=== PATIENT | female | born 1950 | race Caucasian/White ===

== ENCOUNTER → 2017-04-17 15:10 | Outpatient (CLI) | payer MEDICARE, OTHER, SELFPAY ==
--- NOTE | 2017-04-17 15:19 | US_ITS ---
STUDY: ULTRASOUND OF THE FEMALE PELVIS - COMPLETE REASON FOR EXAM: Female, 66 years old. Uterine enlargement. TECHNIQUE: Transabdominal and transvaginal. TECHNICAL QUALITY: Adequate. COMPARISON: None. FINDINGS: The uterus is anteverted and is in a midline position. The uterus measures 12.3 x 8 1 x 7.8 cm. Normal uterine cervix. The endometrium measures 8 mm in thickness, and is hyperechoic. There is no demonstrated endometrial mass. There are 2 large fibroids measuring 5.2 x 4.9 x 4.7 cm and 5.1 x 4.3 x 4.3 cm. I.U.D. - The patient does not have an I.U.D. The ovaries are not visualized. No visualized adnexal masses. There is no fluid in the cul-de-sac. Unremarkable distended urinary bladder. US/Transvaginal Non- IMPRESSION: Enlarged uterus secondary to 2 large fibroids measuring 5.2 x 4.9 x 4.7 cm and 5.1 x 4.3 x 4.3 cm. The endometrial thickness is 9 mm with hyperechoic endometrium. This would be thicker than normal for postmenopausal status; however, this may not be a true cross-sectional measurement as the endometrium is distorted by the presence of fibroids. Nonvisualized ovaries. No adnexal masses or free fluid. Electronically Signed: Guerita Velasquez MD at 0:02 EST , Service support ,
--- NOTE | 2017-04-17 15:19 | US_ITS ---
STUDY: ULTRASOUND OF THE FEMALE PELVIS - COMPLETE REASON FOR EXAM: Female, 66 years old. Uterine enlargement. TECHNIQUE: Transabdominal and transvaginal. TECHNICAL QUALITY: Adequate. COMPARISON: None. FINDINGS: The uterus is anteverted and is in a midline position. The uterus measures 12.3 x 8 1 x 7.8 cm. Normal uterine cervix. The endometrium measures 8 mm in thickness, and is hyperechoic. There is no demonstrated endometrial mass. There are 2 large fibroids measuring 5.2 x 4.9 x 4.7 cm and 5.1 x 4.3 x 4.3 cm. I.U.D. - The patient does not have an I.U.D. The ovaries are not visualized. No visualized adnexal masses. There is no fluid in the cul-de-sac. Unremarkable distended urinary bladder. US/Pelvic (Non ) IMPRESSION: Enlarged uterus secondary to 2 large fibroids measuring 5.2 x 4.9 x 4.7 cm and 5.1 x 4.3 x 4.3 cm. The endometrial thickness is 9 mm with hyperechoic endometrium. This would be thicker than normal for postmenopausal status; however, this may not be a true cross-sectional measurement as the endometrium is distorted by the presence of fibroids. Nonvisualized ovaries. No adnexal masses or free fluid. Electronically Signed: Guerita Velasquez MD at 0:02 EST , Service support ,
== END ==
DX: N85.2 Hypertrophy of uterus (principal)
CPT/HCPCS: 76830; 76856

== ENCOUNTER → 2017-07-06 07:22 | Outpatient (CLI) | payer MEDICARE, OTHER, SELFPAY ==
--- NOTE | 2017-07-06 09:14 | RAD_ITS ---
STUDY: X-RAY - LUMBAR SPINE REASON FOR EXAM: Female, 67 years old. Back pain, arthralgia. TECHNIQUE: 3 view(s) of the lumbar spine were obtained. COMPARISON: None FINDINGS: Normal lumbar lordosis. There is a 14-15 degree dextroscoliosis of the lumbar spine centered at L3-4. There is a grade 1 spondylolisthesis of L4 on L5. There is multilevel endplate spondylosis of the lumbar vertebrae. There is multi-level degenerative disc disease with multi-level disc space narrowing. There is no demonstrated fracture. The soft tissue structures are unremarkable. RAD/Lumbar Spine 2 or 3 Views IMPRESSION: Degenerative changes of the spine, as detailed above. Electronically Signed: Олег Burgess MD at 10:00 EDT , Service support ,
[2017-07-06 10:12] LABS: Erythrocyte Sedimentation Rate 10 mm/hr (0-30)
[2017-07-06 10:15] LABS: ALB/GLOB Ratio 0.9 RATIO (0.9-2.4); AST(SGOT) 22 U/L (15-37); Alanine Aminotransfer ALT/SGPT 39 U/L (13-56); Albumin, Serum 3.7 g/dL (3.2-5.0); Alkaline Phosphatase 103 U/L (45-117); Anion Gap 8 (5-15); BUN 10 mg/dL (7-18); BUN/Creat Ratio 14.2 RATIO (10-20); Calcium,Total 8.8 mg/dL (8.5-10.1); Chloride 103 mmol/L (98-107); Cholesterol 175 mg/dL (200); EST Glomerular Filtration Rate 88 mL/min (>60); Est Glom Filt Rate - Afr Amer 107 mL/min (>60); Glucose 110 mg/dL (74-106); High Density Lipoprotein 76 mg/dL; Potassium 3.8 mmol/L (3.5-5.1); Protein, Total 7.7 g/dL (6.4-8.2); Sodium Level 140 mmol/L (136-145); T4 Free Direct 0.73 ng/dL (0.76-1.46); Thyroid Stim Hormone (TSH) 0.09 uIU/mL (0.358-3.74); Triglycerides 131 mg/dL; Very Low Density Lipoprotein 26 mg/dL (5-40)
[2017-07-06 10:16] LABS: T3 Total - Triiodothyronine 1.28 ng/mL (0.6-1.81)
== END ==
PROVIDERS: Family Provider Family Medicine; PCP Family Medicine; Visit Provider Family Medicine
DX: E03.9 Hypothyroidism, unspecified (principal); M25.50 Pain in unspecified joint; R53.83 Other fatigue
CPT/HCPCS: 36415; 72100; 80053; 80061; 84439; 84443; 84480; 85652

== ENCOUNTER 2017-09-24 11:00 | Outpatient (RCR) | payer MEDICARE, OTHER, SELFPAY ==
--- NOTE | 2017-08-21 08:34 | HP.PTREVAL_ITS ---
Tim Hernandez, DO, It has been my pleasure to treat CAMILLE BERNABE over the last 1 visits for back pain. Please see the progress note below for an update on the physical therapy plan of care! Plan Plan: Scap stab ex's, core strengthening, BUE strengthening, UBE, and HEP Goals Goal 1:: Decrease T/S pain x 50% to aid with sleep Goal Time Frame: 4-6 Weeks Goal 2:: Increase B UE strength x 1 grade to aid with IADL's Goal Time Frame: 4-6 Weeks Goal 3:: I with HEP Goal Time Frame: 4-6 Weeks Anticipated Interventions Patient/Client Instruction: Educate patient on: Condition, Plan of Care For the Purpose of:: To improve self management Therapeutic Exercise to Include: Strength training, Endurance training, Dynamic Lumbar Stabilization, Scapular Strength/Stabilization For the Purpose of:: To decrease pain, To increase ROM, To improve muscle performance and motor function Thermo therapy (hot pack): Yes Ultrasound (thermal/non thermal): Yes For the Purpose of:: To decrease pain Please do not hesitate to contact me at [phone] by phone or Fax: if you have questions or concerns regarding this new plan of care! Sincerely, Vinay Prince, PT,
--- NOTE | 2017-09-23 08:11 | HP.PTREVAL_ITS ---
Tim Hernandez, DO, It has been my pleasure to treat CAMILLE BERNABE over the last 10 visits for back pain. Please see the progress note below for an update on the physical therapy plan of care! Subjective: Pt reports she is feeling the best she has felt today. Pt spoke with Dr about blood pressure, he just wants us to monitor it at this time. Objective/Function: T/S pain today is the best it has been at 3/10. Usually rated at 5/10. MMT; B UE's are 5/5 throughout with exception to shoulder flex= 4+/5 and abduction= 4-/5. Pt is becoming I with HEP. Pt is progressing well toward Rx goals as of this date and would benefit from further skilled PT Plan Plan: Scap stab ex's, core strengthening, BUE strengthening, UBE, and HEP. Goals Goal 1:: Decrease T/S pain x 50% to aid with sleep Goal Time Frame: 4-6 Weeks Goal Progress: Progressing Goal 2:: Increase B UE strength x 1 grade to aid with IADL's Goal Time Frame: 4-6 Weeks Goal Progress: Progressing Goal 3:: I with HEP Goal Time Frame: 4-6 Weeks Goal Progress: Progressing Anticipated Interventions Patient/Client Instruction: Educate patient on: Condition, Plan of Care For the Purpose of:: To improve self management Therapeutic Exercise to Include: Strength training, Endurance training, Dynamic Lumbar Stabilization, Scapular Strength/Stabilization For the Purpose of:: To decrease pain, To increase ROM, To improve muscle performance and motor function Thermo therapy (hot pack): Yes Ultrasound (thermal/non thermal): Yes For the Purpose of:: To decrease pain Please do not hesitate to contact me at [phone] by phone or Fax: if you have questions or concerns regarding this new plan of care! Sincerely, Vinay Prince, PT,
--- NOTE | 2017-09-24 11:25 | HP.PTDCSUM ---
HP - PT D/C Summary It has been my pleasure to treat CAMILLE BERNABE under orders from Tim Hernandez DO, for the diagnosis of back pain for a total of 11 visit(s). Discharge Date: Please see the following information for a summary of their discharge status. - Subjective Subjective: Pt reports this is the worst she has felt. Pt has been awake since 2:00 am due to pain. - Pain thoracic spine Pain Intensity (Out of 10): 9 - Objective Objective/Function: Pt has not made any permanent improvements at this time. Pt is in 9/10 pain and has high BP entering the clinic. I recommended pt see PCP or ER today secondary to her above mentioned symptoms. - Goals Goal 1:: Decrease T/S pain x 50% to aid with sleep Goal Progress: Progressing Goal 2:: Increase B UE strength x 1 grade to aid with IADL's Goal Progress: Progressing Goal 3:: I with HEP Goal Progress: Progressing - Plan Plan: Discontinue - D/C Information If there are questions or concerns regarding this patient's physical therapy, please feel free to call me at [phone]. Thank you for the referral of this patient. Sincerely, Vinay Prince, PT,
--- NOTE | 2017-09-24 11:28 | HP.PTDCSUM_ITS ---
HP - PT D/C Summary It has been my pleasure to treat CAMILLE BERNABE under orders from Tim Hernandez DO, for the diagnosis of back pain for a total of 11 visit(s). Discharge Date: Please see the following information for a summary of their discharge status. - Subjective Subjective: Pt reports this is the worst she has felt. Pt has been awake since 2 :00 am due to pain. - Pain thoracic spine Pain Intensity (Out of 10): 9 - Objective Objective/Function: Pt has not made any permanent improvements at this time. Pt is in 9/10 pain and has high BP entering the clinic. I recommended pt see PCP or ER today secondary to her above mentioned symptoms. - Goals Goal 1:: Decrease T/S pain x 50% to aid with sleep Goal Progress: Progressing Goal 2:: Increase B UE strength x 1 grade to aid with IADL's Goal Progress: Progressing Goal 3:: I with HEP Goal Progress: Progressing - Plan Plan: Discontinue - D/C Information If there are questions or concerns regarding this patient's physical therapy, please feel free to call me at [phone]. Thank you for the referral of this patient. Sincerely, Vinay Prince, PT,
== END 2017-09-24 11:56 | disposition home or self-care (01) ==
LOC: PT 11:00
PROVIDERS: Family Provider Family Medicine; PCP Family Medicine; Visit Provider Family Medicine
DX: M54.5 Low back pain (principal); G89.29 Other chronic pain
CPT/HCPCS: 97035; 97110; 97161; 97530

== ENCOUNTER 2017-09-24 11:36 | Observation (INO) | payer MEDICARE, OTHER, SELFPAY ==
[2017-09-24] VITALS (13 sets, daily range): BP systolic 132–207; BP diastolic 75–113; PULSE 71–85; RESP 16–23; TEMP 36.6–36.9; O2SAT 95–99; BMI 43.4; BMI 44.0
--- NOTE | 2017-09-24 12:04 | EKG12_ITS ---
Test Reason : CP
--- NOTE | 2017-09-24 12:04 | RAD_ITS ---
STUDY: X-RAY CHEST REASON FOR EXAM: Female, 67 years old. Chest pain x10 hour TECHNIQUE: PA and lateral views of the chest. COMPARISON: None. FINDINGS: Lungs are hyperexpanded with chronic interstitial changes. There is suggestion on the PA film of a right perihilar nodule measuring 2.5 cm. Consider further evaluation with chest CT since no previous studies are available for comparison. There is no demonstrated pleural abnormality. Normal size heart. Normal mediastinum and diane. Normal visualized pulmonary arteries. Normal visualized aortic arch and descending thoracic aorta. There are diffuse degenerative changes of the visualized thoracic spine. There is degenerative osteoarthritis of the bilateral shoulders. There is no demonstrated abnormality of the visualized soft tissue structures of the upper abdomen. RAD/Chest PA and Lateral IMPRESSION: Hyperexpanded lungs with chronic interstitial changes and possible right perihilar nodule. Consider further evaluation with chest CT. No organized infiltrate or effusion. Electronically Signed: Олег Urbina MD at 12:39 EDT , Service support ,
--- NOTE | 2017-09-24 12:08 | NURSING ---
NO OLD EKGS
[2017-09-24] MEDS: Aspirin 81 MG TAB.CHEW 324 MG PO (12:10)
[2017-09-24 12:21] LABS: Absolute Lymphocyte Count 1.82 X10^3/ul (0.83-4.51); Absolute Neutrophil Count 5.1 X10^3/uL (2.0-7.7); Basophil# 0.03 X10^3/uL; Basophil% 0.4 % (0-1); Eosinophil# 0.14 X10^3/uL; Eosinophils% 1.8 % (0-5); Hematocrit 40.9 % (37-47); Hemoglobin 13.5 g/dl (12.0-15.0); Lymphocyte # 1.82 X10^3/ul (4.0); Lymphocyte % 23.4 % (19-41); Mean Corpuscular Hgb 29.1 pg (27.0-32.0); Mean Corpuscular Volume 88.1 fL (81-99); Mean Platelet Vol. 9.6 fl (6.2-12.0); Monocyte# 0.73 X10^3/uL; Monocyte% 9.4 % (0-10); Neutrophil # 5.06 X10^3/uL (2.7-7.7); Neutrophil % 64.9 % (47-70); Platelet Count 321 K/mm3 (150-450); RBC Distribution Width CV 13.6 % (11.6-14.6); RBC Distribution Width SD 43.8 fl (35.1-43.9); Red Blood Count 4.64 M/mm3 (4.2-5.4); White Blood Count 7.8 K/mm3 (4.4-11.0)
[2017-09-24 12:22] LABS: POSITIVE COUNT NO; POSITIVE DIFFERENTIAL NO; POSITIVE MORPHOLOGY NO
--- NOTE | 2017-09-24 12:26 | NURSING ---
CHEMISTRIES HEMOLIZED.
[2017-09-24 13:11] LABS: Anion Gap 6 (5-15); BUN 14 mg/dL (7-18); BUN/Creat Ratio 20.7 RATIO (10-20); Calcium,Total 9.3 mg/dL (8.5-10.1); Chloride 105 mmol/L (98-107); Creatinine, Serum 0.68 mg/dL (0.55-1.02); EST Glomerular Filtration Rate 92 mL/min (>60); Est Glom Filt Rate - Afr Amer 112 mL/min (>60); Estimated Creatinine Clearance 45.78 ml/min; Glucose 92 mg/dL (74-106); Potassium 3.6 mmol/L (3.5-5.1); Sodium Level 142 mmol/L (136-145)
--- NOTE | 2017-09-24 13:42 | ED.DCSUM_ITS ---
- ER Visit Summary Date of Service: 09/24/17 Chief Complaint: Lightheaded and elevated blood pressure History of Present Illness: The patient is a 67 F who presents with lightheadedness and elevated blood pressure. She states her blood pressure has been elevated and uncontrolled for the past week. This was checked at physical therapy because she had been feeling lightheaded. She called her family physician and does have an appointment in October. However she was advised that if symptoms continue to go to the emergency department. She will also complains of intermittent left-sided chest pain which radiates up into the neck and some pain and her left hand over the past 2 weeks. This is aching. She states been constant for the last 10 hours. She denies shortness of breath or nausea. Physical Examination: Afebrile blood pressure 193/79 vitals otherwise unremarkable Heart regular rate and rhythm Lungs clear Abdomen soft Alert 2+ at radial pulses Test Results: EKG shows sinus rhythm at a rate of 80. CBC BMP normal. Troponin negative. Chest x-ray shows chronic changes questionable right perihilar nodule. Emergency Department Course and Treatment: Patient was given aspirin and placed on a registered nurse cardiac telemetry. On reevaluation her systolic blood pressure has improved to 140s. She now states her pain is resolved. I am concerned given her uncontrolled blood pressure with complaints of left-sided chest pain with radiation to the neck and do feel she should be admitted for serial enzymes and likely stress testing. Her KESHIA score is 1, her heart score is 3. Treatment Plan: [] Disposition: Admit Impression: Chest pain Uncontrolled hypertension This note was generated with [employer] dictation software. It may contain incorrect words, spelling, and punctuation that were not noted in review of the chart prior to signing ED Disposition - Plan for ED Patient: Chief Complaint: Hypertension Referrals: Tim Hernandez DO [Primary Care Provider] -
--- NOTE | 2017-09-24 14:09 | NURSING ---
PCU OBS MAJO YOO
--- NOTE | 2017-09-24 14:14 | HP.PCM_ITS ---
Problem List (1) Chest pain Status: Acute History of Present Illness Date of Admission: 09/24/17 Chief Complaint: chest pain. The patient is a 67 year old F who was working with physical therapy today who is doing shoulder shrugs with therapy and then felt dizzy and then left-sided chest pressure radiating down her left arm. Symptoms resolved after short period of time. Physical therapist was concerned and advised patient come to the emergency room. In the emergency room, patient had a workup that was unremarkable. Patient has never had chest pain like that before. Patient is normally fairly active walking 6000 and 10,000 steps per day but really does not do any other kind exercise. Patient is able to go up stairs where she does get winded but that has been a chronic process for decades and she notes no new changes with that. She does not have chest pain one going upstairs. [] Past Medical History Past Medical History (Chronic Problems): Chronic Problems (Last Updated 07/03/17 @ 15:39 by Kendy Arechiga) Vitamin deficiency (Chronic) Back problem (Chronic) Medical History: Medical History (Last Updated 09/24/17 @ 14:10 by Kimani Sanches DO) Vitamin deficiency (Chronic) E56.9 Back problem (Chronic) M53.9 HTN (hypertension) I10 Allergies latex Allergy (Intermediate, Verified 07/03/17 15:27) Rash Home Medications: Ambulatory Orders Medication Instructions Recorded A-F BETAFOOD 1 tab PO DAILY 07/03/17 Advanced Mitochondrial EGY 1 tab PO DAILY 07/03/17 CATAPLEX 1 tab PO DAILY 07/03/17 CATAPLEX C 1 tab PO DAILY 07/03/17 DRENAMIN 1 tab PO DAILY 07/03/17 LIPOTHIAMINE B 1 tab PO DAILY 07/03/17 Triode - L Thytonine 1 tab PO DAILY 07/03/17 Surgical History: Surgical History (Last Reviewed 09/24/17 @ 14:10 by Kimani Sanches DO) History of removal of cyst Z98.890 Left shoulder Smoking Status: Never smoker Tobacco Use: Non-smoker Alcohol: None Drugs: None - *Family History Paternal Family History: Family History (Last Updated 07/03/17 @ 15:42 by Kendy Arechiga) Mother Anemia Arthritis Breast cancer CVA (cerebral vascular accident) Father Myocardial infarction Heart disease Grandmother Liver disease Son Anxiety History Items: Heart Disease Review of Systems Constitutional: Denies: Chills, Fever, Weight Change Eyes: Denies: Blurred vision, Double vision HEENT: Denies: Head Aches, Sinus Congestion, Sinus Drainage Cardiovascular: Reports: Chest Pain. Denies: Edema Respiratory: Denies: Cough, Shortness of breath at rest, Sputum production Gastrointestinal: Denies: Abdominal Pain, Nausea, Vomiting Genitourinary: Denies: Dysuria Musculoskeletal: Reports: Arm Pain, Back Pain Skin: Denies: Rash, Wounds Neurological: Denies: Numbness, Tingling, Focal weakness Psychiatric: Denies: Anxiety, Depression Endocrine: Reports: Change in Body Habitus - Has put on 10 pounds in the past year, Heat/ Cold Intolerance - Feels hot all the time Hematologic/ Lymphatic: Reports: Easy Bruising. Denies: Easy Bleeding, Hx of blood clot Comment: All review of systems are negative except as mentioned in the history of present illness and the other review of systems. VTE Information - Inpt Only VTE Present on Admission: No VTE Mechan Device Prophylaxis: None VTE Pharm Prophylaxis ordered?: Yes Patient Problems: Active and Suspected Problems (Last Updated 07/03/17 @ 15:39 by Kendy Arechiga) Chest pain (Acute) - Physical Exam General: Alert, Cooperative, No apparent distress, - - No conversational dyspnea. No respiratory distress. HEENT: Atraumatic, Normocephalic Neck: No Nodes, Thyroid Normal Size and Texture Lungs: Clear to auscultation, Normal air movement, No rhonchi, No wheeze Cardiovascular: Regular rate, Regular Rhythm, Normal S1, Normal S2, No murmurs Abdomen: Bowel Sounds Present, Soft, Non Tender, Non-Distended, Obese Extremities: No edema, No Calf Tenderness Skin: No rashes, No breakdown Musculoskeletal: No Tenderness to Palpation of Joints or Extremities, No Muscle Wasting Psych/Mental Status: Normal Affect, Appropriate Vital Signs Temp Pulse Resp BP Pulse Ox 36.8 C 80 17 185/99 H 95 09/24/17 11:37 09/24/17 14:06 09/24/17 14:06 09/24/17 14:06 09/24/17 14:06 Oxygen Delivery Method Room Air Weight: 111.13 kg Body Mass Index (BMI) 43.4 Laboratory Tests Past 24 Hrs 09/24/17 09/24/17 09/24/17 12:15 12:15 12:36 WBC 7.8 RBC 4.64 Hgb 13.5 Hct 40.9 MCV 88.1 MCH 29.1 MCHC 33.0 RDW 13.6 RDW Differential 43.8 Plt Count 321 MPV 9.6 Immature Gran % (Auto) 0.100 Neut % (Auto) 64.9 Lymph % (Auto) 23.4 [place] % (Auto) 9.4 Eos % (Auto) 1.8 Baso % (Auto) 0.4 Absolute Neuts (auto) 5.1 Absolute Lymphs (auto) 1.82 Total Counted Not Reportable Sodium Cancelled 142 Potassium Cancelled 3.6 Chloride Cancelled 105 Carbon Dioxide Cancelled 31.0 Anion Gap Cancelled 6 BUN Cancelled 14 Creatinine Cancelled 0.68 Estim Creat Clear Calc Cancelled 45.78 Est GFR (MDRD) Af Amer Cancelled 112 Est GFR (MDRD) Non-Af Cancelled 92 BUN/Creatinine Ratio Cancelled 20.7 H Glucose Cancelled 92 Calcium Cancelled 9.3 Troponin I Cancelled < 0.015 Chest x-ray reviewed and no acute infiltrates nor pulmonary edema. EKG reviewed and showed normal sinus rhythm without any acute changes. Assessment/Plan All Active Problems (Last Updated 07/03/17 @ 15:39 by Kendy Arechiga) Chest pain (Acute) 1. Chest pain * Heart score of 4 * Recommended patient be admitted to complete a stress test. Patient is normally pretty active and walks around quite a bit so she feels that she would be able to complete a treadmill stress test. Told patient that they will be performed on the . * In the meantime, patient will be on aspirin, have troponin cycled. 2. Hypertension * Fairly new diagnosis for her. Patient has had blood pressures in the past few days. Feel that would be prudent to start her on 5 mg of lisinopril. 3. DVT prophylaxis with Lovenox Code Visit OBSV E&M: [id number] Initial observation care L2
--- NOTE | 2017-09-24 14:37 | NURSING ---
1437 called er charge to receive patient
[2017-09-24] MEDS: Lisinopril 5 MG Tablet PO (16:09)
[2017-09-25 03:05] VITALS: PULSE 74
[2017-09-25 04:29] VITALS: BP 138/77; PULSE 65; RESP 20; TEMP 36.4; O2SAT 96
[2017-09-25 05:33] LABS: Absolute Lymphocyte Count 1.57 X10^3/ul (0.83-4.51); Absolute Neutrophil Count 3.8 X10^3/uL (2.0-7.7); Basophil# 0.02 X10^3/uL; Basophil% 0.3 % (0-1); Eosinophil# 0.19 X10^3/uL; Eosinophils% 3.1 % (0-5); Hematocrit 40.6 % (37-47); Hemoglobin 13.2 g/dl (12.0-15.0); Lymphocyte # 1.57 X10^3/ul (4.0); Mean Corp Hgb Conc 32.5 g/gl (32-36); Mean Corpuscular Volume 89.2 fL (81-99); Mean Platelet Vol. 9.3 fl (6.2-12.0); Monocyte# 0.48 X10^3/uL; Monocyte% 7.9 % (0-10); Neutrophil # 3.79 X10^3/uL (2.7-7.7); Neutrophil % 62.7 % (47-70); Platelet Count 316 K/mm3 (150-450); RBC Distribution Width CV 13.8 % (11.6-14.6); RBC Distribution Width SD 44.8 fl (35.1-43.9); Red Blood Count 4.55 M/mm3 (4.2-5.4); White Blood Count 6.1 K/mm3 (4.4-11.0)
[2017-09-25] MEDS: Aspirin E.C. 81 MG Tablet PO (05:43)
[2017-09-25] MEDS: Lisinopril 5 MG Tablet PO (05:43)
[2017-09-25] MEDS: 0.9% NaCl Peripheral Flush Adult/Peds IV (05:44)
[2017-09-25 05:53] LABS: International Normalized Ratio 0.9; Prothrombin Time (Protime)PT. 12.5 SECONDS (11.7-14.9)
[2017-09-25 05:54] LABS: Partial Thromboplast Time 30.3 Seconds (24.1-36.2)
--- NOTE | 2017-09-25 05:55 | STEWCON_ITS ---
Reason For Study: Chest Pain Stress Results Protocol: Drake Protocol Maximum Predicted HR: 154 bpm Target HR: 131 bpm% Max imum Predicted HR: 92 % DurationHeart Rate Stage (mm:ss) (bpm) BPCom ment Baseline 73 148/88 2cc definity Stage 1 3:00 14 1 180/821.5 CC definity Recovery 86 152/88 Stress Duration: 3:00 mm:ss Maximum Stress HR: 141 bpm Baseline Echocardiogram Findings The estimated ejection fraction is 65 %. Stress Echo Wall motion Data Resting WMIntermediate WMStress WM Resting Wall Motion Wall Motion Stress No regional wall motion No regional wall motion abnormalities noted. abnormalities noted. EKG Data The baseline ECG demonstrates normal sinus rhythm with at rate of _ beats per minute. The patient exercised according to the regular Drake protocol for a total duration of 3:00. The maximum heart rate attained was 148 beats per minute. This was 96% of maximum predicted heart rate. The patient exercised into stage 1 of the Drake protocol. During stress, there were no ST or T wave changes noted to suggest ischemia. No clinical angina was noted. Interpretation Summary The study was technically difficult. Contrast injection was performed. The estimated ejection fraction is 65 %. Normal, adequate, treadmill echocardiogram. Negative for ischemia by EKG and echocardiographic criteria. No anginal symptoms noted. Rare PACs noted. Appropriate blood pressure hypertensive blood pressure response to exercise. Poor exercise capacity for age. Decreased sensitivity due to poor echo windows requiring Definity agent. Final LVEF of 70%. Reason for test termination not documented. No complications. Ordering Physician: Kimani Sanches Performed By: Ted Otero RCS
--- NOTE | 2017-09-25 05:55 | EKG12_ITS ---
Test Reason : AM EKG Blood Pressure : / mmHG Vent. Rate : 074 BPM Atrial Rate : 074 BPM P-R Int : 154 ms QRS Dur : 080 ms QT Int : 434 ms P-R-T Axes : 063 045 063 degrees QTc Int : 481 ms Normal sinus rhythm Normal ECG Reconfirmed by VALENTINA COFFEY, MISTI ([id number]), editor & co founder BAYLEE ADKINS ([id number]) on 09/29/2017 3:25:57 PM Referred By: NAILA Confirmed By:MISTI MONTGOMERY MD
[2017-09-25 06:10] LABS: POSITIVE COUNT NO; POSITIVE DIFFERENTIAL NO; POSITIVE MORPHOLOGY NO
[2017-09-25 06:13] LABS: Anion Gap 6 (5-15); BUN 15 mg/dL (7-18); BUN/Creat Ratio 20.9 RATIO (10-20); Calcium,Total 8.8 mg/dL (8.5-10.1); Chloride 106 mmol/L (98-107); Cholesterol 173 mg/dL (200); Creatinine, Serum 0.72 mg/dL (0.55-1.02); EST Glomerular Filtration Rate 87 mL/min (>60); Est Glom Filt Rate - Afr Amer 105 mL/min (>60); Estimated Creatinine Clearance 45.78 ml/min; Glucose 106 mg/dL (74-106); High Density Lipoprotein 71 mg/dL; Potassium 4.2 mmol/L (3.5-5.1); Sodium Level 143 mmol/L (136-145); Thyroid Stim Hormone (TSH) 3.97 uIU/mL (0.358-3.74); Triglycerides 143 mg/dL; Very Low Density Lipoprotein 29 mg/dL (5-40)
[2017-09-25 06:59] VITALS: PULSE 89
[2017-09-25 10:00] VITALS: BP 143/79; PULSE 84; RESP 16; TEMP 36.4; O2SAT 97
[2017-09-25 10:59] VITALS: PULSE 82
--- NOTE | 2017-09-25 13:16 | DCINST_ITS ---
- Discharge Diagnoses Current Active Problems: Current Active and Chronic Problems (Last Updated 09/24/17 @ 14:10 by Kimani Sanches DO) Chest pain (Acute) Reason(s) for Visit for Discharge Instructions: Chest pain. You will use the following diet at home:: Cardiac Your food should be the consistency of: Regular Your liquids should be the consistency of: Regular/Thin Discharge Activity: Return to Normal Activity Additional Instructions: You should take your blood pressure every morning and keep a log of it to show to your primary care doctor in 1-2 weeks. Continue to exercise and maintain a low salt diet(2 grams). You should continue with your physical therapy sessions at [facility]. Allergies/Adverse Reactions: Allergies latex Allergy (Intermediate, Verified 07/03/17 15:27) Rash Medications to take at Discharge A-F BETAFOOD 2 tab PO BID 07/03/17 Advanced Mitochondrial EGY 1 tab PO BID 07/03/17 CATAPLEX 2 tab PO BID 07/03/17 CATAPLEX C 1 tab PO BID 07/03/17 DRENAMIN 3 tab PO BID 07/03/17 LIPOTHIAMINE B 2 tab PO DAILY 07/03/17 Triode - L Thytonine 1 tab PO DAILY 07/03/17 Aspirin E.C. [Ecotrin] 81 mg PO DAILY@0800 #30 tab 09/25/17 Lisinopril [Zestril] 5 mg PO DAILY #30 tab 09/25/17 The following prescriptions were given: Aspirin E.C. [Ecotrin] 81 mg PO DAILY@0800 #30 tab Lisinopril [Zestril] 5 mg PO DAILY #30 tab Primary Care Physician: Tim Hernandez DO [Primary Care Provider] - Please follow up with your Primary Care Physician in: within 2 weeks Test Results: Test results from this visit will be discussed in further detail at your follow- up appointment, if applicable. Proposed Discharge Date: 09/25/17
--- NOTE | 2017-09-25 13:32 | DS.PCM_ITS ---
Discharge Date and Diagnosis Date of Admission: 09/24/17 Date of Discharge: 09/25/17 - Primary Discharge Diagnosis Active and Suspected Problems (Last Updated 09/24/17 @ 14:10 by Kimani Sanches DO ) Chest pain (Acute) Hypertensive urgency, present on admission Newly diagnosed hypertension - Secondary Discharge Diagnosis Chronic Problems (Last Updated 09/24/17 @ 14:10 by Kimani Sanches DO) Vitamin deficiency (Chronic) Back problem (Chronic) Hospital Course and Treatment Imaging Results: 09/25/17 05:55 Stress Test Echo W/Contrast [ECHO] AM (NON MEDS) Clinical Impression(s) from Imaging Studies Chest X-Ray 09/24/17 12:04 IMPRESSION: Hyperexpanded lungs with chronic interstitial changes and possible right perihilar nodule. Consider further evaluation with chest CT. No organized infiltrate or effusion. Electronically Signed: Олег Urbina MD at 12:39 EDT , Service support , None Operations: None Procedures: Stress test Summary of Care Provided: The patient is a 67 year old F with morbid obesity, chronic back pain, who was working with physical therapy for back pain when she started feeling dizzy and having left-sided chest pressure. This lasted for a short period of time. She was recommended to come to the emergency department. She had previously worked a day prior with a physical therapist and felt slightly dizzy and her blood pressure, when taken, was elevated. She denies any elevated blood pressure issues in the past. She had blood pressure rechecked prior to the next therapy and it was normal. Her systolic blood pressure in the emergency room was between 193-207. She was admitted to the telemetry floor, monitored, no acute events, she underwent stress test that was negative. Patient's blood pressure been elevated during the hospital stay. She was started on lisinopril in the hospital with improvement. He was discharged on aspirin and lisinopril and asked to follow-up with her primary care doctor in 1 week. A blood pressure monitor was also prescribed for her and she was asked to check her blood pressure daily. Discharge Diet: Low fat/ Low Cholesterol, 2000 mg Sodium Diet Discharge Activity: Return to Normal Activity Home Medications: Medications to take at Discharge A-F BETAFOOD 2 tab PO BID 05/04/18 Advanced Mitochondrial EGY 1 tab PO BID 07/03/17 CATAPLEX 2 tab PO BID 07/03/17 CATAPLEX C 1 tab PO BID 07/03/17 DRENAMIN 3 tab PO BID 07/03/17 LIPOTHIAMINE B 2 tab PO DAILY 07/03/17 Triode - L Thytonine 1 tab PO DAILY 07/03/17 Aspirin E.C. [Ecotrin] 81 mg PO DAILY@0800 #30 tab 09/25/17 Lisinopril [Zestril] 5 mg PO DAILY #30 tab 09/25/17 Following Prescrptions Were Given to Patient: Aspirin E.C. [Ecotrin] 81 mg PO DAILY@0800 #30 tab Lisinopril [Zestril] 5 mg PO DAILY #30 tab Primary Care Physician: Tim Hernandez DO [Primary Care Provider] - Please follow up with your Primary Care Physician in: within 2 weeks Disposition: Home Minutes spent on discharge:: 35 Patient Condition:: Stable Medical Necessity - Tobacco Use Smoking Status: Never smoker Tobacco Use: Non-smoker Meaningful Use Info Meaningful Use Diagnoses (Choose all that apply): None applicable Code Visit OBSV E&M: 62486 Observation care discharge
[2017-09-25 13:41] VITALS: BP 153/78; BP 153/85; BP 155/78; PULSE 73; PULSE 77
== END 2017-09-25 13:16 | disposition home or self-care (01) ==
LOC: ED 13:07 → PCU 14:31
PROVIDERS: Emergency Provider Emergency Medicine; Family Provider Family Medicine; PCP Family Medicine; Visit Provider Internal Medicine
DX: I16.0 Hypertensive urgency (principal); R07.89 Other chest pain; I10 Essential (primary) hypertension; E56.9 Vitamin deficiency, unspecified; E66.01 Morbid (severe) obesity due to excess calories; Z68.41 Body mass index [BMI] 40.0-44.9, adult; Z71.3 Dietary counseling and surveillance
CPT/HCPCS: 36415; 71046; 80048; 80061; 84443; 84484; 85025; 85610; 85730; 93005; 93017; 93350; 99218; 99283; Q9957; A4216; C8928; G0378

== ENCOUNTER → 2017-10-23 14:21 | Outpatient (CLI) | payer MEDICARE, OTHER, SELFPAY ==
[2017-10-23 15:36] LABS: Anion Gap 9 (5-15); BUN 13 mg/dL (7-18); BUN/Creat Ratio 17.6 RATIO (10-20); Chloride 104 mmol/L (98-107); Creatinine, Serum 0.74 mg/dL (0.55-1.02); EST Glomerular Filtration Rate 83 mL/min (>60); Est Glom Filt Rate - Afr Amer 101 mL/min (>60); Glucose 120 mg/dL (74-106); Sodium Level 143 mmol/L (136-145)
== END ==
PROVIDERS: Family Provider Family Medicine; PCP Family Medicine; Visit Provider Nurse Practitioner Family
DX: I10 Essential (primary) hypertension (principal)
CPT/HCPCS: 36415; 80048

== ENCOUNTER 2017-11-11 08:09 | Outpatient (RCR) | payer MEDICARE, OTHER, SELFPAY | END 2017-11-29 23:59 | LOC: NS 08:09 | PROVIDERS: Family Provider Family Medicine; PCP Family Medicine; Visit Provider Family Medicine | DX: E66.9 Obesity, unspecified (principal); Z68.41 Body mass index [BMI] 40.0-44.9, adult; Z71.3 Dietary counseling and surveillance | CPT/HCPCS: 97802 ==

== ENCOUNTER 2017-12-15 13:00 | Outpatient (RCR) | payer MEDICARE, OTHER, SELFPAY | END 2017-12-30 23:59 | LOC: NS 13:00 | PROVIDERS: Family Provider Family Medicine; PCP Family Medicine; Visit Provider Family Medicine | DX: E66.9 Obesity, unspecified (principal); Z68.41 Body mass index [BMI] 40.0-44.9, adult; Z71.3 Dietary counseling and surveillance | CPT/HCPCS: 97803 ==

== ENCOUNTER 2018-01-20 14:30 | Outpatient (RCR) | payer MEDICARE, OTHER, SELFPAY | END 2018-01-29 23:59 | LOC: NS 14:30 | PROVIDERS: Family Provider Family Medicine; PCP Family Medicine; Visit Provider Family Medicine | DX: E66.9 Obesity, unspecified (principal); Z68.41 Body mass index [BMI] 40.0-44.9, adult; Z71.3 Dietary counseling and surveillance | CPT/HCPCS: 97803 ==

== ENCOUNTER 2018-02-10 13:54 | Outpatient (RCR) | payer MEDICARE, OTHER, SELFPAY ==
[2018-01-14 13:14] VITALS: BMI 42.7
== END 2018-03-01 23:59 ==
LOC: NS 13:54
PROVIDERS: Family Provider Family Medicine; PCP Family Medicine; Visit Provider Family Medicine
DX: E66.9 Obesity, unspecified (principal); Z68.41 Body mass index [BMI] 40.0-44.9, adult; Z71.3 Dietary counseling and surveillance
CPT/HCPCS: 97803

== ENCOUNTER 2018-04-01 14:00 | Outpatient (RCR) | payer MEDICARE, OTHER, SELFPAY ==
[2018-01-14 13:14] VITALS: BMI 42.7
== END 2018-04-01 23:59 ==
LOC: NS 14:00
PROVIDERS: Family Provider Family Medicine; PCP Family Medicine; Visit Provider Family Medicine
DX: E66.9 Obesity, unspecified (principal); Z68.41 Body mass index [BMI] 40.0-44.9, adult; Z71.3 Dietary counseling and surveillance
CPT/HCPCS: 97803

== ENCOUNTER 2018-04-29 15:30 | Outpatient (RCR) | payer MEDICARE, OTHER, SELFPAY ==
[2018-01-14 13:14] VITALS: BMI 42.7
== END 2018-04-29 23:59 ==
LOC: NS 15:30
PROVIDERS: Family Provider Family Medicine; PCP Family Medicine; Visit Provider Family Medicine
DX: E66.9 Obesity, unspecified (principal); Z68.41 Body mass index [BMI] 40.0-44.9, adult; Z71.3 Dietary counseling and surveillance
CPT/HCPCS: 97803

== ENCOUNTER 2018-05-18 14:24 | Outpatient (RCR) | payer MEDICARE, OTHER, SELFPAY ==
[2018-01-14 13:14] VITALS: BMI 42.7
== END 2018-05-30 23:59 ==
LOC: NS 14:24
PROVIDERS: Family Provider Family Medicine; PCP Family Medicine; Visit Provider Family Medicine
DX: E66.9 Obesity, unspecified (principal); Z68.41 Body mass index [BMI] 40.0-44.9, adult; Z71.3 Dietary counseling and surveillance
CPT/HCPCS: 97803

== ENCOUNTER 2018-06-01 10:43 | Outpatient (RCR) | payer SELFPAY ==
[2018-01-14 13:14] VITALS: BMI 42.7
== END 2018-06-01 23:59 | disposition home or self-care (01) ==
LOC: NS 10:43
PROVIDERS: Family Provider Family Medicine; PCP Family Medicine; Visit Provider Family Medicine
DX: E66.9 Obesity, unspecified (principal); Z68.41 Body mass index [BMI] 40.0-44.9, adult; Z71.3 Dietary counseling and surveillance
CPT/HCPCS: 97803

== ENCOUNTER → 2019-04-21 12:56 | Outpatient (CLI) | payer MEDICARE, OTHER, SELFPAY ==
[2018-07-14 14:39] VITALS: BMI 42.7
--- NOTE | 2019-04-21 13:04 | BI_ITS ---
MAMMOGRAPHY - BILATERAL SCREENING REASON FOR EXAM: Female, 68 years old. Routine annual screening examination. PERTINENT HISTORY: Mother with breast cancer. TECHNIQUE: Digital bilateral breast amparo (3D mammographic acquisition) in the CC and MLO projections. 2-D mediolateral oblique (MLO) and craniocaudad (CC) views of both breasts were obtained. CAD: Full Field Digital Mammography with Computer Added Detection was performed. COMPARISON: No comparison mammograms available at this time. If any prior films become available, an addendum to this report can be generated. FINDINGS: Breast Composition: There are scattered areas of fibroglandular density. There are no dominant masses or suspicious calcifications. No other significant abnormalities are identified. BI/SCREEN MAMM (CAD) W/AMPARO BILAT IMPRESSION: Negative screening mammogram. Yearly followup mammogram recommended. (A) ASSESSMENT CATEGORY: BIRADS Category 1: Negative. A letter regarding these results will be sent to the patient by the facility within 30 days. Approximately 10% of breast cancers are not detected by mammography. A normal mammogram should not delay biopsy of a clinically suspicious abnormality. [id number] Electronically Signed: Mario Randolph, at 15:36 EST , Service support ,
--- NOTE | 2019-04-21 13:46 | BD_ITS ---
STUDY: DUAL ENERGY X-RAY ABSORPTIOMETRY / DXA REASON FOR EXAM: Female, 68 years old. Age of rochelle- 51. Pat is 242.6# and 63 and quot; a loss of 2 and quot; per patient. Patient takes a medication called Nature Thyroid from her dr. Takes a multi-vit. Does not exercise. TECHNIQUE: Bone Mineral Density (BMD) measurements of lumbar spine and bilateral hips were obtained. COMPARISON: None. FINDINGS: Lumbar Spine (L1-L4): g/cm2 (1.141) / T-score (-0.3) / Z-score (1.3) Findings are suggestive of normal bone density with a low fracture risk. Left Femur Total: g/cm2 (1.035) / T-score (0.2) / Z-score (1.6) Left Femoral Neck: g/cm2 (0.849) / T-score (-1.4) / Z-score (0.2) Right Femur Total: g/cm2 (1.039) / T-score (0.2) / Z-score (1.6) Right Femoral Neck: g/cm2 (0.895) / T-score (-1.0) / Z-score (0.6) BD/Dexa Bone Density Study IMPRESSION: The patient is considered osteopenic as outlined below according to World Rony Organization (WHO) criteria with a low fracture risk. Reference Information: The T-score is the number of standard deviations above or below the standard which is normal for young adults at their peak bone mineral density. The World Health Organization (WHO) interprets the T-scores as follows: Above -1 Normal bone density Between -1 and -2.5 Osteopenia Equal to / or below -2.5 Osteoporosis As a practical clinical guideline, osteopenia may be graded as follows: Mild -1 through -1.5 Moderate -1.6 through -2.0 Severe -2.1 through -2.4 The Z-score is the number of standard deviations above or below age-matched controls. A Z-score of less than -1.5 would be considered abnormal. References: 1. NIH Osteoporosis and Related Bone Diseases http://www.osteo.org 2. International Society for Clinical Densitometry http://www.iscd.org 3. National Osteoporosis Foundation http://www.nof.org Electronically Signed: Mario Randolph, at 13:19 EST , Service support ,
== END ==
PROVIDERS: PCP Internal Medicine; Referring Provider Internal Medicine; Visit Provider Internal Medicine
DX: Z12.31 Encounter for screening mammogram for malignant neoplasm of breast (principal); Z78.0 Asymptomatic menopausal state
CPT/HCPCS: 77063; 77067; 77080

== ENCOUNTER → 2019-07-28 08:53 | Outpatient (CLI) | payer MEDICARE, OTHER, SELFPAY ==
[2019-07-14 11:03] VITALS: BMI 43.7
--- NOTE | 2019-07-28 08:54 | RDU_ITS ---
Reason For Study: HTN Right Renal Artery Left Renal Artery Right renal artery ostium 71.6/20.5 Left renal artery ostium 73.4/15.0 RSV/EDV. PSV/EDV. Right renal artery proximal Left renal artery proximal PSV/EDV 99.0/15.0 PSV/EDV. 57.0/18.6 . Right renal artery mid 95.3/22.3 Left renal artery mid 84.4/22.3 PSV/EDV. PSV/EDV . Right renal artery distal 111.8/35.1 Left renal artery distal 145.6/31.6 PSV/EDV. PSV/EDV. Right Renal Parenchyma Left Renal Parenchyma Upper Pole Medula 23.7/8.4 PSV/EDV. Left upper pole medulla 48.6/14.8 Right upper pole medulla EDR .35 . PSV/EDV . Right upper pole medulla R.I. .65 . Left upper pole medulla EDR .3 . Upper Azeem Cortx 16.6/4.5 PSV/EDV. Left upper pole medulla R.I. .7 . Right upper pole cortex EDR .27 . UP Cortex 37.6/11.1 PSV/EDV. Right upper pole cortex R.I. .73 . Left upper pole cortex EDR .3 . Right lower Pole medulla 13.8/6.2 Left upper pole cortex R.I. .7 . PSV/EDV . Left lower Pole medulla 33.1/14.8 Right lower pole medulla EDR .44 . PSV/EDV . Right lower pole medulla R.I. .56 . Left lower pole medulla EDR .45 . Lower Pole Cortex 14.9/5.6 PSV/EDV. Left lower pole medulla R.I. .55 . Right lower pole cortex EDR .38 . Lower Pole Cortx 17.5/7.5 PSV/EDV. Right lower pole cortex R.I. .62 . Left lower pole cortex EDR .43 . Right Renal Hilar Left lower pole cortex R.I. .57 . Right Hilar avg 34.0/11.1 PSV/EDV. Left Renal Hilar Right hilar acceleration time 20.0 LT Hilar avg 76.7/22.3 PSV/EDV . m/sec. Left hilar acceleration time 40.0 Right Renal Dimensions m/sec. Right kidney size 14.95 cm . Left Renal Dimensions Right cortical dimension .93 cm . Left kidney size 12.62 cm . Hypoechoic area right kidney Left cortical dimension 1.34 cm . measuring 4.24 x 5.58 cm. Area is nonvascular. Aorta Proximal abdominal aorta 1.54 x 1.5 cm . Proximal abdominal aorta peak systolic velocity is 120.9 cm/sec . Distal abdominal aorta 1.51 x 1.48 cm . Distal abdominal aorta peak systolic velocity is 95.3 cm/sec . Normal renal veins bilat. Interpretation Summary There is no evidence of hemodynamically significant renal artery stenosis on either side. Ordering Physician: Nestor Do Performed By: Rolly Liz RVT
== END ==
PROVIDERS: PCP Internal Medicine; Referring Provider Internal Medicine Cardiovascular Disease; Visit Provider Internal Medicine Cardiovascular Disease
DX: I10 Essential (primary) hypertension (principal); E66.9 Obesity, unspecified
CPT/HCPCS: 93975

== ENCOUNTER → 2019-08-02 06:38 | Outpatient (CLI) | payer MEDICARE, OTHER, SELFPAY ==
[2019-07-14 11:03] VITALS: BMI 43.7
--- NOTE | 2019-08-02 06:40 | ECHOD_ITS ---
Reason For Study: CHEST PAIN Procedure This was a 2D Doppler, Color Flow transthoracic echocardiogram. The study was technically difficult. PT could not tolerate anything touching her skin. Exam performed in department. Left Ventricle Normal LV size. Left ventricular systolic function is normal. The estimated ejection fraction is 65 %. There is evidence of diastolic dysfunction. No regional wall motion abnormalities noted. Right Ventricle Normal RV size. Normal systolic function. Atria The left atrium is mildly enlarged. The right atrium is mildly enlarged. No doppler evidence for ASD. Mitral Valve There is no mitral annular calcification. Normal mitral valve. Trivial mitral valve insufficiency. Tricuspid Valve Normal tricuspid valve. Trivial tricuspid valve insufficiency. Unable to estimate RV systolic pressure/pulmonary artery pressure due to technically difficult study. Aortic Valve Trisinus/trileaflet aortic valve. Normal aortic valve. Pulmonic Valve The pulmonic valve is not well visualized. Trivial pulmonic valve insufficiency. Great Vessels Normal sized aortic root. Pericardium/Pleural No pericardial effusion. MMode/2D Measurements & Calculations LVIDd: 5.2 cm IVSd: 0.85 cm Ao root diam: 3.3 cm LVIDs: 3.3 cm LVPWd: 0.87 cm RVDd: 3.3 cm FS: 37.1 % LAV(MOD-bp): 83.7 ml LA A4 area: 24.3 cm2 LA dimension(2D): 3.8 cm LAV(MOD-bp) Indexed: 39.8 ml/m2 LAV(MOD-sp2): 78.5 ml LAV(MOD-sp4): 78.4 ml RA A4 area: 21.1 cm2 Time Measurements MV dec time: 0.23 sec Doppler Measurements & Calculations MV E max shaquille: 78.8 cm/sec Lat Peak E' Shaquille: 9.8 cm/sec Med Peak E' Shaquille: 5.1 cm/sec MV A max shaquille: 93.8 cm/sec E/E' lat: 8.1 E/E' med: 15.6 MV E/A: 0.84 Ao V2 max: 187.6 cm/sec LV V1 max: 134.7 cm/sec PA V2 max: 115.9 cm/sec Ao max P.1 mmHg LV V1 max P.3 mmHg Ao V2 mean: 131.4 cm/sec LV V1 mean P.1 mmHg Ao mean P.7 mmHg LV V1 mean: 97.4 cm/sec Ao V2 VTI: 37.5 cm LV V1 VTI: 28.0 cm Interpretation Summary The study was technically difficult. Left ventricular systolic function is normal. The estimated ejection fraction is 65 %. The left atrium is mildly enlarged. The right atrium is mildly enlarged. Trivial mitral valve insufficiency. Trivial tricuspid valve insufficiency. Trivial pulmonic valve insufficiency. Unable to estimate RV systolic pressure/pulmonary artery pressure due to technically difficult study. There is evidence of diastolic dysfunction. Ordering Physician: Nestor Do Referring Physician: Beryl Keane Performed By: Nidia Dickey, BANDARCS, RVT
--- NOTE | 2019-08-02 09:33 | STRESSREP_ITS ---
Stress Test Report Date: 08-02-2019 Procedure: Pharmacologic stress nuclear imaging study Indications: Chest pain Consent: Per the patient Procedure: The patient underwent pharmacologic (Regadenoson) evaluation with a peak heart rate of 103 beats per minute (67 %predicted maximal heart rate) and a peak blood pressure of 140/78 mmHg. The baseline ECG demonstrated normal sinus rhythm. The peak pharmacologic ECG demonstrated no obvious ECG changes. [There were no cardiac dysrhythmias pretest, during pharmacologic infusion, or recovery]. [There was no complaint of chest discomfort during pharmacologic infusion or recovery]. The examination was discontinued secondary to completion of protocol. Impression: 1. Pharmacologic (Regadenoson) evaluation 2. Peak pharmacologic ECG with no obvious ECG changes. 3. [There were no cardiac dysrhythmias pretest, during pharmacologic infusion, or recovery]. 4. Nuclear images pending Myocardial perfusion imaging study: Technique: The patient was injected with 14.0 millicuries of technetium 99m Cardiolite and subsequently rest SPECT Cardiolite nuclear imaging was obtained in the horizontal long, vertical long, and short axis views. The patient underwent pharmacologic (Regadenoson) evaluation with a peak heart rate of 103 beats per minute (67 % percent predicted maximal heart rate) and a peak blood pressure of 140/78 mmHg. The patient was injected with 44.0 millicuries of technetium 99m Cardiolite and subsequently stress SPECT Cardiolite nuclear imaging was obtained in the horizontal long, vertical long, and short axis views. A gated Cardiolite study at peak stress was obtained. Interpretation: Rest and stress SPECT Cardiolite nuclear imaging status post realignment, normalization, and attenuation correction demonstrate at rest a small area of subtle diminished tracer uptake near the distal anterior segments which status post stress appears to improve/normalize. There are similar type findings on the resting and stress polar map images. [There is end systolic thickening and brightening]. [The gated Cardiolite study demonstrates myocardial thickening and inward wall motion]. The reported LVEF is 68 %. Impression: 1. Rest and stress myocardial nuclear imaging demonstrate myocardial perfusion changes appearing compatible with the effects of shifting soft tissue attenua tion/artifact being more prominent at rest as opposed to stress with no myocardial perfusion changes considered diagnostic for associated stress-induced myocardial ischemia. 2. The gated Cardiolite study reports an LVEF of 68 %. This note was generated with Dragon dictation software. It may contain incorrect words, spelling, and punctuation that were not noted in checking the note before signing.
== END ==
PROVIDERS: PCP Internal Medicine; Referring Provider Internal Medicine Cardiovascular Disease; Visit Provider Internal Medicine Cardiovascular Disease
DX: R07.9 Chest pain, unspecified (principal); I10 Essential (primary) hypertension; E66.9 Obesity, unspecified
CPT/HCPCS: 78452; 93017; 93306; A9500; A4216; J2785

== ENCOUNTER → 2020-09-13 15:15 | Outpatient (CLI) | payer MEDICARE, OTHER, SELFPAY ==
[2019-11-04 11:08] VITALS: BMI 41.8
--- NOTE | 2020-09-13 15:18 | VDLE_ITS ---
Reason For Study: pain RIGHT GSV is normal. CFV is compressible, spontaneous, phasic, competent and demonstrates normal augmentation. FV is compressible, spontaneous, phasic, competent and demonstrates normal augmentation. POP V is compressible, spontaneous, phasic, competent and demonstrates normal augmentation. T/P Trunk is compressible. PTV is compressible. RT PerV is compressible. Procedure This is a venous duplex using B-mode, color flow and spectral Doppler. Exam performed in department. The exam was abbreviated due to the COVID 19 protocol. The exam was diagnostic. A preliminary report was called and/or faxed to Dr. Keane. VL/Venous Duplex US, Unilateral Interpretation Summary Deep veins of the right lower extremity are patent and compressible segmentally . There is no evidence of right lower extremity deep vein thrombosis. Valvular competence radha ears intact within the proximal deep venous system on the right . The right great saphenous vein a ppears patent and compressible segmentally. Ordering Physician: Beryl Keane Performed By: Rolly Liz RVT
== END ==
PROVIDERS: PCP Internal Medicine; Referring Provider Internal Medicine; Visit Provider Internal Medicine
DX: M79.661 Pain in right lower leg (principal)
CPT/HCPCS: 93971

== ENCOUNTER 2021-06-20 09:21 | Outpatient (CLI) | payer MEDICARE, OTHER, SELFPAY ==
--- NOTE | 2021-06-20 09:32 | BD_ITS ---
STUDY: DUAL ENERGY X-RAY ABSORPTIOMETRY / DXA REASON FOR EXAM: Female, 71 years old. [id number] TECHNIQUE: Bone Mineral Density (BMD) measurements of lumbar spine and bilateral hips were obtained. COMPARISON: Comparison is made with prior study dated 04/21/2019. FINDINGS: Lumbar Spine (L1-L4): g/cm2 (1.033) / T-score (-0.6) / Z-score (1.6) Findings are suggestive of normal bone density with a low fracture risk. Left Femur Total: g/cm2 (1.029) / T-score (0.7) / Z-score (2.2) Left Femoral Neck: g/cm2 (0.735) / T-score (-1.0) / Z-score (0.8) Right Femur Total: g/cm2 (0.999) / T-score (0.5) / Z-score (2.0) Right Femoral Neck: g/cm2 (0.692) / T-score (-1.4) / Z-score (0.4) The T-Scores on the most recent prior examination were: Lumbar Spine (L1-L4): There has been improvement of bone density since the previous examination. Left Femur Total: which represents an improvement of 6.3%. Right Femur Total: which represents an improvement of 2.8%. BD/Dexa Bone Density Study IMPRESSION: The patient is considered osteopenic as outlined below according to World Rony Organization (WHO) criteria with a low fracture risk. There has been improvement of bone density since the previous examination. Reference Information: The T-score is the number of standard deviations above or below the standard which is normal for young adults at their peak bone mineral density. The World Health Organization (WHO) interprets the T-scores as follows: Above -1 Normal bone density Between -1 and -2.5 Osteopenia Equal to / or below -2.5 Osteoporosis As a practical clinical guideline, osteopenia may be graded as follows: Mild -1 through -1.5 Moderate -1.6 through -2.0 Severe -2.1 through -2.4 The Z-score is the number of standard deviations above or below age-matched controls. A Z-score of less than -1.5 would be considered abnormal. References: 1. NIH Osteoporosis and Related Bone Diseases www osteo.org 2. International Society for Clinical Densitometry www iscd.org 3. National Osteoporosis Foundation www nof.org Electronically Signed: Mario Randolph MD at 15:30 EDT ,
== END 2021-06-20 23:59 | disposition home or self-care (01) ==
LOC: OPBD 09:22
PROVIDERS: PCP Internal Medicine; Visit Provider Internal Medicine
DX: Z78.0 Asymptomatic menopausal state (principal)
CPT/HCPCS: 77080

== ENCOUNTER → 2022-10-01 | Outpatient (CLI) | payer MEDICARE, OTHER, SELFPAY ==
--- NOTE | 2022-10-01 07:18 | US_ITS ---
STUDY: ABDOMINAL ULTRASOUND - RIGHT UPPER QUADRANT REASON FOR VISIT: Female, 72 years old RUQ pain TECHNIQUE: Ultrasound evaluation of the right upper quadrant was performed with real-time and static hernandez-scale imaging. TECHNICAL QUALITY: Adequate. COMPARISON: None. FINDINGS: Liver: The liver is enlarged and measures 22.3 cm. There is increased echogenicity consistent with fatty infiltration. The bile ducts are within normal limits. There is hepatic color flow. The direction of portal flow is hepatopetal. There is no demonstrated mass lesion. Focal fatty sparing is seen in the region of the gallbladder fossa. Gallbladder: Normal distended gallbladder. The gallbladder wall measures 2.2 mm. There is a negative sonographic Orlando''s sign. There is no pericholecystic fluid. There are no gallstones. Common Bile Duct (C.B.D.): The common bile duct measures 3.0 mm. Pancreas: Normal size of the head, body and tail of the pancreas. There is normal echogenicity of the pancreas. There is no demonstrated pancreatic mass or cyst. Right Kidney: Normal size of the right kidney. The right kidney measures 14.2 cm x 7.1 cm x 4 cm. Normal renal cortex. The right cortex measures 1.7 cm. There is a 7.9 cm x 8.3 cm x 6.4 cm right renal cyst. There is no right hydronephrosis. US/Abdomen Limited IMPRESSION: Hepatomegaly and fatty infiltration of the liver with focal fatty sparing in the region of the gallbladder fossa. 7.9 cm x 8.3 cm x 6.4 cm right renal cyst. Electronically Signed: Mario Randolph MD at 8:48 EDT ,
== END | disposition home or self-care (01) ==
LOC: US 07:17
PROVIDERS: PCP Internal Medicine; Referring Provider Internal Medicine; Visit Provider Internal Medicine
DX: R10.11 Right upper quadrant pain (principal)
CPT/HCPCS: 76705

== ENCOUNTER → 2022-10-29 | Outpatient (CLI) | payer MEDICARE, OTHER, SELFPAY ==
--- NOTE | 2022-10-29 07:52 | CT_ITS ---
HISTORY: right upper quadrant pain. TECHNIQUE: Helically acquired images were obtained of the abdomen and pelvis after the intravenous administration of 100 mL Isovue 300. Oral contrast also administered. A radiation dose optimization technique was used for this scan. 456 images. COMPARISON: US 10/01/2022. FINDINGS: LOWER CHEST: Lung bases clear. BOWEL: Bowel including appendix nondilated. Colonic diverticulosis without focal inflammatory change observed. PERITONEUM: No significant ascites. LIVER: 18 cm in length. Fatty infiltration. 7 mm cyst in the left lobe. GALLBLADDER/BILIARY TREE: Gallbladder present. SPLEEN/PANCREAS/ADRENAL GLANDS: Homogeneous and nonenlarged. KIDNEYS: 7 x 8.5 cm cyst in the right kidney. 6 mm fat-containing lesion in the left kidney. No hydronephrosis. VESSELS: No abdominal aortic aneurysm. Mild atherosclerosis. PELVIC ORGANS: 4.8 cm and 5.2 cm round uterine masses. ABDOMINAL WALL: Tiny fat containing umbilical hernia. BONES: Vacuum disc phenomenon, degenerative endplate change, and mild anterolisthesis of L4-5. CT/Abdomen/Pelvis WITH Contrast IMPRESSION: Hepatic steatosis with hepatomegaly. Small cyst in the left hepatic lobe. 8.5 cm right renal cyst. 6 mm left renal angiomyolipoma. Colonic diverticulosis without acute diverticulitis. Leiomyomatous uterus. Electronically Signed: Preeti Villasenor MD at 9:15 EDT ,
== END | disposition home or self-care (01) ==
LOC: CT 07:51
PROVIDERS: PCP Internal Medicine; Referring Provider Internal Medicine; Visit Provider Internal Medicine
DX: R10.11 Right upper quadrant pain (principal)
CPT/HCPCS: 74177; Q9967

== ENCOUNTER → 2023-10-02 | Outpatient (CLI) | payer MEDICARE, SELFPAY ==
[2023-10-02 10:34] LABS: Absolute Lymphocyte Count 1.73 X10^3/uL (0.83-4.51); Absolute Neutrophil Count 4.4 X10^3/uL (2.0-7.7); Basophil# 0.03 X10^3/uL; Basophil% 0.4 % (0-1); Hemoglobin 13.8 g/dL (12.0-15.0); Lymphocyte # 1.73 X10^3/ul (0.83-4.51); Lymphocyte % 25.4 % (19-41); Mean Corp Hgb Conc 31.4 g/dL (32-36); Mean Corpuscular Volume 89.2 fL (81-99); Mean Platelet Vol. 9.9 fl (6.2-12.0); Monocyte# 0.58 X10^3/uL; Monocyte% 8.5 % (0-10); NRBC Flagged by Analyzer 0 % (0-5); Neutrophil # 4.44 X10^3/uL (2.7-7.7); Neutrophil % 65.4 % (47-70); Platelet Count 357 K/mm3 (150-450); RBC Distribution Width CV 13.4 % (11.6-14.6); RBC Distribution Width SD 43.9 fl (35.1-43.9); Red Blood Count 4.93 M/mm3 (4.2-5.4); White Blood Count 6.8 K/mm3 (4.4-11.0)
[2023-10-02 10:46] LABS: AST(SGOT) 25 U/L (15-37); Alanine Aminotransfer ALT/SGPT 33 U/L (13-56); Albumin, Serum 3.7 g/dL (3.2-5.0); Alkaline Phosphatase 101 U/L (45-117); Amylase 42 U/L (25-115); Anion Gap 5 (5-15); BUN 13 mg/dL (7-18); BUN/Creat Ratio 16.4 RATIO (10-20); Bilirubin, Direct 0.11 mg/dL (0.00-0.30); Calcium,Total 9.4 mg/dL (8.5-10.1); Chloride 106 mmol/L (98-107); Creatinine, Serum 0.79 mg/dL (0.55-1.02); EST Glomerular Filtration Rate 76 mL/min (>60); Est Glom Filt Rate - Afr Amer 91 mL/min (>60); Globulin 3.7 g/dL (2.2-4.2); Glucose 124 mg/dL (74-106); Lipase 30 U/L (13-75); Potassium 4.5 mmol/L (3.5-5.1); Protein, Total 7.4 g/dL (6.4-8.2); Sodium Level 141 mmol/L (136-145)
== END | disposition home or self-care (01) ==
PROVIDERS: PCP Internal Medicine; Referring Provider Nurse Practitioner Family; Visit Provider Nurse Practitioner Family
DX: R10.9 Unspecified abdominal pain (principal)
CPT/HCPCS: 80048; 80076; 82150; 83690; 85025

== ENCOUNTER → 2024-02-29 | Outpatient (CLI) | payer MEDICARE, SELFPAY ==
--- NOTE | 2024-02-29 16:02 | US_ITS ---
STUDY: ULTRASOUND OF THE FEMALE PELVIS - LIMITED REASON FOR EXAM: Female, 73 years old ULTRASOUND, PELVIS, COMPLETE -- Vaginal bleeding, abnormal TECHNIQUE: Transabdominal TECHNICAL QUALITY: Adequate. COMPARISON: None. FINDINGS: The uterus is anteverted and is in a midline position. The uterus measures 10.0 x 10.3 x 6.9 cm. Normal uterine cervix. The endometrium measures 8 mm in thickness, and is fluid distended. There is no demonstrated endometrial mass. 5.4 cm exophytic hypoechoic mass in the anterior fundus the uterus consistent with a subserosal fibroid. Another 5.1 cm round hypoechoic mass in the fundus the uterus consistent with an intramural fibroid. The ovaries are not visualized.. There is no fluid in the cul-de-sac. US/Pelvic (Non ) IMPRESSION: Enlarged fibroid uterus. Some endometrial fluid. Nonvisualization ovaries. Electronically Signed: Jimenez Iniguez MD at 13:43 EST ,
== END | disposition home or self-care (01) ==
LOC: US 16:01
PROVIDERS: PCP Internal Medicine; Referring Provider Internal Medicine; Visit Provider Internal Medicine
DX: N93.9 Abnormal uterine and vaginal bleeding, unspecified (principal)
CPT/HCPCS: 76856

== ENCOUNTER 2024-04-08 12:30 | Outpatient (RCR) | payer MEDICARE, SELFPAY ==
--- NOTE | 2024-02-03 11:57 | HP.PTEVAL_ITS ---
Patient's Visit Information Visit Information Visit Information: CAMILLE BERNABE is a 73 year old F referred to Physical Therapy by Dr. Beryl Keane DO with a diagnosis of R knee pain, R shoulder pain. Date of Evaluation: 02/03/24 Physical Therapist: Kimani Wills, DPT, OCS, CSCS Visit Plan Frequency: 2x /Week Duration: 4-6 Weeks Plan: 2x/week for 4-6 weeks sstarting aquatic therapy for R shoulder strength and pec stretch R hip and knee strength Progressing to general overall ex in pool and via HEP to complement. Consider need for US, TENS, Manual after pool if still inflamed. Subjective Subjective: R shoulder has been hurting down into arm. A month ago it started insidiously. Has h/o chronic neck funniness. Pain is anterior lateral and worse with reaching out to side and rotating out. No numbness r tingling, maybe a little in 2nd digit on R intermittently. Sleep is interrupted with pain in R shoulder and sleeps all over starting on R side. Pulling covers with R hurts and then it aggravated. Activities: avoids L side, carefull with use of R UE. Dressing is not a problem. Basic ADLs are getting done. Reaching behind is not a problem. R knee can also hurt, treating by chiropractor. Knee feels good this week. 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 No regular ex. Spends day walking for chores and worsens knee. Has to be careful with chores. Reads. Pain R shoulder: Pain Intensity (Out of 10): 2 Pain Intensity Range: 0 and 8 Objective Objective: Walks into PT slowly but I without antalgia today. [employer] chair I and bed I. cervical aROM is 40 ext and 45 rotation. Some tenderness R side UT. UE AROM Full and pain with end range flexion and er. IR is OK today. reflexes 2/3 patella and achilles and bi and tri sensation UE WNL to gross light touch in UE and LE. stregth R shoulder er 4- and pianful, L 4, IR 4 B no pain, flexion 3+ R and painful, L is 4/5, empty can and speeds B positive slightly on R along with + scour and HK R. strength LE hips 3+ rotations and abd and ext B, no pain. knee flex/ext 4/5 ankle 4+ No myotomal abnormalities. - slump and SLR. Max tender R medial joint line into pes area. Balance/Special Test Scores Quick DASH Score: 43.1800 Goals Goal 1:: Pain in R shoulder and knee 90% improved 1/10 at worst Goal Time Frame: 4-6 Weeks Goal 2:: I management of HEP to improve health of tissue Goal Time Frame: 4-6 Weeks Goal 3:: quickdash score 15 or less Goal Time Frame: 4-6 Weeks Rehabilitation Potential Physical Therapy Diagnosis: pain and weakness limiting health and comfortable funciton Rehabilitation Potential: Good Anticipated Interventions Patient/Client Instruction: Educate patient on: Condition and Risk Factors For the Purpose of:: To decrease pain, To improve nutrient delivery to tissue, To improve muscle performance and motor function and To increase tolerance to activity/condition/position Therapeutic Exercise to Include: Strength training, Postural training, In an aquatic setting, Passive ROM and Active ROM For the Purpose of:: To decrease pain, To improve nutrient delivery to tissue, To improve muscle performance and motor function, To improve ability of physical actions for home/community/work/leisure and To improve gait and locomotor functions Text: Thank you for the opportunity to evaluate your patient. For Medicare and Medicare HMO plans, please review the plan of care and approve it. It will need to be FAXED BACK to us at [phone] for Medicare purposes. For Medicare only, by signing this I certify the plan of care. Please let me know if there are questions or concerns regarding this plan of care. Physician Signature: Date:
--- NOTE | 2024-04-08 13:25 | HP.PTDCSUM_ITS ---
Discharge Summary D/C summary: It has been my pleasure to treat CAMILLE BERNABE referred by Dr. Beryl Keane DO, with the diagnosis of R knee pain, R shoulder pain for a total of 8 visit(s). Discharge Date: 04/08/24 Please see the following information for a summary of their discharge status. Subjective Subjective: A little better in knee and shoulder. Weather changes really make her worse. Exercises in pool seem to help along with HEP to strengthen. No priya n in knee or arm prior to weather change today. Pain in shoulder today adn knee 5/10 but better after water workout to 3/10. Sleeping btter in the last week. HEP: irregulalry. they wear her out and water is better. End of April. Pain R shoulder: Pain Intensity (Out of 10): 3 R knee: Pain Intensity (Out of 10): 3 Overall Improvement % Improvement: 50 Objective Objective/Function: Full aROM B shoulders today rotation adn elevation. No pain increases. Weakness persists in flexion at 4- with some transient pain on R. Knee aROM WFL adn some mild tihgtness posteriorly but no increased pain with ROM adn 4/5 streength LE. Walks I without AD without gait deviations today. Goals Goal 1:: Pain in R shoulder and knee 90% improved 1/10 at worst Goal Progress: Progressing 50% Goal 2:: I management of HEP to improve health of tissue Goal Progress: Goal Met Goal 3:: quickdash score 15 or less Goal Progress: Goal Met Plan Plan: d/c to HEP, pt choice vs continued I in pool D/C Information d/c sentence: If there are questions or concerns regarding this patient's physical therapy, please feel free to call me at [phone]. Thank you for the referral of this patient. Sincerely, Kimani Wills, DPT, OCS, CSCS Balance/Gait/Functional tests Balance/Special Test Scores Quick DASH Score: 6.8175 Improvement % Improvement: 50
== END 2024-04-08 19:00 | disposition home or self-care (01) ==
LOC: PT 12:30
PROVIDERS: PCP Internal Medicine; Referring Provider Internal Medicine; Visit Provider Internal Medicine
DX: M25.511 Pain in right shoulder (principal); M17.11 Unilateral primary osteoarthritis, right knee; M25.561 Pain in right knee
CPT/HCPCS: 97113; 97161; 97164

== ENCOUNTER → 2024-04-25 | Outpatient (CLI) | payer MEDICARE, SELFPAY ==
--- NOTE | 2024-04-25 11:30 | CER_PTH ---
PATIENT: CAMILLE BERNABE LOC: [facility] U#:[id number] AGE/SX: 73/F ROOM: RE04/25/[address]: Dr. Snehal Lozano DO : 1950 BED: DIS: 04/25/2024 SPEC #: [id number] RECD: 04/25/24 17:10 STATUS: OG ROGELIO #: [id number] NGOZI: 04/25/24 11:[address]: Snehal Lozano DEPT: SURGICAL PATHOLOGY RECD BY: Marcy Lind ENTERED: 04/26/24 07:30 SP TYPE: CERV OTHR DR: Dr. Beryl Keane DO Tissues: A - Uterine cervix, NOS B - Endometrium, NOS Procedures: Surgery Specimen Level IV HEADER OPERATION: Polypectomy PRE-OP DIAGNOSIS: Cervical polyp TISSUE SUBMITTED: A- Cervical polyp, B- Endometrial lining MICROSCOPIC DIAGNOSIS A. Cervical polyp, polypectomy: Fragments of inflamed benign endometrial polyp with focal area of infarction. See comment. B. Endometrial biopsy: Strips of benign endometrial epithelium. Polypoid fragments of endometrial tissue may represent fragments of endometrial polyp with disordered proliferative endometrium. See comment. JAYLYNSonny 04/27/2024 COMMENT A. The specimen shows disordered proliferative endometrium. Correlation with clinical findings and appropriate follow up are necessary. MICROSCOPIC DESCRIPTION Slides are reviewed. GROSS DESCRIPTION A. Received in fixative is one container labeled with the patient's name and designated Cervical polyp. The specimen consists of multiple irregular fragments of myers-pink polypoid tissue that in aggregate measure 1.5 x 1.2 x 0.3 cm. The specimen is totally submitted in one cassette. B. Received in fixative is one container labeled with the patient's name and designated Endometrial biopsy. The specimen consists of multiple irregular fragments of myers soft tissue that in aggregate measure 1 x 1 x 0.1 cm. The specimen is totally submitted in one cassette. 04/26/2024 TC:5 CPT:23014c0
== END | disposition home or self-care (01) ==
LOC: LABSPEC 15:16
PROVIDERS: PCP Internal Medicine; Referring Provider Obstetrics & Gynecology; Visit Provider Obstetrics & Gynecology
DX: N84.1 Polyp of cervix uteri (principal); N93.9 Abnormal uterine and vaginal bleeding, unspecified
CPT/HCPCS: 88305

== ENCOUNTER → 2024-05-30 | Outpatient (CLI) | payer MEDICARE, SELFPAY ==
--- NOTE | 2024-05-30 13:43 | ECHOD_ITS ---
Reason For Study Reason For Study: Dyspnea Procedure This was a 2D Doppler, Color Flow transthoracic echocardiogram. The study was technically difficult. Exam performed in department. Left Ventricle Normal LV size. Left ventricular systolic function is normal. The left ventricular ejection fraction is 60 %. Stage 1 diastolic dysfunction. No regional wall motion abnormalities noted. Right Ventricle Normal RV size. Normal systolic function. Atria Normal left atrium. Normal right atrium. Mitral Valve There is mild mitral annular calcification. Tricuspid Valve Normal tricuspid valve. Aortic Valve Trisinus/trileaflet aortic valve. Pulmonic Valve The pulmonic valve is not well visualized. Great Vessels Normal aortic root. The pulmonary artery is normal size. Normal inferior vena cava. Pericardium/Pleural No pericardial effusion. MMode/2D Measurements & Calculations LVIDd: 4.9 cm IVSd: 1.1 cm Ao root diam: 2.9 cm LVIDs: 3.2 cm LVPWd: 0.87 cm RVDd: 3.6 cm FS: 35.9 % LAV(MOD-bp): 57.2 ml LVAd ap4: 27.7 cm2 SV(MOD-sp4): 49.4 ml LAV(MOD-bp) Indexed: 27.4 ml/m2 LVLd ap4: 7.3 cm SI(MOD-sp4): 23.6 ml/m2 LAV(MOD-sp2): 66.0 ml EDV(MOD-sp4): 83.7 ml LAV(MOD-sp4): 46.4 ml EDV(sp4-el): 89.3 ml LVAs ap4: 15.0 cm2 LVLs ap4: 5.8 cm ESV(MOD-sp4): 34.4 ml ESV(sp4-el): 32.7 ml EF(MOD-sp4): 59.0 % EF(sp4-el): 63.4 % SV(sp4-el): 56.7 ml LA A4 area: 18.5 cm2 LA dimension(2D): 4.7 cm RA A4 area: 13.9 cm2 TAPSE: 1.8 cm Time Measurements MV dec time: 0.26 sec Doppler Measurements & Calculations MV E max shaquille: 60.6 cm/sec Lat Peak E' Shaquille: 9.8 cm/sec Med Peak E' Shaquille: 5.6 cm/sec MV A max shaquille: 86.6 cm/sec E/E' lat: 6.2 E/E' med: 10.8 MV E/A: 0.70 MV V2 max: 102.9 cm/sec MV P1/2t max shaquille: 68.9 cm/sec Ao V2 max: 146.0 cm/sec MV max P.2 mmHg MV P1/2t: 87.7 msec Ao max P.5 mmHg MV V2 mean: 56.5 cm/sec Ao V2 mean: 94.2 cm/sec MV mean P.4 mmHg MV dec slope: 230.1 cm/sec2 Ao mean P.1 mmHg MV V2 VTI: 21.2 cm MVA(P1/2t): 2.5 cm2 Ao V2 VTI: 29.5 cm AV (velocity ratio): 0.81 LV V1 max: 117.0 cm/sec PA V2 max: 107.7 cm/sec LV V1 max P.5 mmHg LV V1 mean P.7 mmHg LV V1 mean: 76.5 cm/sec LV V1 VTI: 23.9 cm ECHO/Echo Complete Interpretation Summary Normal LV size. Left ventricular systolic function is normal. The left ventricular ejection fraction is 60 %. There is mild mitral annular calcification. Stage 1 diastolic dysfunction. Ordering Physician: Beryl Keane Referring Physician: Beryl Keane Performed By: Ted Otero RCS
== END | disposition home or self-care (01) ==
PROVIDERS: PCP Internal Medicine; Referring Provider Internal Medicine; Visit Provider Internal Medicine
DX: R09.89 Other specified symptoms and signs involving the circulatory and respiratory systems (principal); R06.00 Dyspnea, unspecified
CPT/HCPCS: 93306

== ENCOUNTER 2024-06-21 11:07 | Day surgery (SDC) | payer MEDICARE, SELFPAY ==
--- NOTE | 2024-06-14 09:56 | EKG12_ITS ---
Test Reason : PREOP Blood Pressure : */* mmHG Vent. Rate : 86 BPM Atrial Rate : 86 BPM P-R Int : 156 ms QRS Dur : 84 ms QT Int : 408 ms P-R-T Axes : 63 45 64 degrees QTcB Int : 488 ms Normal sinus rhythm Minor ST changes Borderline Confirmed by Link Jeffrey ([id number]), copy editor RITA EVERETT ([id number]) on 06/15/2024 10:04:47 AM Referred By: Snehal Lozano Confirmed By: Link Jeffrey
[2024-06-14 10:33] LABS: Hematocrit 42.5 % (37-47); Hemoglobin 13.8 g/dL (12.0-15.0); Mean Corp Hgb Conc 32.5 g/dL (32-36); Mean Corpuscular Hgb 28.6 pg (27.0-32.0); Mean Corpuscular Volume 88.2 fL (81-99); Mean Platelet Vol. 9.6 fl (6.2-12.0); Platelet Count 330 K/mm3 (150-450); RBC Distribution Width SD 45.1 fl (35.1-43.9); Red Blood Count 4.82 M/mm3 (4.2-5.4); White Blood Count 6.5 K/mm3 (4.4-11.0)
[2024-06-14 11:20] LABS: ALB/GLOB Ratio 1.3 RATIO (0.9-2.4); AST(SGOT) 22 U/L (<=31); Alanine Aminotransfer ALT/SGPT 16 U/L (<=34); Albumin, Serum 4.2 g/dL (3.4-4.8); Alkaline Phosphatase 106 U/L (35-104); Anion Gap 11 (5-15); BUN 14 mg/dL (4-19); BUN/Creat Ratio 18.4 RATIO (10-20); Calcium,Total 9.5 mg/dL (7.6-11.0); Carbon Dioxide 26.8 mmol/L (21.0-32.0); Chloride 101 mmol/L (98-108); Creatinine, Serum 0.73 mg/dL (0.70-1.20); EST Glomerular Filtration Rate 86 (>60); Globulin 3.1 g/dL (2.2-4.2); Glucose 143 mg/dL (70-99); Potassium 4.3 mmol/L (3.3-5.1); Protein, Total 7.3 g/dL (5.9-8.4); Sodium Level 139 mmol/L (133-145); Total Bilirubin 0.25 mg/dL (0.00-1.30)
--- NOTE | 2024-06-14 15:18 | PAT.ANE_ITS ---
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 When Was Last Pacemaker Check QUESTION #4 FULL TEXT: You/Your Family Experience fever (hyperthermia) with Anesthesia Last Oral Intake Last Oral intake: Last Oral Intake NPO since Meds taken in AM with sips of water? 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 Female Yes 06/09/24 11:32 HX of Motion Sickness No 06/09/24 11:32 HX of N/V After Surgery No 06/09/24 11:32 Non-Smoker Yes 06/09/24 11:32 Duration of Surgery greater No 06/09/24 11:32 than 60 minutes Number of Risk Factors 2 06/09/24 11:32 PONV Score Moderate Risk 06/09/24 11:32 Height & Weight Height & Weight: Anesthesia: Height & Weight Height 5 ft 3 in 04/25/24 11:09 Respiratory Assessment Respiratory Assessment - straw hat brim cutter operator: Respiratory Tract Infection Hx - 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 Has anyone observed you stop No 06/09/24 11:32 breathing during sleep? STOP Results Negative 06/09/24 11:32 QUESTION #5 FULL TEXT : Do you snore loudly (louder than talking or can be heard through closed doors)? 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 Specify any problems Hx of Preganancy in last 3 N/A 06/09/24 11:32 Months Nurse Filling Out Transfusion NBUCHER 06/09/24 11:32 & Questions: Date: 06/09/24 06/09/24 11:32 Time: 11:35 06/09/24 11:32 Patient unable to answer at this time (ie. 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 Snehal Lozano, DO) Wears glasses History of steroid therapy Thyroid disease Arthritis Non-smoker Shortness of breath on exertion Cardiology follow-up encounter History of stress test History of echocardiogram Ingrown toenail Hypothyroidism Essential hypertension Thoracic back pain Obesity HTN (hypertension) Chest pain Vitamin deficiency Back problem Home Medications ?Medication ?Instructions ?Recorded ?Last Taken ?Type Zinc Liver Chelate 2 tab PO TID 07/14/19 Unknow n History catalyn 1 tab PO TID 07/14/19 Unknow n History gotu cheli (Centella asiatica) 475 475 mg PO DAILY 04/03 06/24 Unknown History mg capsule medium chain triglycerides 14 15 ml PO QDAY 04/25/24 U nknown History gram-120 kcal/15 mL oral oil (MCT Oil) omega [id number] oil 600 1 cap PO DAILY Unknown History mg-20 mg-500 mcg-800 mcg capsule Allergy/AdvReac Type Severity Reaction Status Date / Time latex Allergy Intermediate Rash Verified 06/09/24 11:30 Family History Mother Anemia Arthritis Breast cancer CVA (cerebral vascular accident) Father Myocardial infarction Heart disease Grandmother Liver disease Son Anxiety Surgical History (Updated 06/09/24 @ 11:41 by Sera Perez) History of toe surgery (~1964) History of removal of cyst Social History Smoking Status: Never smoker alcohol intake: never substance use type: does not use caffeine: No what type of physical activity do you participate in: none seatbelt use: always do you feel safe at home: Yes additional social history: - Ramu (chiropractor) Audit: Pertinent Findings Pertinent Findings EKG Perinent findings: July 14, 2019. Sinus rhythm. Stress test pertinent findings: August 02, 2019. Ejection fraction 68%. No ischemia. Echo (EF%) pertinent findings: May 30, 2024. Ejection fraction 60%. No aortic stenosis is noted. Consult pertinent findings: March 08, 2021. Dr. Do. 1. Hypertension?chronic-doing well. Patient is to continue current medications. Follow-up as needed. Recommendation Anesthesia Recommendation Anesthesia recommendation: OPTIMIZED for anesthesia
[2024-06-21] VITALS (11 sets, daily range): BP systolic 81–138; BP diastolic 41–75; PULSE 57–79; RESP 14–18; TEMP 35.8–36.1; O2SAT 92–98; BMI 44.2
--- NOTE | 2024-06-21 11:43 | PCM.HP.BLA ---
History and Physical Date of Admission: 06/21/24 Intake Vital Signs 04/25/2510:09 06/09/2508:54 Height 5 ft 3 in 5 ft 3 in Weight: 246 lb 4 oz 249 lb BMI 43.6 44.1 BP 166/81 H 174/94 H Intake Visit Reasons: D&C polypectomy [employer] Reverser Required: No Is patient in pain?: No Allergies latex Allergy (Intermediate, Verified 06/09/24 11:30) Rash Medications ?Medication ?Instructions ?Recorded ?Confirmed ?Type Zinc Liver Chelate 2 tab PO TID 07/14/19 06/09/24 History catalyn 1 tab PO TID 07/14/19 06/09/24 History gotu cheli (Centella asiatica) 475 475 mg PO DAILY 04/25/24 06/09/24 History mg capsule medium chain triglycerides 14 15 ml PO QDAY 04/25/24 06/09/24 History gram-120 kcal/15 mL oral oil (MCT Oil) omega [id number] oil 600 1 cap PO DAILY 04/25/24 06/09/24 History mg-20 mg-500 mcg-800 mcg capsule Is last menstrual period known: No Post menopausal: Yes Patient : No : No PFSH Medical History (Updated 06/09/24 @ 17:[address] Snehal Lozano, ) Wears glasses History of steroid therapy Thyroid disease Arthritis Non-smoker Shortness of breath on exertion Cardiology follow-up encounter History of stress test History of echocardiogram Ingrown toenail Hypothyroidism Essential hypertension Thoracic back pain Obesity HTN (hypertension) Chest pain Vitamin deficiency Back problem Surgical History (Updated 06/09/24 @ 11:41 by Sera Perez) History of toe surgery (~1964) History of removal of cyst Family History Mother Anemia Arthritis Breast cancer CVA (cerebral vascular accident)Father Myocardial infarction Heart diseaseGrandmother Liver diseaseSon Anxiety Social History Smoking Status: Never smoker alcohol intake: never substance use type: does not use caffeine: No what type of physical activity do you participate in: none seatbelt use: always do you feel safe at home: Yes additional social history: - Ramu (chiropractor) HPI D&C polypectomy Details: CAMILLE BERNABE is a 73 year old who presents for postmenopausal bleeding and pain in hips. She saw her pcp, Dr. Burnham who referred her to us. She states that the spotting started a few months ago and is off and on. She takes multiple OTC supplements, one of which is a protomorphogen blend of tissue from animals that includes organs including the ovaries. Her mother had large fibroids, the size of soccer balls. She wonders if fibroids could be causing the problems. She consents to an endometrial biopsy today. ultrasound in January is as follows: FINDINGS: The uterus is anteverted and is in a midline position. The uterus measures 10.0 x 10.3 x 6.9 cm. Normal uterine cervix. The endometrium measures 8 mm in thickness, and is fluid distended. There is no demonstrated endometrial mass. 5.4 cm exophytic hypoechoic mass in the anterior fundus the uterus consistent with a subserosal fibroid. Another 5.1 cm round hypoechoic mass in the fundus the uterus consistent with an intramural fibroid. The ovaries are not visualized.. There is no fluid in the cul-de-sac. She is scheduled for a hysteroscopy D&C soon. History 9 Elective abortions Hx Para 6 Spontaneous abortions Hx # Term Pregnancies Ectopic pregnancies Hx # Pregnancies Multiple births # of living children ROS Const ROS Unobtainable: All systems reviewed & are unremarkable except as noted in H Resp Resp: Reports system reviewed and no additional complaints, except as documented; Denies cough GI GI: Reports as per HPI Psych Psych: Reports system reviewed and no additional complaints, except as documented Exam Const General: cooperative, healthy appearing, comfortable and no acute distress Resp Effort & Inspection: normal respiratory effort Skin General: no rashes or lesions noted Psych Appearance: grossly normal Speech and Movement: speech and movement normal Coding Level of Care Code Off vis,est,level 4 Diagnoses Postmenopausal bleeding N95.0 Thickened endometrium R93.89 Assessment and Plan Assessment and Plan (1) Postmenopausal bleeding: Status: Acute (2) Thickened endometrium: Status: Acute Plan After discussing the patient's diagnosis and treatment plan options, patient wishes to proceed with surgical management. I have discussed with the patient the risks, benefits, and alternatives of the procedure which include but are not limited to risks of anesthesia, bleeding, infection, possible damage to bowel, bladder, or surrounding vasculature which could lead to additional surgery to evaluate any complications. Patient agrees to procedure and wishes to proceed. ACOG/uptodate references given for additional information regarding procedure. plan for hysteroscopy dilation and curettage.
--- NOTE | 2024-06-21 12:14 | DCINST_ITS ---
Discharge Instructions Diet Discharge Diet: No restrictions DC O2, CPAP, BIPAP needs Home O2 Discharge instructions: No Dressing / Incision Discharge Activity: Return to Normal Activity, May Shower and May Take a Tub Bath (after 1 week) May resume sexual activity in: 1-2 weeks Weight Bearing Status: Weight bearing as tolerated Lifting Restrictions: none Dressing / Incision Call your doctor if you observe: Fever of 101 or Higher, Using more than 1 pad per hour, Shortness of breath and Uncontrolled pain Follow Up Care Please Follow Up With: Snehal Lozano DO When: Call [phone] to schedule appointment. Test Results: Test results from this visit will be discussed in further detail at your follow- up appointment, if applicable. Discharge Plan Admission Primary Reason for Your Visit: hysteroscopy dilation and curettage Attending Provider: Snehal Lozano Primary Care Provider: Beryl Keane Instructions Print Language: [place] Discharge Orders/Prescriptions Prescriptions: New ibuprofen 800 mg tablet 800 mg PO Q8H PRN (Reason: pain) Qty: 30 0RF Continued catalyn 1 tab PO TID Zinc Liver Chelate 2 tab PO TID MCT Oil 14 gram-120 kcal/15 mL oil 15 ml PO QDAY [id number] oil [id number] capsule 1 cap PO DAILY gotu cheli (Centella asiatica) 475 mg capsule 475 mg PO DAILY Other Ambulatory Orders: 12 Lead EKG (Routine) Location: None Selected Ordered By: Dr. Snehal Lozano Referrals / Follow Up: Beryl Keane DO [Primary Care Provider] - Disposition Disposition (needs filled in before D/C Order can be placed): Home, Self Care
--- NOTE | 2024-06-21 12:18 | PRE.ANES_ITS ---
ASA Classification* ASA Classification ASA Classification: 3 Assessment & Plan Anesthesia* Anesthesia Assessment Anesthesia Assessment: Discussed sedation and/or anesthesia options, risks, benefits, and alternatives with patient/parents/legal guardian/POA. Questions invited. The patient/parents/legal guardian/POA seems to understand and agrees to proceed with anesthesia plan. Reviewed the physical assessment, medical history, allergy history and patient home medications list prior to surgery/procedure/anesthetic and documented any changes. Performed airway and anesthesia risk assessments. Anesthesia Type Anesthesia Type: MAC History Source History Obtained from:: Patient and Chart Anesthesia Focused Assessment* Temperature: 96.5 F Pulse Rate: 79 Blood Pressure: 138/75 Respiratory Rate: 18 Pulse Ox: 98 Oxygen Delivery Method: Room Air Airway Assessment Mouth opens: >3 cm Mallampati Score: I Teeth Condition: Caps/Crowns (Patient has couple crowns. They are tight.) and Missing (Patient has 1 missing right upper molar.) Neck Range of motion (ROM): Limited ROM (Slight decrease in extension) Focused Labs Anesthesia Preop lab: CBC WBC 6.5 K/mm3 (4.4-11.0) 06/14/24 10:14 06/14/24 RBC 4.82 M/mm3 (4.2-5.4) 06/14/24 10:06/14/24 Hgb 13.8 g/dL (12.0-15.0) 06/14/24 10:14 06/14/24 Hct 42.5 % (37-47) 06/14/24 10:14 06/14/24 Plt Count 330 K/mm3 (150-450) 06/14/24 10:14 06/14/24 CHEMISTRY Potassium 4.3 mmol/L (3.3-5.1) 06/14/24 10:14 06/14/24 Sodium 139 mmol/L (133-145) 06/14/24 10:06/14/24 BUN 14 mg/dL (4-19) 06/14/24 10:06/14/24 Creatinine 0.73 mg/dL (0.70-1.20) 06/14/24 10:14 06/14/24 Glucose 143 mg/dL (70-99) H 06/14/24 10:14 06/14/24 TSH 3.97 uIU/mL (0.358-3.74) H 09/25/17 05:00 07/09/16 COAG PT 12.5 SECONDS (11.7-14.9) 09/25/17 05:00 Pre-Assessment Diagnosis/Proposed Procedure Planned Operative Procedure(s): HYSTERSCOPY D&C, POLYPECTOMY Anesthesia History 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 When Was Last Pacemaker Check QUESTION #4 FULL TEXT: You/Your Family Experience fever (hyperthermia) with Anesthesia Last Oral Intake Last Oral intake: Last Oral Intake NPO since 10:00 06/21/24 11:45 Meds taken in AM with sips of Yes 06/21/24 11:45 water? 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 Female Yes 06/09/24 11:32 HX of Motion Sickness No 06/09/24 11:32 HX of N/V After Surgery No 06/09/24 11:32 Non-Smoker Yes 06/09/24 11:32 Duration of Surgery greater No 06/09/24 11:32 than 60 minutes Number of Risk Factors 2 06/09/24 11:32 PONV Score Moderate Risk 06/09/24 11:32 Height & Weight Height & Weight: Anesthesia: Height & Weight Height 5 ft 3 in 06/21/24 11:45 Weight: 113.3 kg 06/21/24 11:45 Body Mass Index (BMI) 44.2 06/21/24 11:45 Respiratory Assessment Respiratory Assessment - utility driver: Respiratory Tract Infection Hx - utility driver Hx Respiratory Tract Infection No 06/09/24 11:32 STOP Sleep Apnea STOP Sleep Apnea - utility driver: STOP Sleep Apnea - utility driver Hx Hypertension No 06/09/24 11:32 Hx Sleep Apnea No 06/09/24 11:32 CPAP BIPAP Do you snore loudly (louder No 06/09/24 11:32 than talking or can be heard Do you often feel tired/ No 06/09/24 11:32 fatigued/ sleepy during daytime? Has anyone observed you stop No 06/09/24 11:32 breathing during sleep? STOP Results Negative 06/09/24 11:32 QUESTION #5 FULL TEXT : Do you snore loudly (louder than talking or can be heard through closed doors)? 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 Specify any problems Hx of Preganancy in last 3 N/A 06/09/24 11:32 Months Nurse Filling Out Transfusion NBUCHER 06/09/24 11:32 & Questions: Date: 06/09/24 06/09/24 11:32 Time: 11:35 06/09/24 11:32 Patient unable to answer at this time (ie. confused, unrespo /Reproduction History /Reproductive History - utility driver: /Reproductive Hx- utility driver Hx Now No 06/09/24 11:32 Gestational Age (in weeks): EDC: Hx Hx Para Hx Section SAB No 06/09/24 11:32 PFSH Medical History Wears glasses History of steroid therapy Thyroid disease Arthritis Non-smoker Shortness of breath on exertion Cardiology follow-up encounter History of stress test History of echocardiogram Ingrown toenail Hypothyroidism Essential hypertension Thoracic back pain Obesity HTN (hypertension) Chest pain Vitamin deficiency Back problem Home Medications ?Medication ?Instructions ?Recorded ?Last Taken ?Type Zinc Liver Chelate 2 tab PO TID 07/14/19 History catalyn 1 tab PO TID 07/14/19 History gotu cheli (Centella asiatica) 475 475 mg PO DAILY 04/0306/20/24 History mg capsule medium chain triglycerides 14 15 ml PO QDAY 04/25/24 0 06/14/24 History gram-120 kcal/15 mL oral oil (MCT Oil) omega [id number] oil 600 1 cap PO DAILY 06/19/24 History mg-20 mg-500 mcg-800 mcg capsule ibuprofen 800 mg tablet 800 mg PO Q8H PRN pain #30 t abs 06/21/24 Unknown Rx Allergy/AdvReac Type Severity Reaction Status Date / Time latex Allergy Intermediate Rash Verified 06/21/24 11:43 Family History Mother Anemia Arthritis Breast cancer CVA (cerebral vascular accident) Father Myocardial infarction Heart disease Grandmother Liver disease Son Anxiety Surgical History History of toe surgery (~1964) History of removal of cyst Social History Smoking Status: Never smoker alcohol intake: never substance use type: does not use caffeine: No what type of physical activity do you participate in: none seatbelt use: always do you feel safe at home: Yes 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
--- NOTE | 2024-06-21 12:45 | EMB_PTH ---
PATIENT: CAMILLE BERNABE LOC: [facility] – [place] U#:[id number] AGE/SX: 74/F ROOM: RE06/21/[address]: Dr. Snehal Lozano DO : 1950 BED: DIS: 06/21/2024 SPEC #: [id number] RECD: 06/21/24 14:40 STATUS: OG MERCADO #: [id number] NGOZI: 06/21/24 12:[address]: Snehal Lozano DEPT: SURGICAL PATHOLOGY RECD BY: Jair Sepulveda ENTERED: 06/21/24 14:41 SP TYPE: ENDOM BX/C OTHR DR: Dr. Beryl Keane DO Tissues: B - Endometrium, NOS A - POLYP Procedures: Immunohistochemical Stains Surgery Specimen Level IV IHC Stain ADDITIONAL HEADER OPERATION: Hysteroscopy, D&C, polypectomy PRE-OP DIAGNOSIS: Postmenopausal bleeding, thickened endometrium TISSUE SUBMITTED: A- Cervical polyp, B- Endometrial curettings MICROSCOPIC DIAGNOSIS A. Uterus, cervix, polyp, polypectomy: * Benign polyp with endometrial and endocervical features, multiple fragments - see Comment. * Scant squamous cervical mucosa with reactive change. B. Uterus, endometrium, dilation and curettage: * Fragments of myometrium suggestive of leiomyoma. * Fragments of polyp with endometrial and endocervical features - see Comment. * Scant endometrium with cystic atrophy. COMMENT A, B) The IHC for CD10 is positive (A1, B1, B2) which, although not specific, does support the histologic impression of endometrial and endocervical polyp(s), possibly of lower uterine segment origin. MICROSCOPIC DESCRIPTION Slides are reviewed. All matched controls reacted appropriately. These tests were developed and their performance characteristics determined by [facility]. They may not have been cleared or approved by the [place]. Food and Drug Administration. The FDA has determined that such clearance or approval is not necessary.? The above immunohistochemical/dualISH?markers are ordered and reviewed by the Pathologist. GROSS DESCRIPTION A. Received in formalin in a container labeled with the patient's name, date of , and cervical polyp are multiple myers-pink fragments of soft tissue admixed with mucus, measuring 2.0 x 2.0 x 0.6 cm in aggregate. Submitted in toto in A1-2. B. Received in formalin in a container labeled with the patient's name, date of , and endocervical curettings are multiple red-myers fragments of soft tissue admixed with a scant amount of blood and mucus, measuring 2.5 x 1.5 x 1.0 cm in aggregate. Submitted in toto in B1-2. B 06/22/2024 CPT:48428k2,[id number],84606
[2024-06-21] MEDS: Lidocaine 1% (20 ml mdv) 20 ML Vial (13:02)
--- NOTE | 2024-06-21 13:46 | OP.PCM_ITS ---
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: No Type of Anesthesia: MAC/Supplemental/Local RN Documented Start/Stop Times: Operation Date: 06/21/24 12:45 Case Time Into Pre-Op 06/21/24 11:17 Out of Pre-Op 06/21/24 12:33 Anesthesia Start 06/21/24 12:38 Into Room 06/21/24 12:38 Procedure Start 06/21/24 13:03 Procedure End 06/21/24 13:30 Anesthesia End 06/21/24 13:39 Out of Room 06/21/24 13:39 Procedure Start Time: 13:03 Procedure Stop Time: 13:30 Select all DRAINS/GRAFTS/IMPLANTS that apply: None Estimated Blood Loss: 30cc Specimen collected: Yes Description of specimen(s) removed: endocervical polyp and endometrial fibroid and curetting's Description of surgery: Patient was prepped and draped in a normal sterile fashion under MAC anesthesia. A weighted speculum was placed in the vagina and there was noted a large rectocele. A bivalve speculum was used for better visualization and the anterior lip of the cervix was grasped with a single-tooth tenaculum. A paracervical block was placed with 1% lidocaine. Cervix was progressively dilated to allow passage of a 5 mm hysteroscope. The lining was fully visualized and noted to have a large fibroid at the fundal aspect. Uterine sounded to 10 cm. Curettage was performed first in the cervix to remove a polyp appearing structure. This was sent to pathology. THe symphion device was then used to remove the fundal fibroid in small segments. This was also passed off for pathology analysis. fl uid deficit was found to be 200cc. All instruments were removed from the vagina and excellent hemostasis was noted. Patient was awoken and taken to recovery in stable condition. Surgical Findings: cervical polyp and endometrial fibroid Complications Complications: No Admit VTE Documentation VTE Present on Admission: No VTE Mechan Device Prophylaxis: SCD's VTE Pharm Prophylaxis ordered?: No
--- NOTE | 2024-06-21 13:50 | PCM.POST.ANE ---
Anesthesia: Postop Eval I Current Vital Signs Temperature: 97 F Pulse Rate: 72 Blood Pressure: 93/50 Respiratory Rate: 16 Pulse Ox: 95 Oxygen Delivery Method: Room Air Assessment Airway patent: Yes Spontaneous unlabored respirations: Yes Mental status: Awake and Calm nausea: No Vomiting: No Anesthesia Complication: No Fluid Hydration Crystalloid volume administer (ml): 20 Total IV fluid infused: 20 Progress Note Anesthesia document: Postop Eval 1 completed: Yes
--- NOTE | 2024-06-21 14:05 | SUR.PHASEI ---
MORPHINE 4MG GIVEN IV AND PATIENT IMMEDIATELY STARTED COMPLAINING OF A SEVERE HEADACHE. SHE STATES I NORMALLY DON'T GET HEADACHES', BP LOW AT 81/41. DR. BENJAMIN CALLED AND HE GAVE ME AN ORDER FOR LR BOLUS 1000ML X1 STARTED.
--- NOTE | 2024-06-21 20:20 | POSTOPAN2_ITS ---
Anesthesia Postop Eval I Sum Postop Eval Completion status Anesthesia document: Postop Eval 1 completed: Yes Anesthesia Postop Eval I Summary Anesthesia Postop Eval I Summary: Anesthesia Postop Eval I: Assessment Summary Airway patent Yes 06/21/24 13:51 VOCATIONAL TRAINING INSTRUCTOR.[email or web address] Spontaneous unlabored Yes 06/21/24 13:51 VOCATIONAL TRAINING INSTRUCTOR.[email or web address] respirations Mental status Awake,Calm 06/21/24 13:51 VOCATIONAL TRAINING INSTRUCTOR.[email or web address] nausea No 06/21/24 13:51 VOCATIONAL TRAINING INSTRUCTOR.[email or web address] Vomiting No 06/21/24 13:51 VOCATIONAL TRAINING INSTRUCTOR.[email or web address] Anesthesia Postop Eval I: Fluid Summary Crystalloid volume administer 20 06/21/24 13:51 VOCATIONAL TRAINING INSTRUCTOR.[email or web address] (ml) Colloids volume administered ( ml) Blood Product volume administered (ml) Total IV fluid infused 20 06/21/24 13:51 VOCATIONAL TRAINING INSTRUCTOR.[email or web address] Anesthesia Postop Eval I: Summary Notes Anesthesia Complication No 06/21/24 13:51 VOCATIONAL TRAINING INSTRUCTOR.[email or web address] Anesthesia Complication Comment: Post-operative progress note Anesthesia: Postop Eval II Evaluation Mental status: Awake and Calm Pain Level: 2 nausea: No Vomiting: No Complications Anesthesia Complication: No
--- NOTE | 2024-06-21 20:20 | PCM.POSTANE2 ---
Anesthesia Postop Eval I Sum Postop Eval Completion status Anesthesia document: Postop Eval 1 completed: Yes Anesthesia Postop Eval I Summary Anesthesia Postop Eval I Summary: Anesthesia Postop Eval I: Assessment Summary Airway patent Yes 06/21/24 13:51 WEB OFFSET PRESS FEEDER.[email or web address] Spontaneous unlabored Yes 06/21/24 13:51 WEB OFFSET PRESS FEEDER.[email or web address] respirations Mental status Awake,Calm 06/21/24 13:51 WEB OFFSET PRESS FEEDER.[email or web address] nausea No 06/21/24 13:51 WEB OFFSET PRESS FEEDER.[email or web address] Vomiting No 06/21/24 13:51 WEB OFFSET PRESS FEEDER.[email or web address] Anesthesia Postop Eval I: Fluid Summary Crystalloid volume administer 20 06/21/24 13:51 WEB OFFSET PRESS FEEDER.[email or web address] (ml) Colloids volume administered ( ml) Blood Product volume administered (ml) Total IV fluid infused 20 06/21/24 13:51 WEB OFFSET PRESS FEEDER.[email or web address] Anesthesia Postop Eval I: Summary Notes Anesthesia Complication No 06/21/24 13:51 WEB OFFSET PRESS FEEDER.[email or web address] Anesthesia Complication Comment: Post-operative progress note Anesthesia: Postop Eval II Evaluation Mental status: Awake and Calm Pain Level: 2 nausea: No Vomiting: No Complications Anesthesia Complication: No
== END 2024-06-21 16:14 | disposition home or self-care (01) ==
LOC: SDC 11:09 → AC 11:13
PROVIDERS: PCP Internal Medicine; Referring Provider Obstetrics & Gynecology; Visit Provider Obstetrics & Gynecology
PROC: 0UDB8ZZ Extraction of Endometrium, Via Natural or Artificial Opening Endoscopic (ICD-10-PCS; CPT 58558; principal; 2024-06-21 12:35)
DX: N84.1 Polyp of cervix uteri (principal); N95.0 Postmenopausal bleeding; N81.6 Rectocele; I10 Essential (primary) hypertension; R93.89 Abnormal findings on diagnostic imaging of other specified body structures; D25.9 Leiomyoma of uterus, unspecified
CPT/HCPCS: 58558; 00952; 36415; 80053; 85027; 86850; 86900; 86901; 88305; 88341; 88342; 93005; A4216; J2405

== ENCOUNTER → 2024-08-13 | Outpatient (CLI) | payer MEDICARE, SELFPAY ==
--- OUTSIDE RECORDS SUMMARY | 2024-08-13 08:09 | XMS RPT_ITS | CCD ---
Author Organization [facility] Care Team Providers Care Industrial Psychology Professor Name Role Phone Beryl Keane Unavailable Nestor Do Unavailable Slarb, Gisselle Unavailable Unavailable Gravius, Obdulia Unavailable Unavailable Unavailable Unavailable Jannie Saenz Unavailable Unavailable Unavailable Unavailable Stephanie Mata Unavailable Unavailable [facility] Unavailable Sera Harrison [place] Unavailable [phone] Beryl Keane DO Unavailable Nestor Do MD Unavailable [facility] Unavailable Sera Harrison Leo Unavailable Jannie Saenz LPN Unavailable Unavailable Unavailable Unavailable Harsha RAMIREZNJair Unavailable Unavailable Adolfo RODRIGUEZ, Stephanie Unavailable Unavailable Joan Junior Unavailable Anaya Orlando MA Unavailable Unavailable Beryl Keane DO Unavailable Gravius SHIPPING WEIGHER, Obdulia Unavailable Unavailable [place] SHIPPING WEIGHER, Kayela Unavailable Unavailable [place] SHIPPING WEIGHER, Jocelyn Unavailable Unavailable Beryl Keane DO Attending Unavailable Beryl Keane DO Referring Unavailable Beryl Keane DO Consulting Unavailable [place] BEEF TRIMMER, Ashwin Unavailable Unavailable Dr. Beryl Keane Primary Care Provider [phone] Dr. Larry Hays Attending Provider Slarb BEEF TRIMMER, Gisselle Unavailable Unavailable Johann GUILLERMO, Araceli Unavailable [phone] Beryl Keane Primary Care Provider [phone] Dr. Larry Hays Attending Provider [phone] Lakhwinder DO, Dr. Cordoba Primary Care Provider Lakhwinder DO, Dr. Cordoba Attending Provider [phone] Lakhwinder DO, Dr. Cordoba Referring Provider [phone] Lis COFFEY, Dr. Juarez Attending Provider [phone] Vandbruce Santos DO, Dr. Brian Attending Provider Vande Tom DO, Dr. Brian Referring Provider Lakhwinder DO, Dr. Cordoba Primary Care Provider Lakhwinder DO, Dr. Cordoba Attending Provider [phone] Lakhwinder DO, Dr. Cordoba Referring Provider [phone] Lis COFFEY, Dr. Juarez Attending Provider [phone] Vandbruce Santos DO, Dr. Brian Attending Provider Vandbruce Santos DO, Dr. Brian Referring Provider Lakhwinder, Beryl Attending Unavailable Lakhwinder, Beryl Referring Unavailable Lakhwinder, Beryl Primary Care Unavailable Lakhwinder, Beryl Attending Unavailable Lakhwinder, Beryl Primary Care Unavailable Lakhwinder, Beryl Referring Unavailable Vande Velde, Snehal Referring Unavailabl e Lakhwinder, Beryl Primary Care Unavailable Link Jeffrey Attending Unavailable Lakhwinder, Beryl Primary Care Unavailable Larry Hays Attending Unavailable Vande VeldeSnehal Attending Unavailabl e Vande VeldeSnehal Consulting Unavailabl e Vande Velde, Snehal Referring Unavailabl e Lakhwinder, Beryl Primary Care Unavailable Lakhwinder, Beryl Primary Care Unavailable Lakhwinder, Beryl Referring Unavailable Vande Velde, Snehal Attending Unavailabl e Lakhwinder, Beryl Referring Unavailable Vande Velde, Snehal Attending Unavailabl e Lakhwinder, Beryl Primary Care Unavailable Lakhwinder, Beryl Primary Care Unavailable Lis, Fulton Attending Unavailable Lakhwinder, Beryl Primary Care Unavailable LisLarry Attending Unavailable Lakhwinder, Beryl Primary Care Unavailable Lakhwinder, Beryl Referring Unavailable Vande Velde, Snehal Attending Unavailabl e Lakhwinder, Beryl Attending Unavailable Lakhwinder, Beryl Primary Care Unavailable Lakhwinder, Beryl Referring Unavailable Lakhwinder, Beryl Attending Unavailable Lakhwinder, Beryl Primary Care Unavailable Lakhwinder, Beryl Referring Unavailable Lakhwinder, Beryl Referring Unavailable Lakhwinder, Beryl Attending Unavailable Lakhwinder, Beryl Primary Care Unavailable Lakhwinder, Beryl Primary Care Unavailable Vande Tom, Snehal Referring Unavailabl e Vande Velanahi, Snehal Attending Unavailabl e Lakhwinder, Beryl Primary Care Unavailable Johann, Araceli Referring Unavailable Johann, Araceli Attending Unavailable Lakhwinder, Beryl Primary Care Unavailable Vande Velde, Snehal Referring Unavailabl e Vande Velde, Snehal Attending Unavailabl e Lakhwinder, Beryl Referring Unavailable Lakhwinder, Beryl Attending Unavailable Lakhwinder, Beryl Primary Care Unavailable Allergies Allergy Classification Reported Allergen(s) Allergy Type Date of Onset Reaction(s) Facility (18 sources) Milk; Translations: [Milk] Allergy to substance (finding) [facility]; [facility] Work Phone: Comment on above: and dairy products (4 sources) Latex Allergy to substance 0 Rash [facility] (1 source) Latex Drug allergy (disorder) 5 [facility] Repository Medications Current Medications Medication Drug Class(es) Dates Sig (Normalized) Sig (Original) calcium lactate 100 mg calcium tablet (2 sources) Start: 07-14-2019 take 2 tablets by mouth three times daily calcium lactate 100 mg calcium tablet Active 200 MG PO THREE TIMES A DAY July 14, 2019 12:00am catalyn (4 sources) Start: 07-14-2019 catalyn Active 1 {tbl} PO THREE TIMES A DAY July 14, 2019 12:00am Start: 07-14-2019 catalyn Active 1 {tbl} PO THREE TIMES A DAY July 13, 2019 11:00pm Start: 07-14-2019 take 1 tablet by cris th three times daily catalyn Active 1 TABLET PO THREE TIMES A DAY July 14, 2019 12:00am Gotu Rui Extract (2 sources) Start: 04-25-2024 Gotu Rui (Karen tella Asiatica) 475 mg capsule Active mg PO April 25, 2024 1:00am Start: 04-25-2024 Gotu Rui (Karen tella Asiatica) 475 mg capsule Active mg PO April 25, 2024 12:00am Medium Chain Triglycerides (Mct Oil) 14 gram-120 kcal/15 mL oil (2 sources) Start: 04-25-2024 take 1 mL by mouth once daily Medium Chain Triglycerides (Mct Oil) 14 gram-120 kcal/15 mL oil Active 15 mL PO daily April 25, 2024 1:00am Start: 04-25-2024 take 1 mL by mouth once daily Medium Chain Triglycerides (Mct Oil) 14 gram-120 kcal/15 mL oil Active 15 mL PO daily April 25, 2024 12:00am [id number]-Fa-Fish O il [phone] za-vi-eei-mcg capsule (2 sources) Start: 04-25-2024 Tqvwu3-[id number]-O64-E-Fa-Fish O il [phone] ph-ri-kwa-mcg capsule Active NMA PO April 25, 2024 1:00am Start: 04-25-2024 Rgycn6-Mkmv9-J 33-C-Aa-Fish Oil [phone] lk-yt-niv-mcg capsule Active NMA PO April 25, 2024 12:00am Zinc Liver Chelate (4 sources) Start: 07-14-2019 Zinc Liver Zelda late Active 2 {tbl} PO THREE TIMES A DAY July 14, 2019 12:00am Start: 07-14-2019 Zinc Liver Zelda late Active 2 {tbl} PO THREE TIMES A DAY July 13, 2019 11:00pm Start: 07-14-2019 take 2 tablets by mo [facility] three times daily Zinc Liver Chelate Active 2 TABLET PO THREE TIMES A DAY July 14, 2019 12:00am Completed/Discontinued Medications Medication Drug Class(es) Dates Sig (Normalized) Sig (Original) A-F BETAFOOD (4 sources) Start: 07-03-2017 End: 07-07-2019 A-F BETAFOOD Discontinued 2 {tbl} PO TWICE A DAY July 03, 2017 12:00am July 07, 2019 1:56pm Start: 07-03-2017 End: 07-07-2019 A-F BETAFOOD Discontinued 2 {tbl} PO TWICE A DAY July 02, 2017 11:00pm July 07, 2019 12:56pm Start: 07-03-2017 End: 07-07-2019 take 2 tablets by mouth twice daily A-F BETAFOOD Discontinued 2 TABLET PO TWICE A DAY July 03, 2017 12:00am July 07, 2019 1:56pm Advanced Mitochondrial EGY (4 sources) Start: 07-03-2017 End: 07-07-2019 Advanced Mitochondrial EGY Discontinued 1 {tbl} PO TWICE A DAY July 03, 2017 12:00am July 07, 2019 1:56pm Start: 07-03-2017 End: 07-07-2019 Advanced Mitochondrial EGY Discontinued 1 {tbl} PO TWICE A DAY July 02, 2017 11:00pm July 07, 2019 12:56pm Start: 07-03-2017 End: 07-07-2019 take 1 tablet by mouth twice daily Advanced Mitochondrial EGY Discontinued 1 TABLET PO TWICE A DAY July 03, 2017 12:00am July 07, 2019 1:56pm amLODIPine 5 mg oral tablet (20 sources) Dihydropyridine Calcium Channel [place] Start: 07-07-2019 End: 04-25-2024 take 1 tablet by mouth once daily Amlodipine 5 mg tablet Discontinued 5 mg PO DAILY July 07, 2019 12:00am April 25, 2024 12:20pm aspirin 81 mg delayed release oral tablet (8 sources) Platelet Aggregation Inhibitor, Nonsteroidal Anti-inflammatory Drug Start: 07-14-2019 End: 04-25-2024 take 1 tablet by mouth once daily Aspirin 81 mg tablet,delayed release (DR/EC) Discontinued 81 mg PO DAILY July 14, 2019 12:00am April 25, 2024 12:20pm Start: 09-25-2017 End: 07-07-2019 take 1 tablet by mouth once daily Aspirin 81 MG tablet Discontinued 81 mg PO DAILY@0800 30 September 25, 2017 12:00am July 07, 2019 2:01pm azithromycin 500 mg oral tablet (9 sources) Macrolide Antimicrobial Start: 06-19-2022 End: 06-29-2022 take 1 tablet by mouth once daily azithromycin 500 mg oral tablet 1 (one) tablet qd for 10 days Quantity: 10 {Tablet} Refills: 0 Ordered: 19-Jun-2022 Beryl Keane DO, DO, Kathleen Start : 19-Jun-2022 End : 29-Jun-2022 Inactive Betaine (4 sources) Methylating Agent Start: 07-14-2019 End: 04-25-2024 Betaine Hydrochloride Discontinued 1 {tbl} PO THREE TIMES A DAY July 14, 2019 12:00am April 25, 2024 12:30pm Start: 07-14-2019 End: 04-25-2024 Betaine Hydrochloride Discon tinued 1 {tbl} PO THREE TIMES A DAY July 13, 2019 11:00pm April 25, 2024 11:30am Start: 07-14-2019 take 1 tablet by cris th three times daily Betaine Hydrochloride Active 1 TABLET PO THREE TIMES A DAY July 14, 2019 12:00am Boswella complex (4 sources) Start: 07-14-2019 End: 04-25-2024 Boswella complex Discontinue d 1 {tbl} PO THREE TIMES A DAY July 14, 2019 12:00am April 25, 2024 12:30pm Start: 07-14-2019 End: 04-25-2024 Boswella complex Discontinue d 1 {tbl} PO THREE TIMES A DAY July 13, 2019 11:00pm April 25, 2024 11:30am Start: 07-14-2019 take 1 tablet by cris th three times daily Boswella complex Active 1 TABLET PO THREE TIMES A DAY July 14, 2019 12:00am Calcium Lactate 100 mg calcium tablet (2 sources) Start: 07-14-2019 End: 04-25-2024 take 2 tablets by mouth three times daily Calcium Lactate 100 mg calcium tablet Discontinued 200 mg PO THREE TIMES A DAY July 14, 2019 12:00am April 25, 2024 12:30pm Start: 07-14-2019 End: 04-25-2024 take 2 tablets by mouth three times daily Calcium Lactate 100 mg calcium tablet Discontinued 200 mg PO THREE TIMES A DAY July 13, 2019 11:00pm April 25, 2024 11:30am CATAPLEX (4 sources) Start: 07-03-2017 End: 07-07-2019 CATAPLEX Discontinued 2 {tbl } PO TWICE A DAY July 03, 2017 12:00am July 07, 2019 1:56pm Start: 07-03-2017 End: 07-07-2019 CATAPLEX Discontinued 2 {tbl } PO TWICE A DAY July 02, 2017 11:00pm July 07, 2019 12:56pm Start: 07-03-2017 End: 07-07-2019 take 2 tablets by mouth twice daily CATAPLEX Discontinued 2 TABLET PO TWICE A DAY July 03, 2017 12:00am July 07, 2019 1:56pm cataplex a-c (4 sources) Start: 07-14-2019 End: 04-25-2024 cataplex a-c Discontinued 1 {tbl} PO THREE TIMES A DAY July 14, 2019 12:00am April 25, 2024 12:30pm Start: 07-14-2019 End: 04-25-2024 cataplex a-c Discontinued 1 {tbl} PO THREE TIMES A DAY July 13, 2019 11:00pm April 25, 2024 11:30am Start: 07-14-2019 take 1 tablet by cris th three times daily cataplex a-c Active 1 TABLET PO THREE TIMES A DAY July 14, 2019 12:00am CATAPLEX C (4 sources) Start: 07-03-2017 End: 07-07-2019 CATAPLEX C Discontinued 1 {t bl} PO TWICE A DAY July 03, 2017 12:00am July 07, 2019 1:56pm Start: 07-03-2017 End: 07-07-2019 CATAPLEX C Discontinued 1 {t bl} PO TWICE A DAY July 02, 2017 11:00pm July 07, 2019 12:56pm Start: 07-03-2017 End: 07-07-2019 take 1 tablet by mouth twice daily CATAPLEX C Discontinued 1 TABLET PO TWICE A DAY July 03, 2017 12:00am July 07, 2019 1:56pm cefadroxil 500 mg oral capsule (20 sources) Cephalosporin Antibacterial Start: 09-15-2016 End: 09-22-2016 take 2 capsules by mouth twice daily Cefadroxil 500 MG Oral Capsule 2 (two) Capsule bid for 7 days Quantity: 28 {Capsule} Refills: 0 Ordered: 15-Sep-2016 Joan Bangura Start : 15-Sep-2016 End : 22-Sep-2016 Inactive chelaCO (4 sources) Start: 07-14-2019 End: 04-25-2024 chelaCO Discontinued 1 {tbl} PO THREE TIMES A DAY July 14, 2019 12:00am April 25, 2024 12:30pm Start: 07-14-2019 End: 04-25-2024 chelaCO Discontinued 1 {tbl} PO THREE TIMES A DAY July 13, 2019 11:00pm April 25, 2024 11:30am Start: 07-14-2019 take 1 tablet by cris th three times daily chelaCO Active 1 TABLET PO THREE TIMES A DAY July 14, 2019 12:00am ciprofloxacin 3 mg/ml ophthalmic solution (9 sources) Quinolone Antimicrobial Start: 06-19-2022 End: 10-22-2022 take 1 mL into the eye(s) every two hours ciprofloxacin HCl 0.3 % ophthalmic (eye) drops 1 (one) mL left eye q2hr while awake till gone for 0 days Quantity: 1 {Unspecified} Refills: 0 Ordered: 22-Oct-2022 Gisselle Garcia LPN Start : 19-Jun-2022 End : 22-Oct-2022 Inactive Comments: one bottle Comment on above: one bottle diazePAM 10 mg oral tablet (4 sources) Benzodiazepine Start: 11-10-2017 End: 11-11-2017 take 1 tablet by mouth once as needed Diazepam 10 mg tablet Discontinued 10 mg PO ONCE as needed for sedation 2 November 10, 2017 12:00am November 10, 2017 12:00am November 11, 2017 12:05am DRENAMIN (4 sources) Start: 07-03-2017 End: 07-07-2019 DRENAMIN Discontinued 3 {tbl} PO TWICE A DAY July 03, 2017 12:00am July 07, 2019 1:56pm Start: 07-03-2017 End: 07-07-2019 DRENAMIN Discontinued 3 {tbl } PO TWICE A DAY July 02, 2017 11:00pm July 07, 2019 12:56pm Start: 07-03-2017 End: 07-07-2019 take 3 tablets by mouth twice daily DRENAMIN Discontinued 3 TABLET PO TWICE A DAY July 03, 2017 12:00am July 07, 2019 1:56pm eco thyro 37 (12 sources) Start: 11-04-2019 End: 04-25-2024 eco thyro 37 Discontinued 1 {tbl} PO THREE TIMES A DAY November 04, 2019 11:11am April 25, 2024 12:31pm Start: 11-04-2019 End: 04-25-2024 eco thyro 37 Discontinued 1 {tbl} PO THREE TIMES A DAY November 04, 2019 10:11am April 25, 2024 11:31am Start: 11-04-2019 take 1 tablet by cris th three times daily eco thyro 37 Active 1 TABLET PO THREE TIMES A DAY November 04, 2019 11:11am Start: 07-14-2019 End: 11-04-2019 eco thyro 37 Discontinued 3 {tbl} PO THREE TIMES A DAY July 14, 2019 11:07am November 04, 2019 11:13am Start: 07-14-2019 End: 11-04-2019 eco thyro 37 Discontinued 3 {tbl} PO THREE TIMES A DAY July 14, 2019 10:07am November 04, 2019 10:13am Start: 07-14-2019 End: 11-04-2019 take 3 tablets by mouth three times daily eco thyro 37 Discontinued 3 TABLET PO THREE TIMES A DAY July 14, 2019 11:07am November 04, 2019 11:13am Start: 07-07-2019 End: 07-14-2019 eco thyro 37 Discontinued 3 {tbl} PO DAILY July 07, 2019 12:00am July 14, 2019 11:13am Start: 07-07-2019 End: 07-14-2019 eco thyro 37 Discontinued 3 {tbl} PO DAILY July 06, 2019 11:00pm July 14, 2019 10:13am Start: 07-07-2019 End: 07-14-2019 take 3 tablets by mouth once daily eco thyro 37 Discontinued 3 TABLET PO DAILY July 07, 2019 12:00am July 14, 2019 11:13am eco-thyro 37 (20 sources) eco-thyro 37 3 d aily Active hydroCHLOROthiazide 25 mg oral tablet (20 sources) Thiazide Diuretic Start: 020 End: 025 take 1 tablet by mouth once daily Hydrochlorothiazide 25 mg tablet Discontinued 25 mg PO DAILY July 07, 2019 12:00am April 25, 2024 12:23pm Start: 11-10-2017 End: 07-14-2018 take 1 tablet by mouth once daily Hydrochlorothiazide 12.5 mg tablet Discontinued 12.5 mg PO DAILY November 10, 2017 12:00am July 14, 2018 2:37pm HYDROCORT (4 sources) Start: 07-14-2018 End: 07-07-2019 HYDROCORT Discontinued PO 2018 11:00pm July 07, 2019 12:56pm Start: 07-14-2018 End: 07-07-2019 HYDROCORT Discontinued PO Ma y 2018 12:00am July 07, 2019 1:56pm LIPOTHIAMINE B (4 sources) Start: 07-03-2017 End: 07-07-2019 LIPOTHIAMINE B Discontinued 2 {tbl} PO DAILY July 03, 2017 12:00am July 07, 2019 1:56pm Start: 07-03-2017 End: 07-07-2019 LIPOTHIAMINE B Discontinued 2 {tbl} PO DAILY July 02, 2017 11:00pm July 07, 2019 12:56pm Start: 07-03-2017 End: 07-07-2019 take 2 tablets by mouth once daily LIPOTHIAMINE B Discontinued 2 TABLET PO DAILY July 03, 2017 12:00am July 07, 2019 1:56pm lisinopril 20 mg oral tablet (20 sources) Angiotensin Converting Enzyme Inhibitor Start: 07-07-2019 End: 04-25-2024 take 1 tablet by mouth twice daily Lisinopril 20 mg tablet Discontinued 20 mg PO TWICE A DAY July 07, 2019 1:57pm April 25, 2024 12:23pm Start: 10-30-2017 End: 07-07-2019 take 1 tablet by mouth once daily Lisinopril 20 mg tablet Discontinued 20 mg PO DAILY July 14, 2018 2:50pm July 07, 2019 2:01pm Start: 10-09-2017 End: 10-30-2017 take 1 tablet by mouth once daily Lisinopril 10 mg tablet Discontinued 10 mg PO DAILY October 09, 2017 9:42am October 30, 2017 9:59am Start: 09-25-2017 End: 10-09-2017 take 1 tablet by mouth once daily Lisinopril 5 MG tablet Discontinued 5 mg PO DAILY September 25, 2017 12:00am October 09, 2017 9:44am magnesium lactate 84 mg extended release oral tablet (4 sources) Start: 07-14-2019 End: 04-25-2024 take 1 tablet by mouth three times daily Magnesium L-Lactate 84 mg tablet extended release Discontinued 84 mg PO THREE TIMES A DAY July 14, 2019 12:00am April 25, 2024 12:31pm meloxicam 15 mg oral tablet (19 sources) Nonsteroidal Anti-inflammatory Drug Start: 11-21-2020 End: 02-13-2021 take 1 tablet by mouth once daily Meloxicam 15 MG Oral Tablet 1 (one) Tablet daily for 0 days Quantity: 30 {Tablet} Refills: 1 Ordered: 13-Feb-2021 Stephanie Mata LPN Start : 21-Nov-2020 End : 13-Feb-2021 Inactive metFORMIN hydrochloride 500 mg oral tablet (20 sources) Biguanide Start: 05-11-2020 End: 08-22-2020 take 1 tablet by mouth twice daily metFORMIN HCl 500 MG Oral Tablet 1 (one) Tablet bid for 0 days Quantity: 60 {Tablet} Refills: 3 Ordered: 22-Aug-2020 Jocelyn Hsu CMA Start : 11-May-2020 End : 22-Aug-2020 Inactive nature thyroid (4 sources) Start: 07-03-2017 End: 08-18-2017 nature thyroid Discontinued PO July 02, 2017 11:00pm August 18, 2017 10:25am Start: 07-03-2017 End: 08-18-2017 nature thyroid Discontinued PO July 03, 2017 12:00am August 18, 2017 11:25am NATURE THYROID 1 GRAIN (4 sources) Start: 07-14-2018 End: 07-07-2019 NATURE THYROID 1 GRAIN Disco ntinued PO TWICE A DAY July 13, 2018 11:00pm July 07, 2019 12:56pm Start: 07-14-2018 End: 07-07-2019 NATURE THYROID 1 GRAIN Disco ntinued PO TWICE A DAY July 14, 2018 12:00am July 07, 2019 1:56pm natures thyroid (20 sources) Start: 07-14-2019 End: 04-25-2024 take 0.5 g by mouth twice daily natures thyroid Discontinued 0.5 g PO TWICE A DAY July 14, 2019 11:04am April 25, 2024 12:31pm Start: 07-14-2019 End: 04-25-2024 take 0.5 g by mouth twice daily natures thyroid Discontinued 0.5 g PO TWICE A DAY July 14, 2019 10:04am April 25, 2024 11:31am Start: 07-14-2019 take 0.5 g by mouth twice daily natures thyroid Active 0.5 GM PO TWICE A DAY July 14, 2019 11:04am Start: 07-07-2019 End: 07-14-2019 take 0.5 g by mouth once daily natures thyroid Discont inued 0.5 g PO DAILY July 07, 2019 12:00am July 14, 2019 11:13am Start: 07-07-2019 End: 07-14-2019 take 0.5 g by mouth once daily natures thyroid Discont inued 0.5 g PO DAILY July 06, 2019 11:00pm July 14, 2019 10:13am Start: 07-07-2019 End: 07-14-2019 take 0.5 g by mouth once daily natures thyroid Discont inued 0.5 GM PO DAILY July 07, 2019 12:00am July 14, 2019 11:13am natures thyroid 1/2 gram daily Inactive natures thyroid 1/2 gram daily Active predniSONE 20 mg oral tablet (9 sources) Start: 06-19-2022 End: 10-22-2022 predniSONE 20 mg oral tablet 1 (one) tablet bid for 2days then one tab qd for 2days for 0 days Quantity: 6 {Tablet} Refills: 0 Ordered: 22-Oct-2022 Gisselle Garcia LPN Start : 19-Jun-2022 End : 22-Oct-2022 Inactive STANDARD PROCESS - SEE SCANNED LIST (20 sources) STANDARD PROCESS - SEE SCANNED LIST Active Comments: SEE SCANNED LIST IN CHART Comment on above: SEE SCANNED LIST IN CHART T3 (4 sources) Start: 07-14-2018 End: 07-07-2019 T3 Discontinued PO TWICE A DAY July 13, 2018 11:00pm July 07, 2019 12:57pm Start: 07-14-2018 End: 07-07-2019 T3 Discontinued PO TWICE A D AY July 14, 2018 12:00am July 07, 2019 1:57pm thyroid (INTERMEDIATE) (20 sources) Nature Throid 65 mg daily Inactive tiZANidine 4 mg oral tablet (19 sources) Central alpha-2 Adrenergic Agonist Start: End: 1 take 1 tablet by mouth twice daily tiZANidine HCl 4 MG Oral Tablet 1 (one) Tablet two times daily for 0 days Quantity: 60 {Tablet} Refills: 1 Ordered: 13-Feb-2021 Stephanie Mata LPN Start : 21-Nov-2020 End : 13-Feb-2021 Inactive Vhjcquv-Z-Fdkhlcylo Sodium Powder (20 sources) Start: 7 End: 0 Fnbcxbm-C-Vpqjsymsv Sodium Powder 1 (one) Powder daily for 0 days Quantity: 30 {Tablet} Refills: 0 Ordered: 04-May-2019 Gisselle Garcia LPN Start : 09-Sep-2016 End : 04-May-2019 Discontinued Comments: This order discontinued per [facility]. Comment on above: This order discontin ued per [facility]. Triode - L Thytonine (4 sources) Start: 8 End: 0 Triode - L Thytonine Discontinued 1 {tbl} PO DAILY July 03, 2017 12:00am July 07, 2019 1:57pm Start: 07-03-2017 End: 07-07-2019 Triode - L Thytonine Discont inued 1 {tbl} PO DAILY July 02, 2017 11:00pm July 07, 2019 12:57pm Start: 07-03-2017 End: 07-07-2019 take 1 tablet by mouth once daily Triode - L Thytonine Discontinued 1 TABLET PO DAILY July 03, 2017 12:00am July 07, 2019 1:57pm vitamin d with calcium (4 sources) vitamin d with c alcium Active Problems Active Problems Problem Classification Problem Date Documented Da te Episodic/Chronic Adjustment disorders (20 sources) Grief finding; Translations: [Grieving] 02-08-2020 Chronic Comment on above: had one a week since september ( 16 weeks now) Administrative/social admission (20 sources) Patient encounter status; Translations: [Nutritional counseling] 06-08-2020 Episodic Comment on above: cologard 2019 pt wishes to do qoyr with dexa- due 2021 cologard pt refused scope Diabetes mellitus without complication (20 sources) Type 2 diabetes mellitus; Translations: [Type II diabetes mellitus, well controlled] Onset: 08-10-2024 08-03-2019 Chronic Diabetes mellitus without complication (20 sources) Abnormal glucose tolerance test; Translations: [Abnormal glucose tolerance test (Renamed from Abnormal glucose tolerance test (GTT))] Resolved: 08-03-2019 08-03-2019 Episodic Diabetes mellitus without complication (20 sources) Diabetes mellitus without complication Disorders of teeth and jaw (20 sources) Jaw pain; Translations: [Jaw pain] Resolved: 11-02-2019 06-22-2019 Episodic Essential hypertension (20 sources) Benign hypertension; Translations: [HTN (hypertension), benign] 08-03-2019 Chronic Genitourinary symptoms and ill-defined conditions (20 sources) Nocturia; Translations: [Nocturia] 09-05-2021 Episodic Comment on above: rev behavioral - no drnking 4hr prior to bed /no caffeine after 2pm -pt refused meds Immunizations and screening for infectious disease (20 sources) Viral screening status; Translations: [Need for hepatitis C screening test] 06-08-2020 Episodic Inflammation; infection of eye (except that caused by tuberculosis or sexually transmitteddisease) (18 sources) Chronic conjunctivitis of left eye; Translations: [Chronic bacterial conjunctivitis of left eye] Resolved: 09-25-2022 06-19-2022 Chronic Influenza (14 sources) Influenza Menopausal disorders (5 sources) Postmenopausal bleeding; Translations: [Postmenopausal bleeding] Onset: 07-08-2024 04-25-2024 Chronic Nausea and vomiting (20 sources) Nausea; Translations: [Nausea] Resolved: 11-02-2019 06-22-2019 Episodic Nonspecific chest pain (20 sources) Chest discomfort; Translations: [Chest pressure] Resolved: 11-02-2019 08-03-2019 Episodic Comment on above: stress test 2019 neg Nutritional deficiencies (20 sources) Vitamin D deficiency; Translations: [Vitamin D deficiency] 08-22-2020 Chronic Nutritional deficiencies (4 sources) Vitamin deficiency; Translations: [Vitamin deficiency, unspecified] 09-24-2017 Episodic Other bone disease and musculoskeletal deformities (20 sources) Osteopenia; Translations: [Osteopenia] 06-22-2019 Episodic Other circulatory disease (18 sources) Abnormal chest sounds; Translations: [Abnormal lung sounds] Resolved: 09-25-2022 06-19-2022 Episodic Other circulatory disease (1 source) Other specified symptoms and signs involving the circulatory and respiratory systems; Translations: [Other specified symptoms and signs involving the circulatory and respiratory systems] Onset: 06-01-2024 Episodic Other connective tissue disease (20 sources) Pain in both feet; Translations: [Foot pain, bilateral] 06-08-2020 Episodic Other connective tissue disease (20 sources) Pain of right calf; Translations: [Pain of right calf] Resolved: 09-05-2021 09-13-2020 Episodic Other connective tissue disease (1 source) Pain in leg, unspecified; Translations: [Pain in leg, unspecified] Onset: 08-10-2024 Episodic Other connective tissue disease (1 source) Iliotibial band syndrome, unspecified leg; Translations: [Iliotibial band syndrome, unspecified leg] Onset: 08-09-2024 Episodic Other diseases of kidney and ureters (8 sources) Cyst of kidney; Translations: [Renal cyst, right] 10-22-2022 Episodic Comment on above: RUQ US 10/01/22: 7.9 c m x 8.3cm x 6.4cm R renal cyst. hepatomegaly, fatty infiltration liver w/ focal fatty sparing the region of GB fossa Other female genital disorders (1 source) Abnormal uterine and vaginal bleeding, unspecified; Translations: [Abnormal uterine and vaginal bleeding, unspecified] Onset: 04-25-2024 Chronic Other gastrointestinal disorders (20 sources) Obstipation; Translations: [Obstipation] Resolved: 03-19-2022 09-13-2020 Episodic Comment on above: she manually disimpa cted herself some Other nervous system disorders (20 sources) Paresthesia; Translations: [Paresthesia] 02-08-2020 Episodic Other non-traumatic joint disorders (20 sources) Hip pain; Translations: [Hip pain, left] 04-02-2022 Episodic Other nutritional; endocrine; and metabolic disorders (20 sources) Body mass index 40+ - severely obese; Translations: [BMI 40.0-44.9, adult] 08-03-2019 Chronic Other nutritional; endocrine; and metabolic disorders (20 sources) Body mass index 30+ - obesity; Translations: [BMI 39.0-39.9,adult] Resolved: 06-17-2021 04-04-2019 Chronic Other nutritional; endocrine; and metabolic disorders (20 sources) Morbid obesity; Translations: [Obesity, morbid, BMI 40.0-49.9] 06-08-2020 Chronic Other nutritional; endocrine; and metabolic disorders (4 sources) Obesity; Translations: [Obesity, unspecified] 07-07-2019 Chronic Other skin disorders (20 sources) Infection of sebaceous cyst; Translations: [Infected sebaceous cyst] Resolved: 06-01-2019 06-01-2019 Episodic Other skin disorders (4 sources) Lesion of skin of face; Translations: [Skin lesion of face] 01-01-2023 Episodic Other upper respiratory infections (18 sources) Viral upper respiratory tract infection; Translations: [Viral URI with cough] 06-19-2022 Episodic Comment on above: supportive care Peripheral and visceral atherosclerosis (20 sources) Peripheral vascular disease; Translations: [PVD (peripheral vascular disease)] 06-08-2020 Chronic Comment on above: mild ischemia -b/l s he refused meds and will monitor and increase exercise to help she is walking all-t he time at her new place and no sx in her legsmild ischemia -b/l she refused meds and will monitor and increase exercise to help Residual codes; unclassified (20 sources) Postmenopausal state; Translations: [Postmenopausal (Renamed from Postmenopausal status)] 06-22-2019 Episodic Comment on above: last dexa 04/21 last dexa 04/23 Residual codes; unclassified (20 sources) Insomnia; Translations: [Insomnia] 05-11-2020 Episodic Residual codes; unclassified (20 sources) Non-smoker; Translations: [Nonsmoker] 06-08-2020 Episodic Residual codes; unclassified (4 sources) Influenza vaccination declined; Translations: [Influenza vaccination declined (Renamed from Refused influenza vaccine)] 01-01-2023 Episodic Skin and subcutaneous tissue infections (20 sources) Cellulitis of groin; Translations: [Cellulitis of groin] Resolved: 06-01-2019 06-01-2019 Episodic Comment on above: abcess less tender, but still present will add another week Spondylosis; intervertebral disc disorders; other back problems (20 sources) Backache; Translations: [Musculoskeletal back pain] 02-13-2021 Episodic Thyroid disorders (20 sources) Hypothyroidism; Translations: [Hypothyroid] Resolved: 01-01-2023 08-03-2019 Chronic Unclassified (20 sources) Chest pressure Unclassified (20 sources) Unclassified (20 sources) Nonsmoker; Translations: [Non-smoker] 08-03-2019 Unclassified (20 sources) BMI 40.0-44.9, adult Unclassified (20 sources) HTN (hypertension), benign Unclassified (20 sources) Nutritional counseling Unclassified (20 sources) Grieving Unclassified (16 sources) Foot pain, bilateral Unclassified (20 sources) PVD (peripheral vascular disease) Unclassified (6 sources) BMI 36.0-36.9,adult Unclassified (12 sources) Musculoskeletal back pain Viral infection (20 sources) Severe acute respiratory syndrome; Translations: [SARS (severe acute respiratory syndrome)] Resolved: 01-01-2023 02-13-2021 Episodic Past or Other Problems Problem Classification Problem Date Documented Date Episodic/Chronic Abdominal pain (20 sources) Right upper quadrant pain; Translations: [RUQ pain] Onset: 11-06-2023 09-25-2022 Episodic Hepatitis (18 sources) Hepatitis Other connective tissue disease (3 sources) Pain in both feet; Translations: [Foot pain, bilateral] 05-11-2020 Other female genital disorders (1 source) Polyp of cervix uteri; Translations: [Polyp of cervix uteri] Onset: 05-06-2024 Episodic Other non-traumatic joint disorders (1 source) Pain in right shoulder; Translations: [Pain in right shoulder] Onset: 04-11-2024 Episodic Other non-traumatic joint disorders (1 source) Pain in right knee; Translations: [Pain in right knee] Onset: 04-11-2024 Episodic Other skin disorders (20 sources) Skin lesion; Translations: [Skin lesion] Resolved: 02-08-2020 06-22-2019 Episodic Unclassified (20 sources) Patient encounter status; Translations: [Encounter for annual general medical examination with abnormal findings in adult] 06-22-2019 Unclassified (20 sources) BMI 39.0-39.9,adult Unclassified (20 sources) Cellulitis of groin Unclassified (20 sources) Pregnancies 06-22-2019 Comment on above: 6 live births, 3 mis carriages Unclassified (20 sources) Abnormal glucose tolerance test (Renamed from Abnormal glucose tolerance test (GTT)) Unclassified (20 sources) Postmenopausal (Renamed from Postmenopausal status) Unclassified (20 sources) Encounter for screening mammogram for breast cancer (Renamed from Encounter for screening mammogram for malignant neoplasm of breast) Unclassified (20 sources) Colon cancer screening Unclassified (18 sources) Annual Medicare Phyiscal WITHOUT abnormal findings (Renamed from Encounter for general adult medical examination without abnormal findings) Unclassified (13 sources) Obesity, morbid, BMI 40.0-49.9 Unclassified (7 sources) Pain of right calf Results Test Name Value Interpretation Reference Range Facility Inital Evaluation (1) - PTon 07-29-2024 Inital Evaluation (1) - PT [facility] [address] [place] [address] / REHABILITATION SERVICES INITIAL EVALUATION MR#: [id number] Acct: [id number] Name: CAMILLE BERNABE Rep #: [id number] : 1950 74 From: Gisselle DEL TORO Referring Dr.: Dr. Beryl Keane DO Status: REG RCR Insurance: [employer]Y INSURANCE Patient's Visit Information Visit Information Visit Information: CAMILLE BERNABE is a 74 year old F referred to Physical Therapy by Dr. Beryl Kaene DO with a diagnosis of IT band tendonitis/leg pain. R/o spinal stenosis. Date of Evaluation: 07/29/24 Physical Therapist: ALVERTO Pierre Visit Plan Frequency: 2x /Week Duration: 2 Months Plan: 2X/ week for 8 weeks for neutral spine or flexion based core stability, stretching of LB into flexion, stretching of LE's (B IT band, piriformis), gait training (increase hip ext and bigger steps...might have to use a rollator for exercise), strengthen B hips especially hip ext HEP; walk at home for endurance with rollator and seated trunk flexion pushing out the rollator Subjective Subjective: Pt reports that she has always trouble walking. 3 years ago she could walk around the loop and now she is huffing and puffing and can not stand very long. She has to do her chores as her own pace. She has always had low blood pressure and eats healthy with protein and vegetable and does not eat sweets. Her R leg in the past has swollen huge compared to the L. She went to many ortho surgeons and no one could give her a reason. Last fall her Dr had her do therapy in the water and her R shoulder was hurting and she got better. The BP and the weight keeps inching up. Dr sent her here this time because the Dr said her leg muscles need strengthened. She is getting an MRI on her back (end of July). She can only walk so far because she is out of breath and she has pain side of both legs and in front of knee and calf. Her is a chiropractor and can not figure her out. Steps are not good and has to go up the L leg first. She can walk in the grocery store if she can lean on the cart. She has no numbness in her legs but sometimes he has tingling but not major. She feels that her legs are weak. Pain Back pain: Pain Intensity (Out of 10): 0 hip pain: Pain Intensity (Out of 10): 0 B leg pain: Pain Intensity (Out of 10): 5 Objective Objective: Gait: walks with small short strides, flexed trunk and step foot does not clear stance leg. Gave the pt the rollator and she was able to take increase strides with less pain in L leg, still some in the R leg Sit to stand: able to get up without using her arms on first attempt Pt is able to heel and toe raise with UE support but increased R knee pain LE MMT: R hip flex 9.4 and L 8.6 R knee ext 20.5 and L 13.3 R knee flex 13.7 and L 14.9 Supine L hip and 11.1 and L 10.6 S/L hip abd R 12.6 and L 11.5 Bridge.. not even 1/4 normal ROM and increase pain in her back Pt struggles with SLR due to pain.... Pt had increase tightness and pain with stretching B IT band in supine Pt struggled with seated trunk flexion so we had her push out a rollator to open up back. Balance/Special Test Scores Lower Extremity Functional Score: 32 Goals Goal 1:: I HEP Goal Time Frame: 6-8 Weeks Goal 2:: Be able to walk back to the treatment rooms without having to stop from the waiting room Goal Time Frame: 6-8 Weeks Goal 3:: Decrease R leg pain by 50% with walking Goal Time Frame: 6-8 Weeks Rehabilitation Potential Rehabilitation Potential: Good Anticipated Interventions Patient/Client Instruction: Educate patient on: Condition and Plan of Care For the Purpose of:: To decrease pain, To increase ROM, To improve nutrient delivery to tissue, To improve muscle performance and motor function, To improve ability to perform ADL's, To increase tolerance to activity/condition/pos ition, To improve performance and independence with ADL's, To decrease level of supervision to perform tasks, To improve ability of physical actions for home/community/work/le isure, To improve gait and locomotor functions, To improve health of tissue, To decrease soft tissue restriction, To increase flexibility/ROM, To improve endurance, To improve balance and To improve safety with gait Therapeutic Exercise to Include: Strength training, Endurance training, Flexibilty training, Gait and locomotor training, Passive ROM and Dynamic Lumbar Stabilization For the Purpose of:: To decrease pain, To increase ROM, To improve nutrient delivery to tissue, To improve ability to perform ADL's, To increase tolerance to activity/condition/pos ition, To improve performance and independence with ADL's, To decrease level of supervision to perform tasks, To improve ability of physical actions for home/community/wo (more content not included)... Normal [facility] Medical Records Technician Office Visit Reporton 07-05-2024 Medical Records Technician Office Visit Report [facility] [address], [address] [place] [address] OFFICE VISIT Date of Service: 07/05/24 MR#: [id number] Acct: [id number] Name: CAMILLE BERNABE Rep #: [id number] : 1950 Provider: Dr. Snehal Brown DO Age/Sex: 74/F [place] [facility] [place]: Signed Intake Vital Signs 04/25/24 11:09 06/21/24 11:45 07/05/24 15:33 07/05/24 15:40 Height 5 ft 3 in 5 ft 3 in 5 ft 3 in 5 ft 3 in Weight: 251 lb 2 oz BMI 44.4 BP 180/93 H Intake Visit Reasons: 2 wk D C polypectomy Buff Wheel Fabricator Required: No Is patient in pain?: No Allergies latex Allergy (Intermediate, Verified 07/05/24 15:32) Rash Medications ???Medication ???Instructions ???Recorded ???Confirmed ???Type Zinc Liver Chelate 2 tab PO TID 07/14/19 07/05/24 His tory catalyn 1 tab PO TID 07/14/19 07/05/24 His tory gotu rui (Centella asiatica) 475 475 mg PO DAILY 04/25/24 07/05/24 History mg capsule medium chain triglycerides 14 15 ml PO QDAY 04/25/24 07/05/24 Hi story gram-120 kcal/15 mL oral oil (MCT Oil) omega [id number]-this oil 600 1 cap PO DAILY 04/25/24 07/05/24 H istory mg-20 mg-500 mcg-800 mcg capsule Is last menstrual period known: No Post menopausal: Yes Patient : No : No PFSH Medical History Wears glasses History of steroid therapy Thyroid disease Arthritis Non-smoker Shortness of breath on exertion Cardiology follow-up encounter History of stress test History of echocardiogram Ingrown toenail Hypothyroidism Essential hypertension Thoracic back pain Obesity HTN (hypertension) Chest pain Vitamin deficiency Back problem Surgical History History of D C History of hysteroscopy History of toe surgery ( 1963) History of removal of cyst Family History Mother Anemia Arthritis Breast cancer CVA (cerebral vascular accident) Father Myocardial infarction Heart disease Grandmother Liver disease Son Anxiety Social History Smoking Status: Never smoker alcohol intake: never substance use type: does not use caffeine: No what type of physical activity do you participate in: none seatbelt use: always do you feel safe at home: Yes additional social 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 She had some pink spotting a few days after surgery but nothing since then. History 9 Elective abortions Hx Para 6 Spontaneous abortions Hx # Term Pregnancies Ectopic pregnancies Hx # Pregnancies Multiple births # of living children ROS ENT ENT: Reports system reviewed and no additional complaints, except as documented Cardio Card: Reports system reviewed and no additional complaints, except as documented Resp Resp: Denies cough, dyspnea or dyspnea on exertion GI GI: Denies abdominal pain, bloating or change in bowel habits : Denies vaginal odor or vaginal pruritus Musc Musc: Reports system reviewed and no additional complaints, except as documented Exam Const General: cooperative, healthy appearing and comfortable Resp Effort Inspection: normal respiratory effort Extrem General: no edema Coding Level of Care Code Off vis,est,level 3 Diagnoses Postmenopausal bleeding N95.0 Thickened endometrium R93.89 Assessment and Plan Assessment and Plan (1) Postmenopausal bleeding: Status: Acute (2) Thickened endometrium: Status: Acute Plan the pathology was discussed with the patient and follow up in one year planned. 07/05/24 1659 Date Snehal Lozano DO Cosigner Signature: Date (if applicable) CC: Normal [facility] Discharge Instructionon 06-01 Discharge Instruction [facility] Medical Records Department [address] [place] [address] Instructions for Home/Discharge Instructions 06/21/24 1214 MR#: [id number] Acct: [id number] Name: CAMILLE BERNABE Rep #: [id number] : 1950 74 From: Snehal Lozano DO PCP: Dr. Beryl Keane DO Status:REG [facility] Discharge Instructions Diet Discharge Diet: No restrictions DC O2, CPAP, BIPAP needs Home O2 Discharge instructions: No Dressing / Incision Discharge Activity: Return to Normal Activity, May Shower and May Take a Tub Bath (after 1 week) May resume sexual activity in: 1-2 weeks Weight Bearing Status: Weight bearing as tolerated Lifting Restrictions: none Dressing / Incision Call your doctor if you observe: Fever of 101 or Higher, Using more than 1 pad per hour, Shortness of breath and Uncontrolled pain Follow Up Care Please Follow Up With: Snehal Lozano DO When: Call [phone] to schedule appointment. Test Results: Test results from this visit will be discussed in further detail at your follow-up appointment, if applicable. Discharge Plan Admission Primary Reason for Your Visit: hysteroscopy dilation and curettage Attending Provider: Snehal Lozano Primary Care Provider: Beryl Keane Instructions Print Language: Stateless Discharge Orders/Prescriptions Prescriptions: New ibuprofen 800 mg tablet 800 mg PO Q8H PRN (Reason: pain) Qty: 30 0RF Continued catalyn 1 tab PO TID Zinc Liver Chelate 2 tab PO TID MCT Oil 14 gram-120 kcal/15 mL oil 15 ml PO QDAY -[id number]- fish oil [id number] [id number]-sm-poc-mcg capsule 1 cap PO DAILY gotu rui (Centella asiatica) 475 mg capsule 475 mg PO DAILY Other Ambulatory Orders: 12 Lead EKG (Routine) Location: None Selected Ordered By: Dr. Snehal Lozano Referrals / Follow Up: Beryl Keane DO [Primary Care Provider] - Disposition Disposition (needs filled in before D/C Order can be placed): Home, Self Care 06/21/24 1215 Snehal Lozano DO CC: Dr. Beryl Keane DO Signed Normal [facility] Immunohistochemical Stainson 06-21-2024 Immunohistochemical Stains ---- Patient Age/Sex Location Account Attending Physician ---- CAMILLE BENRABE 74/F [facility] [id number] Oli Craft ---- Specimen: [id number] Received: 06/21/24 Status: OG Howell Num: [id number] Spec Type: ENDOM BX/C Subm Dr: Dr. Snehal Lozano, DO HEAD OPERATION: Hysteroscopy, D C, polypectomy PRE-OP DIAGNOSIS: Postmenopausal bleeding, thickened endometrium TISSUE SUBMITTED: A- Cervical polyp, B- Endometrial curettings ---- MICROSCOPIC DIAGNOSIS A. Uterus, cervix, polyp, polypectomy: * Benign polyp with endometrial and endocervical features, multiple fragments - see Comment. * Scant squamous cervical mucosa with reactive change. B. Uterus, endometrium, dilation and curettage: * Fragments of myometrium suggestive of leiomyoma. * Fragments of polyp with endometrial and endocervical features - see Comment. * Scant endometrium with cystic atrophy. COMMENT A, B) The IHC for CD10 is positive (A1, B1, B2) which, although not specific, does support the histologic impression of endometrial and endocervical polyp(s), possibly of lower uterine segment origin. MICROSCOPIC DESCRIPTION Slides are reviewed. All matched controls reacted appropriately. These tests were developed and their performance characteristics determined by [facility]. They may not have been cleared or approved by the U.S. Food and Drug Administration. The FDA has determined that such clearance or approval is not necessary.??? The above immunohistochemical/du alISH???markers are ordered and reviewed by the Pathologist. GROSS DESCRIPTION A. Received in formalin in a container labeled with the patient's name, date of , and cervical polyp are multiple myers-pink fragments of soft tissue admixed with mucus, measuring 2.0 x 2.0 x 0.6 cm in aggregate. Submitted in toto in A1-2. B. Received in formalin in a container labeled with the patient's name, date of , and endocervical curettings are multiple red-myers fragments of soft tissue admixed with a scant amount of blood and mucus, measuring 2.5 x 1.5 x 1.0 cm in aggregate. Submitted in toto in B1-2. ---- Patient Age/Sex Location Account Attending Physician ---- CAMILLE BERNABE 74/F [facility] [id number] Oli Craft ---- SMB 06/29/2024 CPT:[id number],88 341 ---- Patient Age/Sex Location Account Attending Physician ---- CAMILLE BERNABE 74/F [facility] [id number] Oli Craft ---- Signed (signature on file) Dr. Naye Martin MD 06/29/24 3343 ---- Normal [facility] Comment on above: Performed By: #### P MILIND #### [facility] [address] [facility] [place], [place], [address] MR/[email or web address].[email or web address] 06-21-2024 MR/POSTOP.[facility] Medical Records Department [address] [place] [address] Anesthesia Postop Eval I 06/21/24 1350 MR#: [id number] Acct: [id number] Name: CAMILLE BERNABE Rep #: [id number] : 1950 74 From: Allan Hoffmann LOSS CLAIM CLERK PCP: Dr. Beryl Keane, DO Status:REG [facility] Y Race: C Location: [place] [address] Anesthesia: Postop Eval I Current Vital Signs Temperature: 97 F Pulse Rate: 72 Blood Pressure: 93/50 Respiratory Rate: 16 Pulse Ox: 95 Oxygen Delivery Method: Room Air Assessment Airway patent: Yes Spontaneous unlabored respirations: Yes Mental status: Awake and Calm nausea: No Vomiting: No Anesthesia Complication: No Fluid Hydration Crystalloid volume administer (ml): 20 Total IV fluid infused: 20 Progress Note Anesthesia document: Postop Eval 1 completed: Yes 06/21/24 1351 Date Allan Hoffmann LOSS CLAIM CLERK Cosigner Signature: Date CC: Signed Normal [facility] MR/[id number] 06-21-2024 [facility] Medical Records Department [address] [place] [address] Anesthesia Postop Eval II 06/21/242019 MR#: [id number] Acct: [id number] Name: CAMILLE BERNABEN Rep #: [id number] : 1950 74 From: Hernan Rodriguez MD PCP: Dr. Beryl Keane, DO Status:DEP [facility] Y Race: C Location: [facility] Anesthesia Postop Eval I Sum Postop Eval Completion status Anesthesia document: Postop Eval 1 completed: Yes Anesthesia Postop Eval I Summary Anesthesia Postop Eval I Summary: Anesthesia Postop Eval I: Assessment Summary Airway patent Yes 06/21/24 13:51 [email or web address] Spontaneous unlabored Yes 06/21/24 13:51 [email or web address] respirations Mental status Awake,Calm 06/21/24 13:51 [email or web address] nausea No 06/21/24 13:51 [email or web address] Vomiting No 06/21/24 13:51 [email or web address] Anesthesia Postop Eval I: Fluid Summary Crystalloid volume administer 20 06/21/24 13:51 [email or web address] (ml) Colloids volume administered ( ml) Blood Product volume administered (ml) Total IV fluid infused 20 06/21/24 13:51 [email or web address] Anesthesia Postop Eval I: Summary Notes Anesthesia Complication No 06/21/24 13:51 [email or web address] Anesthesia Complication Comment: Post-operative progress note Anesthesia: Postop Eval II Evaluation Mental status: Awake and Calm Pain Level: 2 nausea: No Vomiting: No Complications Anesthesia Complication: No 06/21/242020 Date Hernan Rodriguez MD Cosigner Signature: Date CC: Signed Normal [facility] Operative Reporton Operative Report [facility] Medical Records Department [address] [place] [address] Operative Report 06/21/24 1346 MR#: [id number] Acct: [id number] Name: CAMILLE BERNABE Rep #: [id number] : 1950 74 From: Snehal Lozano DO PCP: Dr. Beryl Keane DO Status:[facility] Location: [place] [address] Problems Associated Problem List Diagnoses (1) Thickened endometrium: (2) Postmenopausal bleeding: Multi Select Codes Urinary/Genital Urinary/Genital CPT Codes: 68866 Hysteroscopy,EMC, Polypectomy and 09431 Hysteroscopic myomectomy Operative Report (Standard) Operative Information Date of Procedure: 06/21/24 Pre-Operative Diagnosis: Thickened endometrium, postmenopausal state Post-Operative Diagnosis: Thickened endometrium, postmenopausal state, endometrial polyp and fibroid Surgery/Procedure Performed: hysteroscopy, dilation and curettage, polypectomy and myomectomy pharmacists: No Type of Anesthesia: MAC/Supplemental/Local RN Documented Start/Stop Times: Operation Date: 06/21/24 12:45 Case Time Into Pre-Op 06/21/24 11:17 Out of Pre-Op 06/21/24 12:33 Anesthesia Start 06/21/24 12:38 Into Room 06/21/24 12:38 Procedure Start 06/21/24 13:03 Procedure End 06/21/24 13:30 Anesthesia End 06/21/24 13:39 Out of Room 06/21/24 13:39 Procedure Start Time: 13:03 Procedure Stop Time: 13:30 Select all DRAINS/GRAFTS/IMPLANTS that apply: None Estimated Blood Loss: 30cc Specimen collected: Yes Description of specimen(s) removed: endocervical polyp and endometrial fibroid and curetting's Description of surgery: Patient was prepped and draped in a normal sterile fashion under MAC anesthesia. A weighted speculum was placed in the vagina and there was noted a large rectocele. A bivalve speculum was used for better visualization and the anterior lip of the cervix was grasped with a single-tooth tenaculum. A paracervical block was placed with 1% lidocaine. Cervix was progressively dilated to allow passage of a 5 mm hysteroscope. The lining was fully visualized and noted to have a large fibroid at the fundal aspect. Uterine sounded to 10 cm. Curettage was performed first in the cervix to remove a polyp appearing structure. This was sent to pathology. THe symphion device was then used to remove the fundal fibroid in small segments. This was also passed off for pathology analysis. fluid deficit was found to be 200cc. All instruments were removed from the vagina and excellent hemostasis was noted. Patient was awoken and taken to recovery in stable condition. Surgical Findings: cervical polyp and endometrial fibroid Complications Complications: No Admit VTE Documentation VTE Present on Admission: No VTE Mechan Device Prophylaxis: SCD's VTE Pharm Prophylaxis ordered?: No 06/21/24 1351 Cosigner Signature (if applicable): CC: Dr. Snehal Lozano DO; Dr. Beryl Keane DO Signed Normal [facility] 12 Lead EKGon 06-14-2024 12 Lead EKG [facility] [address] [place] [address] 12 Lead EKG 06/14/24 1001 MR#: [id number] Acct: [id number] Name: CAMILLE BERNABE Rep #: [id number] : 1950 74 From: Link Jeffrey MD Attending Dr: Dr. Snehal Lozano DO Statu s: PRE SDC Ordering Dr: Snehal Lozano DO Date: 5 Location: [facility] Sex: F C Admitted: Test Reason : PREOP Blood Pressure : */* mmHG Vent. Rate : 86 BPM Atrial Rate : 86 BPM P-R Int : 156 ms QRS Dur : 84 ms QT Int : 408 ms P-R-T Axes : 63 45 64 degrees QTcB Int : 488 ms Normal sinus rhythm Minor ST changes Borderline Confirmed by Link Jeffrey ([id number]), assignment desk editor RITA EVERETT ([id number]) on 2024 10:04:47 AM Referred By: Snehal Lozano Confirmed By: Link Jeffrey 06/15/24 1004 Date Link Jeffrey MD CC: Dr. Snehal Lozano DO; Dr. Beryl Keane DO Signed Normal [facility] CBC-Complete Blood Cnt No Di ffon 06-14-2024 Erythrocyte distribution width (RBC) [Ratio] 14.0 % Normal 11.6-14.6 [facility] Comment on above: Performed By: #### L 100.0500, L500.4050, BTSPAT #### [facility] Laboratory [address] [place], [address] ( Hematocrit (Bld) [Volume fraction] 42.5 % Normal 37-47 [facility] Comment on above: Performed By: #### L 100.0500, L500.4050, BTSPAT #### [facility] [address] [place], [address] Hemoglobin (Bld) [Mass/Vol] 13.8 g/dL Normal 12.0-15.0 [facility] Comment on above: Performed By: #### L 100.0500, L500.4050, BTSPAT #### [facility] [address] [place], [address] MCH (RBC) [Entitic mass] 28.6 pg Normal 27.0-32.0 [facility] Comment on above: Performed By: #### L 100.0500, L500.4050, BTSPAT #### [facility] [address] [place], [address] MCHC (RBC) [Mass/Vol] 32.5 g/dL Normal 32-36 [facility] Comment on above: Performed By: #### L 100.0500, L500.4050, BTSPAT #### [facility] [address] [place], [address] MCV (RBC) [Entitic vol] 88.2 fL Normal 81-99 [facility] Comment on above: Performed By: #### L 100.0500, L500.4050, BTSPAT #### [facility] [address] [place], [address] Platelet mean volume (Bld) [Entitic vol] 9.6 fL Normal 6.2-12.0 [facility] Comment on above: Performed By: #### L 100.0500, L500.4050, BTSPAT #### [facility] [address] [place], [address] Platelets (Bld) [#/Vol] 330 10*3/uL Normal 150-450 [facility] Comment on above: Performed By: #### L 100.0500, L500.4050, BTSPAT #### [facility] [address] [place], [address] RBC (Bld) [#/Vol] 4.82 10*6/uL Normal 4.2-5.4 [facility] Comment on above: Performed By: #### L 100.0500, L500.4050, BTSPAT #### [facility] [address] [place], [address] RDW SD 45.1 fl High 35.1-43.9 [facility] Comment on above: Performed By: #### L 100.0500, L500.4050, BTSPAT #### [facility] [address] [place], [address] WBC (Bld) [#/Vol] 6.5 10*3/uL Normal 4.4-11.0 [facility] Comment on above: Performed By: #### L 100.0500, L500.4050, BTSPAT #### [facility] [address] [place], [address] Comprehensive Met[facility] 06-14-2024 Albumin [Mass/Vol] 4.2 g/dL Normal 3.4-4.8 [facility] Comment on above: Performed By: #### L 100.0500, L500.4050, BTSPAT ####[facility] [address] [place], [address] Albumin/Globulin [Mass ratio] 1.3 {ratio} Normal 0.9-2.4 [facility] Comment on above: Performed By: #### L 100.0500, L500.4050, BTSPAT ####[facility] [address] [place], [address] ALK PHOS 106 U/L High 35-104 [facility] Comment on above: Performed By: #### L 100.0500, L500.4050, BTSPAT ####[facility] [address] [place], [address] ALT [Catalytic activity/Vol] 16 U/L Normal <=34 [facility] Comment on above: Performed By: #### L 100.0500, L500.4050, BTSPAT ####[facility] [address] [place], [address] AST [Catalytic activity/Vol] 22 U/L Normal <=31 [facility] Comment on above: Result Comment: Hemo lysis present, Results??could be affected. ?? Performed By: #### L 100.0500, L500.4050, BTSPAT ####[facility] [address] [place], [address] Bilirubin [Mass/Vol] 0.25 mg/dL Normal 0.00-1.30 [facility] Comment on above: Performed By: #### L 100.0500, L500.4050, BTSPAT ####[facility] [address] [place], [address] BUN/CRE 18.4 RATIO Normal 10-20 [facility] Comment on above: Performed By: #### L 100.0500, L500.4050, BTSPAT ####[facility] [address] [place], [address] Calcium [Mass/Vol] 9.5 mg/dL Normal 7.6-11.0 [facility] Comment on above: Performed By: #### L 100.0500, L500.4050, BTSPAT ####[facility] [address] [place], [address] Chloride [Moles/Vol] 101 mmol/L Normal 98-108 [facility] Comment on above: Performed By: #### L 100.0500, L500.4050, BTSPAT ####[facility] [address] [place], [address] CO2 [Moles/Vol] 26.8 mmol/L Normal 21.0-32.0 [facility] Comment on above: Performed By: #### L 100.0500, L500.4050, BTSPAT ####[facility] [address] [place], [address] Creatinine [Mass/Vol] 0.73 mg/dL Normal 0.70-1.20 [facility] Comment on above: Performed By: #### L 100.0500, L500.4050, BTSPAT ####[facility] [address] [place], [address] GAP 11 Normal 5-15 [facility] Comment on above: Performed By: #### L 100.0500, L500.4050, BTSPAT ####[facility] [address] [place], [address] GFR/1.73 sq M.predicted among non-blacks MDRD (S/P/Bld) [Vol rate/Area] 86 mL/min/{1.73_m2} Normal >60 [facility] Comment on above: Result Comment: mL/m in/1.73m2 CKD-EPI Creatinine Equation (2020) Performed By: #### L 100.0500, L500.4050, BTSPAT ####[facility] [address] [place], [address] Globulin (S) [Mass/Vol] 3.1 g/dL Normal 2.2-4.2 [facility] Comment on above: Performed By: #### L 100.0500, L500.4050, BTSPAT ####[facility] [address] [place], [address] Glucose [Mass/Vol] 143 mg/dL High 70-99 [facility] Comment on above: Performed By: #### L 100.0500, L500.4050, BTSPAT ####[facility] [address] [place], [address] Potassium [Moles/Vol] 4.3 mmol/L Normal 3.3-5.1 [facility] Comment on above: Result Comment: Hemo lysis present, Results??could be affected. ?? Performed By: #### L 100.0500, L500.4050, BTSPAT ####[facility] [address] [place], [address] Sodium [Moles/Vol] 139 mmol/L Normal 133-145 [facility] Comment on above: Performed By: #### L 100.0500, L500.4050, BTSPAT ####[facility] [address] [place], [address] T PROT 7.3 g/dL Normal 5.9-8.4 [facility] Comment on above: Performed By: #### L 100.0500, L500.4050, BTSPAT ####[facility] [address] [place], [address] Urea nitrogen [Mass/Vol] 14 mg/dL Normal 4-19 [facility] Comment on above: Performed By: #### L 100.0500, L500.4050, BTSPAT ####[facility] [address] [place], [address] MR/PATEladia 06-14-2024 MR/PAT.[facility] Medical Records Department [address] [place] [address] PAT - Anesthesia 06/14/24 1518 MR#: [id number] Acct: [id number] Name: CAMILLE BERNABE Rep #: [id number] : 1950 74 From: Hernan Rodriguez MD PCP: Dr. 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 When Was Last Pacemaker Check QUESTION #4 FULL TEXT: You/Your Family Experience fever (hyperthermia) with Anesthesia Last Oral Intake Last Oral intake: Last Oral Intake NPO since Meds taken in AM with sips of water? 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 Female Yes 06/09/24 11:32 HX of Motion Sickness No 06/09/24 11:32 HX of N/V After Surgery No 06/09/24 11:32 Non-Smoker Yes 06/09/24 11:32 Duration of Surgery greater No 06/09/24 11:32 than 60 minutes Number of Risk Factors 2 06/09/24 11:32 PONV Score Moderate Risk 06/09/24 11:32 Height Weight Height Weight: Anesthesia: Height Weight Height 5 ft 3 in 04/25/24 11:09 Respiratory Assessment Respiratory Assessment - duplicator punch set up operator: Respiratory Tract Infection Hx - duplicator punch set up operator Hx Respiratory Tract Infection No 06/09/24 11:32 STOP Sleep Apnea STOP Sleep Apnea - duplicator punch set up operator: STOP Sleep Apnea - duplicator punch set up operator Hx Hypertension No 06/09/24 11:32 Hx Sleep Apnea No 06/09/24 11:32 CPAP BIPAP Do you snore loudly (louder No 06/09/24 11:32 than talking or can be heard Do you often feel tired/ No 06/09/24 11:32 fatigued/ sleepy during daytime? Has anyone observed you stop No 06/09/24 11:32 breathing during sleep? STOP Results Negative 06/09/24 11:32 QUESTION #5 FULL TEXT : Do you snore loudly (louder than talking or can be heard through closed doors)? 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 Specify any problems Hx of Preganancy in last 3 N/A 06/09/24 11:32 Months Nurse Filling Out Transfusion NBUCHER 06/09/24 11:32 Questions: Date: 06/09/24 06/09/24 11:32 Time: 11:35 06/09/24 11:32 Patient unable to answer at this time (ie. confused, unrespo /Reproduction History /Reproductive History - duplicator punch set up operator: /Reproductive Hx- duplicator punch set up operator Hx Now No 06/09/24 11:32 Gestational Age (in weeks): EDC: Hx Hx Para Hx Section SAB No 06/09/24 11:32 [facility] Medical History (Updated 06/09/24 @ 17:[address] Snehal Lozano, DO) Wears glasses History of steroid therapy Thyroid disease Arthritis Non-smoker Shortness of breath on exertion Cardiology follow-up encounter History of stress test History of echocardiogram Ingrown toenail Hypothyroidism Essential hypertension Thoracic back pain Obesity HTN (hypertension) Chest pain Vitamin deficiency Back problem Home Medications ???Medication ???Instructions ???Recorded ???Last Taken ???Type Zinc Liver Chelate 2 tab PO TID 07/14/19 Unknown Hist ory catalyn 1 tab PO TID 07/14/19 Unknown Hist ory gotu rui (Centella asiatica) 475 475 mg PO DAILY 04/25/24 Unknown History mg capsule medium chain triglycerides 14 15 ml PO QDAY 04/25/24 Unknown His tory gram-120 kcal/15 mL oral oil (MCT Oil) omega [id number] oil 600 1 cap PO DAILY 04/25/24 Unknown Hi story mg-20 mg-500 mcg-800 mcg capsule A (more content not included)... Normal [facility] Type AND Screen - PAT ONLYon 06-14-2024 Ab SCREEN GEL Negative Normal [facility] Comment on above: Order Comment: Reaso n for Laboratory Test [id number], D C Performed By: #### L 100.0500, L500.4050, BTSPAT ####[facility] [address] [place], [address] Medical Records Technician Office Visit Reporton 06-09-2024 Medical Records Technician Office Visit Report [facility] [address], [address] [place] [address] OFFICE VISIT Date of Service: 06/09/24 MR#: [id number] Acct: [id number] Name: CAMILLE BERNABE Rep #: [id number] : 1950 Provider: Dr. 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 Wheel Fabricator Required: No Is patient in pain?: No Allergies latex Allergy (Intermediate, Verified 06/09/24 11:30) Rash Medications ???Medication ???Instructions ???Recorded ???Confirmed ???Type Zinc Liver Chelate 2 tab PO TID 07/14/19 06/09/24 His tory catalyn 1 tab PO TID 07/14/19 06/09/24 His tory yaima rui (Centella asiatica) 475 475 mg PO DAILY 04/25/24 06/09/24 History mg capsule medium chain triglycerides 14 15 ml PO QDAY 04/25/24 06/09/24 Hi story gram-120 kcal/15 mL oral oil (MCT Oil) omega 6-[id number]-BG-rgur oil 600 1 cap PO DAILY 04/25/24 06/09/24 H istory mg-20 mg-500 mcg-800 mcg capsule Is last menstrual period known: No Post menopausal: Yes Patient : No : No PFSH Medical History (Updated 06/09/24 @ 17:[address] Snehal Lozano DO) Wears glasses History of steroid therapy Thyroid disease Arthritis Non-smoker Shortness of breath on exertion Cardiology follow-up encounter History of stress test History of echocardiogram Ingrown toenail Hypothyroidism Essential hypertension Thoracic back pain Obesity HTN (hypertension) Chest pain Vitamin deficiency Back problem Surgical History (Updated 06/09/24 @ 11:41 by Sera Perez) History of toe surgery ( 1963) History of removal of cyst Family History Mother Anemia Arthritis Breast cancer CVA (cerebral vascular accident) Father Myocardial infarction Heart disease Grandmother Liver disease Son Anxiety Social History Smoking Status: Never smoker alcohol intake: never substance use type: does not use caffeine: No what type of physical activity do you participate in: none seatbelt use: always do you feel safe at home: Yes 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 She saw her pcp, Dr. Burnham who referred her to us. She states that the spotting started a few months ago and is off and on. She takes multiple OTC supplements, one of which is a protomorphogen blend of tissue from animals that includes organs including the ovaries. Her mother had large fibroids, the size of soccer balls. She wonders if fibroids could be causing the problems. She consents to an endometrial biopsy today. ultrasound in January is as follows: FINDINGS: The uterus is anteverted and is in a midline position. The uterus measures 10.0 x 10.3 x 6.9 cm. Normal uterine cervix. The endometrium measures 8 mm in thickness, and is fluid distended. There is no demonstrated endometrial mass. 5.4 cm exophytic hypoechoic mass in the anterior fundus the uterus consistent with a subserosal fibroid. Another 5.1 cm round hypoechoic mass in the fundus the uterus consistent with an intramural fibroid. The ovaries are not visualized.. There is no fluid in the cul-de-sac. She is scheduled for a hysteroscopy D C soon. History 9 Elective abortions Hx Para 6 Spontaneous abortions Hx # Term Pregnancies Ectopic pregnancies Hx # Pregnancies Multiple births # of living children ROS Const ROS Unobtainable: All systems reviewed are unremarkable except as noted in H Resp Resp: Reports system reviewed and no additional complaints, except as documented; Denies cough GI GI: Reports as per HPI Psych Psych: Reports system reviewed and no additional complaints, except as documented Exam Const General: cooperative, healthy appearing, comfortable and no acute distress Resp Effort Inspection: normal respiratory effort Skin General: no rashes or lesions noted Psych Appearance: grossly normal Speech and Movement: speech and movement normal Coding Level of Care Code Off vis,est,level 4 Diagnoses Postmenopausal bleeding N95.0 Thickened endometrium R93.89 Assessment and Plan Assessment and Plan (1) Postmenopausal bleeding: Status: Acute (2) Thickened endometrium: Status: Acute Plan After discussing the patient's diagnosis and treatment plan options, patient wishes to proceed with surgical management. I have discussed with the patie (more content not included)... Normal [facility] Echo Completeon 05-30-2024 Echo Complete [facility] [address] [place] [address] Echo Complete 05/30/24 1359 MR#: [id number] Acct: [id number] Name: CAMILLE BERNABE Rep #: [id number] : 1950 73 From: Larry Hays MD Attending Dr: Dr. Beryl Keane, Status: R EG CLI Ordering Dr: Beryl Keane DO Date: 05/30/24 Location: [facility] Sex: F C Admitted: Reason For Study Reason For Study: Dyspnea Procedure This was a 2D Doppler, Color Flow transthoracic echocardiogram. The study was technically difficult. Exam performed in department. Left Ventricle Normal LV size. Left ventricular systolic function is normal. The left ventricular ejection fraction is 60 %. Stage 1 diastolic dysfunction. No regional wall motion abnormalities noted. Right Ventricle Normal RV size. Normal systolic function. Atria Normal left atrium. Normal right atrium. Mitral Valve There is mild mitral annular calcification. Tricuspid Valve Normal tricuspid valve. Aortic Valve Trisinus/trileaflet aortic valve. Pulmonic Valve The pulmonic valve is not well visualized. Great Vessels Normal aortic root. The pulmonary artery is normal size. Normal inferior vena cava. Pericardium/Pleural No pericardial effusion. MMode/2D Measurements Calculations LVIDd: 4.9 cm IVSd: 1.1 cm Ao root diam: 2.9 cm LVIDs: 3.2 cm LVPWd: 0.87 cm RVDd: 3.6 cm FS: 35.9 % LAV(MOD-bp): 57.2 ml LVAd ap4: 27.7 cm2 SV(MOD-sp4): 49.4 ml LAV(MOD-bp) Indexed: 27.4 ml/m2 LVLd ap4: 7.3 cm SI(MOD-sp4): 23.6 ml/m2 LAV(MOD-sp2): 66.0 ml EDV(MOD-sp4): 83.7 ml LAV(MOD-sp4): 46.4 ml EDV(sp4-el): 89.3 ml LVAs ap4: 15.0 cm2 LVLs ap4: 5.8 cm ESV(MOD-sp4): 34.4 ml ESV(sp4-el): 32.7 ml EF(MOD-sp4): 59.0 % EF(sp4-el): 63.4 % SV(sp4-el): 56.7 ml LA A4 area: 18.5 cm2 LA dimension(2D): 4.7 cm RA A4 area: 13.9 cm2 TAPSE: 1.8 cm Time Measurements MV dec time: 0.26 sec Doppler Measurements Calculations MV E max liz: 60.6 cm/sec Lat Peak E' Liz: 9.8 cm/sec Med Peak E' Liz: 5.6 cm/sec MV A max liz: 86.6 cm/sec E/E' lat: 6.2 E/E' med: 10.8 MV E/A: 0.70 MV V2 max: 102.9 cm/sec MV P1/2t max liz: 68.9 cm/sec Ao V2 max: 146.0 cm/sec MV max P.2 mmHg MV P1/2t: 87.7 msec Ao max P.5 mmHg MV V2 mean: 56.5 cm/sec Ao V2 mean: 94.2 cm/sec MV mean P.4 mmHg MV dec slope: 230.1 cm/sec2 Ao mean P.1 mmHg MV V2 VTI: 21.2 cm MVA(P1/2t): 2.5 cm2 Ao V2 VTI: 29.5 cm AV (velocity ratio): 0.81 LV V1 max: 117.0 cm/sec PA V2 max: 107.7 cm/sec LV V1 max P.5 mmHg LV V1 mean P.7 mmHg LV V1 mean: 76.5 cm/sec LV V1 VTI: 23.9 cm ECHO/Echo Complete Interpretation Summary Normal LV size. Left ventricular systolic function is normal. The left ventricular ejection fraction is 60 %. There is mild mitral annular calcification. Stage 1 diastolic dysfunction. Ordering Physician: Beryl Keane Referring Physician: Beryl Keane Performed By: Ted Otero RCS 05/30/24 1454 Date Larry Hays MD CC: Dr. eBryl Keane DO Date Dictated: 05/30/24 135 Date Transcribed: 05/30/241453 Commissioning Agent: Signed Normal [facility] Echocardiogram study reportO rdered By: Larry Hays on 05-30-2024 Study report [facility] [address] [place] [address] Echo Complete 05/30/24 1359 MR#: [id number] Acct: [id number] Name: CAMILLE BERNABE Rep #:[id number] : 1950 73 From: Larry Baird Attending Dr: Dr. Beryl Keane, Status: REG CLI Ordering Dr: Beryl Keane DO Date: 05/30/24 Location: [facility] Sex: F C Admitted: Reason For Study Reason For Study: Dyspnea Procedure This was a 2D Doppler, Color Flow transthoracic echocardiogram. The study was technically difficult. Exam performed in department. Left Ventricle Normal LV size. Left ventricular systolic function is normal. The left ventricular ejection fraction is 60 %. Stage 1 diastolic dysfunction. No regional wall motion abnormalities noted. Right Ventricle Normal RV size. Normal systolic function. Atria Normal left atrium. Normal right atrium. Mitral Valve There is mild mitral annular calcification. Tricuspid Valve Normal tricuspid valve. Aortic Valve Trisinus/trileaflet aortic valve. Pulmonic Valve The pulmonic valve is not well visualized. Great Vessels Normal aortic root. The pulmonary artery is normal size. Normal inferior vena cava. Pericardium/Pleural No pericardial effusion. MMode/2D Measurements & Calculations LVIDd: 4.9 cm IVSd: 1.1 cm Ao root diam: 2.9 cm LVIDs: 3.2 cm LVPWd: 0.87 cm RVDd: 3.6 cm FS: 35.9 % LAV(MOD-bp): 57.2 ml LVAd ap4: 27.7 cm2 SV(MOD-sp4): 49.4 ml LAV(MOD-bp) Indexed: 27.4 ml/m2 LVLd ap4: 7.3 cm SI(MOD-sp4): 23.6 ml/m2 LAV(MOD-sp2): 66.0 ml EDV(MOD-sp4): 83.7 ml LAV(MOD-sp4): 46.4 ml EDV(sp4-el): 89.3 ml LVAs ap4: 15.0 cm2 LVLs ap4: 5.8 cm ESV(MOD-sp4): 34.4 ml ESV(sp4-el): 32.7 ml EF(MOD-sp4): 59.0 % EF(sp4-el): 63.4 % SV(sp4-el): 56.7 ml LA A4 area: 18.5 cm2 LA dimension(2D): 4.7 cm RA A4 area: 13.9 cm2 TAPSE: 1.8 cm Time Measurements MV dec time: 0.26 sec Doppler Measurements & Calculations MV E max liz: 60.6 cm/sec Lat Peak E' Liz: 9.8 cm/sec Med Peak E' Liz: 5.6 cm/sec MV A max liz: 86.6 cm/sec E/E' lat: 6.2 E/E' med: 10.8 MV E/A: 0.70 MV V2 max: 102.9 cm/sec MV P1/2t max liz: 68.9 cm/sec Ao V2 max: 146.0 cm/sec MV max P.2 mmHg MV P1/2t: 87.7 msec Ao max P.5 mmHg MV V2 mean: 56.5 cm/sec Ao V2 mean: 94.2 cm/sec MV mean P.4 mmHg MV dec slope: 230.1 cm/sec2 Ao mean P.1 mmHg MV V2 VTI: 21.2 cm MVA(P1/2t): 2.5 cm2 Ao V2 VTI: 29.5 cm AV (velocity ratio): 0.81 LV V1 max: 117.0 cm/sec PA V2 max: 107.7 cm/sec LV V1 max P.5 mmHg LV V1 mean P.7 mmHg LV V1 mean: 76.5 cm/sec LV V1 VTI: 23.9 cm ECHO/Echo Complete Interpretation Summary Normal LV size. Left ventricular systolic function is normal. The left ventricular ejection fraction is 60 %. There is mild mitral annular calcification. Stage 1 diastolic dysfunction. Ordering Physician: Beryl Keane Referring Physician: Beryl Keane Performed By: Ted Otero [facility] 05/30/24 145 Date _ Larry Hays MD CC: Dr. Beryl Keane DO ~ Date Dictated: 05/30/24 1359 Date Transcribed: 05/30/241453 Commissioning Agent: Signed [facility] Work Phone: Surgical pathology reportOrd ered By: Juvenal Baig on 04-27-2024 Surgical pathology study [facility] Other Medical Records Technician Office Visit Reporton 04-25-2024 Medical Records Technician Office Visit Report [facility] [address], [address] [place] [address] OFFICE VISIT Date of Service: 04/25/24 MR#: [id number] Acct: [id number] Name: CAMILLE BERNABE Rep #: [id number] : 1950 Provider: Dr. Snehal Brown DO Age/Sex: 73/F [place] [facility] [place]: Signed Intake Vital Signs 06/20/21 09:23 04/12/24 08:47 04/25/24 11:09 Height 5 ft 3 in 5 ft 3 in 5 ft 3 in Weight: 246 lb 4 oz BMI 43.6 BP 166/81 H Intake Visit Reasons: ENLARGED FIBROID UTERUS (CIM) [employer] Wheel Fabricator Required: No Is patient in pain?: No Allergies latex Allergy (Intermediate, Verified 04/25/24 11:20) Rash Medications ???Medication ???Instructions ???Recorded ???Confirmed ???Type Zinc Liver Chelate 2 tab PO TID 07/14/19 04/25/24 His tory catalyn 1 tab PO TID 07/14/19 04/25/24 His tory kadyu rui (Centella asiatica) 475 mg PO 04/25/24 04/25/24 History mg capsule medium chain triglycerides 14 15 ml PO QDAY 04/25/24 04/25/24 Hi story gram-120 kcal/15 mL oral oil (MCT Oil) omega 2-A1-[id number]-S-GY-cikh oil 600 cap PO 04/25/24 04/25/24 History mg-20 mg-500 mcg-800 mcg capsule Post menopausal: No Patient : No : No PFSH Medical History (Updated 04/25/24 @ 12:[address] Snehal Lozano DO) Ingrown toenail Hypothyroidism Essential hypertension Thoracic back pain Obesity HTN (hypertension) Chest pain Vitamin deficiency Back problem Surgical History History of removal of cyst Family History Mother Anemia Arthritis Breast cancer CVA (cerebral vascular accident) Father Myocardial infarction Heart disease Grandmother Liver disease Son Anxiety Social History (Updated 04/25/24 @ 11:25 by Mehreen Rashid) Smoking Status: Never smoker alcohol intake: never substance use type: does not use caffeine: No what type of physical activity do you participate in: none seatbelt use: always do you feel safe at home: Yes additional social history: - Ramu (chiropractor) HPI ENLARGED FIBROID UTERUS (CIM) Details: CAMILLE BERNABE is a 73 year old who presents for postmenopausal bleeding and pain in hips. She saw her pcp, Dr. Burnham who referred her to us. She states that the spotting started a few months ago and is off and on. She takes multiple OTC supplements, one of which is a protomorphogen blend of tissue from animals that includes organs including the ovaries. Her mother had large fibroids, the size of soccer balls. She wonders if fibroids could be causing the problems. She consents to an endometrial biopsy today. ultrasound in January is as follows: FINDINGS: The uterus is anteverted and is in a midline position. The uterus measures 10.0 x 10.3 x 6.9 cm. Normal uterine cervix. The endometrium measures 8 mm in thickness, and is fluid distended. There is no demonstrated endometrial mass. 5.4 cm exophytic hypoechoic mass in the anterior fundus the uterus consistent with a subserosal fibroid. Another 5.1 cm round hypoechoic mass in the fundus the uterus consistent with an intramural fibroid. The ovaries are not visualized.. There is no fluid in the cul-de-sac. US/Pelvic (Non ) IMPRESSION: Enlarged fibroid uterus. Some endometrial fluid. Nonvisualization ovaries. Female Reproductive History Questions: metorrhagia: No, sexually active: Yes, dyspareunia: No and PCB: No Menopausal Symptoms: No hot flashes, No night sweats, No weight change, No mood changes, No difficulty concentrating, No sleep problems and No change in libido History 9 Elective abortions Hx Para 6 Spontaneous abortions Hx # Term Pregnancies Ectopic pregnancies Hx # Pregnancies Multiple births # of living children ROS Const ROS Unobtainable: All systems reviewed are unremarkable except as noted in H Constitutional: Reports as per HPI; Denies fatigue, increased appetite, poor appetite, night sweats, weight gain or weight loss Cardio Card: Denies chest pain Resp Resp: Reports system reviewed and no additional complaints, except as documented; Denies cough GI GI: Reports as per HPI : Reports as per HPI and other; Denies difficulty voiding, dysuria, hematuria, hot flashes, nipple discharge, pelvic pain, prolapse symptoms, urinary frequency, urinary incontinence, urinary urgency, vaginal discharge, vaginal dryness, vaginal odor or vaginal pruritus Skin Skin/Breast: Denies changing lesions, breast mass, breast pain, breast skin changes or nipple discharge Psych Psych: Reports system reviewed and no additional complaints, except as documente (more content not included)... Normal [facility] Surgery Specimen Level Jatin 04-25-2024 Surgery Specimen Level IV ---- Patient Age/Sex Location Account Attending Physician ---- CAMILLE BERNABE 73/F [facility] [id number] Oli Craft ---- Specimen: [id number] Received: 04/25/24 Status: OG Howell Num: [id number] Spec Type: CERV Subm Dr: Dr. Snehal Lozano DO HEADER OPERATION: Polypectomy PRE-OP DIAGNOSIS: Cervical polyp TISSUE SUBMITTED: A- Cervical polyp, B- Endometrial lining ---- MICROSCOPIC DIAGNOSIS A. Cervical polyp, polypectomy: Fragments of inflamed benign endometrial polyp with focal area of infarction. See comment. B. Endometrial biopsy: Strips of benign endometrial epithelium. Polypoid fragments of endometrial tissue may represent fragments of endometrial polyp with disordered proliferative endometrium. See comment. SJ. 04/27/2024 COMMENT A. The specimen shows disordered proliferative endometrium. Correlation with clinical findings and appropriate follow up are necessary. MICROSCOPIC DESCRIPTION Slides are reviewed. GROSS DESCRIPTION A. Received in fixative is one container labeled with the patient's name and designated Cervical polyp. The specimen consists of multiple irregular fragments of myers-pink polypoid tissue that in aggregate measure 1.5 x 1.2 x 0.3 cm. The specimen is totally submitted in one cassette. B. Received in fixative is one container labeled with the patient's name and designated Endometrial biopsy. The specimen consists of multiple irregular fragments of myers soft tissue that in aggregate measure 1 x 1 x 0.1 cm. The specimen is totally submitted in one cassette. . 04/26/2024 TC:5 CPT:49784k2 ---- Patient Age/Sex Location Account Attending Physician ---- FLORECITACAMILLE MAURICE 73/F [facility] [id number] Oli Craft ---- Signed (signature on file) Dr. Juvenal Baig MD 04/27/24 1144 ---- Normal [facility] Comment on above: Performed By: #### P SUIV ####[facility] [address] [place], [address] Chest PA and Lateralon 04-12 Chest PA and Lateral [facility] [address] [place], [place] [id number] Chest PA and Lateral MR#: [id number] Acct: [id number] Name: CAMILLE BERNABE Rep #: [id number] : 1950 F 73 From: Malcolm Espinosa MD PCP: Dr. Beryl Keane, DO Status: DEP AMB Study: Chest PA and Lateral Date of Exam: 04/12/24 Exam# [id number] Ordering Dr: Araceli Wills SWEAT BAND SEWER-C EXAM: XR Chest, 2 Views CLINICAL INDICATION: TECHNIQUE: Frontal and lateral views of the chest. COMPARISON: No relevant prior studies available. FINDINGS: LUNGS AND PLEURAL SPACES: See below. HEART: Cardiomegaly with mild congestion. MEDIASTINUM: Unremarkable. Normal mediastinal contour. BONES/JOINTS: Unremarkable. No acute fracture. RAD/Chest PA and Lateral IMPRESSION: Cardiomegaly with mild congestion. Reading Location: [facility] CC: SWEAT BAND SEWER-C Araceli Wills; Dr. Beryl Keane DO Commissioning Agent: Signed Normal [facility] PT D/C Summary (1)on 025 PT D/C Summary (1) [facility] Physical Therapy [facility] [address] [place] [address] [address] [place] [address] / REHABILITATION SERVICES DISCHARGE SUMMARY MR#: [id number] Acct: [id number] Name: CAMILLE BERNABE Rep #: [id number] : 1950 73 From: Kimani Wills DPT, OCS, CSCS Referring Dr.: Dr. Beryl Keane DO Status: REG RCR Insurance: [employer] S[employer] PAY INSURANCE Discharge Summary D/C summary: It has been my pleasure to treat CAMILLE BERNABE referred by Dr. Beryl Keane DO, with the diagnosis of R knee pain, R shoulder pain for a total of 8 visit(s). Discharge Date: 04/08/24 Please see the following information for a summary of their discharge status. Subjective Subjective: A little better in knee and shoulder. Weather changes really make her worse. Exercises in pool seem to help along with HEP to strengthen. No pain in knee or arm prior to weather change today. Pain in shoulder today adn knee 5/10 but better after water workout to 3/10. Sleeping btter in the last week. HEP: irregulalry. they wear her out and water is better. End of April. Pain R shoulder: Pain Intensity (Out of 10): 3 R knee: Pain Intensity (Out of 10): 3 Overall Improvement % Improvement: 50 Objective Objective/Function: Full aROM B shoulders today rotation adn elevation. No pain increases. Weakness persists in flexion at 4- with some transient pain on R. Knee aROM WFL adn some mild tihgtness posteriorly but no increased pain with ROM adn 4/5 streength LE. Walks I without AD without gait deviations today. Goals Goal 1:: Pain in R shoulder and knee 90% improved 1/10 at worst Goal Progress: Progressing 50% Goal 2:: I management of HEP to improve health of tissue Goal Progress: Goal Met Goal 3:: quickdash score 15 or less Goal Progress: Goal Met Plan Plan: d/c to HEP, pt choice vs continued I in pool D/C Information d/c sentence: If there are questions or concerns regarding this patient's physical therapy, please feel free to call me at [phone]. Thank you for the referral of this patient. Sincerely, Kimani Wills, DPT, OCS, CSCS Balance/Gait/Functiona l tests Balance/Special Test Scores Quick DASH Score: 6.8175 Improvement % Improvement: 50 04/08/24 1325 CC: Dr. Beryl Keane DO EB Signed Normal [facility] Pelvic (Non )on 02-01 Pelvic (Non ) [facility] [address] [place] [id number] Pelvic (Non ) MR#: [id number] Acct: [id number] Name: CAMILLE BERNABE Rep #: [id number] : 1950 F 73 From: Jimenez Iniguez MD PCP: Dr. Beryl Keane DO Status: REG CLI Study: Pelvic (Non ) Date of Exam: 02/29/24 Exam# [id number] Ordering Dr: Beryl Keane DO [id number] STUDY: ULTRASOUND OF THE FEMALE PELVIS - LIMITED REASON FOR EXAM: Female, 73 years old ULTRASOUND, PELVIS, COMPLETE -- Vaginal bleeding, abnormal TECHNIQUE: Transabdominal TECHNICAL QUALITY: Adequate. COMPARISON: None. FINDINGS: The uterus is anteverted and is in a midline position. The uterus measures 10.0 x 10.3 x 6.9 cm. Normal uterine cervix. The endometrium measures 8 mm in thickness, and is fluid distended. There is no demonstrated endometrial mass. 5.4 cm exophytic hypoechoic mass in the anterior fundus the uterus consistent with a subserosal fibroid. Another 5.1 cm round hypoechoic mass in the fundus the uterus consistent with an intramural fibroid. The ovaries are not visualized.. There is no fluid in the cul-de-sac. US/Pelvic (Non ) IMPRESSION: Enlarged fibroid uterus. Some endometrial fluid. Nonvisualization ovaries. Electronically Signed: Jimenez Iniguez MD at 13:43 EST , CC: Dr. Beryl Keane, Commissioning Agent: Signed Normal [facility] Inital Evaluation (1) - PTon 02-03-2024 Inital Evaluation (1) - PT [facility] Physical Therapy [address] [place] [address] / REHABILITATION SERVICES INITIAL EVALUATION MR#: [id number] Acct: [id number] Name: CAMILLE BERNABE Rep #: [id number] : 1950 73 From: Kimani Wills DPT, OCS, CSCS Referring DrSonny: Dr. Beryl Keane, Status: REG RCR Insurance: [employer] SELF PAY INSURANCE Patient's Visit Information Visit Information Visit Information: CAMILLE BERNABE is a 73 year old F referred to Physical Therapy by Dr. Beryl Keane DO with a diagnosis of R knee pain, R shoulder pain. Date of Evaluation: 02/03/24 Physical Therapist: Kimani Wills, DPT, OCS, CSCS Visit Plan Frequency: 2x /Week Duration: 4-6 Weeks Plan: 2x/week for 4-6 weeks sstarting aquatic therapy for R shoulder strength and pec stretch R hip and knee strength Progressing to general overall ex in pool and via HEP to complement. Consider need for US, TENS, Manual after pool if still inflamed. Subjective Subjective: R shoulder has been hurting down into arm. A month ago it started insidiously. Has h/o chronic neck funniness. Pain is anterior lateral and worse with reaching out to side and rotating out. No numbness r tingling, maybe a little in 2nd digit on R intermittently. Sleep is interrupted with pain in R shoulder and sleeps all over starting on R side. Pulling covers with R hurts and then it aggravated. Activities: avoids L side, carefull with use of R UE. Dressing is not a problem. Basic ADLs are getting done. Reaching behind is not a problem. R knee can also hurt, treating by chiropractor. Knee feels good this week. 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 No regular ex. Spends day walking for chores and worsens knee. Has to be careful with chores. Reads. Pain R shoulder: Pain Intensity (Out of 10): 2 Pain Intensity Range: 0 and 8 Objective Objective: Walks into PT slowly but I without antalgia today. [facility] bed I. cervical aROM is 40 ext and 45 rotation. Some tenderness R side UT. UE AROM Full and pain with end range flexion and er. IR is OK today. reflexes 2/3 patella and achilles and bi and tri sensation UE WNL to gross light touch in UE and LE. stregth R shoulder er 4- and pianful, L 4, IR 4 B no pain, flexion 3+ R and painful, L is 4/5, empty can and speeds B positive slightly on R along with + scour and HK R. strength LE hips 3+ rotations and abd and ext B, no pain. knee flex/ext 4/5 ankle 4+ No myotomal abnormalities. - slump and SLR. Max tender R medial joint line into pes area. Balance/Special Test Scores Quick DASH Score: 43.1800 Goals Goal 1:: Pain in R shoulder and knee 90% improved 1/10 at worst Goal Time Frame: 4-6 Weeks Goal 2:: I management of HEP to improve health of tissue Goal Time Frame: 4-6 Weeks Goal 3:: quickdash score 15 or less Goal Time Frame: 4-6 Weeks Rehabilitation Potential Physical Therapy Diagnosis: pain and weakness limiting health and comfortable funciton Rehabilitation Potential: Good Anticipated Interventions Patient/Client Instruction: Educate patient on: Condition and Risk Factors For the Purpose of:: To decrease pain, To improve nutrient delivery to tissue, To improve muscle performance and motor function and To increase tolerance to activity/condition/pos ition Therapeutic Exercise to Include: Strength training, Postural training, In an aquatic setting, Passive ROM and Active ROM For the Purpose of:: To decrease pain, To improve nutrient delivery to tissue, To improve muscle performance and motor function, To improve ability of physical actions for home/community/work/le isure and To improve gait and locomotor functions Text: Thank you for the opportunity to evaluate your patient. For Medicare and Medicare HMO plans, please review the plan of care and approve it. It will need to be FAXED BACK to us at [phone] for Medicare purposes. For Medicare only, by signing this I certify the plan of care. Please let me know if there are questions or concerns regarding this plan of care. Physician Signature: Date:__ 02/03/24 1157 CC: Dr. Beryl Keane DO JOSE Signed Normal [facility] Amylaseon 10-02-2023 JOE 42 U/L Normal 25-115 [facility] Comment on above: Performed By: #### L 100.0100, L500.2500, L501.2450, L501.2400, L500.3400 ####[facility] [address] [place], [address] Basic Metabolic Profile (BMP )on 10-02-2023 BUN/CRE 16.4 RATIO Normal 10-20 [facility] Comment on above: Performed By: #### L 100.0100, L500.2500, L501.2450, L501.2400, L500.3400 ####[facility] [address] [place], [address] CA,Total 9.4 mg/dL Normal 8.5-10.1 [facility] Comment on above: Performed By: #### L 100.0100, L500.2500, L501.2450, L501.2400, L500.3400 ####[facility] [address] [place], [address] Chloride [Moles/Vol] 106 mmol/L Normal 98-107 [facility] Comment on above: Performed By: #### L 100.0100, L500.2500, L501.2450, L501.2400, L500.3400 ####[facility] [address] [place], [address] CO2 [Moles/Vol] 30.0 mmol/L Normal 21.0-32.0 [facility] Comment on above: Performed By: #### L 100.0100, L500.2500, L501.2450, L501.2400, L500.3400 ####[facility] [address] [place], [address] Creatinine [Mass/Vol] 0.79 mg/dL Normal 0.55-1.02 [facility] Comment on above: Result Comment: The validity of the calculated GFR GFRAA in patients over 70 years has not been determined. Clinical correlation is essential. Performed By: #### L 100.0100, L500.2500, L501.2450, L501.2400, L500.3400 ####[facility] [address] [place], [address] EST GFR - AA 91 mL/min Normal >60 [facility] Comment on above: Result Comment: Afri can English GFR Calc Performed By: #### L 100.0100, L500.2500, L501.2450, L501.2400, L500.3400 ####[facility] [address] [place], [address] GAP 5 Normal 5-15 [facility] Comment on above: Performed By: #### L 100.0100, L500.2500, L501.2450, L501.2400, L500.3400 ####[facility] [address] [place], [address] GFR/1.73 sq M.predicted among non-blacks MDRD (S/P/Bld) [Vol rate/Area] 76 mL/min/{1.73_m2} Normal >60 [facility] Comment on above: Result Comment: Non- GFR Calc Performed By: #### L 100.0100, L500.2500, L501.2450, L501.2400, L500.3400 ####[facility] [address] [place], [address] Glucose [Mass/Vol] 124 mg/dL High 74-106 [facility] Comment on above: Result Comment: Fast ing Glucose result from 100 to 125 mg/dL suggests IMPAIRED HOMEOSTASIS per A.D.A. criteria. Performed By: #### L 100.0100, L500.2500, L501.2450, L501.2400, L500.3400 ####[facility] [address] [place], [address] Potassium [Moles/Vol] 4.5 mmol/L Normal 3.5-5.1 [facility] Comment on above: Performed By: #### L 100.0100, L500.2500, L501.2450, L501.2400, L500.3400 ####[facility] [address] [place], [address] Sodium [Moles/Vol] 141 mmol/L Normal 136-145 [facility] Comment on above: Performed By: #### L 100.0100, L500.2500, L501.2450, L501.2400, L500.3400 ####[facility] [address] [place], [address] Urea nitrogen [Mass/Vol] 13 mg/dL Normal 7-18 [facility] Comment on above: Performed By: #### L 100.0100, L500.2500, L501.2450, L501.2400, L500.3400 ####[facility] [address] [place], [address] CBC W/Diff, Automatedon 08-0 2-2023 Absolute Lymph 1.73 X10 3/uL Normal 0.83-4.51 [facility] Comment on above: Performed By: #### L 100.0100, L500.2500, L501.2450, L501.2400, L500.3400 ####[facility] [address] [place], [address] Absolute Neut 4.4 X10 3/uL Normal 2.0-7.7 [facility] Comment on above: Performed By: #### L 100.0100, L500.2500, L501.2450, L501.2400, L500.3400 ####[facility] [address] [place], [address] Basophils/100 WBC (Bld) 0.4 % Normal 0-1 [facility] Comment on above: Performed By: #### L 100.0100, L500.2500, L501.2450, L501.2400, L500.3400 ####[facility] [address] [place], [address] Eosinophils/100 WBC (Bld) 0.0 % Normal 0-5 [facility] Comment on above: Performed By: #### L 100.0100, L500.2500, L501.2450, L501.2400, L500.3400 ####[facility] [address] [place], [address] Erythrocyte distribution width (RBC) [Ratio] 13.4 % Normal 11.6-14.6 [facility] Comment on above: Performed By: #### L 100.0100, L500.2500, L501.2450, L501.2400, L500.3400 ####[facility] [address] [place], [address] Hematocrit (Bld) [Volume fraction] 44.0 % Normal 37-47 [facility] Comment on above: Performed By: #### L 100.0100, L500.2500, L501.2450, L501.2400, L500.3400 ####[facility] [address] [place], [address] Hemoglobin (Bld) [Mass/Vol] 13.8 g/dL Normal 12.0-15.0 [facility] Comment on above: Performed By: #### L 100.0100, L500.2500, L501.2450, L501.2400, L500.3400 ####[facility] [address] [place], [address] IG% 0.300 Normal 0.0-0.9 [facility] Comment on above: Result Comment: IG% - Immature Granulocytes (promyelocytes, myelocytes and metamyelocytes) > 1% indicates that a LEFT SHIFT is Present. Performed By: #### L 100.0100, L500.2500, L501.2450, L501.2400, L500.3400 ####[facility] [address] [place], [address] Lymphocytes/100 WBC (Bld) 25.4 % Normal 19-41 [facility] Comment on above: Performed By: #### L 100.0100, L500.2500, L501.2450, L501.2400, L500.3400 ####[facility] [address] [place], [address] MCH (RBC) [Entitic mass] 28.0 pg Normal 27.0-32.0 [facility] Comment on above: Performed By: #### L 100.0100, L500.2500, L501.2450, L501.2400, L500.3400 ####[facility] [address] [place], [address] MCHC (RBC) [Mass/Vol] 31.4 g/dL Low 32-36 [facility] Comment on above: Performed By: #### L 100.0100, L500.2500, L501.2450, L501.2400, L500.3400 ####[facility] [address] [place], [address] MCV (RBC) [Entitic vol] 89.2 fL Normal 81-99 [facility] Comment on above: Performed By: #### L 100.0100, L500.2500, L501.2450, L501.2400, L500.3400 ####[facility] [address] [place], [address] Monocytes/100 WBC (Bld) 8.5 % Normal 0-10 [facility] Comment on above: Performed By: #### L 100.0100, L500.2500, L501.2450, L501.2400, L500.3400 ####[facility] [address] [place], [address] Neutrophils/100 WBC (Bld) 65.4 % Normal 47-70 [facility] Comment on above: Performed By: #### L 100.0100, L500.2500, L501.2450, L501.2400, L500.3400 ####[facility] [address] [place], [address] Nucleated RBC (Bld) [#/Vol] 0 10*3/uL Normal 0-5 [facility] Comment on above: Performed By: #### L 100.0100, L500.2500, L501.2450, L501.2400, L500.3400 ####[facility] [address] [place], [address] Platelet mean volume (Bld) [Entitic vol] 9.9 fL Normal 6.2-12.0 [facility] Comment on above: Performed By: #### L 100.0100, L500.2500, L501.2450, L501.2400, L500.3400 ####[facility] [address] [place], [address] Platelets (Bld) [#/Vol] 357 10*3/uL Normal 150-450 [facility] Comment on above: Performed By: #### L 100.0100, L500.2500, L501.2450, L501.2400, L500.3400 ####[facility] [address] [place], [address] RBC (Bld) [#/Vol] 4.93 10*6/uL Normal 4.2-5.4 [facility] Comment on above: Performed By: #### L 100.0100, L500.2500, L501.2450, L501.2400, L500.3400 ####[facility] [address] [place], [address] RDW SD 43.9 fl Normal 35.1-43.9 [facility] Comment on above: Performed By: #### L 100.0100, L500.2500, L501.2450, L501.2400, L500.3400 ####[facility] [address] [place], [address] WBC (Bld) [#/Vol] 6.8 10*3/uL Normal 4.4-11.0 [facility] Comment on above: Performed By: #### L 100.0100, L500.2500, L501.2450, L501.2400, L500.3400 ####[facility] [address] [place], [address] Knee 4 or More Viewson 10-01 Knee 4 or More Views [facility] Radiology [address] [place] [address] Knee 4 or More Views MR#: [id number] Acct: [id number] Name: CAMILLE BERNABE Rep #: [id number] : [id number] F [id number] From: Davide Segura MD PCP: Dr. Beryl Keane, DO Status: DEP AMB Study: Knee 4 or More Views Date of Exam: 10/02/23 Exam# [id number] Ordering Dr: Araceli Wills SWEAT BAND SEWER-C [id number] STUDY: X-RAY - RIGHT KNEE REASON FOR EXAM: Female, 73 years old. Right knee pain. TECHNIQUE: 4 views of the right knee. COMPARISON: None. FINDINGS: Normal visualized distal femur. Normal visualized proximal tibia and fibula. Normal proximal tibiofibular articulation. There is no demonstrated fracture. There is severe degenerative arthrosis of the medial femorotibial compartment with severe joint space narrowing. Normal lateral femorotibial compartment. There is mild to moderate degenerative arthrosis of the patellofemoral articulation. There is a moderate volume joint effusion. The soft tissue structures are unremarkable. RAD/Knee 4 or More Views IMPRESSION: Severe degenerative arthrosis of the medial femorotibial compartment. Mild to moderate degenerative arthrosis of the patellofemoral articulation. Moderate joint effusion. Electronically Signed: Davide Segura MD at 10:17 EDT , CC: SANDEEP Wills; Dr. Beryl Keane DO Commissioning Agent: Signed Normal [facility] Lipaseon 10-02-2023 Lipase [Catalytic activity/Vol] 30 U/L Normal 13-75 [facility] Comment on above: Result Comment: Tsering mejía note: LIPASE revised reference range effective 22. New Lipase methodology. Expected to produce lower values than the previous assay method. NEW Reference Range: 13 - 75 U/L Performed By: #### L 100.0100, L500.2500, L501.2450, L501.2400, L500.3400 ####[facility] [address] [place], [address] Liver Profileon 10-02-2023 Albumin [Mass/Vol] 3.7 g/dL Normal 3.2-5.0 [facility] Comment on above: Performed By: #### L 100.0100, L500.2500, L501.2450, L501.2400, L500.3400 ####[facility] [address] [place], [address] ALK P 101 U/L Normal 45-117 [facility] Comment on above: Performed By: #### L 100.0100, L500.2500, L501.2450, L501.2400, L500.3400 ####[facility] [address] [place], [address] ALT [Catalytic activity/Vol] 33 U/L Normal 13-56 [facility] Comment on above: Performed By: #### L 100.0100, L500.2500, L501.2450, L501.2400, L500.3400 ####[facility] [address] [place], [address] AST [Catalytic activity/Vol] 25 U/L Normal 15-37 [facility] Comment on above: Performed By: #### L 100.0100, L500.2500, L501.2450, L501.2400, L500.3400 ####[facility] [address] [place], [address] Bilirubin [Mass/Vol] 0.30 mg/dL Normal 0.20-1.00 [facility] Comment on above: Result Comment: For patients on eltrombopag therapy, use of Dimension [place] TBIL is not recommended. Performed By: #### L 100.0100, L500.2500, L501.2450, L501.2400, L500.3400 ####[facility] [address] [place], [address] Bilirubin.direct [Mass/Vol] 0.11 mg/dL Normal 0.00-0.30 [facility] Comment on above: Performed By: #### L 100.0100, L500.2500, L501.2450, L501.2400, L500.3400 ####[facility] [address] [place], [address] Globulin (S) [Mass/Vol] 3.7 g/dL Normal 2.2-4.2 [facility] Comment on above: Performed By: #### L 100.0100, L500.2500, L501.2450, L501.2400, L500.3400 ####[facility] [address] [place], [address] T PROT 7.4 g/dL Normal 6.4-8.2 [facility] Comment on above: Performed By: #### L 100.0100, L500.2500, L501.2450, L501.2400, L500.3400 ####[facility] [address] [place], [address] Blood Glucose , Office ([phone])Ordered By: MediaWheelr on 01-01-2023 Glucose Glucometer (BldC) [Moles/Vol] 124 1 Normal [facility]; [facility] Work Phone: HgA1C , Office ([phone])Ordere d By: Prolifiq Softwareyor on 01-01-2023 HbA1c (Bld) [Mass fraction] 6.5 % Normal 4.6 - 7.1 [facility]; [facility] Work Phone: Blood Glucose , Office ([phone])Ordered By: MediaWheelr on 09-25-2022 Glucose Glucometer (BldC) [Moles/Vol] 140 1 Normal [facility]; [facility] Work Phone: HgA1C , Office ([phone])Ordere d By: MediaWheelr on 09-25-2022 HbA1c (Bld) [Mass fraction] 6.3 % Normal 4.6 - 7.1 [facility]; [facility] Work Phone: CALCIFIDIOL ([phone]) VIT D 25 Ordered By: Spinning Mule Operator on 09-17-2022 25-hydroxyvitamin D [Mass/Vol] 48.5 ng/mL Normal 30.0-100.0 [facility]; [facility] Work Phone: Comment on above: Vitamin D deficiency has been defined by the Loving ofMedicine and an Endocrine Society practice guideline as alevel of serum 25-OH vitamin D less than 20 ng/mL (1,2).The Endocrine Society went on to further define vitamin Dinsufficiency as a level between 21 and 29 ng/mL (2).1. IOM (Loving of Medicine). 2010. Dietary reference intakes for calcium and D. [place]: The National Academies Press.2. Jenny MF, Ryan [place], [facility], et al. Evaluation, treatment, and prevention of vitamin D deficiency: an Endocrine Society clinical practice guideline. JCEM. 2010; 96(7):1911-30. PATIENT WAS FASTINGP ERFORMED BY: [facility] G[address] [facility] [id number] CBC W/AUTO DIFF WBC (67894)O rdered By: Spinning Mule Operator on 09-17-2022 Basophils (Bld) [#/Vol] 0.1 10*3/uL Normal 0.0-0.2 [facility]; [facility] Work Phone: Comment on above: PATIENT WAS FASTINGP ERFORMED BY: CHITRA [facility] [address]xjumu[address] RoadFormerly [facility] [place] [id number] Basophils/100 WBC (Bld) 1 % Normal [facility]; [facility] Work Phone: Comment on above: PATIENT WAS FASTINGP ERFORMED BY: [facility] Mjwyze75[address] RoadFormerly [facility] Carein [place] [id number] Eosinophils (Bld) [#/Vol] 0.2 10*3/uL Normal 0.0-0.4 [facility]; [facility] Work Phone: Comment on above: PATIENT WAS FASTINGP ERFORMED BY: [facility] Dptesq[address] RoadFormerly [facility] [place] [id number] Eosinophils/100 WBC (Bld) 3 % Normal [facility]; [facility] Work Phone: Comment on above: PATIENT WAS FASTINGP ERFORMED BY: [facility] [address] [facility] [id number] Erythrocyte distribution width (RBC) [Ratio] 12.8 % Normal 11.7-15.4 [facility]; [facility] Work Phone: Comment on above: PATIENT WAS FASTINGP ERFORMED BY: [facility] [address]her[address] [facility] [id number] Hematocrit (Bld) [Volume fraction] 39.8 % Normal 34.0-46.6 [facility]; [facility] Work Phone: Comment on above: PATIENT WAS FASTINGP ERFORMED BY: [facility] [address] [facility] [id number] Hemoglobin (Bld) [Mass/Vol] 13.0 g/dL Normal 11.1-15.9 [facility]; [facility] Work Phone: Comment on above: PATIENT WAS FASTINGP ERFORMED BY: [facility] Khglhi[address] [facility] [place] [id number] Immature granulocytes (Bld) [#/Vol] 0.0 10*3/uL Normal 0.0-0.1 [facility]; [facility] Work Phone: Comment on above: PATIENT WAS FASTINGP ERFORMED BY: [facility] [facility]in [place] [id number] Immature granulocytes/100 WBC (Bld) 0 % Normal [facility]; [facility] Work Phone: Comment on above: PATIENT WAS FASTINGP ERFORMED BY: [place] [id number] [facility] [id number] Lymphocytes (Bld) [#/Vol] 1.8 10*3/uL Normal 0.7-3.1 [facility]; [facility] Work Phone: Comment on above: PATIENT WAS FASTINGP ERFORMED BY: [place] [id number] [facility] [id number] Lymphocytes/100 WBC (Bld) 28 % Normal [facility]; [facility] Work Phone: Comment on above: PATIENT WAS FASTINGP ERFORMED BY: [facility]Mc[facility] [facility] [id number] MCH (RBC) [Entitic mass] 28.6 pg Normal 26.6-33.0 [facility]; [facility] Work Phone: Comment on above: PATIENT WAS FASTINGP ERFORMED BY: [facility] [facility] [id number] MCHC (RBC) [Mass/Vol] 32.7 g/dL Normal 31.5-35.7 [facility] prehensive Internal Medicine; [facility] Work Phone: Comment on above: PATIENT WAS FASTINGP ERFORMED BY: LabMcLaren [facility] Region[address] [facility] [id number] MCV (RBC) [Entitic vol] 88 fL Normal 79-97 [facility]; [facility] Work Phone: Comment on above: PATIENT WAS FASTINGP ERFORMED BY: CB [facility] Txctwu7936 [address] RoadDublin [place] [id number] Monocytes (Bld) [#/Vol] 0.6 10*3/uL Normal 0.1-0.9 [facility]; [facility] Work Phone: Comment on above: PATIENT WAS FASTINGP ERFORMED BY: CB [facility] Ojocbt0439 [address] RoadDublin [place] [id number] Monocytes/100 WBC (Bld) 9 % Normal [facility]; [facility] Work Phone: Comment on above: PATIENT WAS FASTINGP ERFORMED BY: CB [facility] Ksyqrk4455 [address]Dublin [place] [id number] Neutrophils (Bld) [#/Vol] 3.8 10*3/uL Normal 1.4-7.0 [facility]; [facility] Work Phone: Comment on above: PATIENT WAS FASTINGP ERFORMED BY: CB [facility] Ertqju6632 [address] RoadDublin [place] [id number] Neutrophils/100 WBC (Bld) 59 % Normal [facility]; [facility] Work Phone: Comment on above: PATIENT WAS FASTINGP ERFORMED BY: CB [facility] Yumqbd7354 [address] RoadDublin [place] [id number] Platelets (Bld) [#/Vol] 378 10*3/uL Normal 150-450 [facility]; [facility] Work Phone: Comment on above: PATIENT WAS FASTINGP ERFORMED BY: CB [facility] Ixhsbv7139 [address]Dublin [place] [id number] RBC (Bld) [#/Vol] 4.55 10*6/uL Normal 3.77-5.28 [facility]; [facility] Work Phone: Comment on above: PATIENT WAS FASTINGP ERFORMED BY: CB [facility] Fqbcnz9335 [address] RoadDublin [place] [id number] WBC (Bld) [#/Vol] 6.4 10*3/uL Normal 3.4-10.8 [facility]; [facility] Work Phone: Comment on above: PATIENT WAS FASTINGP ERFORMED BY: CB [facility] Yzqflk8294 [address] RoadDublin [place] [id number] LIPID PANEL (80630)Ordered B y: Spinning Mule Operator on 09-17-2022 Cholesterol [Mass/Vol] 205 mg/dL Abnormal 100-199 [facility]erens[facility]; [facility] Work Phone: Comment on above: PATIENT WAS FASTINGP ERFORMED BY: CB [facility] Obdzsh7033 [address] RoadDublin [place] [id number] Cholesterol in HDL [Mass/Vol] 66 mg/dL Normal [facility]; [facility] Work Phone: Comment on above: PATIENT WAS FASTINGP ERFORMED BY: CHITRA [facility] Zyoalk7323 [address] RoadDublin [place] [id number] Triglyceride [Mass/Vol] 148 mg/dL Normal 0-149 [facility]; [facility] Work Phone: Comment on above: PATIENT WAS FASTINGP ERFORMED BY: CB [facility] Ryggqy4417 [address] RoadDublin [place] [id number] LIPID PANEL (94715) 26 mg/dL Normal 5-40 [facility]; [facility] Work Phone: Comment on above: PATIENT WAS FASTINGP ERFORMED BY: CB [facility] Stkyui5222 [address] RoadDublin [place] [id number] LIPID PANEL (78718) 113 mg/dL Abnormal 0-99 [facility]; [facility] Work Phone: Comment on above: PATIENT WAS FASTINGP ERFORMED BY: CB [facility] Fqbnrh1599 [address]Dublin [place] [id number] LIPID PANEL (53542) 1.7 {ratio} Normal 0.0-3.2 [facility]; [facility] Work Phone: Comment on above: LDL/HDL Ratio Men Wo men 1/2 Avg.Risk 1.0 1.5 Avg.Risk 3.6 3.2 2X Avg.Risk 6.2 5.0 3X Avg.Risk 8.0 6.1 PATIENT WAS FASTINGP ERFORMED BY: CHITRA [facility] Rphqew2081 [address]Dublin [place] [id number] METABOLIC PANEL, COMPREHENSI VE (16484)Ordered By: Spinning Mule Operator on 09-17-2022 Albumin [Mass/Vol] 4.3 g/dL Normal 3.8-4.8 [facility]; [facility] Work Phone: Comment on above: Please note refere nce interval change PATIENT WAS FASTINGP ERFORMED BY: CHITRA [facility] Xartvl7181 [address] RoadDublin [place] [id number] Albumin/Globulin [Mass ratio] 1.8 {ratio} Normal 1.2-2.2 [facility]; [facility] Work Phone: Comment on above: PATIENT WAS FASTINGP ERFORMED BY: CHITRA Labshondavid FregosoWvazel1765 [address] RoadDublin [place] [id number] ALP [Catalytic activity/Vol] 94 U/L Normal 44-121 [facility]; [facility] Work Phone: Comment on above: PATIENT WAS FASTINGP ERFORMED BY: CHITRA Labcodavid Fwbbmz0049 [address] RoadDublin [place] [id number] ALT [Catalytic activity/Vol] 14 U/L Normal 0-32 [facility]; [facility] Work Phone: Comment on above: PATIENT WAS FASTINGP ERFORMED BY: CHITRA [facility] Zxmruk2357 [address]Dublin [place] [id number] AST [Catalytic activity/Vol] 17 U/L Normal 0-40 [facility]; [facility] Work Phone: Comment on above: PATIENT WAS FASTINGP ERFORMED BY: CHITRA [facility] Idhmmz3242 [address]Dublin [place] [id number] Bilirubin [Mass/Vol] 0.3 mg/dL Normal 0.0-1.2 [facility] Internal [facility]; [facility] Work Phone: Comment on above: PATIENT WAS FASTINGP ERFORMED BY: CHITRA [facility] Lporrx0464 [address] RoadDublin [place] [id number] Calcium [Mass/Vol] 9.7 mg/dL Normal 8.7-10.3 [facility]; [facility] Work Phone: Comment on above: PATIENT WAS FASTINGP ERFORMED BY: [facility] Qvhyvb5452 [address]Dublin [place] [id number] Chloride [Moles/Vol] 99 mmol/L Normal 96-106 [facility]; [facility] Work Phone: Comment on above: PATIENT WAS FASTINGP ERFORMED BY: [facility] Niubev2620 [address]Dublin [place] [id number] CO2 [Moles/Vol] 28 mmol/L Normal 20-29 [facility] Internal [facility]; [facility] Work Phone: Comment on above: PATIENT WAS FASTINGP ERFORMED BY: [facility] Vmxmmp5017 [address]Dublin [place] [id number] Creatinine [Mass/Vol] 0.80 mg/dL Normal 0.57-1.00 [facility] Internal [facility]; [facility] Work Phone: Comment on above: PATIENT WAS FASTINGP ERFORMED BY: [facility] Bkepgl6990 [address]Dublin [place] [id number] GFR/1.73 sq M.predicted among non-blacks MDRD (S/P/Bld) [Vol rate/Area] 79 mL/min/{1.73_m2} Normal Comprehensiv e [facility]; [facility] Work Phone: Comment on above: PATIENT WAS FASTINGP ERFORMED BY: [facility] Dnfjmy5016 [address]Dublin [place] [id number] Globulin (S) [Mass/Vol] 2.4 g/dL Normal 1.5-4.5 [facility]; [facility] Work Phone: Comment on above: PATIENT WAS FASTINGP ERFORMED BY: [facility] Zeyhwt1742 [address]Dublin [place] [id number] Glucose [Mass/Vol] 113 mg/dL Abnormal 70-99 [facility]; [facility] Work Phone: Comment on above: PATIENT WAS FASTINGP ERFORMED BY: CHITRA [facility] Qqougq7668 [address]Dublin [place] [id number] Potassium [Moles/Vol] 4.9 mmol/L Normal 3.5-5.2 [facility]; [facility] Work Phone: Comment on above: PATIENT WAS FASTINGP ERFORMED BY: CB [facility] Ahhsuk1951 [address]Dublin [place] [id number] Protein [Mass/Vol] 6.7 g/dL Normal 6.0-8.5 [facility]; [facility] Work Phone: Comment on above: PATIENT WAS FASTINGP ERFORMED BY: CHITRA [facility] Mxhgmf6675 [address]Dublin [place] [id number] Sodium [Moles/Vol] 139 mmol/L Normal 134-144 [facility]; [facility] Work Phone: Comment on above: PATIENT WAS FASTINGP ERFORMED BY: CHITRA [facility] Zbzwcg4278 [address]Dublin [place] [id number] Urea nitrogen [Mass/Vol] 13 mg/dL Normal 8-27 [facility]; [facility] Work Phone: Comment on above: PATIENT WAS FASTINGP ERFORMED BY: CHITRA [facility] Cgeict5982 [address]Dublin [place] [id number] Urea nitrogen/Creatinine [Mass ratio] 16 mg/mg Normal 12-28 [facility]; [facility] Work Phone: Comment on above: PATIENT WAS FASTINGP ERFORMED BY: CHITRA [facility] Kjznkh8401 [address]Dublin [place] [id number] MICROALBUMINOrdered By: Syst em Cart Attendant on 09-17-2022 Albumin DL <= 20 mg/L (U) [Mass/Vol] 14.8 ug/mL Normal [facility]; [facility] Work Phone: Comment on above: PATIENT WAS FASTINGP ERFORMED BY: CHITRA [facility] Pqsoix5751 [address]Dublin [place] [id number] Albumin/Creatinine (U) [Mass ratio] 15 {mg/g_creat} Normal 0-29 [facility]; [facility] Work Phone: Comment on above: Normal: 0 - 29 Moder ately increased: 30 - 300 Severely increased: >300 PATIENT WAS FASTINGP ERFORMED BY: CHITRA [facility] Qwxitq2176 [address]Dublin [place] [id number] Creatinine (U) [Mass/Vol] 97.5 mg/dL Normal [facility]; [facility] Work Phone: Comment on above: PATIENT WAS FASTINGP ERFORMED BY: CHITRA [facility] Bawioy8919 [address]Dublin [place] [id number] TSH ([id number])Ordered By: Naehasbruce m Cart Attendant on 09-17-2022 TSH Qn 2.890 {uIU/mL} Normal 0.450-4.500 Comprehen sive Internal Medicine; [facility] Work Phone: Comment on above: PATIENT WAS FASTINGP ERFORMED BY: CHITRA [facility] Ybzjcf0628 [address]Dublin [place] [id number] URINALYSIS, W/ MICRO ([id number]) Ordered By: Spinning Mule Operator on 09-17-2022 Appearance (U) Clear Normal Comprehens estela Internal Medicine; [facility] Work Phone: Comment on above: PATIENT WAS FASTINGP ERFORMED BY: CHITRA [facility] Lmcopv7244 [address]Dublin [place] [id number] Bilirubin Ql (U) Negative Normal Comprehe nsive Internal Medicine; [facility] Work Phone: Comment on above: PATIENT WAS FASTINGP ERFORMED BY: CHITRA [facility] Rvinxb8193 [address] [place] [id number] Color (U) Yellow Normal [facility]; [facility] Work Phone: Comment on above: PATIENT WAS FASTINGP ERFORMED BY: CHITRA [facility] Ndjmxk5856 [address] [place] [id number] Glucose Ql (U) Negative Normal Comprehens estela [facility]; [facility] Work Phone: Comment on above: PATIENT WAS FASTINGP ERFORMED BY: CHITRA Fregosolin6370 [address]Dublin [place] [id number] Hemoglobin Ql (U) Negative Normal Compreh ensive Internal Medicine; [facility] Work Phone: Comment on above: PATIENT WAS FASTINGP ERFORMED BY: CHITRA Gooden6370 [address]Dublin [place] [id number] Ketones Ql (U) Negative Normal Comprehens [facility]; [facility] Work Phone: Comment on above: PATIENT WAS FASTINGP ERFORMED BY: CHITRA Labromy FregosoZlnnft7122 Tamayo RoadDublin [place] [id number] Leukocyte esterase Test strip Ql (U) 1+ Abnormal [facility]; [facility] Work Phone: Comment on above: PATIENT WAS FASTINGP ERFORMED BY: CHITRA Fregosolin6370 Tam[address]o RoadDublin [place] [id number] Microscopic observation LM Nom (Urine sed) See below: Normal [facility]; [facility] Work Phone: Comment on above: Microscopic was rikki cated and was performed. PATIENT WAS FASTINGP ERFORMED BY: CHITRA Fregosolin6370 [address]o RoadDublin [place] [id number] Nitrite Ql (U) Negative Normal Comprehens [facility]; [facility] Work Phone: Comment on above: PATIENT WAS FASTINGP ERFORMED BY: CHITRA Fregosolin6370 [address] RoadDublin [place] [id number] pH (U) 7.5 [pH] Normal 5.0-7.5 [facility]; [facility] Work Phone: Comment on above: PATIENT WAS FASTINGP ERFORMED BY: CHITRA Labromy FregosoNlsueo5693 [address]o RoadDublin [place] [id number] Protein Ql (U) Negative Normal Comprehens [facility]; [facility] Work Phone: Comment on above: PATIENT WAS FASTINGP ERFORMED BY: CHITRA Fregosolin6370 [address] RoadDublin [place] [id number] Specific gravity (U) [Rel density] 1.016 1 Normal 1.005-1.030 [facility]; [facility] Work Phone: Comment on above: PATIENT WAS FASTINGP ERFORMED BY: [facility] Xjklkb[address] [facility] [id number] Urobilinogen (U) [Mass/Vol] 0.2 mg/dL Normal 0.2-1.0 [facility]; [facility] Work Phone: Comment on above: PATIENT WAS FASTINGP ERFORMED BY: [facility] Psmkxr7[address] [facility] [id number] Blood Glucose , Office ([phone] 2)Ordered By: Mick Das on 06-18-2022 Glucose Glucometer (BldC) [Moles/Vol] 140 1 Normal [facility]; [facility] Work Phone: HgA1C , Office ([phone])Ordere d By: Mick Das on 06-18-2022 HbA1c (Bld) [Mass fraction] 6.2 % Normal 4.6 - 7.1 [facility]; [facility] Work Phone: Blood Glucose , Office ([phone])Ordered By: Mick Das on 03-19-2022 Glucose Glucometer (BldC) [Moles/Vol] 111 1 Normal [facility]; [facility] Work Phone: HgA1C , Office ([phone])Ordere d By: Mick Das on 03-19-2022 HbA1c (Bld) [Mass fraction] 6.0 % Normal 4.6 - 7.1 [facility]; [facility] Work Phone: CALCIFEDIOL ([id number])Ordered B y: Spinning Mule Operator on 03-11-2022 25-hydroxyvitamin D [Mass/Vol] 51.9 ng/mL Normal 30.0-100.0 [facility]; [facility] Work Phone: Comment on above: Vitamin D deficiency has been defined by the Loving ofMedicine and an Endocrine Society practice guideline as alevel of serum 25-OH vitamin D less than 20 ng/mL (1,2).The Endocrine Society went on to further define vitamin Dinsufficiency as a level between 21 and 29 ng/mL (2).1. IOM (Loving of Medicine). 2010. Dietary reference intakes for calcium and D. [place]: The National Academies Press.2. Jenny MF, Ryan ALEJANDRO, [facility], et al. Evaluation, treatment, and prevention of vitamin D deficiency: an Endocrine Society clinical practice guideline. JCEM. 2010; 96(0):1911-30. PATIENT WAS FASTINGP ERFORMED BY: [employer] Lfdbjz3593 [employer]blin [place] [id number] CBC W/AUTO DIFF WBC (91269)O rdered By: Spinning Mule Operator on 03-11-2022 Basophils (Bld) [#/Vol] 0.0 10*3/uL Normal 0.0-0.2 [facility]; [facility] Work Phone: Comment on above: PATIENT WAS FASTINGP ERFORMED BY: [facility] Fvxjkv6442 [address] PaylocityDublin [place] [id number] Basophils/100 WBC (Bld) 1 % Normal [facility]; [facility] Work Phone: Comment on above: PATIENT WAS FASTINGP ERFORMED BY: LabFor[facility] Mvmmvo7003 [address] PaylocityDublin [place] [id number] Eosinophils (Bld) [#/Vol] 0.2 10*3/uL Normal 0.0-0.4 [facility]; [facility] Work Phone: Comment on above: PATIENT WAS FASTINGP ERFORMED BY: [facility] Dhxxdk3524 [address] PaylocityD[place] [id number] Eosinophils/100 WBC (Bld) 3 % Normal [facility]; [facility] Work Phone: Comment on above: PATIENT WAS FASTINGP ERFORMED BY: Syandus LabSpark Diagnosticsrp Ohwqxj6097 [address] PaylocityFormerly [facility] Carein [place] [id number] Erythrocyte distribution width (RBC) [Ratio] 12.5 % Normal 11.7-15.4 [facility]; [facility] Work Phone: Comment on above: PATIENT WAS FASTINGP ERFORMED BY: [facility] Ygxdiz8463 [address] [facility]in [place] [id number] Hematocrit (Bld) [Volume fraction] 41.8 % Normal 34.0-46.6 [facility]; [facility] Work Phone: Comment on above: PATIENT WAS FASTINGP ERFORMED BY: LabMc[facility]6[address] [facility] [id number] Hemoglobin (Bld) [Mass/Vol] 13.7 g/dL Normal 11.1-15.9 [facility]; [facility] Work Phone: Comment on above: PATIENT WAS FASTINGP ERFORMED BY: [facility] Gsrsym1717 [address] [facility] Hospitalin [place] [id number] Immature granulocytes (Bld) [#/Vol] 0.0 10*3/uL Normal 0.0-0.1 [facility]; [facility] Work Phone: Comment on above: PATIENT WAS FASTINGP ERFORMED BY: [facility] [facility] Hospitalin [place] [id number] Immature granulocytes/100 WBC (Bld) 0 % Normal [facility]; [facility] Work Phone: Comment on above: PATIENT WAS FASTINGP ERFORMED BY: [facility] Puojri1224 [address] [facility] [id number] Lymphocytes (Bld) [#/Vol] 1.5 10*3/uL Normal 0.7-3.1 [facility]; [facility] Work Phone: Comment on above: PATIENT WAS FASTINGP ERFORMED BY: Lab[facility]6[address] [facility]in [place] [id number] Lymphocytes/100 WBC (Bld) 23 % Normal [facility]; [facility] Work Phone: Comment on above: PATIENT WAS FASTINGP ERFORMED BY: [facility] Uahfmc9172 [address] RoadDublin [place] [id number] MCH (RBC) [Entitic mass] 29.3 pg Normal 26.6-33.0 [facility]; [facility] Work Phone: Comment on above: PATIENT WAS FASTINGP ERFORMED BY: CB [facility] Txfgih1415 [address] RoadDublin [place] [id number] MCHC (RBC) [Mass/Vol] 32.8 g/dL Normal 31.5-35.7 [facility] prehensive Internal Medicine; [facility] Work Phone: Comment on above: PATIENT WAS FASTINGP ERFORMED BY: CB [facility] Ulfmoq0678 [address] RoadDublin [place] [id number] MCV (RBC) [Entitic vol] 90 fL Normal 79-97 [facility]; [facility] Work Phone: Comment on above: PATIENT WAS FASTINGP ERFORMED BY: CB [facility] Makrsa5548 [address] RoadDublin [place] [id number] Monocytes (Bld) [#/Vol] 0.4 10*3/uL Normal 0.1-0.9 [facility]; [facility] Work Phone: Comment on above: PATIENT WAS FASTINGP ERFORMED BY: CB [facility] Hufalh0256 [address] RoadDublin [place] [id number] Monocytes/100 WBC (Bld) 7 % Normal [facility]; [facility] Work Phone: Comment on above: PATIENT WAS FASTINGP ERFORMED BY: CB [facility] Buwugx3716 [address] RoadDublin [place] [id number] Neutrophils (Bld) [#/Vol] 4.4 10*3/uL Normal 1.4-7.0 [facility]; [facility] Work Phone: Comment on above: PATIENT WAS FASTINGP ERFORMED BY: CB [facility] Xelkzv4739 [address] RoadDublin [place] [id number] Neutrophils/100 WBC (Bld) 66 % Normal [facility]; [facility] Work Phone: Comment on above: PATIENT WAS FASTINGP ERFORMED BY: CB [facility] Kamzfg0742 [address] RoadDublin [place] [id number] Platelets (Bld) [#/Vol] 338 10*3/uL Normal 150-450 [facility]; [facility] Work Phone: Comment on above: PATIENT WAS FASTINGP ERFORMED BY: CHITRA Labcodavid FregosoMvluyy7662 [address] RoadDublin [place] [id number] RBC (Bld) [#/Vol] 4.67 10*6/uL Normal 3.77-5.28 [facility]; [facility] Work Phone: Comment on above: PATIENT WAS FASTINGP ERFORMED BY: CHITRA [facility] Kgkddq4988 [address] RoadDublin [place] [id number] WBC (Bld) [#/Vol] 6.5 10*3/uL Normal 3.4-10.8 [facility]; [facility] Work Phone: Comment on above: PATIENT WAS FASTINGP ERFORMED BY: CHITRA Fregosolin6370 [address] RoadDublin [place] [id number] LIPID PANEL (73826)Ordered B y: Spinning Mule Operator on 03-11-2022 Cholesterol [Mass/Vol] 180 mg/dL Normal 100-199 [facility]; [facility] Work Phone: Comment on above: PATIENT WAS FASTINGP ERFORMED BY: CHITRA Fregosolin6370 [address] RoadDublin [place] [id number] Cholesterol in HDL [Mass/Vol] 71 mg/dL Normal [facility]; [facility] Work Phone: Comment on above: PATIENT WAS FASTINGP ERFORMED BY: CHITRA Labromy FregosoPmforz9042 [address] RoadDublin [place] [id number] Triglyceride [Mass/Vol] 82 mg/dL Normal 0-149 [facility]; [facility] Work Phone: Comment on above: PATIENT WAS FASTINGP ERFORMED BY: CHITRA Labromy FregosoQvcxwg5752 [address] RoadDublin [place] [id number] LIPID PANEL (55907) 15 mg/dL Normal 5-40 [facility]; [facility] Work Phone: Comment on above: PATIENT WAS FASTINGP ERFORMED BY: CHITRA Labcodavid Jtdyal5587 [address] RoadDublin [place] [id number] LIPID PANEL (69506) 94 mg/dL Normal 0-99 [facility]; [facility] Work Phone: Comment on above: PATIENT WAS FASTINGP ERFORMED BY: CHITRA Labromy FregosoYqtngt5595 [address] [facility] Hospitalblin [place] [id number] LIPID PANEL (40946) 1.3 {ratio} Normal 0.0-3.2 [facility] Internal Medicine; [facility] Work Phone: Comment on above: LDL/HDL Ratio Men Wo men 1/2 Avg.Risk 1.0 1.5 Avg.Risk 3.6 3.2 2X Avg.Risk 6.2 5.0 3X Avg.Risk 8.0 6.1 PATIENT WAS FASTINGP ERFORMED BY: CHITRA Fregosolin[address] [facility] [id number] METABOLIC PANEL, COMPREHENSI VE (99615)Ordered By: Spinning Mule Operator on 03-11-2022 Albumin [Mass/Vol] 4.5 g/dL Normal 3.8-4.8 [facility] Internal Medicine; [facility] Work Phone: Comment on above: PATIENT WAS FASTINGP ERFORMED BY: CHITRA Fregosolin[address] [facility] [id number] Albumin/Globulin [Mass ratio] 2.0 {ratio} Normal 1.2-2.2 [facility]; [facility] Work Phone: Comment on above: PATIENT WAS FASTINGP ERFORMED BY: CHITRA Fregosolin[address] [facility] [id number] ALP [Catalytic activity/Vol] 94 U/L Normal 44-121 [facility]; [facility] Work Phone: Comment on above: PATIENT WAS FASTINGP ERFORMED BY: CHITRA Labromy Pnotqk9479 [address] [facility] [id number] ALT [Catalytic activity/Vol] 16 U/L Normal 0-32 [facility]; [facility] Work Phone: Comment on above: PATIENT WAS FASTINGP ERFORMED BY: CHITRA Labromy Dbibyi1728 [address] [facility] [id number] AST [Catalytic activity/Vol] 16 U/L Normal 0-40 [facility]; [facility] Work Phone: Comment on above: PATIENT WAS FASTINGP ERFORMED BY: CHITRA Sushila Gooden6370 [facility] [id number] Bilirubin [Mass/Vol] 0.3 mg/dL Normal 0.0-1.2 [facility] rehensive Internal Medicine; [facility] Work Phone: Comment on above: PATIENT WAS FASTINGP ERFORMED BY: [facility] Ocmkzd[address] [facility] [id number] Calcium [Mass/Vol] 9.3 mg/dL Normal 8.7-10.3 [facility] Internal [facility]; [facility] Work Phone: Comment on above: PATIENT WAS FASTINGP ERFORMED BY: CHITRA [facility] Fjwvsn[address] [facility] [id number] Chloride [Moles/Vol] 101 mmol/L Normal 96-106 [facility] rehensive Internal Medicine; [facility] Work Phone: Comment on above: PATIENT WAS FASTINGP ERFORMED BY: [facility] Tqrjlj2158 [address] [facility] [id number] CO2 [Moles/Vol] 25 mmol/L Normal 20-29 Com[facility]hen [facility]; [facility] Work Phone: Comment on above: PATIENT WAS FASTINGP ERFORMED BY: [facility] Hhjwkl[address] [facility] [id number] Creatinine [Mass/Vol] 0.81 mg/dL Normal 0.57-1.00 [facility]; [facility] Work Phone: Comment on above: PATIENT WAS FASTINGP ERFORMED BY: [facility] Bhvefx[address]87 [facility] [id number] GFR/1.73 sq M.predicted among non-blacks MDRD (S/P/Bld) [Vol rate/Area] 78 mL/min/{1.73_m2} Normal Comprehensiv e Internal Medicine; [facility] Work Phone: Comment on above: PATIENT WAS FASTINGP ERFORMED BY: [facility] Mznuiz6100 [address] RoadDublin [place] [id number] Globulin (S) [Mass/Vol] 2.2 g/dL Normal 1.5-4.5 [facility]; [facility] Work Phone: Comment on above: PATIENT WAS FASTINGP ERFORMED BY: CB [facility] Ohvwve0047 [address]o RoadDublin [place] [id number] Glucose [Mass/Vol] 98 mg/dL Normal 70-99 [facility] Internal Medicine; [facility] Work Phone: Comment on above: PATIENT WAS FASTINGP ERFORMED BY: CB [facility] Pfzlgu8724 [address] RoadDublin [place] [id number] Potassium [Moles/Vol] 4.2 mmol/L Normal 3.5-5.2 [facility]; [facility] Work Phone: Comment on above: PATIENT WAS FASTINGP ERFORMED BY: [facility] Jblkdl7262 [address] RoadDublin [place] [id number] Protein [Mass/Vol] 6.7 g/dL Normal 6.0-8.5 [facility]; [facility] Work Phone: Comment on above: PATIENT WAS FASTINGP ERFORMED BY: [facility] Lugnft4945 [address] RoadDublin [place] [id number] Sodium [Moles/Vol] 142 mmol/L Normal 134-144 [facility] Internal Medicine; [facility] Work Phone: Comment on above: PATIENT WAS FASTINGP ERFORMED BY: [facility] Gdspvr2754 [address] RoadDublin [place] [id number] Urea nitrogen [Mass/Vol] 14 mg/dL Normal 8-27 [facility] Internal Medicine; [facility] Work Phone: Comment on above: PATIENT WAS FASTINGP ERFORMED BY: CB [facility] Hargsl9270 [address] RoadDublin [place] [id number] Urea nitrogen/Creatinine [Mass ratio] 17 mg/mg Normal 12-28 [facility]; [facility] Work Phone: Comment on above: PATIENT WAS FASTINGP ERFORMED BY: CHITRA [facility] Fovcxq3918 [address] RoadDublin [place] [id number] MICROALBUMINOrdered By: Naehas em Cart Attendant on 03-11-2022 Albumin DL <= 20 mg/L (U) [Mass/Vol] 7.9 ug/mL Normal [facility]; [facility] Work Phone: Comment on above: PATIENT WAS FASTINGP ERFORMED BY: CHITRA [facility] Qikvlr0737 [address] RoadDublin [place] [id number] Albumin/Creatinine (U) [Mass ratio] 8 {mg/g_creat} Normal 0-29 [facility]; [facility] Work Phone: Comment on above: Normal: 0 - 29 Moder ately increased: 30 - 300 Severely increased: >300 PATIENT WAS FASTINGP ERFORMED BY: CHITRA [facility] Ggsqep0010 [address] RoadDublin [place] [id number] Creatinine (U) [Mass/Vol] 98.4 mg/dL Normal [facility]; [facility] Work Phone: Comment on above: PATIENT WAS FASTINGP ERFORMED BY: CHITRA [facility] Tbdczk1494 [address] RoadDublin [place] [id number] TSH ([id number])Ordered By: Naehase Cart Attendant on 03-11-2022 TSH Qn 2.970 {uIU/mL} Normal 0.450-4.500 Comprehen sive Internal Medicine; [facility] Work Phone: Comment on above: PATIENT WAS FASTINGP ERFORMED BY: CHITRA [facility] Oflamm4703 [address] RoadDublin [place] [id number] URINALYSIS, W/ MICRO ([id number]) Ordered By: Spinning Mule Operator on 03-11-2022 Appearance (U) Cloudy Abnormal Comprehens [facility]; [facility] Work Phone: Comment on above: PATIENT WAS FASTINGP ERFORMED BY: CHITRA [facility] Ausrko9758 [address] RoadDublin [place] [id number] Bilirubin Ql (U) Negative Normal Comprehe nsive Internal Medicine; [facility] Work Phone: Comment on above: PATIENT WAS FASTINGP ERFORMED BY: CHITRA Labromy Gooden6370 [address] RoadDublin [place] [id number] Color (U) Yellow Normal [facility]; [facility] Work Phone: Comment on above: PATIENT WAS FASTINGP ERFORMED BY: CHITRA Fregosolin6370 [address] RoadDublin [place] [id number] Glucose Ql (U) Negative Normal Comprehens [facility]; [facility] Work Phone: Comment on above: PATIENT WAS FASTINGP ERFORMED BY: CHITRA Labromy Gooden6370 [address] RoadDublin [place] [id number] Hemoglobin Ql (U) Negative Normal Compreh ensive Internal Medicine; [facility] Work Phone: Comment on above: PATIENT WAS FASTINGP ERFORMED BY: CHITRA Gooden6370 [address] RoadDublin [place] [id number] Ketones Ql (U) Negative Normal Comprehens estela [facility]; [facility] Work Phone: Comment on above: PATIENT WAS FASTINGP ERFORMED BY: CHITRA Gooden6370 [address] RoadDublin [place] [id number] Leukocyte esterase Test strip Ql (U) 1+ Abnormal [facility]; [facility] Work Phone: Comment on above: PATIENT WAS FASTINGP ERFORMED BY: CHITRA Gooden6370 [address] RoadDublin [place] [id number] Microscopic observation LM Nom (Urine sed) See below: Normal [facility]; [facility] Work Phone: Comment on above: Microscopic was rikki cated and was performed. PATIENT WAS FASTINGP ERFORMED BY: CHITRA Lab[facility] Nymiqd6097 [address] RoadDublin [place] [id number] Nitrite Ql (U) Negative Normal Comprehens estela [facility]; [facility] Work Phone: Comment on above: PATIENT WAS FASTINGP ERFORMED BY: CHITRA Labromy FregosoNnnwgq9806 [address] RoadDublin [place] [id number] pH (U) 6.0 [pH] Normal 5.0-7.5 [facility]; [facility] Work Phone: Comment on above: PATIENT WAS FASTINGP ERFORMED BY: [facility] Xhchdf[address] [facility] [id number] Protein Ql (U) Negative Normal Comprehens estela [facility]; [facility] Work Phone: Comment on above: PATIENT WAS FASTINGP ERFORMED BY: [facility] Guszjr[address]54 [facility] [id number] Specific gravity (U) [Rel density] 1.019 1 Normal 1.005-1.030 [facility]; [facility] Work Phone: Comment on above: PATIENT WAS FASTINGP ERFORMED BY: [facility] Wiugyr[address] [id number] Urobilinogen (U) [Mass/Vol] 0.2 mg/dL Normal 0.2-1.0 [facility]; [facility] Work Phone: Comment on above: PATIENT WAS FASTINGP ERFORMED BY: [facility] Lejqaz[address] [facility] [id number] Blood Glucose , Office ([phone] 2)Ordered By: Mick Das on 12-11-2021 Glucose Glucometer (BldC) [Moles/Vol] 115 1 Normal [facility]; [facility] Work Phone: HgA1C , Office ([phone])Ordere d By: Mick Das on 12-11-2021 HbA1c (Bld) [Mass fraction] 6.1 % Normal 4.6 - 7.1 [facility]; [facility] Work Phone: Blood Glucose , Office ([phone] 2)Ordered By: Anaya Orlando on 09-05-2021 Glucose Glucometer (BldC) [Moles/Vol] 125 1 Normal [facility]; [facility] Work Phone: HgA1C , Office ([phone])Ordere d By: Anaya Orlando on 09-05-2021 HbA1c (Bld) [Mass fraction] 6.0 % Normal 4.6 - 7.1 [facility]; [facility] Work Phone: CALCIFIDIOL ([phone]) VIT D 25 Ordered By: Spinning Mule Operator on 08-29-2021 25-hydroxyvitamin D [Mass/Vol] 44.4 ng/mL Normal 30.0-100.0 [facility]; [facility] Work Phone: Comment on above: Vitamin D deficiency has been defined by the Loving ofMer[facility] Medical Centercine and an Endocrine Society practice guideline as alevel of serum 25-OH vitamin D less than 20 ng/mL (1,2).The Endocrine Society went on to further define vitamin Dinsufficiency as a level between 21 and 29 ng/mL (2).1. IOM (Loving of Medicine). 2010. Dietary reference intakes for calcium and D. [place]: The National Academies Press.2. Jenny MF, Ryan ALEJANDRO, [facility], et al. Evaluation, treatment, and prevention of vitamin D deficiency: an Endocrine Society clinical practice guideline. JCEM. 2010; 96(7):1911-30. PATIENT WAS FASTINGP ERFORMED BY: Lingvist6370 [employer] [place] [id number] CBC W/AUTO DIFF WBC ([id number])O rdered By: Spinning Mule Operator on 08-29-2021 Basophils (Bld) [#/Vol] 0.0 10*3/uL Normal 0.0-0.2 [facility]; [facility] Work Phone: Comment on above: PATIENT WAS FASTINGP ERFORMED BY: [employer] Gmljge5135 [employer]blin [place] [id number] Basophils/100 WBC (Bld) 0 % Normal [facility]; [facility] Work Phone: Comment on above: PATIENT WAS FASTINGP ERFORMED BY: Lingvist6370 [address] ShopItblin [place] [id number] Eosinophils (Bld) [#/Vol] 0.2 10*3/uL Normal 0.0-0.4 [facility]; [facility] Work Phone: Comment on above: PATIENT WAS FASTINGP ERFORMED BY: [employer] Vusyta5233 [address] RoadFormerly [facility], [facility] Carein [place] [id number] Eosinophils/100 WBC (Bld) 3 % Normal [facility]; [facility] Work Phone: Comment on above: PATIENT WAS FASTINGP ERFORMED BY: [facility] Apocbg0756 [address] [facility] [id number] Erythrocyte distribution width (RBC) [Ratio] 12.4 % Normal 11.7-15.4 [facility]; [facility] Work Phone: Comment on above: PATIENT WAS FASTINGP ERFORMED BY: LabMcLaren Bay Region6[address] [facility] [id number] Hematocrit (Bld) [Volume fraction] 41.6 % Normal 34.0-46.6 [facility]; [facility] Work Phone: Comment on above: PATIENT WAS FASTINGP ERFORMED BY: [facility] Nzuqxz0649 [address] [facility] [id number] Hemoglobin (Bld) [Mass/Vol] 13.5 g/dL Normal 11.1-15.9 [facility]; [facility] Work Phone: Comment on above: PATIENT WAS FASTINGP ERFORMED BY: [facility] Tjmeoa9935 [address] [facility] [id number] Immature granulocytes (Bld) [#/Vol] 0.0 10*3/uL Normal 0.0-0.1 [facility]; [facility] Medicine Work Phone: Comment on above: PATIENT WAS FASTINGP ERFORMED BY: LabMcLaren Bay Region6[address] [facility]in [place] [id number] Immature granulocytes/100 WBC (Bld) 0 % Normal [facility]; [facility] Work Phone: Comment on above: PATIENT WAS FASTINGP ERFORMED BY: [facility] Qccxha1505 [address] [facility] [id number] Lymphocytes (Bld) [#/Vol] 1.9 10*3/uL Normal 0.7-3.1 [facility]; [facility] Work Phone: Comment on above: PATIENT WAS FASTINGP ERFORMED BY: [facility] Afibgc0557 [address]o RoadDublin [place] [id number] Lymphocytes/100 WBC (Bld) 25 % Normal [facility]; [facility] Work Phone: Comment on above: PATIENT WAS FASTINGP ERFORMED BY: CB [facility] Yxsdwz0100 [address] RoadDublin [place] [id number] MCH (RBC) [Entitic mass] 29.5 pg Normal 26.6-33.0 [facility]; [facility] Work Phone: Comment on above: PATIENT WAS FASTINGP ERFORMED BY: [facility] Urvplh3976 Tam[address]o RoadDublin [place] [id number] MCHC (RBC) [Mass/Vol] 32.5 g/dL Normal 31.5-35.7 [facility] prehensive Internal Medicine; [facility] Work Phone: Comment on above: PATIENT WAS FASTINGP ERFORMED BY: [facility] Ytwogt1689 [address] RoadDublin [place] [id number] MCV (RBC) [Entitic vol] 91 fL Normal 79-97 [facility]; [facility] Work Phone: Comment on above: PATIENT WAS FASTINGP ERFORMED BY: [facility] Omfaps1888 [address] RoadDublin [place] [id number] Monocytes (Bld) [#/Vol] 0.6 10*3/uL Normal 0.1-0.9 [facility]; [facility] Work Phone: Comment on above: PATIENT WAS FASTINGP ERFORMED BY: [facility] Zqxutz5396 [address] RoadDublin [place] [id number] Monocytes/100 WBC (Bld) 8 % Normal [facility]; [facility] Work Phone: Comment on above: PATIENT WAS FASTINGP ERFORMED BY: [facility] Elcyaa4955 [address]Dublin [place] [id number] Neutrophils (Bld) [#/Vol] 4.7 10*3/uL Normal 1.4-7.0 [facility]; [facility] Work Phone: Comment on above: PATIENT WAS FASTINGP ERFORMED BY: CHITRA [facility] Oqohdy0334 [address] RoadDublin [place] [id number] Neutrophils/100 WBC (Bld) 64 % Normal [facility]; [facility] Work Phone: Comment on above: PATIENT WAS FASTINGP ERFORMED BY: CHITRA [facility] Utxiuh7935 [address] RoadDublin [place] [id number] Platelets (Bld) [#/Vol] 318 10*3/uL Normal 150-450 [facility]; [facility] Work Phone: Comment on above: PATIENT WAS FASTINGP ERFORMED BY: CHITRA [facility] Bbjwhl1359 [address] RoadDublin [place] [id number] RBC (Bld) [#/Vol] 4.58 10*6/uL Normal 3.77-5.28 [facility] Internal Medicine; [facility] Work Phone: Comment on above: PATIENT WAS FASTINGP ERFORMED BY: CHITRA [facility] Hlmaro6459 [address] RoadDublin [place] [id number] WBC (Bld) [#/Vol] 7.4 10*3/uL Normal 3.4-10.8 [facility] Internal Medicine; [facility] Work Phone: Comment on above: PATIENT WAS FASTINGP ERFORMED BY: CHITRA [facility] Bqwcen7871 [address] RoadDublin [place] [id number] LIPID PANEL (91321)Ordered B y: Spinning Mule Operator on 08-29-2021 Cholesterol [Mass/Vol] 189 mg/dL Normal 100-199 [facility] Internal Medicine; [facility] Work Phone: Comment on above: PATIENT WAS FASTINGP ERFORMED BY: CHITRA [facility] Vybhcp0694 [address] RoadDublin [place] [id number] Cholesterol in HDL [Mass/Vol] 67 mg/dL Normal [facility]; [facility] Work Phone: Comment on above: PATIENT WAS FASTINGP ERFORMED BY: CHITRA [facility] Qqssgp1544 [address] RoadDublin [place] [id number] Triglyceride [Mass/Vol] 136 mg/dL Normal 0-149 [facility]; [facility] Work Phone: Comment on above: PATIENT WAS FASTINGP ERFORMED BY: CHITRA [facility] FregosoGrahsq3476 [address] [facility] [id number] LIPID PANEL (00375) 24 mg/dL Normal 5-40 [facility] Internal Medicine; [facility] Work Phone: Comment on above: PATIENT WAS FASTINGP ERFORMED BY: CHITRA Labcodavid FregosoHpuusu2317 [address] [facility] [id number] LIPID PANEL (80277) 98 mg/dL Normal 0-99 [facility] Internal Medicine; [facility] Work Phone: Comment on above: PATIENT WAS FASTINGP ERFORMED BY: CHITRA Fregosolin[address] [id number] LIPID PANEL (56774) 1.5 {ratio} Normal 0.0-3.2 [facility] Internal Medicine; [facility] Work Phone: Comment on above: LDL/HDL Ratio Men Wo men 1/2 Avg.Risk 1.0 1.5 Avg.Risk 3.6 3.2 2X Avg.Risk 6.2 5.0 3X Avg.Risk 8.0 6.1 PATIENT WAS FASTINGP ERFORMED BY: CHITRA Conti Xgbhjq[address] [id number] METABOLIC PANEL, COMPREHENSI VE (44119)Ordered By: Spinning Mule Operator on 08-29-2021 Albumin [Mass/Vol] 4.4 g/dL Normal 3.8-4.8 [facility] Internal Medicine; [facility] Work Phone: Comment on above: PATIENT WAS FASTINGP ERFORMED BY: CHITRA Labcodavid Nstpbz[address] [id number] Albumin/Globulin [Mass ratio] 1.7 {ratio} Normal 1.2-2.2 [facility] Internal Medicine; [facility] Work Phone: Comment on above: PATIENT WAS FASTINGP ERFORMED BY: CHITRA [facility] Czaqsb9208 [address] [facility] [id number] ALP [Catalytic activity/Vol] 87 U/L Normal 44-121 [facility]; [facility] Work Phone: Comment on above: PATIENT WAS FASTINGP ERFORMED BY: CB [facility] Zdjygi9124 [address] RoadDublin [place] [id number] ALT [Catalytic activity/Vol] 16 U/L Normal 0-32 [facility]; [facility] Work Phone: Comment on above: PATIENT WAS FASTINGP ERFORMED BY: CB [facility] Dwmllv4299 [address] RoadDublin [place] [id number] AST [Catalytic activity/Vol] 17 U/L Normal 0-40 [facility]; [facility] Work Phone: Comment on above: PATIENT WAS FASTINGP ERFORMED BY: CB [facility] Eksddk6493 [address] RoadDublin [place] [id number] Bilirubin [Mass/Vol] 0.4 mg/dL Normal 0.0-1.2 Comp rehensive Internal Medicine; [facility] Work Phone: Comment on above: PATIENT WAS FASTINGP ERFORMED BY: CB [facility] Qpwqez9850 [address] RoadDublin [place] [id number] Calcium [Mass/Vol] 9.8 mg/dL Normal 8.7-10.3 [facility] Internal Medicine; [facility] Work Phone: Comment on above: PATIENT WAS FASTINGP ERFORMED BY: CB [facility] Mycknq9143 [address] RoadDublin [place] [id number] Chloride [Moles/Vol] 102 mmol/L Normal 96-106 Comp [facility]ensive [facility]; [facility] Work Phone: Comment on above: PATIENT WAS FASTINGP ERFORMED BY: CB [facility] Cwyqcd3932 [address] RoadDublin [place] [id number] CO2 [Moles/Vol] 25 mmol/L Normal 20-29 [facility] Internal Medicine; [facility] Work Phone: Comment on above: PATIENT WAS FASTINGP ERFORMED BY: CB [facility] Wnzkwi4069 [address] RoadDublin [place] [id number] Creatinine [Mass/Vol] 0.83 mg/dL Normal 0.57-1.00 [facility] prehensive Internal Medicine; [facility] Work Phone: Comment on above: PATIENT WAS FASTINGP ERFORMED BY: CHITRA Burks Exjfpk[address] [id number] GFR/1.73 sq M.predicted among non-blacks MDRD (S/P/Bld) [Vol rate/Area] 76 mL/min/{1.73_m2} Normal Comprehensiv e Internal Medicine; [facility] Work Phone: Comment on above: PATIENT WAS FASTINGP ERFORMED BY: LabMc[facility] [id number] Globulin (S) [Mass/Vol] 2.6 g/dL Normal 1.5-4.5 [facility]; [facility] Work Phone: Comment on above: PATIENT WAS FASTINGP ERFORMED BY: [facility]Mc[facility] [id number] Glucose [Mass/Vol] 108 mg/dL Abnormal 65-99 [facility] hens[facility]; [facility] Work Phone: Comment on above: PATIENT WAS FASTINGP ERFORMED BY: [facility] Uxsogd[address] [id number] Potassium [Moles/Vol] 4.2 mmol/L Normal 3.5-5.2 [facility] prehensive Internal Medicine; [facility] Work Phone: Comment on above: PATIENT WAS FASTINGP ERFORMED BY: [facility] [id number] Protein [Mass/Vol] 7.0 g/dL Normal 6.0-8.5 [facility] Internal Medicine; [facility] Work Phone: Comment on above: PATIENT WAS FASTINGP ERFORMED BY: [facility] [id number] Sodium [Moles/Vol] 142 mmol/L Normal 134-144 [facility] hensive Internal Medicine; [facility] Work Phone: Comment on above: PATIENT WAS FASTINGP ERFORMED BY: CB [facility] Wdbxko4211 [address] RoadDublin [place] [id number] Urea nitrogen [Mass/Vol] 11 mg/dL Normal 8-27 [facility]; [facility] Work Phone: Comment on above: PATIENT WAS FASTINGP ERFORMED BY: CB [facility] Vrripe7936 [address] RoadDublin [place] [id number] Urea nitrogen/Creatinine [Mass ratio] 13 mg/mg Normal 12-28 [facility]; [facility] Work Phone: Comment on above: PATIENT WAS FASTINGP ERFORMED BY: CB [facility] Qqoflg0897 [address] RoadDublin [place] [id number] MICROALBUMINOrdered By: Naehas em Cart Attendant on 08-29-2021 Albumin DL <= 20 mg/L (U) [Mass/Vol] 5.4 ug/mL Normal [facility]; [facility] Work Phone: Comment on above: PATIENT WAS FASTINGP ERFORMED BY: CB [facility] Gfkbdb2273 [address] RoadDublin [place] [id number] Albumin/Creatinine (U) [Mass ratio] 9 {mg/g_creat} Normal 0-29 [facility]; [facility] Work Phone: Comment on above: Normal: 0 - 29 Moder ately increased: 30 - 300 Severely increased: >300 PATIENT WAS FASTINGP ERFORMED BY: CB [facility] Zdhrlj3910 [address] RoadDublin [place] [id number] Creatinine (U) [Mass/Vol] 57.0 mg/dL Normal [facility]; [facility] Work Phone: Comment on above: PATIENT WAS FASTINGP ERFORMED BY: CB [facility] Yzhrcj5302 [address] RoadDublin [place] [id number] TSH ([id number])Ordered By: [employer] m Cart Attendant on 08-29-2021 TSH Qn 1.500 {uIU/mL} Normal 0.450-4.500 [facility] Internal Medicine; [facility] Work Phone: Comment on above: PATIENT WAS FASTINGP ERFORMED BY: CHITRA Gooden6370 [address]Dublin [place] [id number] URINALYSIS, W/ MICRO ([id number]) Ordered By: Spinning Mule Operator on 08-29-2021 Appearance (U) Clear Normal Comprehens estela Internal Medicine; [facility] Work Phone: Comment on above: PATIENT WAS FASTINGP ERFORMED BY: CHITRA Gooden6370 [address]Dublin [place] [id number] Bilirubin Ql (U) Negative Normal Comprehe nsive Internal Medicine; [facility] Work Phone: Comment on above: PATIENT WAS FASTINGP ERFORMED BY: CHITRA Gooden6370 [address]Dublin [place] [id number] Color (U) Yellow Normal [facility]; [facility] Work Phone: Comment on above: PATIENT WAS FASTINGP ERFORMED BY: CHITRA Gooden6370 [address]Dublin [place] [id number] Glucose Ql (U) Negative Normal Comprehens estela Internal Medicine; [facility] Work Phone: Comment on above: PATIENT WAS FASTINGP ERFORMED BY: CHITRA Gooden6370 [address]Dublin [place] [id number] Hemoglobin Ql (U) Negative Normal Compreh ensive Internal Medicine; [facility] Work Phone: Comment on above: PATIENT WAS FASTINGP ERFORMED BY: CHITRA Gooden6370 [address]Dublin [place] [id number] Ketones Ql (U) Negative Normal Comprehens estela Internal Medicine; [facility] Work Phone: Comment on above: PATIENT WAS FASTINGP ERFORMED BY: CHITRA [facility] FregosoPamtyk0884 [address] RoadDublin [place] [id number] Leukocyte esterase Test strip Ql (U) Negative Normal [facility]; [facility] Work Phone: Comment on above: PATIENT WAS FASTINGP ERFORMED BY: CHITRA Fregosolin6370 [address]Dublin [place] [id number] Microscopic observation LM Nom (Urine sed) MICRON Normal [facility]; [facility] Work Phone: Comment on above: Microscopic follows if indicated. PATIENT WAS FASTINGP ERFORMED BY: CHITRA Gooden6370 [address] [facility] Hospitalblin [place] [id number] Microscopic observation LM Nom (Urine sed) See below: Normal [facility]; [facility] Work Phone: Comment on above: Microscopic was rikki cated and was performed. PATIENT WAS FASTINGP ERFORMED BY: CHITRA Vitaliy Qgukaw7965 [address] RoadDublin [place] [id number] Nitrite Ql (U) Negative Normal Comprehens estela Internal Medicine; [facility] Work Phone: Comment on above: PATIENT WAS FASTINGP ERFORMED BY: CHITRA Sushila Gooden6[address] [facility]in [place] [id number] pH (U) 7.5 [pH] Normal 5.0-7.5 [facility]; [facility] Work Phone: Comment on above: PATIENT WAS FASTINGP ERFORMED BY: CHITRA Vitaliy Gdhitt3900 [address] [facility]in [place] [id number] Protein Ql (U) Negative Normal Comprehens estela Internal Medicine; [facility] Work Phone: Comment on above: PATIENT WAS FASTINGP ERFORMED BY: CHITRA Sushila Gooden[address] [id number] Specific gravity (U) [Rel density] 1.012 1 Normal 1.005-1.030 [facility]; [facility] Work Phone: Comment on above: PATIENT WAS FASTINGP ERFORMED BY: [facility] Lsghqr8037 [address] [facility]in [place] [id number] Urobilinogen (U) [Mass/Vol] 0.2 mg/dL Normal 0.2-1.0 [facility]; [facility] Work Phone: Comment on above: PATIENT WAS FASTINGP ERFORMED BY: [facility] Zsfmee7604 [address] [facility]in [place] [id number] HEPATITIS C ANTIBODY (45124) Ordered By: Spinning Mule Operator on 06-17-2021 HCV Ab Signal/Cutoff IA [Rel units/Vol] {ratio} Normal 0.0-0.9 [facility]; [facility] Work Phone: Comment on above: Negative: < 0.8 Inde terminate: 0.8 - 0.9 Positive: > 0.9 . The CDC recommends that a positive HCV antibody result be followed up with a HCV Nucleic Acid Amplification test (349286). PATIENT NOT FASTINGP ERFORMED BY: DEONTICS [place] [id number] Blood Glucose , Office (3702 2)Ordered By: Obdulia Bernard on 05-16-2021 Glucose Glucometer (BldC) [Moles/Vol] 125 1 Normal [facility]; [facility] Work Phone: HgA1C , Office (28106)Ordere d By: Obdulia Bernard on 05-16-2021 HbA1c (Bld) [Mass fraction] 6.0 % Normal 4.6 - 7.1 [facility]; [facility] Work Phone: CALCIFEDIOL (77074)Ordered B y: Spinning Mule Operator on 02-01-2021 25-hydroxyvitamin D [Mass/Vol] 72.9 ng/mL Normal 30.0-100.0 [facility]; [facility] Work Phone: Comment on above: Vitamin D deficiency has been defined by the Loving ofMedicine and an Endocrine Society practice guideline as alevel of serum 25-OH vitamin D less than 20 ng/mL (1,2).The Endocrine Society went on to further define vitamin Dinsufficiency as a level between 21 and 29 ng/mL (2).1. IOM (Loving of Medicine). 2010. Dietary reference intakes for calcium and D. [place]: The National Academies Press.2. Jenny MF, Ryan ALEJANDRO, [facility] S[facility]SA, et al. Evaluation, treatment, and prevention of vitamin D deficiency: an Endocrine Society clinical practice guideline. JCEM. 2010; 96(7):1911-30. PATIENT WAS FASTINGP ERFORMED BY: Lingvist6370 MyLifePlaceMurray-Call[facility] [id number] CBC W/AUTO DIFF WBC (51163)O rdered By: Spinning Mule Operator on 02-01-2021 Basophils (Bld) [#/Vol] 0.0 10*3/uL Normal 0.0-0.2 [facility]; [facility] Work Phone: Comment on above: PATIENT WAS FASTINGP ERFORMED BY: CHITRA [facility] Zzfwil8784 [address] RoadDublin [place] [id number] Basophils/100 WBC (Bld) 0 % Normal [facility]; [facility] Work Phone: Comment on above: PATIENT WAS FASTINGP ERFORMED BY: CHITRA [facility] Bklkin8745 [address] RoadDublin [place] [id number] Eosinophils (Bld) [#/Vol] 0.0 10*3/uL Normal 0.0-0.4 [facility]; [facility] Work Phone: Comment on above: PATIENT WAS FASTINGP ERFORMED BY: CHITRA [facility] Llazha9457 [address] RoadDublin [place] [id number] Eosinophils/100 WBC (Bld) 1 % Normal [facility]; [facility] Work Phone: Comment on above: PATIENT WAS FASTINGP ERFORMED BY: CHITRA [facility] Ilpaby9200 [address] [facility] Hospitalblin [place] [id number] Erythrocyte distribution width (RBC) [Ratio] 12.9 % Normal 11.7-15.4 [facility]; [facility] Work Phone: Comment on above: PATIENT WAS FASTINGP ERFORMED BY: [facility] Zkmuqz2258 [address] Roadblin [place] [id number] Hematocrit (Bld) [Volume fraction] 42.6 % Normal 34.0-46.6 [facility]; [facility] Work Phone: Comment on above: PATIENT WAS FASTINGP ERFORMED BY: [facility] Hivlay5349 [address] RoadDublin [place] [id number] Hemoglobin (Bld) [Mass/Vol] 14.4 g/dL Normal 11.1-15.9 [facility]; [facility] Work Phone: Comment on above: PATIENT WAS FASTINGP ERFORMED BY: [facility] Vpzbyf2308 [address] [facility] [id number] Immature granulocytes (Bld) [#/Vol] 0.0 10*3/uL Normal 0.0-0.1 [facility]; [facility] Work Phone: Comment on above: PATIENT WAS FASTINGP ERFORMED BY: [facility] [id number] Immature granulocytes/100 WBC (Bld) 0 % Normal [facility]; [facility] Work Phone: Comment on above: PATIENT WAS FASTINGP ERFORMED BY: [place] [id number] [id number] Lymphocytes (Bld) [#/Vol] 1.3 10*3/uL Normal 0.7-3.1 [facility]; [facility] Work Phone: Comment on above: PATIENT WAS FASTINGP ERFORMED BY: [facility] [id number] Lymphocytes/100 WBC (Bld) 25 % Normal [facility]; [facility] Work Phone: Comment on above: PATIENT WAS FASTINGP ERFORMED BY: CHITRA [facility] Uaiisa[address] [id number] MCH (RBC) [Entitic mass] 30.1 pg Normal 26.6-33.0 [facility]; [facility] Work Phone: Comment on above: PATIENT WAS FASTINGP ERFORMED BY: [place] [id number] [id number] MCHC (RBC) [Mass/Vol] 33.8 g/dL Normal 31.5-35.7 [facility] prehensive Internal Medicine; [facility] Work Phone: Comment on above: PATIENT WAS FASTINGP ERFORMED BY: Lab[facility] [id number] MCV (RBC) [Entitic vol] 89 fL Normal 79-97 [facility]; [facility] Work Phone: Comment on above: PATIENT WAS FASTINGP ERFORMED BY: CB [facility] Brfman3876 [address] RoadDublin [place] [id number] Monocytes (Bld) [#/Vol] 0.9 10*3/uL Normal 0.1-0.9 [facility]; [facility] Work Phone: Comment on above: PATIENT WAS FASTINGP ERFORMED BY: CB [facility] Rtgnic6793 [address] RoadDublin [place] [id number] Monocytes/100 WBC (Bld) 17 % Normal [facility]; [facility] Work Phone: Comment on above: PATIENT WAS FASTINGP ERFORMED BY: CB [facility] Shkrba3999 [address] RoadDublin [place] [id number] Neutrophils (Bld) [#/Vol] 3.0 10*3/uL Normal 1.4-7.0 [facility]; [facility] Work Phone: Comment on above: PATIENT WAS FASTINGP ERFORMED BY: CHITRA [facility] Xzmhso6913 [address] RoadDublin [place] [id number] Neutrophils/100 WBC (Bld) 57 % Normal [facility]; [facility] Work Phone: Comment on above: PATIENT WAS FASTINGP ERFORMED BY: CB [facility] Sbmdup9546 [address] RoadDublin [place] [id number] Platelets (Bld) [#/Vol] 262 10*3/uL Normal 150-450 [facility]; [facility] Work Phone: Comment on above: PATIENT WAS FASTINGP ERFORMED BY: CB [facility] Liwqhn2079 [address] RoadDublin [place] [id number] RBC (Bld) [#/Vol] 4.79 10*6/uL Normal 3.77-5.28 [facility] Internal Medicine; [facility] Work Phone: Comment on above: PATIENT WAS FASTINGP ERFORMED BY: CB [facility] Uhbldv5625 [address] RoadDublin [place] [id number] WBC (Bld) [#/Vol] 5.3 10*3/uL Normal 3.4-10.8 [facility] Internal Medicine; [facility] Work Phone: Comment on above: PATIENT WAS FASTINGP ERFORMED BY: CB [facility] Fbngma4694 [address] RoadDublin [place] [id number] LIPID PANEL (28834)Ordered B y: Spinning Mule Operator on 02-01-2021 Cholesterol [Mass/Vol] 159 mg/dL Normal 100-199 Co [facility] centerensive Internal Medicine; [facility] Work Phone: Comment on above: PATIENT WAS FASTINGP ERFORMED BY: CB [facility] Jyzwdz6595 [address] RoadDublin [place] [id number] Cholesterol in HDL [Mass/Vol] 64 mg/dL Normal [facility]; [facility] Work Phone: Comment on above: PATIENT WAS FASTINGP ERFORMED BY: CB [facility] Cqfsop7674 [address] RoadDublin [place] [id number] Triglyceride [Mass/Vol] 105 mg/dL Normal 0-149 [facility]; [facility] Work Phone: Comment on above: PATIENT WAS FASTINGP ERFORMED BY: CB [facility] Qtxbay5160 [address] RoadDublin [place] [id number] LIPID PANEL (19419) 19 mg/dL Normal 5-40 [facility]; [facility] Work Phone: Comment on above: PATIENT WAS FASTINGP ERFORMED BY: CB [facility] Rkpmqu5239 [address] RoadDublin [place] [id number] LIPID PANEL (23499) 76 mg/dL Normal 0-99 [facility]; [facility] Work Phone: Comment on above: PATIENT WAS FASTINGP ERFORMED BY: CB [facility] Zlxskm7181 [address]Dublin [place] [id number] LIPID PANEL (06205) 1.2 {ratio} Normal 0.0-3.2 [facility]; [facility] Work Phone: Comment on above: LDL/HDL Ratio Men Wo men 1/2 Avg.Risk 1.0 1.5 Avg.Risk 3.6 3.2 2X Avg.Risk 6.2 5.0 3X Avg.Risk 8.0 6.1 PATIENT WAS FASTINGP ERFORMED BY: CHITRA [facility] Bqykbt7603 [address]Dublin [place] [id number] METABOLIC PANEL, COMPREHENSI VE (58372)Ordered By: Spinning Mule Operator on 02-01-2021 Albumin [Mass/Vol] 4.3 g/dL Normal 3.8-4.8 [facility] Internal Medicine; [facility] Work Phone: Comment on above: PATIENT WAS FASTINGP ERFORMED BY: CHITRA [facility] Ldecfb0877 [address] RoadDublin [place] [id number] Albumin/Globulin [Mass ratio] 1.6 {ratio} Normal 1.2-2.2 [facility]; [facility] Medicine Work Phone: Comment on above: PATIENT WAS FASTINGP ERFORMED BY: CHITRA Labcodavid Xlqify5892 Tamayo RoadDublin [place] [id number] ALP [Catalytic activity/Vol] 85 U/L Normal 44-121 [facility]; [facility] Work Phone: Comment on above: Please note refere nce interval change PATIENT WAS FASTINGP ERFORMED BY: CHITRA [facility] Hsiglt6901 Tamayo RoadDublin [place] [id number] ALT [Catalytic activity/Vol] 26 U/L Normal 0-32 [facility]; [facility] Work Phone: Comment on above: PATIENT WAS FASTINGP ERFORMED BY: CHITRA [facility] Ybhsrw9079 Tamayo RoadDublin [place] [id number] AST [Catalytic activity/Vol] 24 U/L Normal 0-40 [facility]; [facility] Work Phone: Comment on above: PATIENT WAS FASTINGP ERFORMED BY: CHITRA [facility] Dibzhh7302 [address]o RoadDublin [place] [id number] Bilirubin [Mass/Vol] 0.3 mg/dL Normal 0.0-1.2 [facility] Medicine; [facility] Work Phone: Comment on above: PATIENT WAS FASTINGP ERFORMED BY: CHITRA [facility] Tqhxam8547 [address]o RoadDublin [place] [id number] Calcium [Mass/Vol] 9.4 mg/dL Normal 8.7-10.3 [facility]; [facility] Work Phone: Comment on above: PATIENT WAS FASTINGP ERFORMED BY: CHITRA Gooden6370 [address] CallCentral Carolina Hospital [id number] Chloride [Moles/Vol] 99 mmol/L Normal 96-106 Comp rehensive Internal Medicine; [facility] Work Phone: Comment on above: PATIENT WAS FASTINGP ERFORMED BY: CHITRA Fregosolin[address] [id number] CO2 [Moles/Vol] 25 mmol/L Normal 20-29 [facility] Internal Medicine; [facility] Work Phone: Comment on above: PATIENT WAS FASTINGP ERFORMED BY: Sushila Gooden[address] [id number] Creatinine [Mass/Vol] 0.78 mg/dL Normal 0.57-1.00 [facility]; [facility] Work Phone: Comment on above: PATIENT WAS FASTINGP ERFORMED BY: CHITRA Fregosolin[address] [id number] GFR/1.73 sq M.predicted among blacks CKD-EPI (S/P/Bld) [Vol rate/Area] 90 mL/min/1.73 Normal [facility]; [facility] Work Phone: Comment on above: In accordance with recommendations from the NKF-ASN Task force, [facility] is in the process of updating its eGFR calculation to the 2020 CKD-EPI creatinine equation that estimates kidney function without a race variable. PATIENT WAS FASTINGP ERFORMED BY: CHITRA Fregosolin[address] [id number] GFR/1.73 sq M.predicted among non-blacks CKD-EPI (S/P/Bld) [Vol rate/Area] 78 mL/min/1.73 Normal [facility]; [facility] Work Phone: Comment on above: PATIENT WAS FASTINGP ERFORMED BY: CHITRA [facility] Eozyyz20[address]Dublin [place] [id number] Globulin (S) [Mass/Vol] 2.7 g/dL Normal 1.5-4.5 [facility]; [facility] Work Phone: Comment on above: PATIENT WAS FASTINGP ERFORMED BY: [facility] Lwacnt4446 [address] RoadDublin [place] [id number] Glucose [Mass/Vol] 106 mg/dL Abnormal 65-99 [facility] Internal Medicine; [facility] Work Phone: Comment on above: PATIENT WAS FASTINGP ERFORMED BY: [facility] Vylhqs5248 [address] RoadDublin [place] [id number] Potassium [Moles/Vol] 4.5 mmol/L Normal 3.5-5.2 [facility]; [facility] Work Phone: Comment on above: PATIENT WAS FASTINGP ERFORMED BY: [facility] Fppkyf8524 [address] RoadDublin [place] [id number] Protein [Mass/Vol] 7.0 g/dL Normal 6.0-8.5 [facility] Internal Medicine; [facility] Work Phone: Comment on above: PATIENT WAS FASTINGP ERFORMED BY: [facility] Ziovja9225 [address] RoadDublin [place] [id number] Sodium [Moles/Vol] 139 mmol/L Normal 134-144 [facility] Internal Medicine; [facility] Work Phone: Comment on above: PATIENT WAS FASTINGP ERFORMED BY: [facility] Kfnkzt0438 [address] RoadDublin [place] [id number] Urea nitrogen [Mass/Vol] 13 mg/dL Normal 8-27 [facility] Internal Medicine; [facility] Work Phone: Comment on above: PATIENT WAS FASTINGP ERFORMED BY: [facility] Jswewt2813 [address] RoadDublin [place] [id number] Urea nitrogen/Creatinine [Mass ratio] 17 mg/mg Normal 12-28 [facility]; [facility] Work Phone: Comment on above: PATIENT WAS FASTINGP ERFORMED BY: CB [facility] Dljrqw[address] [id number] TSH (86355)Ordered By: Mis fields Cart Attendant on 02-01-2021 TSH Qn 1.790 {uIU/mL} Normal 0.450-4.500 [facility] Internal Medicine; [facility] Work Phone: Comment on above: PATIENT WAS FASTINGP ERFORMED BY: CB [facility] Htmhay[address] [id number] Blood Glucose , Office ([phone])Ordered By: Anaya Orlando on 11-21-2020 Glucose Glucometer (BldC) [Moles/Vol] 98 1 Normal [facility]; [facility] Work Phone: HgA1C , Office ([phone])Ordere d By: Anaya Orlando on 11-21-2020 HbA1c (Bld) [Mass fraction] 6.0 % Normal 4.6 - 7.1 [facility]; [facility] Work Phone: CALCIFIDIOL (91055) VIT D 25 Ordered By: Spinning Mule Operator on 09-13-2020 25-hydroxyvitamin D [Mass/Vol] 44.0 ng/mL Normal 30.0-100.0 [facility]; [facility] Work Phone: Comment on above: Vitamin D deficiency has been defined by the Loving ofMedicine and an Endocrine Society practice guideline as alevel of serum 25-OH vitamin D less than 20 ng/mL (1,2).The Endocrine Society went on to further define vitamin Dinsufficiency as a level between 21 and 29 ng/mL (2).1. IOM (Loving of Medicine). 2010. Dietary reference intakes for calcium and D. [place]: The National Academies Press.2. Jenny MF, Ryan ALEJANDRO, [facility] SOUSA, et al. Evaluation, treatment, and prevention of vitamin D deficiency: an Endocrine Society clinical practice guideline. JCEM. 2010; 96(7):1911-30. Test(s) 807217-YBX-S ; 422598-SBF-Q; 818703-Alccurbwwixuu; 411792-Dsafgdpspkm, Total; 652183-JSI-B (Total); 828003-Zlsmv LDL-P; 731301-OVT Size; 432343-MY-SZ Scorewas developed and its performance characteristics determinedby FlightStats. It has not been cleared or approved by the Foodand Drug Administration.PATIENT WAS FASTINGPERFORMED BY: Allmoxy[address] [id number] BY: Tiny PicturesNorthern Navajo Medical CenterEegcky[address] [id number] NMR Profile (23095)Ordered B y: Spinning Mule Operator on 09-13-2020 Cholesterol [Mass/Vol] 192 mg/dL Normal 100-199 [facility]; [facility] Work Phone: Comment on above: Test(s) 400253-IMR-G ; 414223-JRO-S; 384146-Nqeectmipslnh; 118098-Lfasbblaxso, Total; 209128-BWR-I (Total); 983737-Bmnwe LDL-P; 818075-UDM Size; 386977-PW-ZZ Scorewas developed and its performance characteristics determinedby FlightStats. It has not been cleared or approved by the Foodand Drug Administration.PATIENT WAS FASTINGPERFORMED BY: Allmoxy[address] [id number] BY: Tiny Pictures Pcvhpt[address] [id number] Cholesterol in HDL [Mass/Vol] 80 mg/dL Normal [facility]; [facility] Work Phone: Comment on above: Test(s) 464996-GKP-N ; 967495-ODP-W; 318848-Wdvggyyfjtrcb; 305241-Jirczqxkomw, Total; 985423-FPD-Y (Total); 170375-Oafvh LDL-P; 989303-SDO Size; 215926-ME-WP Scorewas developed and its performance characteristics determinedby FlightStats. It has not been cleared or approved by the Foodand Drug Administration.PATIENT WAS FASTINGPERFORMED BY: Allmoxy[address] [id number] BY: Tiny Pictures Yqwhdj[address] [id number] Lipoprotein.alpha [Moles/Vol] 45.9 umol/L Normal [facility]; [facility] Work Phone: Comment on above: Test(s) 626567-WBB-M ; 229369-ARY-P; 645056-Byhgwvarvgdky; 488664-Kkhyqqcoerr, Total; 959188-JTW-F (Total); 912843-Nkexf LDL-P; 362794-GGZ Size; 284353-NL-PO Scorewas developed and its performance characteristics determinedby FlightStats. It has not been cleared or approved by the Foodand Drug Administration.PATIENT WAS FASTINGPERFORMED BY: Tiny Pictures[address] [id number] BY: Tiny Pictures Jppxyk9773 [facility]oChristian Hospital [id number] Lipoprotein.beta.subpa rticle [Entitic length] 21.2 nm Normal [facility]; [facility] Work Phone: Comment on above: INTERPRETATIVE INFORMATION PARTICLE CONCENTRATION AND SIZE <--Lower CVD Risk Higher CVD Risk--> LDL AND HDL PARTICLES Percentile in Reference Population HDL-P (total) High 75th 50th 25th Low >34.9 34.9 30.5 26.7 <26.7 . Small LDL-P Low 25th 50th 75th High <117 117 527 839 >839 . LDL Size <-Large (Pattern A)-> <-Small (Pattern B)-> 23.0 20.6 20.5 19.0 Small LDL-P and LDL Size are associated with CVD risk, but not afterLDL-P is taken into account. Test(s) 880362-ABI-U ; 299604-YFZ-W; 280799-Iehpahhkypoyv; 676409-Vpdcqchdjpb, Total; 521421-VNG-I (Total); 969132-Vfktv LDL-P; 660345-BKA Size; 301432-HH-AL Scorewas developed and its performance characteristics determinedby FlightStats. It has not been cleared or approved by the Foodand Drug Administration.PATIENT WAS FASTINGPERFORMED BY: [employer] DBA eGifter [address] [id number] BY: Owlient70 [facility]oChristian [facility] [id number] Lipoprotein.beta.subpa rticle [Moles/Vol] 1019 nmol/L Abnormal [facility]; [facility] Work Phone: Comment on above: Low < 1000 Moderate 1000 - 1299 Borderline-High 1300 - 1599 High 1600 - 2000 Very High > 2000 Test(s) 979681-JFV-V ; 963079-REY-N; 432566-Zljskwhdcupxg; 767453-Tfwyvcbcklb, Total; 064824-JZH-L (Total); 315032-Wziqu LDL-P; 240152-PMV Size; 889885-SC-TV Scorewas developed and its performance characteristics determinedby FlightStats. It has not been cleared or approved by the Foodand Drug Administration.PATIENT WAS FASTINGPERFORMED BY: [employer] D[employer] eGifter [address] [id number] BY: Owlient70 TamayoFreeman Orthopaedics & Sports MedicineAltavozCentral Carolina Hospital [id number] Lipoprotein.beta.subpa rticle.small [Moles/Vol] 463 nmol/L Normal [facility]; [facility] Work Phone: Comment on above: Test(s) 236793-NQV-P ; 835834-ALZ-O; 516628-Flxjqoejeyijs; 684050-Hoojaopqxsy, Total; 829538-TXI-W (Total); 307283-Fbrze LDL-P; 092388-NHA Size; 127990-GT-CR Scorewas developed and its performance characteristics determinedby FlightStats. It has not been cleared or approved by the Foodand Drug Administration.PATIENT WAS FASTINGPERFORMED BY: Allmoxy[address] [id number] BY: Owlient70 [employer] [id number] Triglyceride [Mass/Vol] 102 mg/dL Normal 0-149 [facility]; [facility] Work Phone: Comment on above: Test(s) 913203-PVP-J ; 901343-FNW-F; 166125-Dyxxudrrpskwo; 890700-Kucgsujhvnt, Total; 731777-SAB-W (Total); 383157-Rdffv LDL-P; 559099-ONI Size; 721329-EA-RI Scorewas developed and its performance characteristics determinedby FlightStats. It has not been cleared or approved by the Foodand Drug Administration.PATIENT WAS FASTINGPERFORMED BY: Allmoxy[address] [id number] BY: Owlient70 [employer] [id number] NMR Profile (46183) 94 mg/dL Normal 0-99 [facility] Internal Medicine; [facility] Work Phone: Comment on above: . Optimal < 100 Abov e optimal 100 - 129 Borderline 130 - 159 High 160 - 189 Very high > 189 . Test(s) 976347-GQH-I ; 494283-IIW-E; 060463-Dicmifjedjeyh; 768816-Bdprjtjszne, Total; 140863-BXP-F (Total); 929111-Cevkt LDL-P; 915659-DGP Size; 634024-XI-AF Scorewas developed and its performance characteristics determinedby FlightStats. It has not been cleared or approved by the Foodand Drug Administration.PATIENT WAS FASTINGPERFORMED BY: [employer] DBA eGifter [address] [id number] BY: Catacel[address] ShopItCentral Carolina Hospital [id number] C-REACT PROT HIGH SENS(hsCRP ) (68617)Ordered By: Spinning Mule Operator on 08-01-2020 CRP High sensitivity method [Mass/Vol] 12.00 mg/L Abnormal 0.00-3.00 [facility]; [facility] Work Phone: Comment on above: Relative Risk for Fu ture Cardiovascular Event Low <1.00 Average 1.00 - 3.00 High >3.00 Fax Results to ; A courtesy copy of this report has been sent to [phone] NOT FASTINGPERFORMED BY: Catacel[address] [id number] CALCIFEDIOL (90110)Ordered B y: Spinning Mule Operator on 08-01-2020 25-hydroxyvitamin D [Mass/Vol] 39.5 ng/mL Normal 30.0-100.0 [facility]; [facility] Work Phone: Comment on above: Vitamin D deficiency has been defined by the Loving ofMer[facility] Centerc[facility] and an Endocrine Society practice guideline as alevel of serum 25-OH vitamin D less than 20 ng/mL (1,2).The Endocrine Society went on to further define vitamin Dinsufficiency as a level between 21 and 29 ng/mL (2).1. IOM (Loving of Medicine). 2010. Dietary reference intakes for calcium and D. [place]: The National Academies Press.2. Jenny MF, Ryan ALEJANDRO, [facility], et al. Evaluation, treatment, and prevention of vitamin D deficiency: an Endocrine Society clinical practice guideline. JCEM. 2010; 96(7):1911-30. Fax Results to [phone]; A courtesy copy of this report has been sent to [phone] NOT FASTINGPERFORMED BY: Catacel[address] [id number] HEPATITIS C ANTIBODY (99757) Ordered By: Spinning Mule Operator on 08-01-2020 HCV Ab Signal/Cutoff IA [Rel units/Vol] {ratio} Normal 0.0-0.9 [facility]; [facility] Work Phone: Comment on above: Negative: < 0.8 Inde terminate: 0.8 - 0.9 Positive: > 0.9 . The CDC recommends that a positive HCV antibody result be followed up with a HCV Nucleic Acid Amplification test (054993). PATIENT NOT FASTINGP ERFORMED BY: Catacel6370 [employer] [id number] HGB A1C (09308)Ordered By: S ystem Cart Attendant on 08-01-2020 HbA1c (Bld) [Mass fraction] 6.1 % Abnormal 4.8-5.6 [facility]; [facility] Work Phone: Comment on above: . Prediabetes: 5.7 - 6.4 Diabetes: >6.4 Glycemic control for adults with diabetes: <7.0 Fax Results to ; A courtesy copy of this report has been sent to [phone] NOT FASTINGPERFORMED BY: CHITRA WhatsNew Asia6370 VadioNovant Health, [facility] [id number] METABOLIC PANEL, COMPREHENSI VE (68699)Ordered By: Spinning Mule Operator on 08-01-2020 Albumin [Mass/Vol] 4.5 g/dL Normal 3.8-4.8 [facility] Internal Medicine; [facility] Work Phone: Comment on above: Fax Results to ; A courtesy copy of this report has been sent to [phone] NOT FASTINGPERFORMED BY: Tiny Pictures Lxhkra[address] [id number] Information: [facility] Albumin/Globulin [Mass ratio] 1.9 {ratio} Normal 1.2-2.2 [facility]; [facility] Work Phone: Comment on above: Fax Results to ; A courtesy copy of this report has been sent to [phone] NOT FASTINGPERFORMED BY: WhatsNew Asia[address] PaylocityNovant Health, [facility] [id number] Information: [facility] ALP [Catalytic activity/Vol] 82 U/L Normal 48-121 [facility]; [facility] Work Phone: Comment on above: Fax Results to [phone]; A courtesy copy of this report has been sent to [phone] NOT FASTINGPERFORMED BY: CHITRA LabCo Tsnszb5[address] [facility] [id number] Information: [facility] ALT [Catalytic activity/Vol] 18 U/L Normal 0-32 [facility]; [facility] Work Phone: Comment on above: Fax Results to [facility]-0 12-0905; A courtesy copy of this report has been sent to [phone] NOT FASTINGPERFORMED BY: [facility] Swlgkx9[address] [facility] [id number] Information: [facility] AST [Catalytic activity/Vol] 16 U/L Normal 0-40 [facility]; [facility] Work Phone: Comment on above: Fax Results to [phone]; A courtesy copy of this report has been sent to [phone] NOT FASTINGPERFORMED BY: LabM[facility] Entcdf[address] [id number] Information: [facility] Bilirubin [Mass/Vol] 0.3 mg/dL Normal 0.0-1.2 [facility] Internal Medicine; [facility] Work Phone: Comment on above: Fax Results to [phone]; A courtesy copy of this report has been sent to [phone] NOT FASTINGPERFORMED BY: LabM[facility] Zteros[address] [id number] Information: [facility] Calcium [Mass/Vol] 9.8 mg/dL Normal 8.7-10.3 [facility] Internal Medicine; [facility] Work Phone: Comment on above: Fax Results to ; A courtesy copy of this report has been sent to [phone] NOT FASTINGPERFORMED BY: LabM[facility] Yxnmos[address] [id number] Information: [facility] Chloride [Moles/Vol] 102 mmol/L Normal 96-106 [facility] rehensive Internal Medicine; [facility] Work Phone: Comment on above: Fax Results to ; A courtesy copy of this report has been sent to [phone] NOT FASTINGPERFORMED BY: CHITRA Tiny PicturesNorthern Navajo Medical CenterGtfynw[address] [id number] Information: [facility] CO2 [Moles/Vol] 27 mmol/L Normal 20-29 [facility] Internal Medicine; [facility] Work Phone: Comment on above: Fax Results to ; A courtesy copy of this report has been sent to [phone] NOT FASTINGPERFORMED BY: CHITRA Tiny PicturesRaritan Bay Medical CenterLeqirf[address] [id number] Information: [facility] Creatinine [Mass/Vol] 0.73 mg/dL Normal 0.57-1.00 [facility] prehensive Internal Medicine; [facility] Work Phone: Comment on above: Fax Results to ; A courtesy copy of this report has been sent to [phone] NOT FASTINGPERFORMED BY: CHITRA Treg[facility] Memorial HospitalDigital Global Systemsdavid Cumuzf[address] [id number] Information: [facility] GFR/1.73 sq M.predicted among blacks CKD-EPI (S/P/Bld) [Vol rate/Area] 97 mL/min/1.73 Normal [facility]; [facility] Work Phone: Comment on above: [facility] currently reports eGFR in compliance with the current recommendations of the National Kidney Foundation. [facility] will update reporting as new guidelines are published from the NKF-ASN Task force. Fax Results to ; A courtesy copy of this report has been sent to [phone] NOT FASTINGPERFORMED BY: CHITRA [facility] [id number] Information: [facility] GFR/1.73 sq M.predicted among non-blacks CKD-EPI (S/P/Bld) [Vol rate/Area] 84 mL/min/1.73 Normal [facility]; [facility] Work Phone: Comment on above: Fax Results to [phone]; A courtesy copy of this report has been sent to [phone] NOT FASTINGPERFORMED BY: uberVU[address] [id number] Information: [facility] Globulin (S) [Mass/Vol] 2.4 g/dL Normal 1.5-4.5 [facility] Internal Medicine; [facility] Work Phone: Comment on above: Fax Results to [phone]; A courtesy copy of this report has been sent to [phone] NOT FASTINGPERFORMED BY: uberVU[address] [id number] Information: [facility] Glucose [Mass/Vol] 111 mg/dL Abnormal 65-99 [facility] Internal Medicine; [facility] Work Phone: Comment on above: Fax Results to [phone]; A courtesy copy of this report has been sent to [phone] NOT FASTINGPERFORMED BY: uberVU[address] [id number] Information: [facility] Potassium [Moles/Vol] 4.7 mmol/L Normal 3.5-5.2 [facility] Internal Medicine; [facility] Work Phone: Comment on above: Fax Results to ; A courtesy copy of this report has been sent to [phone] NOT FASTINGPERFORMED BY: Tiny Pictures Vxduth[address] [id number] Information: [facility] Protein [Mass/Vol] 6.9 g/dL Normal 6.0-8.5 [facility] Internal Medicine; [facility] Work Phone: Comment on above: Fax Results to ; A courtesy copy of this report has been sent to [phone] NOT FASTINGPERFORMED BY: CHITRA WhatsNew Asia6370 VadioNovant Health, [facility] [id number] Information: [facility] Sodium [Moles/Vol] 141 mmol/L Normal 134-144 [facility] Internal Medicine; [facility] Work Phone: Comment on above: Fax Results to ; A courtesy copy of this report has been sent to [phone] NOT FASTINGPERFORMED BY: uberVU70 VadioNovant Health, [facility] [id number] Information: [facility] Urea nitrogen [Mass/Vol] 11 mg/dL Normal 8-27 [facility]; [facility] Work Phone: Comment on above: Fax Results to [facility]-5 [phone]; A courtesy copy of this report has been sent to [phone] NOT FASTINGPERFORMED BY: CHITRA Tiny Pictures Bxpkct[address] [id number] Information: [facility] Urea nitrogen/Creatinine [Mass ratio] 15 mg/mg Normal 12-28 [facility]; [facility] Work Phone: Comment on above: Fax Results to [phone]; A courtesy copy of this report has been sent to [phone] NOT FASTINGPERFORMED BY: Tiny Pictures Gdbmne[address] [id number] Information: [facility] TSH (THYROID STIMULATING HOR JOHN) (41846)Ordered By: Spinning Mule Operator on 08-01-2020 TSH Qn 0.543 {uIU/mL} Normal 0.450-4.500 [facility] Internal Medicine; [facility] Work Phone: Comment on above: Fax Results to [phone]; A courtesy copy of this report has been sent to [phone] NOT FASTINGPERFORMED BY: HealthQx Mxsnlm[address] [id number] CBC with auto diff (56654)Or dered By: Spinning Mule Operator on 05-01-2020 Basophils (Bld) [#/Vol] 0.0 {x10E3/uL} Normal 0.0-0.2 [facility]; [facility] Work Phone: Comment on above: Test(s) 686991-WTV-T ; 439531-IFN-M; 442962-Eqnjnddbwcunk; 084717-Xpslesheepc, Total; 990275-QDD-V (Total); 524102-Qfixz LDL-P; 090523-NEE Size; 687788-NN-DJ Scorewas developed and its performance characteristics determinedby FlightStats. It has not been cleared or approved by the Foodand Drug Administration.PATIENT WAS FASTINGPERFORMED BY: Allmoxy[address] [id number] BY: [facility]acel6[facility] [id number] Basophils (Bld) [#/Vol] 0.0 10*3/uL Normal 0.0-0.2 [facility]; [facility] Work Phone: Comment on above: Test(s) 805222-GFT-U ; 238917-IVG-E; 285138-Cjqtdisdduxbn; 247392-Gyuucmpulwp, Total; 201961-JWD-H (Total); 788174-Ekikk LDL-P; 955933-LUH Size; 201464-ML-NI Scorewas developed and its performance characteristics determinedby FlightStats. It has not been cleared or approved by the Foodand Drug Administration.PATIENT WAS FASTINGPERFORMED BY: [email or web address] eGifter [address] [id number] BY: Catacel[address] [facility] [id number] Basophils/100 WBC (Bld) 1 % Normal [facility]; [facility] Work Phone: Comment on above: Test(s) 638926-GVO-D ; 547073-UFJ-D; 357168-Datmrjpckiwhj; 516366-Dnvwabzorld, Total; 667823-XSC-Z (Total); 370798-Knofb LDL-P; 511781-PBC Size; 388947-IX-OK Scorewas developed and its performance characteristics determinedby FlightStats. It has not been cleared or approved by the Foodand Drug Administration.PATIENT WAS FASTINGPERFORMED BY: Dheere Bolo [address] [id number] BY: Tiny PicturesNorthern Navajo Medical CenterGwrwsv0995 [facility] [id number] Eosinophils (Bld) [#/Vol] 0.2 {x10E3/uL} Normal 0.0-0.4 [facility]; [facility] Work Phone: Comment on above: Test(s) 453465-SXN-M ; 511873-VQC-V; 868413-Mcxfobncgccyy; 096739-Plffqcvzbot, Total; 598957-GRW-S (Total); 484019-Bxipc LDL-P; 496823-BHX Size; 442034-PQ-VX Scorewas developed and its performance characteristics determinedby FlightStats. It has not been cleared or approved by the Foodand Drug Administration.PATIENT WAS FASTINGPERFORMED BY: Dheere Bolo [address] [id number] BY: Tiny PicturesRaritan Bay Medical CenterTwhmsm1202 [facility] [id number] Eosinophils (Bld) [#/Vol] 0.2 10*3/uL Normal 0.0-0.4 [facility]; [facility] Work Phone: Comment on above: Test(s) 117897-RGK-Q ; 407496-IZB-J; 552060-Ztishkgfdjojk; 317017-Flojdmcmfwz, Total; 758822-LKA-T (Total); 930685-Hslnx LDL-P; 473072-BRQ Size; 719670-WO-JU Scorewas developed and its performance characteristics determinedby FlightStats. It has not been cleared or approved by the Foodand Drug Administration.PATIENT WAS FASTINGPERFORMED BY: [email or web address] [address] [id number] BY: Tiny PicturesRaritan Bay Medical CenterMquhjq3621 [facility] [id number] Eosinophils/100 WBC (Bld) 2 % Normal [facility]; [facility] Work Phone: Comment on above: Test(s) 024578-HQN-I ; 719890-XGC-P; 989579-Cpnypnxekykaz; 923304-Ecxcouavgdu, Total; 690141-RLS-C (Total); 064720-Qsrrh LDL-P; 511614-PQH Size; 743566-BO-XT Scorewas developed and its performance characteristics determinedby FlightStats. It has not been cleared or approved by the Foodand Drug Administration.PATIENT WAS FASTINGPERFORMED BY: [email or web address] [address] [id number] BY: [employer] Mzgbto3326 [facility] [id number] Erythrocyte distribution width (RBC) [Ratio] 12.5 % Normal 11.7-15.4 [facility]; [facility] Work Phone: Comment on above: Test(s) 670130-CSS-R ; 720498-YBA-G; 646653-Ezipfrvqsycco; 992745-Mggrimhuayo, Total; 302829-VYA-C (Total); 178915-Mhqhh LDL-P; 777633-IID Size; 170032-WA-OO Scorewas developed and its performance characteristics determinedby FlightStats. It has not been cleared or approved by the Foodand Drug Administration.PATIENT WAS FASTINGPERFORMED BY: [email or web address] [address] [id number] BY: HealthQxRaritan Bay Medical CenterPqmjan6578 [facility] [id number] Hematocrit (Bld) [Volume fraction] 41.3 % Normal 34.0-46.6 [facility]; [facility] Work Phone: Comment on above: Test(s) 605458-FLP-O ; 782776-MUD-V; 065021-Chsnpdyilzdei; 019348-Yzddurnoixr, Total; 019649-IPG-X (Total); 807872-Vwhxf LDL-P; 415362-NYL Size; 151601-QL-JV Scorewas developed and its performance characteristics determinedby FlightStats. It has not been cleared or approved by the Foodand Drug Administration.PATIENT WAS FASTINGPERFORMED BY: [email or web address] [address] [id number] BY: Tiny PicturesCynthia Ville 1915870 [facility] [id number] Hemoglobin (Bld) [Mass/Vol] 13.8 g/dL Normal 11.1-15.9 [facility]; [facility] Work Phone: Comment on above: Test(s) 668793-DIM-L ; 248303-RSJ-Q; 010697-Woiouwuvmtuel; 745058-Cdmgkmbjlse, Total; 749708-VOO-Q (Total); 801018-Iyqpc LDL-P; 988337-PFA Size; 932513-IP-EG Scorewas developed and its performance characteristics determinedby FlightStats. It has not been cleared or approved by the Foodand Drug Administration.PATIENT WAS FASTINGPERFORMED BY: [email or web address] [address] [id number] BY: [employer] Qxvcyh3518 [facility] [id number] Immature granulocytes (Bld) [#/Vol] 0.0 {x10E3/uL} Normal 0.0-0.1 [facility]; [facility] Work Phone: Comment on above: Test(s) 371965-KAO-H ; 777831-AVV-S; 795840-Uwmkjtwwlxkip; 075291-Zcgyqfgllgk, Total; 652070-MXK-L (Total); 101749-Exqts LDL-P; 268377-JWH Size; 108505-BZ-OZ Scorewas developed and its performance characteristics determinedby FlightStats. It has not been cleared or approved by the Foodand Drug Administration.PATIENT WAS FASTINGPERFORMED BY: OpenTable[address] [id number] BY: Tiny PicturesNorthern Navajo Medical CenterSilzjf3947 [facility] [id number] Immature granulocytes (Bld) [#/Vol] 0.0 10*3/uL Normal 0.0-0.1 [facility]; [facility] Work Phone: Comment on above: Test(s) 463439-DOK-S ; 644555-KPE-J; 277739-Swyivrwjyyigs; 200177-Mrbwwzjsncd, Total; 720416-QVI-C (Total); 804139-Fkyaz LDL-P; 694505-ZXT Size; 581946-HT-KU Scorewas developed and its performance characteristics determinedby FlightStats. It has not been cleared or approved by the Foodand Drug Administration.PATIENT WAS FASTINGPERFORMED BY: [email or web address] [address] [id number] BY: Owlient[address] [facility] [id number] Immature granulocytes/100 WBC (Bld) 0 % Normal [facility]; [facility] Work Phone: Comment on above: Test(s) 756500-CDZ-L ; 001220-UUY-E; 467891-Hdiruztgfzhfd; 235534-Ihyfctdaoax, Total; 729646-MOQ-J (Total); 437881-Jsycm LDL-P; 909370-WSE Size; 875469-TJ-LO Scorewas developed and its performance characteristics determinedby FlightStats. It has not been cleared or approved by the Foodand Drug Administration.PATIENT WAS FASTINGPERFORMED BY: OpenTable[address] [id number] BY: HealthQxCynthia Ville 1915870 [facility] [id number] Lymphocytes (Bld) [#/Vol] 1.8 {x10E3/uL} Normal 0.7-3.1 [facility]; [facility] Work Phone: Comment on above: Test(s) 568075-GXP-Y ; 066206-PCY-H; 479967-Wuyaoprexddkg; 050728-Hxqohhekxds, Total; 286072-ZNN-Z (Total); 236870-Vddgr LDL-P; 619581-KGB Size; 515302-WI-FI Scorewas developed and its performance characteristics determinedby FlightStats. It has not been cleared or approved by the Foodand Drug Administration.PATIENT WAS FASTINGPERFORMED BY: [email or web address] [address] [id number] BY: [employer] Ogtzxf5717 [facility] [id number] Lymphocytes (Bld) [#/Vol] 1.8 10*3/uL Normal 0.7-3.1 [facility]; [facility] Work Phone: Comment on above: Test(s) 658805-HQO-T ; 857369-CKG-H; 395639-Gduknkyiszegy; 972924-Dkslfembxsf, Total; 792485-ZGG-C (Total); 643845-Szcsx LDL-P; 967853-VHQ Size; 092348-WF-GG Scorewas developed and its performance characteristics determinedby FlightStats. It has not been cleared or approved by the Foodand Drug Administration.PATIENT WAS FASTINGPERFORMED BY: [email or web address] [address] [id number] BY: [employer] Eravyi6647 [facility] [id number] Lymphocytes/100 WBC (Bld) 27 % Normal [facility]; [facility] Work Phone: Comment on above: Test(s) 500578-KFR-R ; 099299-ZYH-Y; 015918-Luxtwmgumumzk; 879860-Yhahkvkhlqa, Total; 303462-MUH-Q (Total); 109947-Tttun LDL-P; 120915-SHN Size; 103657-OH-BM Scorewas developed and its performance characteristics determinedby FlightStats. It has not been cleared or approved by the Foodand Drug Administration.PATIENT WAS FASTINGPERFORMED BY: [email or web address] [address] [id number] BY: Catacel6[address] [facility] [id number] MCH (RBC) [Entitic mass] 29.7 pg Normal 26.6-33.0 [facility]; [facility] Work Phone: Comment on above: Test(s) 847332-QKA-H ; 397988-BXE-N; 738850-Uofzbkljolbit; 775578-Nzwdxeplcpz, Total; 889344-YTK-Z (Total); 930115-Dbvtb LDL-P; 099414-WDX Size; 589766-AG-HA Scorewas developed and its performance characteristics determinedby FlightStats. It has not been cleared or approved by the Foodand Drug Administration.PATIENT WAS FASTINGPERFORMED BY: Allmoxy[address] [id number] BY: Catacel6[address] [facility] [id number] MCHC (RBC) [Mass/Vol] 33.4 g/dL Normal 31.5-35.7 [facility]; [facility] Work Phone: Comment on above: Test(s) 889444-ASC-K ; 693104-UTM-P; 249249-Aznxnzxtsgogz; 680923-Cuqbhadssnm, Total; 903050-FSN-S (Total); 452962-Rabqt LDL-P; 216566-MZH Size; 365926-RP-RO Scorewas developed and its performance characteristics determinedby FlightStats. It has not been cleared or approved by the Foodand Drug Administration.PATIENT WAS FASTINGPERFORMED BY: [email or web address] [address] [id number] BY: Catacel[address] [facility] [id number] MCV (RBC) [Entitic vol] 89 fL Normal 79-97 [facility]; [facility] Work Phone: Comment on above: Test(s) 764870-MOP-D ; 971889-EBA-F; 749804-Blkxayitpdufu; 102112-Vazzdxeybqg, Total; 958412-IYM-S (Total); 603038-Ditoy LDL-P; 154143-WHI Size; 539239-CY-YL Scorewas developed and its performance characteristics determinedby FlightStats. It has not been cleared or approved by the Foodand Drug Administration.PATIENT WAS FASTINGPERFORMED BY: Tiny Pictures[address] [id number] BY: Tiny PicturesCynthia Ville 1915870 [facility] [id number] Monocytes (Bld) [#/Vol] 0.6 {x10E3/uL} Normal 0.1-0.9 [facility]; [facility] Work Phone: Comment on above: Test(s) 231518-BJC-R ; 026668-WAU-V; 749471-Lftlmubmgtual; 722453-Sbhgkyxcrhx, Total; 798437-HUV-A (Total); 912654-Dvowp LDL-P; 242598-HQJ Size; 532603-UM-SZ Scorewas developed and its performance characteristics determinedby FlightStats. It has not been cleared or approved by the Foodand Drug Administration.PATIENT WAS FASTINGPERFORMED BY: Tiny Pictures[address] [id number] BY: Tiny PicturesRaritan Bay Medical CenterLxwwii2502 [facility] [id number] Monocytes (Bld) [#/Vol] 0.6 10*3/uL Normal 0.1-0.9 [facility]; [facility] Work Phone: Comment on above: Test(s) 730816-SIO-Q ; 437306-QQB-L; 476034-Gazftdgotkjdd; 007622-Xmkjgawerkx, Total; 596003-CTY-H (Total); 424868-Vbqfu LDL-P; 344260-ZDC Size; 872377-WT-SZ Scorewas developed and its performance characteristics determinedby FlightStats. It has not been cleared or approved by the Foodand Drug Administration.PATIENT WAS FASTINGPERFORMED BY: Tiny Pictures[address] [id number] BY: Tiny PicturesCynthia Ville 1915870 [facility] [id number] Monocytes/100 WBC (Bld) 9 % Normal [facility]; [facility] Work Phone: Comment on above: Test(s) 535128-CKB-L ; 811572-DPA-R; 237263-Eagrnyzoqlnwg; 707506-Uwbioiceugg, Total; 614305-HBY-M (Total); 012037-Tlcxe LDL-P; 312446-SIU Size; 262578-OH-DN Scorewas developed and its performance characteristics determinedby FlightStats. It has not been cleared or approved by the Foodand Drug Administration.PATIENT WAS FASTINGPERFORMED BY: Dheere Bolo [address] [id number] BY: Tiny PicturesNorthern Navajo Medical CenterZojzto5118 [facility] [id number] Neutrophils (Bld) [#/Vol] 4.0 {x10E3/uL} Normal 1.4-7.0 [facility]; [facility] Work Phone: Comment on above: Test(s) 147893-DRL-F ; 525159-TGO-X; 303717-Bqbmgfadfgmsl; 684589-Ukwhtkrneuo, Total; 053399-FVH-V (Total); 071211-Glmez LDL-P; 660811-TXD Size; 130751-VT-SD Scorewas developed and its performance characteristics determinedby FlightStats. It has not been cleared or approved by the Foodand Drug Administration.PATIENT WAS FASTINGPERFORMED BY: Tiny Pictures[address] [id number] BY: Tiny PicturesRaritan Bay Medical CenterSquwxo2042 [facility] [id number] Neutrophils (Bld) [#/Vol] 4.0 10*3/uL Normal 1.4-7.0 [facility]; [facility] Work Phone: Comment on above: Test(s) 453958-AJW-B ; 918596-LFD-C; 874404-Wvuofmazikmsr; 558177-Wubryhadxay, Total; 417935-IID-Z (Total); 410370-Rhhik LDL-P; 059623-WQD Size; 759153-LJ-RI Scorewas developed and its performance characteristics determinedby FlightStats. It has not been cleared or approved by the Foodand Drug Administration.PATIENT WAS FASTINGPERFORMED BY: [email or web address] [address] [id number] BY: [employer] Kzftpm5289 [facility] [id number] Neutrophils/100 WBC (Bld) 61 % Normal [facility]; [facility] Work Phone: Comment on above: Test(s) 106587-AFY-Q ; 915139-BAE-H; 216973-Knyzzlnyivsol; 842654-Fuynwubbgfx, Total; 038501-XDG-F (Total); 038145-Fyhqj LDL-P; 432592-YBV Size; 860121-CK-XV Scorewas developed and its performance characteristics determinedby FlightStats. It has not been cleared or approved by the Foodand Drug Administration.PATIENT WAS FASTINGPERFORMED BY: [email or web address] eGifter [address] [id number] BY: Owlient70 [facility] [id number] Platelets (Bld) [#/Vol] 332 {x10E3/uL} Normal 150-450 [facility]; [facility] Work Phone: Comment on above: Test(s) 452950-AMZ-D ; 927192-KGD-Q; 347525-Olmkfrwqzjfuz; 422929-Uweknwckxwp, Total; 811295-JKS-P (Total); 851084-Bygmi LDL-P; 559414-FCQ Size; 198033-QH-XW Scorewas developed and its performance characteristics determinedby FlightStats. It has not been cleared or approved by the Foodand Drug Administration.PATIENT WAS FASTINGPERFORMED BY: [email or web address] [address] [id number] BY: [employer] Lurktv6746 [facility] [id number] Platelets (Bld) [#/Vol] 332 10*3/uL Normal 150-450 [facility]; [facility] Work Phone: Comment on above: Test(s) 169215-TEM-B ; 154234-RDE-V; 714693-Qiomnzjjfyrjq; 585095-Zhsnwaddoso, Total; 135791-DNM-R (Total); 794458-Hajzo LDL-P; 893148-HEJ Size; 202357-AE-VJ Scorewas developed and its performance characteristics determinedby FlightStats. It has not been cleared or approved by the Foodand Drug Administration.PATIENT WAS FASTINGPERFORMED BY: Allmoxy[address] [id number] BY: Owlient70 [facility] [id number] RBC (Bld) [#/Vol] 4.64 {x10E6/uL} Normal 3.77-5.28 [facility]; [facility] Work Phone: Comment on above: Test(s) 334629-XAT-C ; 238296-GMG-I; 202601-Jvbzggimzgyum; 620973-Heanfzsthad, Total; 912836-AIT-X (Total); 743921-Zxgyi LDL-P; 568890-BIF Size; 010160-KU-GU Scorewas developed and its performance characteristics determinedby FlightStats. It has not been cleared or approved by the Foodand Drug Administration.PATIENT WAS FASTINGPERFORMED BY: Allmoxy[address] [id number] BY: Catacel6[address] [facility] [id number] RBC (Bld) [#/Vol] 4.64 10*6/uL Normal 3.77-5.28 [facility]; [facility] Work Phone: Comment on above: Test(s) 899359-CKO-U ; 952263-NMU-P; 214081-Agojoyvvvwemp; 474392-Hhwpvdhnsme, Total; 637352-JZB-O (Total); 219377-Sbsnv LDL-P; 892374-CYE Size; 006135-GT-ZE Scorewas developed and its performance characteristics determinedby FlightStats. It has not been cleared or approved by the Foodand Drug Administration.PATIENT WAS FASTINGPERFORMED BY: Allmoxy[address] [id number] BY: [employer] Nxhdap8410 [facility] [id number] WBC (Bld) [#/Vol] 6.6 {x10E3/uL} Normal 3.4-10.8 [facility]; [facility] Work Phone: Comment on above: Test(s) 475642-YZZ-A ; 924896-ASC-C; 836484-Ehufnxximqlrt; 243684-Gugvnfvrvki, Total; 224820-GOH-C (Total); 607116-Difrm LDL-P; 692415-QWT Size; 822772-DR-GD Scorewas developed and its performance characteristics determinedby FlightStats. It has not been cleared or approved by the Foodand Drug Administration.PATIENT WAS FASTINGPERFORMED BY: [email or web address] [address] [id number] BY: [employer]6[address] [facility] [id number] WBC (Bld) [#/Vol] 6.6 10*3/uL Normal 3.4-10.8 [facility] Internal Medicine; [facility] Work Phone: Comment on above: Test(s) 708026-CGN-G ; 714162-OPI-Z; 394764-Wkiesnlfqsoct; 627099-Kzoeewerglw, Total; 457749-OXR-I (Total); 364768-Kadfu LDL-P; 533431-ADM Size; 735934-VD-JB Scorewas developed and its performance characteristics determinedby FlightStats. It has not been cleared or approved by the Foodand Drug Administration.PATIENT WAS FASTINGPERFORMED BY: [employer] [address] [id number] BY: [employer]6[address] [facility] [id number] HGB A1C (50036)Ordered By: S ystem Cart Attendant on 05-01-2020 HbA1c (Bld) [Mass fraction] 6.1 % Abnormal 4.8-5.6 [facility]; [facility] Work Phone: Comment on above: . Prediabetes: 5.7 - 6.4 Diabetes: >6.4 Glycemic control for adults with diabetes: <7.0 do in 3mo ( may 19 210; Test(s) 330960-SLT-T; 249918-GOG-X; 020673-Kjmubndgmwhkl; 645746-Rlylnbhbyaf, Total; 676244-XND-H (Total); 308117-Uxkqc LDL-P; 273039-OOZ Size; 256103-AG-NV Scorewas developed and its performance characteristics determinedby FlightStats. It has not been cleared or approved by the Foodand Drug Administration.PATIENT WAS FASTINGPERFORMED BY: [employer] [facility] [id number] BY: Owlient70 [employer] [id number] METABOLIC PANEL, COMPREHENSI VE (86694)Ordered By: Spinning Mule Operator on 05-01-2020 Albumin [Mass/Vol] 4.2 g/dL Normal 3.8-4.8 [facility] Internal Medicine; [facility] Work Phone: Comment on above: Test(s) 509212-CUW-T ; 395814-VSP-R; 847107-Aldcquchrdwoi; 534426-Tvxhtdruwyv, Total; 959489-BWA-B (Total); 006781-Svznu LDL-P; 657732-LPT Size; 364271-GD-SC Scorewas developed and its performance characteristics determinedby FlightStats. It has not been cleared or approved by the Foodand Drug Administration.PATIENT WAS FASTINGPERFORMED BY: Allmoxyton1447 [facility] [id number] BY: Owlient70 [facility] [id number] Albumin/Globulin [Mass ratio] 1.4 {ratio} Normal 1.2-2.2 [facility]; [facility] Work Phone: Comment on above: Test(s) 375795-GEL-G ; 804743-QEW-X; 049088-Xtwnhjkhyqirn; 613196-Ffjxxhrffvo, Total; 277246-LQZ-I (Total); 755804-Bmwws LDL-P; 854092-YUV Size; 715754-EB-XW Scorewas developed and its performance characteristics determinedby FlightStats. It has not been cleared or approved by the Foodand Drug Administration.PATIENT WAS FASTINGPERFORMED BY: [employer] [address] [id number] BY: Owlient[address] [facility] [id number] ALP [Catalytic activity/Vol] 88 [iU]/L Normal 39-117 [facility]; [facility] Work Phone: Comment on above: Test(s) 524141-FTP-Y ; 483628-BTW-Z; 688739-Zssbanyoizuss; 734889-Umepzdbekfy, Total; 078193-VSO-Q (Total); 109675-Ydwnb LDL-P; 466396-MEM Size; 339025-YR-MR Scorewas developed and its performance characteristics determinedby FlightStats. It has not been cleared or approved by the Foodand Drug Administration.PATIENT WAS FASTINGPERFORMED BY: [employer] [address] [id number] BY: [employer] Managerlin6[address] [facility] [id number] ALP [Catalytic activity/Vol] 88 U/L Normal 39-117 [facility]; [facility] Work Phone: Comment on above: Test(s) 761852-FMF-R ; 257578-AJI-B; 322208-Elzmvyjdyqfsm; 874093-Rugjymzjcfr, Total; 924621-DUM-S (Total); 195519-Rgput LDL-P; 713317-CIZ Size; 739365-JE-IW Scorewas developed and its performance characteristics determinedby FlightStats. It has not been cleared or approved by the Foodand Drug Administration.PATIENT WAS FASTINGPERFORMED BY: [employer] [address] [id number] BY: Tiny PicturesRaritan Bay Medical CenterWumamj0404 [facility] [id number] ALT [Catalytic activity/Vol] 19 [iU]/L Normal 0-32 [facility]; [facility] Work Phone: Comment on above: Test(s) 445599-LNE-A ; 528915-DZC-P; 890242-Xlrkppvvppqwy; 070069-Kmdrzlrryae, Total; 865737-XHT-M (Total); 912168-Yfldm LDL-P; 020334-BJA Size; 227091-BR-MU Scorewas developed and its performance characteristics determinedby FlightStats. It has not been cleared or approved by the Foodand Drug Administration.PATIENT WAS FASTINGPERFORMED BY: Dheere Bolo [address] [id number] BY: Catacel6[address] [facility] [id number] ALT [Catalytic activity/Vol] 19 U/L Normal 0-32 [facility]; [facility] Work Phone: Comment on above: Test(s) 813581-PZA-P ; 462402-BXV-Y; 407678-Gdxwmkqncdrqg; 880348-Iodfyqqpycn, Total; 292983-NJD-A (Total); 105960-Kxxdz LDL-P; 661172-XMD Size; 761211-KP-FM Scorewas developed and its performance characteristics determinedby FlightStats. It has not been cleared or approved by the Foodand Drug Administration.PATIENT WAS FASTINGPERFORMED BY: Tiny Pictures[address] [id number] BY: Tiny PicturesRaritan Bay Medical CenterRicqnw79[address] [facility] [id number] AST [Catalytic activity/Vol] 13 [iU]/L Normal 0-40 [facility]; [facility] Work Phone: Comment on above: Test(s) 716253-WGJ-A ; 775781-DQO-T; 876596-Poqpmpptrtcgn; 316617-Kcmkojhkgcy, Total; 824059-DTN-N (Total); 007600-Utehw LDL-P; 665974-VSV Size; 840365-US-XT Scorewas developed and its performance characteristics determinedby FlightStats. It has not been cleared or approved by the Foodand Drug Administration.PATIENT WAS FASTINGPERFORMED BY: [email or web address] [address] [id number] BY: [employer] Pictures Gjqyeg1207 [employer] [id number] AST [Catalytic activity/Vol] 13 U/L Normal 0-40 [facility]; [facility] Work Phone: Comment on above: Test(s) 308650-TPK-Y ; 236517-UMC-O; 052115-Ivdbsedrnssfj; 103658-Srygiorirxm, Total; 669755-UEQ-H (Total); 182425-Lycgr LDL-P; 554166-EJJ Size; 011520-TT-SJ Scorewas developed and its performance characteristics determinedby FlightStats. It has not been cleared or approved by the Foodand Drug Administration.PATIENT WAS FASTINGPERFORMED BY: [email or web address] DBA eGifter [address] [id number] BY: Owlient70 [employer] [id number] Bilirubin [Mass/Vol] 0.2 mg/dL Normal 0.0-1.2 [facility] Internal Medicine; [facility] Work Phone: Comment on above: Test(s) 502870-ULU-F ; 541182-EGW-E; 785175-Vqxzvwestbwsc; 419934-Jnyrebdnyuh, Total; 489221-EHN-X (Total); 716847-Jcmgq LDL-P; 228105-DPT Size; 551202-DW-QD Scorewas developed and its performance characteristics determinedby FlightStats. It has not been cleared or approved by the Foodand Drug Administration.PATIENT WAS FASTINGPERFORMED BY: [email or web address] [address] [id number] BY: Catacel6370 [employer] [id number] Calcium [Mass/Vol] 9.8 mg/dL Normal 8.7-10.3 [facility] Internal Medicine; [facility] Work Phone: Comment on above: Test(s) 476623-BJE-F ; 286928-HKW-P; 895689-Wwglhmiwtnbuz; 751108-Oicuhcpmrdc, Total; 897174-VRW-C (Total); 309478-Betiq LDL-P; 192453-KUM Size; 432677-PI-ZC Scorewas developed and its performance characteristics determinedby FlightStats. It has not been cleared or approved by the Foodand Drug Administration.PATIENT WAS FASTINGPERFORMED BY: Allmoxy[address] [id number] BY: Owlient70 [facility] [id number] Chloride [Moles/Vol] 101 mmol/L Normal 96-106 [facility] Internal Medicine; [facility] Work Phone: Comment on above: Test(s) 908596-CUL-J ; 801704-MYC-O; 064598-Takerlzxwmduz; 049995-Mhzcwsegtrv, Total; 221627-OLE-Q (Total); 867483-Cvxuu LDL-P; 055088-HXB Size; 695437-CN-HK Scorewas developed and its performance characteristics determinedby FlightStats. It has not been cleared or approved by the Foodand Drug Administration.PATIENT WAS FASTINGPERFORMED BY: Allmoxy[address] [id number] BY: Catacel6370 [facility] [id number] CO2 [Moles/Vol] 26 mmol/L Normal 20-29 [facility] Internal Medicine; [facility] Work Phone: Comment on above: Test(s) 416806-ZCH-B ; 684857-QVZ-F; 076556-Ssvzrmgxscstn; 444026-Xymchnxqred, Total; 947729-YBY-M (Total); 715598-Ffssl LDL-P; 549433-VJW Size; 973206-GW-VJ Scorewas developed and its performance characteristics determinedby FlightStats. It has not been cleared or approved by the Foodand Drug Administration.PATIENT WAS FASTINGPERFORMED BY: [employer] [address] [id number] BY: WhatsNew [employer] [facility] [id number] Creatinine [Mass/Vol] 0.76 mg/dL Normal 0.57-1.00 Com prehensive [facility] Medicine; [facility] Work Phone: Comment on above: Test(s) 240460-KMC-F ; 465722-ZKG-P; 397275-Sbfqbfsutdexq; 822553-Jurdboutnht, Total; 805592-MRC-J (Total); 396488-Oezgk LDL-P; 234064-FRN Size; 265370-IT-DL Scorewas developed and its performance characteristics determinedby FlightStats. It has not been cleared or approved by the Foodand Drug Administration.PATIENT WAS FASTINGPERFORMED BY: [employer] eG[employer] [address] [id number] BY: Catacel[address] [facility] [id number] GFR/1.73 sq M predicted among blacks CKD-EPI (S/P/Bld) [Vol rate/Area] 93 mL/min/1.73 Normal [facility]; [facility] Work Phone: Comment on above: Test(s) 014640-SGW-U ; 609948-LCY-U; 481641-Slgtvcdkdgzau; 856008-Qgpxqqyceav, Total; 716105-DON-N (Total); 162650-Vbysu LDL-P; 078286-QWC Size; 911862-HJ-EL Scorewas developed and its performance characteristics determinedby FlightStats. It has not been cleared or approved by the Foodand Drug Administration.PATIENT WAS FASTINGPERFORMED BY: [employer] D[employer] eGifter [address] [id number] BY: Dheere Bolo Whgnkv35[address] [facility] [id number] GFR/1.73 sq M predicted among non-blacks CKD-EPI (S/P/Bld) [Vol rate/Area] 81 mL/min/1.73 Normal [facility]; [facility] Work Phone: Comment on above: Test(s) 097247-BMO-X ; 131318-YUE-G; 349708-Vwilmeiqxkajx; 356336-Rxxmvmbqyjb, Total; 013242-JIN-L (Total); 096955-Xnopv LDL-P; 351181-WHX Size; 263847-PA-UQ Scorewas developed and its performance characteristics determinedby FlightStats. It has not been cleared or approved by the Foodand Drug Administration.PATIENT WAS FASTINGPERFORMED BY: Allmoxy[address] [id number] BY: Owlient[address] [facility] [id number] Globulin (S) [Mass/Vol] 2.9 g/dL Normal 1.5-4.5 [facility] Internal Medicine; [facility] Work Phone: Comment on above: Test(s) 224417-FHO-B ; 625322-AZQ-F; 120264-Fzfdjwolttnre; 887312-Ghkjfcfqxns, Total; 701682-QYN-K (Total); 766631-Fkmjw LDL-P; 784129-VGI Size; 827581-GL-TX Scorewas developed and its performance characteristics determinedby FlightStats. It has not been cleared or approved by the Foodand Drug Administration.PATIENT WAS FASTINGPERFORMED BY: Allmoxy[address] [id number] BY: Personal Estate Managerlin6[address] [facility] [id number] Glucose [Mass/Vol] 115 mg/dL Abnormal 65-99 [facility] Internal Medicine; [facility] Work Phone: Comment on above: Test(s) 001477-XMS-A ; 441720-OLJ-W; 784510-Ginlwqhmyijvc; 183592-Fkyrvablmnt, Total; 777357-QKY-T (Total); 690466-Jbdmk LDL-P; 963654-KFT Size; 299113-PR-OU Scorewas developed and its performance characteristics determinedby FlightStats. It has not been cleared or approved by the Foodand Drug Administration.PATIENT WAS FASTINGPERFORMED BY: Tiny Pictures[address] [id number] BY: Tiny PicturesNorthern Navajo Medical CenterKfeicq4[address] [facility] [id number] Potassium [Moles/Vol] 4.5 mmol/L Normal 3.5-5.2 [facility] Internal Medicine; [facility] Work Phone: Comment on above: Test(s) 842328-RDT-S ; 772068-MVK-D; 247750-Nrgtylvprggwq; 004316-Sevjaqvqcsw, Total; 822368-JGX-D (Total); 308477-Wyrqi LDL-P; 612389-GJJ Size; 898322-AU-QR Scorewas developed and its performance characteristics determinedby FlightStats. It has not been cleared or approved by the Foodand Drug Administration.PATIENT WAS FASTINGPERFORMED BY: Dheere Bolo [address] [id number] BY: Tiny Pictures Oadqtm[address] [facility] [id number] Protein [Mass/Vol] 7.1 g/dL Normal 6.0-8.5 [facility] Internal Medicine; [facility] Work Phone: Comment on above: Test(s) 923840-FJX-I ; 265863-YQM-C; 291345-Ukcezoswhynug; 298304-Tekvgzqrwmp, Total; 053459-CWB-E (Total); 342211-Nteuo LDL-P; 586426-EYA Size; 900294-QR-WL Scorewas developed and its performance characteristics determinedby FlightStats. It has not been cleared or approved by the Foodand Drug Administration.PATIENT WAS FASTINGPERFORMED BY: Tiny Pictures[address] [id number] BY: Tiny Pictures Gybdsa[address] [facility] [id number] Sodium [Moles/Vol] 140 mmol/L Normal 134-144 [facility] Internal Medicine; [facility] Work Phone: Comment on above: Test(s) 668004-BTP-T ; 626814-WZM-S; 569986-Hvnubbhyyqmxg; 976697-Cezuntynhqq, Total; 650122-RLZ-Y (Total); 102327-Kkljz LDL-P; 439631-QOQ Size; 127147-TE-DB Scorewas developed and its performance characteristics determinedby FlightStats. It has not been cleared or approved by the Foodand Drug Administration.PATIENT WAS FASTINGPERFORMED BY: [employer] eG[employer] [address] [id number] BY: Owlient70 [facility] [id number] Urea nitrogen [Mass/Vol] 14 mg/dL Normal 8-27 [facility]; [facility] Work Phone: Comment on above: Test(s) 416694-XQL-M ; 410700-WVT-H; 985043-Xmprjyybeudfr; 817842-Fxnrjlmeohv, Total; 163274-RVY-J (Total); 133394-Lmqrz LDL-P; 330125-JVS Size; 571151-SQ-MY Scorewas developed and its performance characteristics determinedby FlightStats. It has not been cleared or approved by the Foodand Drug Administration.PATIENT WAS FASTINGPERFORMED BY: [employer] eGifter [address] [id number] BY: Catacel6370 [facility] [id number] Urea nitrogen/Creatinine [Mass ratio] 18 mg/mg Normal 12-28 [facility]; [facility] Work Phone: Comment on above: Test(s) 296902-PTT-T ; 216062-JRC-O; 489019-Dafikiatrtdpq; 431293-Osvlhkimayi, Total; 208749-NYH-M (Total); 817384-Nrrhd LDL-P; 561362-EXR Size; 421019-MM-AF Scorewas developed and its performance characteristics determinedby FlightStats. It has not been cleared or approved by the Foodand Drug Administration.PATIENT WAS FASTINGPERFORMED BY: Allmoxyton1447 [facility] [id number] BY: Owlient70 Tamayo [facility]Nov[facility], [facility] [id number] MICROALBUMINOrdered By: Syst em Cart Attendant on 05-01-2020 Albumin DL <= 20 mg/L (U) [Mass/Vol] 15.9 ug/mL Normal [facility]; [facility] Work Phone: Comment on above: Test(s) 875019-MVF-V ; 461165-JWE-G; 276224-Mcgejymbcbyta; 636918-Hyvtrnaojaw, Total; 103594-XRK-G (Total); 802324-Cpwte LDL-P; 800657-WUX Size; 763452-LL-HX Scorewas developed and its performance characteristics determinedby FlightStats. It has not been cleared or approved by the Foodand Drug Administration.PATIENT WAS FASTINGPERFORMED BY: Allmoxy[address] [id number] BY: Owlient[address] [facility] [id number] Albumin/Creatinine (U) [Mass ratio] 49 {mg/g_creat} Abnormal 0-29 [facility]; [facility] Work Phone: Comment on above: Normal: 0 - 29 Moder ately increased: 30 - 300 Severely increased: >300 Test(s) 859900-IBG-T ; 671996-CWM-Z; 347704-Tccpyehjoffmy; 631414-Sulktodchol, Total; 852496-BIY-U (Total); 282356-Godwc LDL-P; 515900-EQE Size; 622460-GY-GE Scorewas developed and its performance characteristics determinedby FlightStats. It has not been cleared or approved by the Foodand Drug Administration.PATIENT WAS FASTINGPERFORMED BY: [email or web address] D[employer] eGifter [address] [id number] BY: Catacel[address] [facility] [id number] Creatinine (U) [Mass/Vol] 32.3 mg/dL Normal [facility]; [facility] Work Phone: Comment on above: Test(s) 597684-TFH-D ; 371328-EOS-G; 619910-Bgzkfvyfidukl; 282215-Ppmphhdtrlz, Total; 857371-JZB-V (Total); 842558-Fhxul LDL-P; 634976-KJT Size; 261601-WG-XA Scorewas developed and its performance characteristics determinedby FlightStats. It has not been cleared or approved by the Foodand Drug Administration.PATIENT WAS FASTINGPERFORMED BY: [employer] D[employer] eGifter [address] [id number] BY: Owlient70 [facility]ioNovant Health, [facility] [id number] NMR Profile (49889)Ordered B y: Spinning Mule Operator on 05-01-2020 Cholesterol [Mass/Vol] 178 mg/dL Normal 100-199 [facility]; [facility] Work Phone: Comment on above: Test(s) 112033-ROT-W ; 418568-HLI-W; 277533-Oewrgaxdwtkiv; 468974-Uuqvfxixbou, Total; 730628-XWR-Z (Total); 863652-Btvec LDL-P; 063232-NGB Size; 380991-IU-LJ Scorewas developed and its performance characteristics determinedby FlightStats. It has not been cleared or approved by the Foodand Drug Administration.PATIENT WAS FASTINGPERFORMED BY: [employer] D[employer] eGifter [address] [id number] BY: Catacel6370 [employer] [id number] Lipoprotein.alpha [Moles/Vol] 45.9 umol/L Normal [facility]; [facility] Work Phone: Comment on above: Test(s) 141898-VIV-O ; 022750-FDM-S; 740338-Ifqalqftvfbmn; 073582-Jzqiwdgfmmz, Total; 857712-OFO-D (Total); 129640-Qenuj LDL-P; 694801-HYI Size; 837495-RQ-NZ Scorewas developed and its performance characteristics determinedby FlightStats. It has not been cleared or approved by the Foodand Drug Administration.PATIENT WAS FASTINGPERFORMED BY: Tiny Pictures[address] [id number] BY: Tiny PicturesRaritan Bay Medical CenterUjzkii[address] [place] [address] [id number] Lipoprotein.beta.subpa rticle [Entitic length] 21.1 nm Normal [facility]; [facility] Work Phone: Comment on above: INTERPRETATIVE INFORMATION PARTICLE CONCENTRATION AND SIZE <--Lower CVD Risk Higher CVD Risk--> LDL AND HDL PARTICLES Percentile in Reference Population HDL-P (total) High 75th 50th 25th Low >34.9 34.9 30.5 26.7 <26.7 . Small LDL-P Low 25th 50th 75th High <117 117 527 839 >839 . LDL Size <-Large (Pattern A)-> <-Small (Pattern B)-> 23.0 20.6 20.5 19.0 Small LDL-P and LDL Size are associated with CVD risk, but not afterLDL-P is taken into account. Test(s) 851490-NJY-Z ; 189033-SZC-R; 158220-Sqaomovcivpah; 812973-Xjxssxynvuy, Total; 811479-YYA-R (Total); 338140-Ivjaw LDL-P; 877807-NJM Size; 006351-BH-DG Scorewas developed and its performance characteristics determinedby FlightStats. It has not been cleared or approved by the Foodand Drug Administration.PATIENT WAS FASTINGPERFORMED BY: Tiny Pictures[address] [id number] BY: Tiny PicturesCynthia Ville 19158[address] [facility] [id number] Lipoprotein.beta.subpa rticle [Moles/Vol] 1015 nmol/L Abnormal [facility]; [facility] Work Phone: Comment on above: Low < 1000 Moderate 1000 - 1299 Borderline-High 1300 - 1599 High 1600 - 2000 Very High > 2000 Test(s) 236609-JFW-Y ; 097348-ZFD-M; 861491-Vgzvkisqyagks; 392054-Qrsfqnwznky, Total; 684719-ZCR-A (Total); 982492-Wwvry LDL-P; 602617-UYB Size; 677797-MQ-VI Scorewas developed and its performance characteristics determinedby FlightStats. It has not been cleared or approved by the Foodand Drug Administration.PATIENT WAS FASTINGPERFORMED BY: Allmoxy[address] [id number] BY: Catacel6370 [employer] [facility] [id number] Lipoprotein.beta.subpa rticle.small [Moles/Vol] 405 nmol/L Normal [facility]; [facility] Work Phone: Comment on above: Test(s) 262131-SMX-D ; 941683-IWY-R; 143946-Lixxesgmluhjd; 168469-Qgweqouxeib, Total; 793478-PCP-K (Total); 012023-Hjidk LDL-P; 678595-DWA Size; 206566-AO-XB Scorewas developed and its performance characteristics determinedby FlightStats. It has not been cleared or approved by the Foodand Drug Administration.PATIENT WAS FASTINGPERFORMED BY: [employer] D[employer] eGifter [address] [id number] BY: Catacel[address] [facility] [id number] Triglyceride [Mass/Vol] 116 mg/dL Normal 0-149 [facility]; [facility] Work Phone: Comment on above: Test(s) 904847-INY-H ; 991436-ADG-F; 883143-Sugbdtsdmyujs; 051625-Qzngceblyrj, Total; 002911-BDA-D (Total); 312187-Khdvh LDL-P; 314182-DJC Size; 483314-RR-VM Scorewas developed and its performance characteristics determinedby FlightStats. It has not been cleared or approved by the Foodand Drug Administration.PATIENT WAS FASTINGPERFORMED BY: [employer] D[employer] eGifter [address] [id number] BY: Tiny Pictures Wcjjeq26[address] [facility] [id number] NMR Profile (00583) 73 mg/dL Normal Compr ensive Internal Medicine; [facility] Work Phone: Comment on above: Test(s) 685959-EBZ-N ; 448173-IQN-X; 450365-Ayszoczbjckfy; 163438-Jfoaoagenwa, Total; 579124-VOD-D (Total); 471730-Nidbf LDL-P; 498482-VED Size; 034722-HL-ZX Scorewas developed and its performance characteristics determinedby FlightStats. It has not been cleared or approved by the Foodand Drug Administration.PATIENT WAS FASTINGPERFORMED BY: [employer] D[employer] eGifter [address] [id number] BY: Health[employer] Jfwfgp0[address] [facility] [id number] NMR Profile (03521) 85 mg/dL Normal 0-99 [facility]; [facility] Work Phone: Comment on above: . Optimal < 100 Abov e optimal 100 - 129 Borderline 130 - 159 High 160 - 189 Very high > 189 . Test(s) 776504-RYE-Z ; 613151-AWN-K; 256263-Nfxytssrvyfup; 369635-Ldiqhdyqwkl, Total; 800304-ZXM-T (Total); 357746-Otahp LDL-P; 534106-OZS Size; 322266-LE-GC Scorewas developed and its performance characteristics determinedby FlightStats. It has not been cleared or approved by the Foodand Drug Administration.PATIENT WAS FASTINGPERFORMED BY: [employer] D[employer] eGifter [address] [id number] BY: CB LabAlchemia Oncology[address] [place], [place] [address]blin [place] [id number] TSH (THYROID STIMULATING HOR JOHN) (72984)Ordered By: Spinning Mule Operator on 05-01-2020 TSH Qn 0.514 {uIU/mL} Normal 0.450-4.500 Meli vasquez Internal Medicine; [facility] Work Phone: Comment on above: Test(s) 379837-CGY-C ; 506893-SBV-U; 113811-Khqncfmvmofgw; 937155-Tstkhujwfsz, Total; 342376-VCG-K (Total); 234238-Sfbvf LDL-P; 061832-BDZ Size; 288767-PC-XM Scorewas developed and its performance characteristics determinedby FlightStats. It has not been cleared or approved by the Foodand Drug Administration.PATIENT WAS FASTINGPERFORMED BY: Allmoxy[address] [id number] BY: Owlient70 [employer] [id number] EVELINE (ANTINUCLEAR ANTIBODY) ( 77134)Ordered By: Spinning Mule Operator on 02-08-2020 Nuclear Ab Ql (S) Negative Normal Compreh ensive Internal Medicine; [facility] Work Phone: Comment on above: Test(s) 980748-Xsxpq ic, Blood; 653666-Rldojlh, Blood; 847477-Wkiqlyc, Bloodwas developed and its performance characteristics determinedby Dheere Bolo. It has not been cleared or approved by the Foodand Drug Administration.PATIENT NOT FASTINGPERFORMED BY: [employer] D[employer] eGifter [address] [id number] BY: [employer] Algukw6020 [facility] [id number] Nuclear Ab Ql (S) Negative Normal Compreh ensive Internal Medicine; [facility] Work Phone: Comment on above: Test(s) 113580-Ilqrj ic, Blood; 742578-Wuhkefd, Blood; 649528-Svdmpje, Bloodwas developed and its performance characteristics determinedby Dheere Bolo. It has not been cleared or approved by the Foodand Drug Administration.PATIENT NOT FASTINGPERFORMED BY: BN [facility] [id number] BY: Tiny PicturesRaritan Bay Medical CenterDmycvi69[address] [facility] [id number] CBC & PLATELETS (AUTO) (8502 7)Ordered By: Spinning Mule Operator on 02-08-2020 Erythrocyte distribution width (RBC) [Ratio] 12.5 % Normal 11.7-15.4 [facility]; [facility] Work Phone: Comment on above: Test(s) 354515-Vxqyv ic, Blood; 751193-Giqudgy, Blood; 770955-Aqbiqnz, Bloodwas developed and its performance characteristics determinedby Dheere Bolo. It has not been cleared or approved by the Foodand Drug Administration.PATIENT NOT FASTINGPERFORMED BY: [employer] D[employer] eGifter [address] [id number] BY: Tiny PicturesRaritan Bay Medical CenterFklmpp8[address] [facility] [id number] Hematocrit (Bld) [Volume fraction] 39.1 % Normal 34.0-46.6 [facility]; [facility] Work Phone: Comment on above: Test(s) 316415-Pfslm ic, Blood; 706458-Dmwozoi, Blood; 771481-Jfpgsnm, Bloodwas developed and its performance characteristics determinedby Dheere Bolo. It has not been cleared or approved by the Foodand Drug Administration.PATIENT NOT FASTINGPERFORMED BY: OpenTable[address] [id number] BY: Tiny PicturesRaritan Bay Medical CenterCxciyn6[address] [facility] [id number] Hemoglobin (Bld) [Mass/Vol] 12.8 g/dL Normal 11.1-15.9 [facility]; [facility] Work Phone: Comment on above: Test(s) 226947-Qksej ic, Blood; 704025-Ovwrqsk, Blood; 082262-Fiahrwo, Bloodwas developed and its performance characteristics determinedby Dheere Bolo. It has not been cleared or approved by the Foodand Drug Administration.PATIENT NOT FASTINGPERFORMED BY: OpenTable[address] [id number] BY: Tiny Pictures Qslpkl9629 [employer] [id number] MCH (RBC) [Entitic mass] 29.2 pg Normal 26.6-33.0 [facility] Internal Medicine; [facility] Work Phone: Comment on above: Test(s) 039568-Kopcf ic, Blood; 233103-Axaencr, Blood; 553962-Sptwtbd, Bloodwas developed and its performance characteristics determinedby Dheere Bolo. It has not been cleared or approved by the Foodand Drug Administration.PATIENT NOT FASTINGPERFORMED BY: Tiny Pictures[address] [id number] BY: [facility]MineCentral [facility] Hospital [id number] MCHC (RBC) [Mass/Vol] 32.7 g/dL Normal 31.5-35.7 [facility] Internal Medicine; [facility] Work Phone: Comment on above: Test(s) 036987-Pmdoc ic, Blood; 389878-Vkbumov, Blood; 650047-Ghhsioa, Bloodwas developed and its performance characteristics determinedby Dheere Bolo. It has not been cleared or approved by the Foodand Drug Administration.PATIENT NOT FASTINGPERFORMED BY: Tiny Pictures[address] [id number] BY: Tiny Pictures Luyqly2571 [employer] [id number] MCV (RBC) [Entitic vol] 89 fL Normal 79-97 [facility] Internal Medicine; [facility] Work Phone: Comment on above: Test(s) 931709-Dfqqh ic, Blood; 712760-Lzwpuhh, Blood; 973374-Icwosuj, Bloodwas developed and its performance characteristics determinedby Dheere Bolo. It has not been cleared or approved by the Foodand Drug Administration.PATIENT NOT FASTINGPERFORMED BY: Tiny Pictures[address] [id number] BY: Tiny Pictures Mevilg9729 [employer] [id number] Platelets (Bld) [#/Vol] 359 {x10E3/uL} Normal 150-450 [facility]; [facility] Work Phone: Comment on above: Test(s) 202999-Awytl ic, Blood; 582657-Ltaxvid, Blood; 737834-Khlgwhd, Bloodwas developed and its performance characteristics determinedby [employer]. It has not been cleared or approved by the Foodand Drug Administration.PATIENT NOT FASTINGPERFORMED BY: Tiny Pictures[address] [id number] BY: Tiny PicturesNorthern Navajo Medical CenterZkcgpu57[address] [facility] [id number] Platelets (Bld) [#/Vol] 359 10*3/uL Normal 150-450 [facility]; [facility] Work Phone: Comment on above: Test(s) 394731-Gaszy ic, Blood; 510404-Mubgjma, Blood; 813205-Ndnijth, Bloodwas developed and its performance characteristics determinedby [employer]. It has not been cleared or approved by the Foodand Drug Administration.PATIENT NOT FASTINGPERFORMED BY: [employer] D[employer] eGifter [address] [id number] BY: Owlient70 Tamayo [facility]ityNov[facility], [facility] [id number] RBC (Bld) [#/Vol] 4.39 {x10E6/uL} Normal 3.77-5.28 [facility] Internal Medicine; [facility] Work Phone: Comment on above: Test(s) 499115-Dmpdc ic, Blood; 561102-Tvgonje, Blood; 890484-Mgmrghf, Bloodwas developed and its performance characteristics determinedby [employer]. It has not been cleared or approved by the Foodand Drug Administration.PATIENT NOT FASTINGPERFORMED BY: Tiny Pictures[address] [id number] BY: Tiny PicturesRaritan Bay Medical CenterMtldkx6040 [facility] [id number] RBC (Bld) [#/Vol] 4.39 10*6/uL Normal 3.77-5.28 [facility] Internal Medicine; [facility] Work Phone: Comment on above: Test(s) 920999-Zidpm ic, Blood; 136632-Gvbqsiy, Blood; 575293-Nbhtakz, Bloodwas developed and its performance characteristics determinedby Dheere Bolo. It has not been cleared or approved by the Foodand Drug Administration.PATIENT NOT FASTINGPERFORMED BY: [employer]ifter [address] [id number] BY: Owlient70 [employer] [id number] WBC (Bld) [#/Vol] 6.3 {x10E3/uL} Normal 3.4-10.8 [facility] Internal Medicine; [facility] Work Phone: Comment on above: Test(s) 470051-Fcqhe ic, Blood; 241958-Vbiwpml, Blood; 668571-Zwhjhte, Bloodwas developed and its performance characteristics determinedby Dheere Bolo. It has not been cleared or approved by the Foodand Drug Administration.PATIENT NOT FASTINGPERFORMED BY: [employer] [address] [id number] BY: Owlient70 [employer] [id number] WBC (Bld) [#/Vol] 6.3 10*3/uL Normal 3.4-10.8 [facility] Internal Medicine; [facility] Work Phone: Comment on above: Test(s) 157458-Otwmh ic, Blood; 367885-Cxwioul, Blood; 756322-Kisotum, Bloodwas developed and its performance characteristics determinedby Dheere Bolo. It has not been cleared or approved by the Foodand Drug Administration.PATIENT NOT FASTINGPERFORMED BY: Dheere Bolo [address] [id number] BY: Owlient70 Tam[place]o PaylocityNov[facility], [facility] [id number] HEAVY METAL SCREEN (08295)Or dered By: Spinning Mule Operator on 02-08-2020 Arsenic (Bld) [Mass/Vol] 6 ug/L Normal 2-23 [facility]; [facility] Work Phone: Comment on above: Detection Limit = 1 Test(s) 363741-Holrq ic, Blood; 383937-Hrdcwie, Blood; 931785-Zrwrfgp, Bloodwas developed and its performance characteristics determinedby Dheere Bolo. It has not been cleared or approved by the Foodand Drug Administration.PATIENT NOT FASTINGPERFORMED BY: [address] [id number] BY: [address] [id number] Cadmium (Bld) [Mass/Vol] <0.5 Normal 0.0-1.2 [facility]; [facility] Work Phone: Comment on above: Environmental Exposu re: Nonsmokers 0.3 - 1.2 Smokers 0.6 - 3.9 Occupational Exposure: OSHA Cadmium Std 5.0 RAJANI 5.0 . Detection Limit = 0.5 Test(s) 294233-Yjwmk ic, Blood; 338122-Hildayx, Blood; 241183-Njckjnv, Bloodwas developed and its performance characteristics determinedby Dheere Bolo. It has not been cleared or approved by the Foodand Drug Administration.PATIENT NOT FASTINGPERFORMED BY: meebee[address] [id number] BY: [facility]itt[facility] Medical CenterDigital Global SystemsRaritan Bay Medical CenterCrbzyy12[address] [facility] [id number] Lead (Bld) [Mass/Vol] ug/dL Normal 0-4 [facility] prehensive Internal Medicine; [facility] Work Phone: Comment on above: Testing performed by Inductively coupled plasma/Mass Spectrometry. Environmental Exposure: WHO Recommendation <20 Occupational Exposure: OSHA Lead Std 40 RAJANI 30 . Detection Limit = 1 . This test was developed and its performance characteristics determined by Dheere Bolo. It has not been cleared or approved by the Food and Drug Administration. Test(s) 074497-Rwpoy ic, Blood; 614693-Sefrwrq, Blood; 406031-Tgebxqs, Bloodwas developed and its performance characteristics determinedby Dheere Bolo. It has not been cleared or approved by the Foodand Drug Administration.PATIENT NOT FASTINGPERFORMED BY: Lab[address] [id number] BY: [facility] Medical CenterDigital Global SystemsRaritan Bay Medical CenterLfhbdp77[address] [facility] [id number] Lead (Bld) [Mass/Vol] ug/dL Normal 0-4 Com prehensive Internal Medicine; [facility] Work Phone: Comment on above: Testing performed by Inductively coupled plasma/Mass Spectrometry. Environmental Exposure: WHO Recommendation <20 Occupational Exposure: OSHA Lead Std 40 RAJANI 30 . Detection Limit = 1 . This test was developed and its performance characteristics determined by Dheere Bolo. It has not been cleared or approved by the Food and Drug Administration. Test(s) 117838-Omaes ic, Blood; 304302-Vjypiha, Blood; 112034-Iatcmud, Bloodwas developed and its performance characteristics determinedby Dheere Bolo. It has not been cleared or approved by the Foodand Drug Administration.PATIENT NOT FASTINGPERFORMED BY: Dheere Bolo [address] [id number] BY: Tiny PicturesRaritan Bay Medical CenterPvwnfs4[address] [facility] [id number] Mercury (Bld) [Mass/Vol] <1.0 Normal 0.0-14.9 [facility]; [facility] Work Phone: Comment on above: Environmental Exposu re: <15.0 Occupational Exposure: RAJANI - Inorganic Mercury: 15.0 . Detection Limit = 1.0 Test(s) 039133-Nmgjr ic, Blood; 357643-Fzawdwr, Blood; 755068-Hgngyrs, Bloodwas developed and its performance characteristics determinedby Dheere Bolo. It has not been cleared or approved by the Foodand Drug Administration.PATIENT NOT FASTINGPERFORMED BY: Tiny Pictures[address] [id number] BY: Tiny PicturesRaritan Bay Medical CenterSjaeme66[address] [facility] [id number] HEPATITIS C ANTIBODY (12340) Ordered By: Spinning Mule Operator on 02-08-2020 HCV Ab Signal/Cutoff IA [Rel units/Vol] {ratio} Normal 0.0-0.9 [facility]; [facility] Work Phone: Comment on above: Negative: < 0.8 Inde terminate: 0.8 - 0.9 Positive: > 0.9 . The CDC recommends that a positive HCV antibody result be followed up with a HCV Nucleic Acid Amplification test (771562). Test(s) 718263-Kpegf ic, Blood; 493365-Jafpvkt, Blood; 122061-Eohfmbr, Bloodwas developed and its performance characteristics determinedby Dheere Bolo. It has not been cleared or approved by the Foodand Drug Administration.PATIENT NOT FASTINGPERFORMED BY: [employer] [address] [id number] BY: MUJIN MD [id number] HCV Ab Signal/Cutoff IA [Rel units/Vol] {ratio} Normal 0.0-0.9 [facility]; [facility] Work Phone: Comment on above: Negative: < 0.8 Inde terminate: 0.8 - 0.9 Positive: > 0.9 . The CDC recommends that a positive HCV antibody result be followed up with a HCV Nucleic Acid Amplification test (959275). Test(s) 919652-Qukox ic, Blood; 999422-Dqicrgw, Blood; 465935-Otceydq, Bloodwas developed and its performance characteristics determinedby Dheere Bolo. It has not been cleared or approved by the Foodand Drug Administration.PATIENT NOT FASTINGPERFORMED BY: [employer] [address] [id number] BY: Owlient70 [employer] [id number] HGB A1C (57025)Ordered By: Matt Bernard on 02-08-2020 HbA1c (Bld) [Mass fraction] 5.7 % Normal 4.6 - 7.1 [facility]; [facility] Work Phone: Comment on above: do now METABOLIC PANEL, COMPREHENSI VE (39878)Ordered By: Spinning Mule Operator on 02-08-2020 Albumin [Mass/Vol] 4.3 g/dL Normal 3.8-4.8 [facility] Internal Medicine; [facility] Work Phone: Comment on above: Test(s) 693900-Bxvea ic, Blood; 462220-Ekgutap, Blood; 786170-Ixfamwk, Bloodwas developed and its performance characteristics determinedby Dheere Bolo. It has not been cleared or approved by the Foodand Drug Administration.PATIENT NOT FASTINGPERFORMED BY: Tiny Pictures[address] [id number] BY: Tiny Pictures Fflppx5101 Tamayo PaylocityNovant Health, [facility] [id number] Albumin/Globulin [Mass ratio] 1.6 {ratio} Normal 1.2-2.2 [facility]; [facility] Work Phone: Comment on above: Test(s) 704344-Fsjfd ic, Blood; 294237-Gnlrdfy, Blood; 110210-Dpzaeqv, Bloodwas developed and its performance characteristics determinedby Dheere Bolo. It has not been cleared or approved by the Foodand Drug Administration.PATIENT NOT FASTINGPERFORMED BY: Tiny Pictures[address] [id number] BY: Tiny PicturesNorthern Navajo Medical CenterLcecqn3189 Tamayo PaylocityNovant Health, [facility] [id number] ALP [Catalytic activity/Vol] 88 [iU]/L Normal 39-117 [facility]; [facility] Work Phone: Comment on above: Test(s) 867539-Niwsu ic, Blood; 649780-Rkdwibr, Blood; 045528-Ktbciqz, Bloodwas developed and its performance characteristics determinedby Dheere Bolo. It has not been cleared or approved by the Foodand Drug Administration.PATIENT NOT FASTINGPERFORMED BY: Tiny Pictures[address] [id number] BY: Tiny PicturesCynthia Ville 1915870 Tamayo PaylocityNov[facility] Health, [facility] [id number] ALP [Catalytic activity/Vol] 88 U/L Normal 39-117 [facility]; [facility] Work Phone: Comment on above: Test(s) 318541-Amdsp ic, Blood; 431612-Imtdrah, Blood; 321627-Andtptt, Bloodwas developed and its performance characteristics determinedby Dheere Bolo. It has not been cleared or approved by the Foodand Drug Administration.PATIENT NOT FASTINGPERFORMED BY: Lab[address] [id number] BY: LabCoNorthern Navajo Medical CenterMsvsmc5391 Tamayo PaylocityNovant Health, [facility] [id number] ALT [Catalytic activity/Vol] 17 [iU]/L Normal 0-32 [facility]; [facility] Work Phone: Comment on above: Test(s) 727687-Evybm ic, Blood; 461008-Lkyohxp, Blood; 603423-Wcnxrui, Bloodwas developed and its performance characteristics determinedby Dheere Bolo. It has not been cleared or approved by the Foodand Drug Administration.PATIENT NOT FASTINGPERFORMED BY: Lab[address] [id number] BY: LabHarper [facility] Hospital6[address] [facility] [id number] ALT [Catalytic activity/Vol] 17 U/L Normal 0-32 [facility]; [facility] Work Phone: Comment on above: Test(s) 840026-Lrsul ic, Blood; 395399-Ndfunya, Blood; 569133-Hlicbjb, Bloodwas developed and its performance characteristics determinedby Dheere Bolo. It has not been cleared or approved by the Foodand Drug Administration.PATIENT NOT FASTINGPERFORMED BY: Tiny Pictures[address] [id number] BY: LabCoNorthern Navajo Medical CenterLqvfqu5013 [facility] [id number] AST [Catalytic activity/Vol] 18 [iU]/L Normal 0-40 [facility]; [facility] Work Phone: Comment on above: Test(s) 391302-Qxodw ic, Blood; 194792-Fdnovxq, Blood; 971630-Xglbrdy, Bloodwas developed and its performance characteristics determinedby Dheere Bolo. It has not been cleared or approved by the Foodand Drug Administration.PATIENT NOT FASTINGPERFORMED BY: Lab[address] [id number] BY: [place] 1795670 [facility] [id number] AST [Catalytic activity/Vol] 18 U/L Normal 0-40 [facility]; [facility] Work Phone: Comment on above: Test(s) 703377-Qvfba ic, Blood; 468097-Pwkglgr, Blood; 006417-Evzslgo, Bloodwas developed and its performance characteristics determinedby Dheere Bolo. It has not been cleared or approved by the Foodand Drug Administration.PATIENT NOT FASTINGPERFORMED BY: Tiny Pictures[address] [id number] BY: Tiny PicturesRaritan Bay Medical CenterRuvhaf44[address] [facility] [id number] Bilirubin [Mass/Vol] 0.3 mg/dL Normal 0.0-1.2 [facility]; [facility] Work Phone: Comment on above: Test(s) 994627-Ungzx ic, Blood; 923871-Wdbgrdy, Blood; 681278-Drcfxuy, Bloodwas developed and its performance characteristics determinedby Dheere Bolo. It has not been cleared or approved by the Foodand Drug Administration.PATIENT NOT FASTINGPERFORMED BY: Tiny Pictures[address] [id number] BY: Tiny PicturesNorthern Navajo Medical CenterLuqily48[address] [facility] [id number] Calcium [Mass/Vol] 9.6 mg/dL Normal 8.7-10.3 [facility] Internal Medicine; [facility] Work Phone: Comment on above: Test(s) 908006-Vitak ic, Blood; 926026-Qzvgdcz, Blood; 225915-Dhdzpuf, Bloodwas developed and its performance characteristics determinedby Dheere Bolo. It has not been cleared or approved by the Foodand Drug Administration.PATIENT NOT FASTINGPERFORMED BY: Tiny Pictures[address] [id number] BY: Tiny PicturesRaritan Bay Medical CenterFdskep4377 [facility] [id number] Chloride [Moles/Vol] 101 mmol/L Normal 96-106 [facility]; [facility] Work Phone: Comment on above: Test(s) 671859-Hewlg ic, Blood; 767694-Zufhuvy, Blood; 851142-Yxafpgi, Bloodwas developed and its performance characteristics determinedby Dheere Bolo. It has not been cleared or approved by the Foodand Drug Administration.PATIENT NOT FASTINGPERFORMED BY: [employer] [address] [id number] BY: InnolumeMur[facility] [id number] CO2 [Moles/Vol] 26 mmol/L Normal 20-29 [facility] Internal Medicine; [facility] Work Phone: Comment on above: Test(s) 464926-Pkqjd ic, Blood; 932058-Jiyrmzx, Blood; 150053-Gxgzgeg, Bloodwas developed and its performance characteristics determinedby Dheere Bolo. It has not been cleared or approved by the Foodand Drug Administration.PATIENT NOT FASTINGPERFORMED BY: [employer] [address] [id number] BY: Owlient70 [employer] [id number] Creatinine [Mass/Vol] 0.77 mg/dL Normal 0.57-1.00 [facility] prehensive Internal Medicine; [facility] Work Phone: Comment on above: Test(s) 895282-Susrt ic, Blood; 005721-Qsjzvvc, Blood; 314093-Higbsiy, Bloodwas developed and its performance characteristics determinedby Dheere Bolo. It has not been cleared or approved by the Foodand Drug Administration.PATIENT NOT FASTINGPERFORMED BY: [employer] [address] [id number] BY: Owlient70 [employer] [id number] GFR/1.73 sq M predicted among blacks CKD-EPI (S/P/Bld) [Vol rate/Area] 92 mL/min/1.73 Normal [facility]; [facility] Work Phone: Comment on above: Test(s) 672079-Juzcw ic, Blood; 224279-Ddjqzvh, Blood; 819776-Ihduzoy, Bloodwas developed and its performance characteristics determinedby Dheere Bolo. It has not been cleared or approved by the Foodand Drug Administration.PATIENT NOT FASTINGPERFORMED BY: Tiny Pictures[address] [id number] BY: Tiny PicturesNorthern Navajo Medical CenterNvdzfh9234 Tamayo PaylocityNovant Health, [facility] [id number] GFR/1.73 sq M predicted among non-blacks CKD-EPI (S/P/Bld) [Vol rate/Area] 80 mL/min/1.73 Normal [facility]; [facility] Work Phone: Comment on above: Test(s) 844496-Ixkpx ic, Blood; 601362-Nmqdbbo, Blood; 310539-Xvidvsu, Bloodwas developed and its performance characteristics determinedby Dheere Bolo. It has not been cleared or approved by the Foodand Drug Administration.PATIENT NOT FASTINGPERFORMED BY: Tiny Pictures[address] [id number] BY: Tiny PicturesNorthern Navajo Medical CenterSwfkhu8803 [place] PaylocityNovant Health, [facility] [id number] Globulin (S) [Mass/Vol] 2.7 g/dL Normal 1.5-4.5 [facility]; [facility] Work Phone: Comment on above: Test(s) 456611-Nmhbq ic, Blood; 878900-Ingzhxs, Blood; 755205-Gnqrsmm, Bloodwas developed and its performance characteristics determinedby Dheere Bolo. It has not been cleared or approved by the Foodand Drug Administration.PATIENT NOT FASTINGPERFORMED BY: Tiny Pictures[address] [id number] BY: Tiny PicturesRaritan Bay Medical CenterQtckhp6628 Tamayo PaylocityNovant Health, [facility] [id number] Glucose [Mass/Vol] 105 mg/dL Abnormal 65-99 [facility] Internal Medicine; [facility] Work Phone: Comment on above: Test(s) 096546-Ovgsq ic, Blood; 582069-Eeumklr, Blood; 431760-Iwvxcqo, Bloodwas developed and its performance characteristics determinedby Dheere Bolo. It has not been cleared or approved by the Foodand Drug Administration.PATIENT NOT FASTINGPERFORMED BY: meebee[address] [id number] BY: meebeeHarper University Hospital6[address] [facility] [id number] Potassium [Moles/Vol] 4.4 mmol/L Normal 3.5-5.2 [facility] Internal Medicine; [facility] Work Phone: Comment on above: Test(s) 101707-Kuniu ic, Blood; 947768-Ivyctpm, Blood; 013934-Xaiyrqe, Bloodwas developed and its performance characteristics determinedby [employer]. It has not been cleared or approved by the Foodand Drug Administration.PATIENT NOT FASTINGPERFORMED BY: Tiny Pictures[address] [id number] BY: Tiny PicturesCynthia Ville 1915870 [facility] [id number] Protein [Mass/Vol] 7.0 g/dL Normal 6.0-8.5 [facility] Internal Medicine; [facility] Work Phone: Comment on above: Test(s) 348807-Zxxkx ic, Blood; 616451-Ptbkphv, Blood; 428122-Pqcntgq, Bloodwas developed and its performance characteristics determinedby [employer]. It has not been cleared or approved by the Foodand Drug Administration.PATIENT NOT FASTINGPERFORMED BY: Tiny Pictures[address] [id number] BY: meebeeHarper University Hospital6[address] [facility] [id number] Sodium [Moles/Vol] 140 mmol/L Normal 134-144 [facility] Internal Medicine; [facility] Work Phone: Comment on above: Test(s) 278082-Rzcml ic, Blood; 263116-Thcurfq, Blood; 508866-Juwdpcb, Bloodwas developed and its performance characteristics determinedby [employer]. It has not been cleared or approved by the Foodand Drug Administration.PATIENT NOT FASTINGPERFORMED BY: Tiny Pictures[address] [id number] BY: Tiny Pictures Gpsmyl9638 Tamayo ShopItblin MD [id number] Urea nitrogen [Mass/Vol] 11 mg/dL Normal 8-27 [facility]; [facility] Work Phone: Comment on above: Test(s) 297274-Mdmyf ic, Blood; 300673-Vrhxkvg, Blood; 201420-Ikirliz, Bloodwas developed and its performance characteristics determinedby Dheere Bolo. It has not been cleared or approved by the Foodand Drug Administration.PATIENT NOT FASTINGPERFORMED BY: Tiny Pictures[address] [id number] BY: Tiny Pictures Hhvuqo4496 Tamayo ShopItCentral [facility] Hospital [id number] Urea nitrogen/Creatinine [Mass ratio] 14 mg/mg Normal 12-28 [facility]; [facility] Work Phone: Comment on above: Test(s) 363685-Rwbho ic, Blood; 689513-Xjagpoq, Blood; 826445-Uexyamr, Bloodwas developed and its performance characteristics determinedby Dheere Bolo. It has not been cleared or approved by the Foodand Drug Administration.PATIENT NOT FASTINGPERFORMED BY: Tiny Pictures[address] [id number] BY: Tiny Pictures Gsmrgn6145 Tamayo ShopItCentral [facility] Hospital [id number] SED RATE ERYTHROCYTE (87565) Ordered By: Spinning Mule Operator on 02-08-2020 ESR (Bld) [Velocity] 9 mm/h Normal 0-40 Comp rehensive Internal Medicine; [facility] Work Phone: Comment on above: Test(s) 408265-Lzgdc ic, Blood; 874053-Lahusmf, Blood; 539962-Szllkte, Bloodwas developed and its performance characteristics determinedby Dheere Bolo. It has not been cleared or approved by the Foodand Drug Administration.PATIENT NOT FASTINGPERFORMED BY: Tiny Pictures[address] [id number] BY: Tiny Pictures Nzsxvj2383 Tamayo ShopItCentral [facility] Hospital [id number] Serum Protein Electrophoresi s (SPEP) (33605)Ordered By: Spinning Mule Operator on 02-08-2020 Albumin [Mass/Vol] 3.6 g/dL Normal 2.9-4.4 [facility] Internal Medicine; [facility] Work Phone: Comment on above: Test(s) 079360-Znrev ic, Blood; 343857-Kgfcqvi, Blood; 052378-Jeawrws, Bloodwas developed and its performance characteristics determinedby Dheere Bolo. It has not been cleared or approved by the Foodand Drug Administration.PATIENT NOT FASTINGPERFORMED BY: [employer] [address] [id number] BY: [employer] Tamayo PaylocityNovant Health, [facility] [id number] Albumin/Globulin [Mass ratio] 1.1 {ratio} Normal 0.7-1.7 [facility]; [facility] Work Phone: Comment on above: Test(s) 915883-Zakja ic, Blood; 349498-Lukuxld, Blood; 672120-Kloremi, Bloodwas developed and its performance characteristics determinedby Dheere Bolo. It has not been cleared or approved by the Foodand Drug Administration.PATIENT NOT FASTINGPERFORMED BY: [employer]ifter [address] [id number] BY: HealthQx Bfzqrp7888 Tamayo ShopItCentral [facility] Hospital [id number] Alpha 1 globulin Elph [Mass/Vol] 0.3 g/dL Normal 0.0-0.4 [facility] Internal Medicine; [facility] Work Phone: Comment on above: Test(s) 960295-Cqhgl ic, Blood; 897683-Dkkmmcy, Blood; 252224-Jtwhcwy, Bloodwas developed and its performance characteristics determinedby Dheere Bolo. It has not been cleared or approved by the Foodand Drug Administration.PATIENT NOT FASTINGPERFORMED BY: OpenTable[address] [id number] BY: HealthQx Hmfiyj7140 [facility] [id number] Alpha 2 globulin Elph [Mass/Vol] 0.9 g/dL Normal 0.4-1.0 [facility]; [facility] Work Phone: Comment on above: Test(s) 860383-Gsctj ic, Blood; 969237-Kebiozq, Blood; 282176-Rxxcwiy, Bloodwas developed and its performance characteristics determinedby Dheere Bolo. It has not been cleared or approved by the Foodand Drug Administration.PATIENT NOT FASTINGPERFORMED BY: Dheere Bolo [address] [id number] BY: Owlient70 [place] PaylocityNovant Health, [facility] [id number] Beta globulin Elph [Mass/Vol] 1.2 g/dL Normal 0.7-1.3 [facility]; [facility] Work Phone: Comment on above: Test(s) 141930-Sjkik ic, Blood; 184454-Pftdhll, Blood; 478459-Wbprduh, Bloodwas developed and its performance characteristics determinedby Dheere Bolo. It has not been cleared or approved by the [employer] Drug Administration.PATIENT NOT FASTINGPERFORMED BY: [employer] [address] [id number] BY: Owlient70 [employer] [id number] Gamma globulin Elph [Mass/Vol] 1.1 g/dL Normal 0.4-1.8 [facility]; [facility] Work Phone: Comment on above: Test(s) 113275-Dkzgt ic, Blood; 460744-Ouyflzq, Blood; 801109-Uachqlt, Bloodwas developed and its performance characteristics determinedby Dheere Bolo. It has not been cleared or approved by the [employer] Drug Administration.PATIENT NOT FASTINGPERFORMED BY: [employer] [address] [id number] BY: Health[place]ynthia [place] [id number] Tamayo [facility], [facility] [id number] Globulin (S) [Mass/Vol] 3.4 g/dL Normal 2.2-3.9 [facility]; [facility] Work Phone: Comment on above: Test(s) 550933-Cszxe ic, Blood; 305724-Mfdjhle, Blood; 522530-Zksilwx, Bloodwas developed and its performance characteristics determinedby Dheere Bolo. It has not been cleared or approved by the Foodand Drug Administration.PATIENT NOT FASTINGPERFORMED BY: [employer] [address] [id number] BY: uberVU70 Tamayo [facility] [id number] Laboratory comment Bryan (Report) [facility] Normal [facility]; [facility] Work Phone: Comment on above: Protein electrophore sis scan will follow via computer, mail, orcourier delivery. Test(s) 938718-Jwpev ic, Blood; 734684-Eegzmys, Blood; 594752-Nfnteis, Bloodwas developed and its performance characteristics determinedby Dheere Bolo. It has not been cleared or approved by the Foodand Drug Administration.PATIENT NOT FASTINGPERFORMED BY: [employer] [address] [id number] BY: uberVU70 Tamayo EduquiaMurray-[facility] [id number] Laboratory report . Normal Compreh ensive Internal Medicine; [facility] Work Phone: Comment on above: Test(s) 086027-Rgthq ic, Blood; 846886-Yrhnnpm, Blood; 150698-Ssxksrx, Bloodwas developed and its performance characteristics determinedby Dheere Bolo. It has not been cleared or approved by the Foodand Drug Administration.PATIENT NOT FASTINGPERFORMED BY: [employer] [address] [id number] BY: Tiny Pictures Obxeqg3772 [employer] [id number] Protein.monoclonal Elph [Mass/Vol] Not Observed Normal [facility]; [facility] Work Phone: Comment on above: Test(s) 686475-Fhlcn ic, Blood; 947477-Mkgsxdi, Blood; 908901-Fcpyfmc, Bloodwas developed and its performance characteristics determinedby Dheere Bolo. It has not been cleared or approved by the Foodand Drug Administration.PATIENT NOT FASTINGPERFORMED BY: [employer] [address] [id number] BY: Catacel6370 [employer] [id number] TSH (THYROID STIMULATING HOR JOHN) (77896)Ordered By: Spinning Mule Operator on 02-08-2020 TSH Qn 1.020 {uIU/mL} Normal 0.450-4.500 [facility] Internal Medicine; [facility] Work Phone: Comment on above: Test(s) 417556-Fqgbu ic, Blood; 710525-Emuzcjc, Blood; 594873-Bxpydek, Bloodwas developed and its performance characteristics determinedby Dheere Bolo. It has not been cleared or approved by the Foodand Drug Administration.PATIENT NOT FASTINGPERFORMED BY: Allmoxy[address] [id number] BY: Catacel6370 [employer] [id number] VITAMIN B-12 (CYANOCOBALAMIN ) (46629)Ordered By: Spinning Mule Operator on 02-08-2020 Cobalamin (Vitamin B12) [Mass/Vol] 717 pg/mL Normal 232-1245 [facility]; [facility] Work Phone: Comment on above: Test(s) 310560-Zgxko ic, Blood; 068197-Yoyvnzz, Blood; 064177-Gcszndv, Bloodwas developed and its performance characteristics determinedby Dheere Bolo. It has not been cleared or approved by the Foodand Drug Administration.PATIENT NOT FASTINGPERFORMED BY: [employer] [address] [id number] BY: Catacel6370 [employer] [id number] HgA1C , Office (12082)Ordere d By: Jannie Saenz on 11-04-2019 HbA1c (Bld) [Mass fraction] 6.0 % Normal 4.6 - 7.1 [facility] Work Phone: CBC W/AUTO DIFF WBC (29998)O rdered By: Spinning Mule Operator on 10-26-2019 Basophils (Bld) [#/Vol] 0.0 {x10E3/uL} Normal 0.0-0.2 [facility] Work Phone: Comment on above: Test(s) 727577-OBS-C ; 563856-OJR-E; 907668-XIT-X; 314802-Rsnwahxtyijnj; 835436-Sntccjhctwj, Total; 481849-ECY-W (Total);807304-Qglus LDL-P; 128385-LXX Size; 507901-WE-SS Scorewas developed and its performance characteristics determinedby Dheere Bolo. It has not been cleared or approved by the Foodand Drug Administration.PATIENT WAS FASTINGPERFORMED BY: Allmoxy[address] [id number] BY: Owlient70 [facility] [id number] Basophils (Bld) [#/Vol] 0.0 10*3/uL Normal 0.0-0.2 [facility]; [facility] Work Phone: Comment on above: Test(s) 515790-DYQ-G ; 491413-ZAL-X; 715399-VTA-C; 514614-Qvaoswkebvlnu; 976433-Vtwlgkarsev, Total; 639335-PUA-Q (Total);400176-Czkcu LDL-P; 085585-FUS Size; 030271-IB-MW Scorewas developed and its performance characteristics determinedby Dheere Bolo. It has not been cleared or approved by the Foodand Drug Administration.PATIENT WAS FASTINGPERFORMED BY: [employer] [address] [id number] BY: Owlient70 Tamayo [facility] [id number] Basophils/100 WBC (Bld) 1 % Normal [facility] Work Phone: Comment on above: Test(s) 010305-UFF-P ; 377402-CBM-X; 990180-OVL-C; 950859-Eusitfrmkqjcl; 263927-Zgqgdemjapn, Total; 687557-RXK-J (Total);086152-Ruerr LDL-P; 296570-SNR Size; 257582-GB-JH Scorewas developed and its performance characteristics determinedby Dheere Bolo. It has not been cleared or approved by the Foodand Drug Administration.PATIENT WAS FASTINGPERFORMED BY: Tiny Pictures[address] [id number] BY: Tiny PicturesRaritan Bay Medical CenterBzctza20[address] [facility] [id number] Eosinophils (Bld) [#/Vol] 0.1 {x10E3/uL} Normal 0.0-0.4 [facility] Work Phone: Comment on above: Test(s) 522339-HJQ-U ; 203191-SDQ-I; 090831-JTM-V; 758055-Zhdycmsgewnxj; 482983-Yxcgaiblveb, Total; 795261-VCO-A (Total);288541-Naxsl LDL-P; 436494-NHR Size; 399598-MH-JC Scorewas developed and its performance characteristics determinedby Dheere Bolo. It has not been cleared or approved by the Foodand Drug Administration.PATIENT WAS FASTINGPERFORMED BY: [employer] [address] [id number] BY: Tiny Pictures Jjokvy450[address] [facility] [id number] Eosinophils (Bld) [#/Vol] 0.1 10*3/uL Normal 0.0-0.4 [facility]; [facility] Work Phone: Comment on above: Test(s) 778282-KST-P ; 915834-MDU-X; 714118-GBN-Y; 738800-Ahujonlpfffux; 919043-Ljncvkhhihj, Total; 489232-XYV-G (Total);948987-Zywxi LDL-P; 008264-QWL Size; 035765-DS-SR Scorewas developed and its performance characteristics determinedby Dheere Bolo. It has not been cleared or approved by the Foodand Drug Administration.PATIENT WAS FASTINGPERFORMED BY: Tiny Pictures[address] [id number] BY: Catacel6[address] [facility] [id number] Eosinophils/100 WBC (Bld) 2 % Normal [facility] Work Phone: Comment on above: Test(s) 587407-ZXV-I ; 638673-JIJ-N; 373978-DBI-J; 735034-Xyfxhhnxojeir; 144635-Nbhqvsyigfj, Total; 501218-QEF-T (Total);530530-Ivguf LDL-P; 506309-UAF Size; 794261-CE-EU Scorewas developed and its performance characteristics determinedby Dheere Bolo. It has not been cleared or approved by the Foodand Drug Administration.PATIENT WAS FASTINGPERFORMED BY: Allmoxy[address] [id number] BY: Catacel6[address] [facility] [id number] Erythrocyte distribution width (RBC) [Ratio] 12.7 % Normal 11.7-15.4 [facility] Work Phone: Comment on above: Test(s) 046477-OVA-N ; 855159-LDR-L; 862386-NBS-M; 127504-Jwnmmsxmhovrm; 145019-Gysnfszpaie, Total; 639215-VAB-D (Total);079877-Iyfvt LDL-P; 347365-FDQ Size; 971845-YR-IE Scorewas developed and its performance characteristics determinedby Dheere Bolo. It has not been cleared or approved by the Foodand Drug Administration.PATIENT WAS FASTINGPERFORMED BY: Allmoxy[address] [id number] BY: Catacel6[address] [facility] [id number] Hematocrit (Bld) [Volume fraction] 40.8 % Normal 34.0-46.6 [facility] Work Phone: Comment on above: Test(s) 242905-NMV-B ; 814175-JNF-U; 804486-GMQ-G; 107151-Kzulyusjjkkyj; 973829-Nphnesamzou, Total; 218348-WYM-B (Total);874644-Zxjvc LDL-P; 932067-MDQ Size; 230016-AB-TA Scorewas developed and its performance characteristics determinedby Dheere Bolo. It has not been cleared or approved by the Foodand Drug Administration.PATIENT WAS FASTINGPERFORMED BY: [employer] [address] [id number] BY: Tiny Pictures Edlher9323 [facility] [id number] Hemoglobin (Bld) [Mass/Vol] 13.4 g/dL Normal 11.1-15.9 [facility] Work Phone: Comment on above: Test(s) 698957-MEV-P ; 809037-SUM-X; 077899-WPR-Q; 379700-Eokrnswwvbdep; 681114-Kzbcgcxvlut, Total; 016257-VRX-Y (Total);447570-Vxrfn LDL-P; 627647-AMU Size; 572271-GF-GA Scorewas developed and its performance characteristics determinedby Dheere Bolo. It has not been cleared or approved by the Foodand Drug Administration.PATIENT WAS FASTINGPERFORMED BY: [employer] eG[employer] [address] [id number] BY: Owlient70 Tamayo PaylocityNov[facility], [facility] [id number] Immature granulocytes (Bld) [#/Vol] 0.0 {x10E3/uL} Normal 0.0-0.1 [facility] Work Phone: Comment on above: Test(s) 176500-DWH-P ; 076878-MQG-X; 489842-ZAJ-U; 017026-Igicnatbmmfvx; 746576-Ywweckyshpw, Total; 863812-HOI-N (Total);443067-Zacqw LDL-P; 869799-TQX Size; 801773-VK-BD Scorewas developed and its performance characteristics determinedby Dheere Bolo. It has not been cleared or approved by the Foodand Drug Administration.PATIENT WAS FASTINGPERFORMED BY: [employer] [address] [id number] BY: Owlient[address] [facility] [id number] Immature granulocytes (Bld) [#/Vol] 0.0 10*3/uL Normal 0.0-0.1 [facility]; [facility] Work Phone: Comment on above: Test(s) 100133-XVA-T ; 806881-UUS-K; 810272-ELW-F; 392973-Hrnbskdeqyewy; 759659-Cebjhdlymjr, Total; 809669-YVS-S (Total);981937-Njfsj LDL-P; 561956-VAP Size; 091560-RZ-IB Scorewas developed and its performance characteristics determinedby Dheere Bolo. It has not been cleared or approved by the Foodand Drug Administration.PATIENT WAS FASTINGPERFORMED BY: [employer] D[employer] eG[employer] [address] [id number] BY: WhatsNew Asia6[address] [facility] [id number] Immature granulocytes/100 WBC (Bld) 0 % Normal [facility] Work Phone: Comment on above: Test(s) 289650-NDO-G ; 679682-RHN-C; 776228-HRY-Z; 283727-Dqddtluheiiyb; 983694-Eulvsmfksxi, Total; 131622-MSD-J (Total);144791-Kgcbj LDL-P; 011644-SHR Size; 939432-NG-SK Scorewas developed and its performance characteristics determinedby Dheere Bolo. It has not been cleared or approved by the Foodand Drug Administration.PATIENT WAS FASTINGPERFORMED BY: Dheere Bolo [address] [id number] BY: Dheere Bolo Hesfgy12[address] [facility] [id number] Lymphocytes (Bld) [#/Vol] 1.5 {x10E3/uL} Normal 0.7-3.1 [facility] Work Phone: Comment on above: Test(s) 910452-KHV-V ; 581819-XYW-X; 938707-OIN-I; 152947-Veeeedteukgxp; 517330-Irhdzturuub, Total; 779989-EKJ-Z (Total);846771-Khobh LDL-P; 907976-AIJ Size; 466609-GD-TY Scorewas developed and its performance characteristics determinedby Dheere Bolo. It has not been cleared or approved by the Foodand Drug Administration.PATIENT WAS FASTINGPERFORMED BY: [employer] [address] [id number] BY: Tiny Pictures Elxtvl8261 [facility] [id number] Lymphocytes (Bld) [#/Vol] 1.5 10*3/uL Normal 0.7-3.1 [facility]; [facility] Work Phone: Comment on above: Test(s) 381150-BCP-O ; 106185-CFI-N; 869254-BJH-Q; 449634-Cmgqccxwjkjlp; 407341-Ttzfeevzguh, Total; 035749-ANX-Z (Total);719569-Jbwvk LDL-P; 205927-LOF Size; 735597-RF-FZ Scorewas developed and its performance characteristics determinedby Dheere Bolo. It has not been cleared or approved by the Foodand Drug Administration.PATIENT WAS FASTINGPERFORMED BY: [employer] eGifter [address] [id number] BY: Catacel6[address] [facility] [id number] Lymphocytes/100 WBC (Bld) 22 % Normal [facility] Work Phone: Comment on above: Test(s) 197318-PLG-S ; 763715-JGX-J; 987874-RUN-Q; 626939-Lwtifqdbsfpzl; 205075-Daprsmevmbn, Total; 406540-PAG-V (Total);801169-Eufsi LDL-P; 358616-HRM Size; 213172-JK-WJ Scorewas developed and its performance characteristics determinedby Dheere Bolo. It has not been cleared or approved by the Foodand Drug Administration.PATIENT WAS FASTINGPERFORMED BY: [employer] D[employer] eG[employer] [address] [id number] BY: HealthQx Bjekql7[address] [facility] [id number] MCH (RBC) [Entitic mass] 29.9 pg Normal 26.6-33.0 [facility] Internal Medicine Work Phone: Comment on above: Test(s) 528983-VPS-J ; 919222-USH-B; 895980-JZS-X; 416152-Dcjklxyyernpc; 446365-Tdijzxtyzrp, Total; 673531-YYB-I (Total);972587-Igxzx LDL-P; 743369-YXT Size; 720335-JQ-LK Scorewas developed and its performance characteristics determinedby Dheere Bolo. It has not been cleared or approved by the Foodand Drug Administration.PATIENT WAS FASTINGPERFORMED BY: Allmoxy[address] [id number] BY: Owlient70 [facility] HealthAltavozCentral [facility] Hospital [id number] MCHC (RBC) [Mass/Vol] 32.8 g/dL Normal 31.5-35.7 [facility] Internal Medicine Work Phone: Comment on above: Test(s) 265181-IZH-C ; 174598-QBJ-J; 016127-NGV-U; 536279-Rhwoyvysklqvd; 575049-Iqevlzucnmo, Total; 773400-YIW-Y (Total);594400-Rezun LDL-P; 593359-YAC Size; 321466-MF-SD Scorewas developed and its performance characteristics determinedby Dheere Bolo. It has not been cleared or approved by the Foodand Drug Administration.PATIENT WAS FASTINGPERFORMED BY: Allmoxy[address] [id number] BY: Catacel[address] [facility] [id number] MCV (RBC) [Entitic vol] 91 fL Normal 79-97 [facility] Internal Medicine Work Phone: Comment on above: Test(s) 230772-PAR-L ; 319456-JXB-L; 047581-GZH-B; 488567-Jssgvdoorovku; 341211-Pghjpvdonln, Total; 897932-IWN-B (Total);777885-Yjedz LDL-P; 217320-XNJ Size; 403605-VQ-GR Scorewas developed and its performance characteristics determinedby Dheere Bolo. It has not been cleared or approved by the Foodand Drug Administration.PATIENT WAS FASTINGPERFORMED BY: Tiny Pictures[address] [id number] BY: Tiny PicturesRaritan Bay Medical CenterRieauw97[address] [facility] [id number] Monocytes (Bld) [#/Vol] 0.6 {x10E3/uL} Normal 0.1-0.9 [facility] Internal Medicine Work Phone: Comment on above: Test(s) 965412-TXY-B ; 183652-XYZ-C; 077337-HHL-J; 832685-Afbtjwbndvguz; 648071-Wclsvqalgcu, Total; 458277-XBJ-D (Total);256850-Ubzpd LDL-P; 677442-TIH Size; 172718-ME-CF Scorewas developed and its performance characteristics determinedby Dheere Bolo. It has not been cleared or approved by the Foodand Drug Administration.PATIENT WAS FASTINGPERFORMED BY: Tiny Pictures[address] [id number] BY: Tiny PicturesRaritan Bay Medical CenterYmpaml29[address] [facility] [id number] Monocytes (Bld) [#/Vol] 0.6 10*3/uL Normal 0.1-0.9 [facility]; [facility] Internal Medicine Work Phone: Comment on above: Test(s) 073679-XGW-L ; 262206-QHU-R; 668096-HYK-S; 353259-Tphhauqwkbzue; 183372-Xxfaoxgiqty, Total; 643934-GUM-C (Total);274518-Glwao LDL-P; 005053-TYR Size; 417994-IN-BE Scorewas developed and its performance characteristics determinedby Dheere Bolo. It has not been cleared or approved by the Foodand Drug Administration.PATIENT WAS FASTINGPERFORMED BY: Tiny Pictures[address] [id number] BY: Tiny PicturesCynthia Ville 1915870 [facility] [id number] Monocytes/100 WBC (Bld) 9 % Normal [facility] Work Phone: Comment on above: Test(s) 475015-VIE-J ; 427581-IJL-F; 703220-EKK-E; 779187-Saukfthymxndz; 593686-Uafbjgydqwq, Total; 922641-BYU-W (Total);439548-Atydx LDL-P; 092956-SXZ Size; 606167-AU-CN Scorewas developed and its performance characteristics determinedby Dheere Bolo. It has not been cleared or approved by the Foodand Drug Administration.PATIENT WAS FASTINGPERFORMED BY: [employer] [id number] BY: Dheere Bolo Tyrouu0920 [facility] [id number] Neutrophils (Bld) [#/Vol] 4.3 {x10E3/uL} Normal 1.4-7.0 [facility] Work Phone: Comment on above: Test(s) 856244-BXX-Y ; 578599-FCM-I; 641069-SQZ-R; 405349-Psuxkwrbkgdzc; 390186-Fsrhyakjzwy, Total; 479575-MWT-Y (Total);634077-Rhdar LDL-P; 344270-LQO Size; 758991-LT-FI Scorewas developed and its performance characteristics determinedby Dheere Bolo. It has not been cleared or approved by the Foodand Drug Administration.PATIENT WAS FASTINGPERFORMED BY: Dheere Bolo [address] [id number] BY: Tiny PicturesRaritan Bay Medical CenterGvleqk5388 [facility] [id number] Neutrophils (Bld) [#/Vol] 4.3 10*3/uL Normal 1.4-7.0 [facility]; [facility] Work Phone: Comment on above: Test(s) 928864-PWM-G ; 907272-RUY-T; 965827-TZN-Z; 179911-Ffpmbonsmjdrq; 639203-Qkeyrmwprqy, Total; 546807-PGC-Y (Total);550394-Lhmpo LDL-P; 882714-TGV Size; 171214-WO-NK Scorewas developed and its performance characteristics determinedby Dheere Bolo. It has not been cleared or approved by the Foodand Drug Administration.PATIENT WAS FASTINGPERFORMED BY: [employer] D[employer] eGifter [address] [id number] BY: Owlient70 Tamayo PaylocityNov[facility] Health, [facility] [id number] Neutrophils/100 WBC (Bld) 66 % Normal [facility] Work Phone: Comment on above: Test(s) 897143-IRI-B ; 327511-QDH-N; 242255-FNO-F; 631472-Snxgvjybnidtd; 628657-Ngwrfhoryto, Total; 364575-UCR-H (Total);434954-Wgimr LDL-P; 365443-VXK Size; 779998-JB-ET Scorewas developed and its performance characteristics determinedby Dheere Bolo. It has not been cleared or approved by the Foodand Drug Administration.PATIENT WAS FASTINGPERFORMED BY: [employer] D[employer] eGifter [address] [id number] BY: Owlient70 Tamayo ShopItCentral [facility] Hospital [id number] Platelets (Bld) [#/Vol] 331 {x10E3/uL} Normal 150-450 [facility] Work Phone: Comment on above: Test(s) 496724-FBS-K ; 452237-OPG-L; 537373-ASG-Y; 585705-Cuvunfnpnkwnf; 185986-Iyhuakylkxb, Total; 164340-GHC-H (Total);471716-Blwan LDL-P; 213432-ZNH Size; 707096-PE-YU Scorewas developed and its performance characteristics determinedby Dheere Bolo. It has not been cleared or approved by the Foodand Drug Administration.PATIENT WAS FASTINGPERFORMED BY: [employer] D[employer] eGifter [address] [id number] BY: Personal Estate Managerlin6[address] [facility] [id number] Platelets (Bld) [#/Vol] 331 10*3/uL Normal 150-450 [facility] Internal Medicine; [facility] Internal Medicine Work Phone: Comment on above: Test(s) 177745-WAV-R ; 432468-QAV-T; 283219-NPI-E; 848857-Utoiwadrlevxu; 882421-Ibopytpemsk, Total; 494538-EOT-E (Total);076261-Rozqq LDL-P; 590717-PBV Size; 124969-UY-PO Scorewas developed and its performance characteristics determinedby Dheere Bolo. It has not been cleared or approved by the Foodand Drug Administration.PATIENT WAS FASTINGPERFORMED BY: [employer] [place] [address] [id number] BY: Owlient[address] [facility] [id number] RBC (Bld) [#/Vol] 4.48 {x10E6/uL} Normal 3.77-5.28 [facility] Work Phone: Comment on above: Test(s) 689903-DWI-J ; 756054-CPA-I; 927771-RNI-E; 177255-Bibvehxibeawv; 285065-Dxyromqxkzd, Total; 388581-SSP-M (Total);209339-Ogguv LDL-P; 189647-GQX Size; 205295-FG-GL Scorewas developed and its performance characteristics determinedby Dheere Bolo. It has not been cleared or approved by the Foodand Drug Administration.PATIENT WAS FASTINGPERFORMED BY: Allmoxy[address] [id number] BY: [employer] Jeyfuf5[address] [facility] [id number] RBC (Bld) [#/Vol] 4.48 10*6/uL Normal 3.77-5.28 [facility] Internal Medicine; [facility] Internal Medicine Work Phone: Comment on above: Test(s) 285319-QBX-J ; 204017-JCJ-Z; 064220-PWC-T; 709177-Ohariaxurhive; 457314-Hgmqhwjucjm, Total; 901167-UNW-F (Total);206134-Cpisy LDL-P; 543919-TYF Size; 261099-LX-GI Scorewas developed and its performance characteristics determinedby Dheere Bolo. It has not been cleared or approved by the Foodand Drug Administration.PATIENT WAS FASTINGPERFORMED BY: Allmoxy[address] [id number] BY: Dheere Bolo Vkgcrw3781 [facility] [id number] WBC (Bld) [#/Vol] 6.6 {x10E3/uL} Normal 3.4-10.8 [facility] Work Phone: Comment on above: Test(s) 293295-PQZ-P ; 372718-SCA-E; 910955-LWC-N; 871535-Itxwajpfnxvks; 698910-Fkijtguhibb, Total; 565632-KEG-M (Total);943451-Ogvje LDL-P; 308425-TJY Size; 179900-MB-OP Scorewas developed and its performance characteristics determinedby Dheere Bolo. It has not been cleared or approved by the Foodand Drug Administration.PATIENT WAS FASTINGPERFORMED BY: [employer] D[employer] eGifter [address] [id number] BY: [employer] Aknduu5[address] [facility] [id number] WBC (Bld) [#/Vol] 6.6 10*3/uL Normal 3.4-10.8 [facility] Internal Medicine; [facility] Work Phone: Comment on above: Test(s) 473914-LMI-T ; 497995-DDY-Y; 922758-SOK-L; 202252-Tvrhgdywejoiy; 805571-Yeyqjfzsvsf, Total; 261069-XLO-M (Total);839557-Ibmms LDL-P; 379319-LQR Size; 409687-CK-YK Scorewas developed and its performance characteristics determinedby Dheere Bolo. It has not been cleared or approved by the Foodand Drug Administration.PATIENT WAS FASTINGPERFORMED BY: Allmoxy[address] [id number] BY: Catacel[address] [facility] [id number] METABOLIC PANEL, COMPREHENSI VE (04207)Ordered By: Spinning Mule Operator on 10-26-2019 Albumin [Mass/Vol] 4.5 g/dL Normal 3.8-4.8 [facility] Internal Medicine Work Phone: Comment on above: Test(s) 828232-UEV-O ; 356690-GDF-A; 403063-JBN-K; 921011-Uswssivvuhwmq; 758820-Jvwvwaqjqxe, Total; 310715-CND-Q (Total);029253-Lcguo LDL-P; 159970-PFW Size; 620238-JZ-WW Scorewas developed and its performance characteristics determinedby Dheere Bolo. It has not been cleared or approved by the Foodand Drug Administration.PATIENT WAS FASTINGPERFORMED BY: Allmoxy[address] [id number] BY: Catacel[address] [facility] [id number] Albumin/Globulin [Mass ratio] 2.0 {ratio} Normal 1.2-2.2 [facility] Work Phone: Comment on above: Test(s) 683847-OHC-O ; 446209-SZR-B; 775206-TGQ-S; 130412-Svkeiynjclgik; 439460-Iqpkvizllwz, Total; 960791-TTO-P (Total);023208-Qtdgq LDL-P; 701192-QJY Size; 214855-YV-BI Scorewas developed and its performance characteristics determinedby Dheere Bolo. It has not been cleared or approved by the Foodand Drug Administration.PATIENT WAS FASTINGPERFORMED BY: [email or web address] [address] [id number] BY: [email or web address] [id number] ALP [Catalytic activity/Vol] 79 [iU]/L Normal 39-117 [facility] Work Phone: Comment on above: Test(s) 418731-NUN-Q ; 050693-NEW-S; 303392-FMU-X; 018544-Onlhkdhpznwxv; 276603-Tltmhliikvm, Total; 270515-VWF-Q (Total);916337-Qpvve LDL-P; 645932-CEW Size; 274612-QU-JS Scorewas developed and its performance characteristics determinedby Dheere Bolo. It has not been cleared or approved by the Foodand Drug Administration.PATIENT WAS FASTINGPERFORMED BY: Tiny Pictures[address] [id number] BY: Tiny PicturesCynthia Ville 1915870 [facility] [id number] ALP [Catalytic activity/Vol] 79 U/L Normal 39-117 [facility]; [facility] Work Phone: Comment on above: Test(s) 633898-NMA-P ; 511933-SCI-K; 029553-OFI-D; 699312-Yjkktiythvtuc; 858103-Csoxotzjifl, Total; 541086-ANN-H (Total);454663-Zegvv LDL-P; 699837-RSA Size; 150480-HG-UX Scorewas developed and its performance characteristics determinedby Dheere Bolo. It has not been cleared or approved by the Foodand Drug Administration.PATIENT WAS FASTINGPERFORMED BY: Tiny Pictures[address] [id number] BY: Tiny PicturesRaritan Bay Medical CenterIhsvmv2202 [facility] [id number] ALT [Catalytic activity/Vol] 22 [iU]/L Normal 0-32 [facility] Work Phone: Comment on above: Test(s) 986607-EPO-F ; 506192-EXG-X; 612436-KNF-X; 294591-Psurqsooyouuv; 648787-Dgnkkvsneni, Total; 782043-HEN-Z (Total);010959-Snqyf LDL-P; 146145-GRY Size; 619521-TR-XW Scorewas developed and its performance characteristics determinedby Dheere Bolo. It has not been cleared or approved by the Foodand Drug Administration.PATIENT WAS FASTINGPERFORMED BY: Tiny Pictures[address] [id number] BY: Tiny PicturesRaritan Bay Medical CenterUojokc8[address] [facility] [id number] ALT [Catalytic activity/Vol] 22 U/L Normal 0-32 [facility]; [facility] Work Phone: Comment on above: Test(s) 971495-ASO-Y ; 731934-DVK-W; 843970-WUM-J; 081771-Iscbnaakwyygl; 462183-Desjditxbka, Total; 752003-RLN-W (Total);149464-Sizii LDL-P; 233164-ZWM Size; 729208-KA-GN Scorewas developed and its performance characteristics determinedby Dheere Bolo. It has not been cleared or approved by the Foodand Drug Administration.PATIENT WAS FASTINGPERFORMED BY: [employer] DBA eGifter [address] [id number] BY: Catacel[address] [facility] [address] [id number] AST [Catalytic activity/Vol] 19 [iU]/L Normal 0-40 [facility] Internal Medicine Work Phone: Comment on above: Test(s) 603444-TVJ-Z ; 498925-WHU-Q; 976731-FSZ-P; 547118-Zgacdjlhrwmtq; 274528-Smagimlryir, Total; 261766-WRH-I (Total);640545-Juftd LDL-P; 240870-OEK Size; 160908-QX-FV Scorewas developed and its performance characteristics determinedby Dheere Bolo. It has not been cleared or approved by the Foodand Drug Administration.PATIENT WAS FASTINGPERFORMED BY: OpenTable[address] [id number] BY: Tiny PicturesRaritan Bay Medical CenterYuknlo7453 [facility] [address] [id number] AST [Catalytic activity/Vol] 19 U/L Normal 0-40 [facility]; [facility] Work Phone: Comment on above: Test(s) 790379-RZO-K ; 055470-RQX-C; 045155-VLB-C; 294872-Arkjlvdypcqer; 584475-Bfakilufgli, Total; 893161-MBP-P (Total);890096-Rvsmd LDL-P; 780133-KHV Size; 205294-QK-QF Scorewas developed and its performance characteristics determinedby Dheere Bolo. It has not been cleared or approved by the Foodand Drug Administration.PATIENT WAS FASTINGPERFORMED BY: [employer] DBA eGifter [address] [id number] BY: WhatsNew Asia6[address] [facility] [address] [id number] Bilirubin [Mass/Vol] 0.3 mg/dL Normal 0.0-1.2 [facility] Internal Medicine Work Phone: Comment on above: Test(s) 356825-QYP-D ; 391076-PYT-M; 816004-RQO-O; 114173-Vgmxscxwyaiar; 128727-Omikbroummx, Total; 475917-YQU-W (Total);318250-Yjlds LDL-P; 280736-EDO Size; 511439-AI-CH Scorewas developed and its performance characteristics determinedby Dheere Bolo. It has not been cleared or approved by the Foodand Drug Administration.PATIENT WAS FASTINGPERFORMED BY: [employer] D[employer] eGifter [address] [id number] BY: real trendslin6[address] [id number] Calcium [Mass/Vol] 9.5 mg/dL Normal 8.7-10.3 [facility] Internal Medicine Work Phone: Comment on above: Test(s) 894446-XAZ-K ; 655497-EOP-G; 448969-EPD-X; 300358-Ptqspkwakgiid; 546781-Ihygglptgvu, Total; 186302-KYM-L (Total);855131-Cikgu LDL-P; 290966-INU Size; 290541-TY-TJ Scorewas developed and its performance characteristics determinedby Dheere Bolo. It has not been cleared or approved by the Foodand Drug Administration.PATIENT WAS FASTINGPERFORMED BY: [employer] D[employer] eGifter [address] [id number] BY: Catacel6370 [employer] [id number] Chloride [Moles/Vol] 99 mmol/L Normal 96-106 [facility] Internal Medicine Work Phone: Comment on above: Test(s) 537689-YHO-V ; 659967-FSE-N; 411467-ENE-Y; 768996-Txdtkjbqoutgi; 466247-Feasllcjryl, Total; 702218-FYP-M (Total);259124-Agewy LDL-P; 665771-UIR Size; 113046-DO-QA Scorewas developed and its performance characteristics determinedby Dheere Bolo. It has not been cleared or approved by the Foodand Drug Administration.PATIENT WAS FASTINGPERFORMED BY: Allmoxy[address] [id number] BY: Catacel6370 MyLifePlaceMur[facility] [id number] CO2 [Moles/Vol] 28 mmol/L Normal 20-29 [facility] Internal Medicine Work Phone: Comment on above: Test(s) 408692-GMA-O ; 891124-VVP-S; 362067-HGS-E; 551123-Lcbljdsxbfhgl; 305779-Icsnxbbjxkb, Total; 084832-GLM-R (Total);218921-Mukoc LDL-P; 146633-CGI Size; 961931-LS-ZZ Scorewas developed and its performance characteristics determinedby Dheere Bolo. It has not been cleared or approved by the Foodand Drug Administration.PATIENT WAS FASTINGPERFORMED BY: [employer] D[employer] eGifter [address] [id number] BY: Catacel6370 [facility] [id number] Creatinine [Mass/Vol] 0.75 mg/dL Normal 0.57-1.00 [facility] Internal Medicine Work Phone: Comment on above: Test(s) 334622-YTD-Y ; 590520-GRV-T; 177684-NCP-Y; 648852-Gahcwprsesdvr; 762588-Oyywqpjcxbj, Total; 487948-WFZ-U (Total);472866-Knrqv LDL-P; 206009-LTX Size; 414198-PG-LH Scorewas developed and its performance characteristics determinedby Dheere Bolo. It has not been cleared or approved by the Foodand Drug Administration.PATIENT WAS FASTINGPERFORMED BY: [employer] D[employer] eGifter [address] [id number] BY: Tiny PicturesCynthia Ville 1915870 [facility] [id number] GFR/1.73 sq M predicted among blacks CKD-EPI (S/P/Bld) [Vol rate/Area] 95 mL/min/1.73 Normal [facility] Work Phone: Comment on above: Test(s) 303214-UIC-X ; 294414-VXE-C; 016379-TFI-X; 864536-Jttelymayvnha; 113943-Zzkjdtelnpx, Total; 922076-AYW-G (Total);139157-Paljd LDL-P; 844548-WAQ Size; 307027-JO-WY Scorewas developed and its performance characteristics determinedby Dheere Bolo. It has not been cleared or approved by the Foodand Drug Administration.PATIENT WAS FASTINGPERFORMED BY: [employer] D[employer] eGifter [address] [id number] BY: Tiny PicturesRaritan Bay Medical CenterTklxsq8985 [facility] [id number] GFR/1.73 sq M predicted among non-blacks CKD-EPI (S/P/Bld) [Vol rate/Area] 82 mL/min/1.73 Normal [facility] Work Phone: Comment on above: Test(s) 148568-DNB-D ; 710523-WTW-E; 692000-KLT-S; 329861-Yvkfqabwrzfca; 414496-Mhunlshlufx, Total; 841766-WOT-G (Total);131771-Fhdtt LDL-P; 932382-PMH Size; 333948-MY-QA Scorewas developed and its performance characteristics determinedby Dheere Bolo. It has not been cleared or approved by the Foodand Drug Administration.PATIENT WAS FASTINGPERFORMED BY: [employer] D[employer] eGifter [address] [id number] BY: Tiny Pictures Lsxokf4802 [facility] [id number] Globulin (S) [Mass/Vol] 2.3 g/dL Normal 1.5-4.5 [facility] Internal Medicine Work Phone: Comment on above: Test(s) 847422-MOK-A ; 440610-YRY-T; 760610-KZN-N; 566029-Pjjzpklrqzhro; 124681-Aownyscfcdj, Total; 698834-LBR-I (Total);472316-Unvoc LDL-P; 643242-LLA Size; 202409-SK-TO Scorewas developed and its performance characteristics determinedby Dheere Bolo. It has not been cleared or approved by the Foodand Drug Administration.PATIENT WAS FASTINGPERFORMED BY: [employer] D[employer] eGifter [address] [id number] BY: Catacel[address] [facility] [address] [id number] Glucose [Mass/Vol] 110 mg/dL Abnormal 65-99 [facility] Internal Medicine Work Phone: Comment on above: Test(s) 183996-BZH-C ; 918555-CZN-G; 143332-XWO-P; 972945-Amdnuwojptqap; 141506-Izzmmiynxkr, Total; 210500-YQJ-L (Total);047278-Hbkuw LDL-P; 288657-YUZ Size; 585643-PL-IW Scorewas developed and its performance characteristics determinedby Dheere Bolo. It has not been cleared or approved by the Foodand Drug Administration.PATIENT WAS FASTINGPERFORMED BY: OpenTable[address] [id number] BY: Tiny Pictures Bjqrry5122 [facility] [id number] Potassium [Moles/Vol] 4.8 mmol/L Normal 3.5-5.2 [facility] Internal Medicine Work Phone: Comment on above: Test(s) 374316-HEC-Y ; 038190-HRW-R; 709300-EHJ-W; 479300-Hfxrgnybztdox; 466193-Nncynypsvao, Total; 385618-XNC-F (Total);709744-Jhvlc LDL-P; 988477-LPY Size; 303541-ZS-HG Scorewas developed and its performance characteristics determinedby Dheere Bolo. It has not been cleared or approved by the Foodand Drug Administration.PATIENT WAS FASTINGPERFORMED BY: Allmoxy[address] [id number] BY: Owlient[address] [facility] [address] [id number] Protein [Mass/Vol] 6.8 g/dL Normal 6.0-8.5 [facility] Internal Medicine Work Phone: Comment on above: Test(s) 172578-RLV-A ; 858577-IKU-B; 645962-YBH-L; 394790-Yzxxhqbmyyraa; 273009-Ehflokzjkeb, Total; 125054-RYC-M (Total);977318-Wpllh LDL-P; 557921-FGI Size; 909712-TA-HB Scorewas developed and its performance characteristics determinedby Dheere Bolo. It has not been cleared or approved by the Foodand Drug Administration.PATIENT WAS FASTINGPERFORMED BY: [employer] D[employer] eGifter [address] [id number] BY: [employer] Dctxmh6[address] [facility] [id number] Sodium [Moles/Vol] 141 mmol/L Normal 134-144 [facility] Internal Medicine Work Phone: Comment on above: Test(s) 254715-CGB-F ; 618686-CVT-U; 597331-EFD-G; 315660-Yanujichphftv; 440540-Firqzqsytrk, Total; 622985-UNW-L (Total);476616-Rdkhl LDL-P; 554949-WHB Size; 902441-YN-FK Scorewas developed and its performance characteristics determinedby Dheere Bolo. It has not been cleared or approved by the Foodand Drug Administration.PATIENT WAS FASTINGPERFORMED BY: [employer] D[employer] eGifter [address] [id number] BY: Catacel[address] [facility] [id number] Urea nitrogen [Mass/Vol] 12 mg/dL Normal 10-26 [facility] Work Phone: Comment on above: Test(s) 899021-SXM-X ; 643194-JRO-J; 047141-AVL-P; 984736-Iptxnaidemhrf; 866648-Dcdrxdqfyon, Total; 908940-DYE-A (Total);777662-Ycnle LDL-P; 934056-KQC Size; 114160-WX-RZ Scorewas developed and its performance characteristics determinedby Dheere Bolo. It has not been cleared or approved by the Foodand Drug Administration.PATIENT WAS FASTINGPERFORMED BY: Allmoxy[address] [id number] BY: Catacel[address] [facility] [id number] Urea nitrogen/Creatinine [Mass ratio] 16 mg/mg Normal 02-26 [facility] Work Phone: Comment on above: Test(s) 230172-IOC-O ; 571633-UIJ-M; 263646-FQH-C; 572460-Kfupvngnaaqqq; 368727-Cqokbxmzsfe, Total; 645571-BBC-Q (Total);905375-Ahfxr LDL-P; 772150-IPM Size; 712337-SG-QV Scorewas developed and its performance characteristics determinedby Dheere Bolo. It has not been cleared or approved by the Foodand Drug Administration.PATIENT WAS FASTINGPERFORMED BY: [employer] eGifter [address] [id number] BY: [employer] Mghdsk5[address] [id number] MICROALBUMINOrdered By: Syst em Cart Attendant on 10-26-2019 Albumin DL <= 20 mg/L (U) [Mass/Vol] 14.8 ug/mL Normal [facility] Work Phone: Comment on above: Test(s) 406670-FRV-X ; 167741-QJU-P; 200243-OCZ-M; 523403-Glbqtwwcxibty; 067318-Njpqnkyacoa, Total; 976202-IHW-R (Total);538632-Gtehk LDL-P; 046149-ZHJ Size; 111702-ZX-HG Scorewas developed and its performance characteristics determinedby Dheere Bolo. It has not been cleared or approved by the Foodand Drug Administration.PATIENT WAS FASTINGPERFORMED BY: [employer] D[employer] eGifter [address] [id number] BY: [employer] [address] [place] [address] [id number] Albumin/Creatinine (U) [Mass ratio] 35 {mg/g_creat} Abnormal 0-29 [facility] Work Phone: Comment on above: Normal: 0 - 29 Moder ately increased: 30 - 300 Severely increased: >300 Please note reference interval change Test(s) 601748-OGE-G ; 688614-JJA-L; 282214-AOE-L; 255260-Qoxtjvfkrcdaa; 301885-Krodpgduazt, Total; 716266-PQW-L (Total);051635-Nhjzv LDL-P; 658754-IIL Size; 644098-MA-KO Scorewas developed and its performance characteristics determinedby Dheere Bolo. It has not been cleared or approved by the Foodbeenz.com Drug Administration.PATIENT WAS FASTINGPERFORMED BY: [employer] D[employer] eGifter [address] [id number] BY: Catacel[address] [facility] [id number] Creatinine (U) [Mass/Vol] 42.4 mg/dL Normal [facility] Work Phone: Comment on above: Test(s) 315521-BYY-M ; 860231-MEY-T; 081316-RKR-Y; 624263-Gjryrfmgcccdf; 901776-Oicgjnbauhm, Total; 125706-LTX-M (Total);773427-Aecxj LDL-P; 397811-WTI Size; 956974-FW-WW Scorewas developed and its performance characteristics determinedby Dheere Bolo. It has not been cleared or approved by the Foodand Drug Administration.PATIENT WAS FASTINGPERFORMED BY: [employer] D[employer] eGifter [address] [id number] BY: Health[employer]x Wzweno4824 [facility] [id number] NMR Profile (44609)Ordered B y: Spinning Mule Operator on 10-26-2019 Cholesterol [Mass/Vol] 179 mg/dL Normal 100-199 [facility] Internal Medicine Work Phone: Comment on above: Test(s) 273784-RER-X ; 854382-WHS-V; 836706-XAN-L; 219283-Xdthazoeppeuj; 498928-Muxbmlkovfa, Total; 505876-OLT-L (Total);172709-Odmus LDL-P; 175505-QQA Size; 781225-CB-GC Scorewas developed and its performance characteristics determinedby Dheere Bolo. It has not been cleared or approved by the Foodand Drug Administration.PATIENT WAS FASTINGPERFORMED BY: Allmoxy[address] [id number] BY: Catacel[address] [facility] [id number] Lipoprotein.alpha [Moles/Vol] 44.0 umol/L Normal [facility] Work Phone: Comment on above: Test(s) 727226-MWZ-V ; 045728-YZZ-H; 660204-WBB-D; 628634-Guxtxrpijkbkg; 233575-Wysokvchxzl, Total; 979147-RGC-G (Total);008435-Pcxnv LDL-P; 168220-PVP Size; 863203-QO-ST Scorewas developed and its performance characteristics determinedby Dheere Bolo. It has not been cleared or approved by the Foodand Drug Administration.PATIENT WAS FASTINGPERFORMED BY: [employer] D[employer] eGifter [address] [id number] BY: Personal Estate Managerlin6[address] [facility] [address] [id number] Lipoprotein.beta.subpa rticle [Entitic length] 21.1 nm Normal [facility] Work Phone: Comment on above: INTERPRETATIVE INFORMATION PARTICLE CONCENTRATION AND SIZE <--Lower CVD Risk Higher CVD Risk--> LDL AND HDL PARTICLES Percentile in Reference Population HDL-P (total) High 75th 50th 25th Low >34.9 34.9 30.5 26.7 <26.7 . Small LDL-P Low 25th 50th 75th High <117 117 527 839 >839 . LDL Size <-Large (Pattern A)-> <-Small (Pattern B)-> 23.0 20.6 20.5 19.0 Small LDL-P and LDL Size are associated with CVD risk, but not afterLDL-P is taken into account. Test(s) 532928-UBW-P ; 527467-AZE-M; 543471-BKT-Y; 412783-Rkcyuvralxvoz; 570205-Ysrrzqgrhvs, Total; 558863-ETZ-L (Total);486920-Jizgm LDL-P; 372787-GYA Size; 952450-PD-IN Scorewas developed and its performance characteristics determinedby Dheere Bolo. It has not been cleared or approved by the Foodand Drug Administration.PATIENT WAS FASTINGPERFORMED BY: BN LabCo[address] [id number] BY: CB LabCoRaritan Bay Medical CenterKfgusa54[address] [facility] [address] [id number] Lipoprotein.beta.subpa rticle [Moles/Vol] 780 nmol/L Normal [facility] Work Phone: Comment on above: Low < 1000 Moderate 1000 - 1299 Borderline-High 1300 - 1599 High 1600 - 2000 Very High > 2000 Test(s) 144378-WLB-B ; 619912-OPF-N; 439355-ZPG-Q; 401705-Rpmsuetoyouuf; 078051-Ihvvuspudww, Total; 096582-FQM-U (Total);196351-Widew LDL-P; 442955-MDI Size; 196913-BO-PG Scorewas developed and its performance characteristics determinedby Dheere Bolo. It has not been cleared or approved by the Foodand Drug Administration.PATIENT WAS FASTINGPERFORMED BY: [employer] D[employer] eGifter [address] [id number] BY: Tiny Pictures Lflkni0628 [facility] [id number] Lipoprotein.beta.subpa rticle.small [Moles/Vol] 409 nmol/L Normal [facility] Work Phone: Comment on above: Test(s) 168877-XWM-J ; 811238-KQQ-S; 436126-TVD-M; 290378-Cpgswvfuqothf; 800626-Bekklmrhdlm, Total; 223201-XPC-I (Total);311980-Hhvab LDL-P; 720900-HTP Size; 784523-EP-AX Scorewas developed and its performance characteristics determinedby Dheere Bolo. It has not been cleared or approved by the Foodbeenz.com Drug Administration.PATIENT WAS FASTINGPERFORMED BY: [employer] D[employer] eGifter [address] [id number] BY: Catacel[address] [facility] [id number] Triglyceride [Mass/Vol] 131 mg/dL Normal 0-149 [facility] Work Phone: Comment on above: Test(s) 604373-ZID-W ; 008939-LHS-B; 865930-NQF-U; 625486-Jchbcllfajupu; 797069-Gnzdpkmknpe, Total; 641868-HMI-U (Total);933316-Teflc LDL-P; 127035-VMB Size; 044135-AR-EY Scorewas developed and its performance characteristics determinedby Dheere Bolo. It has not been cleared or approved by the Foodand Drug Administration.PATIENT WAS FASTINGPERFORMED BY: [employer] D[employer] eGifter [address] [id number] BY: Health[employer]x Cjejkx60[address] [facility] [id number] NMR Profile (70338) 72 mg/dL Normal [facility] Internal Medicine Work Phone: Comment on above: Test(s) 850790-JTA-P ; 520804-LSD-M; 514776-PNN-D; 633469-Qmpetuwqjgknc; 101508-Zmhsloddxlc, Total; 233935-PKR-X (Total);253343-Ztega LDL-P; 076895-LNT Size; 454913-JN-TK Scorewas developed and its performance characteristics determinedby Tiny Pictures. It has not been cleared or approved by the Foodand Drug Administration.PATIENT WAS FASTINGPERFORMED BY: JOSE EDUARDO Tiny Pictures[address] [id number] BY: CHITRA LabDigital Global SystemsNorthern Navajo Medical CenterCvzlnz9711 [address] [id number] NMR Profile (45067) 81 mg/dL Normal 0-99 [facility] Internal Medicine Work Phone: Comment on above: . Optimal < 100 Abov e optimal 100 - 129 Borderline 130 - 159 High 160 - 189 Very high > 189 .Effective October 31, 2019, Dheere Bolo is implementing an improvedequation to calculate Low Density Lipoprotein Cholesterol (LDL-C)concentrations, to be used in all lipid panels that report calculatedLDL-C. This equation was developed through a collaboration with [facility] ([facility]).[1] The NIHcalculation overcomes the limitations of the existing FriedewaldLDL-C equation and performs equally well in both fasting andnon-fasting individuals.1. Valentin M, Brenda C, Brigida Q, et al. A new equation forcalculation of low-density lipoprotein cholesterol inpatients with normolipidemia and/or hypertriglyceridemia.RAMAN Cardiol. 2019Apr 27. Doi:10.1001/jamacardio.2020.0013.LDL-C is inaccurate if patient is non-fasting. Test(s) 185952-YIR-Q ; 759317-YXY-H; 022932-NTY-K; 822492-Vwicoyjbzchsz; 079983-Ejgqasrbgla, Total; 191217-IZA-V (Total);752018-Oczln LDL-P; 539868-TJW Size; 336171-VP-VM Scorewas developed and its performance characteristics determinedby Dheere Bolo. It has not been cleared or approved by the Foodand Drug Administration.PATIENT WAS FASTINGPERFORMED BY: Allmoxy[address] [id number] BY: WhatsNew [employer] [facility] [id number] TSH (37544)Ordered By: Naehase m Cart Attendant on 10-26-2019 TSH Qn 0.807 {uIU/mL} Normal 0.450-4.500 Comprehen [facility] Internal Medicine Work Phone: Comment on above: Test(s) 585766-QIL-P ; 166447-FUQ-Z; 752660-KTR-X; 361398-Viirsiwjhnssb; 718882-Mnnjrqzhogq, Total; 921911-SOL-D (Total);600078-Qyvwa LDL-P; 143622-VJG Size; 643290-RX-HJ Scorewas developed and its performance characteristics determinedby Dheere Bolo. It has not been cleared or approved by the Foodand Drug Administration.PATIENT WAS FASTINGPERFORMED BY: Allmoxy[address] [id number] BY: Catacel[address] [facility] [id number] URINALYSIS, W/ MICRO (15092) Ordered By: Spinning Mule Operator on 10-26-2019 Appearance (U) Clear Normal [facility] Work Phone: Comment on above: Test(s) 022267-NJL-Y ; 059740-FED-D; 064549-RKY-C; 705170-Dgntvfwosinzx; 663688-Nkfnawjocod, Total; 464760-ZUA-L (Total);209729-Uktha LDL-P; 110342-RZQ Size; 074774-QM-JP Scorewas developed and its performance characteristics determinedby Dheere Bolo. It has not been cleared or approved by the Foodand Drug Administration.PATIENT WAS FASTINGPERFORMED BY: Allmoxyton1447 [facility] [id number] BY: Catacel[address] [facility] [id number] Bilirubin Ql (U) Negative Normal Comprehe nsive Internal Medicine Work Phone: Comment on above: Test(s) 345177-VFT-G ; 752618-IMQ-P; 014881-XUN-K; 483272-Hzaqdizweonzc; 310901-Ihsnbtgifnm, Total; 140638-PIL-R (Total);101608-Jueef LDL-P; 973682-MZI Size; 030835-XY-EC Scorewas developed and its performance characteristics determinedby Dheere Bolo. It has not been cleared or approved by the Foodand Drug Administration.PATIENT WAS FASTINGPERFORMED BY: Allmoxy[address] [id number] BY: Catacel[address] [facility] [id number] Bilirubin Ql (U) Negative Normal Comprehe nsive Internal Medicine; [facility] Work Phone: Comment on above: Test(s) 861107-CBR-T ; 117220-MIP-E; 419104-OQD-A; 675457-Odogxpdoxwzjq; 723554-Nygmieohtsw, Total; 860858-UBI-S (Total);983579-Ruoyr LDL-P; 738459-ZYS Size; 360913-LN-VD Scorewas developed and its performance characteristics determinedby Dheere Bolo. It has not been cleared or approved by the Foodand Drug Administration.PATIENT WAS FASTINGPERFORMED BY: Allmoxy[address] [id number] BY: [employer] Kgjykx8354 [facility] [id number] Color (U) Yellow Normal [facility] Work Phone: Comment on above: Test(s) 949230-WNP-I ; 689169-GMB-S; 061562-WRC-N; 394254-Cythzjotxcfyf; 020954-Afczlyobvfa, Total; 950575-TCH-F (Total);433654-Bftvu LDL-P; 792444-HHD Size; 712920-FG-NL Scorewas developed and its performance characteristics determinedby [employer] Pictures. It has not been cleared or approved by the Foodand Drug Administration.PATIENT WAS FASTINGPERFORMED BY: OpenTable[address] [id number] BY: Tiny PicturesRaritan Bay Medical CenterNaxgms6057 [facility] [id number] Glucose Ql (U) Negative Normal Comprehens estela Internal Medicine Work Phone: Comment on above: Test(s) 470307-SKP-V ; 402816-YHM-P; 571603-XDY-D; 006348-Fxtuxkaoufwhj; 649381-Wtqouvphnvk, Total; 756299-KGE-R (Total);369536-Llwgv LDL-P; 576887-TAQ Size; 175445-FM-UT Scorewas developed and its performance characteristics determinedby Dheere Bolo. It has not been cleared or approved by the Foodand Drug Administration.PATIENT WAS FASTINGPERFORMED BY: [employer] DBA eGifter [address] [id number] BY: uberVU[address] [facility] [id number] Glucose Ql (U) Negative Normal Comprehens [facility]; [facility] Work Phone: Comment on above: Test(s) 410637-HBU-I ; 138258-HCE-N; 682916-DNB-F; 301361-Xzqyttdiqkfdc; 289571-Dcbgbttppan, Total; 388704-CHW-J (Total);106630-Dedsb LDL-P; 520167-LWG Size; 282307-AV-ET Scorewas developed and its performance characteristics determinedby [employer] Pictures. It has not been cleared or approved by the Foodand Drug Administration.PATIENT WAS FASTINGPERFORMED BY: OpenTable[address] [id number] BY: Tiny PicturesRaritan Bay Medical CenterGgjbao10[address] [facility] [id number] Hemoglobin Ql (U) Negative Normal Compreh ensive Internal Medicine Work Phone: Comment on above: Test(s) 338021-QWX-B ; 490040-HNP-P; 261153-HEE-G; 307051-Zivnirtlixstu; 157846-Ffbobhdaoko, Total; 092934-XFH-W (Total);039461-Iqqgi LDL-P; 327379-AMR Size; 400509-WH-XP Scorewas developed and its performance characteristics determinedby Dheere Bolo. It has not been cleared or approved by the Foodand Drug Administration.PATIENT WAS FASTINGPERFORMED BY: [employer] eGifter [address] [id number] BY: Owlient[address] [facility] [id number] Hemoglobin Ql (U) Negative Normal Compreh ensive [facility]; [facility] Work Phone: Comment on above: Test(s) 281844-KSZ-P ; 252207-XOU-P; 757861-RHR-L; 032904-Fbauyznavouvt; 479658-Vaioksjqfxt, Total; 436452-DTE-D (Total);863102-Bdcup LDL-P; 871470-BPQ Size; 123473-MI-WI Scorewas developed and its performance characteristics determinedby Dheere Bolo. It has not been cleared or approved by the Foodand Drug Administration.PATIENT WAS FASTINGPERFORMED BY: Allmoxy[address] [id number] BY: Catacel[address] [facility] [id number] Ketones Ql (U) Negative Normal Comprehens [facility] Work Phone: Comment on above: Test(s) 302232-HHT-O ; 279570-TTA-E; 070091-AHM-B; 802452-Tyvlvixhykkes; 770435-Bjfdrwnjkqf, Total; 997182-TYT-C (Total);973038-Rgavm LDL-P; 087879-KNT Size; 134944-FX-UI Scorewas developed and its performance characteristics determinedby Dheere Bolo. It has not been cleared or approved by the Foodand Drug Administration.PATIENT WAS FASTINGPERFORMED BY: Allmoxy[address] [id number] BY: Catacel6370 [employer] [id number] Ketones Ql (U) Negative Normal Comprehens [facility]; [facility] Work Phone: Comment on above: Test(s) 296477-EEV-Z ; 436212-ONF-O; 941880-PBL-H; 491200-Mxfwcxxuyxbqa; 269221-Buqucjvurnp, Total; 659189-FVH-Y (Total);229484-Rjwnb LDL-P; 730804-RIR Size; 825677-VF-YW Scorewas developed and its performance characteristics determinedby Dheere Bolo. It has not been cleared or approved by the Foodand Drug Administration.PATIENT WAS FASTINGPERFORMED BY: Allmoxy[address] [id number] BY: Catacel6370 [employer] [id number] Leukocyte esterase Test strip Ql (U) 3+ Abnormal [facility] Work Phone: Comment on above: Test(s) 191720-OXM-T ; 012835-PII-U; 744070-JLF-C; 998470-Htebtfhgerxnv; 858143-Mdrgkdmauax, Total; 616970-GBD-W (Total);266815-Whkwh LDL-P; 065549-WUK Size; 137456-CN-FC Scorewas developed and its performance characteristics determinedby Dheere Bolo. It has not been cleared or approved by the Foodand Drug Administration.PATIENT WAS FASTINGPERFORMED BY: [email or web address] D[employer] eGifter [address] [id number] BY: Personal Estate Managerlin6370 [place] [facility]ityNov[facility], [facility] [id number] Microscopic observation LM Nom (Urine sed) See below: Normal [facility] Work Phone: Comment on above: Microscopic was rikki cated and was performed. Test(s) 196262-UTM-V ; 280381-RYE-N; 506081-XTD-M; 161374-Iwqasfmpecjil; 714443-Mqtihvpogdg, Total; 435040-OGL-M (Total);291969-Bqfig LDL-P; 745074-TCU Size; 892176-BP-CR Scorewas developed and its performance characteristics determinedby Dheere Bolo. It has not been cleared or approved by the Foodand Drug Administration.PATIENT WAS FASTINGPERFORMED BY: OpenTable[address] [id number] BY: Tiny Pictures Jarsnk5906 [facility] [id number] Nitrite Ql (U) Negative Normal Comprehens [facility] Work Phone: Comment on above: Test(s) 194797-WDO-N ; 506823-LUL-Z; 378973-PNB-M; 424031-Ycgawtovnbqfy; 058782-Uvinucvfqde, Total; 964602-BJW-S (Total);860220-Wfdmt LDL-P; 525424-TBN Size; 193859-JC-LZ Scorewas developed and its performance characteristics determinedby Dheere Bolo. It has not been cleared or approved by the Foodand Drug Administration.PATIENT WAS FASTINGPERFORMED BY: [employer] D[employer] eGifter [address] [id number] BY: Owlient70 [place] [facility] [id number] Nitrite Ql (U) Negative Normal Comprehens [facility] Internal Medicine; [facility] Internal Medicine Work Phone: Comment on above: Test(s) 251322-HUT-D ; 095798-XEC-J; 813998-XHP-F; 251187-Ktxkvxdgewfsh; 592055-Zbntuigsdrt, Total; 253080-HJH-I (Total);829264-Onwdn LDL-P; 216714-BDA Size; 414555-PS-CB Scorewas developed and its performance characteristics determinedby Dheere Bolo. It has not been cleared or approved by the Foodand Drug Administration.PATIENT WAS FASTINGPERFORMED BY: [employer] D[employer] eGifter [address] [id number] BY: Owlient70 [place] [facility] [id number] pH (U) 8.0 [pH] Abnormal 5.0-7.5 [facility] Work Phone: Comment on above: Test(s) 803564-WQM-D ; 384036-TVQ-M; 927122-AXC-U; 232264-Ycgcywfrfcvgg; 555114-Xtxrybutwlo, Total; 425740-LED-S (Total);314808-Jhkiv LDL-P; 474801-CZS Size; 066387-EI-FX Scorewas developed and its performance characteristics determinedby Dheere Bolo. It has not been cleared or approved by the Foodand Drug Administration.PATIENT WAS FASTINGPERFORMED BY: [email or web address] D[employer] eGifter [address] [id number] BY: [facility]zChristian [facility] [id number] Protein Ql (U) Negative Normal Comprehens [facility] Work Phone: Comment on above: Test(s) 454198-SHE-N ; 884971-DXR-I; 899979-EPD-G; 568013-Gnaoqsctgnkqr; 046384-Qsxqtzzhqqr, Total; 401239-CEQ-L (Total);097843-Uhtda LDL-P; 369479-VVH Size; 434172-KQ-QZ Scorewas developed and its performance characteristics determinedby Dheere Bolo. It has not been cleared or approved by the Foodand Drug Administration.PATIENT WAS FASTINGPERFORMED BY: [email or web address] D[employer] eGifter [address] [id number] BY: Catacel6370 [facility] [id number] Protein Ql (U) Negative Normal Comprehens [facility]; [facility] Work Phone: Comment on above: Test(s) 899484-LOL-K ; 109815-IXR-R; 643548-SZX-Z; 667739-Wrljgohfmzcas; 655585-Prdoygzycae, Total; 324164-HRT-Q (Total);880756-Eiblb LDL-P; 984864-QPL Size; 917324-TN-OG Scorewas developed and its performance characteristics determinedby Dheere Bolo. It has not been cleared or approved by the Foodand Drug Administration.PATIENT WAS FASTINGPERFORMED BY: Allmoxy[address] [id number] BY: Catacel6370 [facility]PlaceMur[facility] [id number] Specific gravity (U) [Rel density] 1.010 1 Normal 1.005-1.030 [facility] Internal Medicine Work Phone: Comment on above: Test(s) 665376-CJJ-Q ; 760769-SPY-S; 851420-VJX-L; 836547-Mjoexronzpfna; 473686-Lxdcqdoarfw, Total; 594056-NJW-R (Total);540901-Ilwoh LDL-P; 057112-PZR Size; 566821-IS-ET Scorewas developed and its performance characteristics determinedby Dheere Bolo. It has not been cleared or approved by the Foodand Drug Administration.PATIENT WAS FASTINGPERFORMED BY: Allmoxy[address] [id number] BY: Owlient70 [employer] [id number] Urobilinogen (U) [Mass/Vol] 0.2 mg/dL Normal 0.2-1.0 [facility] Internal Medicine Work Phone: Comment on above: Test(s) 977306-MZD-O ; 321882-NXV-S; 904375-GLK-T; 914697-Bdkbrztahnggu; 331790-Lesxtvmvjwg, Total; 370070-GJU-R (Total);614627-Cckty LDL-P; 987515-SBP Size; 471174-XG-XU Scorewas developed and its performance characteristics determinedby Dheere Bolo. It has not been cleared or approved by the Foodand Drug Administration.PATIENT WAS FASTINGPERFORMED BY: [email or web address] D[employer] eGifter [address] [id number] BY: Personal Estate Managerlin6[address] [facility] [id number] Urobilinogen Test strip (U) [Mass/Vol] 0.2 mg/dL Normal 0.2-1.0 [facility] Internal Medicine Work Phone: Comment on above: Test(s) 654804-NZK-E ; 187873-JYC-U; 743021-JRV-C; 376928-Wvwsogstoefrc; 353104-Gixtpptoova, Total; 552561-XOO-X (Total);497405-Pnfnt LDL-P; 051690-RAA Size; 498717-SR-IT Scorewas developed and its performance characteristics determinedby Dheere Bolo. It has not been cleared or approved by the Foodand Drug Administration.PATIENT WAS FASTINGPERFORMED BY: [email or web address] D[employer] eGifter [address] [id number] BY: Evim.netNovant Health, [facility] [id number] Blood Glucose , Office ([phone])Ordered By: Obdulia Bernard on 08-03-2019 Glucose Glucometer (BldC) [Moles/Vol] 105 1 Normal [facility] Internal Medicine Work Phone: HgA1C , Office ([phone])Ordere d By: Obdulia Bernard on 08-03-2019 HbA1c (Bld) [Mass fraction] 6.0 % Normal 4.6 - 7.1 [facility] Work Phone: CBC W/AUTO DIFF WBC (79241)O rdered By: Spinning Mule Operator on 04-21-2019 Basophils (Bld) [#/Vol] 0.0 {x10E3/uL} Normal 0.0-0.2 [facility] Work Phone: Comment on above: Test(s) 428722-ALL-M ; 905112-AMH-F; 130966-RZW-J; 139061-Hcurkatjqqobk; 081868-Icjbztibnys, Total; 690096-NFT-M (Total);074670-Pboqr LDL-P; 117773-AAR Size; 643436-AK-VS Scorewas developed and its performance characteristics determinedby Dheere Bolo. It has not been cleared or approved by the Foodand Drug Administration.PATIENT WAS FASTINGPERFORMED BY: [email or web address] D[employer] eGifter [address] [id number] BY: [facility] MobileCentral [facility] [id number] Basophils (Bld) [#/Vol] 0.0 10*3/uL Normal 0.0-0.2 [facility]; [facility] Work Phone: Comment on above: Test(s) 157030-MUF-U ; 737098-ZOK-L; 768636-JAT-A; 008810-Lxmjzownqywxq; 472772-Fandzbgbxvw, Total; 897101-WIW-F (Total);139585-Agxhn LDL-P; 808788-LHH Size; 283864-IN-QE Scorewas developed and its performance characteristics determinedby Dheere Bolo. It has not been cleared or approved by the Foodand Drug Administration.PATIENT WAS FASTINGPERFORMED BY: Allmoxy[address] [id number] BY: Catacel[address] [facility] [id number] Basophils/100 WBC (Bld) 1 % Normal [facility] Work Phone: Comment on above: Test(s) 660825-CEE-A ; 488532-FNN-M; 134830-ZHN-B; 711693-Qutfvnmoljzzn; 740642-Ozonntpkpqz, Total; 879784-QRH-M (Total);313719-Sniho LDL-P; 775396-SYD Size; 476672-ZU-OD Scorewas developed and its performance characteristics determinedby Dheere Bolo. It has not been cleared or approved by the Foodand Drug Administration.PATIENT WAS FASTINGPERFORMED BY: [email or web address] D[employer] eGifter [address] [id number] BY: [employer] Adocni4[address] [facility] [id number] Eosinophils (Bld) [#/Vol] 0.1 {x10E3/uL} Normal 0.0-0.4 [facility] Work Phone: Comment on above: Test(s) 408171-RKM-Z ; 515815-CRW-F; 796327-DEW-T; 331486-Bzjdhvgynerup; 878202-Qztjjhwksaa, Total; 359040-JPL-I (Total);746156-Twyyc LDL-P; 253282-BUX Size; 468001-QD-NS Scorewas developed and its performance characteristics determinedby Dheere Bolo. It has not been cleared or approved by the Foodand Drug Administration.PATIENT WAS FASTINGPERFORMED BY: [employer] D[employer] eGifter [address] [id number] BY: [employer] Pictures Jusdze[address] [facility] [id number] Eosinophils (Bld) [#/Vol] 0.1 10*3/uL Normal 0.0-0.4 [facility]; [facility] Work Phone: Comment on above: Test(s) 161149-HOQ-A ; 403666-RKM-A; 407904-JYJ-S; 552124-Yegffzjzuslvp; 659531-Qnopvdisdko, Total; 792840-GZW-K (Total);480438-Jqfxe LDL-P; 473872-YWN Size; 129560-IQ-ET Scorewas developed and its performance characteristics determinedby Dheere Bolo. It has not been cleared or approved by the Foodand Drug Administration.PATIENT WAS FASTINGPERFORMED BY: [employer] D[employer] eGifter [address] [id number] BY: Catacel[address] [facility] [id number] Eosinophils/100 WBC (Bld) 1 % Normal [facility] Internal Medicine Work Phone: Comment on above: Test(s) 538084-WET-J ; 956502-ARH-A; 571911-YIA-A; 524489-Rqavhrdnkqcbe; 242854-Rquujvnahsw, Total; 792864-XVM-E (Total);535590-Aikaz LDL-P; 621017-EHQ Size; 631594-BA-EY Scorewas developed and its performance characteristics determinedby Dheere Bolo. It has not been cleared or approved by the Foodand Drug Administration.PATIENT WAS FASTINGPERFORMED BY: [email or web address] D[employer] eGifter [address] [id number] BY: Owlient[address] [facility] [id number] Erythrocyte distribution width (RBC) [Ratio] 12.8 % Normal 11.7-15.4 [facility] Work Phone: Comment on above: Test(s) 477337-PDK-J ; 832988-QOU-P; 367619-MJA-W; 611977-Afykslvbiuiew; 354223-Cdnexyhqlev, Total; 571937-QMY-W (Total);862621-Raupf LDL-P; 944214-DGJ Size; 575983-PU-KU Scorewas developed and its performance characteristics determinedby Dheere Bolo. It has not been cleared or approved by the Foodand Drug Administration.PATIENT WAS FASTINGPERFORMED BY: Allmoxy[address] [id number] BY: Owlient[address] [facility] [id number] Hematocrit (Bld) [Volume fraction] 41.7 % Normal 34.0-46.6 [facility] Work Phone: Comment on above: Test(s) 144334-SMT-L ; 303988-JPZ-H; 377224-YLG-H; 531980-Xllwrgwigqsek; 562579-Iezabgpnsks, Total; 567894-OIZ-W (Total);075585-Juihq LDL-P; 357318-PDA Size; 757143-AX-VP Scorewas developed and its performance characteristics determinedby Dheere Bolo. It has not been cleared or approved by the Foodand Drug Administration.PATIENT WAS FASTINGPERFORMED BY: [employer] D[employer] eGifter [address] [id number] BY: Catacel[address] [facility] [id number] Hemoglobin (Bld) [Mass/Vol] 13.4 g/dL Normal 11.1-15.9 [facility] Work Phone: Comment on above: Test(s) 618601-GLN-J ; 219357-JZB-E; 257475-RES-X; 709359-Kbvqaxxxphkmn; 961958-Jcbvdcxskci, Total; 594767-CEX-R (Total);931577-Tnemx LDL-P; 573115-END Size; 412719-HP-HQ Scorewas developed and its performance characteristics determinedby Dheere Bolo. It has not been cleared or approved by the Foodand Drug Administration.PATIENT WAS FASTINGPERFORMED BY: Tiny Pictures[address] [id number] BY: [employer] Pictures Tzemuw17[address] [facility] [id number] Immature granulocytes (Bld) [#/Vol] 0.0 {x10E3/uL} Normal 0.0-0.1 [facility] Work Phone: Comment on above: Test(s) 622635-AQS-Q ; 574132-ZWZ-O; 591173-HBT-H; 807743-Rlpipxsddxzmu; 957593-Zzkajydsvib, Total; 784792-KJZ-I (Total);188840-Iluei LDL-P; 349744-GHQ Size; 697432-HL-EV Scorewas developed and its performance characteristics determinedby Dheere Bolo. It has not been cleared or approved by the Foodbeenz.com Drug Administration.PATIENT WAS FASTINGPERFORMED BY: [employer] D[employer] eGifter [address] [id number] BY: Owlient70 [facility] [id number] Immature granulocytes (Bld) [#/Vol] 0.0 10*3/uL Normal 0.0-0.1 [facility]; [facility] Work Phone: Comment on above: Test(s) 934070-BJA-C ; 795469-YVL-J; 599488-BNW-Q; 444694-Vurblifurvhtg; 148447-Izpjaiahlmu, Total; 320158-OGB-V (Total);035865-Wumgf LDL-P; 199706-KWM Size; 403734-WK-DW Scorewas developed and its performance characteristics determinedby Dheere Bolo. It has not been cleared or approved by the Foodand Drug Administration.PATIENT WAS FASTINGPERFORMED BY: Dheere Bolo [address] [id number] BY: uberVU[address] [facility] [id number] Immature granulocytes/100 WBC (Bld) 0 % Normal [facility] Work Phone: Comment on above: Test(s) 981228-YWP-C ; 623388-XUF-A; 027990-NAI-R; 150468-Cngvzcjdelxwf; 938603-Pjsxzxbevvb, Total; 465245-EVX-F (Total);342600-Xilzl LDL-P; 741585-AMI Size; 675695-HK-SM Scorewas developed and its performance characteristics determinedby Dheere Bolo. It has not been cleared or approved by the Foodand Drug Administration.PATIENT WAS FASTINGPERFORMED BY: [employer] D[employer] eGifter [address] [id number] BY: Owlient[address] [facility] [id number] Lymphocytes (Bld) [#/Vol] 1.6 {x10E3/uL} Normal 0.7-3.1 [facility] Work Phone: Comment on above: Test(s) 461850-IBW-Z ; 890329-FLH-V; 016177-NYL-O; 713807-Icdrogvuhowbh; 213662-Nspvzezkptb, Total; 525937-NGH-R (Total);542299-Mydmp LDL-P; 751940-GBL Size; 773873-BS-JG Scorewas developed and its performance characteristics determinedby Dheere Bolo. It has not been cleared or approved by the Foodand Drug Administration.PATIENT WAS FASTINGPERFORMED BY: [employer] D[employer] eGifter [address] [id number] BY: [employer] Psbczi4[address] [facility] [id number] Lymphocytes (Bld) [#/Vol] 1.6 10*3/uL Normal 0.7-3.1 [facility]; [facility] Work Phone: Comment on above: Test(s) 497789-JIS-S ; 778678-CRA-W; 571585-EZM-J; 572056-Mgqrqaasfhhfh; 022475-Zraybjunqty, Total; 606705-UEP-A (Total);041617-Fqtmu LDL-P; 252297-MWZ Size; 311004-PE-GL Scorewas developed and its performance characteristics determinedby Dheere Bolo. It has not been cleared or approved by the Foodand Drug Administration.PATIENT WAS FASTINGPERFORMED BY: [employer] D[employer] eGifter [address] [id number] BY: Owlient70 [place] [facility]Central [facility] [id number] Lymphocytes/100 WBC (Bld) 29 % Normal [facility] Work Phone: Comment on above: Test(s) 571763-NCF-Z ; 061825-MTZ-S; 414718-IXH-H; 308029-Drdeeprbzulge; 847095-Dnaorpqigkh, Total; 969096-YDA-X (Total);500811-Eyycz LDL-P; 346578-KPF Size; 740575-AJ-PZ Scorewas developed and its performance characteristics determinedby Dheere Bolo. It has not been cleared or approved by the Foodand Drug Administration.PATIENT WAS FASTINGPERFORMED BY: [employer] D[employer] eGifter [address] [id number] BY: Owlient70 [employer] [id number] MCH (RBC) [Entitic mass] 29.3 pg Normal 26.6-33.0 [facility] Work Phone: Comment on above: Test(s) 770586-DYT-U ; 694431-VMK-O; 685011-LDS-L; 909684-Rdvgcoljigbic; 858869-Numeghrglnr, Total; 673261-HAJ-L (Total);691517-Zxodo LDL-P; 033924-SFJ Size; 747658-KR-EL Scorewas developed and its performance characteristics determinedby Dheere Bolo. It has not been cleared or approved by the Foodand Drug Administration.PATIENT WAS FASTINGPERFORMED BY: [employer] eGifter [address] [id number] BY: Owlient70 [place] [facility]ItCentral [facility] [id number] MCHC (RBC) [Mass/Vol] 32.1 g/dL Normal 31.5-35.7 [facility] Work Phone: Comment on above: Test(s) 044413-SMQ-S ; 778534-ABC-Q; 270500-NQZ-A; 562701-Hardhpujxrcin; 133570-Aezviayydft, Total; 598806-KFJ-D (Total);427187-Mzxix LDL-P; 238359-TZJ Size; 618605-LF-ZR Scorewas developed and its performance characteristics determinedby Dheere Bolo. It has not been cleared or approved by the Foodand Drug Administration.PATIENT WAS FASTINGPERFORMED BY: [employer] [facility] [id number] BY: Owlient[address] [facility] [id number] MCV (RBC) [Entitic vol] 91 fL Normal 79-97 [facility] Internal Medicine Work Phone: Comment on above: Test(s) 271196-XWR-Q ; 915332-KNM-R; 884362-ZVG-A; 031476-Wxgtumhjphpvx; 061264-Mljukfznkec, Total; 278747-GMI-L (Total);973868-Jkyje LDL-P; 543175-FZR Size; 099977-IU-UQ Scorewas developed and its performance characteristics determinedby Dheere Bolo. It has not been cleared or approved by the Foodand Drug Administration.PATIENT WAS FASTINGPERFORMED BY: Allmoxy[address] [id number] BY: Catacel6[address] [facility] [id number] Monocytes (Bld) [#/Vol] 0.6 {x10E3/uL} Normal 0.1-0.9 [facility] Internal Medicine Work Phone: Comment on above: Test(s) 766813-PXV-G ; 195296-AGO-M; 697876-GPW-X; 175215-Cfbdffgfnbqip; 370736-Vvtqclwedhy, Total; 470131-PKE-M (Total);731614-Fgqgr LDL-P; 046779-YYQ Size; 739751-TY-XN Scorewas developed and its performance characteristics determinedby Dheere Bolo. It has not been cleared or approved by the Foodand Drug Administration.PATIENT WAS FASTINGPERFORMED BY: OpenTable[address] [id number] BY: [employer] Pictures Qdywxs0578 [place] PaylocityNov[facility] [id number] Monocytes (Bld) [#/Vol] 0.6 10*3/uL Normal 0.1-0.9 [facility]; [facility] Work Phone: Comment on above: Test(s) 834922-FGI-C ; 046749-SQM-V; 805127-FPO-I; 065648-Ebvjgyipcwzrn; 567363-Icnqydcjyml, Total; 962166-VLB-Y (Total);962956-Augcn LDL-P; 330098-CQL Size; 687585-AO-ED Scorewas developed and its performance characteristics determinedby Dheere Bolo. It has not been cleared or approved by the Foodbeenz.com Drug Administration.PATIENT WAS FASTINGPERFORMED BY: [employer] eGifter [address] [id number] BY: Owlient70 [place] PaylocityNov[facility] [id number] Monocytes/100 WBC (Bld) 10 % Normal [facility] Internal Medicine Work Phone: Comment on above: Test(s) 726797-RIW-R ; 083671-LYQ-G; 662102-YVC-G; 078122-Pbrjzszciopoc; 908502-Mqwlnfiqvxb, Total; 478229-FOU-L (Total);991234-Ybrle LDL-P; 380546-UUE Size; 470923-DP-YI Scorewas developed and its performance characteristics determinedby Dheere Bolo. It has not been cleared or approved by the Foodand Drug Administration.PATIENT WAS FASTINGPERFORMED BY: [employer] eG[employer] [address] [id number] BY: Catacel6370 [place] PaylocityNov[facility] [id number] Neutrophils (Bld) [#/Vol] 3.3 {x10E3/uL} Normal 1.4-7.0 [facility] Work Phone: Comment on above: Test(s) 335341-VVJ-M ; 491653-ACO-D; 802828-SLN-O; 204836-Lskcrxgvoqtvc; 621947-Rqhvnqpzurx, Total; 468713-RDH-W (Total);252649-Fytjd LDL-P; 937604-WHU Size; 912123-BC-SD Scorewas developed and its performance characteristics determinedby Dheere Bolo. It has not been cleared or approved by the Foodand Drug Administration.PATIENT WAS FASTINGPERFORMED BY: Allmoxy[address] [id number] BY: Owlient70 [facility] [id number] Neutrophils (Bld) [#/Vol] 3.3 10*3/uL Normal 1.4-7.0 [facility]; [facility] Work Phone: Comment on above: Test(s) 254869-GUY-L ; 235502-WLI-U; 034768-LSY-R; 486510-Xpzmdgjevywmf; 148697-Bbixnhlqnoc, Total; 995299-SCH-D (Total);101988-Fdeag LDL-P; 752250-HZQ Size; 796250-ZA-BT Scorewas developed and its performance characteristics determinedby Dheere Bolo. It has not been cleared or approved by the Foodand Drug Administration.PATIENT WAS FASTINGPERFORMED BY: [address] [id number] BY: Owlient[address] [facility] [id number] Neutrophils/100 WBC (Bld) 59 % Normal [facility] Work Phone: Comment on above: Test(s) 627715-CHK-O ; 073380-IUK-I; 978782-YAU-U; 639248-Czczngwqtrcpq; 226212-Hhmploqhnlo, Total; 252581-SRR-R (Total);379858-Gfahu LDL-P; 113580-LEW Size; 026240-IJ-NK Scorewas developed and its performance characteristics determinedby Dheere Bolo. It has not been cleared or approved by the Foodand Drug Administration.PATIENT WAS FASTINGPERFORMED BY: OpenTablerp [address] [id number] BY: Tiny Picturesrp Uitekn3464 [employer] [id number] Platelets (Bld) [#/Vol] 339 {x10E3/uL} Normal 150-450 [facility] Work Phone: Comment on above: Test(s) 440865-YNG-Q ; 493294-AMT-O; 616633-DFR-U; 982201-Oqnrdsxpdplhc; 462008-Zkcalmxpbvj, Total; 470977-MQQ-Y (Total);206371-Ekdxa LDL-P; 642040-BCB Size; 870311-OT-QP Scorewas developed and its performance characteristics determinedby Dheere Bolo. It has not been cleared or approved by the Foodand Drug Administration.PATIENT WAS FASTINGPERFORMED BY: [email or web address] eGifter [address] [id number] BY: Catacel6370 [employer] [id number] Platelets (Bld) [#/Vol] 339 10*3/uL Normal 150-450 [facility]; [facility] Work Phone: Comment on above: Test(s) 570194-MJU-K ; 789733-AET-W; 219574-PIB-J; 630390-Edszwqvykivix; 038816-Cvboxqpzsle, Total; 674480-TKG-Y (Total);835996-Lwiyh LDL-P; 876797-WNR Size; 828127-CT-SX Scorewas developed and its performance characteristics determinedby Dheere Bolo. It has not been cleared or approved by the Foodand Drug Administration.PATIENT WAS FASTINGPERFORMED BY: [email or web address] eG[employer] [address] [id number] BY: [employer] Spomwb6393 [employer] [id number] RBC (Bld) [#/Vol] 4.57 {x10E6/uL} Normal 3.77-5.28 [facility] Internal Medicine Work Phone: Comment on above: Test(s) 275702-IEH-G ; 443344-AZW-N; 348442-BOH-P; 161145-Cwuvpmkyyytxr; 725692-Fgyajfkjaph, Total; 641136-OWB-R (Total);606172-Jjmop LDL-P; 153488-EKD Size; 546846-HF-LE Scorewas developed and its performance characteristics determinedby [employer]. It has not been cleared or approved by the Foodand Drug Administration.PATIENT WAS FASTINGPERFORMED BY: Allmoxy[address] [id number] BY: O[address]ient[address] [facility] [id number] RBC (Bld) [#/Vol] 4.57 10*6/uL Normal 3.77-5.28 [facility] Internal Medicine; [facility] Internal Medicine Work Phone: Comment on above: Test(s) 817665-UNG-T ; 160108-ZRE-Y; 494690-SZB-A; 171963-Dbuxkejubnrgv; 434695-Shyvujrxqgm, Total; 648580-VZG-C (Total);369012-Odvsl LDL-P; 245014-KIE Size; 538826-GQ-CK Scorewas developed and its performance characteristics determinedby Dheere Bolo. It has not been cleared or approved by the Foodand Drug Administration.PATIENT WAS FASTINGPERFORMED BY: [email or web address] [address] [id number] BY: Personal Estate Managerlin6[address] [facility] [id number] WBC (Bld) [#/Vol] 5.6 {x10E3/uL} Normal 3.4-10.8 [facility] Internal Medicine Work Phone: Comment on above: Test(s) 505790-ZEN-S ; 249606-USM-B; 986927-BHF-S; 051230-Imnlikggjjadq; 984095-Hjtnxlbvuud, Total; 914621-JLN-A (Total);977600-Zfcpn LDL-P; 665329-YDR Size; 604208-WC-TS Scorewas developed and its performance characteristics determinedby Dheere Bolo. It has not been cleared or approved by the Foodand Drug Administration.PATIENT WAS FASTINGPERFORMED BY: [email or web address] [address] [id number] BY: [employer] Ctouth25[address] [facility] [id number] WBC (Bld) [#/Vol] 5.6 10*3/uL Normal 3.4-10.8 [facility] Internal [facility]; [facility] Work Phone: Comment on above: Test(s) 678562-ROK-A ; 539792-MYH-H; 440976-DVD-U; 971606-Eqpkbtydadtiq; 276806-Dfhaiytjcat, Total; 304065-IVA-I (Total);831116-Cufny LDL-P; 109991-DMH Size; 333669-TM-GY Scorewas developed and its performance characteristics determinedby Dheere Bolo. It has not been cleared or approved by the Foodand Drug Administration.PATIENT WAS FASTINGPERFORMED BY: [email or web address] eG[employer] [address] [id number] BY: [employer] Gcqynd8923 [facility] [id number] HGB A1C (51908)Ordered By: S ystem Cart Attendant on 04-21-2019 HbA1c (Bld) [Mass fraction] 6.0 % Abnormal 4.8-5.6 [facility] Work Phone: Comment on above: . Prediabetes: 5.7 - 6.4 Diabetes: >6.4 Glycemic control for adults with diabetes: <7.0 standing order every 4months; Test(s) 499093-CXZ-Q; 566551-GLQ-E; 146672-LEW-P; 454243-Wyykgerwgwipr; 692224-Rzkfwdnkkhn, Total; 108075-LPY-W (Total);943883-Uddlw LDL-P; 964609-AJK Size; 702734-CK-PI Scorewas developed and its performance characteristics determinedby Dheere Bolo. It has not been cleared or approved by the Foodand Drug Administration.PATIENT WAS FASTINGPERFORMED BY: [email or web address] eG[employer] [address] [id number] BY: Tiny PicturesRaritan Bay Medical CenterUnzjjt7656 [facility] [id number] METABOLIC PANEL, COMPREHENSI VE (02194)Ordered By: Spinning Mule Operator on 04-21-2019 Albumin [Mass/Vol] 4.7 g/dL Normal 3.8-4.8 [facility] Internal Medicine Work Phone: Comment on above: Please note refere nce interval change Test(s) 779066-MHZ-V ; 844549-QNM-Z; 462702-KFG-G; 164095-Hivdamyljtmvk; 703637-Nikunlngzmf, Total; 127201-GCD-I (Total);776725-Ttlar LDL-P; 035090-HNF Size; 031937-EI-PO Scorewas developed and its performance characteristics determinedby Dheere Bolo. It has not been cleared or approved by the Foodand Drug Administration.PATIENT WAS FASTINGPERFORMED BY: [email or web address] eGifter [address] [id number] BY: [employer] Kmkdmv09[address] [facility] [id number] Albumin/Globulin [Mass ratio] 1.8 {ratio} Normal 1.2-2.2 [facility] Internal Medicine Work Phone: Comment on above: Test(s) 765400-SGP-U ; 485511-CSH-E; 120014-NAT-W; 638583-Zkqjqfugpvbcv; 791041-Xruludawvkf, Total; 611215-AVQ-L (Total);142425-Iwjoc LDL-P; 651480-HBH Size; 874766-MT-LJ Scorewas developed and its performance characteristics determinedby Dheere Bolo. It has not been cleared or approved by the Foodand Drug Administration.PATIENT WAS FASTINGPERFORMED BY: [employer] eGifter [address] [id number] BY: Catacel6370 Tamayo [facility]ItCentral [facility] [id number] ALP [Catalytic activity/Vol] 94 [iU]/L Normal 39-117 [facility] Work Phone: Comment on above: Test(s) 237570-XIV-G ; 565115-BEM-G; 506174-POI-D; 002709-Tajxlhhdkjxos; 809643-Zwyiczqhuri, Total; 982235-NQQ-C (Total);472398-Aziof LDL-P; 409764-XTY Size; 940644-NH-MQ Scorewas developed and its performance characteristics determinedby Dheere Bolo. It has not been cleared or approved by the Foodand Drug Administration.PATIENT WAS FASTINGPERFORMED BY: [email or web address] eGifter [address] [id number] BY: Catacel6370 Tam[facility] ShopItCentral [facility] Hospital [id number] ALP [Catalytic activity/Vol] 94 U/L Normal 39-117 [facility] Internal Medicine; [facility] Internal Medicine Work Phone: Comment on above: Test(s) 262142-EXG-T ; 624907-RZW-Y; 465978-XHV-Y; 500276-Iisoafneekvnw; 587235-Cuauezoezxj, Total; 021951-WQL-P (Total);744951-Jahce LDL-P; 589320-PQW Size; 970931-HJ-HX Scorewas developed and its performance characteristics determinedby Dheere Bolo. It has not been cleared or approved by the Foodand Drug Administration.PATIENT WAS FASTINGPERFORMED BY: [employer] eGifter [address] [id number] BY: Catacel[address] [facility] [id number] ALT [Catalytic activity/Vol] 19 [iU]/L Normal 0-32 [facility] Work Phone: Comment on above: Test(s) 160377-MFU-Q ; 550865-RFP-V; 080722-KRZ-I; 240232-Azrszdtksksig; 802368-Pvwcyvsqffv, Total; 694566-CXN-P (Total);854616-Nqceb LDL-P; 055481-OXM Size; 378419-ZC-WI Scorewas developed and its performance characteristics determinedby Dheere Bolo. It has not been cleared or approved by the Foodand Drug Administration.PATIENT WAS FASTINGPERFORMED BY: Tiny Pictures[address] [id number] BY: Tiny PicturesRaritan Bay Medical CenterZbnmdl5689 [facility] [id number] ALT [Catalytic activity/Vol] 19 U/L Normal 0-32 [facility]; [facility] Work Phone: Comment on above: Test(s) 102505-HFM-O ; 845015-CWU-S; 524596-OYO-D; 251070-Nfsvzlyqgzpop; 178549-Pbzacvqtxua, Total; 892930-VUP-I (Total);357611-Ngajl LDL-P; 255132-JIG Size; 435395-TE-EV Scorewas developed and its performance characteristics determinedby Dheere Bolo. It has not been cleared or approved by the Foodand Drug Administration.PATIENT WAS FASTINGPERFORMED BY: Tiny Pictures[address] [id number] BY: Tiny Pictures Gvwiie[address] [facility] [id number] AST [Catalytic activity/Vol] 19 [iU]/L Normal 0-40 [facility] Internal Medicine Work Phone: Comment on above: Test(s) 289409-IVC-A ; 936077-GVT-N; 973081-YNB-J; 451996-Kzqzjfcukdjed; 341396-Shqhypbxtmm, Total; 107201-DXB-D (Total);967178-Ivoav LDL-P; 709212-ZKP Size; 700445-RK-NB Scorewas developed and its performance characteristics determinedby Dheere Bolo. It has not been cleared or approved by the Foodand Drug Administration.PATIENT WAS FASTINGPERFORMED BY: Tiny Pictures[address] [id number] BY: Tiny PicturesRaritan Bay Medical CenterNnmjcz0396 [facility] [id number] AST [Catalytic activity/Vol] 19 U/L Normal 0-40 [facility]; [facility] Work Phone: Comment on above: Test(s) 187950-VDW-V ; 763693-YUP-X; 566054-CUS-K; 232190-Zzbdctjwntnbf; 090893-Qrrbkkqtnot, Total; 331190-YCM-R (Total);497477-Zhpto LDL-P; 422089-ETT Size; 020940-UE-MB Scorewas developed and its performance characteristics determinedby Dheere Bolo. It has not been cleared or approved by the Foodand Drug Administration.PATIENT WAS FASTINGPERFORMED BY: Allmoxy[address] [id number] BY: Owlient[address] [facility] [id number] Bilirubin [Mass/Vol] 0.3 mg/dL Normal 0.0-1.2 [facility] Internal Medicine Work Phone: Comment on above: Test(s) 618778-ZCK-X ; 015355-JLE-S; 861333-MZE-Y; 079223-Esrbgzgdxelhm; 725999-Oapppdexzrf, Total; 954947-EMW-N (Total);210362-Nvyfn LDL-P; 213741-GCD Size; 953241-DL-YS Scorewas developed and its performance characteristics determinedby Dheere Bolo. It has not been cleared or approved by the Foodand Drug Administration.PATIENT WAS FASTINGPERFORMED BY: Allmoxy[address] [id number] BY: [facility] Cqwjaq027[address] [facility] [id number] Calcium [Mass/Vol] 9.6 mg/dL Normal 8.7-10.3 [facility] Internal Medicine Work Phone: Comment on above: Test(s) 998734-ITR-K ; 836988-TNB-Q; 733243-JPJ-S; 945014-Fusbrhjpnwaxo; 146368-Jqgmkfatgsa, Total; 758341-WSY-W (Total);941917-Mubnb LDL-P; 128369-CNI Size; 519571-BB-US Scorewas developed and its performance characteristics determinedby Dheere Bolo. It has not been cleared or approved by the Foodand Drug Administration.PATIENT WAS FASTINGPERFORMED BY: [employer] eGifter [address] [id number] BY: Tiny Pictures Iyoxdn6[address] [facility] [id number] Chloride [Moles/Vol] 102 mmol/L Normal 96-106 [facility] Internal Medicine Work Phone: Comment on above: Test(s) 658391-GOR-U ; 609276-QZH-F; 838971-KJH-L; 008099-Qpzrffmkrcduq; 934391-Tbdfgleavwi, Total; 468557-QCY-Y (Total);175157-Uumoz LDL-P; 308225-VYI Size; 894673-FN-KN Scorewas developed and its performance characteristics determinedby Dheere Bolo. It has not been cleared or approved by the Foodand Drug Administration.PATIENT WAS FASTINGPERFORMED BY: [email or web address] eGifter [address] [id number] BY: Catacel[address] [facility] [id number] CO2 [Moles/Vol] 27 mmol/L Normal 20-29 [facility] Internal Medicine Work Phone: Comment on above: Test(s) 347921-AEL-H ; 736178-LYV-R; 022790-ZEZ-J; 296979-Otnijmmrkxzrg; 392496-Xjzzurwsdkp, Total; 110897-WMJ-O (Total);546955-Gstby LDL-P; 936036-DRT Size; 553650-SZ-ZF Scorewas developed and its performance characteristics determinedby Dheere Bolo. It has not been cleared or approved by the Foodand Drug Administration.PATIENT WAS FASTINGPERFORMED BY: [email or web address] eGifter [address] [id number] BY: Dheere Bolo Bacdon[address] [facility] [id number] Creatinine [Mass/Vol] 0.78 mg/dL Normal 0.57-1.00 [facility] Internal Medicine Work Phone: Comment on above: Test(s) 585431-JKX-X ; 579187-RJS-P; 158491-GTI-K; 618402-Myskevqzjudwq; 101060-Treqkdcfgna, Total; 294660-SRY-Y (Total);368463-Bmicf LDL-P; 792915-SJY Size; 455635-UV-ZX Scorewas developed and its performance characteristics determinedby Dheere Bolo. It has not been cleared or approved by the Foodand Drug Administration.PATIENT WAS FASTINGPERFORMED BY: Allmoxy[address] [id number] BY: Owlient[address] [facility] [id number] GFR/1.73 sq M predicted among blacks CKD-EPI (S/P/Bld) [Vol rate/Area] 91 mL/min/1.73 [facility] Internal Medicine Work Phone: Comment on above: Test(s) 704193-YNB-H ; 371348-GNJ-Q; 561927-GLT-Z; 658393-Edydatrahzhdk; 994763-Rmqaeyzrrgk, Total; 974197-RKC-D (Total);602864-Uithr LDL-P; 330455-RXX Size; 032362-MW-FD Scorewas developed and its performance characteristics determinedby Dheere Bolo. It has not been cleared or approved by the Foodand Drug Administration.PATIENT WAS FASTINGPERFORMED BY: [email or web address] eG[employer] [address] [id number] BY: Catacel[address] [facility] [id number] GFR/1.73 sq M predicted among non-blacks CKD-EPI (S/P/Bld) [Vol rate/Area] 79 mL/min/1.73 [facility] Internal Medicine Work Phone: Comment on above: Test(s) 019365-RUN-F ; 320328-EXP-Z; 858503-CQR-P; 990954-Ioxucitxrjjeh; 716443-Gqjdnenqlhx, Total; 318453-ZND-F (Total);187738-Cyysq LDL-P; 528087-OWJ Size; 989450-IS-SM Scorewas developed and its performance characteristics determinedby Dheere Bolo. It has not been cleared or approved by the Foodand Drug Administration.PATIENT WAS FASTINGPERFORMED BY: [email or web address] eG[employer] [address] [id number] BY: Owlient70 [employer] [id number] Globulin (S) [Mass/Vol] 2.6 g/dL Normal 1.5-4.5 [facility] Internal Medicine Work Phone: Comment on above: Test(s) 082378-SRK-M ; 442789-ECD-L; 003355-IKZ-X; 092928-Rhdfawivwxnbl; 776300-Zflysxhacju, Total; 680740-THF-D (Total);258139-Tzonk LDL-P; 550764-HQX Size; 226109-OP-HI Scorewas developed and its performance characteristics determinedby Dheere Bolo. It has not been cleared or approved by the Foodand Drug Administration.PATIENT WAS FASTINGPERFORMED BY: [employer] eG[employer] [address] [id number] BY: Owlient70 [employer] [id number] Glucose [Mass/Vol] 111 mg/dL Abnormal 65-99 [facility] Internal Medicine Work Phone: Comment on above: Test(s) 425280-MYB-T ; 566405-TQP-V; 209846-MCA-W; 642404-Vduhlnbtextmo; 584639-Gvgtsxdtriw, Total; 296878-XIY-R (Total);036764-Shgsw LDL-P; 487557-HJW Size; 105339-GF-XD Scorewas developed and its performance characteristics determinedby Dheere Bolo. It has not been cleared or approved by the Foodand Drug Administration.PATIENT WAS FASTINGPERFORMED BY: [employer] eGifter [address] [id number] BY: Owlient70 Tam[facility] ShopItCentral [facility] Hospital [id number] Potassium [Moles/Vol] 4.8 mmol/L Normal 3.5-5.2 [facility] Internal Medicine Work Phone: Comment on above: Test(s) 860329-YJW-E ; 434382-ZQG-H; 176849-MZH-P; 074141-Wmcmlhzldhgwu; 797955-Suodentnlek, Total; 499758-FHN-H (Total);540973-Snxes LDL-P; 973977-EEI Size; 182099-HT-SH Scorewas developed and its performance characteristics determinedby Dheere Bolo. It has not been cleared or approved by the Foodand Drug Administration.PATIENT WAS FASTINGPERFORMED BY: [employer] [place] [address] [id number] BY: Owlient[address] [facility] [id number] Protein [Mass/Vol] 7.3 g/dL Normal 6.0-8.5 [facility] Internal Medicine Work Phone: Comment on above: Test(s) 787735-XCD-U ; 056907-YVX-D; 028956-CKV-V; 553048-Hgohfctotkynq; 830436-Wgblztbyoyo, Total; 310041-RHR-V (Total);463573-Ueiol LDL-P; 433288-YMU Size; 520554-RB-FG Scorewas developed and its performance characteristics determinedby Dheere Bolo. It has not been cleared or approved by the Foodand Drug Administration.PATIENT WAS FASTINGPERFORMED BY: Allmoxy[address] [id number] BY: Catacel6370 [facility] [id number] Sodium [Moles/Vol] 142 mmol/L Normal 134-144 [facility] Internal Medicine Work Phone: Comment on above: Test(s) 129115-UEI-A ; 213152-ELE-I; 498200-MXK-D; 836360-Vnwbyipfebxle; 721443-Wvyzncrnuhr, Total; 642836-NVI-B (Total);349694-Ctumg LDL-P; 168254-AGR Size; 850457-JQ-NW Scorewas developed and its performance characteristics determinedby Dheere Bolo. It has not been cleared or approved by the Foodand Drug Administration.PATIENT WAS FASTINGPERFORMED BY: [employer] [address] [id number] BY: Catacel6370 [facility] [id number] Urea nitrogen [Mass/Vol] 12 mg/dL Normal 10-26 [facility] Work Phone: Comment on above: Test(s) 154103-EUW-Y ; 839864-SNH-M; 717457-WHJ-G; 948056-Lemwwzsfnnzaj; 836711-Ujqlnzhdupd, Total; 498681-IIF-L (Total);030938-Tscpk LDL-P; 864882-HVT Size; 751922-NX-LR Scorewas developed and its performance characteristics determinedby Dheere Bolo. It has not been cleared or approved by the Foodand Drug Administration.PATIENT WAS FASTINGPERFORMED BY: Allmoxy[address] [id number] BY: Owlient70 [employer] [id number] Urea nitrogen/Creatinine [Mass ratio] 15 mg/mg Normal 02-26 [facility] Work Phone: Comment on above: Test(s) 279477-XJD-H ; 231948-MCZ-F; 440871-KXK-I; 609500-Krxcyeezvbqzq; 542169-Qywzrniqvql, Total; 922955-VLD-S (Total);013788-Wwakb LDL-P; 488269-QMU Size; 901304-RS-DE Scorewas developed and its performance characteristics determinedby Dheere Bolo. It has not been cleared or approved by the Foodand Drug Administration.PATIENT WAS FASTINGPERFORMED BY: [email or web address] [address] [id number] BY: Catacel[address] [facility] [id number] MICROALBUMINOrdered By: Syst em Cart Attendant on 04-21-2019 Albumin DL <= 20 mg/L (U) [Mass/Vol] mg/dL Normal [facility] Work Phone: Comment on above: Test(s) 199210-MYT-C ; 740273-ROZ-F; 575587-TST-B; 291132-Edzpzsdrzumwg; 384876-Eztbpecacjz, Total; 099127-QMT-C (Total);119404-Zumhl LDL-P; 862729-IRP Size; 554723-TC-NI Scorewas developed and its performance characteristics determinedby Dheere Bolo. It has not been cleared or approved by the Foodand Drug Administration.PATIENT WAS FASTINGPERFORMED BY: Allmoxy[address] [id number] BY: Owlient[address] [facility] [id number] Albumin DL <= 20 mg/L (U) [Mass/Vol] mg/dL Normal [facility]; [facility] Work Phone: Comment on above: Test(s) 772450-NRH-C ; 924164-HID-F; 914338-ENB-J; 138591-Yvmaebguevoxi; 324529-Aogbcnpxbyr, Total; 561191-KZY-H (Total);035782-Kxptj LDL-P; 149202-HHN Size; 087119-LM-ZK Scorewas developed and its performance characteristics determinedby Dheere Bolo. It has not been cleared or approved by the Foodand Drug Administration.PATIENT WAS FASTINGPERFORMED BY: [employer] [address] [id number] BY: Personal Estate Managerlin6[address] [facility] [id number] Albumin/Creatinine (U) [Mass ratio] <23 Normal 0-29 [facility] Work Phone: Comment on above: Normal: 0 - 29 Moder ately increased: 30 - 300 Severely increased: >300 Please note reference interval change Test(s) 870545-JMS-K ; 566051-TZK-V; 258591-PHT-E; 456318-Cbxzrxyncurwx; 545279-Zyzqvvytumu, Total; 173505-XUS-W (Total);116592-Dmfed LDL-P; 068641-JBM Size; 364324-FE-HL Scorewas developed and its performance characteristics determinedby Dheere Bolo. It has not been cleared or approved by the Foodand Drug Administration.PATIENT WAS FASTINGPERFORMED BY: [employer] [address] [id number] BY: Catacel[address] [facility] [id number] Creatinine (U) [Mass/Vol] 13.2 mg/dL Normal [facility] Internal Medicine Work Phone: Comment on above: Test(s) 639288-USD-V ; 026949-ONY-J; 905389-EOE-V; 587725-Lardpbpmryafy; 042139-Lkbbwloijwc, Total; 022773-KZY-H (Total);158111-Vrjyf LDL-P; 258853-FRA Size; 158797-ZN-DS Scorewas developed and its performance characteristics determinedby Dheere Bolo. It has not been cleared or approved by the Foodand Drug Administration.PATIENT WAS FASTINGPERFORMED BY: [employer] [address] [id number] BY: Owlient[address] [facility] [id number] NMR Profile (24990)Ordered B y: Spinning Mule Operator on 04-21-2019 Cholesterol [Mass/Vol] 200 mg/dL Abnormal 100-199 [facility] Internal Medicine Work Phone: Comment on above: Test(s) 797952-IAA-B ; 511311-NMI-M; 722297-SKL-E; 921501-Jyoyapdeosltf; 808494-Acdtbwyegyi, Total; 801834-ODB-K (Total);287864-Ruyam LDL-P; 057979-ITC Size; 384676-GG-CS Scorewas developed and its performance characteristics determinedby Dheere Bolo. It has not been cleared or approved by the Foodand Drug Administration.PATIENT WAS FASTINGPERFORMED BY: Allmoxy[address] [id number] BY: Owlient[address] [facility] [id number] Lipoprotein.alpha [Moles/Vol] 47.8 umol/L Normal [facility] Work Phone: Comment on above: Test(s) 221983-BJY-O ; 945072-ZLP-T; 374490-ILS-W; 767230-Kktpfunwckltm; 927216-Qwaaoctskol, Total; 713690-JFT-R (Total);787912-Bgeka LDL-P; 892848-ALM Size; 052478-QC-MY Scorewas developed and its performance characteristics determinedby Dheere Bolo. It has not been cleared or approved by the Foodand Drug Administration.PATIENT WAS FASTINGPERFORMED BY: meebee[address] [id number] BY: real trendslin6[address] [facility] [id number] Lipoprotein.beta.subpa rticle [Entitic length] 21.1 nm Normal [facility] Work Phone: Comment on above: INTERPRETATIVE INFORMATION PARTICLE CONCENTRATION AND SIZE <--Lower CVD Risk Higher CVD Risk--> LDL AND HDL PARTICLES Percentile in Reference Population HDL-P (total) High 75th 50th 25th Low >34.9 34.9 30.5 26.7 <26.7 . Small LDL-P Low 25th 50th 75th High <117 117 527 839 >839 . LDL Size <-Large (Pattern A)-> <-Small (Pattern B)-> 23.0 20.6 20.5 19.0 Small LDL-P and LDL Size are associated with CVD risk, but not afterLDL-P is taken into account. Test(s) 593203-QYL-O ; 930979-PYW-E; 175651-LZD-W; 278772-Yfzmgasswlbyp; 406061-Cfdfpoavlhr, Total; 425508-RMD-I (Total);957128-Nvgfv LDL-P; 745012-FGM Size; 839816-XW-PJ Scorewas developed and its performance characteristics determinedby Dheere Bolo. It has not been cleared or approved by the Foodand Drug Administration.PATIENT WAS FASTINGPERFORMED BY: [email or web address] [address] [id number] BY: [email or web address] [id number] Lipoprotein.beta.subpa rticle [Moles/Vol] 996 nmol/L Normal [facility] Work Phone: Comment on above: Low < 1000 Moderate 1000 - 1299 Borderline-High 1300 - 1599 High 1600 - 2000 Very High > 2000 Test(s) 953910-EML-E ; 651108-CDA-C; 589467-LYW-R; 207219-Wlfcndkhqcmzu; 002340-Jjgldgbhbci, Total; 050067-ZFB-M (Total);269937-Udiag LDL-P; 624602-MNZ Size; 050679-BV-WB Scorewas developed and its performance characteristics determinedby Dheere Bolo. It has not been cleared or approved by the Foodand Drug Administration.PATIENT WAS FASTINGPERFORMED BY: [email or web address] D[employer] eGifter [address] [id number] BY: Owlient70 [facility] [id number] Lipoprotein.beta.subpa rticle.small [Moles/Vol] 335 nmol/L Normal [facility] Work Phone: Comment on above: Test(s) 696112-HDB-O ; 090063-WKY-I; 802859-VMO-C; 710079-Wwnxdzreqcsvw; 527935-Uxzwjcwnevy, Total; 876447-DES-Y (Total);157261-Wkuwc LDL-P; 297547-XKJ Size; 121245-IH-BE Scorewas developed and its performance characteristics determinedby Dheere Bolo. It has not been cleared or approved by the Foodand Drug Administration.PATIENT WAS FASTINGPERFORMED BY: OpenTable[address] [id number] BY: Tiny Pictures Gqakyf8[address] [facility] [id number] Triglyceride [Mass/Vol] 127 mg/dL Normal 0-149 [facility] Internal Medicine Work Phone: Comment on above: Test(s) 898075-OLW-V ; 998374-JHB-Y; 342994-WAG-Y; 232635-Jinmtcdwenzxy; 413419-Yhcievvotgr, Total; 687957-SYQ-H (Total);407301-Fvijj LDL-P; 548031-LWY Size; 222920-TV-FY Scorewas developed and its performance characteristics determinedby Dheere Bolo. It has not been cleared or approved by the Foodand Drug Administration.PATIENT WAS FASTINGPERFORMED BY: [email or web address] [address] [id number] BY: HealthQx Utgcbo[address] [facility] [id number] NMR Profile (34546) 92 mg/dL Normal 0-99 [facility] Internal Medicine Work Phone: Comment on above: . Optimal < 100 Abov e optimal 100 - 129 Borderline 130 - 159 High 160 - 189 Very high > 189 .LDL-C is inaccurate if patient is non-fasting. Test(s) 737373-GFH-U ; 995773-AXD-U; 207592-KDF-J; 148489-Wowezbitpaiea; 941938-Mjxqnldlwmv, Total; 209989-YVK-G (Total);960702-Rstor LDL-P; 540370-YAO Size; 437232-KX-ON Scorewas developed and its performance characteristics determinedby Dheere Bolo. It has not been cleared or approved by the Foodand Drug Administration.PATIENT WAS FASTINGPERFORMED BY: [email or web address] [address] [id number] BY: HealthQxRaritan Bay Medical CenterLrkiox2747 [facility] [id number] NMR Profile (29403) 83 mg/dL Normal Compr ehensive Internal Medicine Work Phone: Comment on above: Test(s) 721226-HFS-S ; 597066-JFW-F; 045534-BKR-S; 470885-Ugypcxaomykwq; 176905-Lsarahqhwxk, Total; 925523-CRB-J (Total);534417-Oaakw LDL-P; 021970-LXC Size; 643529-JE-ZL Scorewas developed and its performance characteristics determinedby Dheere Bolo. It has not been cleared or approved by the Foodand Drug Administration.PATIENT WAS FASTINGPERFORMED BY: Ingen.io[address] [place] [address] [id number] BY: Owlient70 [facility] [id number] URINALYSIS, W/ MICRO (98441) Ordered By: Spinning Mule Operator on 04-21-2019 Appearance (U) Clear Normal Comprehens [facility] Work Phone: Comment on above: Test(s) 931927-IMV-X ; 664692-NUU-C; 415058-TQA-M; 960700-Axkuqpkmmmwgq; 516679-Ddkzctsqtyf, Total; 409577-MBW-L (Total);854518-Nqvjm LDL-P; 694221-OII Size; 443484-NQ-DI Scorewas developed and its performance characteristics determinedby Dheere Bolo. It has not been cleared or approved by the Foodand Drug Administration.PATIENT WAS FASTINGPERFORMED BY: Allmoxy[address] [id number] BY: Catacel6370 [employer] [id number] Bilirubin Ql (U) Negative Normal Comprehe nsive Internal Medicine Work Phone: Comment on above: Test(s) 770405-TNQ-L ; 686375-HVV-J; 333230-FHU-D; 595726-Bkevxzpnlnuxl; 669228-Xzlulxlqwlp, Total; 271126-CEP-H (Total);258204-Icpub LDL-P; 510234-MFA Size; 297490-EW-RV Scorewas developed and its performance characteristics determinedby Dheere Bolo. It has not been cleared or approved by the Foodand Drug Administration.PATIENT WAS FASTINGPERFORMED BY: [email or web address] [address] [id number] BY: Catacel6370 Tamayo [facility] [id number] Bilirubin Ql (U) Negative Normal Comprehe nsive Internal Medicine; [facility] Work Phone: Comment on above: Test(s) 172448-FQH-C ; 335847-UUD-P; 747134-CHZ-L; 838227-Mykfmmbynqcyc; 729043-Iyxoebmvvqm, Total; 631853-FIZ-W (Total);515574-Fcxld LDL-P; 712215-OQT Size; 561970-SB-ZJ Scorewas developed and its performance characteristics determinedby Dheere Bolo. It has not been cleared or approved by the Foodand Drug Administration.PATIENT WAS FASTINGPERFORMED BY: Allmoxy[address] [id number] BY: Catacel6370 [employer] [id number] Color (U) Yellow Normal [facility] Work Phone: Comment on above: Test(s) 027207-CDN-K ; 247222-FMJ-N; 099525-VOX-A; 216090-Hhqtmmvhbqlxt; 423167-Tprhotrssoi, Total; 604348-NJA-Q (Total);616596-Ervsm LDL-P; 399425-IRA Size; 893853-KM-CI Scorewas developed and its performance characteristics determinedby Dheere Bolo. It has not been cleared or approved by the Foodand Drug Administration.PATIENT WAS FASTINGPERFORMED BY: [email or web address] [address] [id number] BY: [employer] Ogeaie0202 [employer] [id number] Glucose Ql (U) Negative Normal Comprehens [facility] Work Phone: Comment on above: Test(s) 431165-WPO-H ; 501852-XGL-Q; 437111-ASO-J; 688822-Bdcmgcbefobfu; 879062-Cmepmmkassm, Total; 752434-XNH-A (Total);615632-Lcoaq LDL-P; 223475-WXO Size; 718618-HI-WW Scorewas developed and its performance characteristics determinedby Dheere Bolo. It has not been cleared or approved by the Foodand Drug Administration.PATIENT WAS FASTINGPERFORMED BY: Allmoxy[address] [id number] BY: Owlient70 [facility] [id number] Glucose Ql (U) Negative Normal Comprehens [facility]; [facility] Work Phone: Comment on above: Test(s) 399633-WIR-E ; 454228-EMS-J; 094767-SJW-F; 257643-Pywkjbxftrwvc; 409832-Mlhjfjdfqcs, Total; 770621-OSE-E (Total);877862-Rysrf LDL-P; 629905-VHC Size; 606335-YX-PB Scorewas developed and its performance characteristics determinedby Dheere Bolo. It has not been cleared or approved by the Foodand Drug Administration.PATIENT WAS FASTINGPERFORMED BY: Allmoxy[address] [id number] BY: Catacel6[address] [facility] [id number] Hemoglobin Ql (U) Negative Normal Compreh ensive Internal Medicine Work Phone: Comment on above: Test(s) 717606-ABS-W ; 609265-EUC-K; 905108-KUF-S; 049836-Lqwebugtjrcih; 081917-Jydfigailpr, Total; 526203-URF-Z (Total);797329-Nbikg LDL-P; 306057-BAY Size; 071201-NU-PI Scorewas developed and its performance characteristics determinedby Dheere Bolo. It has not been cleared or approved by the Foodand Drug Administration.PATIENT WAS FASTINGPERFORMED BY: Allmoxy[address] [id number] BY: HealthQxRaritan Bay Medical CenterUvqwit8838 [facility] [id number] Hemoglobin Ql (U) Negative Normal Compreh ensive Internal Medicine; [facility] Work Phone: Comment on above: Test(s) 474578-TSI-Z ; 561670-WIV-B; 948648-QVM-B; 731365-Udxvfmingpnga; 184621-Wyhwpdjlxyh, Total; 975584-XRS-X (Total);989332-Fsamt LDL-P; 919077-HUK Size; 374141-XF-SM Scorewas developed and its performance characteristics determinedby Dheere Bolo. It has not been cleared or approved by the Foodand Drug Administration.PATIENT WAS FASTINGPERFORMED BY: Allmoxy[address] [id number] BY: Catacel6[address] [facility] [id number] Ketones Ql (U) Negative Normal Comprehens [facility] Work Phone: Comment on above: Test(s) 149434-XVW-O ; 922022-XDY-O; 011878-QTV-C; 507643-Knkmgprslyrfq; 995910-Ipchwvjvazy, Total; 357303-DCT-B (Total);841664-Fpgia LDL-P; 770543-ZDM Size; 636045-KE-PW Scorewas developed and its performance characteristics determinedby Dheere Bolo. It has not been cleared or approved by the Foodand Drug Administration.PATIENT WAS FASTINGPERFORMED BY: [email or web address] D[employer] eGifter [address] [id number] BY: [employer] Knbbhf7391 [facility] [id number] Ketones Ql (U) Negative Normal Comprehens [facility]; [facility] Work Phone: Comment on above: Test(s) 933690-KUX-B ; 948224-NGC-J; 170440-JPB-C; 636762-Srdunfzsbsbbd; 999110-Egceurbyxhs, Total; 724217-GAO-B (Total);402266-Mwsgh LDL-P; 489057-RHJ Size; 267958-DB-EB Scorewas developed and its performance characteristics determinedby Dheere Bolo. It has not been cleared or approved by the Foodand Drug Administration.PATIENT WAS FASTINGPERFORMED BY: [email or web address] D[employer] eGifter [address] [id number] BY: Owlient70 [facility] [id number] Leukocyte esterase Test strip Ql (U) Negative Normal [facility] Work Phone: Comment on above: Test(s) 791626-ZUG-K ; 717390-RRA-C; 821885-TQG-L; 449146-Kotcvojozijyi; 524607-Jgqyufzwvjf, Total; 722674-JAY-F (Total);535450-Gcpxu LDL-P; 505720-VJO Size; 507155-YQ-ZJ Scorewas developed and its performance characteristics determinedby Dheere Bolo. It has not been cleared or approved by the Foodand Drug Administration.PATIENT WAS FASTINGPERFORMED BY: [email or web address] D[employer] eGifter [address] [id number] BY: Owlient70 [employer] [id number] Leukocyte esterase Test strip Ql (U) Negative Normal [facility]; [facility] Work Phone: Comment on above: Test(s) 141280-AZQ-M ; 894038-YQE-K; 399188-UGU-T; 532977-Gmpbvwzandbzg; 035005-Uhzlfsbsghe, Total; 424067-DUG-H (Total);800213-Gxdgc LDL-P; 707115-QBR Size; 318005-OR-ND Scorewas developed and its performance characteristics determinedby Dheere Bolo. It has not been cleared or approved by the Foodand Drug Administration.PATIENT WAS FASTINGPERFORMED BY: [email or web address] D[employer] eGifter [address] [id number] BY: Personal Estate Managerlin6370 [facility] [id number] Microscopic observation LM Nom (Urine sed) See below: Normal [facility] Work Phone: Comment on above: Microscopic was rikki cated and was performed. Test(s) 408661-KWI-O ; 667422-UPG-I; 862300-DAF-V; 258362-Phxxhqreuyksu; 817257-Ytbhsbfaoac, Total; 577273-FHA-L (Total);044995-Kqlck LDL-P; 924987-YQO Size; 467029-EC-PT Scorewas developed and its performance characteristics determinedby Dheere Bolo. It has not been cleared or approved by the Foodand Drug Administration.PATIENT WAS FASTINGPERFORMED BY: [email or web address] D[employer] eGifter [address] [id number] BY: Owlient70 [facility] [id number] Microscopic observation LM Nom (Urine sed) MICRON Normal [facility] Work Phone: Comment on above: Microscopic follows if indicated. Test(s) 700094-TSE-Z ; 996871-EZW-Y; 354333-DTH-G; 127712-Ixzfptljsayup; 436409-Nflmwxnbupz, Total; 567654-CQR-B (Total);478446-Ovriu LDL-P; 105849-FMU Size; 731219-GG-TC Scorewas developed and its performance characteristics determinedby Dheere Bolo. It has not been cleared or approved by the Foodand Drug Administration.PATIENT WAS FASTINGPERFORMED BY: [email or web address] D[employer] eGifter [address] [id number] BY: Personal Estate Managerlin6370 [facility] [id number] Nitrite Ql (U) Negative Normal Comprehens [facility] Work Phone: Comment on above: Test(s) 247078-OVC-W ; 978762-ZUU-R; 205268-FVR-I; 557321-Ztsxyeopmsccj; 982173-Cmjhdnrearv, Total; 787813-JNF-K (Total);616664-Achan LDL-P; 961638-ICO Size; 579415-CB-QL Scorewas developed and its performance characteristics determinedby Dheere Bolo. It has not been cleared or approved by the Foodand Drug Administration.PATIENT WAS FASTINGPERFORMED BY: OpenTable[address] [id number] BY: Tiny PicturesRaritan Bay Medical CenterJkrtcx3703 [facility] [id number] Nitrite Ql (U) Negative Normal Comprehens [facility]; [facility] Work Phone: Comment on above: Test(s) 296286-TFM-K ; 316825-ZNP-K; 347311-ULN-L; 738021-Eajqrbrvttseq; 823726-Kjgehthbbww, Total; 145654-WKD-I (Total);522235-Ttkym LDL-P; 474926-QIN Size; 695383-HL-IV Scorewas developed and its performance characteristics determinedby Dheere Bolo. It has not been cleared or approved by the Foodand Drug Administration.PATIENT WAS FASTINGPERFORMED BY: [email or web address] D[employer] eGifter [address] [id number] BY: [employer] Bdpcyz1242 [facility] [id number] pH (U) 7.5 [pH] Normal 5.0-7.5 [facility] Work Phone: Comment on above: Test(s) 080800-FDA-B ; 582198-OFH-T; 978976-EQX-K; 329722-Quppekxyilnca; 831358-Yyqclizomlf, Total; 670093-FQE-R (Total);911211-Iiezg LDL-P; 126152-JSI Size; 656578-VX-MK Scorewas developed and its performance characteristics determinedby Dheere Bolo. It has not been cleared or approved by the Foodand Drug Administration.PATIENT WAS FASTINGPERFORMED BY: [email or web address] D[employer] eGifter [address] [id number] BY: HealthQxRaritan Bay Medical CenterAsrqwf8893 [facility] [id number] Protein Ql (U) Negative Normal Comprehens [facility] Work Phone: Comment on above: Test(s) 198207-EZO-L ; 521724-LPS-K; 453902-LJQ-V; 158596-Obkiszzsblmcx; 358257-Pwgqaawqofq, Total; 148014-KQZ-O (Total);835641-Yxjjd LDL-P; 549696-XBF Size; 815383-YO-FJ Scorewas developed and its performance characteristics determinedby Dheere Bolo. It has not been cleared or approved by the Foodand Drug Administration.PATIENT WAS FASTINGPERFORMED BY: [email or web address] D[employer] eGifter [address] [id number] BY: Owlient70 [facility] [id number] Protein Ql (U) Negative Normal Comprehens [facility]; [facility] Work Phone: Comment on above: Test(s) 861411-JFR-P ; 565697-BTX-G; 507067-GKP-C; 873793-Pldwtgrotpdji; 453073-Dwiiirbvgns, Total; 780652-LKZ-O (Total);088187-Hglrp LDL-P; 325358-JVM Size; 081160-CB-KX Scorewas developed and its performance characteristics determinedby Dheere Bolo. It has not been cleared or approved by the Foodand Drug Administration.PATIENT WAS FASTINGPERFORMED BY: Allmoxy[address] [id number] BY: Owlient70 [facility] [id number] Specific gravity (U) [Rel density] 1.005 1 Normal 1.005-1.030 [facility] Work Phone: Comment on above: Test(s) 946095-LVB-L ; 609119-KAH-F; 442873-JVF-D; 496374-Xzjvksbwjseem; 660877-Ztvpifaqyip, Total; 111900-JYY-D (Total);896871-Lfeuh LDL-P; 881612-PMM Size; 376704-GD-QT Scorewas developed and its performance characteristics determinedby Dheere Bolo. It has not been cleared or approved by the Foodand Drug Administration.PATIENT WAS FASTINGPERFORMED BY: [email or web address] D[employer] eGifter [address] [id number] BY: Owlient70 [employer] [id number] Urobilinogen (U) [Mass/Vol] 0.2 mg/dL Normal 0.2-1.0 [facility]; [facility] Work Phone: Comment on above: Test(s) 697929-WIU-T ; 427190-FLD-R; 164409-QTW-Z; 958487-Fotgrudcgtkcn; 983243-Kbkmdkihmrr, Total; 438946-NDT-U (Total);386375-Xtpab LDL-P; 645287-VIA Size; 841923-UX-KM Scorewas developed and its performance characteristics determinedby Dheere Bolo. It has not been cleared or approved by the Foodand Drug Administration.PATIENT WAS FASTINGPERFORMED BY: [facility] [employer] [place] [address] [id number] BY: Catacel6370 [facility]LifePlaceMur[facility] [id number] Urobilinogen Test strip (U) [Mass/Vol] 0.2 mg/dL Normal 0.2-1.0 [facility] Internal Medicine Work Phone: Comment on above: Test(s) 486949-APB-Y ; 449302-VFP-L; 736403-ZCK-U; 188043-Onhdxbqfeucny; 563567-Vknanhuhnel, Total; 595732-GHW-U (Total);841114-Pjdcz LDL-P; 025128-IEE Size; 643783-AY-OP Scorewas developed and its performance characteristics determinedby Dheere Bolo. It has not been cleared or approved by the Foodand Drug Administration.PATIENT WAS FASTINGPERFORMED BY: Allmoxy[address] [id number] BY: Catacel6370 Tam[place] [facility]Nov[facility], [facility] [id number] Vital Signs Date Time Vital Sign Value Performing Clinician Facility 04-25-2024 11:09-0500 Body height 160.[address] Beryl Keane DO Work Phone: [facility] 04-25-2024 11:09-0500 Body mass index (BMI) [Ratio] 43.6 kg/m2 Dr. Beryl Keane DO Work Phone: [facility] 04-25-2024 11:09-0500 Body weight 111.[address] Beryl Keane DO Work Phone: [facility] 04-25-2024 11:09-0500 Diastolic blood pressure 81 mm[Hg] Dr. Beryl Keane DO Work Phone: [facility] 04-25-2024 11:09-0500 Systolic blood pressure 166 mm[Hg] Dr. Beryl Keane DO Work Phone: [facility] 01-01-2023 09:02-0400 Body height 162.56 cm [facility]; [facility] Work Phone: 01-01-2023 09:02-0400 Body mass index (BMI) [Ratio] 41.77 kg/m2 [facility]; [facility] Work Phone: 01-01-2023 09:02-0400 Body surface area Derived from formula 2.13 m2 [facility]; [facility] Work Phone: 01-01-2023 09:02-0400 Body temperature 97.4 [degF] [facility]; [facility] Work Phone: 01-01-2023 09:02-0400 Body weight 110.39 kg [facility]; [facility] Work Phone: 01-01-2023 09:02-0400 Diastolic blood pressure 74 mm[Hg] [facility]; [facility] Work Phone: Comment on above: Patient Position: Sitting; Cuff Location : Left Arm; Cuff Size: Standard 01-01-2023 09:02-0400 Heart rate 75 /min [facility]; [facility] Work Phone: Comment on above: Pattern: Regular 01-01-2023 09:02-0400 Respiratory rate 16 /min Ashwin Ogden [facility]; [facility] Work Phone: Comment on above: Pattern: Unlabored 01-01-2023 09:02-0400 SaO2% (BldA) [Mass fraction] 99 % [facility]; [facility] Work Phone: Comment on above: Room air 01-01-2023 09:02-0400 Systolic blood pressure 120 mm[Hg] Ashwin Alyssa [facility]; [facility] Work Phone: Comment on above: Patient Position: Sitting; Cuff Location : Left Arm; Cuff Size: Standard 10-22-2022 08:36-0400 Body height 162.56 cm Gisselle Slarb [employer]EE[employer] TRIM[employer] [facility]; [facility] Work Phone: 10-22-2022 08:36-0400 Body mass index (BMI) [Ratio] 41.22 kg/m2 Gisselle Slarb [employer]EE[employer] TRIMMER [facility]; [facility] Work Phone: 10-22-2022 08:36-0400 Body surface area Derived from formula 2.11 m2 Gisselle Slarb [employer]EE[employer] TR[employer] [facility]; [facility] Work Phone: 10-22-2022 08:36-0400 Body temperature 97.6 [degF] Gisselle Slarb [employer]EE[employer] TRIMMER [facility]; [facility] Work Phone: Comment on above: Method: Temporal 10-22-2022 08:36-0400 Body weight 108.92 kg Gisselle Slarb [employer]EEF TRIMMER [facility]; [facility] Work Phone: 10-22-2022 08:36-0400 Diastolic blood pressure 76 mm[Hg] Gisselle Slarb [employer]EEF TRIMMER [facility]; [facility] Work Phone: Comment on above: Patient Position: Sitting; Cuff Location : Left Arm; Cuff Size: Standard 10-22-2022 08:36-0400 Heart rate 74 /min Gisselle Slarb [employer]EE[employer] TRIMMER [facility]; [facility] Work Phone: Comment on above: Pattern: Regular 10-22-2022 08:36-0400 Respiratory rate 16 /min Gisselle Garcia [facility]; [facility] Work Phone: Comment on above: Pattern: Unlabored 10-22-2022 08:36-0400 SaO2% (BldA) [Mass fraction] 97 % Gisselle Garcia [facility]; [facility] Work Phone: Comment on above: Room air 10-22-2022 08:36-0400 Systolic blood pressure 116 mm[Hg] Gisselle Garcia [facility]; [facility] Work Phone: Comment on above: Patient Position: Sitting; Cuff Location : Left Arm; Cuff Size: Standard 09-25-2022 07:19-0400 Body height 162.56 cm [facility]; [facility] Work Phone: 09-25-2022 07:19-0400 Body mass index (BMI) [Ratio] 41.22 kg/m2 [facility]; [facility] Work Phone: 09-25-2022 07:19-0400 Body surface area Derived from formula 2.11 m2 [facility]; [facility] Work Phone: 09-25-2022 07:19-0400 Body temperature 96.9 [degF] [facility]; [facility] Work Phone: 09-25-2022 07:19-0400 Body weight 108.92 kg [facility]; [facility] Work Phone: 09-25-2022 07:19-0400 Diastolic blood pressure 72 mm[Hg] [facility]; [facility] Work Phone: Comment on above: Patient Position: Sitting; Cuff Location : Left Arm; Cuff Size: Standard 09-25-2022 07:19-0400 Heart rate 79 /min [facility]; [facility] Work Phone: Comment on above: Pattern: Regular 09-25-2022 07:19-0400 Respiratory rate 16 /min [facility]; [facility] Work Phone: Comment on above: Pattern: Unlabored 09-25-2022 07:19-0400 SaO2% (BldA) [Mass fraction] 96 % [facility]; [facility] Work Phone: Comment on above: Room air 09-25-2022 07:19-0400 Systolic blood pressure 118 mm[Hg] [facility]; [facility] Work Phone: Comment on above: Patient Position: Sitting; Cuff Location : Left Arm; Cuff Size: Standard 06-19-2022 08:14-0400 [facility] height 162.[facility]; [facility] Work Phone: 06-19-2022 08:14-0400 Body mass index (BMI) [Ratio] 40.04 kg/m2 [facility]; [facility] Work Phone: 06-19-2022 08:14-0400 Body surface area Derived from formula 2.09 m2 [facility]; [facility] Work Phone: 06-19-2022 08:14-0400 Body temperature 98.4 [degF] Mick [facility]; [facility] Work Phone: 06-19-2022 08:14-0400 Body weight 105.8 kg [facility]; [facility] Work Phone: 06-19-2022 08:14-0400 Diastolic blood pressure 80 mm[Hg] [facility]; [facility] Work Phone: Comment on above: Patient Position: Sitting; Cuff Location : Left Arm; Cuff Size: Standard 04-20-2023 08:14-0400 Heart rate 88 /min Mick Das [facility]; [facility] Work Phone: Comment on above: Pattern: Regular 06-19-2022 08:14-0400 Respiratory rate 16 /min Mick Das [facility]; [facility] Work Phone: Comment on above: Pattern: Unlabored 06-19-2022 08:14-0400 SaO2% (BldA) [Mass fraction] 98 % Mick Das [facility]; [facility] Work Phone: Comment on above: Room air 06-19-2022 08:14-0400 Systolic blood pressure 130 mm[Hg] [facility]; [facility] Work Phone: Comment on above: Patient Position: Sitting; Cuff Location : Left Arm; Cuff Size: Standard 03-19-2022 08:19-0500 Body height 162.56 cm [facility]; [facility] Work Phone: 03-19-2022 08:19-0500 Body mass index (BMI) [Ratio] 40.04 kg/m2 [facility]; [facility] Work Phone: 03-19-2022 08:19-0500 Body surface area Derived from formula 2.09 m2 [facility]; [facility] Work Phone: 03-19-2022 08:19-0500 Body temperature 96.9 [degF] Mick Das [facility]; [facility] Work Phone: 03-19-2022 08:19-0500 Body weight 105.8 kg [facility]; [facility] Work Phone: 03-19-2022 08:19-0500 Diastolic blood pressure 80 mm[Hg] [facility]; [facility] Work Phone: Comment on above: Patient Position: Sitting; Cuff Location : Left Arm; Cuff Size: Standard 03-19-2022 08:19-0500 Heart rate 71 /min [facility]; [facility] Work Phone: Comment on above: Pattern: Regular 03-19-2022 08:19-0500 Respiratory rate 16 /min [facility]; [facility] Work Phone: Comment on above: Pattern: Unlabored 03-19-2022 08:19-0500 SaO2% (BldA) [Mass fraction] 99 % [facility]; [facility] Work Phone: Comment on above: Room air 03-19-2022 08:19-0500 Systolic blood pressure 130 mm[Hg] [facility]; [facility] Work Phone: Comment on above: Patient Position: Sitting; Cuff Location : Left Arm; Cuff Size: Standard 12-11-2021 08:13-0400 Body height 162.56 cm [facility]; [facility] Work Phone: 12-11-2021 08:13-0400 Body mass index (BMI) [Ratio] 40.51 kg/m2 [facility]; [facility] Work Phone: 12-11-2021 08:13-0400 Body surface area Derived from formula 2.1 m2 [facility]; [facility] Work Phone: 12-11-2021 08:13-0400 Body temperature 96.9 [degF] [facility] Com[facility]; [facility] Work Phone: 12-11-2021 08:13-0400 Body weight 107.05 kg [facility]; [facility] Work Phone: 12-11-2021 08:13-0400 Diastolic blood pressure 80 mm[Hg] [facility] Internal Medicine; [facility] Work Phone: Comment on above: Patient Position: Sitting; Cuff Location : Left Arm; Cuff Size: Standard 12-11-2021 08:13-0400 Heart rate 69 /min Mick Das [facility]; [facility] Work Phone: Comment on above: Pattern: Regular 12-11-2021 08:13-0400 Respiratory rate 16 /min Mick Das [facility] Com[facility]; [facility] Work Phone: Comment on above: Pattern: Unlabored 12-11-2021 08:13-0400 SaO2% (BldA) [Mass fraction] 98 % Mick Das [facility]; [facility] Work Phone: Comment on above: Room air 12-11-2021 08:13-0400 Systolic blood pressure 142 mm[Hg] Mick Das [facility]; [facility] Work Phone: Comment on above: Patient Position: Sitting; Cuff Location : Left Arm; Cuff Size: Standard 09-05-2021 07:58-0400 Body height 162.56 cm Anaya Orlando MA [facility]; [facility] Work Phone: 09-05-2021 07:58-0400 Body mass index (BMI) [Ratio] 39.91 kg/m2 Anaya Orlando MA [facility]; [facility] Work Phone: 09-05-2021 07:58-0400 Body surface area Derived from formula 2.09 m2 Anaya Orlando MA [facility]; [facility] Work Phone: 09-05-2021 07:58-0400 Body temperature 97.1 [degF] Anaya Orlando MA [facility]; [facility] Work Phone: Comment on above: Method: Infrared 09-05-2021 07:58-0400 Body weight 105.46 kg Anaya Orlando MA [facility]; [facility] Work Phone: 09-05-2021 07:58-0400 Diastolic blood pressure 76 mm[Hg] Anaya Orlando MA [facility]; [facility] Work Phone: Comment on above: Patient Position: Sitting; Cuff Location : Left Arm; Cuff Size: Standard 09-05-2021 07:58-0400 Heart rate 77 /min Anaya Orlando MA [facility]; [facility] Work Phone: Comment on above: Pattern: Regular 09-05-2021 07:58-0400 Respiratory rate 16 /min Anaya Orlando MA [facility]; [facility] Work Phone: Comment on above: Pattern: Unlabored 09-05-2021 07:58-0400 SaO2% (BldA) [Mass fraction] 96 % Anaya Orlando MA [facility]; [facility] Work Phone: Comment on above: Room air 09-05-2021 07:58-0400 Systolic blood pressure 130 mm[Hg] Anaya Orlando MA [facility]; [facility] Work Phone: Comment on above: Patient Position: Sitting; Cuff Location : Left Arm; Cuff Size: Standard 07-10-2021 12:39-0400 Body height 162.56 cm Obdulia Bernard [facility]; [facility] Work Phone: 07-10-2021 12:39-0400 Body mass index (BMI) [Ratio] 40.94 kg/m2 Obdulia Bernard [facility]; [facility] Work Phone: 07-10-2021 12:39-0400 Body surface area Derived from formula 2.11 m2 Obdulai Bernard [facility]; [facility] Work Phone: 07-10-2021 12:39-0400 Body weight 108.18 kg Obdulia Bernard [facility]; [facility] Work Phone: 07-10-2021 12:39-0400 Diastolic blood pressure 83 mm[Hg] Obdulia Bernard [facility]; [facility] Work Phone: Comment on above: Patient Position: Sitting; Cuff Location : Left Arm; Cuff Size: Standard 07-10-2021 12:39-0400 Heart rate 70 /min Obdulia Bernard [facility]; [facility] Work Phone: Comment on above: Pattern: Regular 07-10-2021 12:39-0400 Systolic blood pressure 138 mm[Hg] Obdulia Bernard [facility]; [facility] Work Phone: Comment on above: Patient Position: Sitting; Cuff Location : Left Arm; Cuff Size: Standard 06-17-2021 08:32-0400 Body height 162.56 cm Beryl Keane DO Work Phone: [facility]; [facility] Work Phone: Comment on above: ate ham and easter dinner yesterday - bp normally 120-130 06-17-2021 08:32-0400 Body mass index (BMI) [Ratio] 40.94 kg/m2 Beryl Martinezon DO Work Phone: [facility]; [facility] Work Phone: Comment on above: ate ham and easter dinner yesterday - bp normally 120-130 06-17-2021 08:32-0400 Body surface area Derived from formula 2.11 m2 Beryl Martinezon DO Work Phone: [facility]; [facility] Work Phone: Comment on above: ate ham and easter dinner yesterday - bp normally 120-130 06-17-2021 08:32-0400 Body temperature 97.3 [degF] Beryl Keane DO Work Phone: [facility]; [facility] Work Phone: Comment on above: Method: Infrared ate ham and easter d inner yesterday - bp normally 120-130 06-17-2021 08:32-0400 Body weight 108.18 kg Beryl Martinezon DO Work Phone: [facility]; [facility] Work Phone: Comment on above: ate ham and easter dinner yesterday - bp normally 120-130 06-17-2021 08:32-0400 Diastolic blood pressure 80 mm[Hg] Beryl Martinezon DO Work Phone: [facility]; [facility] Work Phone: Comment on above: Patient Position: Sitting; Cuff Location : Left Arm; Cuff Size: Standard ate ham and easter d inner yesterday - bp normally 120-130 06-17-2021 08:32-0400 Heart rate 75 /min Beryl Lakhwinder DO Work Phone: [facility]; [facility] Work Phone: Comment on above: Pattern: Regular ate ham and eas[employer] d inner yesterday - bp normally 120-130 06-17-2021 08:32-0400 Respiratory rate 16 /min Beryl Lakhwinder DO Work Phone: [facility]; [facility] Work Phone: Comment on above: Pattern: Unlabored ate ham and eas[employer] d inner yesterday - bp normally 120-130 06-17-2021 08:32-0400 SaO2% (BldA) [Mass fraction] 95 % Beryl Lakhwinder DO Work Phone: [facility]; [facility] Work Phone: Comment on above: Room air ate ham and easter d inner yesterday - bp normally 120-130 06-17-2021 08:32-0400 Systolic blood pressure 140 mm[Hg] Beryl Lakhwinder DO Work Phone: [facility]; [facility] Work Phone: Comment on above: Patient Position: Sitting; Cuff Location : Left Arm; Cuff Size: Standard ate ham and easter d inner yesterday - bp normally 120-130 05-16-2021 07:11-0400 Body height 162.56 cm Obdulia Bernard [facility]; [facility] Work Phone: 05-16-2021 07:11-0400 Body mass index (BMI) [Ratio] 40.59 kg/m2 Obdulia Alius [facility]; [facility] Work Phone: 05-16-2021 07:11-0400 Body surface area Derived from formula 2.1 m2 [facility]; [facility] Work Phone: 05-16-2021 07:11-0400 Body temperature 97.3 [degF] Obdulia Bernard [facility] Com[facility]; [facility] Work Phone: Comment on above: Method: Infrared 05-16-2021 07:11-0400 Body weight 107.28 kg Obdulia Bernard [facility]; [facility] Work Phone: 05-16-2021 07:11-0400 Diastolic blood pressure 78 mm[Hg] Obdulia Bernard [facility]; [facility] Work Phone: Comment on above: Patient Position: Sitting; Cuff Location : Left Arm; Cuff Size: Standard 05-16-2021 07:11-0400 Heart rate 76 /min Obdulia Bernard [facility]; [facility] Work Phone: Comment on above: Pattern: Regular 05-16-2021 07:11-0400 Respiratory rate 18 /min Obdulia Bernard [facility] Com[facility]; [facility] Work Phone: Comment on above: Pattern: Unlabored 05-16-2021 07:11-0400 SaO2% (BldA) [Mass fraction] 94 % Obdulia Bernard [facility]; [facility] Work Phone: Comment on above: Room air 05-16-2021 07:11-0400 Systolic blood pressure 136 mm[Hg] Obdulia Bernard [facility]; [facility] Work Phone: Comment on above: Patient Position: Sitting; Cuff Location : Left Arm; Cuff Size: Standard 02-13-2021 08:26-0500 Body height 162.56 cm Stephanie Mata [facility]; [facility] Work Phone: Comment on above: virtual, reported by pt 02-13-2021 08:26-0500 Body mass index (BMI) [Ratio] 36.99 kg/m2 Stephanie Mata [facility]; [facility] Work Phone: Comment on above: virtual, reported by pt 02-13-2021 08:26-0500 Body surface area Derived from formula 2.02 m2 Stephanie Mata MICHAEL [facility]; [facility] Work Phone: Comment on above: virtual, reported by pt 02-13-2021 08:26-0500 Body temperature 98.5 [degF] Stephanie Mata MICHAEL [facility]; [facility] Work Phone: Comment on above: virtual, reported by pt 02-13-2021 08:26-0500 Body weight 97.75 kg Stephanie Mata MICHAEL [facility]; [facility] Work Phone: Comment on above: virtual, reported by pt 02-13-2021 08:26-0500 Diastolic blood pressure 74 mm[Hg] Stephanie Mata [employer] [facility]; [facility] Work Phone: Comment on above: Patient Position: Sitting; Cuff Location : Left Arm; Cuff Size: Standard virtual, reported by pt 02-13-2021 08:26-0500 Heart rate 83 /min Stephanie Mata LPN [facility] Internal Medicine; [facility] Work Phone: Comment on above: Pattern: Regular virtual, reported by pt 02-13-2021 08:26-0500 SaO2% (BldA) [Mass fraction] 96 % Stephanie Mata [employer] [facility]; [facility] Work Phone: Comment on above: Room air virtual, reported by pt 02-13-2021 08:26-0500 Systolic blood pressure 110 mm[Hg] Stephanie Adolfo MICHAEL [facility]; [facility] Work Phone: Comment on above: Patient Position: Sitting; Cuff Location : Left Arm; Cuff Size: Standard virtual, reported by pt 11-21-2020 10:20-0400 Body height 162.56 cm Anaya Orlando MA [facility]; [facility] Work Phone: 11-21-2020 10:20-0400 Body mass index (BMI) [Ratio] 40.68 kg/m2 Anaya Orlando MA [facility]; [facility] Work Phone: 11-21-2020 10:20-0400 Body surface area Derived from formula 2.1 m2 Anaya Orlando MA [facility]; [facility] Work Phone: 11-21-2020 10:20-0400 Body temperature 97.1 [degF] Anaya Orlando MA [facility]; [facility] Work Phone: Comment on above: Method: Temporal 11-21-2020 10:20-0400 Body weight 107.5 kg Anaya Orlando MA [facility]; [facility] Work Phone: 11-21-2020 10:20-0400 Diastolic blood pressure 84 mm[Hg] Anaya Orlando MA [facility]; [facility] Work Phone: Comment on above: Patient Position: Sitting; Cuff Location : Left Arm; Cuff Size: Standard 11-21-2020 10:20-0400 Heart rate 68 /min Anaya Orlando MA [facility]; [facility] Work Phone: Comment on above: Pattern: Regular 11-21-2020 10:20-0400 SaO2% (BldA) [Mass fraction] 94 % Anaya Orlando MA [facility]; [facility] Work Phone: Comment on above: Room air 11-21-2020 10:20-0400 Systolic blood pressure 123 mm[Hg] Anaya Orlando MA [facility]; [facility] Work Phone: Comment on above: Patient Position: Sitting; Cuff Location : Left Arm; Cuff Size: Standard 10-10-2020 10:22-0400 Body height 162.56 cm Stephanie Mata LPN [facility]; [facility] Work Phone: 10-10-2020 10:22-0400 Body mass index (BMI) [Ratio] 40.34 kg/m2 Stephanie Mata LPN [facility]; [facility] Work Phone: 10-10-2020 10:22-0400 Body surface area Derived from formula 2.09 m2 Stephanie Mata LPN [facility]; [facility] Work Phone: 10-10-2020 10:22-0400 Body temperature 97.1 [degF] Stephanie Mata LPN [facility]; [facility] Work Phone: Comment on above: Method: Temporal 10-10-2020 10:22-0400 Body weight 106.6 kg Stephanie Mata LPN [facility]; [facility] Work Phone: 10-10-2020 10:22-0400 Diastolic blood pressure 78 mm[Hg] Stephanie Mata LPN [facility]; [facility] Work Phone: Comment on above: Patient Position: Sitting; Cuff Location : Left Arm; Cuff Size: Standard 10-10-2020 10:22-0400 Heart rate 76 /min Stephanie Mata LPN [facility]; [facility] Work Phone: Comment on above: Pattern: Regular 10-10-2020 10:22-0400 Respiratory rate 16 /min Stephanie Mata LPN [facility]; [facility] Work Phone: Comment on above: Pattern: Unlabored 10-10-2020 10:22-0400 SaO2% (BldA) [Mass fraction] 96 % Stephanie Mata LPN [facility]; [facility] Work Phone: Comment on above: Room air 10-10-2020 10:22-0400 Systolic blood pressure 108 mm[Hg] Stehpanie Mata LPN [facility]; [facility] Work Phone: Comment on above: Patient Position: Sitting; Cuff Location : Left Arm; Cuff Size: Standard 09-13-2020 09:40-0400 Body height 162.56 cm Stephanie Mata LPN [facility]; [facility] Work Phone: 09-13-2020 09:40-0400 Body mass index (BMI) [Ratio] 40.34 kg/m2 Stephanie Mata [employer] [facility]; [facility] Work Phone: 09-13-2020 09:40-0400 Body surface area Derived from formula 2.09 m2 Stephanie Mata [employer] [facility]; [facility] Work Phone: 09-13-2020 09:40-0400 Body temperature 97.1 [degF] Stephanie Mata LPN [facility]; [facility] Work Phone: Comment on above: Method: Infrared 09-13-2020 09:40-0400 Body weight 106.6 kg Stephanie Mata LPN [facility]; [facility] Work Phone: 09-13-2020 09:40-0400 Diastolic blood pressure 80 mm[Hg] Stephanie Mata LPN [facility]; [facility] Work Phone: Comment on above: Patient Position: Sitting; Cuff Location : Left Arm; Cuff Size: Standard 09-13-2020 09:40-0400 Heart rate 76 /min Stephanie Mata LPN [facility]; [facility] Work Phone: Comment on above: Pattern: Regular 09-13-2020 09:40-0400 Respiratory rate 16 /min Stephanie Mata LPN [facility]; [facility] Work Phone: Comment on above: Pattern: Unlabored 09-13-2020 09:40-0400 SaO2% (BldA) [Mass fraction] 97 % Stephanie Mata LPN [facility]; [facility] Work Phone: Comment on above: Room air 09-13-2020 09:40-0400 Systolic blood pressure 122 mm[Hg] Stephanie Mata LPN [facility]; [facility] Work Phone: Comment on above: Patient Position: Sitting; Cuff Location : Left Arm; Cuff Size: Standard 08-22-2020 12:04-0400 Body height 162.56 cm Jocelynlisandro Hsu [facility]; [facility] Work Phone: 08-22-2020 12:04-0400 Body mass index (BMI) [Ratio] 40.68 kg/m2 [facility]; [facility] Work Phone: 08-22-2020 12:04-0400 Body surface area Derived from formula 2.1 m2 Jocelyn ManдмитрийK-M[employer] [facility]; [facility] Work Phone: 08-22-2020 12:04-0400 Body temperature 97.1 [degF] Jocelyn Hsu [facility]; [facility] Work Phone: Comment on above: Method: Thermal Scan 08-22-2020 12:04-0400 Body weight 107.5 kg Jocelyn Hsu [facility]; [facility] Work Phone: 08-22-2020 12:04-0400 Diastolic blood pressure 70 mm[Hg] Jocelyn Hsu [facility]; [facility] Work Phone: Comment on above: Patient Position: Sitting; Cuff Location : Left Arm; Cuff Size: Standard 08-22-2020 12:04-0400 Heart rate 70 /min Jocelyn Hsu [facility]; [facility] Work Phone: Comment on above: Pattern: Regular 08-22-2020 12:04-0400 Respiratory rate 16 /min Jocelyn Hsu [facility]; [facility] Work Phone: Comment on above: Pattern: Unlabored 08-22-2020 12:04-0400 SaO2% (BldA) [Mass fraction] 98 % Jocelyn Hsu [facility]; [facility] Work Phone: Comment on above: Room air 08-22-2020 12:04-0400 Systolic blood pressure 118 mm[Hg] Jocelyn Hsu [facility]; [facility] Work Phone: Comment on above: Patient Position: Sitting; Cuff Location : Left Arm; Cuff Size: Standard 06-08-2020 07:58-0400 Body height 162.56 cm [facility]; [facility] Work Phone: 06-08-2020 07:58-0400 Body mass index (BMI) [Ratio] 40.85 kg/m2 [facility]; [facility] Work Phone: 06-08-2020 07:58-0400 Body surface area Derived from formula 2.11 m2 [facility]; [facility] Work Phone: 06-08-2020 07:58-0400 Body weight 107.96 kg [facility]; [facility] Work Phone: 06-08-2020 07:58-0400 Diastolic blood pressure 85 mm[Hg] [facility]; [facility] Work Phone: Comment on above: Patient Position: Sitting; Cuff Location : Left Arm; Cuff Size: Standard 06-08-2020 07:58-0400 Heart rate 75 /min [facility]; [facility] Work Phone: Comment on above: Pattern: Regular 06-08-2020 07:58-0400 Systolic blood pressure 118 mm[Hg] [facility]; [facility] Work Phone: Comment on above: Patient Position: Sitting; Cuff Location : Left Arm; Cuff Size: Standard 05-11-2020 14:08-0500 BMI (Body Mass Index) 40.85 kg/m2 [facility]; [facility] Work Phone: 05-11-2020 14:08-0500 Body Temperature 97.1 [degF] [facility]; [facility] Work Phone: Comment on above: Method: Thermal Scan 05-11-2020 14:08-0500 Body weight 107.96 kg [facility] [facility]; [facility] Work Phone: 05-11-2020 14:08-0500 BP Diastolic 70 mm[Hg] [facility]; [facility] Work Phone: Comment on above: Patient Position: Sitting; Cuff Location : Left Arm; Cuff Size: Standard 05-11-2020 14:08-0500 BP Systolic 122 mm[Hg] [facility]; [facility] Work Phone: Comment on above: Patient Position: Sitting; Cuff Location : Left Arm; Cuff Size: Standard 05-11-2020 14:08-0500 BSA (Body Surface Area) 2.11 m2 [facility]; [facility] Work Phone: 05-11-2020 14:08-0500 Height 162.56 cm [facility]; [facility] Work Phone: 05-11-2020 14:08-0500 Pulse (Heart Rate) 88 /min Jannie Dany [facility] Com[facility]; [facility] Work Phone: Comment on above: Pattern: Regular 05-11-2020 14:08-0500 Pulse Oximetry 93 % Beryl Lakhwinder [facility]; [facility] Work Phone: Comment on above: Room air 05-11-2020 14:08-0500 Respiratory Rate 16 /min [facility]; [facility] Work Phone: Comment on above: Pattern: Unlabored 05-11-2020 14:08-0500 SaO2% (BldA) [Mass fraction] 93 % [facility]; [facility] Work Phone: Comment on above: Room air 02-08-2020 08:02-0500 BMI (Body Mass Index) 39.69 kg/m2 Stephaniecristiano Marcumman [facility]; [facility] Work Phone: Comment on above: reported by pt 02-08-2020 08:02-0500 Body Temperature 97.5 [degF] Stephanie Mata [facility]; [facility] Work Phone: Comment on above: reported by pt 02-08-2020 08:02-0500 Body weight 104.89 kg Stephanie Mata [facility]; [facility] Work Phone: Comment on above: reported by pt 02-08-2020 08:02-0500 BP Diastolic 73 mm[Hg] Stephanie Mata [facility]; [facility] Work Phone: Comment on above: Patient Position: Sitting; Cuff Location : Left Arm; Cuff Size: Standard reported by pt 02-08-2020 08:02-0500 BP Systolic 115 mm[Hg] Stephanie Mata [facility]; [facility] Work Phone: Comment on above: Patient Position: Sitting; Cuff Location : Left Arm; Cuff Size: Standard reported by pt 02-08-2020 08:02-0500 BSA (Body Surface Area) 2.08 m2 Stephanie Mata [facility]; [facility] Work Phone: Comment on above: reported by pt 02-08-2020 08:02-0500 Height 162.56 cm Stephanie Adolfo [facility]; [facility] Work Phone: Comment on above: reported by pt 02-08-2020 08:02-0500 Pulse (Heart Rate) 71 /min Stephanie Mata [facility] Internal Medicine; [facility] Work Phone: Comment on above: Pattern: Regular reported by pt 11-02-2019 13:46-0400 BMI (Body Mass Index) 40.51 kg/m2 [facility] Internal Medicine Work Phone: 11-02-2019 13:46-0400 Body Temperature 97.1 [degF] [facility] Internal Medicine Work Phone: Comment on above: Method: Thermal Scan 11-02-2019 13:46-0400 Body weight 107.06 kg [facility] Internal Medicine Work Phone: 11-02-2019 13:46-0400 BP Diastolic 68 mm[Hg] [facility] Internal Medicine Work Phone: Comment on above: Patient Position: Sitting; Cuff Location : Left Arm; Cuff Size: Standard 11-02-2019 13:46-0400 BP Systolic 120 mm[Hg] [facility] Internal Medicine Work Phone: Comment on above: Patient Position: Sitting; Cuff Location : Left Arm; Cuff Size: Standard 11-02-2019 13:46-0400 BSA (Body Surface Area) 2.1 m2 [facility] Internal Medicine Work Phone: 11-02-2019 13:46-0400 Height 162.56 cm Jannie Saenz LPN [facility] Work Phone: 11-02-2019 13:46-0400 Pulse (Heart Rate) 94 /min Jannie Saenz LPN Com[facility] Medicine Work Phone: Comment on above: Pattern: Regular 11-02-2019 13:46-0400 Pulse Oximetry 95 % Beryl Keane [facility] Work Phone: Comment on above: Room air 11-02-2019 13:46-0400 Respiratory Rate 16 /min Jannie Saenz LPN [facility] Work Phone: Comment on above: Pattern: Unlabored 11-02-2019 13:46-0400 SaO2% (BldA) [Mass fraction] 95 % Jannie Saenz LPN [facility]; [facility] Work Phone: Comment on above: Room air 08-03-2019 13:20-0400 BMI (Body Mass Index) 41.71 kg/m2 Gisselle Hernandezrb [employer]EE[employer] [facility] Work Phone: 08-03-2019 13:20-0400 Body Temperature 97.4 [degF] Gisselle Davidrb [employer]EE[employer] [facility] Work Phone: 08-03-2019 13:20-0400 Body weight 110.22 kg Gisselle Davidrb [employer]EE[employer] TR[employer]MER [facility] Work Phone: 08-03-2019 13:20-0400 BP Diastolic 78 mm[Hg] Gisselle Slarb [employer]EE[employer] [facility] Work Phone: Comment on above: Patient Position: Sitting; Cuff Location : Left Arm; Cuff Size: Standard 08-03-2019 13:20-0400 BP Systolic 136 mm[Hg] Gisselle Slarb [employer]EE[employer] [facility] Work Phone: Comment on above: Patient Position: Sitting; Cuff Location : Left Arm; Cuff Size: Standard 08-03-2019 13:20-0400 BSA (Body Surface Area) 2.12 m2 Gisselle Slarb [employer]EE[employer] [facility] Work Phone: 08-03-2019 13:20-0400 Height 162.56 cm Gisselle Garcia LPN [facility] Work Phone: 08-03-2019 13:20-0400 Pulse (Heart Rate) 93 /min Gisselle Garcia LPN [facility] Work Phone: Comment on above: Pattern: Regular 08-03-2019 13:20-0400 Pulse Oximetry 94 % Beryl Keane [facility] Work Phone: Comment on above: Room air 08-03-2019 13:20-0400 Respiratory Rate 17 /min Gisselle Garcia LPN [facility] Work Phone: Comment on above: Pattern: Unlabored 08-03-2019 13:20-0400 SaO2% (BldA) [Mass fraction] 94 % Gisselle Garcia [employer]EE[employer] [facility]; [facility] Work Phone: Comment on above: Room air 06-22-2019 08:25-0400 BMI (Body Mass Index) 42.29 kg/m2 Beryl Keane DO Work Phone: [facility] Work Phone: Comment on above: readings at home are 129/64, 142/78, 128 /76 06-22-2019 08:25-0400 Body Temperature 96.6 [degF] Beryl Keane DO Work Phone: [facility] Work Phone: Comment on above: Method: Temporal readings at home are 129/64, 142/78, 128/76 06-22-2019 08:25-0400 Body weight 111.76 kg Beryl Keane DO Work Phone: [facility] Work Phone: Comment on above: readings at home are 129/64, 142/78, 128 /76 06-22-2019 08:25-0400 BP Diastolic 98 mm[Hg] Beryl Keane DO Work Phone: [facility] Work Phone: Comment on above: Patient Position: Sitting; Cuff Location : Left Arm; Cuff Size: Standard readings at home are 129/64, 142/78, 128/76 04-22-2020 08:25-0400 BP Systolic 162 mm[Hg] Beryl Keane DO Work Phone: [facility] Work Phone: Comment on above: Patient Position: Sitting; Cuff Location : Left Arm; Cuff Size: Standard readings at home are 129/64, 142/78, 128/76 06-22-2019 08:25-0400 BSA (Body Surface Area) 2.14 m2 Beryl Keane DO Work Phone: [facility] Work Phone: Comment on above: readings at home are 129/64, 142/78, 128 /76 06-22-2019 08:25-0400 Height 162.56 cm Beryl Keane DO Work Phone: [facility] Work Phone: Comment on above: readings at home are 129/64, 142/78, 128 /76 06-22-2019 08:25-0400 Pulse (Heart Rate) 102 /min Beryl Keane DO Work Phone: [facility] Work Phone: Comment on above: Pattern: Regular readings at home are 129/64, 142/78, 128/76 06-22-2019 08:25-0400 Pulse Oximetry 94 % Beryl Keane [facility] Work Phone: Comment on above: Room air readings at home are 129/64, 142/78, 128/76 06-22-2019 08:25-0400 Respiratory Rate 20 /min Beryl Keane DO Work Phone: [facility] Work Phone: Comment on above: Pattern: Unlabored readings at home are 129/64, 142/78, 128/76 06-22-2019 08:25-0400 SaO2% (BldA) [Mass fraction] 94 % Beryl Keane DO Work Phone: [facility]; [facility] Work Phone: Comment on above: Room air readings at home are 129/64, 142/78, 128/76 06-01-2019 07:49-0400 BMI (Body Mass Index) 41.77 kg/m2 Gisselle Garcia BEEF TR[employer]MER [facility] Internal Medicine Work Phone: Comment on above: pt took own vitals 06-01-2019 07:49-0400 Body Temperature 98.3 [degF] Gisselle Slalulú RODRIGUEZ [facility] Internal Medicine Work Phone: Comment on above: pt took own vitals 06-01-2019 07:49-0400 Body weight 110.39 kg Gisselle Slalulú RODRIGUEZ [facility] Internal Medicine Work Phone: Comment on above: pt took own vitals 06-01-2019 07:49-0400 BP Diastolic 99 mm[Hg] Gisselle Slalulú RODRIGUEZ [facility] Internal Medicine Work Phone: Comment on above: Patient Position: Sitting; Cuff Location : Left Arm; Cuff Size: Standard pt took own vitals 06-01-2019 07:49-0400 BP Systolic 139 mm[Hg] Gisselle Slalulú RODRIGUEZ [facility] Internal Medicine Work Phone: Comment on above: Patient Position: Sitting; Cuff Location : Left Arm; Cuff Size: Standard pt took own vitals 06-01-2019 07:49-0400 BSA (Body Surface Area) 2.13 m2 Gisselle Slalulú RODRIGUEZ [facility] Internal Medicine Work Phone: Comment on above: pt took own vitals 06-01-2019 07:49-0400 Height 162.56 cm Gisselle Slalulú RODRIGUEZ [facility] Internal Medicine Work Phone: Comment on above: pt took own vitals 06-01-2019 07:49-0400 Pulse (Heart Rate) 77 /min Gisselle Garcia [facility]EE[facility] [facility] Internal Medicine Work Phone: Comment on above: Pattern: Regular pt took own vitals 05-04-2019 08:34-0500 BMI (Body Mass Index) 41.88 kg/m2 Stephanie Adolfo BEE[employer] TRIMMER [facility] Internal Medicine Work Phone: Comment on above: Rechecked BP: 148/74 05-04-2019 08:34-0500 Body Temperature 97.2 [degF] tSephanie Mata [facility] Internal Medicine Work Phone: Comment on above: Rechecked BP: 148/74 05-04-2019 08:34-0500 Body weight 110.68 kg Stephanie Mata LPN [facility] Internal Medicine Work Phone: Comment on above: Rechecked BP: 148/74 05-04-2019 08:34-0500 BP Diastolic 86 mm[Hg] Stephanie Mata MICHAEL [facility] Internal Medicine Work Phone: Comment on above: Patient Position: Sitting; Cuff Location : Left Arm; Cuff Size: Standard Rechecked BP: 148/74 05-04-2019 08:34-0500 BP Systolic 150 mm[Hg] Stephanie Mata MICHAEL [facility] Internal Medicine Work Phone: Comment on above: Patient Position: Sitting; Cuff Location : Left Arm; Cuff Size: Standard Rechecked BP: 148/74 05-04-2019 08:34-0500 BSA (Body Surface Area) 2.13 m2 Stephanie Mata MICHAEL [facility] Internal Medicine Work Phone: Comment on above: Rechecked BP: 148/74 05-04-2019 08:34-0500 Height 162.56 cm Stephanie Mata MICHAEL [facility] Internal Medicine Work Phone: Comment on above: Rechecked BP: 148/74 05-04-2019 08:34-0500 Pulse (Heart Rate) 82 /min Stephanie Mata MICHAEL [facility] Internal Medicine Work Phone: Comment on above: Pattern: Regular Rechecked BP: 148/74 05-04-2019 08:34-0500 Pulse Oximetry 95 % Beryl Keane [facility] Internal Medicine Work Phone: Comment on above: Room air Rechecked BP: 148/74 05-04-2019 08:34-0500 Respiratory Rate 16 /min Stephanie Mata MICHAEL [facility] Internal Medicine Work Phone: Comment on above: Pattern: Unlabored Rechecked BP: 148/74 05-04-2019 08:34-0500 SaO2% (BldA) [Mass fraction] 95 % Stephanie Adolfo LPN [facility]; [facility] Work Phone: Comment on above: Room air Rechecked BP: 148/74 04-04-2019 13:22-0500 BMI (Body Mass Index) 41.77 kg/m2 Gisselle Garcia LPN [facility] Work Phone: Comment on above: hearing wnldoes eye exams with [facility] 04-04-2019 13:22-0500 Body Temperature 97.1 [degF] Gisselle Garcia LPN [facility] Work Phone: Comment on above: Method: Temporal hearing wnldoes eye exams with [facility] 04-04-2019 13:22-0500 Body weight 110.39 kg Gisselle Garcia LPN [facility] Work Phone: Comment on above: hearing wnldoes eye exams with [facility] 04-04-2019 13:22-0500 BP Diastolic 98 mm[Hg] Gisselle Garcia LPN [facility] Work Phone: Comment on above: Patient Position: Sitting; Cuff Location : Left Arm; Cuff Size: Standard hearing wnldoes eye exams with [facility] 04-04-2019 13:22-0500 BP Systolic 168 mm[Hg] Gisselle Garcia LPN [facility] Work Phone: Comment on above: Patient Position: Sitting; Cuff Location : Left Arm; Cuff Size: Standard hearing wnldoes eye exams with [facility] 04-04-2019 13:22-0500 BSA (Body Surface Area) 2.13 m2 Gisselle Garcia LPN [facility] Work Phone: Comment on above: hearing wnldoes eye exams with [facility] 04-04-2019 13:22-0500 Height 162.56 cm Gisselle Garcia LPN [facility] Work Phone: Comment on above: hearing wnldoes eye exams with [facility] 04-04-2019 13:22-0500 Pulse (Heart Rate) 74 /min Gisselle Garcia LPN [facility] Work Phone: Comment on above: Pattern: Regular hearing wnldoes eye exams with [facility] 04-04-2019 13:22-0500 Pulse Oximetry 96 % Beryl Keane [facility] Work Phone: Comment on above: Room air hearing wnldoes eye exams with [facility] 04-04-2019 13:22-0500 Respiratory Rate 18 /min Gisselle Davidrb BEEF TRIMMER [facility] Work Phone: Comment on above: Pattern: Unlabored hearing wnldoes eye exams with [facility] 04-04-2019 13:22-0500 SaO2% (BldA) [Mass fraction] 96 % Gisselle Slarb BEEF TRIMMER [facility]; [facility] Work Phone: Comment on above: Room air hearing wnldoes eye exams with [facility] 09-15-2016 14:31-0400 BMI (Body Mass Index) 39.72 kg/m2 Gisselle Slarb BEEF TRIMMER [facility] Work Phone: 09-15-2016 14:31-0400 Body Temperature 98.2 [degF] Gisselle Slarb BEEF TRIMMER [facility] Work Phone: 09-15-2016 14:31-0400 Body weight 104.95 kg Gisselle Slarb BEEF TRIMMER [facility] Work Phone: 09-15-2016 14:31-0400 BP Diastolic 78 mm[Hg] Gisselle Slarb BEE[employer] TRIMMER [facility] Work Phone: Comment on above: Patient Position: Sitting; Cuff Location : Left Arm; Cuff Size: Standard 09-15-2016 14:31-0400 BP Systolic 126 mm[Hg] Gisselle Slarb BEEF TRIMMER [facility] Work Phone: Comment on above: Patient Position: Sitting; Cuff Location : Left Arm; Cuff Size: Standard 09-15-2016 14:31-0400 BSA (Body Surface Area) 2.08 m2 Gisselle Slarb BEEF TRIMMER [facility] Work Phone: 09-15-2016 14:31-0400 Height 162.56 cm Gisselle Slarb BEEF TRIMMER [facility] Work Phone: 09-15-2016 14:31-0400 Pulse (Heart Rate) 109 /min Gisselle Slarb BEE[employer] TRIMMER [facility] Work Phone: Comment on above: Pattern: Regular 09-15-2016 14:31-0400 Pulse Oximetry 95 % Beryl Keane [facility] Work Phone: Comment on above: Room air 09-15-2016 14:31-0400 Respiratory Rate 16 /min Gisselle Slarb BEEF TRIMMER [facility] Work Phone: Comment on above: Pattern: Unlabored 09-15-2016 14:31-0400 SaO2% (BldA) [Mass fraction] 95 % Gisselle Slarb BEEF TRIMMER [facility]; [facility] Work Phone: Comment on above: Room air 09-09-2016 08:15-0400 BMI (Body Mass Index) 39.65 kg/m2 Gisselle Slarb BEEF TRIMMER [facility] Work Phone: 09-09-2016 08:15-0400 Body Temperature 97.9 [degF] Gisselle Slarb BEEF TRIMMER [facility] Work Phone: 09-09-2016 08:15-0400 Body weight 104.78 kg Gisselle Slarb BEEF TRIMMER [facility] Work Phone: 09-09-2016 08:15-0400 BP Diastolic 84 mm[Hg] Gisselle Slarb BEEF TRIMMER [facility] Work Phone: Comment on above: Patient Position: Sitting; Cuff Location : Left Arm; Cuff Size: Standard 09-09-2016 08:15-0400 BP Systolic 128 mm[Hg] Gisselle Slarb BEEF TRIMMER [facility] Work Phone: Comment on above: Patient Position: Sitting; Cuff Location : Left Arm; Cuff Size: Standard 09-09-2016 08:15-0400 BSA (Body Surface Area) 2.08 m2 Gisselle Slarb BEEF TRIMMER [facility] Work Phone: 09-09-2016 08:15-0400 Height 162.56 cm Gisselle Slarb BEEF TRIMMER [facility] Work Phone: 09-09-2016 08:15-0400 Pulse (Heart Rate) 112 /min Gisselle Garcia LPN [facility] Work Phone: Comment on above: Pattern: Regular 09-09-2016 08:15-0400 Pulse Oximetry 95 % Beryl Keane [facility] Work Phone: Comment on above: Room air 09-09-2016 08:15-0400 Respiratory Rate 17 /min Gisselle Garcia LPN [facility] Work Phone: Comment on above: Pattern: Unlabored 09-09-2016 08:15-0400 SaO2% (BldA) [Mass fraction] 95 % Gisselle Garcia LPN [facility]; [facility] Work Phone: Comment on above: Room air Encounters Encounter Date Encounter Type Care Provider Facility Start: 08-22-2024 ambulatory Beryldemetrio Martinezon Facilit y:[facility] Start: 08-13-2024 ambulatory Beryl Lakhwinder Facilit y:[facility] Start: 08-09-2024 ambulatory Beryl Lakhwinder Facilit y:[facility] Start: 07-08-2024 Encounter for other preprocedural examination Snehal Lozano [facility] Start: 07-05-2024 End: 07-05-2024 ambulatory Beryl Keane Facility:[facility] Start: 06-21-2024 End: 06-21-2024 ambulatory Beryldemetrio Martinezon Facility:[facility] Start: 06-14-2024 End: 06-14-2024 ambulatory Snehal Lozano Facility:[facility] Start: 06-09-2024 End: 06-09-2024 ambulatory Beryldemetrio Keane Facility:[facility] Start: 05-30-2024 Non-patient / Non-visit [facility] Start: 05-30-2024 End: 05-30-[address] Beryl Keane DO Work Phone: [facility] Work Phone: Start: 05-30-2024 End: 05-30-[address] Beryl Keane DO -Cardiovascular Services Work Phone: Start: 05-30-2024 End: 05-30-2024 ambulatory Beryl Keane Facility:[facility] Start: 04-25-2024 End: 04-25-[address] Beryl Keane DO Work Phone: [facility] Work Phone: Start: 04-25-2024 End: 04-25-[address] Snehal Lozano DO -Laboratory, Specimen Work Phone: Start: 04-25-2024 End: 04-25-[address] Snehal Lozano DO -[facility] Work Phone: Start: 04-25-2024 End: 04-25-2024 ambulatory Beryl Keane Facility:[facility] Start: 04-25-2024 End: 04-25-2024 ambulatory Beryl Keane Facility:[facility] Start: 04-12-2024 End: 04-12-[address] Larry Hays MD -[facility] Start: 04-12-2024 End: 04-12-2024 ambulatory Beryl Keane Facility:[facility] Start: 04-08-2024 End: 04-08-2024 ambulatory Beryl Keane Facility:[facility] Start: 04-08-2024 End: 04-08-[address] Beryl Keane DO -Physical Therapy Work Phone: Start: 02-29-2024 End: 02-29-[address] Beryl Keane DO -Ultrasound, [facility] Work Phone: Start: 02-29-2024 End: 02-29-2024 ambulatory Beryl Keane Facility:[facility] Start: 10-02-2023 End: 10-02-2023 ambulatory Beryl Keane Facility:[facility] Start: 10-02-2023 End: 10-02-2023 ambulatory Breyl Keane Facility:[facility] Start: 01-01-2023 End: 01-01-2023 Office outpatient visit 25 minutes Beryl Keane DO Work Phone: [facility] Start: 01-01-2023 Review Beryl Martinezo n DO Work Phone: [facility] Start: 10-29-2022 End: 10-29-[address] Beryl Keane Work Phone: [facility] Work Phone: Start: 10-29-2022 End: 10-29-[address] Beryl Keane Work Phone: [facility]-Cat Scan, [facility] Work Phone: Start: 10-22-2022 End: 10-22-2022 Office outpatient visit 15 minutes Beryldemetrio Keane DO Work Phone: [facility] Internal Medicine Start: 10-01-2022 End: 10-01-[address] Beryl Keane Work Phone: [facility] Work Phone: Start: 10-01-2022 End: 10-01-[address] Beryl Keane Work Phone: [facility], [facility] Work Phone: Start: 09-25-2022 End: 09-25-[address] Beryl Keane Work Phone: [facility] Start: 09-25-2022 End: 09-25-2022 Office outpatient visit 25 minutes Beryl Keane DO Work Phone: [facility] Start: 09-25-2022 Review Beryl Magana n DO Work Phone: [facility] Start: 06-19-2022 ambulatory Beryl Keane DO Comp re[facility] Internal Med Start: 06-19-2022 End: 06-19-[address] Beryl Keane Work Phone: [facility] Start: 06-19-2022 End: 06-19-2022 Office outpatient visit 25 minutes Beryl Lakhwinder DO Work Phone: [facility] Start: 04-02-2022 End: 08-01-2022 Phone Encounter Beryl Lakhwinder DO Work Phone: [facility] Start: 04-02-2022 Review Beryl Fearo n DO Work Phone: [facility] Start: 03-19-2022 End: 03-19-2022 Office outpatient visit 15 minutes Beryl Lakhwinder DO Work Phone: [facility] Start: 03-19-2022 Review Beryl Fearo n DO Work Phone: [facility] Start: 12-11-2021 End: 12-11-2021 Office outpatient visit 25 minutes Beryl Lakhwinder DO Work Phone: [facility] Start: 09-05-2021 End: 09-05-2021 Office outpatient visit 25 minutes Beryl Lakhwinder DO Work Phone: [facility] Start: 09-05-2021 Review Beryl Fearo n DO Work Phone: [facility] Start: 07-10-2021 End: 07-10-2021 Office outpatient visit 10 minutes Beryl Lakhwinder DO Work Phone: [facility] Start: 06-17-2021 End: 06-17-2021 Patient encounter procedure Beryl Lakhwinder DO Work Phone: [facility]; [facility] Work Phone: Start: 06-17-2021 End: 06-17-2021 Periodic preventive med est patient 65yrs& older Beryl Lakhwinder DO Work Phone: [facility] Start: 05-16-2021 End: 05-16-2021 Office outpatient visit 25 minutes Beryl Lakhwinder DO Work Phone: [facility] Start: 02-13-2021 End: 02-13-2021 Office outpatient visit 25 minutes Beryl Lakhwinder DO Work Phone: [facility] Start: 11-21-2020 End: 11-21-2020 Office outpatient visit 25 minutes Beryl Lakhwinder DO Work Phone: [facility] Start: 10-10-2020 End: 10-10-2020 Office outpatient visit 25 minutes Beryl Lakhwinder DO Work Phone: [facility] Start: 09-25-2020 End: 09-26-2020 Office outpatient visit 5 minutes Beryl Lakhwinder DO Work Phone: [facility] Start: 09-13-2020 End: 09-13-2020 Office outpatient visit 25 minutes Beryl Lakhwinder DO Work Phone: [facility] Start: 08-22-2020 End: 08-22-2020 Office outpatient visit 25 minutes Beryl Lakhwinder DO Work Phone: [facility] Start: 08-22-2020 Review Beryl Fearo n DO Work Phone: [facility] Start: 08-01-2020 End: 08-01-2020 Annotation/Addendum Beryl Lakhwinder DO Work Phone: [facility] Start: 06-08-2020 End: 06-08-2020 Office outpatient visit 25 minutes Beryl Lakhwinder DO Work Phone: [facility] Start: 06-08-2020 End: 06-08-2020 Patient encounter procedure Beryl Lakhwinder DO Work Phone: [facility] Start: 05-11-2020 End: 05-11-2020 Office outpatient visit 25 minutes Beryl Lakhwinder [facility] Start: 05-11-2020 Review Beryl Lakhwinder [facility] Start: 02-08-2020 End: 02-08-2020 Office outpatient visit 25 minutes Beryl Lakhwinder [facility] Start: 02-08-2020 Review Beryl Lakhwinder [facility] Start: 11-04-2019 End: 11-04-2019 Office outpatient visit 5 minutes Beryl Lakhwinder [facility] Start: 11-02-2019 End: 11-02-2019 Office outpatient visit 15 minutes Beryl Keane [facility] Start: 08-03-2019 End: 08-03-2019 Office outpatient visit 25 minutes Beryl Lakhwinder [facility] Start: 06-22-2019 End: 06-22-2019 Office outpatient visit 25 minutes Beryl Keane [facility] Start: 06-01-2019 End: 06-01-2019 Office outpatient visit 25 minutes Beryl Lakhwinder [facility] Start: 05-04-2019 End: 05-04-2019 Office outpatient visit 15 minutes Beryl Keane [facility] Start: 04-04-2019 End: 04-04-2019 Office outpatient visit 25 minutes Beryl Keane [facility] Start: 04-04-2019 End: 04-04-2019 Patient encounter procedure Beryl Keane DO Work Phone: [facility] Start: 09-15-2016 End: 09-15-2016 Office outpatient visit 15 minutes Beryl Lakhwinder [facility] Start: 09-09-2016 End: 09-09-2016 Office outpatient new 30 minutes Beryl Lakhwinder [facility] Patient encounter procedure Beryl Keane DO Work Phone: [facility] Work Phone: Patient encounter procedure Jannie Saenz [facility]; [facility] Work Phone: End: 08-22-2020 Patient encounter procedure Jair Mcleod [facility] Work Phone: Patient encounter procedure Stephanie Mata [facility] Work Phone: Patient encounter procedure Stephanie Mata [facility] Work Phone: Patient encounter procedure Obdulia Bernard [facility]; [facility] Work Phone: Patient encounter procedure Mick Das [facility]; [facility] Work Phone: Patient encounter procedure Mick Das [facility]; [facility] Work Phone: Patient encounter procedure Mick Das [facility]; [facility] Work Phone: Patient encounter procedure Mick Das [facility] Work Phone: Patient encounter procedure Ashwin Shah [facility] Work Phone: Patient encounter procedure Gisselle Garcia [employer] [facility] Work Phone: Patient encounter procedure Ashwin Shah [facility]; [facility] Work Phone: Procedures Date Procedure Procedure Detail Performing Clinician Start: 04-12-2024 X-ray of chest, PA and lateral views Dr. Beryl Keane DO Work Phone: Start: 02-29-[address] Beryl Keane DO Work Phone: Start: 10-29-2022 Computed tomography of abdomen and pelvis with contrast Dr. Beryl Keane Work Phone: Start: 10-29-2022 End: 10-29-2022 Abdomen/Pelvis WITH Contrast Procedure Note: See Note; NOTES: [facility] [address] [place] [address] Abdomen/Pelvis WITH Contrast MR#: [id number] Acct: [id number] Name: CAMILLE BERNABE Rep #: [id number] : 1950 F 72 From: Preeti ott MD PCP: Dr. Beryl Keane, Status: REG CLI Study: Abdomen/Pelvis WITH Contrast Date of Exam: Exam# [id number] Ordering Dr: Beryl Keane DO HISTORY: right upper quadrant pain. TECHNIQUE: Helically acquired images were obtained of the abdomen and pelvis after the intravenous administration of 100 mL Isovue 300. Oral contrast also administered. A radiation dose optimization technique was used for this scan. 456 images. COMPARISON: US 10/01/2022. FINDINGS: LOWER CHEST: Lung bases clear. BOWEL: Bowel including appendix nondilated. Colonic diverticulosis without focal inflammatory change observed. PERITONEUM: No significant ascites. LIVER: 18 cm in length. Fatty infiltration. 7 mm cyst in the left lobe. GALLBLADDER/BILIARY TREE: Gallbladder present. SPLEEN/PANCREAS/ADRENAL GLANDS: Homogeneous and nonenlarged. KIDNEYS: 7 x 8.5 cm cyst in the right kidney. 6 mm fat-containing lesion in the left kidney. No hydronephrosis. VESSELS: No abdominal aortic aneurysm. Mild atherosclerosis. PELVIC ORGANS: 4.8 cm and 5.2 cm round uterine masses. ABDOMINAL WALL: Tiny fat containing umbilical hernia. BONES: Vacuum disc phenomenon, degenerative endplate change, and mild anterolisthesis of L4-5. CT/Abdomen/Pelvis WITH Contrast IMPRESSION: Hepatic steatosis with hepatomegaly. Small cyst in the left hepatic lobe. 8.5 cm right renal cyst. 6 mm left renal angiomyolipoma. Colonic diverticulosis without acute diverticulitis. Leiomyomatous uterus. Electronically Signed: Preeti Villasenor MD at 9:15 EDT , CC: Dr. Beryl eKane DO Commissioning Agent: Signed Beryl Keane DO Work Phone: Start: 10-01-[address] Beryl Keane Work Phone: Start: 10-01-2022 End: 10-02-2022 Abdomen Limited Procedure Note: See Note; NOTES: [facility] [address] [place] [address] Abdomen Limited MR#: [id number] Acct: [id number] Name: CAMILLE BERNABE Rep #: [id number] : 1950 F 72 From: Mario coyle MD PCP: Dr. Beryl Keane DO Status: REG CLI Study: Abdomen Limited Date of Exam: 10/01/22 Exam# [id number] Ordering Dr: Beryl Keane DO STUDY: ABDOMINAL ULTRASOUND - RIGHT UPPER QUADRANT REASON FOR VISIT: Female, 72 years old RUQ pain TECHNIQUE: Ultrasound evaluation of the right upper quadrant was performed with real-time and static hernandez-scale imaging. TECHNICAL QUALITY: Adequate. COMPARISON: None. FINDINGS: Liver: The liver is enlarged and measures 22.3 cm. There is increased echogenicity consistent with fatty infiltration. The bile ducts are within normal limits. There is hepatic color flow. The direction of portal flow is hepatopetal. There is no demonstrated mass lesion. Focal fatty sparing is seen in the region of the gallbladder fossa. Gallbladder: Normal distended gallbladder. The gallbladder wall measures 2.2 mm. There is a negative sonographic Orlando''s sign. There is no pericholecystic fluid. There are no gallstones. Common Bile Duct (C.B.D.): The common bile duct measures 3.0 mm. Pancreas: Normal size of the head, body and tail of the pancreas. There is normal echogenicity of the pancreas. There is no demonstrated pancreatic mass or cyst. Right Kidney: Normal size of the right kidney. The right kidney measures 14.2 cm x 7.1 cm x 4 cm. Normal renal cortex. The right cortex measures 1.7 cm. There is a 7.9 cm x 8.3 cm x 6.4 cm right renal cyst. There is no right hydronephrosis. US/Abdomen Limited IMPRESSION: Hepatomegaly and fatty infiltration of the liver with focal fatty sparing in the region of the gallbladder fossa. 7.9 cm x 8.3 cm x 6.4 cm right renal cyst. Electronically Signed: Mario Randolph MD at 8:48 EDT , CC: Dr. Beryl Keane DO Commissioning Agent: Signed Beryl Keane DO Work Phone: Start: 09-25-2022 End: 09-29-2022 Abdomen Single View Procedure Note: See Note; NOTES: [facility] [address] [place] [address] Abdomen Single View MR#: [id number] Acct: [id number] Name: CAMILLE BERNABE Rep #: [id number] : 1950 F 72 From: Jimenez Baird PCP: Dr. Beryl Keane DO Status: DEP AMB Study: Abdomen Single View Date of Exam: 09/25/22 Exam# [id number] Ordering Dr: Beryl Keane DO INDICATION: RUQ PAIN EXAMINATION/TECHNIQUE: X-RAY - XR Abdomen 1 View COMPARISON: None FINDINGS: BOWEL GAS PATTERN: Non-obstructive. No bowel or stomach distention. FREE AIR: Not assessed on a single supine view. ORGANOMEGALY: Not seen. CALCIFICATIONS: No abnormal calcifications observed. LOWER CHEST: No acute pathology. BONES AND SOFT TISSUES: Marginal osteophyte formation throughout the lumbar spine. No fracture destructive bony process. RAD/Abdomen Single View IMPRESSION: 1. Non-obstructive bowel gas pattern. 2. Lumbar spondylosis and marginal osteophyte formation. Electronically Signed: Jimenez Briceno MD at 20:21 EDT , CC: Dr. Beryl Keane DO Commissioning Agent: Signed Beryl Keane DO Work Phone: Start: 09-25-2022 [address] radiography of abdomen Dr. Beryl Keane Work Phone: Start: 06-19-2022 End: 06-19-2022 Chest PA and Lateral Procedure Note: See Note; NOTES: [facility] [address] [place] [address] Chest PA and Lateral MR#: [id number] Acct: [id number] Name: CAMILLE BERNABE Rep #: [id number] : 1950 F 72 From: Denver Strong DO PCP: Dr. Beryl Keane DO Status: DEP AMB Study: Chest PA and Lateral Date of Exam: 06/19/22 Exam# [id number] Ordering Dr: Beryl Keane DO STUDY: X-RAY CHEST REASON FOR EXAM: Female, 72 years old. Abnormal lung sounds. TECHNIQUE: PA and lateral views of the chest. COMPARISON: September 24, 2017. FINDINGS: The lungs are clear and expanded. No new infiltrate or mass There is no demonstrated pleural abnormality. Normal size heart. Persistent prominence of the right hilum. Normal mediastinum. Normal visualized pulmonary arteries. Normal visualized aortic arch and descending thoracic aorta. Normal visualized thoracic spine. Normal visualized ribs, clavicles, and shoulders. There is no demonstrated abnormality of the visualized soft tissue structures of the upper abdomen. RAD/Chest PA and Lateral IMPRESSION: No acute abnormality or interval change. Electronically Signed: Denver Strong DO at 17:17 EDT Reading Location ID and State: [address] [place] [address] Tel [phone], Service support , CC: Dr. Beryl Keane DO Commissioning Agent: Signed Beryl Keane DO Work Phone: Start: 06-19-2022 Plain chest X-ray Dr. Beryl Keane Work Phone: Start: 04-02-2022 End: 04-02-2022 HIP, UNI W/ Pelvis 2-3 Views Procedure Note: See Note; NOTES: [facility] [address] [place] [address] HIP, UNI W/ Pelvis 2-3 Views MR#: [id number] Acct: [id number] Name: CAMILLE BERNABE Rep #: [id number] : 1950 F 71 From: Baudilio Tristan DO PCP: Dr. Beryl Keane DO Status: DEP AMB Study: HIP, UNI W/ Pelvis 2-3 Views Date of Exam: 03/24 Exam# [id number] Ordering Dr: Beryl Keane DO INDICATION: having left hip pain -- left hip EXAMINATION/TECHNIQUE: X-RAY - LEFT XR Hip Unilateral with Pelvis when performed; 3 Views COMPARISON: None. FINDINGS: SOFT TISSUES: No soft tissue swelling or gas. No radiopaque foreign body. BONES/JOINTS: No acute fracture or subluxation.. Normal alignment. Preservation of the joint space.. No sclerotic or destructive changes observed. RAD/HIP, UNI W/ Pelvis 2-3 Views IMPRESSION: Negative. Electronically Signed: Baudilio Tristan DO at 22:10 EST Reading Location ID and State: [facility] / [place] Tel [phone], Service support , CC: Dr. Beryl Keane DO Commissioning Agent: Signed Beryl Keane DO Work Phone: Start: 06-20-2021 End: 06-27-2021 Dexa Bone Density Study Comments: See Note; NOTES: [facility] [address] [place] [address] Dexa Bone Density Study MR#: [id number] Acct: [id number] Name: CAMILLE BERNABE Rep #: [id number] : 1950 F 71 From: Mario coyle MD PCP: Dr. Beryl Keane DO Status: REG CLI Study: Dexa Bone Density Study Date of Exam: 06/20/21 Exam# [id number] Ordering Dr: Beryl Keane DO STUDY: DUAL ENERGY X-RAY ABSORPTIOMETRY / DXA REASON FOR EXAM: Female, 71 years old. [id number] TECHNIQUE: Bone Mineral Density (BMD) measurements of lumbar spine and bilateral hips were obtained. COMPARISON: Comparison is made with prior study dated 04/21/2019. FINDINGS: Lumbar Spine (L1-L4): g/cm2 (1.033) / T-score (-0.6) / Z-score (1.6) Findings are suggestive of normal bone density with a low fracture risk. Left Femur Total: g/cm2 (1.029) / T-score (0.7) / Z-score (2.2) Left Femoral Neck: g/cm2 (0.735) / T-score (-1.0) / Z-score (0.8) Right Femur Total: g/cm2 (0.999) / T-score (0.5) / Z-score (2.0) Right Femoral Neck: g/cm2 (0.692) / T-score (-1.4) / Z-score (0.4) The T-Scores on the most recent prior examination were: Lumbar Spine (L1-L4): There has been improvement of bone density since the previous examination. Left Femur Total: which represents an improvement of 6.3%. Right Femur Total: which represents an improvement of 2.8%. BD/Dexa Bone Density Study IMPRESSION: The patient is considered osteopenic as outlined below according to World Rony Organization (WHO) criteria with a low fracture risk. There has been improvement of bone density since the previous examination. Reference Information: The T-score is the number of standard deviations above or below the standard which is normal for young adults at their peak bone mineral density. The World Health Organization (WHO) interprets the T-scores as follows: Above -1 Normal bone density Between -1 and -2.5 Osteopenia Equal to / or below -2.5 Osteoporosis As a practical clinical guideline, osteopenia may be graded as follows: Mild -1 through -1.5 Moderate -1.6 through -2.0 Severe -2.1 through -2.4 The Z-score is the number of standard deviations above or below age-matched controls. A Z-score of less than -1.5 would be considered abnormal. References: 1. NIH Osteoporosis and Related Bone Diseases www osteo.org 2. International Society for Clinical Densitometry www iscd.org 3. National Osteoporosis Foundation www nof.org Electronically Signed: Mario Randolph MD at 15:30 EDT , CC: Dr. Beryl Keane DO Commissioning Agent: Signed Beryl Keane DO Work Phone: Start: 05-16-2021 End: 05-16-2021 Cerv Spine 2 or 3 Views Comments: See Note; NOTES: [facility] [address] [place] [address] Cerv Spine 2 or 3 Views MR#: [id number] Acct: [id number] Name: CAMILLE BERNABE Rep #: [id number] : 1950 F 70 From: Justin Carlin DO PCP: Dr. Beryl Keane DO Status: DEP AMB Study: Cerv Spine 2 or 3 Views Date of Exam: 05/16/21 Exam# [id number] Ordering Dr: Beryl Keane DO INDICATION: RADICULOPATHY EXAMINATION/TECHNIQUE: X-RAY - XR Spine Cervical 4 or 5 Views COMPARISON: None. FINDINGS: VERTEBRAE: Preserved vertebral body height. No fracture. 0.4 cm of grade 1 anterolisthesis of C3 on C4. Preservation of the normal cervical lordosis. Multilevel facet arthropathy most prominent at the C2-C4 levels. DISCS: Multilevel degenerative disc disease with anterior osteophyte formation most prominent at C5-C6 and C6-C7. Associated mild disc height loss at these levels. NECK SOFT TISSUES: No prevertebral soft tissue widening. LUNG APICES: Clear. RAD/Cerv Spine 2 or 3 Views IMPRESSION: Degenerative changes. No acute findings. Electronically Signed: Justin Carlin, at 13:03 EDT , CC: Dr. Beryl Keane DO Commissioning Agent: Signed Beryl Keane DO Work Phone: Start: 03-08-2021 End: 03-08-2021 Cardiology Visit Report Comments: See Note; NOTES: [facility] [address] [place] [address] OFFICE VISIT Date of Service: 03/08/21 MR#: [id number] Acct: [id number] Name: CAMILLE BERNABE Rep #: [id number] : 1950 Provider: Dr. Nestor begum MD Age/Sex: 70/F [place] [facility] [place] Signed HPI HPI History of Present Illness Details: This is a 70-year-old white female who presents today for outpatient cardiovascular follow- up of her history of hypertension. Overall since her last visit of 11-04-2019 she states she is doing well. The patient denies symptoms considered classic for angina pectoris, CHF / pulmonary edema (with respect to orthopnea / PND), ongoing palpitations, or near syncope / syncope. The patient denies ongoing peripheral pitting edema. She states she does monitor her blood pressures at home. Overall she believes her blood pressure trends have been under good control. She does note that in early January 2021 she experience the COVID-19 virus. She states during that time if anything her blood pressures were on the lower side as opposed to the higher side. She has undergone previous noninvasive cardiovascular studies which are noted below. She has not required any additional outpatient or inpatient cardiovascular studies. Intake Vital Signs 03/08/21 14:18 Height 5 ft 3 in Weight: 229 lb BP 140/86 H Blood Pressure Location Lt brachial Position Sitting Respiration 20 H Pulse 82 Pulse Source Monitor Pulse Oximetry (%) 93 Intake Visit Reasons: 1 Y FU Allergies latex Allergy (Intermediate, Verified 11/04/19 11:10) Rash Medications amlodipine 5 mg tablet 5 mg PO DAILY 07/07/19 [History Confirmed 03/08/21] hydrochlorothiazide 25 mg tablet 25 mg PO DAILY 07/07/19 [History Confirmed 03/08/21] lisinopril 20 mg tablet 20 mg PO BID tab 07/07/19 [History Confirmed 03/08/21] Betaine Hydrochloride 1 tab PO TID 07/14/19 [History Confirmed 11/04/19] Boswella complex 1 tab PO TID 07/14/19 [History Confirmed 11/04/19] Zinc Liver Chelate 2 tab PO TID 07/14/19 [History Confirmed 11/04/19] aspirin 81 mg tablet,delayed release 81 mg PO DAILY #1 tab 07/14/19 [Rx Confirmed 03/08/21] calcium lactate 100 mg calcium tablet 200 mg PO TID tab 07/14/19 [History Confirmed 11/04/19] catalyn 1 tab PO TID 07/14/19 [History Confirmed 11/04/19] cataplex a-c 1 tab PO TID 07/14/19 [History Confirmed 11/04/19] chelaCO 1 tab PO TID 07/14/19 [History Confirmed 11/04/19] magnesium L-lactate 84 mg tablet,extended release 84 mg PO TID 07/14/19 [History Confirmed 11/04/19] natures thyroid 0.5 g PO BID 07/14/19 [History Confirmed 11/04/19] eco thyro 37 1 tab PO TID 11/04/19 [History] PFSH Medical History Back problem Chest pain Essential hypertension HTN (hypertension) Hypothyroidism Obesity Thoracic back pain Vitamin deficiency Surgical History History of removal of cyst Family History Mother Anemia Arthritis Breast cancer CVA (cerebral vascular accident) Father Myocardial infarction Heart disease Grandmother Liver disease Son Anxiety Social History (Updated 11/04/19 @ 12:02 by Helena Aparicio PA, PA) Smoking Status: Never smoker alcohol intake: never substance use type: does not use caffeine: No ROS Const Const: Positive for fatigue and weakness; Negative for headache(s), frequent falls, night sweats, daytime sleepiness or excessive sweating Eyes Eyes: Negative for blind spots, loss of peripheral vision, transient loss of vision, blurry vision or double vision ENT ENT: Negative for headache(s), dizziness, Nosebleed/epistaxis, balance problems, lip swelling or tongue swelling Cardio Chest Pain: No Palpitations: No Edema: None Muscle aches with walking: None Resp Respiratory: Negative for SOB with activity, SOB at rest, SOB orthopnea SOB lying down, Cough or paroxysmal nocturnal dyspnea GI GI: Negative nausea, vomiting, heartburn, bright, red blood in stools or black,tarry stools : Negative for hematuria Musc Musc: Negative for muscle aches/ myalgia, muscle weakness, joint pain or balance problems Skin Skin: Negative non-healing lesions, rash or unusual bruising Neuro Neuro: Positive for weakness; Negative for dizziness, lightheadedness, orthostatic symptoms, frequent falls, headache(s), blurry vision, double vision or lack of coordination Pineda Hematologic/Lymphatic: Negative for easy bleeding or easy bruising Endo Endo: Positive for fatigue; Negative for cold intolerance, heat intolerance, excessive sweating, increased thirst/drinking or hair loss Psych Psych: Negative for anxiety or depression Allergy Allergy/Immunology: Negative for throat swelling, Negative for tongue swelling, Negative for hives, Negative for rash and Negative for lip swelling Cardiology Exam Const Appearance: cooperative, healthy appearing, comfortable, no acute distress and well developed Nutritional Appearance: obese Orientation: alert, awake and oriented x3 Head Head: normal to inspection, normocephalic and atraumatic Ears: hearing grossly normal bilaterally Nose: external nose normal Face and Sinus: face symmetric Eyes Eyelids: eyelids normal Conjunctivae: conjunctivae normal Pupils: PERRL EOM: EOM intact bilaterally Neck Neck: normal visual inspection and full ROM Carotids: normal carotid upstroke Chest Chest inspection: normal inspection of the chest, symmetric chest movement and normal respiratory effort Auscultation: Bilateral: Clear to Auscultation Cardio Palpation: normal PMI Rate: regular rate Rhythm: regular rhythm Heart sounds: S1 normal and S2 normal GI GI: normal to inspection, soft, bowel sounds present and obese Neuro General: patient alert, patient awake, patient oriented x3 and moves all extremities Skin Skin: no rashes or lesions noted Extremities Pulses: Normal: Right Radial Pulse and Left Radial Pulse Lower Extremity Edema: None: Bilateral Psych Psychological: normal affect Supplemental Info Supplemental Information Supplemental Information Echocardiogram 08/02/2019: Left ventricular systolic function is normal. The estimated ejection fraction is 65 %. The left atrium is mildly enlarged. The right atrium is mildly enlarged. Trivial mitral valve insufficiency. Trivial tricuspid valve insufficiency. Trivial pulmonic valve insufficiency. Unable to estimate RV systolic pressure/pulmonary artery pressure due to technically difficult study. There is evidence of diastolic dysfunction. Stress echocardiogram: 09-25-2017 Interpretation Summary The study was technically difficult. Contrast injection was performed. The estimated ejection fraction is 65 %. Normal, adequate, treadmill echocardiogram. Negative for ischemia by EKG and echocardiographic criteria. No anginal symptoms noted. Rare PACs noted. Appropriate blood pressure hypertensive blood pressure response to exercise. Poor exercise capacity for age. Decreased sensitivity due to poor echo windows requiring Definity agent. Final LVEF of 70%. Reason for test termination not documented. No complications. Stress Test Report Date: 08-02-2019 Procedure: Pharmacologic stress nuclear imaging study Indications: Chest pain Consent: Per the patient Procedure: The patient underwent pharmacologic (Regadenoson) evaluation with a peak heart rate of 103 beats per minute (67 %predicted maximal heart rate) and a peak blood pressure of 140/78 mmHg. The baseline ECG demonstrated normal sinus rhythm. The peak pharmacologic ECG demonstrated no obvious ECG changes. [There were no cardiac dysrhythmias pretest, during pharmacologic infusion, or recovery]. [There was no complaint of chest discomfort during pharmacologic infusion or recovery]. The examination was discontinued secondary to completion of protocol. Impression: 1. Pharmacologic (Regadenoson) evaluation 2. Peak pharmacologic ECG with no obvious ECG changes. 3. [There were no cardiac dysrhythmias pretest, during pharmacologic infusion, or recovery]. 4. Nuclear images pending Myocardial perfusion imaging study: Technique: The patient was injected with 14.0 millicuries of technetium 99m Cardiolite and subsequently rest SPECT Cardiolite nuclear imaging was obtained in the horizontal long, vertical long, and short axis views. The patient underwent pharmacologic (Regadenoson) evaluation with a peak heart rate of 103 beats per minute (67 % percent predicted maximal heart rate) and a peak blood pressure of 140/78 mmHg. The patient was injected with 44.0 millicuries of technetium 99m Cardiolite and subsequently stress SPECT Cardiolite nuclear imaging was obtained in the horizontal long, vertical long, and short axis views. A gated Cardiolite study at peak stress was obtained. Interpretation: Rest and stress SPECT Cardiolite nuclear imaging status post realignment, normalization, and attenuation correction demonstrate at rest a small area of subtle diminished tracer uptake near the distal anterior segments which status post stress appears to improve/normalize. There are similar type findings on the resting and stress polar map images. [There is end systolic thickening and brightening]. [The gated Cardiolite study demonstrates myocardial thickening and inward wall motion]. The reported LVEF is 68 %. Impression: 1. Rest and stress myocardial nuclear imaging demonstrate myocardial perfusion changes appearing compatible with the effects of shifting soft tissue attenuation/artifact being more prominent at rest as opposed to stress with no myocardial perfusion changes considered diagnostic for associated stress-induced myocardial ischemia. 2. The gated Cardiolite study reports an LVEF of 68 %. Labs: LDL Cholesterol 73 mg/dL (0-130) HDL Cholesterol 71 mg/dL (40-) Triglycerides 143 mg/dL (-199) VLDL Cholesterol 29 mg/dL (5-40) Diagnostics: Electrocardiogram Echocardiogram Stress Echocardiogram Stress Test NM Stress Test Chest X-Ray Venous Doppler Study Pulmonary: No Data to Display Assessment and Plan Assessment and Plan (1) Essential hypertension: Status: Chronic Plan - Dr. Nestor Do MD: At the present time she appears to be doing well overall. She was asked to continue her current medications. She was asked to continue to monitor her blood pressures at home, record them, and take them with her during her future PCP visit for further review. Otherwise at the present time it was not felt she required additional cardiovascular diagnostic studies/intervention. From a cardiovascular standpoint she will have future outpatient cardiovascular follow-up on a as needed basis. Plan Details Additional Comments: Thank you for allowing me to participate in the care of your patient. Please don't hesitate to call if any issues arise. This note was generated using a voice recognition system and there may be incorrect words, spelling or punctuation that were not noted when reviewing the office note prior to saving. Follow Up: 03/08/21 (PRN ) COVID (Procedure Consent) Procedure Criteria Procedure Criteria: Yes Elective The surgeon/proceduralist and patient have discussed in detail the risk of exposure to and/or potential harm posed by the COVID-19 virus with having a surgery/procedure at this time versus the risk of??? delaying the surgery/procedure. It is not possible to know either the risk of delaying the surgery or procedure or chance of getting an infection with perfect accuracy, but a joint decision was made between the patient and the surgeon/proceduralist ???to proceed at this time with the scheduled surgery/procedure as indicated on the consent form. Coding Level of Care Code Off vis,est,level 3 Diagnoses Essential hypertension I10 Coding Level of Care Code Off vis,est,level 3 Diagnoses Essential hypertension I10 03/08/21 1441 <Electronically signed by Nestor Do MD> Date Nestor Do MD Cosigner Signature: Date (if applicable) CC: Dr. Beryl Keane, DO Beryl Keane DO Work Phone: Start: 09-13-2020 End: 09-13-2020 Venous Duplex US, Unilateral Comments: See Note; NOTES: [facility] [address] [place] [address] Venous Duplex US, Unilateral 09/13/20 1539 MR#: [id number] Acct: [id number] Name: CAMILLE BERNABE Rep #: [id number] : 1950 70 From: Jigar Lawrence MD Attending Dr: Dr. Beryl Keane DO Status: R EG CLI Ordering Dr: Beryl Keane DO Date: 09/13/20 Location: [facility] Sex: F C Admitted: Reason For Study: pain RIGHT GSV is normal. CFV is compressible, spontaneous, phasic, competent and demonstrates normal augmentation. FV is compressible, spontaneous, phasic, competent and demonstrates normal augmentation. POP V is compressible, spontaneous, phasic, competent and demonstrates normal augmentation. T/P Trunk is compressible. PTV is compressible. RT PerV is compressible. Procedure This is a venous duplex using B-mode, color flow and spectral Doppler. Exam performed in department. The exam was abbreviated due to the COVID 19 protocol. The exam was diagnostic. A preliminary report was called and/or faxed to Dr. Keane. VL/Venous Duplex US, Unilateral Interpretation Summary Deep veins of the right lower extremity are patent and compressible segmentally. There is no evidence of right lower extremity deep vein thrombosis. Valvular competence appears intact within the proximal deep venous system on the right . The right great saphenous vein appears patent and compressible segmentally. _ Ordering Physician: Beryl Keane Performed By: Rolly Liz RVT 09/13/201953 Date Jigar Lawrence MD CC: Dr. Beryl Keane DO Date Dictated: 09/13/20 1539 Date Transcribed: 09/13/201953 Commissioning Agent: Radha Keane DO Work Phone: Start: 11-04-2019 End: 11-04-2019 Cardiology Visit Report Comments: See Note; NOTES: [facility] [address] [place] [address]. [address] [place] [address] OFFICE VISIT Date of Service: 11/04/19 MR#: [id number] Acct: [id number] Name: FLORECITADENILSONCAMILLE L Rep #: [id number] : 1950 Provider: PA Helena Deleon Age/Sex: 69/F [place] [facility] [place]: Signed HPI HPI History of Present Illness Details: This is a 69-year-old female that recently established with us for concerns over back and neck pain. She does have a history of hypertension. From a cardiac standpoint, patient is doing well. She does not have any chest discomfort/heaviness/tightne ss. Her exercise tolerance is stable for her age. She does not have any worsening symptoms of shortness of breath. She does not have any orthopnea. She denies PND. She does not have any symptoms of congestive heart failure. She does not have any palpitations that she is aware of. She does not have any lightheadedness or dizziness. She does not have any near- syncope or syncope. She does not have any lower extremity edema. She does not have any symptoms of claudication. Intake Vital Signs 11/04/19 Height 5 ft 3 in 11/04/19 Weight: 236 lb 11/04/19 BP 103/64 11/04/19 Blood Pressure Location Lt brachial 11/04/19 Position Sitting 11/04/19 Respiration 18 11/04/19 Pulse 76 11/04/19 Pulse Source Monitor 11/04/19 BMI 43.7 Intake Visit Reasons: 3 M [employer] Required: No Accompanied by: None Is patient in pain?: No Allergies latex Allergy (Intermediate, Verified 11/04/19 11:10) Rash Medications amlodipine 5 mg tablet 5 mg PO DAILY 07/07/19 [History Confirmed 11/04/19] hydrochlorothiazide 25 mg tablet 25 mg PO DAILY 07/07/19 [History Confirmed 11/04/19] lisinopril 20 mg tablet 20 mg PO BID tab 07/07/19 [History Confirmed 11/04/19] Betaine Hydrochloride 1 tab PO TID 07/14/19 [History Confirmed 11/04/19] Boswella complex 1 tab PO TID 07/14/19 [History Confirmed 11/04/19] Zinc Liver Chelate 2 tab PO TID 07/14/19 [History Confirmed 11/04/19] aspirin 81 mg tablet,delayed release 81 mg PO DAILY #1 tab 07/14/19 [Rx Confirmed 11/04/19] calcium lactate 100 mg calcium tablet 200 mg PO TID tab 07/14/19 [History Confirmed 11/04/19] catalyn 1 tab PO TID 07/14/19 [History Confirmed 11/04/19] cataplex a-c 1 tab PO TID 07/14/19 [History Confirmed 11/04/19] chelaCO 1 tab PO TID 07/14/19 [History Confirmed 11/04/19] magnesium L-lactate 84 mg tablet,extended release 84 mg PO TID 07/14/19 [History Confirmed 11/04/19] natures thyroid 0.5 g PO BID 07/14/19 [History Confirmed 11/04/19] eco thyro 37 1 tab PO TID 11/04/19 [History] Ejection fraction %: 65 to 70 PFSH Medical History Hypothyroidism (Chronic) Essential hypertension (Chronic) Thoracic back pain (Chronic) Obesity (Chronic) Chest pain (Acute) Vitamin deficiency (Chronic) Back problem (Inactive) HTN (hypertension) (Inactive) Surgical History History of removal of cyst (Resolved) Family History Mother Anemia Arthritis Breast cancer CVA (cerebral vascular accident) Father Myocardial infarction Heart disease Grandmother Liver disease Son Anxiety Social History (Updated 11/04/19 @ 12:02 by Helena DENNY, PA) Smoking Status: Never smoker alcohol intake: never substance use type: does not use caffeine: No ROS Const Const: Negative for fatigue, weakness, headache(s), frequent falls, difficulty sleeping or excessive sweating Eyes Eyes: Negative for loss of peripheral vision, transient loss of vision, blurry vision, double vision or tunnel vision ENT ENT: Negative for headache(s), dizziness, Nosebleed/epistaxis or balance problems Cardio Chest Pain: No Palpitations: No Edema: None Muscle aches with walking: None Resp Respiratory: Negative for SOB with activity, SOB at rest, SOB orthopnea SOB lying down, Cough or paroxysmal nocturnal dyspnea GI GI: Negative nausea, vomiting, heartburn or black,tarry stools : Negative for hematuria Musc Musc: Positive for joint pain; negative for muscle aches/ myalgia, muscle weakness or balance problems Skin Skin: Negative non-healing lesions, rash or unusual bruising Neuro Neuro: Negative for dizziness, lightheadedness, near syncope, syncope, frequent falls, headache(s), weakness, blurry vision, double vision or lack of coordination Pineda Hematologic/Lymphatic: Negative for easy bleeding or easy bruising Endo Endo: Negative for fatigue, excessive sweating or increased thirst/drinking Psych Psych: Negative for anxiety or depression Allergy Allergy/Immunology: Negative for hives, Negative for rash Cardiology Exam Const Appearance: cooperative, healthy appearing, comfortable, no acute distress, well developed and well groomed Nutritional Appearance: obese Orientation: alert, awake and oriented x3 Head Head: normal to inspection Ears: hearing grossly normal bilaterally Nose: external nose normal Face and Sinus: face symmetric Eyes Eyelids: eyelids normal Conjunctivae: conjunctivae normal Pupils: PERRL EOM: EOM intact bilaterally Neck Neck: normal visual inspection Carotids: normal carotid upstroke Chest Chest inspection: normal inspection of the chest, symmetric chest movement and normal respiratory effort Auscultation: Bilateral: Clear to Auscultation Cardio Palpation: normal PMI Rate: regular rate Rhythm: regular rhythm Heart sounds: S1 normal and S2 normal GI GI: obese Neuro General: alert, awake, oriented x3 and moves all extremities Skin Skin: no rashes or lesions noted Extremities Pulses: Normal: Right Radial Pulse, Left Radial Pulse Lower Extremity Edema: Trace: Bilateral Psych Psychological: normal affect Assessment Plan Problems 1. Essential hypertension I10 Plan Blood pressure is well controlled on current medications, we do not recommend any changes at this time. Plan Detail Follow Up 1 Year (PFM) Coding Level of Care Code Off vis,est,level 3 Diagnoses Essential hypertension I10 Coding Level of Care Code Off vis,est,level 3 Diagnoses Essential hypertension I10 Supplemental Info Supplemental Information Echocardiogram 08/2019: Left ventricular systolic function is normal. The estimated ejection fraction is 65 %. The left atrium is mildly enlarged. The right atrium is mildly enlarged. Trivial mitral valve insufficiency. Trivial tricuspid valve insufficiency. Trivial pulmonic valve insufficiency. Unable to estimate RV systolic pressure/pulmonary artery pressure due to technically difficult study. There is evidence of diastolic dysfunction. Stress test in August 2019 was negative for ischemia. Diagnostics Electrocardiogram 07/14/19 Echocardiogram 08/02/19 Stress Test Nuclear Medicine 08/02/19 Stress Test 08/02/19 11/04/19 1202 <Electronically signed by Helena Pacheco> Date Helena Astudillo Signature: Date (if applicable) CC: DO Beryl Barnett Start: 08-02-2019 End: 08-02-2019 Stress Report Comments: See Note; NOTES: [facility] [address] [place] [address] MR#: [id number] Acct: [id number] Name: CAMILLE BERNABE Rep #: [id number] : 1950 69 From: Nestor Do MD Primary Care: Dr. Beryl Keane DO Status: REG CLI Referring Dr: Nestor Do MD Sex: F C Stress Test Report Date: 08-02-2019 Procedure: Pharmacologic stress nuclear imaging study Indications: Chest pain Consent: Per the patient Procedure: The patient underwent pharmacologic (Regadenoson) evaluation with a peak heart rate of 103 beats per minute (67 %predicted maximal heart rate) and a peak blood pressure of 140/78 mmHg. The baseline ECG demonstrated normal sinus rhythm. The peak pharmacologic ECG demonstrated no obvious ECG changes. [There were no cardiac dysrhythmias pretest, during pharmacologic infusion, or recovery]. [There was no complaint of chest discomfort during pharmacologic infusion or recovery]. The examination was discontinued secondary to completion of protocol. Impression: 1. Pharmacologic (Regadenoson) evaluation 2. Peak pharmacologic ECG with no obvious ECG changes. 3. [There were no cardiac dysrhythmias pretest, during pharmacologic infusion, or recovery]. 4. Nuclear images pending Myocardial perfusion imaging study: Technique: The patient was injected with 14.0 millicuries of technetium 99m Cardiolite and subsequently rest SPECT Cardiolite nuclear imaging was obtained in the horizontal long, vertical long, and short axis views. The patient underwent pharmacologic (Regadenoson) evaluation with a peak heart rate of 103 beats per minute (67 % percent predicted maximal heart rate) and a peak blood pressure of 140/78 mmHg. The patient was injected with 44.0 millicuries of technetium 99m Cardiolite and subsequently stress SPECT Cardiolite nuclear imaging was obtained in the horizontal long, vertical long, and short axis views. A gated Cardiolite study at peak stress was obtained. Interpretation: Rest and stress SPECT Cardiolite nuclear imaging status post realignment, normalization, and attenuation correction demonstrate at rest a small area of subtle diminished tracer uptake near the distal anterior segments which status post stress appears to improve/normalize. There are similar type findings on the resting and stress polar map images. [There is end systolic thickening and brightening]. [The gated Cardiolite study demonstrates myocardial thickening and inward wall motion]. The reported LVEF is 68 %. Impression: 1. Rest and stress myocardial nuclear imaging demonstrate myocardial perfusion changes appearing compatible with the effects of shifting soft tissue attenuation/artifact being more prominent at rest as opposed to stress with no myocardial perfusion changes considered diagnostic for associated stress-induced myocardial ischemia. 2. The gated Cardiolite study reports an LVEF of 68 %. This note was generated with [employer] software. It may contain incorrect words, spelling, and punctuation that were not noted in checking the note before signing. 08/02/19949 <Electronically signed by Nestor Do MD> Date Nestor Do MD CC: Dr. Beryl Keane, DO; Dr. Nestor Do MD Date Dictated: 08/02/19932 Date Transcribed: 08/02/19932 Commissioning Agent: PM Signed Beryl Keane Start: 08-02-2019 End: 08-02-2019 Echo Complete Comments: See Note; NOTES: [facility] [address] [place] [address] Echo Complete 08/02/19903 MR#: [id number] Acct: [id number] Name: CAMILLE BERNABE Rep #: [id number] : 1950 69 From: Nestor Do MD Attending Dr: Dr. Nestor Do MD Status: RE G CLI Ordering Dr: Nestor Do MD Date: 08/02/19 Location: [facility] Sex: F C Admitted: Reason For Study: CHEST PAIN Procedure This was a 2D Doppler, Color Flow transthoracic echocardiogram. The study was technically difficult. PT could not tolerate anything touching her skin. Exam performed in department. Left Ventricle Normal LV size. Left ventricular systolic function is normal. The estimated ejection fraction is 65 %. There is evidence of diastolic dysfunction. No regional wall motion abnormalities noted. Right Ventricle Normal RV size. Normal systolic function. Atria The left atrium is mildly enlarged. The right atrium is mildly enlarged. No doppler evidence for ASD. Mitral Valve There is no mitral annular calcification. Normal mitral valve. Trivial mitral valve insufficiency. Tricuspid Valve Normal tricuspid valve. Trivial tricuspid valve insufficiency. Unable to estimate RV systolic pressure/pulmonary artery pressure due to technically difficult study. Aortic Valve Trisinus/trileaflet aortic valve. Normal aortic valve. Pulmonic Valve The pulmonic valve is not well visualized. Trivial pulmonic valve insufficiency. Great Vessels Normal sized aortic root. Pericardium/Pleural No pericardial effusion. MMode/2D Measurements Calculations LVIDd: 5.2 cm IVSd: 0.85 cm Ao root diam: 3.3 cm LVIDs: 3.3 cm LVPWd: 0.87 cm RVDd: 3.3 cm FS: 37.1 % LAV(MOD-bp): 83.7 ml LA A4 area: 24.3 cm2 LA dimension(2D): 3.8 cm LAV(MOD-bp) Indexed: 39.8 ml/m2 LAV(MOD-sp2): 78.5 ml LAV(MOD-sp4): 78.4 ml RA A4 area: 21.1 cm2 Time Measurements MV dec time: 0.23 sec Doppler Measurements Calculations MV E max liz: 78.8 cm/sec Lat Peak E' Liz: 9.8 cm/sec Med Peak E' Liz: 5.1 cm/sec MV A max liz: 93.8 cm/sec E/E' lat: 8.1 E/E' med: 15.6 MV E/A: 0.84 Ao V2 max: 187.6 cm/sec LV V1 max: 134.7 cm/sec PA V2 max: 115.9 cm/sec Ao max P.1 mmHg LV V1 max P.3 mmHg Ao V2 mean: 131.4 cm/sec LV V1 mean P.1 mmHg Ao mean P.7 mmHg LV V1 mean: 97.4 cm/sec Ao V2 VTI: 37.5 cm LV V1 VTI: 28.0 cm Interpretation Summary The study was technically difficult. Left ventricular systolic function is normal. The estimated ejection fraction is 65 %. The left atrium is mildly enlarged. The right atrium is mildly enlarged. Trivial mitral valve insufficiency. Trivial tricuspid valve insufficiency. Trivial pulmonic valve insufficiency. Unable to estimate RV systolic pressure/pulmonary artery pressure due to technically difficult study. There is evidence of diastolic dysfunction. _ Ordering Physician: Nestor Do Referring Physician: Beryl Keane Performed By: Nidia Dickey, RDCS, RVT 08/02/19 163 Date Nestor Do MD CC: Dr. Beryl Keane DO; Dr. Nestor Do MD Date Dictated: 08/02/19903 Date Transcribed: 08/02/191637 Commissioning Agent: Signed Nestor Do Work Phone: Start: 07-28-2019 End: 08-03-2019 Renal Artery Duplex Ultrasound Comments: See Note; NOTES: [facility] [address] [place] [address]. [place] [address] Renal Artery Duplex Ultrasound 07/28/19 0858 MR#: [id number] Acct: [id number] Name: CAMILLE BERNABE Rep #: [id number] : 1950 69 From: Miguel Angel Alicea MD Attending Dr: Dr. Nestor Do MD Status: RE G [facility] Ordering Dr: Nestor Do MD Date: 07/28/19 Location: [facility] Sex: F C Admitted: Reason For Study: HTN Right Renal Artery Left Renal Artery Right renal artery ostium 71.6/20.5 Left renal artery ostium 73.4/15.0 RSV/EDV. PSV/EDV. Right renal artery proximal Left renal artery proximal PSV/EDV 99.0/15.0 PSV/EDV. 57.0/18.6 . Right renal artery mid 95.3/22.3 Left renal artery mid 84.4/22.3 PSV/EDV. PSV/EDV . Right renal artery distal 111.8/35.1 Left renal artery distal 145.6/31.6 PSV/EDV. PSV/EDV. Right Renal Parenchyma Left Renal Parenchyma Upper Pole Medula 23.7/8.4 PSV/EDV. Left upper pole medulla 48.6/14.8 Right upper pole medulla EDR .35 . PSV/EDV . Right upper pole medulla R.I. .65 . Left upper pole medulla EDR .3 . Upper Azeem Cortx 16.6/4.5 PSV/EDV. Left upper pole medulla R.I. .7 . Right upper pole cortex EDR .27 . UP Cortex 37.6/11.1 PSV/EDV. Right upper pole cortex R.I. .73 . Left upper pole cortex EDR .3 . Right lower Pole medulla 13.8/6.2 Left upper pole cortex R.I. .7 . PSV/EDV . Left lower Pole medulla 33.1/14.8 Right lower pole medulla EDR .44 . PSV/EDV . Right lower pole medulla R.I. .56 . Left lower pole medulla EDR .45 . Lower Pole Cortex 14.9/5.6 PSV/EDV. Left lower pole medulla R.I. .55 . Right lower pole cortex EDR .38 . Lower Pole Cortx 17.5/7.5 PSV/EDV. Right lower pole cortex R.I. .62 . Left lower pole cortex EDR .43 . Right Renal Hilar Left lower pole cortex R.I. .57 . Right Hilar avg 34.0/11.1 PSV/EDV. Left Renal Hilar Right hilar acceleration time 20.0 LT Hilar avg 76.7/22.3 PSV/EDV . m/sec. Left hilar acceleration time 40.0 Right Renal Dimensions m/sec. Right kidney size 14.95 cm . Left Renal Dimensions Right cortical dimension .93 cm . Left kidney size 12.62 cm . Hypoechoic area right kidney Left cortical dimension 1.34 cm . measuring 4.24 x 5.58 cm. Area is nonvascular. Aorta Proximal abdominal aorta 1.54 x 1.5 cm . Proximal abdominal aorta peak systolic velocity is 120.9 cm/sec . Distal abdominal aorta 1.51 x 1.48 cm . Distal abdominal aorta peak systolic velocity is 95.3 cm/sec . Normal renal veins bilat. Interpretation Summary There is no evidence of hemodynamically significant renal artery stenosis on either side. _ Ordering Physician: Nestor Do Performed By: Rolly Liz RVT 08/03/19 08 Date Miguel Angel Alicea MD CC: Dr. Beryl eKane DO; Dr. Nestor Do MD Date Dictated: 07/28/1958 Date Transcribed: 08/03/19821 Commissioning Agent: Signed Nestor Do Work Phone: Start: 07-14-2019 End: 07-14-2019 12 Lead EKG performed by [facility] Comments: See Note; NOTES: [facility] [address] [place] [id number] 12 Lead EKG performed by [facility] 07/14/19 1059 MR#: [id number] Acct: [id number] Name: CAMILLE BERNABE Rep #: [id number] : 1950 69 From: Nestor Do MD Attending Dr: Dr. Nestor Do MD Status: DE P AMB Ordering Dr: Nestor Do MD Date: 07/14/19 [place] [facility] [place] F C Admitted: [facility]/12 Lead EKG performed by [facility] ECG Report Interpretation Si nus Rhythm Electronically signed on 07/14/2019 at 13:11 by Nestor Do Software Version [id number] 07/14/19 1331 Date Nestor Do MD CC: Dr. Beryl Keane, Date Dictated: 07/14/191058 Date Transcribed: 07/14/191058 Commissioning Agent: RONALDO Signed Nestor Do Work Phone: Start: 07-14-2019 End: 07-14-2019 [email or web address] Comments: See Note; NOTES: [facility] [address] [place] [address] OFFICE VISIT Date of Service: 07/14/19 MR#: [id number] Acct: [id number] Name: CAMILLE BERNABE Rep #: [id number] : 1950 Provider: Dr. Nestor begum MD Age/Sex: 69/F Location: [facility] Status: Signed HPI HPI History of Present Illness Details: This is a 69-year-old white female who was referred for outpatient cardiovascular consultation based upon concerns of left neck, left shoulder, and left upper extremity discomfort superimposed upon concerns of hypertension. She states that she has been having episodes that wax and wane with respect to discomfort over her left neck, left shoulder, and left upper extremity area. She notes these episodes are somewhat random. She cannot necessarily correlate them with any particular activity. She does not recall anything that makes them worse or better. She does not believe she has simultaneous shortness of breath/dyspnea or ongoing nausea, emesis, or diaphoresis. She does not recall any ongoing palpitations or rapid rates nor has she had any obvious evidence of near syncope or syncope. She recalls being hospitalized approximately 2 years ago. At that time she notes she underwent evaluation, which she believes was for hypertension, which included a stress echocardiogram which was considered negative. The results are noted below. She does not believe she has had any further evaluation of her symptoms or her hypertension. She had an ECG today. She was noted to be in sinus rhythm. She had no acute ECG changes. There are no other cardiovascular studies available for review at this time. She states her medications have been adjusted and attempt to bring her blood pressure under better control. She notes that based upon the blood pressure readings she brings with her today that recently her blood pressures have actually come down and started to appear within the normal range. Intake Vital Signs 07/14/19 Height 5 ft 3 in 07/14/19 Weight: 247 lb 3 oz 07/14/19 BMI 43.7 07/14/19 BP 128/74 H 07/14/19 Blood Pressure Location Lt brachial 07/14/19 Position Sitting 07/14/19 Respiration 16 07/14/19 Pulse 84 07/14/19 Pulse Source Auscultation Intake Visit Reasons: CP, LT ARM PAIN RADIATING. [employer] Required: No Accompanied by: Self Allergies latex Allergy (Intermediate, Verified 07/14/19 11:03) Rash Medications amlodipine 5 mg tablet 5 mg PO DAILY 07/07/19 [History Confirmed 07/14/19] hydrochlorothiazide 25 mg tablet 25 mg PO DAILY 07/07/19 [History Confirmed 07/14/19] lisinopril 20 mg tablet 20 mg PO BID tab 07/07/19 [History Confirmed 07/14/19] Betaine Hydrochloride 1 tab PO TID 07/14/19 [History Confirmed 07/14/19] Boswella complex 1 tab PO TID 07/14/19 [History Confirmed 07/14/19] Zinc Liver Chelate 2 tab PO TID 07/14/19 [History Confirmed 07/14/19] aspirin 81 mg tablet,delayed release 81 mg PO DAILY #1 tab 07/14/19 [Rx Confirmed 07/14/19] calcium lactate 100 mg calcium tablet 200 mg PO TID tab 07/14/19 [History] catalyn 1 tab PO TID 07/14/19 [History Confirmed 07/14/19] cataplex a-c 1 tab PO TID 07/14/19 [History Confirmed 07/14/19] chelaCO 1 tab PO TID 07/14/19 [History Confirmed 07/14/19] eco thyro 37 3 tab PO TID 07/14/19 [History] magnesium L-lactate 84 mg tablet,extended release 84 mg PO TID 07/14/19 [History Confirmed 07/14/19] natures thyroid 0.5 g PO BID 07/14/19 [History] [facility] Medical History Hypothyroidism (Chronic) Essential hypertension (Chronic) Thoracic back pain (Chronic) Obesity (Chronic) Chest pain (Acute) Vitamin deficiency (Chronic) Back problem (Inactive) HTN (hypertension) (Inactive) Surgical History History of removal of cyst (Resolved) Family History Mother Anemia Arthritis Breast cancer CVA (cerebral vascular accident) Father Myocardial infarction Heart disease Grandmother Liver disease Son Anxiety Social History (Updated 07/14/19 @ 12:[address] Nestor Do MD) Smoking Status: Never smoker alcohol intake: never substance use type: does not use caffeine: No ROS Const Const: Positive for fatigue (ongoing); negative for weakness, frequent falls, excessive sweating, weight gain or weight loss Eyes Eyes: Negative for transient loss of vision, blurry vision or change in vision ENT ENT: Negative for dizziness or balance problems Cardio Chest Pain: No Palpitations: No Edema: Bilateral (slight ankles,pedals) Muscle aches with walking: None Additional Details: Patient reports pain that originates in Lt side of neck and radiates into LT chest and Lt arm Resp Respiratory: Negative for SOB with activity or SOB at rest GI GI: Negative vomiting or vomiting blood/hematemesis : Negative for hematuria Musc Musc: Positive for joint pain (generalized); negative for muscle aches/ myalgia, muscle weakness or balance problems Skin Skin: Negative non-healing lesions or rash Neuro Neuro: Negative for dizziness, lightheadedness, orthostatic symptoms, frequent falls, weakness or blurry vision Pineda Hematologic/Lymphatic: Negative for easy bleeding Endo Endo: Positive for fatigue (ongoing); negative for excessive sweating Psych Psych: Negative for anxiety or depression Allergy Allergy/Immunology: Negative for hives, Negative for rash Cardiology Exam Const Appearance: cooperative, healthy appearing, comfortable, no acute distress, well developed and well groomed Nutritional Appearance: obese Orientation: alert, awake and oriented x3 Head Head: normal to inspection Ears: hearing grossly normal bilaterally Nose: external nose normal Face and Sinus: face symmetric Eyes Eyelids: eyelids normal Conjunctivae: conjunctivae normal Pupils: PERRL EOM: EOM intact bilaterally Neck Neck: normal visual inspection Carotids: normal carotid upstroke Chest Chest inspection: normal inspection of the chest, symmetric chest movement and normal respiratory effort Auscultation: Bilateral: Clear to Auscultation Cardio Palpation: normal PMI Rate: regular rate Rhythm: regular rhythm Heart sounds: S1 normal and S2 normal GI GI: normal to inspection, soft and obese Neuro General: alert, awake, oriented x3 and moves all extremities Skin Skin: no rashes or lesions noted Extremities Pulses: Normal: Right Radial Pulse, Left Radial Pulse Lower Extremity Edema: Trace: Bilateral Psych Psychological: normal affect Assessment Plan 1. Chest pain, unspecified R07.9 Plan At the present time the etiology of her chest discomfort is unclear. From a cardiac standpoint she will undergo further evaluation. This will include an echocardiogram to evaluate for left ventricular wall motion abnormalities and alteration in LV systolic function. We will also include a pharmacologic stress nuclear imaging study to evaluate for any obvious evidence of ongoing myocardial ischemia warranting further evaluation and care. In the interim she will initiate medical therapy with aspirin 81 mg p.o. daily. Orders Orders: 12 Lead EKG performed by [facility] Today Echo Complete Today Nuclear Stress Test - Chemical Today 2. Essential hypertension I10 Plan She does have a history of hypertension. She will have further evaluation for secondary causes which will include a renal artery duplex study. Orders Orders: 12 Lead EKG performed by [facility] Today Echo Complete Today Nuclear Stress Test - Chemical Today Renal Artery Duplex Ultrasound Today 3. Obesity E66.9 Plan Unfortunately she is overweight/obese. She does need to attempt to alter her diet and her activity to try and bring her weight under better control. Orders Orders: Echo Complete Today Nuclear Stress Test - Chemical Today Renal Artery Duplex Ultrasound Today Plan Detail Other Medications New: aspirin 81 mg PO DAILY 1 tab 0RF Additional Comments Thank you for allowing me to participate in the care of your patient. Please don't hesitate to call if any issues arise. This note was generated using a voice recognition system and there may be incorrect words, spelling or punctuation that were not noted when reviewing the office note prior to saving. Follow Up 3 Months (PFM) Coding Level of Care Code Off vis,new,level 4 Diagnoses Chest pain, unspecified R07.9 Essential hypertension I10 Obesity E66.9 ?Obesity classification: adult class 3 (BMI >= 40) Time Spent (min) 45 Comment 26299 Coding Level of Care Code Off vis,new,level 4 Diagnoses Chest pain, unspecified R07.9 Essential hypertension I10 Obesity E66.9 ?Obesity classification: adult class 3 (BMI >= 40) Time Spent (min) 45 Comment [id number] Supplemental Info Supplemental Information Stress Echo: 09/25/2017 Interpretation Summary The study was technically difficult. Contrast injection was performed. The estimated ejection fraction is 65 %. Normal, adequate, treadmill echocardiogram. Negative for ischemia by EKG and echocardiographic criteria. No anginal symptoms noted. Rare PACs noted. Appropriate blood pressure hypertensive blood pressure response to exercise. Poor exercise capacity for age. Decreased sensitivity due to poor echo windows requiring Definity agent. Final LVEF of 70%. Reason for test termination not documented. No complications. Labs LDL Cholesterol 73 mg/dL (0-130) 09/25/17 HDL Cholesterol 71 mg/dL (40-) 09/25/17 Triglycerides 143 mg/dL (-199) 09/25/17 VLDL Cholesterol 29 mg/dL (5-40) 09/25/17 Diagnostics Electrocardiogram 07/14/19 Stress Echocardiogram 09/25/17 Chest X-Ray 09/24/17 07/14/19 1257 <Electronically signed by Nestor Do MD> Date Nestor Do MD Cosigner Signature: Date (if applicable) CC: DO Beryl Barnett Start: 04-21-2019 End: 04-22-2019 Dexa Bone Density Study Comments: See Note; NOTES: [facility] [address] [place] [id number] Dexa Bone Density Study MR#: [id number] Acct: [id number] Name: CAMILLE BERNABE Ana Rep #: [id number] : 1950 F 68 From: Mario Randolph MD PCP: Beryl Keane DO Status: [facility] Study: Dexa Bone Density Study Date of Exam: 04/21/19 Exam# [id number] Ordering Dr: Lakhwinder,Beryl DO STUDY: DUAL ENERGY X-RAY ABSORPTIOMETRY / DXA REASON FOR EXAM: Female, 68 years old. Age of rochelle- 51. Pat is 242.6# and 63 and quot; a loss of 2 and quot; per patient. Patient takes a medication called Nature Thyroid from her dr. Takes a multi-vit. Does not exercise. TECHNIQUE: Bone Mineral Density (BMD) measurements of lumbar spine and bilateral hips were obtained. COMPARISON: None. FINDINGS: Lumbar Spine (L1-L4): g/cm2 (1.141) / T-score (-0.3) / Z-score (1.3) Findings are suggestive of normal bone density with a low fracture risk. Left Femur Total: g/cm2 (1.035) / T-score (0.2) / Z-score (1.6) Left Femoral Neck: g/cm2 (0.849) / T-score (-1.4) / Z-score (0.2) Right Femur Total: g/cm2 (1.039) / T-score (0.2) / Z-score (1.6) Right Femoral Neck: g/cm2 (0.895) / T-score (-1.0) / Z-score (0.6) BD/Dexa Bone Density Study IMPRESSION: The patient is considered osteopenic as outlined below according to World Rony Organization (WHO) criteria with a low fracture risk. Reference Information: The T-score is the number of standard deviations above or below the standard which is normal for young adults at their peak bone mineral density. The World Health Organization (WHO) interprets the T-scores as follows: Above -1 Normal bone density Between -1 and -2.5 Osteopenia Equal to / or below -2.5 Osteoporosis As a practical clinical guideline, osteopenia may be graded as follows: Mild -1 through -1.5 Moderate -1.6 through -2.0 Severe -2.1 through -2.4 The Z-score is the number of standard deviations above or below age-matched controls. A Z-score of less than -1.5 would be considered abnormal. References: 1. NIH Osteoporosis and Related Bone Diseases http://www.osteo.org 2. International Society for Clinical Densitometry http://www.iscd.org 3. National Osteoporosis Foundation http://www.nof.org Electronically Signed: Mario Randolph, at 13:19 EST , Service support , CC: Beryl Keaen DO Commissioning Agent: Signed Beryl Keane Work Phone: Start: 04-21-2019 End: 04-21-2019 SCREEN MAMM (CAD) W/AMPARO BILAT Comments: See Note; NOTES: [facility] [address] [place] [id number] SCREEN MAMM (CAD) W/AMPARO BILAT MR#: [id number] Acct: [id number] Name: CAMILLE BERNABE Rep #: [id number] : 1950 F 68 From: Mario Randolph MD PCP: Beryl Keane DO Status: REG CLI Study: SCREEN MAMM (CAD) W/AMPARO BILAT Date of Exam: 04/21/19 Exam# [id number] Ordering Dr: Beryl Keane DO MAMMOGRAPHY - BILATERAL SCREENING REASON FOR EXAM: Female, 68 years old. Routine annual screening examination. PERTINENT HISTORY: Mother with breast cancer. TECHNIQUE: Digital bilateral breast amparo (3D mammographic acquisition) in the CC and MLO projections. 2-D mediolateral oblique (MLO) and craniocaudad (CC) views of both breasts were obtained. CAD: Full Field Digital Mammography with Computer Added Detection was performed. COMPARISON: No comparison mammograms available at this time. If any prior films become available, an addendum to this report can be generated. FINDINGS: Breast Composition: There are scattered areas of fibroglandular density. There are no dominant masses or suspicious calcifications. No other significant abnormalities are identified. BI/SCREEN MAMM (CAD) W/AMPARO BILAT IMPRESSION: Negative screening mammogram. Yearly followup mammogram recommended. (A) ASSESSMENT CATEGORY: BIRADS Category 1: Negative. A letter regarding these results will be sent to the patient by the facility within 30 days. Approximately 10% of breast cancers are not detected by mammography. A normal mammogram should not delay biopsy of a clinically suspicious abnormality. [id number] Electronically Signed: Mario Randolph, at 15:36 EST , Service support , CC: Beryl Keane DO Commissioning Agent: Signed Beryl Keane Work Phone: Plan of Treatment Date Care Activity Detail Author Start: 01-01-2023 Procedure Education Eprescribe d prescriptions (G8553) [facility]; [facility] Work Phone: Start: 01-01-2023 Provider Instruction s for Treatment [facility]; [facility] Work Phone: Start: 01-01-2023 25 hydroxy includes fractions if performed CALCIFIDIOL (39794) VIT D 25 [facility]; [facility] Work Phone: Start: 01-01-2023 Assay of thyroid stimulating hormone tsh TSH (70338) [facility]; [facility] Work Phone: Start: 01-01-2023 Urnls dip stick/tabl et reagent auto microscopy URINALYSIS, W/ MICRO (30892) [facility]; [facility] Work Phone: Start: 01-01-2023 Urine albumin quantitative MICROALBUMIN: CREATININE RATIO (72292) AND (97258) [facility]; [facility] Work Phone: Start: 01-01-2023 Comprehensive metabolic panel METABOLIC PANEL, COMPREHENSIVE (07540) [facility]; [facility] Work Phone: Start: 01-01-2023 Lipid panel LIPID PANEL (58614) [facility]; [facility] Work Phone: Start: 01-01-2023 Blood count complete auto&auto difrntl wbc CBC W/AUTO DIFF WBC (10529) [facility]; [facility] Work Phone: Start: 10-22-2022 Procedure Education Eprescribe d prescriptions (G8553) [facility]; [facility] Work Phone: Start: 09-25-2022 Procedure Education Eprescribe d prescriptions (G8553) [facility]; [facility] Work Phone: Start: 09-25-2022 Provider Instruction s for Treatment [facility]; [facility] Work Phone: Start: 06-19-2022 Procedure Education Eprescribe d prescriptions (G8553) [facility]; [facility] Work Phone: Start: 06-19-2022 Provider Instruction s for Treatment [facility]; [facility] Work Phone: Start: 06-19-2022 25 hydroxy includes fractions if performed CALCIFIDIOL (28038) VIT D 25 [facility]; [facility] Work Phone: Start: 06-19-2022 Urnls dip stick/tabl et reagent auto microscopy URINALYSIS, W/ MICRO (02668) [facility]; [facility] Work Phone: Start: 06-19-2022 Urine albumin quantitative MICROALBUMIN: CREATININE RATIO (67713) AND (31911) [facility]; [facility] Work Phone: Start: 06-19-2022 Comprehensive metabolic panel METABOLIC PANEL, COMPREHENSIVE (17882) [facility]; [facility] Work Phone: Start: 06-19-2022 Lipid panel LIPID PANEL (25922) [facility]; [facility] Work Phone: Start: 06-19-2022 Blood count complete auto&auto difrntl wbc CBC W/AUTO DIFF WBC (40172) [facility]; [facility] Work Phone: Start: 06-19-2022 Assay of thyroid stimulating hormone tsh TSH (78578) [facility]; [facility] Work Phone: Start: 03-19-2022 Procedure Education Eprescribe d prescriptions (G8553) [facility]; [facility] Work Phone: Start: 03-19-2022 Provider Instruction s for Treatment [facility]; [facility] Work Phone: Start: 12-11-2021 Procedure Education Eprescribe d prescriptions (G8553) [facility]; [facility] Work Phone: Start: 12-11-2021 Provider Instruction s for Treatment [facility]; [facility] Work Phone: Start: 12-11-2021 25 hydroxy includes fractions if performed CALCIFEDIOL (34398) [facility]; [facility] Work Phone: Start: 12-11-2021 Urnls dip stick/tabl et reagent auto microscopy URINALYSIS, W/ MICRO (92670) [facility]; [facility] Work Phone: Start: 12-11-2021 Urine albumin quantitative MICROALBUMIN: CREATININE RATIO (99034) AND (13002) [facility]; [facility] Work Phone: Start: 12-11-2021 Comprehensive metabolic panel METABOLIC PANEL, COMPREHENSIVE (77460) [facility]; [facility] Work Phone: Start: 12-11-2021 Lipid panel LIPID PANEL (90928) [facility]; [facility] Work Phone: Start: 12-11-2021 Blood count complete auto&auto difrntl wbc CBC W/AUTO DIFF WBC (81160) [facility]; [facility] Work Phone: Start: 12-11-2021 Assay of thyroid stimulating hormone tsh TSH (12878) [facility]; [facility] Work Phone: Start: 09-05-2021 Procedure Education Eprescribe d prescriptions (G8553) [facility]; [facility] Work Phone: Start: 09-05-2021 Provider Instruction s for Treatment [facility]; [facility] Work Phone: Start: 07-10-2021 Procedure Education Eprescribe d prescriptions (G8553) [facility]; [facility] Work Phone: Start: 07-10-2021 Provider Instruction s for Treatment Reviewed Diagnostic Tests [facility]; [facility] Work Phone: Start: 06-17-2021 Procedure Education Eprescribe d prescriptions (G8553) [facility]; [facility] Work Phone: Start: 06-17-2021 Provider Instruction s for Treatment [facility]; [facility] Work Phone: Start: 05-16-2021 Procedure Education Eprescribe d prescriptions (G8553) [facility]; [facility] Work Phone: Start: 05-16-2021 Provider Instruction s for Treatment [facility]; [facility] Work Phone: Start: 05-16-2021 25 hydroxy includes fractions if performed CALCIFIDIOL (25622) VIT D 25 [facility]; [facility] Work Phone: Start: 05-16-2021 Urnls dip stick/tabl et reagent auto microscopy URINALYSIS, W/ MICRO (90985) [facility]; [facility] Work Phone: Start: 05-16-2021 Urine albumin quantitative MICROALBUMIN: CREATININE RATIO (90386) AND (06961) [facility]; [facility] Work Phone: Start: 03-17-2022 Comprehensive metabolic panel METABOLIC PANEL, COMPREHENSIVE (13007) [facility]; [facility] Work Phone: Start: 05-16-2021 Lipid panel LIPID PANEL (90133) [facility]; [facility] Work Phone: Start: 05-16-2021 Blood count complete auto&auto difrntl wbc CBC W/AUTO DIFF WBC (67984) [facility]; [facility] Work Phone: Start: 05-16-2021 Assay of thyroid stimulating hormone tsh TSH (42201) [facility]; [facility] Work Phone: Start: 02-13-2021 Procedure Education Eprescribe d prescriptions (G8553) [facility]; [facility] Work Phone: Start: 02-13-2021 Provider Instruction s for Treatment [facility]; [facility] Work Phone: Start: 11-21-2020 Procedure Education Eprescribe d prescriptions (G8553) [facility]; [facility] Work Phone: Start: 11-21-2020 Provider Instruction s for Treatment [facility]; [facility] Work Phone: Start: 11-21-2020 Urnls dip stick/tabl et reagent auto microscopy URINALYSIS, W/ MICRO (61183) [facility]; [facility] Work Phone: Start: 11-21-2020 Urine albumin quantitative MICROALBUMIN: CREATININE RATIO (32482) AND (93194) [facility]; [facility] Work Phone: Start: 10-10-2020 Procedure Education Eprescribe d prescriptions (G8553) [facility]; [facility] Work Phone: Start: 10-10-2020 Provider Instruction s for Treatment [facility]; [facility] Work Phone: Start: 09-13-2020 Procedure Education Eprescribe d prescriptions (G8553) [facility]; [facility] Work Phone: Start: 08-22-2020 Procedure Education Eprescribe d prescriptions (G8553) [facility]; [facility] Work Phone: Start: 08-22-2020 Provider Instruction s for Treatment [facility]; [facility] Work Phone: Start: 08-22-2020 25 hydroxy includes fractions if performed CALCIFIDIOL (89258) VIT D 25 [facility]; [facility] Work Phone: Start: 08-22-2020 Lipoprotein blood qu an numbers & subclasses NMR Profile (98478) [facility]; [facility] Work Phone: Start: 08-01-2020 C-reactive protein high sensitivity C-REACT PROT HIGH SENS(hsCRP) (42102) [facility]; [facility] Work Phone: Comment on above: Fax Results to [facility] [phone] Start: 08-01-2020 25 hydroxy includes fractions if performed CALCIFEDIOL (87866) [facility]; [facility] Work Phone: Comment on above: Fax Results to [facility] [phone] Start: 08-01-2020 Assay of thyroid stimulating hormone tsh TSH (THYROID STIMULATING HORMONE) (02619) [facility]; [facility] Work Phone: Comment on above: Fax Results to [facility]8 [phone] Start: 08-01-2020 Comprehensive metabolic panel METABOLIC PANEL, COMPREHENSIVE (88868) [facility]; [facility] Work Phone: Comment on above: Fax Results to [facility]8 [phone] Start: 08-01-2020 Hemoglobin glycosylated a1c HGB A1C (12041) [facility]; [facility] Work Phone: Comment on above: Fax Results to [facility]3 [phone] Start: 06-08-2020 Procedure Education Eprescribe d prescriptions (G8553) [facility]; [facility] Work Phone: Start: 06-08-2020 Provider Instruction s for Treatment [facility]; [facility] Work Phone: Start: 06-08-2020 Hepatitis c antibody HEPATITIS C ANTIBODY (36499) [facility]; [facility] Work Phone: Start: 05-11-2020 Procedure Education Eprescribe d prescriptions (G8553) [facility]; [facility] Work Phone: Start: 05-11-2020 Provider Instruction s for Treatment [facility]; [facility] Work Phone: Start: 02-08-2020 Procedure Education Eprescribe d prescriptions (G8553) [facility]; [facility] Work Phone: Start: 02-08-2020 Provider Instruction s for Treatment [facility] Internal [facility]; [facility] Work Phone: Start: 02-08-2020 Blood count complete automated CBC & PLATELETS (AUTO) (27842) [facility]; [facility] Work Phone: Start: 02-08-2020 Cobalamin (Vitamin B12) [Mass/Vol] VITAMIN B-12 (CYANOCOBALAMIN) (82891) [facility]; [facility] Work Phone: Start: 02-08-2020 Heavy metal qualitative any analytes HEAVY METAL SCREEN (95567) [facility]; [facility] Work Phone: Start: 02-08-2020 Hepatitis c antibody HEPATITIS C ANTIBODY (07138) [facility]; [facility] Work Phone: Start: 02-08-2020 Nuclear Ab IF (S) [Titer] EVELINE (ANTINUCLEAR ANTIBODY) (99001) [facility]; [facility] Medicine Work Phone: Start: 02-08-2020 Protein [Mass/Vol] Serum Prote in Electrophoresis (SPEP) (97095) [facility]; [facility] Work Phone: Start: 02-08-2020 Sedimentation rate r bc non-automated SED RATE ERYTHROCYTE (44299) [facility]; [facility] Work Phone: Start: 02-08-2020 HbA1c (Bld) [Mass fraction] HGB A1C (22016) [facility]; [facility] Work Phone: Comment on above: do in 3mo ( may 19 Start: 02-08-2020 Lipoprotein blood qu an numbers & subclasses NMR Profile (81244) [facility]; [facility] Work Phone: Start: 02-08-2020 TSH Qn TSH (THYROID S TIMULATING HORMONE) (61303) [facility]; [facility] Work Phone: Start: 02-08-2020 Urine albumin quantitative MICROALBUMIN: CREATININE RATIO (23329) AND (13259) [facility]; [facility] Work Phone: Start: 02-08-2020 Comprehensive metabolic panel METABOLIC PANEL, COMPREHENSIVE (06259) [facility]; [facility] Work Phone: Start: 02-08-2020 Blood count complete auto&auto difrntl wbc CBC with auto diff (29216) [facility]; [facility] Work Phone: Start: 11-02-2019 Procedure Education Eprescribe d prescriptions (G8553) [facility] Work Phone: Start: 11-02-2019 Provider Instruction s for Treatment [facility] Work Phone: Start: 08-03-2019 Procedure Education Eprescribe d prescriptions (G8553) [facility] Work Phone: Start: 08-03-2019 Provider Instruction s for Treatment [facility] Work Phone: Start: 08-03-2019 Lipoprotein blood qu an numbers & subclasses NMR Profile (66245) [facility] Work Phone: Start: 08-03-2019 Urnls dip stick/tabl et reagent auto microscopy URINALYSIS, W/ MICRO (84625) [facility] Work Phone: Start: 08-03-2019 TSH Qn TSH (97488) [facility] Work Phone: Start: 08-03-2019 Urine albumin quantitative MICROALBUMIN: CREATININE RATIO (36474) AND (62718) [facility] Work Phone: Start: 08-03-2019 Comprehensive metabolic panel METABOLIC PANEL, COMPREHENSIVE (46410) [facility] Work Phone: Start: 08-03-2019 Blood count complete auto&auto difrntl wbc CBC W/AUTO DIFF WBC (96956) [facility] Work Phone: Start: 06-22-2019 Procedure Education Eprescribe d prescriptions (G8553) [facility] Work Phone: Start: 06-22-2019 Provider Instruction s for Treatment [facility] Work Phone: Start: 06-01-2019 Procedure Education Eprescribe d prescriptions (G8553) [facility] Work Phone: Start: 06-01-2019 Provider Instruction s for Treatment [facility] Work Phone: Start: 05-04-2019 Procedure Education Eprescribe d prescriptions (G8553) [facility] Work Phone: Start: 05-04-2019 Provider Instruction s for Treatment [facility] Work Phone: Start: 04-04-2019 Oncology colorectal screening bronson 10 dna markrs Cologuard - Strool Based DNA Test, CRC SCREEN (16073) [facility] Work Phone: Start: 04-04-2019 Procedure Education Eprescribe d prescriptions (G8553) [facility] Work Phone: Start: 04-04-2019 Provider Instruction s for Treatment [facility] Work Phone: Start: 09-15-2016 Procedure Education Eprescribe d prescriptions (G8553) [facility] Work Phone: Start: 09-15-2016 Provider Instruction s for Treatment Follow up if no improvement or if symptoms worsen [facility] Work Phone: Start: 09-09-2016 Procedure Education Eprescribe d prescriptions (G8553) [facility] Work Phone: Start: 09-09-2016 Provider Instruction s for Treatment [facility] Work Phone: [facility] Work [facility]: [facility] Work [facility]: [facility] Work [facility]: [facility] Work Phone: [facility]; [facility] Work Phone: [facility]; [facility] Work Phone: [facility]; [facility] Work Phone: [facility]; [facility] Work Phone: [facility]; [facility] Work Phone: [facility]; [facility] Work Phone: [facility]; [facility] Work Phone: [facility]; [facility] Work Phone: [facility]; [facility] Work Phone: [facility]; [facility] Work Phone: Payers Date Payer Category Payer Self-pay [id number] 2023 Medicare [id number] 2021 Medicare [id number] 2021 Unknown [id number] 2016 Private Health Insurance [id number] 1950 Unknown [id number] Unknown Unknown [employer] [id number] Unknown [id number] Unknown [id number] Unknown [id number] [id number] Unknown [id number] [id number] Unknown [id number] [id number] Unknown [id number] [id number] Unknown [id number] [id number] Unknown [id number] 2.16.840.1.888529.3.579.2.462 Unknown [id number] [id number] Unknown [id number] [id number] Unknown [id number] [id number] Unknown [id number] [id number] Unknown [id number] [id number] Unknown [id number] [id number] Unknown [id number] [id number] Unknown [id number] [id number] Unknown [id number] [id number] Unknown [id number] [id number] Social History Date Type Detail Facility Alcohol use: Alcohol use: [facility] Work Phone: Tobacco use: Tobacco use: [facility] Work Phone: Alcohol use: Alcohol use: [facility]; [facility] Work Phone: Tobacco use: Tobacco use: [facility]; [facility] Work Phone: Start: 03-08-2021 Tobacco smoking status NHIS Unknown if ever smoked [facility] Start: 09-24-2017 None [facility] Start: 09-27-2017 Non-smoker [facility] Start: 1950 Sex Assigned At Female [facility] Start: 04-25-2024 End: 04-25-2024 Tobacco smoking status NHIS Never smoked tobacco (finding) [facility] Start: 05-06-2024 End: 06-01-2024 Sex Female (finding) [facility] sp[facility] Functional Status Date Assessment Result Facility 09-13-2020 LP-IR Score LP-IR Score <25 [facility]; [facility] Work Phone: Comment on above: INSULIN RESISTANCE M PETER <--Insulin Sensitive Insulin Resistant--> Percentile in Reference PopulationInsulin Resistance ScoreLP-IR Score Low 25th 50th 75th High <27 27 45 63 >63LP-IR Score is inaccurate if patient is non-fasting. .The LP-IR score is a laboratory developed index that has beenassociated with insulin resistance and diabetes risk and should beused as one component of a physician's clinical assessment. Test(s) 315569-TJY-A ; 066730-FMG-Q; 455427-Qlruzexrvbnuy; 468978-Ghtolqujlvc, Total; 993211-GZT-W (Total); 105982-Vfdwv LDL-P; 524537-HZW Size; 351544-JU-QX Scorewas developed and its performance characteristics determinedby [employer]. It has not been cleared or approved by the Foodand Drug Administration.PATIENT WAS FASTINGPERFORMED BY: BN [employer] [address] [id number] BY: CB [employer] [id number] [facility] [id number] 05-01-2020 LP-IR Score LP-IR Score 43 [facility]; [facility] Work Phone: Comment on above: INSULIN RESISTANCE M PETER <--Insulin Sensitive Insulin Resistant--> Percentile in Reference PopulationInsulin Resistance ScoreLP-IR Score Low 25th 50th 75th High <27 27 45 63 >63LP-IR Score is inaccurate if patient is non-fasting. .The LP-IR score is a laboratory developed index that has beenassociated with insulin resistance and diabetes risk and should beused as one component of a physician's clinical assessment. Test(s) 460593-EQM-Y ; 549382-SBG-X; 907156-Yzzfwfvssvckw; 052923-Dplsdvuyevq, Total; 352938-RQE-G (Total); 615890-Hkhpy LDL-P; 175188-CHO Size; 055799-SJ-WD Scorewas developed and its performance characteristics determinedby [employer]. It has not been cleared or approved by the Foodand Drug Administration.PATIENT WAS FASTINGPERFORMED BY: [email or web address] [address] [id number] BY: [facility] [id number] 10-26-2019 LP-IR Score LP-IR Score 37 [facility] Work Phone: Comment on above: INSULIN RESISTANCE Libby GREEN <--Insulin Sensitive Insulin Resistant--> Percentile in Reference PopulationInsulin Resistance ScoreLP-IR Score Low 25th 50th 75th High <27 27 45 63 >63LP-IR Score is inaccurate if patient is non-fasting. .The LP-IR score is a laboratory developed index that has beenassociated with insulin resistance and diabetes risk and should beused as one component of a physician's clinical assessment. Test(s) 975501-LWY-E ; 032339-DQX-L; 386984-JVH-Z; 981014-Wglnepegzlcvz; 866076-Ryagpltthhb, Total; 393675-RSG-N (Total);251374-Iscvh LDL-P; 711277-VGN Size; 025209-SG-VH Scorewas developed and its performance characteristics determinedby Dheere Bolo. It has not been cleared or approved by the Foodand Drug Administration.PATIENT WAS FASTINGPERFORMED BY: [email or web address] [address] [id number] BY: [employer] [facility] [id number] 04-21-2019 LP-IR Score LP-IR Score 35 [facility] Work Phone: Comment on above: INSULIN RESISTANCE Libby GREEN <--Insulin Sensitive Insulin Resistant--> Percentile in Reference PopulationInsulin Resistance ScoreLP-IR Score Low 25th 50th 75th High <27 27 45 63 >63LP-IR Score is inaccurate if patient is non-fasting. .The LP-IR score is a laboratory developed index that has beenassociated with insulin resistance and diabetes risk and should beused as one component of a physician's clinical assessment. Test(s) 088606-OKB-M ; 860261-JNH-L; 782577-PBN-O; 792646-Xkcnxkyxnmdit; 427636-Jbocxirtlet, Total; 958135-QLJ-P (Total);949543-Uzwkc LDL-P; 858554-NSQ Size; 128027-FY-EW Scorewas developed and its performance characteristics determinedby [employer]. It has not been cleared or approved by the Foodand Drug Administration.PATIENT WAS FASTINGPERFORMED BY: BN [facility] [address] [id number] BY: CB [facility] [id number] [facility] [id number] Clinical Notes 04-25-2024 to 06-21-2024 Note Date & Type Note Facility 06-21-2024 Note [facility] Medical Records Department [address] [place] [id number] History Physical Exam 06/21/24 1143 MR#: [id number] Acct: [id number] Name: CAMILLE BERNABE Rep #: [id number] : 1950 74 From: Snehal Lozano DO PCP: Dr. Beryl Keane, DO Status:[facility] Location: [place] [address] History and Physical Date of Admission: 06/21/24 Intake Vital Signs 04/25/2510:09 06/09/2508:54 Height 5 ft 3 in 5 ft 3 in Weight: 246 lb 4 oz 249 lb BMI 43.6 44.1 BP 166/81 H 174/94 H Intake Visit Reasons: D C polypectomy [employer] Required: No Is patient in pain?: No Allergies latex Allergy (Intermediate, Verified 06/09/24 11:30) Rash Medications ???Medication ???Instructions ???Recorded ???Confirmed ???Type Zinc Liver Chelate 2 tab PO TID 07/14/19 06/09/24 History catalyn 1 tab PO TID 07/14/19 06/09/24 History gotu rui (Centella asiatica) 475 475 mg PO DAILY 04/25/24 06/09/24 History mg capsule medium chain triglycerides 14 15 ml PO QDAY 04/25/24 06/09/24 History gram-120 kcal/15 mL oral oil (MCT Oil) omega [id number]-xodr oil 600 1 cap PO DAILY 04/25/24 06/09/24 History mg-20 mg-500 mcg-800 mcg capsule Is last menstrual period known: No Post menopausal: Yes Patient : No : No PFSH Medical History (Updated 06/09/24 @ 17:[address] Snehal Lozano, DO) Wears glasses History of steroid therapy Thyroid disease Arthritis Non-smoker Shortness of breath on exertion Cardiology follow-up encounter History of stress test History of echocardiogram Ingrown toenail Hypothyroidism Essential hypertension Thoracic back pain Obesity HTN (hypertension) Chest pain Vitamin deficiency Back problem Surgical History (Updated 06/09/24 @ 11:41 by Sera Perez) History of toe surgery ( 1963) History of removal of cyst Family History Mother Anemia Arthritis Breast cancer CVA (cerebral vascular accident)Father Myocardial infarction Heart diseaseGrandmother Liver diseaseSon Anxiety Social History Smoking Status: Never smoker alcohol intake: never substance use type: does not use caffeine: No what type of physical activity do you participate in: none seatbelt use: always do you feel safe at home: Yes 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 She saw her pcp, Dr. Burnham who referred her to us. She states that the spotting started a few months ago and is off and on. She takes multiple OTC supplements, one of which is a protomorphogen blend of tissue from animals that includes organs including the ovaries. Her mother had large fibroids, the size of soccer balls. She wonders if fibroids could be causing the problems. She consents to an endometrial biopsy today. ultrasound in January is as follows: FINDINGS: The uterus is anteverted and is in a midline position. The uterus measures 10.0 x 10.3 x 6.9 cm. Normal uterine cervix. The endometrium measures 8 mm in thickness, and is fluid distended. There is no demonstrated endometrial mass. 5.4 cm exophytic hypoechoic mass in the anterior fundus the uterus consistent with a subserosal fibroid. Another 5.1 cm round hypoechoic mass in the fundus the uterus consistent with an intramural fibroid. The ovaries are not visualized.. There is no fluid in the cul-de-sac. She is scheduled for a hysteroscopy D C soon. History 9 Elective abortions Hx Para 6 Spontaneous abortions Hx # Term Pregnancies Ectopic pregnancies Hx # Pregnancies Multiple births # of living children ROS Const ROS Unobtainable: All systems reviewed are unremarkable except as noted in H Resp Resp: Reports system reviewed and no additional complaints, except as documented; Denies cough GI GI: Reports as per HPI Psych Psych: Reports system reviewed and no additional complaints, except as documented Exam Const General: cooperative, healthy appearing, comfortable and no acute distress Resp Effort Inspection: normal respiratory effort Skin General: no rashes or lesions noted Psych Appearance: grossly normal Speech and Movement: speech and movement normal Coding Level of Care Code Off vis,est,level 4 Diagnoses Postmenopausal bleeding N95.0 Thickened endometrium R93.89 Assessment and Plan Assessment and Plan (1) Postmenopausal bleeding: Status: Acute (2) Thickened endometrium: Status: Acute Plan After discussing the patient's diagnosis and treatment plan options, patient wishes to proceed with surgical management. I have disc (more content not included)... [facility] 04-25-2024 Evaluation note Diagnosis Onset Date Resolution Postmenopausal bleeding acute F ebruary 2024 10:19am [facility] Work Phone: Evaluation noteNo assessment information available [facility] Work Phone: Instructions* Name Dates Details How to Access Health Informa tion Online using Patient Portal and [employer] Apps Indication:Nonsmoker Start:08-Jun-2020 Instruction Type:Patient Education Patient Instructions Indication:Nonsmoker Start:08-Jun-2020 Instruction Type:Provider Instructions for Treatment How to Access Health Informa tion Online using Patient Portal and [employer] Apps Indication:Nonsmoker Start:11-May-2020 Instruction Type:Patient Education Patient Instructions Indication:Nonsmoker Start:11-May-2020 Instruction Type:Provider Instructions for Treatment How to Access Health Informa tion Online using Patient Portal and [employer] Apps Indication:BMI 40.0-44.9, adult Start:08-Feb-2020 Instruction Type:Patient Education Patient Instructions Indication:BMI 40.0-44.9, adult Start:08-Feb-2020 Instruction Type:Provider Instructions for Treatment How to access health informa tion online Indication:Nonsmoker Start:02-Nov-2019 Instruction Type:Patient Education How to access health informa tion online - Detail Indication:Nonsmoker Start:02-Nov-2019 Instruction Type:Patient Education Patient Instructions Indication:Nonsmoker Start:02-Nov-2019 Instruction Type:Provider Instructions for Treatment How to access health informa tion online Indication:Nonsmoker Start:03-Aug-2019 Instruction Type:Patient Education How to access health informa tion online - Detail Indication:Nonsmoker Start:03-Aug-2019 Instruction Type:Patient Education Patient Instructions Indication:Nonsmoker Start:03-Aug-2019 Instruction Type:Provider Instructions for Treatment How to access health informa tion online Indication:Nonsmoker Start:22-Jun-2019 Instruction Type:Patient Education How to access health informa tion online - Detail Indication:Nonsmoker Start:22-Jun-2019 Instruction Type:Patient Education Patient Instructions Indication:Nonsmoker Start:22-Jun-2019 Instruction Type:Provider Instructions for Treatment How to access health informa tion online Indication:Nonsmoker Start:01-Jun-2019 Instruction Type:Patient Education How to access health informa tion online - Detail Indication:Nonsmoker Start:01-Jun-2019 Instruction Type:Patient Education Patient Instructions Indication:Nonsmoker Start:01-Jun-2019 Instruction Type:Provider Instructions for Treatment How to access health informa tion online Indication:HTN (hypertension), benign Start:04-May-2019 Instruction Type:Patient Education How to access health informa tion online - Detail Indication:HTN (hypertension), benign Start:04-May-2019 Instruction Type:Patient Education Patient Instructions Indication:HTN (hypertension), benign Start:04-May-2019 Instruction Type:Provider Instructions for Treatment obesity counseling Indication:Abnormal glucose tolerance test (Renamed from Abnormal glucose tolerance test (GTT)) Start:04-Apr-2019 Instruction Type:Provider Instructions for Treatment How to access health informa tion online Indication:Nonsmoker Start:04-Apr-2019 Instruction Type:Patient Education How to access health informa tion online - Detail Indication:Nonsmoker Start:04-Apr-2019 Instruction Type:Patient Education Patient Instructions Indication:Nonsmoker Start:04-Apr-2019 Instruction Type:Provider Instructions for Treatment How to access health informa tion online Indication:Cellulitis of groin Start:15-Sep-2016 Instruction Type:Patient Education How to access health informa tion online - Detail Indication:Cellulitis of groin Start:15-Sep-2016 Instruction Type:Patient Education Patient Instructions Indication:Cellulitis of groin Start:15-Sep-2016 Instruction Type:Provider Instructions for Treatment How to access health informa tion online Indication:Cellulitis of groin Start:09-Sep-2016 Instruction Type:Patient Education How to access health informa tion online - Detail Indication:Cellulitis of groin Start:09-Sep-2016 Instruction Type:Patient Education Patient Instructions Indication:Cellulitis of groin Start:09-Sep-2016 Instruction Type:Provider Instructions for Treatment [facility]; [facility] Work Phone: Instructions* Name Dates Details How to Access Health Informa tion Online using Patient Portal and [employer] Apps Indication:Nonsmoker Start:08-Jun-2020 Instruction Type:Patient Education Patient Instructions Indication:Nonsmoker Start:08-Jun-2020 Instruction Type:Provider Instructions for Treatment How to Access Health Informa tion Online using Patient Portal and [employer] Apps Indication:Nonsmoker Start:11-May-2020 Instruction Type:Patient Education Patient Instructions Indication:Nonsmoker Start:11-May-2020 Instruction Type:Provider Instructions for Treatment How to Access Health Informa tion Online using Patient Portal and [employer] Apps Indication:BMI 40.0-44.9, adult Start:08-Feb-2020 Instruction Type:Patient Education Patient Instructions Indication:BMI 40.0-44.9, adult Start:08-Feb-2020 Instruction Type:Provider Instructions for Treatment How to access health informa tion online Indication:Nonsmoker Start:02-Nov-2019 Instruction Type:Patient Education How to access health informa tion online - Detail Indication:Nonsmoker Start:02-Nov-2019 Instruction Type:Patient Education Patient Instructions Indication:Nonsmoker Start:02-Nov-2019 Instruction Type:Provider Instructions for Treatment How to access health informa tion online Indication:Nonsmoker Start:03-Aug-2019 Instruction Type:Patient Education How to access health informa tion online - Detail Indication:Nonsmoker Start:03-Aug-2019 Instruction Type:Patient Education Patient Instructions Indication:Nonsmoker Start:03-Aug-2019 Instruction Type:Provider Instructions for Treatment How to access health informa tion online Indication:Nonsmoker Start:22-Jun-2019 Instruction Type:Patient Education How to access health informa tion online - Detail Indication:Nonsmoker Start:22-Jun-2019 Instruction Type:Patient Education Patient Instructions Indication:Nonsmoker Start:22-Jun-2019 Instruction Type:Provider Instructions for Treatment How to access health informa tion online Indication:Nonsmoker Start:01-Jun-2019 Instruction Type:Patient Education How to access health informa tion online - Detail Indication:Nonsmoker Start:01-Jun-2019 Instruction Type:Patient Education Patient Instructions Indication:Nonsmoker Start:01-Jun-2019 Instruction Type:Provider Instructions for Treatment How to access health informa tion online Indication:HTN (hypertension), benign Start:04-May-2019 Instruction Type:Patient Education How to access health informa tion online - Detail Indication:HTN (hypertension), benign Start:04-May-2019 Instruction Type:Patient Education Patient Instructions Indication:HTN (hypertension), benign Start:04-May-2019 Instruction Type:Provider Instructions for Treatment obesity counseling Indication:Abnormal glucose tolerance test (Renamed from Abnormal glucose tolerance test (GTT)) Start:04-Apr-2019 Instruction Type:Provider Instructions for Treatment How to access health informa tion online Indication:Nonsmoker Start:04-Apr-2019 Instruction Type:Patient Education How to access health informa tion online - Detail Indication:Nonsmoker Start:04-Apr-2019 Instruction Type:Patient Education Patient Instructions Indication:Nonsmoker Start:04-Apr-2019 Instruction Type:Provider Instructions for Treatment How to access health informa tion online Indication:Cellulitis of groin Start:15-Sep-2016 Instruction Type:Patient Education How to access health informa tion online - Detail Indication:Cellulitis of groin Start:15-Sep-2016 Instruction Type:Patient Education Patient Instructions Indication:Cellulitis of groin Start:15-Sep-2016 Instruction Type:Provider Instructions for Treatment How to access health informa tion online Indication:Cellulitis of groin Start:09-Sep-2016 Instruction Type:Patient Education How to access health informa tion online - Detail Indication:Cellulitis of groin Start:09-Sep-2016 Instruction Type:Patient Education Patient Instructions Indication:Cellulitis of groin Start:09-Sep-2016 Instruction Type:Provider Instructions for Treatment [facility]; [facility] Work Phone: Instructions* Name Dates Details Patient Instructions Indication:Nonsmoker Start:22-Aug-2020 Instruction Type:Provider Instructions for Treatment How to Access Health Informa tion Online using Patient Portal and [employer] Apps Indication:Nonsmoker Start:22-Aug-2020 Instruction Type:Patient Education How to Access Health Informa tion Online using Patient Portal and [employer] Apps Indication:Nonsmoker Start:08-Jun-2020 Instruction Type:Patient Education Patient Instructions Indication:Nonsmoker Start:08-Jun-2020 Instruction Type:Provider Instructions for Treatment How to Access Health Informa tion Online using Patient Portal and [employer] Apps Indication:Nonsmoker Start:11-May-2020 Instruction Type:Patient Education Patient Instructions Indication:Nonsmoker Start:11-May-2020 Instruction Type:Provider Instructions for Treatment How to Access Health Informa tion Online using Patient Portal and [employer] Apps Indication:BMI 40.0-44.9, adult Start:08-Feb-2020 Instruction Type:Patient Education Patient Instructions Indication:BMI 40.0-44.9, adult Start:08-Feb-2020 Instruction Type:Provider Instructions for Treatment How to access health informa tion online Indication:Nonsmoker Start:02-Nov-2019 Instruction Type:Patient Education How to access health informa tion online - Detail Indication:Nonsmoker Start:02-Nov-2019 Instruction Type:Patient Education Patient Instructions Indication:Nonsmoker Start:02-Nov-2019 Instruction Type:Provider Instructions for Treatment How to access health informa tion online Indication:Nonsmoker Start:03-Aug-2019 Instruction Type:Patient Education How to access health informa tion online - Detail Indication:Nonsmoker Start:03-Aug-2019 Instruction Type:Patient Education Patient Instructions Indication:Nonsmoker Start:03-Aug-2019 Instruction Type:Provider Instructions for Treatment How to access health informa tion online Indication:Nonsmoker Start:22-Jun-2019 Instruction Type:Patient Education How to access health informa tion online - Detail Indication:Nonsmoker Start:22-Jun-2019 Instruction Type:Patient Education Patient Instructions Indication:Nonsmoker Start:22-Jun-2019 Instruction Type:Provider Instructions for Treatment How to access health informa tion online Indication:Nonsmoker Start:01-Jun-2019 Instruction Type:Patient Education How to access health informa tion online - Detail Indication:Nonsmoker Start:01-Jun-2019 Instruction Type:Patient Education Patient Instructions Indication:Nonsmoker Start:01-Jun-2019 Instruction Type:Provider Instructions for Treatment How to access health informa tion online Indication:HTN (hypertension), benign Start:04-May-2019 Instruction Type:Patient Education How to access health informa tion online - Detail Indication:HTN (hypertension), benign Start:04-May-2019 Instruction Type:Patient Education Patient Instructions Indication:HTN (hypertension), benign Start:04-May-2019 Instruction Type:Provider Instructions for Treatment obesity counseling Indication:Abnormal glucose tolerance test (Renamed from Abnormal glucose tolerance test (GTT)) Start:04-Apr-2019 Instruction Type:Provider Instructions for Treatment How to access health informa tion online Indication:Nonsmoker Start:04-Apr-2019 Instruction Type:Patient Education How to access health informa tion online - Detail Indication:Nonsmoker Start:04-Apr-2019 Instruction Type:Patient Education Patient Instructions Indication:Nonsmoker Start:04-Apr-2019 Instruction Type:Provider Instructions for Treatment How to access health informa tion online Indication:Cellulitis of groin Start:15-Sep-2016 Instruction Type:Patient Education How to access health informa tion online - Detail Indication:Cellulitis of groin Start:15-Sep-2016 Instruction Type:Patient Education Patient Instructions Indication:Cellulitis of groin Start:15-Sep-2016 Instruction Type:Provider Instructions for Treatment How to access health informa tion online Indication:Cellulitis of groin Start:09-Sep-2016 Instruction Type:Patient Education How to access health informa tion online - Detail Indication:Cellulitis of groin Start:09-Sep-2016 Instruction Type:Patient Education Patient Instructions Indication:Cellulitis of groin Start:09-Sep-2016 Instruction Type:Provider Instructions for Treatment [facility]; [facility] Work Phone: Instructions* Name Dates Details Patient Instructions Indication:Nonsmoker Start:22-Aug-2020 Instruction Type:Provider Instructions for Treatment How to Access Health Informa tion Online using Patient Portal and [employer] Apps Indication:Nonsmoker Start:22-Aug-2020 Instruction Type:Patient Education How to Access Health Informa tion Online using Patient Portal and [employer] Apps Indication:Nonsmoker Start:08-Jun-2020 Instruction Type:Patient Education Patient Instructions Indication:Nonsmoker Start:08-Jun-2020 Instruction Type:Provider Instructions for Treatment How to Access Health Informa tion Online using Patient Portal and [employer] Apps Indication:Nonsmoker Start:11-May-2020 Instruction Type:Patient Education Patient Instructions Indication:Nonsmoker Start:11-May-2020 Instruction Type:Provider Instructions for Treatment How to Access Health Informa tion Online using Patient Portal and [employer] Apps Indication:BMI 40.0-44.9, adult Start:08-Feb-2020 Instruction Type:Patient Education Patient Instructions Indication:BMI 40.0-44.9, adult Start:08-Feb-2020 Instruction Type:Provider Instructions for Treatment How to access health informa tion online Indication:Nonsmoker Start:02-Nov-2019 Instruction Type:Patient Education How to access health informa tion online - Detail Indication:Nonsmoker Start:02-Nov-2019 Instruction Type:Patient Education Patient Instructions Indication:Nonsmoker Start:02-Nov-2019 Instruction Type:Provider Instructions for Treatment How to access health informa tion online Indication:Nonsmoker Start:03-Aug-2019 Instruction Type:Patient Education How to access health informa tion online - Detail Indication:Nonsmoker Start:03-Aug-2019 Instruction Type:Patient Education Patient Instructions Indication:Nonsmoker Start:03-Aug-2019 Instruction Type:Provider Instructions for Treatment How to access health informa tion online Indication:Nonsmoker Start:22-Jun-2019 Instruction Type:Patient Education How to access health informa tion online - Detail Indication:Nonsmoker Start:22-Jun-2019 Instruction Type:Patient Education Patient Instructions Indication:Nonsmoker Start:22-Jun-2019 Instruction Type:Provider Instructions for Treatment How to access health informa tion online Indication:Nonsmoker Start:01-Jun-2019 Instruction Type:Patient Education How to access health informa tion online - Detail Indication:Nonsmoker Start:01-Jun-2019 Instruction Type:Patient Education Patient Instructions Indication:Nonsmoker Start:01-Jun-2019 Instruction Type:Provider Instructions for Treatment How to access health informa tion online Indication:HTN (hypertension), benign Start:04-May-2019 Instruction Type:Patient Education How to access health informa tion online - Detail Indication:HTN (hypertension), benign Start:04-May-2019 Instruction Type:Patient Education Patient Instructions Indication:HTN (hypertension), benign Start:04-May-2019 Instruction Type:Provider Instructions for Treatment obesity counseling Indication:Abnormal glucose tolerance test (Renamed from Abnormal glucose tolerance test (GTT)) Start:04-Apr-2019 Instruction Type:Provider Instructions for Treatment How to access health informa tion online Indication:Nonsmoker Start:04-Apr-2019 Instruction Type:Patient Education How to access health informa tion online - Detail Indication:Nonsmoker Start:04-Apr-2019 Instruction Type:Patient Education Patient Instructions Indication:Nonsmoker Start:04-Apr-2019 Instruction Type:Provider Instructions for Treatment How to access health informa tion online Indication:Cellulitis of groin Start:15-Sep-2016 Instruction Type:Patient Education How to access health informa tion online - Detail Indication:Cellulitis of groin Start:15-Sep-2016 Instruction Type:Patient Education Patient Instructions Indication:Cellulitis of groin Start:15-Sep-2016 Instruction Type:Provider Instructions for Treatment How to access health informa tion online Indication:Cellulitis of groin Start:09-Sep-2016 Instruction Type:Patient Education How to access health informa tion online - Detail Indication:Cellulitis of groin Start:09-Sep-2016 Instruction Type:Patient Education Patient Instructions Indication:Cellulitis of groin Start:09-Sep-2016 Instruction Type:Provider Instructions for Treatment [facility]; [facility] Work Phone: Instructions* Name Dates Details Patient Instructions Indication:BMI 40.0-44.9, adult Start:13-Sep-2020 Instruction Type:Provider Instructions for Treatment How to Access Health Informa tion Online using Patient Portal and [employer] Apps Indication:BMI 40.0-44.9, adult Start:13-Sep-2020 Instruction Type:Patient Education Patient Instructions Indication:Nonsmoker Start:22-Aug-2020 Instruction Type:Provider Instructions for Treatment How to Access Health Informa tion Online using Patient Portal and [employer] Apps Indication:Nonsmoker Start:22-Aug-2020 Instruction Type:Patient Education How to Access Health Informa tion Online using Patient Portal and [employer] Apps Indication:Nonsmoker Start:08-Jun-2020 Instruction Type:Patient Education Patient Instructions Indication:Nonsmoker Start:08-Jun-2020 Instruction Type:Provider Instructions for Treatment How to Access Health Informa tion Online using Patient Portal and [employer] Apps Indication:Nonsmoker Start:11-May-2020 Instruction Type:Patient Education Patient Instructions Indication:Nonsmoker Start:11-May-2020 Instruction Type:Provider Instructions for Treatment How to Access Health Informa tion Online using Patient Portal and [employer] Apps Indication:BMI 40.0-44.9, adult Start:08-Feb-2020 Instruction Type:Patient Education Patient Instructions Indication:BMI 40.0-44.9, adult Start:08-Feb-2020 Instruction Type:Provider Instructions for Treatment How to access health informa tion online Indication:Nonsmoker Start:02-Nov-2019 Instruction Type:Patient Education How to access health informa tion online - Detail Indication:Nonsmoker Start:02-Nov-2019 Instruction Type:Patient Education Patient Instructions Indication:Nonsmoker Start:02-Nov-2019 Instruction Type:Provider Instructions for Treatment How to access health informa tion online Indication:Nonsmoker Start:03-Aug-2019 Instruction Type:Patient Education How to access health informa tion online - Detail Indication:Nonsmoker Start:03-Aug-2019 Instruction Type:Patient Education Patient Instructions Indication:Nonsmoker Start:03-Aug-2019 Instruction Type:Provider Instructions for Treatment How to access health informa tion online Indication:Nonsmoker Start:22-Jun-2019 Instruction Type:Patient Education How to access health informa tion online - Detail Indication:Nonsmoker Start:22-Jun-2019 Instruction Type:Patient Education Patient Instructions Indication:Nonsmoker Start:22-Jun-2019 Instruction Type:Provider Instructions for Treatment How to access health informa tion online Indication:Nonsmoker Start:01-Jun-2019 Instruction Type:Patient Education How to access health informa tion online - Detail Indication:Nonsmoker Start:01-Jun-2019 Instruction Type:Patient Education Patient Instructions Indication:Nonsmoker Start:01-Jun-2019 Instruction Type:Provider Instructions for Treatment How to access health informa tion online Indication:HTN (hypertension), benign Start:04-May-2019 Instruction Type:Patient Education How to access health informa tion online - Detail Indication:HTN (hypertension), benign Start:04-May-2019 Instruction Type:Patient Education Patient Instructions Indication:HTN (hypertension), benign Start:04-May-2019 Instruction Type:Provider Instructions for Treatment obesity counseling Indication:Abnormal glucose tolerance test (Renamed from Abnormal glucose tolerance test (GTT)) Start:04-Apr-2019 Instruction Type:Provider Instructions for Treatment How to access health informa tion online Indication:Nonsmoker Start:04-Apr-2019 Instruction Type:Patient Education How to access health informa tion online - Detail Indication:Nonsmoker Start:04-Apr-2019 Instruction Type:Patient Education Patient Instructions Indication:Nonsmoker Start:04-Apr-2019 Instruction Type:Provider Instructions for Treatment How to access health informa tion online Indication:Cellulitis of groin Start:15-Sep-2016 Instruction Type:Patient Education How to access health informa tion online - Detail Indication:Cellulitis of groin Start:15-Sep-2016 Instruction Type:Patient Education Patient Instructions Indication:Cellulitis of groin Start:15-Sep-2016 Instruction Type:Provider Instructions for Treatment How to access health informa tion online Indication:Cellulitis of groin Start:09-Sep-2016 Instruction Type:Patient Education How to access health informa tion online - Detail Indication:Cellulitis of groin Start:09-Sep-2016 Instruction Type:Patient Education Patient Instructions Indication:Cellulitis of groin Start:09-Sep-2016 Instruction Type:Provider Instructions for Treatment [facility]; [facility] Work Phone: Instructions* Name Dates Details Patient Instructions Indication:BMI 36.0-36.9,adult Start:13-Feb-2021 Instruction Type:Provider Instructions for Treatment How to Access Health Informa tion Online using Patient Portal and [employer] Apps Indication:BMI 36.0-36.9,adult Start:13-Feb-2021 Instruction Type:Patient Education Patient Instructions Indication:BMI 40.0-44.9, adult Start:21-Nov-2020 Instruction Type:Provider Instructions for Treatment How to Access Health Informa tion Online using Patient Portal and [employer] Apps Indication:BMI 40.0-44.9, adult Start:21-Nov-2020 Instruction Type:Patient Education Patient Instructions Indication:BMI 40.0-44.9, adult Start:10-Oct-2020 Instruction Type:Provider Instructions for Treatment How to Access Health Informa tion Online using Patient Portal and [employer] Apps Indication:BMI 40.0-44.9, adult Start:10-Oct-2020 Instruction Type:Patient Education Patient Instructions Indication:BMI 40.0-44.9, adult Start:13-Sep-2020 Instruction Type:Provider Instructions for Treatment How to Access Health Informa tion Online using Patient Portal and [employer] Apps Indication:BMI 40.0-44.9, adult Start:13-Sep-2020 Instruction Type:Patient Education Patient Instructions Indication:Nonsmoker Start:22-Aug-2020 Instruction Type:Provider Instructions for Treatment How to Access Health Informa tion Online using Patient Portal and [employer] Apps Indication:Nonsmoker Start:22-Aug-2020 Instruction Type:Patient Education How to Access Health Informa tion Online using Patient Portal and [employer] Apps Indication:Nonsmoker Start:08-Jun-2020 Instruction Type:Patient Education Patient Instructions Indication:Nonsmoker Start:08-Jun-2020 Instruction Type:Provider Instructions for Treatment How to Access Health Informa tion Online using Patient Portal and [employer] Apps Indication:Nonsmoker Start:11-May-2020 Instruction Type:Patient Education Patient Instructions Indication:Nonsmoker Start:11-May-2020 Instruction Type:Provider Instructions for Treatment How to Access Health Informa tion Online using Patient Portal and [employer] Apps Indication:BMI 40.0-44.9, adult Start:08-Feb-2020 Instruction Type:Patient Education Patient Instructions Indication:BMI 40.0-44.9, adult Start:08-Feb-2020 Instruction Type:Provider Instructions for Treatment How to access health informa tion online Indication:Nonsmoker Start:02-Nov-2019 Instruction Type:Patient Education How to access health informa tion online - Detail Indication:Nonsmoker Start:02-Nov-2019 Instruction Type:Patient Education Patient Instructions Indication:Nonsmoker Start:02-Nov-2019 Instruction Type:Provider Instructions for Treatment How to access health informa tion online Indication:Nonsmoker Start:03-Aug-2019 Instruction Type:Patient Education How to access health informa tion online - Detail Indication:Nonsmoker Start:03-Aug-2019 Instruction Type:Patient Education Patient Instructions Indication:Nonsmoker Start:03-Aug-2019 Instruction Type:Provider Instructions for Treatment How to access health informa tion online Indication:Nonsmoker Start:22-Jun-2019 Instruction Type:Patient Education How to access health informa tion online - Detail Indication:Nonsmoker Start:22-Jun-2019 Instruction Type:Patient Education Patient Instructions Indication:Nonsmoker Start:22-Jun-2019 Instruction Type:Provider Instructions for Treatment How to access health informa tion online Indication:Nonsmoker Start:01-Jun-2019 Instruction Type:Patient Education How to access health informa tion online - Detail Indication:Nonsmoker Start:01-Jun-2019 Instruction Type:Patient Education Patient Instructions Indication:Nonsmoker Start:01-Jun-2019 Instruction Type:Provider Instructions for Treatment How to access health informa tion online Indication:HTN (hypertension), benign Start:04-May-2019 Instruction Type:Patient Education How to access health informa tion online - Detail Indication:HTN (hypertension), benign Start:04-May-2019 Instruction Type:Patient Education Patient Instructions Indication:HTN (hypertension), benign Start:04-May-2019 Instruction Type:Provider Instructions for Treatment obesity counseling Indication:Abnormal glucose tolerance test (Renamed from Abnormal glucose tolerance test (GTT)) Start:04-Apr-2019 Instruction Type:Provider Instructions for Treatment How to access health informa tion online Indication:Nonsmoker Start:04-Apr-2019 Instruction Type:Patient Education How to access health informa tion online - Detail Indication:Nonsmoker Start:04-Apr-2019 Instruction Type:Patient Education Patient Instructions Indication:Nonsmoker Start:04-Apr-2019 Instruction Type:Provider Instructions for Treatment How to access health informa tion online Indication:Cellulitis of groin Start:15-Sep-2016 Instruction Type:Patient Education How to access health informa tion online - Detail Indication:Cellulitis of groin Start:15-Sep-2016 Instruction Type:Patient Education Patient Instructions Indication:Cellulitis of groin Start:15-Sep-2016 Instruction Type:Provider Instructions for Treatment How to access health informa tion online Indication:Cellulitis of groin Start:09-Sep-2016 Instruction Type:Patient Education How to access health informa tion online - Detail Indication:Cellulitis of groin Start:09-Sep-2016 Instruction Type:Patient Education Patient Instructions Indication:Cellulitis of groin Start:09-Sep-2016 Instruction Type:Provider Instructions for Treatment [facility]; [facility] Work Phone: Instructions* Name Dates Details obesity counseling Indication:Type II diabetes mellitus, well controlled Start:17-Jun-2021 Instruction Type:Provider Instructions for Treatment Patient Instructions Indication:Nonsmoker Start:17-Jun-2021 Instruction Type:Provider Instructions for Treatment How to Access Health Informa tion Online using Patient Portal and [employer] Apps Indication:Nonsmoker Start:17-Jun-2021 Instruction Type:Patient Education Patient Instructions Indication:BMI 40.0-44.9, adult Start:16-May-2021 Instruction Type:Provider Instructions for Treatment How to Access Health Informa tion Online using Patient Portal and [employer] Indication:BMI 40.0-44.9, adult Start:16-May-2021 Instruction Type:Patient Education Patient Instructions Indication:BMI 36.0-36.9,adult Start:13-Feb-2021 Instruction Type:Provider Instructions for Treatment How to Access Health Informa tion Online using Patient Portal and [employer] Apps Indication:BMI 36.0-36.9,adult Start:13-Feb-2021 Instruction Type:Patient Education Patient Instructions Indication:BMI 40.0-44.9, adult Start:21-Nov-2020 Instruction Type:Provider Instructions for Treatment How to Access Health Informa tion Online using Patient Portal and [employer] Apps Indication:BMI 40.0-44.9, adult Start:21-Nov-2020 Instruction Type:Patient Education Patient Instructions Indication:BMI 40.0-44.9, adult Start:10-Oct-2020 Instruction Type:Provider Instructions for Treatment How to Access Health Informa tion Online using Patient Portal and [employer] Apps Indication:BMI 40.0-44.9, adult Start:10-Oct-2020 Instruction Type:Patient Education Patient Instructions Indication:BMI 40.0-44.9, adult Start:13-Sep-2020 Instruction Type:Provider Instructions for Treatment How to Access Health Informa tion Online using Patient Portal and [employer] Apps Indication:BMI 40.0-44.9, adult Start:13-Sep-2020 Instruction Type:Patient Education Patient Instructions Indication:Nonsmoker Start:22-Aug-2020 Instruction Type:Provider Instructions for Treatment How to Access Health Informa tion Online using Patient Portal and [employer] Indication:Nonsmoker Start:22-Aug-2020 Instruction Type:Patient Education How to Access Health Informa tion Online using Patient Portal and [employer] Apps Indication:Nonsmoker Start:08-Jun-2020 Instruction Type:Patient Education Patient Instructions Indication:Nonsmoker Start:08-Jun-2020 Instruction Type:Provider Instructions for Treatment How to Access Health Informa tion Online using Patient Portal and [employer] Apps Indication:Nonsmoker Start:11-May-2020 Instruction Type:Patient Education Patient Instructions Indication:Nonsmoker Start:11-May-2020 Instruction Type:Provider Instructions for Treatment How to Access Health Informa tion Online using Patient Portal and [employer] Apps Indication:BMI 40.0-44.9, adult Start:08-Feb-2020 Instruction Type:Patient Education Patient Instructions Indication:BMI 40.0-44.9, adult Start:08-Feb-2020 Instruction Type:Provider Instructions for Treatment How to access health informa tion online Indication:Nonsmoker Start:02-Nov-2019 Instruction Type:Patient Education How to access health informa tion online - Detail Indication:Nonsmoker Start:02-Nov-2019 Instruction Type:Patient Education Patient Instructions Indication:Nonsmoker Start:02-Nov-2019 Instruction Type:Provider Instructions for Treatment How to access health informa tion online Indication:Nonsmoker Start:03-Aug-2019 Instruction Type:Patient Education How to access health informa tion online - Detail Indication:Nonsmoker Start:03-Aug-2019 Instruction Type:Patient Education Patient Instructions Indication:Nonsmoker Start:03-Aug-2019 Instruction Type:Provider Instructions for Treatment How to access health informa tion online Indication:Nonsmoker Start:22-Jun-2019 Instruction Type:Patient Education How to access health informa tion online - Detail Indication:Nonsmoker Start:22-Jun-2019 Instruction Type:Patient Education Patient Instructions Indication:Nonsmoker Start:22-Jun-2019 Instruction Type:Provider Instructions for Treatment How to access health informa tion online Indication:Nonsmoker Start:01-Jun-2019 Instruction Type:Patient Education How to access health informa tion online - Detail Indication:Nonsmoker Start:01-Jun-2019 Instruction Type:Patient Education Patient Instructions Indication:Nonsmoker Start:01-Jun-2019 Instruction Type:Provider Instructions for Treatment How to access health informa tion online Indication:HTN (hypertension), benign Start:04-May-2019 Instruction Type:Patient Education How to access health informa tion online - Detail Indication:HTN (hypertension), benign Start:04-May-2019 Instruction Type:Patient Education Patient Instructions Indication:HTN (hypertension), benign Start:04-May-2019 Instruction Type:Provider Instructions for Treatment obesity counseling Indication:Abnormal glucose tolerance test (Renamed from Abnormal glucose tolerance test (GTT)) Start:04-Apr-2019 Instruction Type:Provider Instructions for Treatment How to access health informa tion online Indication:Nonsmoker Start:04-Apr-2019 Instruction Type:Patient Education How to access health informa tion online - Detail Indication:Nonsmoker Start:04-Apr-2019 Instruction Type:Patient Education Patient Instructions Indication:Nonsmoker Start:04-Apr-2019 Instruction Type:Provider Instructions for Treatment How to access health informa tion online Indication:Cellulitis of groin Start:15-Sep-2016 Instruction Type:Patient Education How to access health informa tion online - Detail Indication:Cellulitis of groin Start:15-Sep-2016 Instruction Type:Patient Education Patient Instructions Indication:Cellulitis of groin Start:15-Sep-2016 Instruction Type:Provider Instructions for Treatment How to access health informa tion online Indication:Cellulitis of groin Start:09-Sep-2016 Instruction Type:Patient Education How to access health informa tion online - Detail Indication:Cellulitis of groin Start:09-Sep-2016 Instruction Type:Patient Education Patient Instructions Indication:Cellulitis of groin Start:09-Sep-2016 Instruction Type:Provider Instructions for Treatment [facility]; [facility] Work Phone: Instructions* Name Dates Details Patient Instructions Indication:Nonsmoker Start:10-Jul-2021 Instruction Type:Provider Instructions for Treatment How to Access Health Informa tion Online using Patient Portal and [employer] Apps Indication:Nonsmoker Start:10-Jul-2021 Instruction Type:Patient Education obesity counseling Indication:Type II diabetes mellitus, well controlled Start:17-Jun-2021 Instruction Type:Provider Instructions for Treatment Patient Instructions Indication:Nonsmoker Start:17-Jun-2021 Instruction Type:Provider Instructions for Treatment How to Access Health Informa tion Online using Patient Portal and [employer] Apps Indication:Nonsmoker Start:17-Jun-2021 Instruction Type:Patient Education Patient Instructions Indication:BMI 40.0-44.9, adult Start:16-May-2021 Instruction Type:Provider Instructions for Treatment How to Access Health Informa tion Online using Patient Portal and [employer] Apps Indication:BMI 40.0-44.9, adult Start:16-May-2021 Instruction Type:Patient Education Patient Instructions Indication:BMI 36.0-36.9,adult Start:13-Feb-2021 Instruction Type:Provider Instructions for Treatment How to Access Health Informa tion Online using Patient Portal and [employer] Apps Indication:BMI 36.0-36.9,adult Start:13-Feb-2021 Instruction Type:Patient Education Patient Instructions Indication:BMI 40.0-44.9, adult Start:21-Nov-2020 Instruction Type:Provider Instructions for Treatment How to Access Health Informa tion Online using Patient Portal and [employer] Apps Indication:BMI 40.0-44.9, adult Start:21-Nov-2020 Instruction Type:Patient Education Patient Instructions Indication:BMI 40.0-44.9, adult Start:10-Oct-2020 Instruction Type:Provider Instructions for Treatment How to Access Health Informa tion Online using Patient Portal and [employer] Apps Indication:BMI 40.0-44.9, adult Start:10-Oct-2020 Instruction Type:Patient Education Patient Instructions Indication:BMI 40.0-44.9, adult Start:13-Sep-2020 Instruction Type:Provider Instructions for Treatment How to Access Health Informa tion Online using Patient Portal and [employer] Apps Indication:BMI 40.0-44.9, adult Start:13-Sep-2020 Instruction Type:Patient Education Patient Instructions Indication:Nonsmoker Start:22-Aug-2020 Instruction Type:Provider Instructions for Treatment How to Access Health Informa tion Online using Patient Portal and [employer] Apps Indication:Nonsmoker Start:22-Aug-2020 Instruction Type:Patient Education How to Access Health Informa tion Online using Patient Portal and [employer] Apps Indication:Nonsmoker Start:08-Jun-2020 Instruction Type:Patient Education Patient Instructions Indication:Nonsmoker Start:08-Jun-2020 Instruction Type:Provider Instructions for Treatment How to Access Health Informa tion Online using Patient Portal and [employer] Apps Indication:Nonsmoker Start:11-May-2020 Instruction Type:Patient Education Patient Instructions Indication:Nonsmoker Start:11-May-2020 Instruction Type:Provider Instructions for Treatment How to Access Health Informa tion Online using Patient Portal and [employer] Apps Indication:BMI 40.0-44.9, adult Start:08-Feb-2020 Instruction Type:Patient Education Patient Instructions Indication:BMI 40.0-44.9, adult Start:08-Feb-2020 Instruction Type:Provider Instructions for Treatment How to access health informa tion online Indication:Nonsmoker Start:02-Nov-2019 Instruction Type:Patient Education How to access health informa tion online - Detail Indication:Nonsmoker Start:02-Nov-2019 Instruction Type:Patient Education Patient Instructions Indication:Nonsmoker Start:02-Nov-2019 Instruction Type:Provider Instructions for Treatment How to access health informa tion online Indication:Nonsmoker Start:03-Aug-2019 Instruction Type:Patient Education How to access health informa tion online - Detail Indication:Nonsmoker Start:03-Aug-2019 Instruction Type:Patient Education Patient Instructions Indication:Nonsmoker Start:03-Aug-2019 Instruction Type:Provider Instructions for Treatment How to access health informa tion online Indication:Nonsmoker Start:22-Jun-2019 Instruction Type:Patient Education How to access health informa tion online - Detail Indication:Nonsmoker Start:22-Jun-2019 Instruction Type:Patient Education Patient Instructions Indication:Nonsmoker Start:22-Jun-2019 Instruction Type:Provider Instructions for Treatment How to access health informa tion online Indication:Nonsmoker Start:01-Jun-2019 Instruction Type:Patient Education How to access health informa tion online - Detail Indication:Nonsmoker Start:01-Jun-2019 Instruction Type:Patient Education Patient Instructions Indication:Nonsmoker Start:01-Jun-2019 Instruction Type:Provider Instructions for Treatment How to access health informa tion online Indication:HTN (hypertension), benign Start:04-May-2019 Instruction Type:Patient Education How to access health informa tion online - Detail Indication:HTN (hypertension), benign Start:04-May-2019 Instruction Type:Patient Education Patient Instructions Indication:HTN (hypertension), benign Start:04-May-2019 Instruction Type:Provider Instructions for Treatment obesity counseling Indication:Abnormal glucose tolerance test (Renamed from Abnormal glucose tolerance test (GTT)) Start:04-Apr-2019 Instruction Type:Provider Instructions for Treatment How to access health informa tion online Indication:Nonsmoker Start:04-Apr-2019 Instruction Type:Patient Education How to access health informa tion online - Detail Indication:Nonsmoker Start:04-Apr-2019 Instruction Type:Patient Education Patient Instructions Indication:Nonsmoker Start:04-Apr-2019 Instruction Type:Provider Instructions for Treatment How to access health informa tion online Indication:Cellulitis of groin Start:15-Sep-2016 Instruction Type:Patient Education How to access health informa tion online - Detail Indication:Cellulitis of groin Start:15-Sep-2016 Instruction Type:Patient Education Patient Instructions Indication:Cellulitis of groin Start:15-Sep-2016 Instruction Type:Provider Instructions for Treatment How to access health informa tion online Indication:Cellulitis of groin Start:09-Sep-2016 Instruction Type:Patient Education How to access health informa tion online - Detail Indication:Cellulitis of groin Start:09-Sep-2016 Instruction Type:Patient Education Patient Instructions Indication:Cellulitis of groin Start:09-Sep-2016 Instruction Type:Provider Instructions for Treatment [facility]; [facility] Work Phone: Instructions* Name Dates Details Patient Instructions Indication:Type II diabetes mellitus, well controlled Start:05-Sep-2021 Instruction Type:Provider Instructions for Treatment How to Access Health Informa tion Online using Patient Portal and [employer] Apps Indication:Type II diabetes mellitus, well controlled Start:05-Sep-2021 Instruction Type:Patient Education Patient Instructions Indication:Nonsmoker Start:10-Jul-2021 Instruction Type:Provider Instructions for Treatment How to Access Health Informa tion Online using Patient Portal and [employer] Apps Indication:Nonsmoker Start:10-Jul-2021 Instruction Type:Patient Education obesity counseling Indication:Type II diabetes mellitus, well controlled Start:17-Jun-2021 Instruction Type:Provider Instructions for Treatment Patient Instructions Indication:Nonsmoker Start:17-Jun-2021 Instruction Type:Provider Instructions for Treatment How to Access Health Informa tion Online using Patient Portal and [employer] Apps Indication:Nonsmoker Start:17-Jun-2021 Instruction Type:Patient Education Patient Instructions Indication:BMI 40.0-44.9, adult Start:16-May-2021 Instruction Type:Provider Instructions for Treatment How to Access Health Informa tion Online using Patient Portal and [employer] Apps Indication:BMI 40.0-44.9, adult Start:16-May-2021 Instruction Type:Patient Education Patient Instructions Indication:BMI 36.0-36.9,adult Start:13-Feb-2021 Instruction Type:Provider Instructions for Treatment How to Access Health Informa tion Online using Patient Portal and [employer] Apps Indication:BMI 36.0-36.9,adult Start:13-Feb-2021 Instruction Type:Patient Education Patient Instructions Indication:BMI 40.0-44.9, adult Start:21-Nov-2020 Instruction Type:Provider Instructions for Treatment How to Access Health Informa tion Online using Patient Portal and [employer] Apps Indication:BMI 40.0-44.9, adult Start:21-Nov-2020 Instruction Type:Patient Education Patient Instructions Indication:BMI 40.0-44.9, adult Start:10-Oct-2020 Instruction Type:Provider Instructions for Treatment How to Access Health Informa tion Online using Patient Portal and [employer] Apps Indication:BMI 40.0-44.9, adult Start:10-Oct-2020 Instruction Type:Patient Education Patient Instructions Indication:BMI 40.0-44.9, adult Start:13-Sep-2020 Instruction Type:Provider Instructions for Treatment How to Access Health Informa tion Online using Patient Portal and [employer] Apps Indication:BMI 40.0-44.9, adult Start:13-Sep-2020 Instruction Type:Patient Education Patient Instructions Indication:Nonsmoker Start:22-Aug-2020 Instruction Type:Provider Instructions for Treatment How to Access Health Informa tion Online using Patient Portal and [employer] Apps Indication:Nonsmoker Start:22-Aug-2020 Instruction Type:Patient Education How to Access Health Informa tion Online using Patient Portal and [employer] Apps Indication:Nonsmoker Start:08-Jun-2020 Instruction Type:Patient Education Patient Instructions Indication:Nonsmoker Start:08-Jun-2020 Instruction Type:Provider Instructions for Treatment How to Access Health Informa tion Online using Patient Portal and [employer] Apps Indication:Nonsmoker Start:11-May-2020 Instruction Type:Patient Education Patient Instructions Indication:Nonsmoker Start:11-May-2020 Instruction Type:Provider Instructions for Treatment How to Access Health Informa tion Online using Patient Portal and [employer] Apps Indication:BMI 40.0-44.9, adult Start:08-Feb-2020 Instruction Type:Patient Education Patient Instructions Indication:BMI 40.0-44.9, adult Start:08-Feb-2020 Instruction Type:Provider Instructions for Treatment How to access health informa tion online Indication:Nonsmoker Start:02-Nov-2019 Instruction Type:Patient Education How to access health informa tion online - Detail Indication:Nonsmoker Start:02-Nov-2019 Instruction Type:Patient Education Patient Instructions Indication:Nonsmoker Start:02-Nov-2019 Instruction Type:Provider Instructions for Treatment How to access health informa tion online Indication:Nonsmoker Start:03-Aug-2019 Instruction Type:Patient Education How to access health informa tion online - Detail Indication:Nonsmoker Start:03-Aug-2019 Instruction Type:Patient Education Patient Instructions Indication:Nonsmoker Start:03-Aug-2019 Instruction Type:Provider Instructions for Treatment How to access health informa tion online Indication:Nonsmoker Start:22-Jun-2019 Instruction Type:Patient Education How to access health informa tion online - Detail Indication:Nonsmoker Start:22-Jun-2019 Instruction Type:Patient Education Patient Instructions Indication:Nonsmoker Start:22-Jun-2019 Instruction Type:Provider Instructions for Treatment How to access health informa tion online Indication:Nonsmoker Start:01-Jun-2019 Instruction Type:Patient Education How to access health informa tion online - Detail Indication:Nonsmoker Start:01-Jun-2019 Instruction Type:Patient Education Patient Instructions Indication:Nonsmoker Start:01-Jun-2019 Instruction Type:Provider Instructions for Treatment How to access health informa tion online Indication:HTN (hypertension), benign Start:04-May-2019 Instruction Type:Patient Education How to access health informa tion online - Detail Indication:HTN (hypertension), benign Start:04-May-2019 Instruction Type:Patient Education Patient Instructions Indication:HTN (hypertension), benign Start:04-May-2019 Instruction Type:Provider Instructions for Treatment obesity counseling Indication:Abnormal glucose tolerance test (Renamed from Abnormal glucose tolerance test (GTT)) Start:04-Apr-2019 Instruction Type:Provider Instructions for Treatment How to access health informa tion online Indication:Nonsmoker Start:04-Apr-2019 Instruction Type:Patient Education How to access health informa tion online - Detail Indication:Nonsmoker Start:04-Apr-2019 Instruction Type:Patient Education Patient Instructions Indication:Nonsmoker Start:04-Apr-2019 Instruction Type:Provider Instructions for Treatment How to access health informa tion online Indication:Cellulitis of groin Start:15-Sep-2016 Instruction Type:Patient Education How to access health informa tion online - Detail Indication:Cellulitis of groin Start:15-Sep-2016 Instruction Type:Patient Education Patient Instructions Indication:Cellulitis of groin Start:15-Sep-2016 Instruction Type:Provider Instructions for Treatment How to access health informa tion online Indication:Cellulitis of groin Start:09-Sep-2016 Instruction Type:Patient Education How to access health informa tion online - Detail Indication:Cellulitis of groin Start:09-Sep-2016 Instruction Type:Patient Education Patient Instructions Indication:Cellulitis of groin Start:09-Sep-2016 Instruction Type:Provider Instructions for Treatment [facility]; [facility] Work Phone: Instructions* Name Dates Details Patient Instructions Indication:Type II diabetes mellitus, well controlled Start:05-Sep-2021 Instruction Type:Provider Instructions for Treatment How to Access Health Informa tion Online using Patient Portal and [employer] Apps Indication:Type II diabetes mellitus, well controlled Start:05-Sep-2021 Instruction Type:Patient Education Patient Instructions Indication:Nonsmoker Start:10-Jul-2021 Instruction Type:Provider Instructions for Treatment How to Access Health Informa tion Online using Patient Portal and [employer] Apps Indication:Nonsmoker Start:10-Jul-2021 Instruction Type:Patient Education obesity counseling Indication:Type II diabetes mellitus, well controlled Start:17-Jun-2021 Instruction Type:Provider Instructions for Treatment Patient Instructions Indication:Nonsmoker Start:17-Jun-2021 Instruction Type:Provider Instructions for Treatment How to Access Health Informa tion Online using Patient Portal and [employer] Apps Indication:Nonsmoker Start:17-Jun-2021 Instruction Type:Patient Education Patient Instructions Indication:BMI 40.0-44.9, adult Start:16-May-2021 Instruction Type:Provider Instructions for Treatment How to Access Health Informa tion Online using Patient Portal and [employer] Apps Indication:BMI 40.0-44.9, adult Start:16-May-2021 Instruction Type:Patient Education Patient Instructions Indication:BMI 36.0-36.9,adult Start:13-Feb-2021 Instruction Type:Provider Instructions for Treatment How to Access Health Informa tion Online using Patient Portal and [employer] Apps Indication:BMI 36.0-36.9,adult Start:13-Feb-2021 Instruction Type:Patient Education Patient Instructions Indication:BMI 40.0-44.9, adult Start:21-Nov-2020 Instruction Type:Provider Instructions for Treatment How to Access Health Informa tion Online using Patient Portal and [employer] Apps Indication:BMI 40.0-44.9, adult Start:21-Nov-2020 Instruction Type:Patient Education Patient Instructions Indication:BMI 40.0-44.9, adult Start:10-Oct-2020 Instruction Type:Provider Instructions for Treatment How to Access Health Informa tion Online using Patient Portal and [employer] Apps Indication:BMI 40.0-44.9, adult Start:10-Oct-2020 Instruction Type:Patient Education Patient Instructions Indication:BMI 40.0-44.9, adult Start:13-Sep-2020 Instruction Type:Provider Instructions for Treatment How to Access Health Informa tion Online using Patient Portal and [employer] Apps Indication:BMI 40.0-44.9, adult Start:13-Sep-2020 Instruction Type:Patient Education Patient Instructions Indication:Nonsmoker Start:22-Aug-2020 Instruction Type:Provider Instructions for Treatment How to Access Health Informa tion Online using Patient Portal and [employer] Apps Indication:Nonsmoker Start:22-Aug-2020 Instruction Type:Patient Education How to Access Health Informa tion Online using Patient Portal and [employer] Apps Indication:Nonsmoker Start:08-Jun-2020 Instruction Type:Patient Education Patient Instructions Indication:Nonsmoker Start:08-Jun-2020 Instruction Type:Provider Instructions for Treatment How to Access Health Informa tion Online using Patient Portal and [employer] Apps Indication:Nonsmoker Start:11-May-2020 Instruction Type:Patient Education Patient Instructions Indication:Nonsmoker Start:11-May-2020 Instruction Type:Provider Instructions for Treatment How to Access Health Informa tion Online using Patient Portal and [employer] Apps Indication:BMI 40.0-44.9, adult Start:08-Feb-2020 Instruction Type:Patient Education Patient Instructions Indication:BMI 40.0-44.9, adult Start:08-Feb-2020 Instruction Type:Provider Instructions for Treatment How to access health informa tion online Indication:Nonsmoker Start:02-Nov-2019 Instruction Type:Patient Education How to access health informa tion online - Detail Indication:Nonsmoker Start:02-Nov-2019 Instruction Type:Patient Education Patient Instructions Indication:Nonsmoker Start:02-Nov-2019 Instruction Type:Provider Instructions for Treatment How to access health informa tion online Indication:Nonsmoker Start:03-Aug-2019 Instruction Type:Patient Education How to access health informa tion online - Detail Indication:Nonsmoker Start:03-Aug-2019 Instruction Type:Patient Education Patient Instructions Indication:Nonsmoker Start:03-Aug-2019 Instruction Type:Provider Instructions for Treatment How to access health informa tion online Indication:Nonsmoker Start:22-Jun-2019 Instruction Type:Patient Education How to access health informa tion online - Detail Indication:Nonsmoker Start:22-Jun-2019 Instruction Type:Patient Education Patient Instructions Indication:Nonsmoker Start:22-Jun-2019 Instruction Type:Provider Instructions for Treatment How to access health informa tion online Indication:Nonsmoker Start:01-Jun-2019 Instruction Type:Patient Education How to access health informa tion online - Detail Indication:Nonsmoker Start:01-Jun-2019 Instruction Type:Patient Education Patient Instructions Indication:Nonsmoker Start:01-Jun-2019 Instruction Type:Provider Instructions for Treatment How to access health informa tion online Indication:HTN (hypertension), benign Start:04-May-2019 Instruction Type:Patient Education How to access health informa tion online - Detail Indication:HTN (hypertension), benign Start:04-May-2019 Instruction Type:Patient Education Patient Instructions Indication:HTN (hypertension), benign Start:04-May-2019 Instruction Type:Provider Instructions for Treatment obesity counseling Indication:Abnormal glucose tolerance test (Renamed from Abnormal glucose tolerance test (GTT)) Start:04-Apr-2019 Instruction Type:Provider Instructions for Treatment How to access health informa tion online Indication:Nonsmoker Start:04-Apr-2019 Instruction Type:Patient Education How to access health informa tion online - Detail Indication:Nonsmoker Start:04-Apr-2019 Instruction Type:Patient Education Patient Instructions Indication:Nonsmoker Start:04-Apr-2019 Instruction Type:Provider Instructions for Treatment How to access health informa tion online Indication:Cellulitis of groin Start:15-Sep-2016 Instruction Type:Patient Education How to access health informa tion online - Detail Indication:Cellulitis of groin Start:15-Sep-2016 Instruction Type:Patient Education Patient Instructions Indication:Cellulitis of groin Start:15-Sep-2016 Instruction Type:Provider Instructions for Treatment How to access health informa tion online Indication:Cellulitis of groin Start:09-Sep-2016 Instruction Type:Patient Education How to access health informa tion online - Detail Indication:Cellulitis of groin Start:09-Sep-2016 Instruction Type:Patient Education Patient Instructions Indication:Cellulitis of groin Start:09-Sep-2016 Instruction Type:Provider Instructions for Treatment [facility]; [facility] Work Phone: Instructions* Name Dates Details Patient Instructions Indication:BMI 40.0-44.9, adult Start:11-Dec-2021 Instruction Type:Provider Instructions for Treatment How to Access Health Informa tion Online using Patient Portal and [employer] Apps Indication:BMI 40.0-44.9, adult Start:11-Dec-2021 Instruction Type:Patient Education Patient Instructions Indication:Type II diabetes mellitus, well controlled Start:05-Sep-2021 Instruction Type:Provider Instructions for Treatment How to Access Health Informa tion Online using Patient Portal and [employer] Apps Indication:Type II diabetes mellitus, well controlled Start:05-Sep-2021 Instruction Type:Patient Education Patient Instructions Indication:Nonsmoker Start:10-Jul-2021 Instruction Type:Provider Instructions for Treatment How to Access Health Informa tion Online using Patient Portal and [employer] Apps Indication:Nonsmoker Start:10-Jul-2021 Instruction Type:Patient Education obesity counseling Indication:Type II diabetes mellitus, well controlled Start:17-Jun-2021 Instruction Type:Provider Instructions for Treatment Patient Instructions Indication:Nonsmoker Start:17-Jun-2021 Instruction Type:Provider Instructions for Treatment How to Access Health Informa tion Online using Patient Portal and [employer] Apps Indication:Nonsmoker Start:17-Jun-2021 Instruction Type:Patient Education Patient Instructions Indication:BMI 40.0-44.9, adult Start:16-May-2021 Instruction Type:Provider Instructions for Treatment How to Access Health Informa tion Online using Patient Portal and [employer] Apps Indication:BMI 40.0-44.9, adult Start:16-May-2021 Instruction Type:Patient Education Patient Instructions Indication:BMI 36.0-36.9,adult Start:13-Feb-2021 Instruction Type:Provider Instructions for Treatment How to Access Health Informa tion Online using Patient Portal and [employer] Indication:BMI 36.0-36.9,adult Start:13-Feb-2021 Instruction Type:Patient Education Patient Instructions Indication:BMI 40.0-44.9, adult Start:21-Nov-2020 Instruction Type:Provider Instructions for Treatment How to Access Health Informa tion Online using Patient Portal and [employer] Apps Indication:BMI 40.0-44.9, adult Start:21-Nov-2020 Instruction Type:Patient Education Patient Instructions Indication:BMI 40.0-44.9, adult Start:10-Oct-2020 Instruction Type:Provider Instructions for Treatment How to Access Health Informa tion Online using Patient Portal and [employer] Apps Indication:BMI 40.0-44.9, adult Start:10-Oct-2020 Instruction Type:Patient Education Patient Instructions Indication:BMI 40.0-44.9, adult Start:13-Sep-2020 Instruction Type:Provider Instructions for Treatment How to Access Health Informa tion Online using Patient Portal and [employer] Apps Indication:BMI 40.0-44.9, adult Start:13-Sep-2020 Instruction Type:Patient Education Patient Instructions Indication:Nonsmoker Start:22-Aug-2020 Instruction Type:Provider Instructions for Treatment How to Access Health Informa tion Online using Patient Portal and [employer] Apps Indication:Nonsmoker Start:22-Aug-2020 Instruction Type:Patient Education How to Access Health Informa tion Online using Patient Portal and [employer] Apps Indication:Nonsmoker Start:08-Jun-2020 Instruction Type:Patient Education Patient Instructions Indication:Nonsmoker Start:08-Jun-2020 Instruction Type:Provider Instructions for Treatment How to Access Health Informa tion Online using Patient Portal and [employer] Apps Indication:Nonsmoker Start:11-May-2020 Instruction Type:Patient Education Patient Instructions Indication:Nonsmoker Start:11-May-2020 Instruction Type:Provider Instructions for Treatment How to Access Health Informa tion Online using Patient Portal and [employer] Apps Indication:BMI 40.0-44.9, adult Start:08-Feb-2020 Instruction Type:Patient Education Patient Instructions Indication:BMI 40.0-44.9, adult Start:08-Feb-2020 Instruction Type:Provider Instructions for Treatment How to access health informa tion online Indication:Nonsmoker Start:02-Nov-2019 Instruction Type:Patient Education How to access health informa tion online - Detail Indication:Nonsmoker Start:02-Nov-2019 Instruction Type:Patient Education Patient Instructions Indication:Nonsmoker Start:02-Nov-2019 Instruction Type:Provider Instructions for Treatment How to access health informa tion online Indication:Nonsmoker Start:03-Aug-2019 Instruction Type:Patient Education How to access health informa tion online - Detail Indication:Nonsmoker Start:03-Aug-2019 Instruction Type:Patient Education Patient Instructions Indication:Nonsmoker Start:03-Aug-2019 Instruction Type:Provider Instructions for Treatment How to access health informa tion online Indication:Nonsmoker Start:22-Jun-2019 Instruction Type:Patient Education How to access health informa tion online - Detail Indication:Nonsmoker Start:22-Jun-2019 Instruction Type:Patient Education Patient Instructions Indication:Nonsmoker Start:22-Jun-2019 Instruction Type:Provider Instructions for Treatment How to access health informa tion online Indication:Nonsmoker Start:01-Jun-2019 Instruction Type:Patient Education How to access health informa tion online - Detail Indication:Nonsmoker Start:01-Jun-2019 Instruction Type:Patient Education Patient Instructions Indication:Nonsmoker Start:01-Jun-2019 Instruction Type:Provider Instructions for Treatment How to access health informa tion online Indication:HTN (hypertension), benign Start:04-May-2019 Instruction Type:Patient Education How to access health informa tion online - Detail Indication:HTN (hypertension), benign Start:04-May-2019 Instruction Type:Patient Education Patient Instructions Indication:HTN (hypertension), benign Start:04-May-2019 Instruction Type:Provider Instructions for Treatment obesity counseling Indication:Abnormal glucose tolerance test (Renamed from Abnormal glucose tolerance test (GTT)) Start:04-Apr-2019 Instruction Type:Provider Instructions for Treatment How to access health informa tion online Indication:Nonsmoker Start:04-Apr-2019 Instruction Type:Patient Education How to access health informa tion online - Detail Indication:Nonsmoker Start:04-Apr-2019 Instruction Type:Patient Education Patient Instructions Indication:Nonsmoker Start:04-Apr-2019 Instruction Type:Provider Instructions for Treatment How to access health informa tion online Indication:Cellulitis of groin Start:15-Sep-2016 Instruction Type:Patient Education How to access health informa tion online - Detail Indication:Cellulitis of groin Start:15-Sep-2016 Instruction Type:Patient Education Patient Instructions Indication:Cellulitis of groin Start:15-Sep-2016 Instruction Type:Provider Instructions for Treatment How to access health informa tion online Indication:Cellulitis of groin Start:09-Sep-2016 Instruction Type:Patient Education How to access health informa tion online - Detail Indication:Cellulitis of groin Start:09-Sep-2016 Instruction Type:Patient Education Patient Instructions Indication:Cellulitis of groin Start:09-Sep-2016 Instruction Type:Provider Instructions for Treatment [facility]; [facility] Work Phone: Instructions* Name Dates Details Patient Instructions Indication:BMI 40.0-44.9, adult Start:19-Mar-2022 Instruction Type:Provider Instructions for Treatment How to Access Health Informa tion Online using Patient Portal and [employer] Apps Indication:BMI 40.0-44.9, adult Start:19-Mar-2022 Instruction Type:Patient Education Patient Instructions Indication:BMI 40.0-44.9, adult Start:11-Dec-2021 Instruction Type:Provider Instructions for Treatment How to Access Health Informa tion Online using Patient Portal and [employer] Apps Indication:BMI 40.0-44.9, adult Start:11-Dec-2021 Instruction Type:Patient Education Patient Instructions Indication:Type II diabetes mellitus, well controlled Start:05-Sep-2021 Instruction Type:Provider Instructions for Treatment How to Access Health Informa tion Online using Patient Portal and [employer] Apps Indication:Type II diabetes mellitus, well controlled Start:05-Sep-2021 Instruction Type:Patient Education Patient Instructions Indication:Nonsmoker Start:10-Jul-2021 Instruction Type:Provider Instructions for Treatment How to Access Health Informa tion Online using Patient Portal and [employer] Apps Indication:Nonsmoker Start:10-Jul-2021 Instruction Type:Patient Education obesity counseling Indication:Type II diabetes mellitus, well controlled Start:17-Jun-2021 Instruction Type:Provider Instructions for Treatment Patient Instructions Indication:Nonsmoker Start:17-Jun-2021 Instruction Type:Provider Instructions for Treatment How to Access Health Informa tion Online using Patient Portal and [employer] Apps Indication:Nonsmoker Start:17-Jun-2021 Instruction Type:Patient Education Patient Instructions Indication:BMI 40.0-44.9, adult Start:16-May-2021 Instruction Type:Provider Instructions for Treatment How to Access Health Informa tion Online using Patient Portal and [employer] Apps Indication:BMI 40.0-44.9, adult Start:16-May-2021 Instruction Type:Patient Education Patient Instructions Indication:BMI 36.0-36.9,adult Start:13-Feb-2021 Instruction Type:Provider Instructions for Treatment How to Access Health Informa tion Online using Patient Portal and [employer] Apps Indication:BMI 36.0-36.9,adult Start:13-Feb-2021 Instruction Type:Patient Education Patient Instructions Indication:BMI 40.0-44.9, adult Start:21-Nov-2020 Instruction Type:Provider Instructions for Treatment How to Access Health Informa tion Online using Patient Portal and [employer] Apps Indication:BMI 40.0-44.9, adult Start:21-Nov-2020 Instruction Type:Patient Education Patient Instructions Indication:BMI 40.0-44.9, adult Start:10-Oct-2020 Instruction Type:Provider Instructions for Treatment How to Access Health Informa tion Online using Patient Portal and [employer] Apps Indication:BMI 40.0-44.9, adult Start:10-Oct-2020 Instruction Type:Patient Education Patient Instructions Indication:BMI 40.0-44.9, adult Start:13-Sep-2020 Instruction Type:Provider Instructions for Treatment How to Access Health Informa tion Online using Patient Portal and [employer] Apps Indication:BMI 40.0-44.9, adult Start:13-Sep-2020 Instruction Type:Patient Education Patient Instructions Indication:Nonsmoker Start:22-Aug-2020 Instruction Type:Provider Instructions for Treatment How to Access Health Informa tion Online using Patient Portal and [employer] Apps Indication:Nonsmoker Start:22-Aug-2020 Instruction Type:Patient Education How to Access Health Informa tion Online using Patient Portal and [employer] Apps Indication:Nonsmoker Start:08-Jun-2020 Instruction Type:Patient Education Patient Instructions Indication:Nonsmoker Start:08-Jun-2020 Instruction Type:Provider Instructions for Treatment How to Access Health Informa tion Online using Patient Portal and [employer] Apps Indication:Nonsmoker Start:11-May-2020 Instruction Type:Patient Education Patient Instructions Indication:Nonsmoker Start:11-May-2020 Instruction Type:Provider Instructions for Treatment How to Access Health Informa tion Online using Patient Portal and [employer] Apps Indication:BMI 40.0-44.9, adult Start:08-Feb-2020 Instruction Type:Patient Education Patient Instructions Indication:BMI 40.0-44.9, adult Start:08-Feb-2020 Instruction Type:Provider Instructions for Treatment How to access health informa tion online Indication:Nonsmoker Start:02-Nov-2019 Instruction Type:Patient Education How to access health informa tion online - Detail Indication:Nonsmoker Start:02-Nov-2019 Instruction Type:Patient Education Patient Instructions Indication:Nonsmoker Start:02-Nov-2019 Instruction Type:Provider Instructions for Treatment How to access health informa tion online Indication:Nonsmoker Start:03-Aug-2019 Instruction Type:Patient Education How to access health informa tion online - Detail Indication:Nonsmoker Start:03-Aug-2019 Instruction Type:Patient Education Patient Instructions Indication:Nonsmoker Start:03-Aug-2019 Instruction Type:Provider Instructions for Treatment How to access health informa tion online Indication:Nonsmoker Start:22-Jun-2019 Instruction Type:Patient Education How to access health informa tion online - Detail Indication:Nonsmoker Start:22-Jun-2019 Instruction Type:Patient Education Patient Instructions Indication:Nonsmoker Start:22-Jun-2019 Instruction Type:Provider Instructions for Treatment How to access health informa tion online Indication:Nonsmoker Start:01-Jun-2019 Instruction Type:Patient Education How to access health informa tion online - Detail Indication:Nonsmoker Start:01-Jun-2019 Instruction Type:Patient Education Patient Instructions Indication:Nonsmoker Start:01-Jun-2019 Instruction Type:Provider Instructions for Treatment How to access health informa tion online Indication:HTN (hypertension), benign Start:04-May-2019 Instruction Type:Patient Education How to access health informa tion online - Detail Indication:HTN (hypertension), benign Start:04-May-2019 Instruction Type:Patient Education Patient Instructions Indication:HTN (hypertension), benign Start:04-May-2019 Instruction Type:Provider Instructions for Treatment obesity counseling Indication:Abnormal glucose tolerance test (Renamed from Abnormal glucose tolerance test (GTT)) Start:04-Apr-2019 Instruction Type:Provider Instructions for Treatment How to access health informa tion online Indication:Nonsmoker Start:04-Apr-2019 Instruction Type:Patient Education How to access health informa tion online - Detail Indication:Nonsmoker Start:04-Apr-2019 Instruction Type:Patient Education Patient Instructions Indication:Nonsmoker Start:04-Apr-2019 Instruction Type:Provider Instructions for Treatment How to access health informa tion online Indication:Cellulitis of groin Start:15-Sep-2016 Instruction Type:Patient Education How to access health informa tion online - Detail Indication:Cellulitis of groin Start:15-Sep-2016 Instruction Type:Patient Education Patient Instructions Indication:Cellulitis of groin Start:15-Sep-2016 Instruction Type:Provider Instructions for Treatment How to access health informa tion online Indication:Cellulitis of groin Start:09-Sep-2016 Instruction Type:Patient Education How to access health informa tion online - Detail Indication:Cellulitis of groin Start:09-Sep-2016 Instruction Type:Patient Education Patient Instructions Indication:Cellulitis of groin Start:09-Sep-2016 Instruction Type:Provider Instructions for Treatment [facility]; [facility] Work Phone: Instructions* Name Dates Details Patient Instructions Indication:BMI 40.0-44.9, adult Start:19-Mar-2022 Instruction Type:Provider Instructions for Treatment How to Access Health Informa tion Online using Patient Portal and [employer] Apps Indication:BMI 40.0-44.9, adult Start:19-Mar-2022 Instruction Type:Patient Education Patient Instructions Indication:BMI 40.0-44.9, adult Start:11-Dec-2021 Instruction Type:Provider Instructions for Treatment How to Access Health Informa tion Online using Patient Portal and [employer] Apps Indication:BMI 40.0-44.9, adult Start:11-Dec-2021 Instruction Type:Patient Education Patient Instructions Indication:Type II diabetes mellitus, well controlled Start:05-Sep-2021 Instruction Type:Provider Instructions for Treatment How to Access Health Informa tion Online using Patient Portal and [employer] Apps Indication:Type II diabetes mellitus, well controlled Start:05-Sep-2021 Instruction Type:Patient Education Patient Instructions Indication:Nonsmoker Start:10-Jul-2021 Instruction Type:Provider Instructions for Treatment How to Access Health Informa tion Online using Patient Portal and [employer] Apps Indication:Nonsmoker Start:10-Jul-2021 Instruction Type:Patient Education obesity counseling Indication:Type II diabetes mellitus, well controlled Start:17-Jun-2021 Instruction Type:Provider Instructions for Treatment Patient Instructions Indication:Nonsmoker Start:17-Jun-2021 Instruction Type:Provider Instructions for Treatment How to Access Health Informa tion Online using Patient Portal and [employer] Apps Indication:Nonsmoker Start:17-Jun-2021 Instruction Type:Patient Education Patient Instructions Indication:BMI 40.0-44.9, adult Start:16-May-2021 Instruction Type:Provider Instructions for Treatment How to Access Health Informa tion Online using Patient Portal and [employer] Apps Indication:BMI 40.0-44.9, adult Start:16-May-2021 Instruction Type:Patient Education Patient Instructions Indication:BMI 36.0-36.9,adult Start:13-Feb-2021 Instruction Type:Provider Instructions for Treatment How to Access Health Informa tion Online using Patient Portal and [employer] Apps Indication:BMI 36.0-36.9,adult Start:13-Feb-2021 Instruction Type:Patient Education Patient Instructions Indication:BMI 40.0-44.9, adult Start:21-Nov-2020 Instruction Type:Provider Instructions for Treatment How to Access Health Informa tion Online using Patient Portal and [employer] Apps Indication:BMI 40.0-44.9, adult Start:21-Nov-2020 Instruction Type:Patient Education Patient Instructions Indication:BMI 40.0-44.9, adult Start:10-Oct-2020 Instruction Type:Provider Instructions for Treatment How to Access Health Informa tion Online using Patient Portal and [employer] Apps Indication:BMI 40.0-44.9, adult Start:10-Oct-2020 Instruction Type:Patient Education Patient Instructions Indication:BMI 40.0-44.9, adult Start:13-Sep-2020 Instruction Type:Provider Instructions for Treatment How to Access Health Informa tion Online using Patient Portal and [employer] Apps Indication:BMI 40.0-44.9, adult Start:13-Sep-2020 Instruction Type:Patient Education Patient Instructions Indication:Nonsmoker Start:22-Aug-2020 Instruction Type:Provider Instructions for Treatment How to Access Health Informa tion Online using Patient Portal and [employer] Apps Indication:Nonsmoker Start:22-Aug-2020 Instruction Type:Patient Education How to Access Health Informa tion Online using Patient Portal and [employer] Apps Indication:Nonsmoker Start:08-Jun-2020 Instruction Type:Patient Education Patient Instructions Indication:Nonsmoker Start:08-Jun-2020 Instruction Type:Provider Instructions for Treatment How to Access Health Informa tion Online using Patient Portal and [employer] Apps Indication:Nonsmoker Start:11-May-2020 Instruction Type:Patient Education Patient Instructions Indication:Nonsmoker Start:11-May-2020 Instruction Type:Provider Instructions for Treatment How to Access Health Informa tion Online using Patient Portal and [employer] Apps Indication:BMI 40.0-44.9, adult Start:08-Feb-2020 Instruction Type:Patient Education Patient Instructions Indication:BMI 40.0-44.9, adult Start:08-Feb-2020 Instruction Type:Provider Instructions for Treatment How to access health informa tion online Indication:Nonsmoker Start:02-Nov-2019 Instruction Type:Patient Education How to access health informa tion online - Detail Indication:Nonsmoker Start:02-Nov-2019 Instruction Type:Patient Education Patient Instructions Indication:Nonsmoker Start:02-Nov-2019 Instruction Type:Provider Instructions for Treatment How to access health informa tion online Indication:Nonsmoker Start:03-Aug-2019 Instruction Type:Patient Education How to access health informa tion online - Detail Indication:Nonsmoker Start:03-Aug-2019 Instruction Type:Patient Education Patient Instructions Indication:Nonsmoker Start:03-Aug-2019 Instruction Type:Provider Instructions for Treatment How to access health informa tion online Indication:Nonsmoker Start:22-Jun-2019 Instruction Type:Patient Education How to access health informa tion online - Detail Indication:Nonsmoker Start:22-Jun-2019 Instruction Type:Patient Education Patient Instructions Indication:Nonsmoker Start:22-Jun-2019 Instruction Type:Provider Instructions for Treatment How to access health informa tion online Indication:Nonsmoker Start:01-Jun-2019 Instruction Type:Patient Education How to access health informa tion online - Detail Indication:Nonsmoker Start:01-Jun-2019 Instruction Type:Patient Education Patient Instructions Indication:Nonsmoker Start:01-Jun-2019 Instruction Type:Provider Instructions for Treatment How to access health informa tion online Indication:HTN (hypertension), benign Start:04-May-2019 Instruction Type:Patient Education How to access health informa tion online - Detail Indication:HTN (hypertension), benign Start:04-May-2019 Instruction Type:Patient Education Patient Instructions Indication:HTN (hypertension), benign Start:04-May-2019 Instruction Type:Provider Instructions for Treatment obesity counseling Indication:Abnormal glucose tolerance test (Renamed from Abnormal glucose tolerance test (GTT)) Start:04-Apr-2019 Instruction Type:Provider Instructions for Treatment How to access health informa tion online Indication:Nonsmoker Start:04-Apr-2019 Instruction Type:Patient Education How to access health informa tion online - Detail Indication:Nonsmoker Start:04-Apr-2019 Instruction Type:Patient Education Patient Instructions Indication:Nonsmoker Start:04-Apr-2019 Instruction Type:Provider Instructions for Treatment How to access health informa tion online Indication:Cellulitis of groin Start:15-Sep-2016 Instruction Type:Patient Education How to access health informa tion online - Detail Indication:Cellulitis of groin Start:15-Sep-2016 Instruction Type:Patient Education Patient Instructions Indication:Cellulitis of groin Start:15-Sep-2016 Instruction Type:Provider Instructions for Treatment How to access health informa tion online Indication:Cellulitis of groin Start:09-Sep-2016 Instruction Type:Patient Education How to access health informa tion online - Detail Indication:Cellulitis of groin Start:09-Sep-2016 Instruction Type:Patient Education Patient Instructions Indication:Cellulitis of groin Start:09-Sep-2016 Instruction Type:Provider Instructions for Treatment [facility]; [facility] Work Phone: Instructions* Name Dates Details Patient Instructions Indication:BMI 40.0-44.9, adult Start:19-Mar-2022 Instruction Type:Provider Instructions for Treatment How to Access Health Informa tion Online using Patient Portal and [employer] Apps Indication:BMI 40.0-44.9, adult Start:19-Mar-2022 Instruction Type:Patient Education Patient Instructions Indication:BMI 40.0-44.9, adult Start:11-Dec-2021 Instruction Type:Provider Instructions for Treatment How to Access Health Informa tion Online using Patient Portal and [employer] Apps Indication:BMI 40.0-44.9, adult Start:11-Dec-2021 Instruction Type:Patient Education Patient Instructions Indication:Type II diabetes mellitus, well controlled Start:05-Sep-2021 Instruction Type:Provider Instructions for Treatment How to Access Health Informa tion Online using Patient Portal and [employer] Apps Indication:Type II diabetes mellitus, well controlled Start:05-Sep-2021 Instruction Type:Patient Education Patient Instructions Indication:Nonsmoker Start:10-Jul-2021 Instruction Type:Provider Instructions for Treatment How to Access Health Informa tion Online using Patient Portal and [employer] Apps Indication:Nonsmoker Start:10-Jul-2021 Instruction Type:Patient Education obesity counseling Indication:Type II diabetes mellitus, well controlled Start:17-Jun-2021 Instruction Type:Provider Instructions for Treatment Patient Instructions Indication:Nonsmoker Start:17-Jun-2021 Instruction Type:Provider Instructions for Treatment How to Access Health Informa tion Online using Patient Portal and [employer] Apps Indication:Nonsmoker Start:17-Jun-2021 Instruction Type:Patient Education Patient Instructions Indication:BMI 40.0-44.9, adult Start:16-May-2021 Instruction Type:Provider Instructions for Treatment How to Access Health Informa tion Online using Patient Portal and [employer] Indication:BMI 40.0-44.9, adult Start:16-May-2021 Instruction Type:Patient Education Patient Instructions Indication:BMI 36.0-36.9,adult Start:13-Feb-2021 Instruction Type:Provider Instructions for Treatment How to Access Health Informa tion Online using Patient Portal and [employer] Apps Indication:BMI 36.0-36.9,adult Start:13-Feb-2021 Instruction Type:Patient Education Patient Instructions Indication:BMI 40.0-44.9, adult Start:21-Nov-2020 Instruction Type:Provider Instructions for Treatment How to Access Health Informa tion Online using Patient Portal and [employer] Apps Indication:BMI 40.0-44.9, adult Start:21-Nov-2020 Instruction Type:Patient Education Patient Instructions Indication:BMI 40.0-44.9, adult Start:10-Oct-2020 Instruction Type:Provider Instructions for Treatment How to Access Health Informa tion Online using Patient Portal and [employer] Apps Indication:BMI 40.0-44.9, adult Start:10-Oct-2020 Instruction Type:Patient Education Patient Instructions Indication:BMI 40.0-44.9, adult Start:13-Sep-2020 Instruction Type:Provider Instructions for Treatment How to Access Health Informa tion Online using Patient Portal and [employer] Indication:BMI 40.0-44.9, adult Start:13-Sep-2020 Instruction Type:Patient Education Patient Instructions Indication:Nonsmoker Start:22-Aug-2020 Instruction Type:Provider Instructions for Treatment How to Access Health Informa tion Online using Patient Portal and [employer] Indication:Nonsmoker Start:22-Aug-2020 Instruction Type:Patient Education How to Access Health Informa tion Online using Patient Portal and [employer] Apps Indication:Nonsmoker Start:08-Jun-2020 Instruction Type:Patient Education Patient Instructions Indication:Nonsmoker Start:08-Jun-2020 Instruction Type:Provider Instructions for Treatment How to Access Health Informa tion Online using Patient Portal and [employer] Apps Indication:Nonsmoker Start:11-May-2020 Instruction Type:Patient Education Patient Instructions Indication:Nonsmoker Start:11-May-2020 Instruction Type:Provider Instructions for Treatment How to Access Health Informa tion Online using Patient Portal and [employer] Apps Indication:BMI 40.0-44.9, adult Start:08-Feb-2020 Instruction Type:Patient Education Patient Instructions Indication:BMI 40.0-44.9, adult Start:08-Feb-2020 Instruction Type:Provider Instructions for Treatment How to access health informa tion online Indication:Nonsmoker Start:02-Nov-2019 Instruction Type:Patient Education How to access health informa tion online - Detail Indication:Nonsmoker Start:02-Nov-2019 Instruction Type:Patient Education Patient Instructions Indication:Nonsmoker Start:02-Nov-2019 Instruction Type:Provider Instructions for Treatment How to access health informa tion online Indication:Nonsmoker Start:03-Aug-2019 Instruction Type:Patient Education How to access health informa tion online - Detail Indication:Nonsmoker Start:03-Aug-2019 Instruction Type:Patient Education Patient Instructions Indication:Nonsmoker Start:03-Aug-2019 Instruction Type:Provider Instructions for Treatment How to access health informa tion online Indication:Nonsmoker Start:22-Jun-2019 Instruction Type:Patient Education How to access health informa tion online - Detail Indication:Nonsmoker Start:22-Jun-2019 Instruction Type:Patient Education Patient Instructions Indication:Nonsmoker Start:22-Jun-2019 Instruction Type:Provider Instructions for Treatment How to access health informa tion online Indication:Nonsmoker Start:01-Jun-2019 Instruction Type:Patient Education How to access health informa tion online - Detail Indication:Nonsmoker Start:01-Jun-2019 Instruction Type:Patient Education Patient Instructions Indication:Nonsmoker Start:01-Jun-2019 Instruction Type:Provider Instructions for Treatment How to access health informa tion online Indication:HTN (hypertension), benign Start:04-May-2019 Instruction Type:Patient Education How to access health informa tion online - Detail Indication:HTN (hypertension), benign Start:04-May-2019 Instruction Type:Patient Education Patient Instructions Indication:HTN (hypertension), benign Start:04-May-2019 Instruction Type:Provider Instructions for Treatment obesity counseling Indication:Abnormal glucose tolerance test (Renamed from Abnormal glucose tolerance test (GTT)) Start:04-Apr-2019 Instruction Type:Provider Instructions for Treatment How to access health informa tion online Indication:Nonsmoker Start:04-Apr-2019 Instruction Type:Patient Education How to access health informa tion online - Detail Indication:Nonsmoker Start:04-Apr-2019 Instruction Type:Patient Education Patient Instructions Indication:Nonsmoker Start:04-Apr-2019 Instruction Type:Provider Instructions for Treatment How to access health informa tion online Indication:Cellulitis of groin Start:15-Sep-2016 Instruction Type:Patient Education How to access health informa tion online - Detail Indication:Cellulitis of groin Start:15-Sep-2016 Instruction Type:Patient Education Patient Instructions Indication:Cellulitis of groin Start:15-Sep-2016 Instruction Type:Provider Instructions for Treatment How to access health informa tion online Indication:Cellulitis of groin Start:09-Sep-2016 Instruction Type:Patient Education How to access health informa tion online - Detail Indication:Cellulitis of groin Start:09-Sep-2016 Instruction Type:Patient Education Patient Instructions Indication:Cellulitis of groin Start:09-Sep-2016 Instruction Type:Provider Instructions for Treatment [facility]; [facility] Work Phone: Instructions* Name Dates Details Patient Instructions Indication:BMI 40.0-44.9, adult Start:19-Jun-2022 Instruction Type:Provider Instructions for Treatment How to Access Health Informa tion Online using Patient Portal and [employer] Apps Indication:BMI 40.0-44.9, adult Start:19-Jun-2022 Instruction Type:Patient Education Patient Instructions Indication:BMI 40.0-44.9, adult Start:19-Mar-2022 Instruction Type:Provider Instructions for Treatment How to Access Health Informa tion Online using Patient Portal and [employer] Apps Indication:BMI 40.0-44.9, adult Start:19-Mar-2022 Instruction Type:Patient Education Patient Instructions Indication:BMI 40.0-44.9, adult Start:11-Dec-2021 Instruction Type:Provider Instructions for Treatment How to Access Health Informa tion Online using Patient Portal and [employer] Apps Indication:BMI 40.0-44.9, adult Start:11-Dec-2021 Instruction Type:Patient Education Patient Instructions Indication:Type II diabetes mellitus, well controlled Start:05-Sep-2021 Instruction Type:Provider Instructions for Treatment How to Access Health Informa tion Online using Patient Portal and [employer] Apps Indication:Type II diabetes mellitus, well controlled Start:05-Sep-2021 Instruction Type:Patient Education Patient Instructions Indication:Nonsmoker Start:10-Jul-2021 Instruction Type:Provider Instructions for Treatment How to Access Health Informa tion Online using Patient Portal and [employer] Apps Indication:Nonsmoker Start:10-Jul-2021 Instruction Type:Patient Education obesity counseling Indication:Type II diabetes mellitus, well controlled Start:17-Jun-2021 Instruction Type:Provider Instructions for Treatment Patient Instructions Indication:Nonsmoker Start:17-Jun-2021 Instruction Type:Provider Instructions for Treatment How to Access Health Informa tion Online using Patient Portal and [employer] Apps Indication:Nonsmoker Start:17-Jun-2021 Instruction Type:Patient Education Patient Instructions Indication:BMI 40.0-44.9, adult Start:16-May-2021 Instruction Type:Provider Instructions for Treatment How to Access Health Informa tion Online using Patient Portal and [employer] Apps Indication:BMI 40.0-44.9, adult Start:16-May-2021 Instruction Type:Patient Education Patient Instructions Indication:BMI 36.0-36.9,adult Start:13-Feb-2021 Instruction Type:Provider Instructions for Treatment How to Access Health Informa tion Online using Patient Portal and [employer] Apps Indication:BMI 36.0-36.9,adult Start:13-Feb-2021 Instruction Type:Patient Education Patient Instructions Indication:BMI 40.0-44.9, adult Start:21-Nov-2020 Instruction Type:Provider Instructions for Treatment How to Access Health Informa tion Online using Patient Portal and [employer] Apps Indication:BMI 40.0-44.9, adult Start:21-Nov-2020 Instruction Type:Patient Education Patient Instructions Indication:BMI 40.0-44.9, adult Start:10-Oct-2020 Instruction Type:Provider Instructions for Treatment How to Access Health Informa tion Online using Patient Portal and [employer] Apps Indication:BMI 40.0-44.9, adult Start:10-Oct-2020 Instruction Type:Patient Education Patient Instructions Indication:BMI 40.0-44.9, adult Start:13-Sep-2020 Instruction Type:Provider Instructions for Treatment How to Access Health Informa tion Online using Patient Portal and [employer] Apps Indication:BMI 40.0-44.9, adult Start:13-Sep-2020 Instruction Type:Patient Education Patient Instructions Indication:Nonsmoker Start:22-Aug-2020 Instruction Type:Provider Instructions for Treatment How to Access Health Informa tion Online using Patient Portal and [employer] Apps Indication:Nonsmoker Start:22-Aug-2020 Instruction Type:Patient Education How to Access Health Informa tion Online using Patient Portal and [employer] Apps Indication:Nonsmoker Start:08-Jun-2020 Instruction Type:Patient Education Patient Instructions Indication:Nonsmoker Start:08-Jun-2020 Instruction Type:Provider Instructions for Treatment How to Access Health Informa tion Online using Patient Portal and [employer] Apps Indication:Nonsmoker Start:11-May-2020 Instruction Type:Patient Education Patient Instructions Indication:Nonsmoker Start:11-May-2020 Instruction Type:Provider Instructions for Treatment How to Access Health Informa tion Online using Patient Portal and [employer] Apps Indication:BMI 40.0-44.9, adult Start:08-Feb-2020 Instruction Type:Patient Education Patient Instructions Indication:BMI 40.0-44.9, adult Start:08-Feb-2020 Instruction Type:Provider Instructions for Treatment How to access health informa tion online Indication:Nonsmoker Start:02-Nov-2019 Instruction Type:Patient Education How to access health informa tion online - Detail Indication:Nonsmoker Start:02-Nov-2019 Instruction Type:Patient Education Patient Instructions Indication:Nonsmoker Start:02-Nov-2019 Instruction Type:Provider Instructions for Treatment How to access health informa tion online Indication:Nonsmoker Start:03-Aug-2019 Instruction Type:Patient Education How to access health informa tion online - Detail Indication:Nonsmoker Start:03-Aug-2019 Instruction Type:Patient Education Patient Instructions Indication:Nonsmoker Start:03-Aug-2019 Instruction Type:Provider Instructions for Treatment How to access health informa tion online Indication:Nonsmoker Start:22-Jun-2019 Instruction Type:Patient Education How to access health informa tion online - Detail Indication:Nonsmoker Start:22-Jun-2019 Instruction Type:Patient Education Patient Instructions Indication:Nonsmoker Start:22-Jun-2019 Instruction Type:Provider Instructions for Treatment How to access health informa tion online Indication:Nonsmoker Start:01-Jun-2019 Instruction Type:Patient Education How to access health informa tion online - Detail Indication:Nonsmoker Start:01-Jun-2019 Instruction Type:Patient Education Patient Instructions Indication:Nonsmoker Start:01-Jun-2019 Instruction Type:Provider Instructions for Treatment How to access health informa tion online Indication:HTN (hypertension), benign Start:04-May-2019 Instruction Type:Patient Education How to access health informa tion online - Detail Indication:HTN (hypertension), benign Start:04-May-2019 Instruction Type:Patient Education Patient Instructions Indication:HTN (hypertension), benign Start:04-May-2019 Instruction Type:Provider Instructions for Treatment obesity counseling Indication:Abnormal glucose tolerance test (Renamed from Abnormal glucose tolerance test (GTT)) Start:04-Apr-2019 Instruction Type:Provider Instructions for Treatment How to access health informa tion online Indication:Nonsmoker Start:04-Apr-2019 Instruction Type:Patient Education How to access health informa tion online - Detail Indication:Nonsmoker Start:04-Apr-2019 Instruction Type:Patient Education Patient Instructions Indication:Nonsmoker Start:04-Apr-2019 Instruction Type:Provider Instructions for Treatment How to access health informa tion online Indication:Cellulitis of groin Start:15-Sep-2016 Instruction Type:Patient Education How to access health informa tion online - Detail Indication:Cellulitis of groin Start:15-Sep-2016 Instruction Type:Patient Education Patient Instructions Indication:Cellulitis of groin Start:15-Sep-2016 Instruction Type:Provider Instructions for Treatment How to access health informa tion online Indication:Cellulitis of groin Start:09-Sep-2016 Instruction Type:Patient Education How to access health informa tion online - Detail Indication:Cellulitis of groin Start:09-Sep-2016 Instruction Type:Patient Education Patient Instructions Indication:Cellulitis of groin Start:09-Sep-2016 Instruction Type:Provider Instructions for Treatment [facility]; [facility] Work Phone: Instructions* Name Dates Details Patient Instructions Indication:BMI 40.0-44.9, adult Start:19-Jun-2022 Instruction Type:Provider Instructions for Treatment How to Access Health Informa tion Online using Patient Portal and [employer] Apps Indication:BMI 40.0-44.9, adult Start:19-Jun-2022 Instruction Type:Patient Education Patient Instructions Indication:BMI 40.0-44.9, adult Start:19-Mar-2022 Instruction Type:Provider Instructions for Treatment How to Access Health Informa tion Online using Patient Portal and [employer] Apps Indication:BMI 40.0-44.9, adult Start:19-Mar-2022 Instruction Type:Patient Education Patient Instructions Indication:BMI 40.0-44.9, adult Start:11-Dec-2021 Instruction Type:Provider Instructions for Treatment How to Access Health Informa tion Online using Patient Portal and [employer] Apps Indication:BMI 40.0-44.9, adult Start:11-Dec-2021 Instruction Type:Patient Education Patient Instructions Indication:Type II diabetes mellitus, well controlled Start:05-Sep-2021 Instruction Type:Provider Instructions for Treatment How to Access Health Informa tion Online using Patient Portal and [employer] Apps Indication:Type II diabetes mellitus, well controlled Start:05-Sep-2021 Instruction Type:Patient Education Patient Instructions Indication:Nonsmoker Start:10-Jul-2021 Instruction Type:Provider Instructions for Treatment How to Access Health Informa tion Online using Patient Portal and [employer] Apps Indication:Nonsmoker Start:10-Jul-2021 Instruction Type:Patient Education obesity counseling Indication:Type II diabetes mellitus, well controlled Start:17-Jun-2021 Instruction Type:Provider Instructions for Treatment Patient Instructions Indication:Nonsmoker Start:17-Jun-2021 Instruction Type:Provider Instructions for Treatment How to Access Health Informa tion Online using Patient Portal and [employer] Apps Indication:Nonsmoker Start:17-Jun-2021 Instruction Type:Patient Education Patient Instructions Indication:BMI 40.0-44.9, adult Start:16-May-2021 Instruction Type:Provider Instructions for Treatment How to Access Health Informa tion Online using Patient Portal and [employer] Apps Indication:BMI 40.0-44.9, adult Start:16-May-2021 Instruction Type:Patient Education Patient Instructions Indication:BMI 36.0-36.9,adult Start:13-Feb-2021 Instruction Type:Provider Instructions for Treatment How to Access Health Informa tion Online using Patient Portal and [employer] Apps Indication:BMI 36.0-36.9,adult Start:13-Feb-2021 Instruction Type:Patient Education Patient Instructions Indication:BMI 40.0-44.9, adult Start:21-Nov-2020 Instruction Type:Provider Instructions for Treatment How to Access Health Informa tion Online using Patient Portal and [employer] Apps Indication:BMI 40.0-44.9, adult Start:21-Nov-2020 Instruction Type:Patient Education Patient Instructions Indication:BMI 40.0-44.9, adult Start:10-Oct-2020 Instruction Type:Provider Instructions for Treatment How to Access Health Informa tion Online using Patient Portal and [employer] Apps Indication:BMI 40.0-44.9, adult Start:10-Oct-2020 Instruction Type:Patient Education Patient Instructions Indication:BMI 40.0-44.9, adult Start:13-Sep-2020 Instruction Type:Provider Instructions for Treatment How to Access Health Informa tion Online using Patient Portal and [employer] Apps Indication:BMI 40.0-44.9, adult Start:13-Sep-2020 Instruction Type:Patient Education Patient Instructions Indication:Nonsmoker Start:22-Aug-2020 Instruction Type:Provider Instructions for Treatment How to Access Health Informa tion Online using Patient Portal and [employer] Apps Indication:Nonsmoker Start:22-Aug-2020 Instruction Type:Patient Education How to Access Health Informa tion Online using Patient Portal and [employer] Apps Indication:Nonsmoker Start:08-Jun-2020 Instruction Type:Patient Education Patient Instructions Indication:Nonsmoker Start:08-Jun-2020 Instruction Type:Provider Instructions for Treatment How to Access Health Informa tion Online using Patient Portal and [employer] Apps Indication:Nonsmoker Start:11-May-2020 Instruction Type:Patient Education Patient Instructions Indication:Nonsmoker Start:11-May-2020 Instruction Type:Provider Instructions for Treatment How to Access Health Informa tion Online using Patient Portal and [employer] Apps Indication:BMI 40.0-44.9, adult Start:08-Feb-2020 Instruction Type:Patient Education Patient Instructions Indication:BMI 40.0-44.9, adult Start:08-Feb-2020 Instruction Type:Provider Instructions for Treatment How to access health informa tion online Indication:Nonsmoker Start:02-Nov-2019 Instruction Type:Patient Education How to access health informa tion online - Detail Indication:Nonsmoker Start:02-Nov-2019 Instruction Type:Patient Education Patient Instructions Indication:Nonsmoker Start:02-Nov-2019 Instruction Type:Provider Instructions for Treatment How to access health informa tion online Indication:Nonsmoker Start:03-Aug-2019 Instruction Type:Patient Education How to access health informa tion online - Detail Indication:Nonsmoker Start:03-Aug-2019 Instruction Type:Patient Education Patient Instructions Indication:Nonsmoker Start:03-Aug-2019 Instruction Type:Provider Instructions for Treatment How to access health informa tion online Indication:Nonsmoker Start:22-Jun-2019 Instruction Type:Patient Education How to access health informa tion online - Detail Indication:Nonsmoker Start:22-Jun-2019 Instruction Type:Patient Education Patient Instructions Indication:Nonsmoker Start:22-Jun-2019 Instruction Type:Provider Instructions for Treatment How to access health informa tion online Indication:Nonsmoker Start:01-Jun-2019 Instruction Type:Patient Education How to access health informa tion online - Detail Indication:Nonsmoker Start:01-Jun-2019 Instruction Type:Patient Education Patient Instructions Indication:Nonsmoker Start:01-Jun-2019 Instruction Type:Provider Instructions for Treatment How to access health informa tion online Indication:HTN (hypertension), benign Start:04-May-2019 Instruction Type:Patient Education How to access health informa tion online - Detail Indication:HTN (hypertension), benign Start:04-May-2019 Instruction Type:Patient Education Patient Instructions Indication:HTN (hypertension), benign Start:04-May-2019 Instruction Type:Provider Instructions for Treatment obesity counseling Indication:Abnormal glucose tolerance test (Renamed from Abnormal glucose tolerance test (GTT)) Start:04-Apr-2019 Instruction Type:Provider Instructions for Treatment How to access health informa tion online Indication:Nonsmoker Start:04-Apr-2019 Instruction Type:Patient Education How to access health informa tion online - Detail Indication:Nonsmoker Start:04-Apr-2019 Instruction Type:Patient Education Patient Instructions Indication:Nonsmoker Start:04-Apr-2019 Instruction Type:Provider Instructions for Treatment How to access health informa tion online Indication:Cellulitis of groin Start:15-Sep-2016 Instruction Type:Patient Education How to access health informa tion online - Detail Indication:Cellulitis of groin Start:15-Sep-2016 Instruction Type:Patient Education Patient Instructions Indication:Cellulitis of groin Start:15-Sep-2016 Instruction Type:Provider Instructions for Treatment How to access health informa tion online Indication:Cellulitis of groin Start:09-Sep-2016 Instruction Type:Patient Education How to access health informa tion online - Detail Indication:Cellulitis of groin Start:09-Sep-2016 Instruction Type:Patient Education Patient Instructions Indication:Cellulitis of groin Start:09-Sep-2016 Instruction Type:Provider Instructions for Treatment [facility]; [facility] Work Phone: Instructions* Name Dates Details Patient Instructions Indication:Nonsmoker Start:25-Sep-2022 Instruction Type:Provider Instructions for Treatment How to Access Health Informa tion Online using Patient Portal and [employer] Apps Indication:Nonsmoker Start:25-Sep-2022 Instruction Type:Patient Education Patient Instructions Indication:BMI 40.0-44.9, adult Start:19-Jun-2022 Instruction Type:Provider Instructions for Treatment How to Access Health Informa tion Online using Patient Portal and [employer] Apps Indication:BMI 40.0-44.9, adult Start:19-Jun-2022 Instruction Type:Patient Education Patient Instructions Indication:BMI 40.0-44.9, adult Start:19-Mar-2022 Instruction Type:Provider Instructions for Treatment How to Access Health Informa tion Online using Patient Portal and [employer] Apps Indication:BMI 40.0-44.9, adult Start:19-Mar-2022 Instruction Type:Patient Education Patient Instructions Indication:BMI 40.0-44.9, adult Start:11-Dec-2021 Instruction Type:Provider Instructions for Treatment How to Access Health Informa tion Online using Patient Portal and [employer] Apps Indication:BMI 40.0-44.9, adult Start:11-Dec-2021 Instruction Type:Patient Education Patient Instructions Indication:Type II diabetes mellitus, well controlled Start:05-Sep-2021 Instruction Type:Provider Instructions for Treatment How to Access Health Informa tion Online using Patient Portal and [employer] Apps Indication:Type II diabetes mellitus, well controlled Start:05-Sep-2021 Instruction Type:Patient Education Patient Instructions Indication:Nonsmoker Start:10-Jul-2021 Instruction Type:Provider Instructions for Treatment How to Access Health Informa tion Online using Patient Portal and [employer] Apps Indication:Nonsmoker Start:10-Jul-2021 Instruction Type:Patient Education obesity counseling Indication:Type II diabetes mellitus, well controlled Start:17-Jun-2021 Instruction Type:Provider Instructions for Treatment Patient Instructions Indication:Nonsmoker Start:17-Jun-2021 Instruction Type:Provider Instructions for Treatment How to Access Health Informa tion Online using Patient Portal and [employer] Apps Indication:Nonsmoker Start:17-Jun-2021 Instruction Type:Patient Education Patient Instructions Indication:BMI 40.0-44.9, adult Start:16-May-2021 Instruction Type:Provider Instructions for Treatment How to Access Health Informa tion Online using Patient Portal and [employer] Apps Indication:BMI 40.0-44.9, adult Start:16-May-2021 Instruction Type:Patient Education Patient Instructions Indication:BMI 36.0-36.9,adult Start:13-Feb-2021 Instruction Type:Provider Instructions for Treatment How to Access Health Informa tion Online using Patient Portal and [employer] Apps Indication:BMI 36.0-36.9,adult Start:13-Feb-2021 Instruction Type:Patient Education Patient Instructions Indication:BMI 40.0-44.9, adult Start:21-Nov-2020 Instruction Type:Provider Instructions for Treatment How to Access Health Informa tion Online using Patient Portal and [employer] Apps Indication:BMI 40.0-44.9, adult Start:21-Nov-2020 Instruction Type:Patient Education Patient Instructions Indication:BMI 40.0-44.9, adult Start:10-Oct-2020 Instruction Type:Provider Instructions for Treatment How to Access Health Informa tion Online using Patient Portal and [employer] Apps Indication:BMI 40.0-44.9, adult Start:10-Oct-2020 Instruction Type:Patient Education Patient Instructions Indication:BMI 40.0-44.9, adult Start:13-Sep-2020 Instruction Type:Provider Instructions for Treatment How to Access Health Informa tion Online using Patient Portal and [employer] Apps Indication:BMI 40.0-44.9, adult Start:13-Sep-2020 Instruction Type:Patient Education Patient Instructions Indication:Nonsmoker Start:22-Aug-2020 Instruction Type:Provider Instructions for Treatment How to Access Health Informa tion Online using Patient Portal and [employer] Apps Indication:Nonsmoker Start:22-Aug-2020 Instruction Type:Patient Education How to Access Health Informa tion Online using Patient Portal and [employer] Apps Indication:Nonsmoker Start:08-Jun-2020 Instruction Type:Patient Education Patient Instructions Indication:Nonsmoker Start:08-Jun-2020 Instruction Type:Provider Instructions for Treatment How to Access Health Informa tion Online using Patient Portal and [employer] Apps Indication:Nonsmoker Start:11-May-2020 Instruction Type:Patient Education Patient Instructions Indication:Nonsmoker Start:11-May-2020 Instruction Type:Provider Instructions for Treatment How to Access Health Informa tion Online using Patient Portal and [employer] Apps Indication:BMI 40.0-44.9, adult Start:08-Feb-2020 Instruction Type:Patient Education Patient Instructions Indication:BMI 40.0-44.9, adult Start:08-Feb-2020 Instruction Type:Provider Instructions for Treatment How to access health informa tion online Indication:Nonsmoker Start:02-Nov-2019 Instruction Type:Patient Education How to access health informa tion online - Detail Indication:Nonsmoker Start:02-Nov-2019 Instruction Type:Patient Education Patient Instructions Indication:Nonsmoker Start:02-Nov-2019 Instruction Type:Provider Instructions for Treatment How to access health informa tion online Indication:Nonsmoker Start:03-Aug-2019 Instruction Type:Patient Education How to access health informa tion online - Detail Indication:Nonsmoker Start:03-Aug-2019 Instruction Type:Patient Education Patient Instructions Indication:Nonsmoker Start:03-Aug-2019 Instruction Type:Provider Instructions for Treatment How to access health informa tion online Indication:Nonsmoker Start:22-Jun-2019 Instruction Type:Patient Education How to access health informa tion online - Detail Indication:Nonsmoker Start:22-Jun-2019 Instruction Type:Patient Education Patient Instructions Indication:Nonsmoker Start:22-Jun-2019 Instruction Type:Provider Instructions for Treatment How to access health informa tion online Indication:Nonsmoker Start:01-Jun-2019 Instruction Type:Patient Education How to access health informa tion online - Detail Indication:Nonsmoker Start:01-Jun-2019 Instruction Type:Patient Education Patient Instructions Indication:Nonsmoker Start:01-Jun-2019 Instruction Type:Provider Instructions for Treatment How to access health informa tion online Indication:HTN (hypertension), benign Start:04-May-2019 Instruction Type:Patient Education How to access health informa tion online - Detail Indication:HTN (hypertension), benign Start:04-May-2019 Instruction Type:Patient Education Patient Instructions Indication:HTN (hypertension), benign Start:04-May-2019 Instruction Type:Provider Instructions for Treatment obesity counseling Indication:Abnormal glucose tolerance test (Renamed from Abnormal glucose tolerance test (GTT)) Start:04-Apr-2019 Instruction Type:Provider Instructions for Treatment How to access health informa tion online Indication:Nonsmoker Start:04-Apr-2019 Instruction Type:Patient Education How to access health informa tion online - Detail Indication:Nonsmoker Start:04-Apr-2019 Instruction Type:Patient Education Patient Instructions Indication:Nonsmoker Start:04-Apr-2019 Instruction Type:Provider Instructions for Treatment How to access health informa tion online Indication:Cellulitis of groin Start:15-Sep-2016 Instruction Type:Patient Education How to access health informa tion online - Detail Indication:Cellulitis of groin Start:15-Sep-2016 Instruction Type:Patient Education Patient Instructions Indication:Cellulitis of groin Start:15-Sep-2016 Instruction Type:Provider Instructions for Treatment How to access health informa tion online Indication:Cellulitis of groin Start:09-Sep-2016 Instruction Type:Patient Education How to access health informa tion online - Detail Indication:Cellulitis of groin Start:09-Sep-2016 Instruction Type:Patient Education Patient Instructions Indication:Cellulitis of groin Start:09-Sep-2016 Instruction Type:Provider Instructions for Treatment [facility]; [facility] Work Phone: Instructions* Name Dates Details Patient Instructions Indication:Nonsmoker Start:25-Sep-2022 Instruction Type:Provider Instructions for Treatment How to Access Health Informa tion Online using Patient Portal and [employer] Apps Indication:Nonsmoker Start:25-Sep-2022 Instruction Type:Patient Education Patient Instructions Indication:BMI 40.0-44.9, adult Start:19-Jun-2022 Instruction Type:Provider Instructions for Treatment How to Access Health Informa tion Online using Patient Portal and [employer] Apps Indication:BMI 40.0-44.9, adult Start:19-Jun-2022 Instruction Type:Patient Education Patient Instructions Indication:BMI 40.0-44.9, adult Start:19-Mar-2022 Instruction Type:Provider Instructions for Treatment How to Access Health Informa tion Online using Patient Portal and [employer] Apps Indication:BMI 40.0-44.9, adult Start:19-Mar-2022 Instruction Type:Patient Education Patient Instructions Indication:BMI 40.0-44.9, adult Start:11-Dec-2021 Instruction Type:Provider Instructions for Treatment How to Access Health Informa tion Online using Patient Portal and [employer] Apps Indication:BMI 40.0-44.9, adult Start:11-Dec-2021 Instruction Type:Patient Education Patient Instructions Indication:Type II diabetes mellitus, well controlled Start:05-Sep-2021 Instruction Type:Provider Instructions for Treatment How to Access Health Informa tion Online using Patient Portal and [employer] Apps Indication:Type II diabetes mellitus, well controlled Start:05-Sep-2021 Instruction Type:Patient Education Patient Instructions Indication:Nonsmoker Start:10-Jul-2021 Instruction Type:Provider Instructions for Treatment How to Access Health Informa tion Online using Patient Portal and [employer] Apps Indication:Nonsmoker Start:10-Jul-2021 Instruction Type:Patient Education obesity counseling Indication:Type II diabetes mellitus, well controlled Start:17-Jun-2021 Instruction Type:Provider Instructions for Treatment Patient Instructions Indication:Nonsmoker Start:17-Jun-2021 Instruction Type:Provider Instructions for Treatment How to Access Health Informa tion Online using Patient Portal and [employer] Apps Indication:Nonsmoker Start:17-Jun-2021 Instruction Type:Patient Education Patient Instructions Indication:BMI 40.0-44.9, adult Start:16-May-2021 Instruction Type:Provider Instructions for Treatment How to Access Health Informa tion Online using Patient Portal and [employer] Apps Indication:BMI 40.0-44.9, adult Start:16-May-2021 Instruction Type:Patient Education Patient Instructions Indication:BMI 36.0-36.9,adult Start:13-Feb-2021 Instruction Type:Provider Instructions for Treatment How to Access Health Informa tion Online using Patient Portal and [employer] Apps Indication:BMI 36.0-36.9,adult Start:13-Feb-2021 Instruction Type:Patient Education Patient Instructions Indication:BMI 40.0-44.9, adult Start:21-Nov-2020 Instruction Type:Provider Instructions for Treatment How to Access Health Informa tion Online using Patient Portal and [employer] Apps Indication:BMI 40.0-44.9, adult Start:21-Nov-2020 Instruction Type:Patient Education Patient Instructions Indication:BMI 40.0-44.9, adult Start:10-Oct-2020 Instruction Type:Provider Instructions for Treatment How to Access Health Informa tion Online using Patient Portal and [employer] Apps Indication:BMI 40.0-44.9, adult Start:10-Oct-2020 Instruction Type:Patient Education Patient Instructions Indication:BMI 40.0-44.9, adult Start:13-Sep-2020 Instruction Type:Provider Instructions for Treatment How to Access Health Informa tion Online using Patient Portal and [employer] Apps Indication:BMI 40.0-44.9, adult Start:13-Sep-2020 Instruction Type:Patient Education Patient Instructions Indication:Nonsmoker Start:22-Aug-2020 Instruction Type:Provider Instructions for Treatment How to Access Health Informa tion Online using Patient Portal and [employer] Apps Indication:Nonsmoker Start:22-Aug-2020 Instruction Type:Patient Education How to Access Health Informa tion Online using Patient Portal and [employer] Apps Indication:Nonsmoker Start:08-Jun-2020 Instruction Type:Patient Education Patient Instructions Indication:Nonsmoker Start:08-Jun-2020 Instruction Type:Provider Instructions for Treatment How to Access Health Informa tion Online using Patient Portal and [employer] Apps Indication:Nonsmoker Start:11-May-2020 Instruction Type:Patient Education Patient Instructions Indication:Nonsmoker Start:11-May-2020 Instruction Type:Provider Instructions for Treatment How to Access Health Informa tion Online using Patient Portal and [employer] Apps Indication:BMI 40.0-44.9, adult Start:08-Feb-2020 Instruction Type:Patient Education Patient Instructions Indication:BMI 40.0-44.9, adult Start:08-Feb-2020 Instruction Type:Provider Instructions for Treatment How to access health informa tion online Indication:Nonsmoker Start:02-Nov-2019 Instruction Type:Patient Education How to access health informa tion online - Detail Indication:Nonsmoker Start:02-Nov-2019 Instruction Type:Patient Education Patient Instructions Indication:Nonsmoker Start:02-Nov-2019 Instruction Type:Provider Instructions for Treatment How to access health informa tion online Indication:Nonsmoker Start:03-Aug-2019 Instruction Type:Patient Education How to access health informa tion online - Detail Indication:Nonsmoker Start:03-Aug-2019 Instruction Type:Patient Education Patient Instructions Indication:Nonsmoker Start:03-Aug-2019 Instruction Type:Provider Instructions for Treatment How to access health informa tion online Indication:Nonsmoker Start:22-Jun-2019 Instruction Type:Patient Education How to access health informa tion online - Detail Indication:Nonsmoker Start:22-Jun-2019 Instruction Type:Patient Education Patient Instructions Indication:Nonsmoker Start:22-Jun-2019 Instruction Type:Provider Instructions for Treatment How to access health informa tion online Indication:Nonsmoker Start:01-Jun-2019 Instruction Type:Patient Education How to access health informa tion online - Detail Indication:Nonsmoker Start:01-Jun-2019 Instruction Type:Patient Education Patient Instructions Indication:Nonsmoker Start:01-Jun-2019 Instruction Type:Provider Instructions for Treatment How to access health informa tion online Indication:HTN (hypertension), benign Start:04-May-2019 Instruction Type:Patient Education How to access health informa tion online - Detail Indication:HTN (hypertension), benign Start:04-May-2019 Instruction Type:Patient Education Patient Instructions Indication:HTN (hypertension), benign Start:04-May-2019 Instruction Type:Provider Instructions for Treatment obesity counseling Indication:Abnormal glucose tolerance test (Renamed from Abnormal glucose tolerance test (GTT)) Start:04-Apr-2019 Instruction Type:Provider Instructions for Treatment How to access health informa tion online Indication:Nonsmoker Start:04-Apr-2019 Instruction Type:Patient Education How to access health informa tion online - Detail Indication:Nonsmoker Start:04-Apr-2019 Instruction Type:Patient Education Patient Instructions Indication:Nonsmoker Start:04-Apr-2019 Instruction Type:Provider Instructions for Treatment How to access health informa tion online Indication:Cellulitis of groin Start:15-Sep-2016 Instruction Type:Patient Education How to access health informa tion online - Detail Indication:Cellulitis of groin Start:15-Sep-2016 Instruction Type:Patient Education Patient Instructions Indication:Cellulitis of groin Start:15-Sep-2016 Instruction Type:Provider Instructions for Treatment How to access health informa tion online Indication:Cellulitis of groin Start:09-Sep-2016 Instruction Type:Patient Education How to access health informa tion online - Detail Indication:Cellulitis of groin Start:09-Sep-2016 Instruction Type:Patient Education Patient Instructions Indication:Cellulitis of groin Start:09-Sep-2016 Instruction Type:Provider Instructions for Treatment [facility]; [facility] Work Phone: Instructions* Name Dates Details Patient Instructions Indication:Nonsmoker Start:25-Sep-2022 Instruction Type:Provider Instructions for Treatment How to Access Health Informa tion Online using Patient Portal and [employer] Apps Indication:Nonsmoker Start:25-Sep-2022 Instruction Type:Patient Education Patient Instructions Indication:BMI 40.0-44.9, adult Start:19-Jun-2022 Instruction Type:Provider Instructions for Treatment How to Access Health Informa tion Online using Patient Portal and [employer] Apps Indication:BMI 40.0-44.9, adult Start:19-Jun-2022 Instruction Type:Patient Education Patient Instructions Indication:BMI 40.0-44.9, adult Start:19-Mar-2022 Instruction Type:Provider Instructions for Treatment How to Access Health Informa tion Online using Patient Portal and [employer] Apps Indication:BMI 40.0-44.9, adult Start:19-Mar-2022 Instruction Type:Patient Education Patient Instructions Indication:BMI 40.0-44.9, adult Start:11-Dec-2021 Instruction Type:Provider Instructions for Treatment How to Access Health Informa tion Online using Patient Portal and [employer] Apps Indication:BMI 40.0-44.9, adult Start:11-Dec-2021 Instruction Type:Patient Education Patient Instructions Indication:Type II diabetes mellitus, well controlled Start:05-Sep-2021 Instruction Type:Provider Instructions for Treatment How to Access Health Informa tion Online using Patient Portal and [employer] Apps Indication:Type II diabetes mellitus, well controlled Start:05-Sep-2021 Instruction Type:Patient Education Patient Instructions Indication:Nonsmoker Start:10-Jul-2021 Instruction Type:Provider Instructions for Treatment How to Access Health Informa tion Online using Patient Portal and [employer] Apps Indication:Nonsmoker Start:10-Jul-2021 Instruction Type:Patient Education obesity counseling Indication:Type II diabetes mellitus, well controlled Start:17-Jun-2021 Instruction Type:Provider Instructions for Treatment Patient Instructions Indication:Nonsmoker Start:17-Jun-2021 Instruction Type:Provider Instructions for Treatment How to Access Health Informa tion Online using Patient Portal and [employer] Apps Indication:Nonsmoker Start:17-Jun-2021 Instruction Type:Patient Education Patient Instructions Indication:BMI 40.0-44.9, adult Start:16-May-2021 Instruction Type:Provider Instructions for Treatment How to Access Health Informa tion Online using Patient Portal and [employer] Apps Indication:BMI 40.0-44.9, adult Start:16-May-2021 Instruction Type:Patient Education Patient Instructions Indication:BMI 36.0-36.9,adult Start:13-Feb-2021 Instruction Type:Provider Instructions for Treatment How to Access Health Informa tion Online using Patient Portal and [employer] Apps Indication:BMI 36.0-36.9,adult Start:13-Feb-2021 Instruction Type:Patient Education Patient Instructions Indication:BMI 40.0-44.9, adult Start:21-Nov-2020 Instruction Type:Provider Instructions for Treatment How to Access Health Informa tion Online using Patient Portal and [employer] Apps Indication:BMI 40.0-44.9, adult Start:21-Nov-2020 Instruction Type:Patient Education Patient Instructions Indication:BMI 40.0-44.9, adult Start:10-Oct-2020 Instruction Type:Provider Instructions for Treatment How to Access Health Informa tion Online using Patient Portal and [employer] Apps Indication:BMI 40.0-44.9, adult Start:10-Oct-2020 Instruction Type:Patient Education Patient Instructions Indication:BMI 40.0-44.9, adult Start:13-Sep-2020 Instruction Type:Provider Instructions for Treatment How to Access Health Informa tion Online using Patient Portal and [employer] Apps Indication:BMI 40.0-44.9, adult Start:13-Sep-2020 Instruction Type:Patient Education Patient Instructions Indication:Nonsmoker Start:22-Aug-2020 Instruction Type:Provider Instructions for Treatment How to Access Health Informa tion Online using Patient Portal and [employer] Apps Indication:Nonsmoker Start:22-Aug-2020 Instruction Type:Patient Education How to Access Health Informa tion Online using Patient Portal and [employer] Apps Indication:Nonsmoker Start:08-Jun-2020 Instruction Type:Patient Education Patient Instructions Indication:Nonsmoker Start:08-Jun-2020 Instruction Type:Provider Instructions for Treatment How to Access Health Informa tion Online using Patient Portal and [employer] Apps Indication:Nonsmoker Start:11-May-2020 Instruction Type:Patient Education Patient Instructions Indication:Nonsmoker Start:11-May-2020 Instruction Type:Provider Instructions for Treatment How to Access Health Informa tion Online using Patient Portal and [employer] Apps Indication:BMI 40.0-44.9, adult Start:08-Feb-2020 Instruction Type:Patient Education Patient Instructions Indication:BMI 40.0-44.9, adult Start:08-Feb-2020 Instruction Type:Provider Instructions for Treatment How to access health informa tion online Indication:Nonsmoker Start:02-Nov-2019 Instruction Type:Patient Education How to access health informa tion online - Detail Indication:Nonsmoker Start:02-Nov-2019 Instruction Type:Patient Education Patient Instructions Indication:Nonsmoker Start:02-Nov-2019 Instruction Type:Provider Instructions for Treatment How to access health informa tion online Indication:Nonsmoker Start:03-Aug-2019 Instruction Type:Patient Education How to access health informa tion online - Detail Indication:Nonsmoker Start:03-Aug-2019 Instruction Type:Patient Education Patient Instructions Indication:Nonsmoker Start:03-Aug-2019 Instruction Type:Provider Instructions for Treatment How to access health informa tion online Indication:Nonsmoker Start:22-Jun-2019 Instruction Type:Patient Education How to access health informa tion online - Detail Indication:Nonsmoker Start:22-Jun-2019 Instruction Type:Patient Education Patient Instructions Indication:Nonsmoker Start:22-Jun-2019 Instruction Type:Provider Instructions for Treatment How to access health informa tion online Indication:Nonsmoker Start:01-Jun-2019 Instruction Type:Patient Education How to access health informa tion online - Detail Indication:Nonsmoker Start:01-Jun-2019 Instruction Type:Patient Education Patient Instructions Indication:Nonsmoker Start:01-Jun-2019 Instruction Type:Provider Instructions for Treatment How to access health informa tion online Indication:HTN (hypertension), benign Start:04-May-2019 Instruction Type:Patient Education How to access health informa tion online - Detail Indication:HTN (hypertension), benign Start:04-May-2019 Instruction Type:Patient Education Patient Instructions Indication:HTN (hypertension), benign Start:04-May-2019 Instruction Type:Provider Instructions for Treatment obesity counseling Indication:Abnormal glucose tolerance test (Renamed from Abnormal glucose tolerance test (GTT)) Start:04-Apr-2019 Instruction Type:Provider Instructions for Treatment How to access health informa tion online Indication:Nonsmoker Start:04-Apr-2019 Instruction Type:Patient Education How to access health informa tion online - Detail Indication:Nonsmoker Start:04-Apr-2019 Instruction Type:Patient Education Patient Instructions Indication:Nonsmoker Start:04-Apr-2019 Instruction Type:Provider Instructions for Treatment How to access health informa tion online Indication:Cellulitis of groin Start:15-Sep-2016 Instruction Type:Patient Education How to access health informa tion online - Detail Indication:Cellulitis of groin Start:15-Sep-2016 Instruction Type:Patient Education Patient Instructions Indication:Cellulitis of groin Start:15-Sep-2016 Instruction Type:Provider Instructions for Treatment How to access health informa tion online Indication:Cellulitis of groin Start:09-Sep-2016 Instruction Type:Patient Education How to access health informa tion online - Detail Indication:Cellulitis of groin Start:09-Sep-2016 Instruction Type:Patient Education Patient Instructions Indication:Cellulitis of groin Start:09-Sep-2016 Instruction Type:Provider Instructions for Treatment [facility]; [facility] Work Phone: Instructions* Name Dates Details Patient Instructions Indication:Nonsmoker Start:22-Oct-2022 Instruction Type:Provider Instructions for Treatment How to Access Health Informa tion Online using Patient Portal and [employer] Apps Indication:Nonsmoker Start:22-Oct-2022 Instruction Type:Patient Education Patient Instructions Indication:Nonsmoker Start:25-Sep-2022 Instruction Type:Provider Instructions for Treatment How to Access Health Informa tion Online using Patient Portal and [employer] Apps Indication:Nonsmoker Start:25-Sep-2022 Instruction Type:Patient Education Patient Instructions Indication:BMI 40.0-44.9, adult Start:19-Jun-2022 Instruction Type:Provider Instructions for Treatment How to Access Health Informa tion Online using Patient Portal and [employer] Apps Indication:BMI 40.0-44.9, adult Start:19-Jun-2022 Instruction Type:Patient Education Patient Instructions Indication:BMI 40.0-44.9, adult Start:19-Mar-2022 Instruction Type:Provider Instructions for Treatment How to Access Health Informa tion Online using Patient Portal and [employer] Apps Indication:BMI 40.0-44.9, adult Start:19-Mar-2022 Instruction Type:Patient Education Patient Instructions Indication:BMI 40.0-44.9, adult Start:11-Dec-2021 Instruction Type:Provider Instructions for Treatment How to Access Health Informa tion Online using Patient Portal and [employer] Apps Indication:BMI 40.0-44.9, adult Start:11-Dec-2021 Instruction Type:Patient Education Patient Instructions Indication:Type II diabetes mellitus, well controlled Start:05-Sep-2021 Instruction Type:Provider Instructions for Treatment How to Access Health Informa tion Online using Patient Portal and [employer] Apps Indication:Type II diabetes mellitus, well controlled Start:05-Sep-2021 Instruction Type:Patient Education Patient Instructions Indication:Nonsmoker Start:10-Jul-2021 Instruction Type:Provider Instructions for Treatment How to Access Health Informa tion Online using Patient Portal and [employer] Apps Indication:Nonsmoker Start:10-Jul-2021 Instruction Type:Patient Education obesity counseling Indication:Type II diabetes mellitus, well controlled Start:17-Jun-2021 Instruction Type:Provider Instructions for Treatment Patient Instructions Indication:Nonsmoker Start:17-Jun-2021 Instruction Type:Provider Instructions for Treatment How to Access Health Informa tion Online using Patient Portal and [employer] Apps Indication:Nonsmoker Start:17-Jun-2021 Instruction Type:Patient Education Patient Instructions Indication:BMI 40.0-44.9, adult Start:16-May-2021 Instruction Type:Provider Instructions for Treatment How to Access Health Informa tion Online using Patient Portal and [employer] Apps Indication:BMI 40.0-44.9, adult Start:16-May-2021 Instruction Type:Patient Education Patient Instructions Indication:BMI 36.0-36.9,adult Start:13-Feb-2021 Instruction Type:Provider Instructions for Treatment How to Access Health Informa tion Online using Patient Portal and [employer] Apps Indication:BMI 36.0-36.9,adult Start:13-Feb-2021 Instruction Type:Patient Education Patient Instructions Indication:BMI 40.0-44.9, adult Start:21-Nov-2020 Instruction Type:Provider Instructions for Treatment How to Access Health Informa tion Online using Patient Portal and [employer] Apps Indication:BMI 40.0-44.9, adult Start:21-Nov-2020 Instruction Type:Patient Education Patient Instructions Indication:BMI 40.0-44.9, adult Start:10-Oct-2020 Instruction Type:Provider Instructions for Treatment How to Access Health Informa tion Online using Patient Portal and [employer] Apps Indication:BMI 40.0-44.9, adult Start:10-Oct-2020 Instruction Type:Patient Education Patient Instructions Indication:BMI 40.0-44.9, adult Start:13-Sep-2020 Instruction Type:Provider Instructions for Treatment How to Access Health Informa tion Online using Patient Portal and [employer] Apps Indication:BMI 40.0-44.9, adult Start:13-Sep-2020 Instruction Type:Patient Education Patient Instructions Indication:Nonsmoker Start:22-Aug-2020 Instruction Type:Provider Instructions for Treatment How to Access Health Informa tion Online using Patient Portal and [employer] Apps Indication:Nonsmoker Start:22-Aug-2020 Instruction Type:Patient Education How to Access Health Informa tion Online using Patient Portal and [employer] Apps Indication:Nonsmoker Start:08-Jun-2020 Instruction Type:Patient Education Patient Instructions Indication:Nonsmoker Start:08-Jun-2020 Instruction Type:Provider Instructions for Treatment How to Access Health Informa tion Online using Patient Portal and [employer] Apps Indication:Nonsmoker Start:11-May-2020 Instruction Type:Patient Education Patient Instructions Indication:Nonsmoker Start:11-May-2020 Instruction Type:Provider Instructions for Treatment How to Access Health Informa tion Online using Patient Portal and [employer] Apps Indication:BMI 40.0-44.9, adult Start:08-Feb-2020 Instruction Type:Patient Education Patient Instructions Indication:BMI 40.0-44.9, adult Start:08-Feb-2020 Instruction Type:Provider Instructions for Treatment How to access health informa tion online Indication:Nonsmoker Start:02-Nov-2019 Instruction Type:Patient Education How to access health informa tion online - Detail Indication:Nonsmoker Start:02-Nov-2019 Instruction Type:Patient Education Patient Instructions Indication:Nonsmoker Start:02-Nov-2019 Instruction Type:Provider Instructions for Treatment How to access health informa tion online Indication:Nonsmoker Start:03-Aug-2019 Instruction Type:Patient Education How to access health informa tion online - Detail Indication:Nonsmoker Start:03-Aug-2019 Instruction Type:Patient Education Patient Instructions Indication:Nonsmoker Start:03-Aug-2019 Instruction Type:Provider Instructions for Treatment How to access health informa tion online Indication:Nonsmoker Start:22-Jun-2019 Instruction Type:Patient Education How to access health informa tion online - Detail Indication:Nonsmoker Start:22-Jun-2019 Instruction Type:Patient Education Patient Instructions Indication:Nonsmoker Start:22-Jun-2019 Instruction Type:Provider Instructions for Treatment How to access health informa tion online Indication:Nonsmoker Start:01-Jun-2019 Instruction Type:Patient Education How to access health informa tion online - Detail Indication:Nonsmoker Start:01-Jun-2019 Instruction Type:Patient Education Patient Instructions Indication:Nonsmoker Start:01-Jun-2019 Instruction Type:Provider Instructions for Treatment How to access health informa tion online Indication:HTN (hypertension), benign Start:04-May-2019 Instruction Type:Patient Education How to access health informa tion online - Detail Indication:HTN (hypertension), benign Start:04-May-2019 Instruction Type:Patient Education Patient Instructions Indication:HTN (hypertension), benign Start:04-May-2019 Instruction Type:Provider Instructions for Treatment obesity counseling Indication:Abnormal glucose tolerance test (Renamed from Abnormal glucose tolerance test (GTT)) Start:04-Apr-2019 Instruction Type:Provider Instructions for Treatment How to access health informa tion online Indication:Nonsmoker Start:04-Apr-2019 Instruction Type:Patient Education How to access health informa tion online - Detail Indication:Nonsmoker Start:04-Apr-2019 Instruction Type:Patient Education Patient Instructions Indication:Nonsmoker Start:04-Apr-2019 Instruction Type:Provider Instructions for Treatment How to access health informa tion online Indication:Cellulitis of groin Start:15-Sep-2016 Instruction Type:Patient Education How to access health informa tion online - Detail Indication:Cellulitis of groin Start:15-Sep-2016 Instruction Type:Patient Education Patient Instructions Indication:Cellulitis of groin Start:15-Sep-2016 Instruction Type:Provider Instructions for Treatment How to access health informa tion online Indication:Cellulitis of groin Start:09-Sep-2016 Instruction Type:Patient Education How to access health informa tion online - Detail Indication:Cellulitis of groin Start:09-Sep-2016 Instruction Type:Patient Education Patient Instructions Indication:Cellulitis of groin Start:09-Sep-2016 Instruction Type:Provider Instructions for Treatment [facility]; [facility] Work Phone: Instructions* Name Dates Details Patient Instructions Indication:Nonsmoker Start:22-Oct-2022 Instruction Type:Provider Instructions for Treatment How to Access Health Informa tion Online using Patient Portal and [employer] Apps Indication:Nonsmoker Start:22-Oct-2022 Instruction Type:Patient Education Patient Instructions Indication:Nonsmoker Start:25-Sep-2022 Instruction Type:Provider Instructions for Treatment How to Access Health Informa tion Online using Patient Portal and [employer] Apps Indication:Nonsmoker Start:25-Sep-2022 Instruction Type:Patient Education Patient Instructions Indication:BMI 40.0-44.9, adult Start:19-Jun-2022 Instruction Type:Provider Instructions for Treatment How to Access Health Informa tion Online using Patient Portal and [employer] Apps Indication:BMI 40.0-44.9, adult Start:19-Jun-2022 Instruction Type:Patient Education Patient Instructions Indication:BMI 40.0-44.9, adult Start:19-Mar-2022 Instruction Type:Provider Instructions for Treatment How to Access Health Informa tion Online using Patient Portal and [employer] Apps Indication:BMI 40.0-44.9, adult Start:19-Mar-2022 Instruction Type:Patient Education Patient Instructions Indication:BMI 40.0-44.9, adult Start:11-Dec-2021 Instruction Type:Provider Instructions for Treatment How to Access Health Informa tion Online using Patient Portal and [employer] Apps Indication:BMI 40.0-44.9, adult Start:11-Dec-2021 Instruction Type:Patient Education Patient Instructions Indication:Type II diabetes mellitus, well controlled Start:05-Sep-2021 Instruction Type:Provider Instructions for Treatment How to Access Health Informa tion Online using Patient Portal and [employer] Apps Indication:Type II diabetes mellitus, well controlled Start:05-Sep-2021 Instruction Type:Patient Education Patient Instructions Indication:Nonsmoker Start:10-Jul-2021 Instruction Type:Provider Instructions for Treatment How to Access Health Informa tion Online using Patient Portal and [employer] Apps Indication:Nonsmoker Start:10-Jul-2021 Instruction Type:Patient Education obesity counseling Indication:Type II diabetes mellitus, well controlled Start:17-Jun-2021 Instruction Type:Provider Instructions for Treatment Patient Instructions Indication:Nonsmoker Start:17-Jun-2021 Instruction Type:Provider Instructions for Treatment How to Access Health Informa tion Online using Patient Portal and [employer] Apps Indication:Nonsmoker Start:17-Jun-2021 Instruction Type:Patient Education Patient Instructions Indication:BMI 40.0-44.9, adult Start:16-May-2021 Instruction Type:Provider Instructions for Treatment How to Access Health Informa tion Online using Patient Portal and [employer] Apps Indication:BMI 40.0-44.9, adult Start:16-May-2021 Instruction Type:Patient Education Patient Instructions Indication:BMI 36.0-36.9,adult Start:13-Feb-2021 Instruction Type:Provider Instructions for Treatment How to Access Health Informa tion Online using Patient Portal and [employer] Apps Indication:BMI 36.0-36.9,adult Start:13-Feb-2021 Instruction Type:Patient Education Patient Instructions Indication:BMI 40.0-44.9, adult Start:21-Nov-2020 Instruction Type:Provider Instructions for Treatment How to Access Health Informa tion Online using Patient Portal and [employer] Apps Indication:BMI 40.0-44.9, adult Start:21-Nov-2020 Instruction Type:Patient Education Patient Instructions Indication:BMI 40.0-44.9, adult Start:10-Oct-2020 Instruction Type:Provider Instructions for Treatment How to Access Health Informa tion Online using Patient Portal and [employer] Apps Indication:BMI 40.0-44.9, adult Start:10-Oct-2020 Instruction Type:Patient Education Patient Instructions Indication:BMI 40.0-44.9, adult Start:13-Sep-2020 Instruction Type:Provider Instructions for Treatment How to Access Health Informa tion Online using Patient Portal and [employer] Apps Indication:BMI 40.0-44.9, adult Start:13-Sep-2020 Instruction Type:Patient Education Patient Instructions Indication:Nonsmoker Start:22-Aug-2020 Instruction Type:Provider Instructions for Treatment How to Access Health Informa tion Online using Patient Portal and [employer] Apps Indication:Nonsmoker Start:22-Aug-2020 Instruction Type:Patient Education How to Access Health Informa tion Online using Patient Portal and [employer] Apps Indication:Nonsmoker Start:08-Jun-2020 Instruction Type:Patient Education Patient Instructions Indication:Nonsmoker Start:08-Jun-2020 Instruction Type:Provider Instructions for Treatment How to Access Health Informa tion Online using Patient Portal and [employer] Apps Indication:Nonsmoker Start:11-May-2020 Instruction Type:Patient Education Patient Instructions Indication:Nonsmoker Start:11-May-2020 Instruction Type:Provider Instructions for Treatment How to Access Health Informa tion Online using Patient Portal and [employer] Apps Indication:BMI 40.0-44.9, adult Start:08-Feb-2020 Instruction Type:Patient Education Patient Instructions Indication:BMI 40.0-44.9, adult Start:08-Feb-2020 Instruction Type:Provider Instructions for Treatment How to access health informa tion online Indication:Nonsmoker Start:02-Nov-2019 Instruction Type:Patient Education How to access health informa tion online - Detail Indication:Nonsmoker Start:02-Nov-2019 Instruction Type:Patient Education Patient Instructions Indication:Nonsmoker Start:02-Nov-2019 Instruction Type:Provider Instructions for Treatment How to access health informa tion online Indication:Nonsmoker Start:03-Aug-2019 Instruction Type:Patient Education How to access health informa tion online - Detail Indication:Nonsmoker Start:03-Aug-2019 Instruction Type:Patient Education Patient Instructions Indication:Nonsmoker Start:03-Aug-2019 Instruction Type:Provider Instructions for Treatment How to access health informa tion online Indication:Nonsmoker Start:22-Jun-2019 Instruction Type:Patient Education How to access health informa tion online - Detail Indication:Nonsmoker Start:22-Jun-2019 Instruction Type:Patient Education Patient Instructions Indication:Nonsmoker Start:22-Jun-2019 Instruction Type:Provider Instructions for Treatment How to access health informa tion online Indication:Nonsmoker Start:01-Jun-2019 Instruction Type:Patient Education How to access health informa tion online - Detail Indication:Nonsmoker Start:01-Jun-2019 Instruction Type:Patient Education Patient Instructions Indication:Nonsmoker Start:01-Jun-2019 Instruction Type:Provider Instructions for Treatment How to access health informa tion online Indication:HTN (hypertension), benign Start:04-May-2019 Instruction Type:Patient Education How to access health informa tion online - Detail Indication:HTN (hypertension), benign Start:04-May-2019 Instruction Type:Patient Education Patient Instructions Indication:HTN (hypertension), benign Start:04-May-2019 Instruction Type:Provider Instructions for Treatment obesity counseling Indication:Abnormal glucose tolerance test (Renamed from Abnormal glucose tolerance test (GTT)) Start:04-Apr-2019 Instruction Type:Provider Instructions for Treatment How to access health informa tion online Indication:Nonsmoker Start:04-Apr-2019 Instruction Type:Patient Education How to access health informa tion online - Detail Indication:Nonsmoker Start:04-Apr-2019 Instruction Type:Patient Education Patient Instructions Indication:Nonsmoker Start:04-Apr-2019 Instruction Type:Provider Instructions for Treatment How to access health informa tion online Indication:Cellulitis of groin Start:15-Sep-2016 Instruction Type:Patient Education How to access health informa tion online - Detail Indication:Cellulitis of groin Start:15-Sep-2016 Instruction Type:Patient Education Patient Instructions Indication:Cellulitis of groin Start:15-Sep-2016 Instruction Type:Provider Instructions for Treatment How to access health informa tion online Indication:Cellulitis of groin Start:09-Sep-2016 Instruction Type:Patient Education How to access health informa tion online - Detail Indication:Cellulitis of groin Start:09-Sep-2016 Instruction Type:Patient Education Patient Instructions Indication:Cellulitis of groin Start:09-Sep-2016 Instruction Type:Provider Instructions for Treatment [facility]; [facility] Work Phone: Instructions* Name Dates Details Patient Instructions Indication:BMI 40.0-44.9, adult Start:01-Jan-2023 Instruction Type:Provider Instructions for Treatment How to Access Health Informa tion Online using Patient Portal and [employer] Apps Indication:BMI 40.0-44.9, adult Start:01-Jan-2023 Instruction Type:Patient Education Patient Instructions Indication:Nonsmoker Start:22-Oct-2022 Instruction Type:Provider Instructions for Treatment How to Access Health Informa tion Online using Patient Portal and [employer] Apps Indication:Nonsmoker Start:22-Oct-2022 Instruction Type:Patient Education Patient Instructions Indication:Nonsmoker Start:25-Sep-2022 Instruction Type:Provider Instructions for Treatment How to Access Health Informa tion Online using Patient Portal and [employer] Apps Indication:Nonsmoker Start:25-Sep-2022 Instruction Type:Patient Education Patient Instructions Indication:BMI 40.0-44.9, adult Start:19-Jun-2022 Instruction Type:Provider Instructions for Treatment How to Access Health Informa tion Online using Patient Portal and [employer] Apps Indication:BMI 40.0-44.9, adult Start:19-Jun-2022 Instruction Type:Patient Education Patient Instructions Indication:BMI 40.0-44.9, adult Start:19-Mar-2022 Instruction Type:Provider Instructions for Treatment How to Access Health Informa tion Online using Patient Portal and [employer] Apps Indication:BMI 40.0-44.9, adult Start:19-Mar-2022 Instruction Type:Patient Education Patient Instructions Indication:BMI 40.0-44.9, adult Start:11-Dec-2021 Instruction Type:Provider Instructions for Treatment How to Access Health Informa tion Online using Patient Portal and [employer] Apps Indication:BMI 40.0-44.9, adult Start:11-Dec-2021 Instruction Type:Patient Education Patient Instructions Indication:Type II diabetes mellitus, well controlled Start:05-Sep-2021 Instruction Type:Provider Instructions for Treatment How to Access Health Informa tion Online using Patient Portal and [employer] Apps Indication:Type II diabetes mellitus, well controlled Start:05-Sep-2021 Instruction Type:Patient Education Patient Instructions Indication:Nonsmoker Start:10-Jul-2021 Instruction Type:Provider Instructions for Treatment How to Access Health Informa tion Online using Patient Portal and [employer] Apps Indication:Nonsmoker Start:10-Jul-2021 Instruction Type:Patient Education obesity counseling Indication:Type II diabetes mellitus, well controlled Start:17-Jun-2021 Instruction Type:Provider Instructions for Treatment Patient Instructions Indication:Nonsmoker Start:17-Jun-2021 Instruction Type:Provider Instructions for Treatment How to Access Health Informa tion Online using Patient Portal and [employer] Apps Indication:Nonsmoker Start:17-Jun-2021 Instruction Type:Patient Education Patient Instructions Indication:BMI 40.0-44.9, adult Start:16-May-2021 Instruction Type:Provider Instructions for Treatment How to Access Health Informa tion Online using Patient Portal and [employer] Apps Indication:BMI 40.0-44.9, adult Start:16-May-2021 Instruction Type:Patient Education Patient Instructions Indication:BMI 36.0-36.9,adult Start:13-Feb-2021 Instruction Type:Provider Instructions for Treatment How to Access Health Informa tion Online using Patient Portal and [employer] Apps Indication:BMI 36.0-36.9,adult Start:13-Feb-2021 Instruction Type:Patient Education Patient Instructions Indication:BMI 40.0-44.9, adult Start:21-Nov-2020 Instruction Type:Provider Instructions for Treatment How to Access Health Informa tion Online using Patient Portal and [employer] Apps Indication:BMI 40.0-44.9, adult Start:21-Nov-2020 Instruction Type:Patient Education Patient Instructions Indication:BMI 40.0-44.9, adult Start:10-Oct-2020 Instruction Type:Provider Instructions for Treatment How to Access Health Informa tion Online using Patient Portal and [employer] Apps Indication:BMI 40.0-44.9, adult Start:10-Oct-2020 Instruction Type:Patient Education Patient Instructions Indication:BMI 40.0-44.9, adult Start:13-Sep-2020 Instruction Type:Provider Instructions for Treatment How to Access Health Informa tion Online using Patient Portal and [employer] Apps Indication:BMI 40.0-44.9, adult Start:13-Sep-2020 Instruction Type:Patient Education Patient Instructions Indication:Nonsmoker Start:22-Aug-2020 Instruction Type:Provider Instructions for Treatment How to Access Health Informa tion Online using Patient Portal and [employer] Apps Indication:Nonsmoker Start:22-Aug-2020 Instruction Type:Patient Education How to Access Health Informa tion Online using Patient Portal and [employer] Apps Indication:Nonsmoker Start:08-Jun-2020 Instruction Type:Patient Education Patient Instructions Indication:Nonsmoker Start:08-Jun-2020 Instruction Type:Provider Instructions for Treatment How to Access Health Informa tion Online using Patient Portal and [employer] Apps Indication:Nonsmoker Start:11-May-2020 Instruction Type:Patient Education Patient Instructions Indication:Nonsmoker Start:11-May-2020 Instruction Type:Provider Instructions for Treatment How to Access Health Informa tion Online using Patient Portal and [employer] Apps Indication:BMI 40.0-44.9, adult Start:08-Feb-2020 Instruction Type:Patient Education Patient Instructions Indication:BMI 40.0-44.9, adult Start:08-Feb-2020 Instruction Type:Provider Instructions for Treatment How to access health informa tion online Indication:Nonsmoker Start:02-Nov-2019 Instruction Type:Patient Education How to access health informa tion online - Detail Indication:Nonsmoker Start:02-Nov-2019 Instruction Type:Patient Education Patient Instructions Indication:Nonsmoker Start:02-Nov-2019 Instruction Type:Provider Instructions for Treatment How to access health informa tion online Indication:Nonsmoker Start:03-Aug-2019 Instruction Type:Patient Education How to access health informa tion online - Detail Indication:Nonsmoker Start:03-Aug-2019 Instruction Type:Patient Education Patient Instructions Indication:Nonsmoker Start:03-Aug-2019 Instruction Type:Provider Instructions for Treatment How to access health informa tion online Indication:Nonsmoker Start:22-Jun-2019 Instruction Type:Patient Education How to access health informa tion online - Detail Indication:Nonsmoker Start:22-Jun-2019 Instruction Type:Patient Education Patient Instructions Indication:Nonsmoker Start:22-Jun-2019 Instruction Type:Provider Instructions for Treatment How to access health informa tion online Indication:Nonsmoker Start:01-Jun-2019 Instruction Type:Patient Education How to access health informa tion online - Detail Indication:Nonsmoker Start:01-Jun-2019 Instruction Type:Patient Education Patient Instructions Indication:Nonsmoker Start:01-Jun-2019 Instruction Type:Provider Instructions for Treatment How to access health informa tion online Indication:HTN (hypertension), benign Start:04-May-2019 Instruction Type:Patient Education How to access health informa tion online - Detail Indication:HTN (hypertension), benign Start:04-May-2019 Instruction Type:Patient Education Patient Instructions Indication:HTN (hypertension), benign Start:04-May-2019 Instruction Type:Provider Instructions for Treatment obesity counseling Indication:Abnormal glucose tolerance test (Renamed from Abnormal glucose tolerance test (GTT)) Start:04-Apr-2019 Instruction Type:Provider Instructions for Treatment How to access health informa tion online Indication:Nonsmoker Start:04-Apr-2019 Instruction Type:Patient Education How to access health informa tion online - Detail Indication:Nonsmoker Start:04-Apr-2019 Instruction Type:Patient Education Patient Instructions Indication:Nonsmoker Start:04-Apr-2019 Instruction Type:Provider Instructions for Treatment How to access health informa tion online Indication:Cellulitis of groin Start:15-Sep-2016 Instruction Type:Patient Education How to access health informa tion online - Detail Indication:Cellulitis of groin Start:15-Sep-2016 Instruction Type:Patient Education Patient Instructions Indication:Cellulitis of groin Start:15-Sep-2016 Instruction Type:Provider Instructions for Treatment How to access health informa tion online Indication:Cellulitis of groin Start:09-Sep-2016 Instruction Type:Patient Education How to access health informa tion online - Detail Indication:Cellulitis of groin Start:09-Sep-2016 Instruction Type:Patient Education Patient Instructions Indication:Cellulitis of groin Start:09-Sep-2016 Instruction Type:Provider Instructions for Treatment [facility]; [facility] Work Phone: Instructions* Name Dates Details Patient Instructions Indication:BMI 40.0-44.9, adult Start:01-Jan-2023 Instruction Type:Provider Instructions for Treatment How to Access Health Informa tion Online using Patient Portal and [employer] Apps Indication:BMI 40.0-44.9, adult Start:01-Jan-2023 Instruction Type:Patient Education Patient Instructions Indication:Nonsmoker Start:22-Oct-2022 Instruction Type:Provider Instructions for Treatment How to Access Health Informa tion Online using Patient Portal and [employer] Apps Indication:Nonsmoker Start:22-Oct-2022 Instruction Type:Patient Education Patient Instructions Indication:Nonsmoker Start:25-Sep-2022 Instruction Type:Provider Instructions for Treatment How to Access Health Informa tion Online using Patient Portal and [employer] Apps Indication:Nonsmoker Start:25-Sep-2022 Instruction Type:Patient Education Patient Instructions Indication:BMI 40.0-44.9, adult Start:19-Jun-2022 Instruction Type:Provider Instructions for Treatment How to Access Health Informa tion Online using Patient Portal and [employer] Apps Indication:BMI 40.0-44.9, adult Start:19-Jun-2022 Instruction Type:Patient Education Patient Instructions Indication:BMI 40.0-44.9, adult Start:19-Mar-2022 Instruction Type:Provider Instructions for Treatment How to Access Health Informa tion Online using Patient Portal and [employer] Apps Indication:BMI 40.0-44.9, adult Start:19-Mar-2022 Instruction Type:Patient Education Patient Instructions Indication:BMI 40.0-44.9, adult Start:11-Dec-2021 Instruction Type:Provider Instructions for Treatment How to Access Health Informa tion Online using Patient Portal and [employer] Apps Indication:BMI 40.0-44.9, adult Start:11-Dec-2021 Instruction Type:Patient Education Patient Instructions Indication:Type II diabetes mellitus, well controlled Start:05-Sep-2021 Instruction Type:Provider Instructions for Treatment How to Access Health Informa tion Online using Patient Portal and [employer] Apps Indication:Type II diabetes mellitus, well controlled Start:05-Sep-2021 Instruction Type:Patient Education Patient Instructions Indication:Nonsmoker Start:10-Jul-2021 Instruction Type:Provider Instructions for Treatment How to Access Health Informa tion Online using Patient Portal and [employer] Apps Indication:Nonsmoker Start:10-Jul-2021 Instruction Type:Patient Education obesity counseling Indication:Type II diabetes mellitus, well controlled Start:17-Jun-2021 Instruction Type:Provider Instructions for Treatment Patient Instructions Indication:Nonsmoker Start:17-Jun-2021 Instruction Type:Provider Instructions for Treatment How to Access Health Informa tion Online using Patient Portal and [employer] Apps Indication:Nonsmoker Start:17-Jun-2021 Instruction Type:Patient Education Patient Instructions Indication:BMI 40.0-44.9, adult Start:16-May-2021 Instruction Type:Provider Instructions for Treatment How to Access Health Informa tion Online using Patient Portal and [employer] Apps Indication:BMI 40.0-44.9, adult Start:16-May-2021 Instruction Type:Patient Education Patient Instructions Indication:BMI 36.0-36.9,adult Start:13-Feb-2021 Instruction Type:Provider Instructions for Treatment How to Access Health Informa tion Online using Patient Portal and [employer] Apps Indication:BMI 36.0-36.9,adult Start:13-Feb-2021 Instruction Type:Patient Education Patient Instructions Indication:BMI 40.0-44.9, adult Start:21-Nov-2020 Instruction Type:Provider Instructions for Treatment How to Access Health Informa tion Online using Patient Portal and [employer] Apps Indication:BMI 40.0-44.9, adult Start:21-Nov-2020 Instruction Type:Patient Education Patient Instructions Indication:BMI 40.0-44.9, adult Start:10-Oct-2020 Instruction Type:Provider Instructions for Treatment How to Access Health Informa tion Online using Patient Portal and [employer] Apps Indication:BMI 40.0-44.9, adult Start:10-Oct-2020 Instruction Type:Patient Education Patient Instructions Indication:BMI 40.0-44.9, adult Start:13-Sep-2020 Instruction Type:Provider Instructions for Treatment How to Access Health Informa tion Online using Patient Portal and [employer] Apps Indication:BMI 40.0-44.9, adult Start:13-Sep-2020 Instruction Type:Patient Education Patient Instructions Indication:Nonsmoker Start:22-Aug-2020 Instruction Type:Provider Instructions for Treatment How to Access Health Informa tion Online using Patient Portal and [employer] Apps Indication:Nonsmoker Start:22-Aug-2020 Instruction Type:Patient Education How to Access Health Informa tion Online using Patient Portal and [employer] Apps Indication:Nonsmoker Start:08-Jun-2020 Instruction Type:Patient Education Patient Instructions Indication:Nonsmoker Start:08-Jun-2020 Instruction Type:Provider Instructions for Treatment How to Access Health Informa tion Online using Patient Portal and [employer] Apps Indication:Nonsmoker Start:11-May-2020 Instruction Type:Patient Education Patient Instructions Indication:Nonsmoker Start:11-May-2020 Instruction Type:Provider Instructions for Treatment How to Access Health Informa tion Online using Patient Portal and [employer] Apps Indication:BMI 40.0-44.9, adult Start:08-Feb-2020 Instruction Type:Patient Education Patient Instructions Indication:BMI 40.0-44.9, adult Start:08-Feb-2020 Instruction Type:Provider Instructions for Treatment How to access health informa tion online Indication:Nonsmoker Start:02-Nov-2019 Instruction Type:Patient Education How to access health informa tion online - Detail Indication:Nonsmoker Start:02-Nov-2019 Instruction Type:Patient Education Patient Instructions Indication:Nonsmoker Start:02-Nov-2019 Instruction Type:Provider Instructions for Treatment How to access health informa tion online Indication:Nonsmoker Start:03-Aug-2019 Instruction Type:Patient Education How to access health informa tion online - Detail Indication:Nonsmoker Start:03-Aug-2019 Instruction Type:Patient Education Patient Instructions Indication:Nonsmoker Start:03-Aug-2019 Instruction Type:Provider Instructions for Treatment How to access health informa tion online Indication:Nonsmoker Start:22-Jun-2019 Instruction Type:Patient Education How to access health informa tion online - Detail Indication:Nonsmoker Start:22-Jun-2019 Instruction Type:Patient Education Patient Instructions Indication:Nonsmoker Start:22-Jun-2019 Instruction Type:Provider Instructions for Treatment How to access health informa tion online Indication:Nonsmoker Start:01-Jun-2019 Instruction Type:Patient Education How to access health informa tion online - Detail Indication:Nonsmoker Start:01-Jun-2019 Instruction Type:Patient Education Patient Instructions Indication:Nonsmoker Start:01-Jun-2019 Instruction Type:Provider Instructions for Treatment How to access health informa tion online Indication:HTN (hypertension), benign Start:04-May-2019 Instruction Type:Patient Education How to access health informa tion online - Detail Indication:HTN (hypertension), benign Start:04-May-2019 Instruction Type:Patient Education Patient Instructions Indication:HTN (hypertension), benign Start:04-May-2019 Instruction Type:Provider Instructions for Treatment obesity counseling Indication:Abnormal glucose tolerance test (Renamed from Abnormal glucose tolerance test (GTT)) Start:04-Apr-2019 Instruction Type:Provider Instructions for Treatment How to access health informa tion online Indication:Nonsmoker Start:04-Apr-2019 Instruction Type:Patient Education How to access health informa tion online - Detail Indication:Nonsmoker Start:04-Apr-2019 Instruction Type:Patient Education Patient Instructions Indication:Nonsmoker Start:04-Apr-2019 Instruction Type:Provider Instructions for Treatment How to access health informa tion online Indication:Cellulitis of groin Start:15-Sep-2016 Instruction Type:Patient Education How to access health informa tion online - Detail Indication:Cellulitis of groin Start:15-Sep-2016 Instruction Type:Patient Education Patient Instructions Indication:Cellulitis of groin Start:15-Sep-2016 Instruction Type:Provider Instructions for Treatment How to access health informa tion online Indication:Cellulitis of groin Start:09-Sep-2016 Instruction Type:Patient Education How to access health informa tion online - Detail Indication:Cellulitis of groin Start:09-Sep-2016 Instruction Type:Patient Education Patient Instructions Indication:Cellulitis of groin Start:09-Sep-2016 Instruction Type:Provider Instructions for Treatment [facility] Work Phone: reason for referral (narrative)No reason for referral information available[facility] Work [facility]: Family History No Family History Records FoundUnknown Family Member Name Dates Details Father Comments:Cardiac Status:Active Mother Comments:Breast cancer, diab etes Status:Active Unknown Family Member Name Dates Details Father Comments:Cardiac Status:Active Mother Comments:Breast cancer, diab etes Status:Active Unknown Family Member Name Dates Details Father Comments:Cardiac Status:Active Mother Comments:Breast cancer, diab etes Status:Active Unknown Family Member Name Dates Details Father Comments:Cardiac Status:Active Mother Comments:Breast cancer, diab etes Status:Active Unknown Family Member Name Dates Details Father Comments:Cardiac Status:Active Mother Comments:Breast cancer, diab etes Status:Active Unknown Family Member Name Dates Details Father Comments:Cardiac Status:Active Mother Comments:Breast cancer, diab etes Status:Active Unknown Family Member Name Dates Details Father Comments:Cardiac Status:Active Mother Comments:Breast cancer, diab etes Status:Active Unknown Family Member Name Dates Details Father Comments:Cardiac Status:Active Mother Comments:Breast cancer, diab etes Status:Active Unknown Family Member Name Dates Details Father Comments:Cardiac Status:Active Mother Comments:Breast cancer, diab etes Status:Active Unknown Family Member Name Dates Details Father Comments:Cardiac Status:Active Mother Comments:Breast cancer, diab etes Status:Active Unknown Family Member Name Dates Details Father Comments:Cardiac Status:Active Mother Comments:Breast cancer, diab etes Status:Active Unknown Family Member Name Dates Details Father Comments:Cardiac Status:Active Mother Comments:Breast cancer, diab etes Status:Active Unknown Family Member Name Dates Details Father Comments:Cardiac Status:Active Mother Comments:Breast cancer, diab etes Status:Active Unknown Family Member Name Dates Details Father Comments:Cardiac Status:Active Mother Comments:Breast cancer, diab etes Status:Active Unknown Family Member Name Dates Details Father Comments:Cardiac Status:Active Mother Comments:Breast cancer, diab etes Status:Active Unknown Family Member Name Dates Details Father Comments:Cardiac Status:Active Mother Comments:Breast cancer, diab etes Status:Active Unknown Family Member Name Dates Details Father Comments:Cardiac Status:Active Mother Comments:Breast cancer, diab etes Status:Active Unknown Family Member Name Dates Details Father Comments:Cardiac Status:Active Mother Comments:Breast cancer, diab etes Status:Active Unknown Family Member Name Dates Details Father Comments:Cardiac Status:Active Mother Comments:Breast cancer, diab etes Status:Active Unknown Family Member Name Dates Details Father Comments:Cardiac Status:Active Mother Comments:Breast cancer, diab etes Status:Active Unknown Family Member Name Dates Details Father Comments:Cardiac Status:Active Mother Comments:Breast cancer, diab etes Status:Active Unknown Family Member Name Dates Details Father Comments:Cardiac Status:Active Mother Comments:Breast cancer, diab etes Status:Active Unknown Family Member Name Dates Details Father Comments:Cardiac Status:Active Mother Comments:Breast cancer, diab etes Status:Active Unknown Family Member Name Dates Details Father Comments:Cardiac Status:Active Mother Comments:Breast cancer, diab etes Status:Active Unknown Family Member Name Dates Details Father Comments:Cardiac Status:Active Mother Comments:Breast cancer, diab etes Status:Active Unknown Family Member Name Dates Details Father Comments:Cardiac Status:Active Mother Comments:Breast cancer, diab etes Status:Active Unknown Family Member Name Dates Details Father Comments:Cardiac Status:Active Mother Comments:Breast cancer, diab etes Status:Active Unknown Family Member Name Dates Details Father Comments:Cardiac Status:Active Mother Comments:Breast cancer, diab etes Status:Active Unknown Family Member Name Dates Details Father Comments:Cardiac Status:Active Mother Comments:Breast cancer, diab etes Status:Active Relationship Condition Age at Onset Recorded Date/T denice mother Anemia Unknown Arthritis Unknown Malignant neoplasm of breast Unknown Cerebrovascular accident (CVA) Unknown father Myocardial infarction Unknown Cardiac disease Unknown grandmother Disorder of liver Unknown son Anxiety Unknown Unknown Family Member Name Dates Details Father Comments:Cardiac Status:Active Mother Comments:Breast cancer, diab etes Status:Active Unknown Family Member Name Dates Details Father Comments:Cardiac Status:Active Mother Comments:Breast cancer, diab etes Status:Active Unknown Family Member Name Dates Details Father Comments:Cardiac Status:Active Mother Comments:Breast cancer, diab etes Status:Active Unknown Family Member Name Dates Details Father Comments:Cardiac Status:Active Mother Comments:Breast cancer, diab etes Status:Active Instructions Name Dates Details How to access health informa tion online Indication:Nonsmoker Start:03-Aug-2019 Instruction Type:Patient Education How to access health informa tion online - Detail Indication:Nonsmoker Start:03-Aug-2019 Instruction Type:Patient Education Patient Instructions Indication:Nonsmoker Start:03-Aug-2019 Instruction Type:Provider Instructions for Treatment How to access health informa tion online Indication:Nonsmoker Start:22-Jun-2019 Instruction Type:Patient Education How to access health informa tion online - Detail Indication:Nonsmoker Start:22-Jun-2019 Instruction Type:Patient Education Patient Instructions Indication:Nonsmoker Start:22-Jun-2019 Instruction Type:Provider Instructions for Treatment How to access health informa tion online Indication:Nonsmoker Start:01-Jun-2019 Instruction Type:Patient Education How to access health informa tion online - Detail Indication:Nonsmoker Start:01-Jun-2019 Instruction Type:Patient Education Patient Instructions Indication:Nonsmoker Start:01-Jun-2019 Instruction Type:Provider Instructions for Treatment How to access health informa tion online Indication:HTN (hypertension), benign Start:04-May-2019 Instruction Type:Patient Education How to access health informa tion online - Detail Indication:HTN (hypertension), benign Start:04-May-2019 Instruction Type:Patient Education Patient Instructions Indication:HTN (hypertension), benign Start:04-May-2019 Instruction Type:Provider Instructions for Treatment obesity counseling Indication:Abnormal glucose tolerance test (Renamed from Abnormal glucose tolerance test (GTT)) Start:04-Apr-2019 Instruction Type:Provider Instructions for Treatment How to access health informa tion online Indication:Nonsmoker Start:04-Apr-2019 Instruction Type:Patient Education How to access health informa tion online - Detail Indication:Nonsmoker Start:04-Apr-2019 Instruction Type:Patient Education Patient Instructions Indication:Nonsmoker Start:04-Apr-2019 Instruction Type:Provider Instructions for Treatment How to access health informa tion online Indication:Cellulitis of groin Start:15-Sep-2016 Instruction Type:Patient Education How to access health informa tion online - Detail Indication:Cellulitis of groin Start:15-Sep-2016 Instruction Type:Patient Education Patient Instructions Indication:Cellulitis of groin Start:15-Sep-2016 Instruction Type:Provider Instructions for Treatment How to access health informa tion online Indication:Cellulitis of groin Start:09-Sep-2016 Instruction Type:Patient Education How to access health informa tion online - Detail Indication:Cellulitis of groin Start:09-Sep-2016 Instruction Type:Patient Education Patient Instructions Indication:Cellulitis of groin Start:09-Sep-2016 Instruction Type:Provider Instructions for Treatment Name Dates Details How to access health informa tion online Indication:Nonsmoker Start:02-Nov-2019 Instruction Type:Patient Education How to access health informa tion online - Detail Indication:Nonsmoker Start:02-Nov-2019 Instruction Type:Patient Education Patient Instructions Indication:Nonsmoker Start:02-Nov-2019 Instruction Type:Provider Instructions for Treatment How to access health informa tion online Indication:Nonsmoker Start:03-Aug-2019 Instruction Type:Patient Education How to access health informa tion online - Detail Indication:Nonsmoker Start:03-Aug-2019 Instruction Type:Patient Education Patient Instructions Indication:Nonsmoker Start:03-Aug-2019 Instruction Type:Provider Instructions for Treatment How to access health informa tion online Indication:Nonsmoker Start:22-Jun-2019 Instruction Type:Patient Education How to access health informa tion online - Detail Indication:Nonsmoker Start:22-Jun-2019 Instruction Type:Patient Education Patient Instructions Indication:Nonsmoker Start:22-Jun-2019 Instruction Type:Provider Instructions for Treatment How to access health informa tion online Indication:Nonsmoker Start:01-Jun-2019 Instruction Type:Patient Education How to access health informa tion online - Detail Indication:Nonsmoker Start:01-Jun-2019 Instruction Type:Patient Education Patient Instructions Indication:Nonsmoker Start:01-Jun-2019 Instruction Type:Provider Instructions for Treatment How to access health informa tion online Indication:HTN (hypertension), benign Start:04-May-2019 Instruction Type:Patient Education How to access health informa tion online - Detail Indication:HTN (hypertension), benign Start:04-May-2019 Instruction Type:Patient Education Patient Instructions Indication:HTN (hypertension), benign Start:04-May-2019 Instruction Type:Provider Instructions for Treatment obesity counseling Indication:Abnormal glucose tolerance test (Renamed from Abnormal glucose tolerance test (GTT)) Start:04-Apr-2019 Instruction Type:Provider Instructions for Treatment How to access health informa tion online Indication:Nonsmoker Start:04-Apr-2019 Instruction Type:Patient Education How to access health informa tion online - Detail Indication:Nonsmoker Start:04-Apr-2019 Instruction Type:Patient Education Patient Instructions Indication:Nonsmoker Start:04-Apr-2019 Instruction Type:Provider Instructions for Treatment How to access health informa tion online Indication:Cellulitis of groin Start:15-Sep-2016 Instruction Type:Patient Education How to access health informa tion online - Detail Indication:Cellulitis of groin Start:15-Sep-2016 Instruction Type:Patient Education Patient Instructions Indication:Cellulitis of groin Start:15-Sep-2016 Instruction Type:Provider Instructions for Treatment How to access health informa tion online Indication:Cellulitis of groin Start:09-Sep-2016 Instruction Type:Patient Education How to access health informa tion online - Detail Indication:Cellulitis of groin Start:09-Sep-2016 Instruction Type:Patient Education Patient Instructions Indication:Cellulitis of groin Start:09-Sep-2016 Instruction Type:Provider Instructions for Treatment Name Dates Details How to access health informa tion online Indication:Nonsmoker Start:02-Nov-2019 Instruction Type:Patient Education How to access health informa tion online - Detail Indication:Nonsmoker Start:02-Nov-2019 Instruction Type:Patient Education Patient Instructions Indication:Nonsmoker Start:02-Nov-2019 Instruction Type:Provider Instructions for Treatment How to access health informa tion online Indication:Nonsmoker Start:03-Aug-2019 Instruction Type:Patient Education How to access health informa tion online - Detail Indication:Nonsmoker Start:03-Aug-2019 Instruction Type:Patient Education Patient Instructions Indication:Nonsmoker Start:03-Aug-2019 Instruction Type:Provider Instructions for Treatment How to access health informa tion online Indication:Nonsmoker Start:22-Jun-2019 Instruction Type:Patient Education How to access health informa tion online - Detail Indication:Nonsmoker Start:22-Jun-2019 Instruction Type:Patient Education Patient Instructions Indication:Nonsmoker Start:22-Jun-2019 Instruction Type:Provider Instructions for Treatment How to access health informa tion online Indication:Nonsmoker Start:01-Jun-2019 Instruction Type:Patient Education How to access health informa tion online - Detail Indication:Nonsmoker Start:01-Jun-2019 Instruction Type:Patient Education Patient Instructions Indication:Nonsmoker Start:01-Jun-2019 Instruction Type:Provider Instructions for Treatment How to access health informa tion online Indication:HTN (hypertension), benign Start:04-May-2019 Instruction Type:Patient Education How to access health informa tion online - Detail Indication:HTN (hypertension), benign Start:04-May-2019 Instruction Type:Patient Education Patient Instructions Indication:HTN (hypertension), benign Start:04-May-2019 Instruction Type:Provider Instructions for Treatment obesity counseling Indication:Abnormal glucose tolerance test (Renamed from Abnormal glucose tolerance test (GTT)) Start:04-Apr-2019 Instruction Type:Provider Instructions for Treatment How to access health informa tion online Indication:Nonsmoker Start:04-Apr-2019 Instruction Type:Patient Education How to access health informa tion online - Detail Indication:Nonsmoker Start:04-Apr-2019 Instruction Type:Patient Education Patient Instructions Indication:Nonsmoker Start:04-Apr-2019 Instruction Type:Provider Instructions for Treatment How to access health informa tion online Indication:Cellulitis of groin Start:15-Sep-2016 Instruction Type:Patient Education How to access health informa tion online - Detail Indication:Cellulitis of groin Start:15-Sep-2016 Instruction Type:Patient Education Patient Instructions Indication:Cellulitis of groin Start:15-Sep-2016 Instruction Type:Provider Instructions for Treatment How to access health informa tion online Indication:Cellulitis of groin Start:09-Sep-2016 Instruction Type:Patient Education How to access health informa tion online - Detail Indication:Cellulitis of groin Start:09-Sep-2016 Instruction Type:Patient Education Patient Instructions Indication:Cellulitis of groin Start:09-Sep-2016 Instruction Type:Provider Instructions for Treatment Name Dates Details How to access health informa tion online Indication:Nonsmoker Start:02-Nov-2019 Instruction Type:Patient Education How to access health informa tion online - Detail Indication:Nonsmoker Start:02-Nov-2019 Instruction Type:Patient Education Patient Instructions Indication:Nonsmoker Start:02-Nov-2019 Instruction Type:Provider Instructions for Treatment How to access health informa tion online Indication:Nonsmoker Start:03-Aug-2019 Instruction Type:Patient Education How to access health informa tion online - Detail Indication:Nonsmoker Start:03-Aug-2019 Instruction Type:Patient Education Patient Instructions Indication:Nonsmoker Start:03-Aug-2019 Instruction Type:Provider Instructions for Treatment How to access health informa tion online Indication:Nonsmoker Start:22-Jun-2019 Instruction Type:Patient Education How to access health informa tion online - Detail Indication:Nonsmoker Start:22-Jun-2019 Instruction Type:Patient Education Patient Instructions Indication:Nonsmoker Start:22-Jun-2019 Instruction Type:Provider Instructions for Treatment How to access health informa tion online Indication:Nonsmoker Start:01-Jun-2019 Instruction Type:Patient Education How to access health informa tion online - Detail Indication:Nonsmoker Start:01-Jun-2019 Instruction Type:Patient Education Patient Instructions Indication:Nonsmoker Start:01-Jun-2019 Instruction Type:Provider Instructions for Treatment How to access health informa tion online Indication:HTN (hypertension), benign Start:04-May-2019 Instruction Type:Patient Education How to access health informa tion online - Detail Indication:HTN (hypertension), benign Start:04-May-2019 Instruction Type:Patient Education Patient Instructions Indication:HTN (hypertension), benign Start:04-May-2019 Instruction Type:Provider Instructions for Treatment obesity counseling Indication:Abnormal glucose tolerance test (Renamed from Abnormal glucose tolerance test (GTT)) Start:04-Apr-2019 Instruction Type:Provider Instructions for Treatment How to access health informa tion online Indication:Nonsmoker Start:04-Apr-2019 Instruction Type:Patient Education How to access health informa tion online - Detail Indication:Nonsmoker Start:04-Apr-2019 Instruction Type:Patient Education Patient Instructions Indication:Nonsmoker Start:04-Apr-2019 Instruction Type:Provider Instructions for Treatment How to access health informa tion online Indication:Cellulitis of groin Start:15-Sep-2016 Instruction Type:Patient Education How to access health informa tion online - Detail Indication:Cellulitis of groin Start:15-Sep-2016 Instruction Type:Patient Education Patient Instructions Indication:Cellulitis of groin Start:15-Sep-2016 Instruction Type:Provider Instructions for Treatment How to access health informa tion online Indication:Cellulitis of groin Start:09-Sep-2016 Instruction Type:Patient Education How to access health informa tion online - Detail Indication:Cellulitis of groin Start:09-Sep-2016 Instruction Type:Patient Education Patient Instructions Indication:Cellulitis of groin Start:09-Sep-2016 Instruction Type:Provider Instructions for Treatment Name Dates Details How to access health informa tion online Indication:Nonsmoker Start:02-Nov-2019 Instruction Type:Patient Education How to access health informa tion online - Detail Indication:Nonsmoker Start:02-Nov-2019 Instruction Type:Patient Education Patient Instructions Indication:Nonsmoker Start:02-Nov-2019 Instruction Type:Provider Instructions for Treatment How to access health informa tion online Indication:Nonsmoker Start:03-Aug-2019 Instruction Type:Patient Education How to access health informa tion online - Detail Indication:Nonsmoker Start:03-Aug-2019 Instruction Type:Patient Education Patient Instructions Indication:Nonsmoker Start:03-Aug-2019 Instruction Type:Provider Instructions for Treatment How to access health informa tion online Indication:Nonsmoker Start:22-Jun-2019 Instruction Type:Patient Education How to access health informa tion online - Detail Indication:Nonsmoker Start:22-Jun-2019 Instruction Type:Patient Education Patient Instructions Indication:Nonsmoker Start:22-Jun-2019 Instruction Type:Provider Instructions for Treatment How to access health informa tion online Indication:Nonsmoker Start:01-Jun-2019 Instruction Type:Patient Education How to access health informa tion online - Detail Indication:Nonsmoker Start:01-Jun-2019 Instruction Type:Patient Education Patient Instructions Indication:Nonsmoker Start:01-Jun-2019 Instruction Type:Provider Instructions for Treatment How to access health informa tion online Indication:HTN (hypertension), benign Start:04-May-2019 Instruction Type:Patient Education How to access health informa tion online - Detail Indication:HTN (hypertension), benign Start:04-May-2019 Instruction Type:Patient Education Patient Instructions Indication:HTN (hypertension), benign Start:04-May-2019 Instruction Type:Provider Instructions for Treatment obesity counseling Indication:Abnormal glucose tolerance test (Renamed from Abnormal glucose tolerance test (GTT)) Start:04-Apr-2019 Instruction Type:Provider Instructions for Treatment How to access health informa tion online Indication:Nonsmoker Start:04-Apr-2019 Instruction Type:Patient Education How to access health informa tion online - Detail Indication:Nonsmoker Start:04-Apr-2019 Instruction Type:Patient Education Patient Instructions Indication:Nonsmoker Start:04-Apr-2019 Instruction Type:Provider Instructions for Treatment How to access health informa tion online Indication:Cellulitis of groin Start:15-Sep-2016 Instruction Type:Patient Education How to access health informa tion online - Detail Indication:Cellulitis of groin Start:15-Sep-2016 Instruction Type:Patient Education Patient Instructions Indication:Cellulitis of groin Start:15-Sep-2016 Instruction Type:Provider Instructions for Treatment How to access health informa tion online Indication:Cellulitis of groin Start:09-Sep-2016 Instruction Type:Patient Education How to access health informa tion online - Detail Indication:Cellulitis of groin Start:09-Sep-2016 Instruction Type:Patient Education Patient Instructions Indication:Cellulitis of groin Start:09-Sep-2016 Instruction Type:Provider Instructions for Treatment Name Dates Details How to Access Health Informa tion Online using Patient Portal and [employer] Apps Indication:BMI 40.0-44.9, adult Start:08-Feb-2020 Instruction Type:Patient Education Patient Instructions Indication:BMI 40.0-44.9, adult Start:08-Feb-2020 Instruction Type:Provider Instructions for Treatment How to access health informa tion online Indication:Nonsmoker Start:02-Nov-2019 Instruction Type:Patient Education How to access health informa tion online - Detail Indication:Nonsmoker Start:02-Nov-2019 Instruction Type:Patient Education Patient Instructions Indication:Nonsmoker Start:02-Nov-2019 Instruction Type:Provider Instructions for Treatment How to access health informa tion online Indication:Nonsmoker Start:03-Aug-2019 Instruction Type:Patient Education How to access health informa tion online - Detail Indication:Nonsmoker Start:03-Aug-2019 Instruction Type:Patient Education Patient Instructions Indication:Nonsmoker Start:03-Aug-2019 Instruction Type:Provider Instructions for Treatment How to access health informa tion online Indication:Nonsmoker Start:22-Jun-2019 Instruction Type:Patient Education How to access health informa tion online - Detail Indication:Nonsmoker Start:22-Jun-2019 Instruction Type:Patient Education Patient Instructions Indication:Nonsmoker Start:22-Jun-2019 Instruction Type:Provider Instructions for Treatment How to access health informa tion online Indication:Nonsmoker Start:01-Jun-2019 Instruction Type:Patient Education How to access health informa tion online - Detail Indication:Nonsmoker Start:01-Jun-2019 Instruction Type:Patient Education Patient Instructions Indication:Nonsmoker Start:01-Jun-2019 Instruction Type:Provider Instructions for Treatment How to access health informa tion online Indication:HTN (hypertension), benign Start:04-May-2019 Instruction Type:Patient Education How to access health informa tion online - Detail Indication:HTN (hypertension), benign Start:04-May-2019 Instruction Type:Patient Education Patient Instructions Indication:HTN (hypertension), benign Start:04-May-2019 Instruction Type:Provider Instructions for Treatment obesity counseling Indication:Abnormal glucose tolerance test (Renamed from Abnormal glucose tolerance test (GTT)) Start:04-Apr-2019 Instruction Type:Provider Instructions for Treatment How to access health informa tion online Indication:Nonsmoker Start:04-Apr-2019 Instruction Type:Patient Education How to access health informa tion online - Detail Indication:Nonsmoker Start:04-Apr-2019 Instruction Type:Patient Education Patient Instructions Indication:Nonsmoker Start:04-Apr-2019 Instruction Type:Provider Instructions for Treatment How to access health informa tion online Indication:Cellulitis of groin Start:15-Sep-2016 Instruction Type:Patient Education How to access health informa tion online - Detail Indication:Cellulitis of groin Start:15-Sep-2016 Instruction Type:Patient Education Patient Instructions Indication:Cellulitis of groin Start:15-Sep-2016 Instruction Type:Provider Instructions for Treatment How to access health informa tion online Indication:Cellulitis of groin Start:09-Sep-2016 Instruction Type:Patient Education How to access health informa tion online - Detail Indication:Cellulitis of groin Start:09-Sep-2016 Instruction Type:Patient Education Patient Instructions Indication:Cellulitis of groin Start:09-Sep-2016 Instruction Type:Provider Instructions for Treatment Name Dates Details How to Access Health Informa tion Online using Patient Portal and [employer] Apps Indication:BMI 40.0-44.9, adult Start:08-Feb-2020 Instruction Type:Patient Education Patient Instructions Indication:BMI 40.0-44.9, adult Start:08-Feb-2020 Instruction Type:Provider Instructions for Treatment How to access health informa tion online Indication:Nonsmoker Start:02-Nov-2019 Instruction Type:Patient Education How to access health informa tion online - Detail Indication:Nonsmoker Start:02-Nov-2019 Instruction Type:Patient Education Patient Instructions Indication:Nonsmoker Start:02-Nov-2019 Instruction Type:Provider Instructions for Treatment How to access health informa tion online Indication:Nonsmoker Start:03-Aug-2019 Instruction Type:Patient Education How to access health informa tion online - Detail Indication:Nonsmoker Start:03-Aug-2019 Instruction Type:Patient Education Patient Instructions Indication:Nonsmoker Start:03-Aug-2019 Instruction Type:Provider Instructions for Treatment How to access health informa tion online Indication:Nonsmoker Start:22-Jun-2019 Instruction Type:Patient Education How to access health informa tion online - Detail Indication:Nonsmoker Start:22-Jun-2019 Instruction Type:Patient Education Patient Instructions Indication:Nonsmoker Start:22-Jun-2019 Instruction Type:Provider Instructions for Treatment How to access health informa tion online Indication:Nonsmoker Start:01-Jun-2019 Instruction Type:Patient Education How to access health informa tion online - Detail Indication:Nonsmoker Start:01-Jun-2019 Instruction Type:Patient Education Patient Instructions Indication:Nonsmoker Start:01-Jun-2019 Instruction Type:Provider Instructions for Treatment How to access health informa tion online Indication:HTN (hypertension), benign Start:04-May-2019 Instruction Type:Patient Education How to access health informa tion online - Detail Indication:HTN (hypertension), benign Start:04-May-2019 Instruction Type:Patient Education Patient Instructions Indication:HTN (hypertension), benign Start:04-May-2019 Instruction Type:Provider Instructions for Treatment obesity counseling Indication:Abnormal glucose tolerance test (Renamed from Abnormal glucose tolerance test (GTT)) Start:04-Apr-2019 Instruction Type:Provider Instructions for Treatment How to access health informa tion online Indication:Nonsmoker Start:04-Apr-2019 Instruction Type:Patient Education How to access health informa tion online - Detail Indication:Nonsmoker Start:04-Apr-2019 Instruction Type:Patient Education Patient Instructions Indication:Nonsmoker Start:04-Apr-2019 Instruction Type:Provider Instructions for Treatment How to access health informa tion online Indication:Cellulitis of groin Start:15-Sep-2016 Instruction Type:Patient Education How to access health informa tion online - Detail Indication:Cellulitis of groin Start:15-Sep-2016 Instruction Type:Patient Education Patient Instructions Indication:Cellulitis of groin Start:15-Sep-2016 Instruction Type:Provider Instructions for Treatment How to access health informa tion online Indication:Cellulitis of groin Start:09-Sep-2016 Instruction Type:Patient Education How to access health informa tion online - Detail Indication:Cellulitis of groin Start:09-Sep-2016 Instruction Type:Patient Education Patient Instructions Indication:Cellulitis of groin Start:09-Sep-2016 Instruction Type:Provider Instructions for Treatment Name Dates Details How to Access Health Informa tion Online using Patient Portal and [employer] Apps Indication:BMI 40.0-44.9, adult Start:08-Feb-2020 Instruction Type:Patient Education Patient Instructions Indication:BMI 40.0-44.9, adult Start:08-Feb-2020 Instruction Type:Provider Instructions for Treatment How to access health informa tion online Indication:Nonsmoker Start:02-Nov-2019 Instruction Type:Patient Education How to access health informa tion online - Detail Indication:Nonsmoker Start:02-Nov-2019 Instruction Type:Patient Education Patient Instructions Indication:Nonsmoker Start:02-Nov-2019 Instruction Type:Provider Instructions for Treatment How to access health informa tion online Indication:Nonsmoker Start:03-Aug-2019 Instruction Type:Patient Education How to access health informa tion online - Detail Indication:Nonsmoker Start:03-Aug-2019 Instruction Type:Patient Education Patient Instructions Indication:Nonsmoker Start:03-Aug-2019 Instruction Type:Provider Instructions for Treatment How to access health informa tion online Indication:Nonsmoker Start:22-Jun-2019 Instruction Type:Patient Education How to access health informa tion online - Detail Indication:Nonsmoker Start:22-Jun-2019 Instruction Type:Patient Education Patient Instructions Indication:Nonsmoker Start:22-Jun-2019 Instruction Type:Provider Instructions for Treatment How to access health informa tion online Indication:Nonsmoker Start:01-Jun-2019 Instruction Type:Patient Education How to access health informa tion online - Detail Indication:Nonsmoker Start:01-Jun-2019 Instruction Type:Patient Education Patient Instructions Indication:Nonsmoker Start:01-Jun-2019 Instruction Type:Provider Instructions for Treatment How to access health informa tion online Indication:HTN (hypertension), benign Start:04-May-2019 Instruction Type:Patient Education How to access health informa tion online - Detail Indication:HTN (hypertension), benign Start:04-May-2019 Instruction Type:Patient Education Patient Instructions Indication:HTN (hypertension), benign Start:04-May-2019 Instruction Type:Provider Instructions for Treatment obesity counseling Indication:Abnormal glucose tolerance test (Renamed from Abnormal glucose tolerance test (GTT)) Start:04-Apr-2019 Instruction Type:Provider Instructions for Treatment How to access health informa tion online Indication:Nonsmoker Start:04-Apr-2019 Instruction Type:Patient Education How to access health informa tion online - Detail Indication:Nonsmoker Start:04-Apr-2019 Instruction Type:Patient Education Patient Instructions Indication:Nonsmoker Start:04-Apr-2019 Instruction Type:Provider Instructions for Treatment How to access health informa tion online Indication:Cellulitis of groin Start:15-Sep-2016 Instruction Type:Patient Education How to access health informa tion online - Detail Indication:Cellulitis of groin Start:15-Sep-2016 Instruction Type:Patient Education Patient Instructions Indication:Cellulitis of groin Start:15-Sep-2016 Instruction Type:Provider Instructions for Treatment How to access health informa tion online Indication:Cellulitis of groin Start:09-Sep-2016 Instruction Type:Patient Education How to access health informa tion online - Detail Indication:Cellulitis of groin Start:09-Sep-2016 Instruction Type:Patient Education Patient Instructions Indication:Cellulitis of groin Start:09-Sep-2016 Instruction Type:Provider Instructions for Treatment Name Dates Details How to Access Health Informa tion Online using Patient Portal and [employer] Apps Indication:Nonsmoker Start:11-May-2020 Instruction Type:Patient Education Patient Instructions Indication:Nonsmoker Start:11-May-2020 Instruction Type:Provider Instructions for Treatment How to Access Health Informa tion Online using Patient Portal and [employer] Apps Indication:BMI 40.0-44.9, adult Start:08-Feb-2020 Instruction Type:Patient Education Patient Instructions Indication:BMI 40.0-44.9, adult Start:08-Feb-2020 Instruction Type:Provider Instructions for Treatment How to access health informa tion online Indication:Nonsmoker Start:02-Nov-2019 Instruction Type:Patient Education How to access health informa tion online - Detail Indication:Nonsmoker Start:02-Nov-2019 Instruction Type:Patient Education Patient Instructions Indication:Nonsmoker Start:02-Nov-2019 Instruction Type:Provider Instructions for Treatment How to access health informa tion online Indication:Nonsmoker Start:03-Aug-2019 Instruction Type:Patient Education How to access health informa tion online - Detail Indication:Nonsmoker Start:03-Aug-2019 Instruction Type:Patient Education Patient Instructions Indication:Nonsmoker Start:03-Aug-2019 Instruction Type:Provider Instructions for Treatment How to access health informa tion online Indication:Nonsmoker Start:22-Jun-2019 Instruction Type:Patient Education How to access health informa tion online - Detail Indication:Nonsmoker Start:22-Jun-2019 Instruction Type:Patient Education Patient Instructions Indication:Nonsmoker Start:22-Jun-2019 Instruction Type:Provider Instructions for Treatment How to access health informa tion online Indication:Nonsmoker Start:01-Jun-2019 Instruction Type:Patient Education How to access health informa tion online - Detail Indication:Nonsmoker Start:01-Jun-2019 Instruction Type:Patient Education Patient Instructions Indication:Nonsmoker Start:01-Jun-2019 Instruction Type:Provider Instructions for Treatment How to access health informa tion online Indication:HTN (hypertension), benign Start:04-May-2019 Instruction Type:Patient Education How to access health informa tion online - Detail Indication:HTN (hypertension), benign Start:04-May-2019 Instruction Type:Patient Education Patient Instructions Indication:HTN (hypertension), benign Start:04-May-2019 Instruction Type:Provider Instructions for Treatment obesity counseling Indication:Abnormal glucose tolerance test (Renamed from Abnormal glucose tolerance test (GTT)) Start:04-Apr-2019 Instruction Type:Provider Instructions for Treatment How to access health informa tion online Indication:Nonsmoker Start:04-Apr-2019 Instruction Type:Patient Education How to access health informa tion online - Detail Indication:Nonsmoker Start:04-Apr-2019 Instruction Type:Patient Education Patient Instructions Indication:Nonsmoker Start:04-Apr-2019 Instruction Type:Provider Instructions for Treatment How to access health informa tion online Indication:Cellulitis of groin Start:15-Sep-2016 Instruction Type:Patient Education How to access health informa tion online - Detail Indication:Cellulitis of groin Start:15-Sep-2016 Instruction Type:Patient Education Patient Instructions Indication:Cellulitis of groin Start:15-Sep-2016 Instruction Type:Provider Instructions for Treatment How to access health informa tion online Indication:Cellulitis of groin Start:09-Sep-2016 Instruction Type:Patient Education How to access health informa tion online - Detail Indication:Cellulitis of groin Start:09-Sep-2016 Instruction Type:Patient Education Patient Instructions Indication:Cellulitis of groin Start:09-Sep-2016 Instruction Type:Provider Instructions for Treatment Name Dates Details How to Access Health Informa tion Online using Patient Portal and [employer] Apps Indication:Nonsmoker Start:11-May-2020 Instruction Type:Patient Education Patient Instructions Indication:Nonsmoker Start:11-May-2020 Instruction Type:Provider Instructions for Treatment How to Access Health Informa tion Online using Patient Portal and [employer] Apps Indication:BMI 40.0-44.9, adult Start:08-Feb-2020 Instruction Type:Patient Education Patient Instructions Indication:BMI 40.0-44.9, adult Start:08-Feb-2020 Instruction Type:Provider Instructions for Treatment How to access health informa tion online Indication:Nonsmoker Start:02-Nov-2019 Instruction Type:Patient Education How to access health informa tion online - Detail Indication:Nonsmoker Start:02-Nov-2019 Instruction Type:Patient Education Patient Instructions Indication:Nonsmoker Start:02-Nov-2019 Instruction Type:Provider Instructions for Treatment How to access health informa tion online Indication:Nonsmoker Start:03-Aug-2019 Instruction Type:Patient Education How to access health informa tion online - Detail Indication:Nonsmoker Start:03-Aug-2019 Instruction Type:Patient Education Patient Instructions Indication:Nonsmoker Start:03-Aug-2019 Instruction Type:Provider Instructions for Treatment How to access health informa tion online Indication:Nonsmoker Start:22-Jun-2019 Instruction Type:Patient Education How to access health informa tion online - Detail Indication:Nonsmoker Start:22-Jun-2019 Instruction Type:Patient Education Patient Instructions Indication:Nonsmoker Start:22-Jun-2019 Instruction Type:Provider Instructions for Treatment How to access health informa tion online Indication:Nonsmoker Start:01-Jun-2019 Instruction Type:Patient Education How to access health informa tion online - Detail Indication:Nonsmoker Start:01-Jun-2019 Instruction Type:Patient Education Patient Instructions Indication:Nonsmoker Start:01-Jun-2019 Instruction Type:Provider Instructions for Treatment How to access health informa tion online Indication:HTN (hypertension), benign Start:04-May-2019 Instruction Type:Patient Education How to access health informa tion online - Detail Indication:HTN (hypertension), benign Start:04-May-2019 Instruction Type:Patient Education Patient Instructions Indication:HTN (hypertension), benign Start:04-May-2019 Instruction Type:Provider Instructions for Treatment obesity counseling Indication:Abnormal glucose tolerance test (Renamed from Abnormal glucose tolerance test (GTT)) Start:04-Apr-2019 Instruction Type:Provider Instructions for Treatment How to access health informa tion online Indication:Nonsmoker Start:04-Apr-2019 Instruction Type:Patient Education How to access health informa tion online - Detail Indication:Nonsmoker Start:04-Apr-2019 Instruction Type:Patient Education Patient Instructions Indication:Nonsmoker Start:04-Apr-2019 Instruction Type:Provider Instructions for Treatment How to access health informa tion online Indication:Cellulitis of groin Start:15-Sep-2016 Instruction Type:Patient Education How to access health informa tion online - Detail Indication:Cellulitis of groin Start:15-Sep-2016 Instruction Type:Patient Education Patient Instructions Indication:Cellulitis of groin Start:15-Sep-2016 Instruction Type:Provider Instructions for Treatment How to access health informa tion online Indication:Cellulitis of groin Start:09-Sep-2016 Instruction Type:Patient Education How to access health informa tion online - Detail Indication:Cellulitis of groin Start:09-Sep-2016 Instruction Type:Patient Education Patient Instructions Indication:Cellulitis of groin Start:09-Sep-2016 Instruction Type:Provider Instructions for Treatment Advance Directives No Advanced Directives Records Found Name Dates Details Living Will - Effective on . Expiration date unspecified. Scanned Document is available upon request. Effective:05-May-2019 Name Dates Details Living Will - Effective on . Expiration date unspecified. Scanned Document is available upon request. Effective:05-May-2019 Name Dates Details Living Will - Effective on . Expiration date unspecified. Scanned Document is available upon request. Effective:5-Apr-2020 Name Dates Details Living Will - Effective on . Expiration date unspecified. Scanned Document is available upon request. Effective:5-Apr-2020 Name Dates Details Living Will - Effective on . Expiration date unspecified. Scanned Document is available upon request. Effective:5-Apr-2020 Name Dates Details Living Will - Effective on . Expiration date unspecified. Scanned Document is available upon request. Effective:5-Apr-2020 Name Dates Details Living Will - Effective on . Expiration date unspecified. Scanned Document is available upon request. Effective:-Apr-2020 Name Dates Details Living Will - Effective on . Expiration date unspecified. Scanned Document is available upon request. Effective:-Apr-2019 Name Dates Details Living Will - Effective on . Expiration date unspecified. Scanned Document is available upon request. Effective:-Apr-2019 Name Dates Details Living Will - Effective on . Expiration date unspecified. Scanned Document is available upon request. Effective:5-Apr-2019 Name Dates Details Living Will - Effective on . Expiration date unspecified. Scanned Document is available upon request. Effective:-May-2019 Name Dates Details Living Will - Effective on . Expiration date unspecified. Scanned Document is available upon request. Effective:-Apr-2019 Name Dates Details Living Will - Effective on . Expiration date unspecified. Scanned Document is available upon request. Effective:5-Apr-2019 Name Dates Details Living Will - Effective on . Expiration date unspecified. Scanned Document is available upon request. Effective:5-Apr-2020 Name Dates Details Living Will - Effective on . Expiration date unspecified. Scanned Document is available upon request. Effective:5-Apr-2020 Name Dates Details Living Will - Effective on . Expiration date unspecified. Scanned Document is available upon request. Effective:5-Apr-2020 Name Dates Details Living Will - Effective on . Expiration date unspecified. Scanned Document is available upon request. Effective:5-Apr-2020 Name Dates Details Living Will - Effective on . Expiration date unspecified. Scanned Document is available upon request. Effective:05-May-2019 Name Dates Details Living Will - Effective on . Expiration date unspecified. Scanned Document is available upon request. Effective:05-May-2019 Name Dates Details Living Will - Effective on . Expiration date unspecified. Scanned Document is available upon request. Effective:05-May-2019 Name Dates Details Living Will - Effective on . Expiration date unspecified. Scanned Document is available upon request. Effective:05-May-2019 Name Dates Details Living Will - Effective on . Expiration date unspecified. Scanned Document is available upon request. Effective:05-May-2019 Name Dates Details Living Will - Effective on . Expiration date unspecified. Scanned Document is available upon request. Effective:05-May-2019 Name Dates Details Living Will - Effective on . Expiration date unspecified. Scanned Document is available upon request. Effective:05-May-2019 Name Dates Details Living Will - Effective on . Expiration date unspecified. Scanned Document is available upon request. Effective:05-May-2019 Name Dates Details Living Will - Effective on . Expiration date unspecified. Scanned Document is available upon request. Effective:05-May-2019 Advance Directive Response Recorded Date/ Time Living Will Yes September 24, 2017 2:22pm Power of Scrap Baler Yes September 24 8 2:22pm Name Dates Details Living Will - Effective on . Expiration date unspecified. Scanned Document is available upon request. Effective:05-May-2019 Name Dates Details Living Will - Effective on . Expiration date unspecified. Scanned Document is available upon request. Effective:05-May-2019 Name Dates Details Living Will - Effective on . Expiration date unspecified. Scanned Document is available upon request. Effective:05-May-2019 Summary Purpose Chief Complaint and Reason for Visit Chief Complaint XRAY XRAY RUQ PAIN Chief Complaint XRAY RUQ PAIN RUQ PAIN Chief Complaint Admit Date AUB February 29, 2024 3:58pm RIGHT SHOULDER PAIN AND RIGHT KNEE PAIN. RX HERE April 08, 2024 12:30pm XRAY April 12, 2024 8:48am ENLARGED FIBROID UTERUS (CIM) April 032024 10:19am Reason for Visit Admit Date Postmenopausal bleeding April 25 10:19am Chief Complaint Admit Date AUB February 29, 2024 3:58pm RIGHT SHOULDER PAIN AND RIGHT KNEE PAIN. RX HERE April 08, 2024 12:30pm XRAY April 12, 2024 8:48am ENLARGED FIBROID UTERUS (CIM) April 032024 10:19am Symptoms involving circ and resp systems May 30, 2024 1:37pm Additional Source Comments INFORMATION SOURCE (unrecogn ized section and content) DATE CREATED AUTHOR 06/19/2022 [facility] DATE CREATED AUTHOR AUTHOR'S ORGANIZ ATION 08/11/2024 [facility] Care Teams (unrecognized sec tion and content) Team Status: Active Member Role Status Dates Dr. Tim Hernandez DO Family Provider Active Dr. Beryl Keane DO Primary Care Provider Active Team Status: Inactive Member Role Status Dates Dr. Beryl Keane DO Primary Care Provider Active Dr. Larry Hays MD Attending Provider Active Team Status: Inactive Member Role Status Dates Dr. Beryl Keane DO Primary Care Pr ovider, Attending Provider, Referring Provider Active Team Status: Active Member Role Status Dates Dr. Beryl Keane DO Primary Care Provider Active Team Status: Inactive Member Role Status Dates Dr. Beryl Keane DO Primary Care Provider Active Start: February 29, 2024 End: February 29, 2024 Dr. Beryl Keane DO Attending Provider Active Start: February 29, 2024 End: February 29, 2024 Dr. Beryl Keane DO Referring Provider Active Start: February 29, 2024 End: February 29, 2024 Team Status: Inactive Member Role Status Dates Dr. Beryl Keane DO Primary Care Provider Active Start: April 08, 2024 End: April 08, 2024 Dr. Beryl Keane DO Attending Provider Active Start: April 08, 2024 End: April 08, 2024 Dr. Beryl Keane DO Referring Provider Active Start: April 08, 2024 End: April 08, 2024 Team Status: Inactive Member Role Status Dates Dr. Beryl Keane DO Primary Care Provider Active Start: April 12, 2024 End: April 12, 2024 Dr. Larry Hays MD Attending Provider Active S tart: April 12, 2024 End: April 12, 2024 Team Status: Inactive Member Role Status Dates Dr. Beryl Keane DO Primary Care Provider Active Start: April 25, 2024 End: April 25, 2024 Dr. Beryl Keane DO Referring Provider Active Start: April 25, 2024 End: April 25, 2024 Dr. Snehal Lozano DO Attending Provider Activ e Start: April 25, 2024 End: April 25, 2024 Team Status: Inactive Member Role Status Dates Dr. Beryl Keane DO Primary Care Provider Active Start: April 25, 2024 End: April 25, 2024 Dr. Snehal Lozano DO Attending Provider Activ e Start: April 25, 2024 End: April 25, 2024 Dr. Snehal Lozano DO Referring Provider Activ e Start: April 25, 2024 End: April 25, 2024 Team Status: Inactive Member Role Status Dates Dr. Beryl Keane DO Primary Care Provider Active Start: May 30, 2024 End: May 30, 2024 Dr. Beryl Keane DO Attending Provider Active Start: May 30, 2024 End: May 30, 2024 Dr. Beryl Keane DO Referring Provider Active Start: May 30, 2024 End: May 30, 2024 Team Status: Active Member Role Status Dates Dr. Beryl Keane DO Primary Care Provider Active Start: May 30, 2024 Dr. Larry Hays MD Attending Provider Active S tart: May 30, 2024 Goals (unrecognized section and content) Goals may be documented in a n alternate sectionGoals may be documented in an alternate sectionGoals may be documented in an alternate sectionGoals may be documented in an alternate section FOR RECORDS PERTAINING TO PATIENTS WHO ARE OR HAVE BEEN ENROLLED IN A CHEMICAL DEPENDENCY/SUBSTANCEABUSE PROGRAM, SOME INFORMATION MAY BE OMITTED. This clinical summary was aggregated from multiple sources. Caution should be exercised in using it in the provision of clinical care. This summary normalizes information from multiple sources, and as a consequence, information in this document may materially change the coding, format and clinical context of patient data. In addition, data may be omitted in some cases. CLINICAL DECISIONS SHOULD BE BASED ON THE PRIMARY CLINICAL RECORDS. [facility] [facility]. provides no warranty or guarantee of the accuracy or completeness of information in this document.
--- NOTE | 2024-08-13 08:45 | MRI_ITS ---
PROCEDURE: MRI SPINE LUMBAR (ROUTINE) 08/13/2024 REASON FOR EXAM: LOWER EXTREMITY PAIN DIFFUSE UNSPECIFIED TECHNIQUE: Multiplanar and multisequence images were obtained without IV contrast administration. COMPARISON: None. FINDINGS: Lumbar vertebral bodies maintain a normal height. There is mild dextroscoliosis of the lumbar spine. There is grade 1 anterolisthesis of L4-L5. There is diminished signal intensity involving the discs of the lumbar spine related to degenerative disc disease. There are Modic type 1 endplate degenerative changes at L4-L5. There is a nonspecific hypointense T2-weighted and T1-weighted focus involving the L5 vertebral body measuring approximately 14 mm. No acute fracture or subluxation is present. The tip of the conus medullaris terminates at L1-L2. 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 Partial visualization of the thoracic spine demonstrates diffuse hypointense T1- weighted signal involving the T5 vertebral body. Partial visualization of the abdomen demonstrates a prominent right renal cyst measuring proximally 9.4 cm. Individual levels: T12-L1: No disc herniation, central canal stenosis, or neural foraminal narrowing. Facet arthropathy is present. L1-L2: No disc herniation, central canal stenosis, or neural foraminal narrowing. Facet/flavum hypertrophy is identified. L2-L3: Mild disc bulge with facet/flavum hypertrophy. No significant central canal stenosis or neural foraminal narrowing. L3-L4: Mild disc bulge with facet/flavum hypertrophy. No significant central canal stenosis or neural foraminal narrowing. L4-L5: Grade 1 anterolisthesis with disc bulge and facet/flavum hypertrophy results in moderate to severe central canal stenosis. There is mild narrowing of the bilateral lateral recesses. There is mild bilateral neural foraminal narrowing. L5-S1: No disc herniation, central canal stenosis, or right neural foraminal narrowing. Endplate spurring on the left laterally results in moderate left neural foraminal narrowing. MRI/Spine Lumbar (Routine) IMPRESSION: 1. Grade 1 anterolisthesis at L4-L5 with disc bulge and facet/flavum hypertroph y results in moderate to severe central canal stenosis and mild bilateral neural foraminal narrowing. 2. At L5-S1, left lateral endplate spurring results in moderate left neural for aminal narrowing. 3. Partial visualization of the thoracic spinal cord demonstrates hyperintense T2-weighted signal within the central aspect of the distal aspect of the thoracic spinal cord which may relate to syringohydrom yelia. Recommend dedicated MRI of the thoracic spine with and without IV contrast. 4. Partial visualization of the thoracic spine demonstrates diffuse hypointense signal involving the T5 vertebral body. Malignancy is not excluded. Additionally, there is hypointense signal focus in volving the L5 vertebral body. Consider further evaluation with nuclear medicine bone scan and/or MRI with and without IV contr ast. Reading Location: [facility]
== END | disposition home or self-care (01) ==
PROVIDERS: PCP Internal Medicine; Referring Provider Internal Medicine; Visit Provider Internal Medicine
DX: M79.606 Pain in leg, unspecified (principal)
CPT/HCPCS: 72148

== ENCOUNTER 2024-08-29 13:30 | Outpatient (RCR) | payer MEDICARE, SELFPAY ==
--- NOTE | 2024-07-29 12:58 | HP.PTEVAL ---
Patient's Visit Information Visit Information Visit Information: CAMILLE BERNABE is a 74 year old F referred to Physical Therapy by Dr. Beryl Keane DO with a diagnosis of IT band tendonitis/leg pain. R/o spinal stenosis. Date of Evaluation: 07/29/24 Physical Therapist: ALVERTO Pierre Visit Plan Frequency: 2x /Week Duration: 2 Months Plan: 2X/ week for 8 weeks for neutral spine or flexion based core stability, stretching of LB into flexion, stretching of LE's (B IT band, piriformis), gait training (increase hip ext and bigger steps...might have to use a rollator for exercise), strengthen B hips especially hip ext HEP; walk at home for endurance with rollator and seated trunk flexion pushing out the rollator Subjective Subjective: Pt reports that she has always trouble walking. 3 years ago she could walk around the loop and now she is huffing and puffing and can not stand very long. She has to do her chores as her own pace. She has always had low blood pressure and eats healthy with protein and vegetable and does not eat sweets. Her R leg in the past has swollen huge compared to the L. She went to many ortho surgeons and no one could give her a reason. Last fall her Dr had her do therapy in the water and her R shoulder was hurting and she got better. The BP and the weight keeps inching up. Dr sent her here this time because the Dr said her leg muscles need strengthened. She is getting an MRI on her back (end of July). She can only walk so far because she is out of breath and she has pain side of both legs and in front of knee and calf. Her is a chiropractor and can not figure her out. Steps are not good and has to go up the L leg first. She can walk in the grocery store if she can lean on the cart. She has no numbness in her legs but sometimes he has tingling but not major. She feels that her legs are weak. Pain Back pain: Pain Intensity (Out of 10): 0 hip pain: Pain Intensity (Out of 10): 0 B leg pain: Pain Intensity (Out of 10): 5 Objective Objective: Gait: walks with small short strides, flexed trunk and step foot does not clear stance leg. Gave the pt the rollator and she was able to take increase strides with less pain in L leg, still some in the R leg Sit to stand: able to get up without using her arms on first attempt Pt is able to heel and toe raise with UE support but increased R knee pain LE MMT: R hip flex 9.4 and L 8.6 R knee ext 20.5 and L 13.3 R knee flex 13.7 and L 14.9 Supine L hip and 11.1 and L 10.6 S/L hip abd R 12.6 and L 11.5 Bridge.. not even 1/4 normal ROM and increase pain in her back Pt struggles with SLR due to pain.... Pt had increase tightness and pain with stretching B IT band in supine Pt struggled with seated trunk flexion so we had her push out a rollator to open up back. Balance/Special Test Scores Lower Extremity Functional Score: 32 Goals Goal 1:: I HEP Goal Time Frame: 6-8 Weeks Goal 2:: Be able to walk back to the treatment rooms without having to stop from the waiting room Goal Time Frame: 6-8 Weeks Goal 3:: Decrease R leg pain by 50% with walking Goal Time Frame: 6-8 Weeks Rehabilitation Potential Rehabilitation Potential: Good Anticipated Interventions Patient/Client Instruction: Educate patient on: Condition and Plan of Care For the Purpose of:: To decrease pain, To increase ROM, To improve nutrient delivery to tissue, To improve muscle performance and motor function, To improve ability to perform ADL's, To increase tolerance to activity/condition/position, To improve performance and independence with ADL's, To decrease level of supervision to perform tasks, To improve ability of physical actions for home/community/work/leisure, To improve gait and locomotor functions, To improve health of tissue, To decrease soft tissue restriction, To increase flexibility/ROM, To improve endurance, To improve balance and To improve safety with gait Therapeutic Exercise to Include: Strength training, Endurance training, Flexibilty training, Gait and locomotor training, Passive ROM and Dynamic Lumbar Stabilization For the Purpose of:: To decrease pain, To increase ROM, To improve nutrient delivery to tissue, To improve ability to perform ADL's, To increase tolerance to activity/condition/position, To improve performance and independence with ADL's, To decrease level of supervision to perform tasks, To improve ability of physical actions for home/community/work/leisure, To improve gait and locomotor functions, To improve health of tissue, To decrease soft tissue restriction, To increase flexibility/ROM and To improve endurance Functional Training to Include: Gait training For the Purpose of:: To improve gait and locomotor functions Manual Therapy Techniques to Include: Passive ROM For the Purpose of:: To increase ROM, To improve nutrient delivery to tissue, To improve health of tissue, To decrease soft tissue restriction and To increase flexibility/ROM Text: Thank you for the opportunity to evaluate your patient. For Medicare and Medicare HMO plans, please review the plan of care and approve it. It will need to be FAXED BACK to us at [phone] for Medicare purposes. For Medicare only, by signing this I certify the plan of care. Please let me know if there are questions or concerns regarding this plan of care. Physician Signature: Date:
--- NOTE | 2024-08-29 13:55 | HP.PTDCSUM ---
Discharge Summary D/C summary: It has been my pleasure to treat CAMILLE BERNABE referred by Dr. Beryl Keane DO, with the diagnosis of IT band tendonitis/leg pain. R/o spinal stenosis for a total of 9 visit(s). Discharge Date: 08/29/24 Please see the following information for a summary of their discharge status. Subjective Subjective: Pt feels that the rollator inside her house makes her more functional. They did an MRI on the Lumbar and going to do one on the thoracic. She is not walking much better unless she uses the rollator. She has gotten some good exercises to learn how to do some exercises at home. She was just not doing well with the weather and she hurt so bad. She follow up with her Dr this and next MRI on the . Pain Back pain: Pain Intensity (Out of 10): 0 hip pain: Pain Intensity (Out of 10): 2 B leg pain: Pain Intensity (Out of 10): 2 Overall Improvement % Improvement: 35 Objective Objective/Function: Gait: Walked all the way back to the treatment room with some SOB but did not have to stop to rest on the way back to the treatment room. Goals Goal 1:: I HEP Goal Progress: Goal Met Goal 2:: Be able to walk back to the treatment rooms without having to stop from the waiting room Goal Progress: Goal Met Goal 3:: Decrease R leg pain by 50% with walking Goal Progress: Not Progressing Plan Plan: DC PT back to the Dr for further evaluation D/C Information Discharge Comments: DC PT d/c sentence: If there are questions or concerns regarding this patient's physical therapy, please feel free to call me at [phone]. Thank you for the referral of this patient. Sincerely, Gisselle Domingo, MPT Balance/Gait/Functional tests Balance/Special Test Scores Lower Extremity Functional Score: 19 Improvement % Improvement: 35
== END 2024-08-29 19:00 | disposition home or self-care (01) ==
LOC: PT 13:30
PROVIDERS: PCP Internal Medicine; Referring Provider Internal Medicine; Visit Provider Internal Medicine
DX: M79.606 Pain in leg, unspecified (principal); M76.829 Posterior tibial tendinitis, unspecified leg
CPT/HCPCS: 97110; 97162; 97530

== ENCOUNTER → 2024-09-07 | Outpatient (CLI) | payer MEDICARE, SELFPAY ==
--- NOTE | 2024-09-07 07:58 | MRI_ITS ---
PROCEDURE: SPINE LUMBAR W/WO CONTRAST 09/07/2024 REASON FOR EXAM: OTHER INTERVERTEBRAL DISC DEGENERATION TECHNIQUE: SPINE LUMBAR W/WO CONTRAST Multiplanar and multisequence images were obtained without and with intravenous gadolinium-based contrast administration. CONTRAST: Elsa scan VOLUME: 22 mL COMPARISON: 08/13/2024 FINDINGS: Again seen is grade 1 subluxation of L4 upon L5. On T1 weighted images, faint hypointensity in the L5 vertebral body is once again demonstrated. There is no acute compression deformity. Increased signal within the distal aspect of the spinal cord and conus may represent prominence of the central canal. L1-L2 is negative for central or foraminal stenosis. At L2-3 concentric annular disc bulge results in stable, mild canal narrowing. At L3-4, negative for significant spinal stenosis. At L4-5, the degree of canal narrowing is moderate, not severe. There is inferior foraminal narrowing on the right in the left without nerve root compression. L5-S1 demonstrates a far left lateral osteophytic spur abutting the far left L5 nerve root. Postcontrast images demonstrate degenerative enhancement of the L4-L5 endplates adjacent to the narrowed disc space. No abnormal cauda equina enhancement. Faint enhancement of the L5 vertebra lesion. MRI/Spine Lumbar W/WO Contrast IMPRESSION: Degenerative changes which are similar to the prior study. The L5 vertebral ashish dy lesion is indeterminate, as discussed on the prior study, and recommendation with bone scan may be helpful. Reading [facility]
--- NOTE | 2024-09-07 07:59 | MRI_ITS ---
PROCEDURE: SPINE THORACIC W/WO CONTRAST 09/07/2024 REASON FOR EXAM: ABNORMAL LUMBAR SPINE MRI TECHNIQUE: Thoracic spine MRI without and with intravenous gadolinium-based contrast. Multiplanar and multisequence images were obtained. CONTRAST: Clariscan VOLUME: 22mL COMPARISON: None. FINDINGS: Vertebrae: There are no compression fractures. There is decreased signal in the bone marrow of T5 on the T2 and pre and postcontrast T1 images, and mildly increased signal on the STIR images, consistent with less fatty marrow than on the remaining vertebral bodies. There is no abnormal contrast enhancement. There are findings of DISH in the mid and lower thoracic spine. Alignment: Normal. There is no spondylolisthesis. Spinal Cord: There is a syrinx within the spinal cord from the mid T11 level to the mid T12 level, a proximally 3.4 cm in length and 2 mm in diameter. The conus medullaris terminates normally at the T12-L1 level. Disc spaces: There is mild degenerative disc disease of the T8-9 and T9-10 levels. There are no abnormal disc protrusions. Paraspinal Tissues: The paravertebral soft tissues appear unremarkable. Postcontrast images: There is no abnormal contrast enhancement. MRI/Spine Thoracic W/WO Contrast IMPRESSION: 1. There is a syrinx in the distal spinal cord as described. 2. The T5 vertebral body demonstrates uniformly less fat than the remaining ve rtebral bodies. This is not felt to be of clinically significance. 3. There is no central canal stenosis, lateral recess stenosis or foraminal na rrowing. 4. Other findings as noted. Reading Location: [place] [id number]
--- OUTSIDE RECORDS SUMMARY | 2024-09-08 03:44 | XMS RPT_ITS | CCD ---
Author Organization [facility] Care Team Providers Care Gasket Notcher Name Role Phone Beryl Keane Unavailable Nestor Do Unavailable Slarb, Gisselle Unavailable Unavailable Gravius, Obdulia Unavailable Unavailable Unavailable Unavailable Jannie Saenz Unavailable Unavailable Unavailable Unavailable Stephanie Mata Unavailable Unavailable [facility] Unavailable Sera Harrison Unavailable Beryl Keane DO Unavailable Nestor Do MD Unavailable [facility] Unavailable Sera Harrison Leo Unavailable Jannie Saenz LPN Unavailable Unavailable Unavailable Unavailable Harsha RAMIREZN, Jair Unavailable Unavailable Adolfo RAMIREZN, Stephanie Unavailable Unavailable Joan Junior Unavailable Darion DOMINGO, Anaya Unavailable Unavailable Beryl Keane DO Unavailable Gravius PUMP HOUSE OPERATOR, Obdulia Unavailable Unavailable [place] PUMP HOUSE OPERATOR, Kayela Unavailable Unavailable [place] PUMP HOUSE OPERATOR, Jocelyn Unavailable Unavailable Beryl Keane DO Attending Unavailable Beryl Keane DO Referring Unavailable Beryl Keane DO Consulting Unavailable Alyssa FORGE PRESS OPERATOR, Ashwin Unavailable Unavailable Dr. Beryl Keane Primary Care Provider [phone] Dr. Larry Hays Attending Provider [phone] Slarb FORGE PRESS OPERATOR, Gisselle Unavailable Unavailable Johann GUILLERMO, Araceli Unavailable Dr. Beryl Keane Primary Care Provider [phone] Dr. Larry Hays Attending Provider [phone] Lakhwinder DO, Dr. Cordoba Primary Care Provider Lakhwinder DO, Dr. Cordoba Attending Provider [phone] Lakhwinder DO, Dr. Cordoba Referring Provider 1(330 ) Lis COFFEY, Dr. Juarez Attending Provider 1(330) Vandbruce Santos DO, Dr. Brian Attending Provider Chelo Santos DO, Dr. Brian Referring Provider Lakhwinder DO, Dr. Cordoba Primary Care Provider Lakhwinder DO, Dr. Cordoba Attending Provider 1(330 ) Lakhwinder DO, Dr. Cordoba Referring Provider 1(330 ) Lis COFFEY, Dr. Juarez Attending Provider 1(330) Vandbruce Santos DO, Dr. Brian Attending Provider Chelo Santos DO, Dr. Brian Referring Provider Lakhwinder DO, Dr. Cordoba Primary Care Provider [phone] Lakhwinder DO, Dr. Cordoba Referring Provider 1(330 ) Lakhwinder DO, Dr. Cordoba Attending Provider 1(330 ) Lis COFFEY, Dr. Juarez Attending Provider 1(330) Wojciech COFFEY, Dr. Maza Attending Provider Chelo Santos DO, Dr. Brian Other Provider [phone] Lakhwinder DO, Dr. Cordoba Primary Care Provider [phone] Lakhwinder DO, Dr. Cordoba Referring Provider 1(330 ) Vandbruce Santos DO, Dr. Brian Attending Provider Chelo Santos DO, Dr. Brian Referring Provider Lis COFFEY, Dr. Juarez Referring Provider 1(330) Beryl Keane Primary Care Unavailable Snehal Lozano Attending Unavailabl e Beryl Keane Referring Unavailable Lakhwinder, Beryl Primary Care Unavailable Vande Velde, Snehal Attending Unavailabl e Lakhwinder, Beryl Referring Unavailable Lakhwinder, Beryl Primary Care Unavailable Lakhwinder, Beryl Attending Unavailable Lakhwinder, Beryl Referring Unavailable Lakhwinder, Beryl Primary Care Unavailable Lakhwinder, Beryl Referring Unavailable Vande Velde, Snehal Attending Unavailabl e Lakhwinder, Beryl Primary Care Unavailable Lis, Helmetta Attending Unavailable Lakhwinder, Beryl Primary Care Unavailable Lis, Helmetta Attending Unavailable Lakhwinder, Beryl Primary Care Unavailable Link Jeffery Attending Unavailable Vande Velde, Snehal Referring Unavailabl e Lakhwinder, Beryl Primary Care Unavailable Lis, Larry Attending Unavailable Lakhwinder, Beryl Primary Care Unavailable Lis, Helmetta Referring Unavailable Lis, Helmetta Attending Unavailable Lakhwinder, Beryl Primary Care Unavailable Lakhwinder, Beryl Referring Unavailable Lakhwinder, Beryl Attending Unavailable Lakhwinder, Beryl Attending Unavailable Lakhwinder, Beryl Primary Care Unavailable Lakhwinder, Beryl Referring Unavailable Lakhwinder, Beryl Primary Care Unavailable Vande Velde, Snehal Referring Unavailabl e Vande Velde, Snehal Attending Unavailabl e Lakhwinder, Beryl Primary Care Unavailable Araceli Wills Referring Unavailable Araceli Wills Attending Unavailable Vande Velde, Snehal Referring Unavailabl e Vande Velde, Snehal Attending Unavailabl e Lakhwinder, Beryl Primary Care Unavailable Lakhwinder, Beryl Attending Unavailable Lakhwinder, Beryl Primary Care Unavailable Lakhwinder, Beryl Referring Unavailable Lakhwinder, Beryl Primary Care Unavailable Lakhwinder, Beryl Referring Unavailable Lakhwinder, Beryl Attending Unavailable Lakhwinder, Beryl Referring Unavailable Lakhwinder, Beryl Attending Unavailable Lakhwinder, Beryl Primary Care Unavailable Lakhwinder, Beryl Attending Unavailable Lakhwinder, Beryl Primary Care Unavailable Lakhwinder, Beryl Referring Unavailable Lakhwinder, Beryl Primary Care Unavailable Vande Velde, Snehal Attending Unavailabl e Vande Velde, Snehal Consulting Unavailabl e Vande Velde, Snehal Referring Unavailabl e Allergies Allergy Classification Reported Allergen(s) Allergy Type Date of Onset Reaction(s) Facility (18 sources) Milk; Translations: [Milk] Allergy to substance (finding) [facility]; [facility] Work Phone: Comment on above: and dairy products (6 sources) Latex Allergy to substance 0 Rash [facility] (1 source) Latex Drug allergy (disorder) 5 [facility] Repository Medications Current Medications Medication Drug Class(es) Dates Sig (Normalized) Sig (Original) calcium lactate 100 mg calcium tablet (2 sources) Start: 07-14-2019 take 2 tablets by mouth three times daily calcium lactate 100 mg calcium tablet Active 200 MG PO THREE TIMES A DAY July 14, 2019 12:00am catalyn (6 sources) Start: 07-14-2019 catalyn Active 1 {tbl} PO THREE TIMES A DAY 0 July 14, 2019 12:00am Start: 07-14-2019 catalyn Active 1 {tbl} PO THREE TIMES A DAY July 14, 2019 12:00am Start: 07-14-2019 catalyn Active 1 {tbl} PO THREE TIMES A DAY July 13, 2019 11:00pm Start: 07-14-2019 take 1 tablet by cris th three times daily catalyn Active 1 TABLET PO THREE TIMES A DAY July 14, 2019 12:00am Gotu Rui Extract (4 sources) Start: 04-25-2024 take 1 capsule by mo uth once daily Gotu Rui (Centella Asiatica) 475 mg capsule Active 475 mg PO DAILY April 25, 2024 1:00am Start: 04-25-2024 Gotu Rui (Karen tella Asiatica) 475 mg capsule Active mg PO April 25, 2024 1:00am Start: 04-25-2024 Gotu Rui (Karen tella Asiatica) 475 mg capsule Active mg PO April 25, 2024 12:00am Medium Chain Triglycerides (Mct Oil) 14 gram-120 kcal/15 mL oil (4 sources) Start: 04-25-2024 take 1 mL by mouth once daily Medium Chain Triglycerides (Mct Oil) 14 gram-120 kcal/15 mL oil Active 15 mL PO daily April 25, 2024 1:00am Start: 04-25-2024 take 1 mL by mouth once daily Medium Chain Triglycerides (Mct Oil) 14 gram-120 kcal/15 mL oil Active 15 mL PO daily April 25, 2024 12:00am Fqdnw1-Tvjw9-W52-E-Fa-Fish O il [phone] ar-rt-vpi-mcg capsule (4 sources) Start: 04-25-2024 Xtweh4-Xekf7-D04-E-Fa-Fish O il [phone] cg-ux-faa-mcg capsule Active 1 NMA PO DAILY April 25, 2024 1:00am Start: 04-25-2024 Yldbl6-Mzgm3-D 58-A-Og-Fish Oil [id number] rf-zo-nbg-mcg capsule Active NMA PO April 25, 2024 1:00am Start: 04-25-2024 Hiiwc9-Uocp2-B 31-X-Ms-Fish Oil [phone] za-qj-yme-mcg capsule Active NMA PO April 25, 2024 12:00am Zinc Liver Chelate (6 sources) Start: 07-14-2019 Zinc Liver Zelda late Active 2 {tbl} PO THREE TIMES A DAY 0 July 14, 2019 12:00am Start: 07-14-2019 Zinc Liver Zelda late Active 2 {tbl} PO THREE TIMES A DAY July 14, 2019 12:00am Start: 07-14-2019 Zinc Liver Zelda late Active 2 {tbl} PO THREE TIMES A DAY July 13, 2019 11:00pm Start: 07-14-2019 take 2 tablets by mo ut three times daily Zinc Liver Chelate Active 2 TABLET PO THREE TIMES A DAY July 14, 2019 12:00am Completed/Discontinued Medications Medication Drug Class(es) Dates Sig (Normalized) Sig (Original) A-F BETAFOOD (6 sources) Start: 07-03-2017 End: 07-07-2019 A-F BETAFOOD Discontinued 2 {tbl} PO TWICE A DAY 0 July 03, 2017 12:00am July 07, 2019 1:56pm SUPPLEMENT Start: 07-03-2017 End: 07-07-2019 A-F BETAFOOD Discontinued [...] July 07, 2019 1:56pm Advanced Mitochondrial EGY (6 sources) Start: 07-03-2017 End: 07-07-2019 Advanced Mitochondrial EGY Discontinued 1 {tbl} PO TWICE A DAY 0 July 03, 2017 12:00am July 07, 2019 1:56pm SUPPLEMENT Start: 07-03-2017 End: 07-07-2019 Advanced Mitochondrial EGY [...] aspirin 81 mg delayed release oral tablet (12 sources) Platelet Aggregation Inhibitor, Nonsteroidal Anti-inflammatory Drug Start: 07-14-2019 End: 04-25-2024 take 1 tablet by mouth once daily Aspirin 81 mg tablet,delayed release (DR/EC) Discontinued 81 mg PO DAILY 1 0 July 14, 2019 12:00am April 25, 2024 12:20pm Start: 09-25-2017 End: 07-07-2019 take 1 tablet by mouth once daily Aspirin 81 MG tablet Discontinued 81 mg PO DAILY@0800 30 0 September 25, 2017 12:00am July 07, 2019 2:01pm azithromycin 500 mg oral tablet (9 sources) Macrolide Antimicrobial Start: 06-19-2022 End: 06-29-2022 take 1 tablet by mouth once daily azithromycin 500 mg oral tablet 1 (one) tablet qd for 10 days Quantity: 10 {Tablet} Refills: 0 Ordered: 19-Jun-2022 Lakhwinder CAMPBELL Beryl De DO Start : 19-Jun-2022 End : 29-Jun-2022 Inactive Betaine (6 sources) Methylating Agent Start: 07-14-2019 End: 04-25-2024 Betaine Hydrochloride Discontinued 1 {tbl} PO THREE TIMES A DAY 0 July 14, 2019 12:00am April 25, 2024 [...] DAY July 14, 2019 12:00am Boswella complex (6 sources) Start: 07-14-2019 End: 04-25-2024 Boswella complex Discontinue d 1 {tbl} PO THREE TIMES A DAY 0 July 14, 2019 12:00am April 25, 2024 [...] 12:00am Calcium Lactate 100 mg calcium tablet (4 sources) Start: 07-14-2019 End: 04-25-2024 take 2 [...] 2019 11:00pm April 25, 2024 11:30am CATAPLEX (6 sources) Start: 07-03-2017 End: 07-07-2019 CATAPLEX Discontinued 2 {tbl } PO TWICE A DAY 0 July 03, 2017 12:00am July 07, 2019 1:56pm SUPPLEMENT Start: 07-03-2017 End: 07-07-2019 CATAPLEX Discontinued 2 [...] 12:00am July 07, 2019 1:56pm cataplex a-c (6 sources) Start: 07-14-2019 End: 04-25-2024 cataplex a-c Discontinued 1 {tbl} PO THREE TIMES A DAY 0 July 14, 2019 12:00am April 25, 2024 [...] DAY July 14, 2019 12:00am CATAPLEX C (6 sources) Start: 07-03-2017 End: 07-07-2019 CATAPLEX C Discontinued 1 {t bl} PO TWICE A DAY 0 July 03, 2017 12:00am July 07, 2019 1:56pm SUPPLEMENT Start: 07-03-2017 End: 07-07-2019 CATAPLEX C Discontinued [...] : 15-Sep-2016 End : 22-Sep-2016 Inactive chelaCO (6 sources) Start: 07-14-2019 End: 04-25-2024 chelaCO Discontinued 1 {tbl} PO THREE TIMES A DAY 0 July 14, 2019 12:00am April 25, 2024 [...] one bottle diazePAM 10 mg oral tablet (6 sources) Benzodiazepine Start: 11-10-2017 End: 11-11-2017 take 1 tablet by mouth once as needed Diazepam 10 mg tablet Discontinued 10 mg PO ONCE as needed for sedation 2 1 0 November 10, 2017 12:00am November 10, 2017 12:00am November 11, 2017 12:05am DRENAMIN (6 sources) Start: 07-03-2017 End: 07-07-2019 DRENAMIN Discontinued 3 {tbl} PO TWICE A DAY 0 July 03, 2017 12:00am July 07, 2019 1:56pm ADRENAL Start: 07-03-2017 End: 07-07-2019 DRENAMIN Discontinued 3 [...] July 07, 2019 1:56pm eco thyro 37 (18 sources) Start: 11-04-2019 End: 04-25-2024 eco thyro 37 Discontinued 1 {tbl} PO THREE TIMES A DAY 0 November 04, 2019 11:11am April 25, 2024 [...] 3 {tbl} PO THREE TIMES A DAY 0 July 14, 2019 11:07am November 04, 2019 [...] thyro 37 Discontinued 3 {tbl} PO DAILY 0 July 07, 2019 12:00am July 14, 2019 [...] mg tablet Discontinued 12.5 mg PO DAILY 90 2 November 10, 2017 12:00am July 14, 2018 2:37pm HYDROCORT (6 sources) Start: 07-14-2018 End: 07-07-2019 HYDROCORT Discontinued PO 0 July 14, 2018 12:00am July 07, 2019 1:56pm Start: 07-14-2018 End: 07-07-2019 HYDROCORT Discontinued PO Ma y 2018 11:00pm July 07, 2019 12:56pm Start: 07-14-2018 End: 07-07-2019 HYDROCORT Discontinued PO Ma y 2018 12:00am July 07, 2019 1:56pm ibuprofen 800 mg oral tablet (2 sources) Nonsteroidal Anti-inflammatory Drug Start: 06-21-2024 End: 07-05-2024 take 1 tablet by mouth every eight hours as needed for pain Ibuprofen 800 mg tablet Discontinued 800 mg PO Q8H as needed for pain 30 0 June 21, 2024 12:00am July 05, 2024 3:32pm LIPOTHIAMINE B (6 sources) Start: 07-03-2017 End: 07-07-2019 LIPOTHIAMINE B Discontinued 2 {tbl} PO DAILY 0 July 03, 2017 12:00am July 07, 2019 1:56pm SUPPLEMENT Start: 07-03-2017 End: 07-07-2019 LIPOTHIAMINE B Discontinued [...] mg tablet Discontinued 20 mg PO DAILY 90 3 July 14, 2018 2:50pm July 07, 2019 2:01pm Start: 10-09-2017 End: 10-30-2017 take 1 tablet by mouth once daily Lisinopril 10 mg tablet Discontinued 10 mg PO DAILY 30 1 October 09, 2017 9:42am October 30, 2017 9:59am Start: 09-25-2017 End: 10-09-2017 take 1 tablet by mouth once daily Lisinopril 5 MG tablet Discontinued 5 mg PO DAILY 30 0 September 25, 2017 12:00am October 09, 2017 9:44am magnesium lactate 84 mg extended release oral tablet (6 sources) Start: 07-14-2019 End: 04-25-2024 take 1 [...] 11-May-2020 End : 22-Aug-2020 Inactive nature thyroid (6 sources) Start: 07-03-2017 End: 08-18-2017 nature thyroid Discontinued PO 0 July 03, 2017 12:00am August 18, 2017 11:25am Start: 07-03-2017 End: 08-18-2017 nature thyroid Discontinued PO July 02, 2017 11:00pm August 18, 2017 10:25am Start: 07-03-2017 End: 08-18-2017 nature thyroid Discontinued PO July 03, 2017 12:00am August 18, 2017 11:25am NATURE THYROID 1 GRAIN (6 sources) Start: 07-14-2018 End: 07-07-2019 NATURE THYROID 1 GRAIN Disco ntinued PO TWICE A DAY 0 July 14, 2018 12:00am July 07, 2019 1:56pm Start: 07-14-2018 End: 07-07-2019 NATURE THYROID 1 [...] Discontinued 0.5 g PO TWICE A DAY 0 July 14, 2019 11:04am April 25, 2024 [...] thyroid Discont inued 0.5 g PO DAILY 0 July 07, 2019 12:00am July 14, 2019 [...] above: SEE SCANNED LIST IN CHART T3 (6 sources) Start: 07-14-2018 End: 07-07-2019 T3 Discontinued PO TWICE A DAY 0 July 14, 2018 12:00am July 07, 2019 1:57pm Start: 07-14-2018 End: 07-07-2019 T3 Discontinued PO TWICE A D AY July 13, 2018 11:00pm July 07, 2019 12:57pm Start: 07-14-2018 End: 07-07-2019 T3 Discontinued PO TWICE A D AY July 14, 2018 12:00am July 07, 2019 1:57pm thyroid (JAIL) (20 sources) Nature Throid 65 mg daily Inactive tiZANidine 4 mg oral tablet (19 sources) Central alpha-2 Adrenergic Agonist Start: 1 End: 1 take 1 tablet by mouth twice daily tiZANidine HCl 4 MG Oral Tablet 1 (one) Tablet two times daily for 0 days Quantity: 60 {Tablet} Refills: 1 Ordered: 13-Feb-2021 Stephanie Mtaa LPN Start : 21-Nov-2020 End : 13-Feb-2021 Inactive Nomhcvn-X-Gwakhaayo Sodium Powder (20 sources) Start: 7 End: 0 Mbuozuu-V-Ktewdmvgz Sodium Powder 1 (one) Powder daily for 0 days Quantity: 30 {Tablet} Refills: 0 Ordered: 04-May-2019 Gisselle Garcia LPN Start : 09-Sep-2016 End : 04-May-2019 Discontinued Comments: This order discontinued per [facility]. Comment on above: This order discontin ued per [facility]. Triode - L Thytonine (6 sources) Start: 8 End: 0 Triode - L Thytonine Discontinued 1 {tbl} PO DAILY 0 July 03, 2017 12:00am July 07, 2019 1:57pm T3 Start: 07-03-2017 End: 07-07-2019 Triode - L Thytonine Discont inued 1 {tbl} PO DAILY July 03, 2017 [...] [Type II diabetes mellitus, well controlled] Onset: 08-22-2024 08-03-2019 Chronic Diabetes mellitus without complication (20 [...] Chronic Influenza (14 sources) Influenza Menopausal disorders (14 sources) Postmenopausal bleeding; Translations: [Postmenopausal bleeding] Onset: 07-08-2024 04-25-2024 Chronic Nausea and vomiting (20 sources) Nausea; Translations: [Nausea] Resolved: 11-02-2019 06-22-2019 Episodic Nonspecific chest pain (20 sources) Chest discomfort; Translations: [Chest pressure] Resolved: 11-02-2019 08-03-2019 Episodic Comment on above: stress test 2019 neg Nutritional deficiencies (20 sources) Vitamin D deficiency; Translations: [Vitamin D deficiency] 08-22-2020 Chronic Nutritional deficiencies (6 sources) Vitamin deficiency; Translations: [Vitamin deficiency, unspecified] 09-24-2017 Episodic Other bone disease and musculoskeletal deformities (20 sources) Osteopenia; Translations: [Osteopenia] 06-22-2019 Episodic Other circulatory disease (18 sources) Abnormal chest sounds; Translations: [Abnormal lung sounds] Resolved: 09-25-2022 06-19-2022 Episodic Other connective tissue disease (20 sources) Pain in both feet; Translations: [Foot pain, bilateral] 06-08-2020 Episodic Other connective tissue disease (20 sources) Pain of right calf; Translations: [Pain of right calf] Resolved: 09-05-2021 09-13-2020 Episodic Other connective tissue disease (1 source) Iliotibial band syndrome, unspecified leg; Translations: [Iliotibial band syndrome, unspecified leg] Onset: 09-01-2024 Episodic Other connective tissue disease (1 source) Pain in leg, unspecified; Translations: [Pain in leg, unspecified] Onset: 08-30-2024 Episodic Other diseases of kidney and ureters [...] Chronic Other nutritional; endocrine; and metabolic disorders (6 sources) Obesity; Translations: [Obesity, unspecified] 07-07-2019 Chronic Other screening for suspected conditions (not mental disorders or infectious disease) (8 sources) Endometrium thickened; Translations: [Abnormal findings on diagnostic imaging of other specified body structures] 06-09-2024 Chronic Other screening for suspected conditions (not mental disorders or infectious disease) (1 source) Abnormal findings on diagnostic imaging of other parts of musculoskeletal system; Translations: [Abnormal findings on diagnostic imaging of other parts of musculoskeletal system] Onset: 08-31-2024 Episodic Other skin disorders (20 sources) Infection of [...] 09-25-2022 Episodic Hepatitis (18 sources) Hepatitis Other circulatory disease (1 source) Other specified symptoms and signs involving the circulatory and respiratory systems; Translations: [Other specified symptoms and signs involving the circulatory and respiratory systems] Onset: 06-01-2024 Episodic Other connective tissue disease (3 sources) Pain in both feet; Translations: [Foot pain, bilateral] 05-11-2020 Other female genital disorders (1 source) Polyp of cervix uteri; Translations: [Polyp of cervix uteri] Onset: 05-06-2024 Episodic Other non-traumatic joint disorders (1 source) Pain in right knee; Translations: [Pain in right knee] Onset: 04-11-2024 Episodic Other non-traumatic joint disorders (1 source) Pain in right shoulder; Translations: [Pain in right shoulder] Onset: 04-11-2024 Episodic Other skin disorders (20 [...] Test Name Value Interpretation Reference Range Facility PT D/C Summary (1)on 025 PT D/C Summary (1) [facility] [address] [place] [address] / REHABILITATION SERVICES DISCHARGE SUMMARY MR#: [id number] Acct: [id number] Name: CAMILLE BERNABE Rep #: [id number] : 1950 74 From: Gisselle DEL TORO Referring Dr.: Dr. Beryl Keane DO Status: REG RCR Insurance: [employer]URANCE Discharge Summary D/C summary: It has been my pleasure to treat CAMILLE BERNABE referred by Dr. Beryl Keane DO, with the diagnosis of IT band tendonitis/leg pain. R/o spinal stenosis for a total of 9 visit(s). Discharge Date: 08/29/24 Please see the following information for a summary of their discharge status. Subjective Subjective: Pt feels that the rollator inside her house makes her more functional. They did an MRI on the Lumbar and going to do one on the thoracic. She is not walking much better unless she uses the rollator. She has gotten some good exercises to learn how to do some exercises at home. She was just not doing well with the weather and she hurt so bad. She follow up with her Dr this and next MRI on the . Pain Back pain: Pain Intensity (Out of 10): 0 hip pain: Pain Intensity (Out of 10): 2 B leg pain: Pain Intensity (Out of 10): 2 Overall Improvement % Improvement: 35 Objective Objective/Function: Gait: Walked all the way back to the treatment room with some SOB but did not have to stop to rest on the way back to the treatment room. Goals Goal 1:: I HEP Goal Progress: Goal Met Goal 2:: Be able to walk back to the treatment rooms without having to stop from the waiting room Goal Progress: Goal Met Goal 3:: Decrease R leg pain by 50% with walking Goal Progress: Not Progressing Plan Plan: DC PT back to the Dr for further evaluation D/C Information Discharge Comments: DC PT d/c sentence: If there are questions or concerns regarding this patient's physical therapy, please feel free to call me at [phone]. Thank you for the referral of this patient. Sincerely, Gisselle Domingo, MPT Balance/Gait/Function al tests Balance/Special Test Scores Lower Extremity Functional Score: 19 Improvement % Improvement: 35 08/29/24 1355 CC: Dr. Beryl Keane, DO Signed Normal [facility] Coronary Angiography CTon Coronary Angiography CT [facility] Imaging Services [address] [place] [address] 08/22/24 1529 MR#: [id number] Acct: [id number] Name: CAMILLE BERNABE Rep #: [id number] : 1950 74 From: Larry Hays MD PCP: Dr. Beryl Keane, DO Status:REG REF Y Location: CT Calcium Scoring Date of Study:: 08/22/24 Indications Indications: CAD Coronary Calcium Scoring: High-resolution Computed Tomographic imaging of the chest was performed on [ 08/22/24], with particular attention paid to the coronary arteries. Images from the examination were analyzed for the presence and extent of coronary artery calcification , using coronary calcium quantification software. The patient tolerated the procedure well and there were no complications. The results of the coronary calcification analysis are provided below. Findings Coronary Artery Left Main (LM): 0 Left Anterior Descending (LAD): 0 Left Circumflex (LCX): 0 Right Coronary Artery (RCA): 0 Total Agatston Score: 0 Percentile Rankin Calcium Scoring Interpretation: Different methods to categorize the overall amount of coronary plaque. Overall amount CAC SIS Visual of coronary plaque P1 Mild -100 <2 1-2 vessels with mild amount of plaque P2 Moderate 101-300 3-4 1-2 vessels with moderate amount, 3 vessels with mild amount of plaque P3 Severe 301-999 5-7 3 vessels with moderate amount, 1 vessel with severe amount of plaque P4 Extensive >1000 >8 2-3 vessels with severe amount of plaque Conclusion: No atherosclerotic plaque 08/22/24 1531 Date Larry Hays MD Cosigner Signature (if applicable): Date CC: Dr. Larry Hays MD; Dr. Beryl Keane DO Signed Normal [facility] Limited Chest CT Cardiac Onl yon 08-22-[address] Cardiac Only [facility] Imaging Services [address] [place] [id number] Cardiac Only MR#: [id number] Acct: [id number] Name: CAMILLE BERNABE Rep #: [id number] : 1950 F 74 From: Mario coyle MD PCP: Dr. Beryl Keane DO Status: REG REF Study: Limited Chest CT Cardiac Only Date of Exam: Exam# [id number] Ordering Dr: Beryl Keane DO PROCEDURE: LIMITED CHEST CT CARDIAC ONLY 08/22/2024 REASON FOR EXAM: SCREENING AND INTERMEDIATE CAD RISK TECHNIQUE: LIMITED CHEST CT CARDIAC ONLY CONTRAST: None One or more dose reduction techniques were used (e.g., Automated exposure control, adjustment of the mA and/or kV according to patient size, use of iterative reconstruction technique). RADIATION DOSE SUMMARY: CTDlvol: 12.19 mGy DLP: 219.42 mGycm COMPARISON: None FINDINGS: Small benign-appearing mediastinal and bilateral axillary lymph nodes. Mild coronary artery calcification is seen. Lungs are clear. CT/Limited Chest CT Cardiac Only IMPRESSION: Mild degree of coronary artery calcification. Reading Location: [id number] CC: Dr. Beryl Keane DO Narcotics Agent: Signed Normal [facility] Magnetic resonance imaging r eportOrdered By: Guido Jacinto on 08-14-2024 Study report [facility] Imaging Services [address] [place] [address] Spine Lumbar (Routine) MR#: [id number] Acct: [id number] Name: CAMILLE BERNABE Rep #: [id number] : 1950 F 74 From: Austin Jacinto DO PCP: Dr. Beryl Keane, Status: RE G CLI Study:Spine Lumbar (Routine) Date of Exam: 08/13/24 Exam# [id number] Ordering Dr: Telma Keane DO PROCEDURE: MRI SPINE LUMBAR (ROUTINE) 08/13/2024 REASON FOR EXAM: LOWER EXTREMITY PAIN DIFFUSE UNSPECIFIED TECHNIQUE: Multiplanar and multisequence images were obtained without IV contrast administration. COMPARISON: None. FINDINGS: Lumbar vertebral bodies maintain a normal height. There is mild dextroscoliosisof the lumbar spine. There is grade 1 anterolisthesis of L4-L5. There is diminished signal intensity involving the discs of the lumbar spine related to degenerative disc disease. There are Modic type 1 endplate degenerative changes at L4-L5. There is a nonspecific hypointense T2-weighted and T1-weighted focus involving the L5 vertebral body measuring approximately 14 mm. No acute fracture or subluxation is present. The tip of the conus medullaris terminates at L1-L2. 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 Partial visualization of the thoracic spine demonstrates diffuse hypointense T1-weighted signal involving the T5 vertebral body. Partial visualization of the abdomen demonstrates a prominent right renal cyst measuring proximally 9.4 cm. Individual levels: T12-L1: No disc herniation, central canal stenosis, or neural foraminal narrowing. Facet arthropathy is present. L1-L2: No disc herniation, central canal stenosis, or neural foraminal narrowing. Facet/flavum hypertrophy is identified. L2-L3: Mild disc bulge with facet/flavum hypertrophy. No significant central canal stenosis or neural foraminal narrowing. L3-L4: Mild disc bulge with facet/flavum hypertrophy. No significant central canal stenosis or neural foraminal narrowing. L4-L5: Grade 1 anterolisthesis with disc bulge and facet/flavum hypertrophy results in moderate to severe central canal stenosis. There is mild narrowing of the bilateral lateral recesses. There is mild bilateral neural foraminal narrowing. L5-S1: No disc herniation, central canal stenosis, or right neural foraminal narrowing. Endplate spurring on the left laterally results in moderate left neural foraminal narrowing. MRI/Spine Lumbar (Routine) IMPRESSION: 1. Grade 1 anterolisthesis at L4-L5 with disc bulge and facet/flavum hypertrophyresults in moderate to severe central canal stenosis and mild bilateral neural foraminal narrowing. 2. At L5-S1, left lateral endplate spurring results in moderate left neural foraminal narrowing. 3. 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 Recommend dedicated MRI of the thoracic spine with and without IV contrast. 4. Partial visualization of the thoracic spine demonstrates diffuse hypointense signal involving the T5 vertebral body. Malignancy is not excluded. Additionally, there is hypointense signal focus involving the L5 vertebral body. Consider further evaluation with nuclear medicine bone scan and/or MRI with and without IV contrast. Reading Location: [facility] CC: Dr. Beryl Keane DO ~ Narcotics Agent: Signed [facility] Spine Lumbar (Routine)on Spine Lumbar (Routine) [facility] Imaging Services [address] [place] [address] Spine Lumbar (Routine) MR#: [id number] Acct: [id number] Name: CAMILLE BERNABE Rep #: [id number] : 1950 F 74 From: Guido Jacinto DO PCP: Dr. Beryl Keane DO Status: REG CLI Study: Spine Lumbar (Routine) Date of Exam: 08/13/24 Exam# [id number] Ordering Dr: Beryl Keane DO PROCEDURE: MRI SPINE LUMBAR (ROUTINE) 08/13/2024 REASON FOR EXAM: LOWER EXTREMITY PAIN DIFFUSE UNSPECIFIED TECHNIQUE: Multiplanar and multisequence images were obtained without IV contrast administration. COMPARISON: None. FINDINGS: Lumbar vertebral bodies maintain a normal height. There is mild dextroscoliosis of the lumbar spine. There is grade 1 anterolisthesis of L4-L5. There is diminished signal intensity involving the discs of the lumbar spine related to degenerative disc disease. There are Modic type 1 endplate degenerative changes at L4-L5. There is a nonspecific hypointense T2-weighted and T1-weighted focus involving the L5 vertebral body measuring approximately 14 mm. No acute fracture or subluxation is present. The tip of the conus medullaris terminates at L1-L2. 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 Partial visualization of the thoracic spine demonstrates diffuse hypointense T1-weighted signal involving the T5 vertebral body. Partial visualization of the abdomen demonstrates a prominent right renal cyst measuring proximally 9.4 cm. Individual levels: T12-L1: No disc herniation, central canal stenosis, or neural foraminal narrowing. Facet arthropathy is present. L1-L2: No disc herniation, central canal stenosis, or neural foraminal narrowing. Facet/flavum hypertrophy is identified. L2-L3: Mild disc bulge with facet/flavum hypertrophy. No significant central canal stenosis or neural foraminal narrowing. L3-L4: Mild disc bulge with facet/flavum hypertrophy. No significant central canal stenosis or neural foraminal narrowing. L4-L5: Grade 1 anterolisthesis with disc bulge and facet/flavum hypertrophy results in moderate to severe central canal stenosis. There is mild narrowing of the bilateral lateral recesses. There is mild bilateral neural foraminal narrowing. L5-S1: No disc herniation, central canal stenosis, or right neural foraminal narrowing. Endplate spurring on the left laterally results in moderate left neural foraminal narrowing. MRI/Spine Lumbar (Routine) IMPRESSION: 1. Grade 1 anterolisthesis at L4-L5 with disc bulge and facet/flavum hypertrophy results in moderate to severe central canal stenosis and mild bilateral neural foraminal narrowing. 2. At L5-S1, left lateral endplate spurring results in moderate left neural foraminal narrowing. 3. 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 Recommend dedicated MRI of the thoracic spine with and without IV contrast. 4. Partial visualization of the thoracic spine demonstrates diffuse hypointense signal involving the T5 vertebral body. Malignancy is not excluded. Additionally, there is hypointense signal focus involving the L5 vertebral body. Consider further evaluation with nuclear medicine bone scan and/or MRI with and without IV contrast. Reading Location: [facility] CC: Dr. Beryl Keane DO Narcotics Agent: Signed Normal [facility] Inital Evaluation (1) - PTon 07-29-2024 Inital Evaluation (1) - PT [facility] Physical Therapy [facility] [address] [place] [address] / REHABILITATION SERVICES INITIAL EVALUATION MR#: [id number] Acct: [id number] Name: CAMILLE BERNABE Rep #: [id number] : 1950 74 From: Gisselle DEL TORO Referring Dr.: Dr. Beryl Keane DO Status: REG RCR Insurance: [employer]URANCE Patient's Visit Information Visit Information Visit Information: CAMILLE BERNABE is a 74 year old F referred to Physical Therapy by Dr. Beryl Keane DO with a diagnosis of IT band [...] to perform ADL's, To increase tolerance to activity/condition/po sition, To improve performance and independence with ADL's, To decrease level of supervision to perform tasks, To improve ability of physical actions for home/community/work/l eisure, To improve gait and locomotor functions, To [...] to perform ADL's, To increase tolerance to activity/condition/po sition, To improve performance and independence with ADL's, To decrease level of supervision to perform tasks, To improve ability of physical actions for home/community/wo (more content not included)... Normal [facility] Vehicle Body Maker Office Visit Reporton 07-05-2024 Vehicle Body Maker Office Visit Report [facility] [address], [address] [place] [address] OFFICE VISIT Date of Service: 07/05/24 MR#: [id number] Acct: [id number] Name: CAMILLE BERNABE Rep #: [id number] : 1950 Provider: Dr. 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 07/05/24 1659 Date [facility]: Date (if applicable) CC: Normal [facility] Discharge Instructionon 06-01 Discharge Instruction [facility] Medical Records Department [address] [place] [address] Instructions for Home/Discharge Instructions 06/21/24 1214 MR#: [id number] Acct: [id number] Name: CAMILLE BERNABE Rep #: [id number] : 1950 74 From: Snehal Lozano DO PCP: Dr. Beryl Keane, Status:REG SDC Discharge Instructions Diet Discharge Diet: No restrictions [...] Up With: Snehal Lozano DO When: Call [phone] to schedule appointment. Test Results: Test results from this visit will be discussed in further detail at your follow-up appointment, if applicable. Discharge Plan Admission Primary Reason for Your Visit: hysteroscopy dilation and curettage Attending Provider: Snehal Lozano Primary Care Provider: Beryl Keane Instructions Print Language: [place] Citizen Discharge Orders/Prescriptions Prescriptions: New ibuprofen 800 mg tablet 800 mg PO Q8H PRN (Reason: pain) Qty: 30 0RF Continued catalyn 1 tab PO TID Zinc Liver Chelate 2 tab PO TID MCT Oil 14 gram-120 kcal/15 mL oil 15 ml PO QDAY oekma3-[id number]-E-FA -fish oil [id number] wi-tv-ueu-mcg capsule 1 cap PO DAILY gotu rui [...] CC: Dr. Beryl Keane DO Signed Normal [facility] Immunohistochemical Stainson 06-21-2024 Immunohistochemical Stains -------- Patient Age/Sex Location Account Attending Physician -------- CAMILLE BERNABE 74/F [facility] [id number] Dr. Snehal Lozano, Oli -------- Specimen: [id number] Received: 06/21/24 Status: OG Howell Num: [id number] Spec Type: ENDOM BX/C Subm Dr: Dr. Snehal Lozano, DO HEAD OPERATION: Hysteroscopy, D C, polypectomy PRE-OP DIAGNOSIS: Postmenopausal bleeding, thickened endometrium TISSUE SUBMITTED: A- Cervical polyp, B- Endometrial curettings -------- MICROSCOPIC DIAGNOSIS A. Uterus, cervix, polyp, polypectomy: [...] developed and their performance characteristics determined by [facility]. They may not have been cleared or approved by the U.S. Food and Drug Administration. The FDA has determined that such clearance or approval is not necessary.??? The above immunohistochemical/d ualISH???markers are ordered and reviewed by the Pathologist. [...] in aggregate. Submitted in toto in B1-2. -------- Patient Age/Sex Location Account Attending Physician -------- CAMILLE BERNABE 74/F [facility] [id number] Oli Craft -------- MASSIEL 06/29/2024 CPT:25709u3,[id number],8 8341 -------- Patient Age/Sex Location Account Attending Physician -------- CAMILLE BERNABE 74/F [facility] [id number] Oli Craft -------- Signed (signature on file) Dr. Naye Martin MD 06/29/24 1623 -------- Normal [facility] Comment on above: Performed By: #### P [facility] #### [facility] [address] [place], [address] MR/POSTOP.ANEon 06-21-2024 MR/POSTOP.[facility] Medical Records Department [address] [place] [address] Anesthesia Postop Eval I 06/21/24 1350 MR#: [id number] Acct: [id number] Name: CAMILLE BERNABE Rep #: [id number] : 1950 74 From: Allan Hoffmann CRNA PCP: Dr. Beryl Keane, DO Status:REG SDC Y Race: C Location: [place] [address] Anesthesia: Postop Eval I Current Vital Signs [...] document: Postop Eval 1 completed: Yes 06/21/24 135 Date Allan Hoffmann MILK HOUSE WORKER Cosigner Signature: Date CC: Signed Normal [facility] MR/[id number] 06-21-2024 MR/POSTOPAN2 [facility] Medical Records Department [address] [place] [address] Anesthesia Postop Eval II 06/21/242019 MR#: [id number] Acct: [id number] Name: FLORECITACAMILLECRISTOBAL RICHARDS Rep #: [id number] : 1950 74 From: Hernan Rodriguez MD PCP: Dr. Beryl Keane, DO Status:DEP [facility] Y Race: C Location: [facility] Anesthesia Postop Eval I Sum Postop Eval Completion status Anesthesia document: Postop Eval 1 completed: Yes Anesthesia Postop Eval I Summary Anesthesia Postop Eval I Summary: Anesthesia Postop Eval I: Assessment Summary Airway patent Yes 06/21/24 13:51 [email or web address] [email or web address] [email or web address] Spontaneous unlabored Yes 06/21/24 13:51 MILK [email or web address] [email or web address] respirations Mental status Awake,Calm 06/21/24 13:51 MILK [email or web address] [email or web address] nausea No 06/21/24 13:51 MILK [email or web address] [email or web address].[email or web address] Vomiting No 06/21/24 13:51 MILK HOUSE [email or web address] Anesthesia Postop Eval I: Fluid Summary Crystalloid volume administer 20 06/21/24 13:51 MILK [email or web address] [email or web address].[email or web address] (ml) Colloids volume administered ( ml) Blood Product volume administered (ml) Total IV fluid infused 20 06/21/24 13:51 MILK [email or web address] [email or web address].[email or web address] Anesthesia Postop Eval I: Summary Notes Anesthesia Complication No 06/21/24 13:51 MILK [email or web address] [email or web address] Anesthesia Complication Comment: Post-operative progress note Anesthesia: Postop Eval II Evaluation Mental status: Awake and Calm Pain Level: 2 nausea: No Vomiting: No Complications Anesthesia Complication: No 06/21/242020 Date Hernan Rodriguez MD Cosigner Signature: Date CC: Signed Normal [facility] Operative Reporton Operative Report [facility] Medical Records Department [address] [place] [address] Operative Report 06/21/24 1346 MR#: [id number] Acct: [id number] Name: CAMILLE BERNABE Rep #: [id number] : 1950 74 From: Snehal Lozano DO PCP: Dr. Beryl Keane, DO Status:REG [facility] Location: [place] [address] Problems Associated Problem List Diagnoses (1) Thickened endometrium: (2) Postmenopausal bleeding: Multi Select Codes Urinary/Genital Urinary/Genital CPT Codes: 25761 Hysteroscopy,EMC, Polypectomy and 46243 Hysteroscopic myomectomy Operative Report (Standard) Operative Information Date of Procedure: 06/21/24 Pre-Operative Diagnosis: Thickened endometrium, postmenopausal state Post-Operative Diagnosis: Thickened endometrium, postmenopausal state, endometrial polyp and fibroid Surgery/Procedure Performed: hysteroscopy, dilation and curettage, polypectomy and myomectomy research worker kitchen: No Type of Anesthesia: MAC/Supplemental/Loca l RN Documented Start/Stop Times: Operation Date: 06/21/24 12:45 Case Time Into Pre-Op 06/21/24 11:17 Out of Pre-Op 06/21/24 12:33 Anesthesia Start 06/21/24 12:38 Into Room 06/21/24 12:38 Procedure Start 06/21/24 13:03 Procedure End 06/21/24 13:30 Anesthesia End 06/21/24 13:39 Out of Room 06/21/24 13:39 Procedure Start Time: 13:03 Procedure Stop Time: 13:30 Select all DRAINS/GRAFTS/IMPLANT S that apply: None Estimated Blood Loss: 30cc [...] DO; Dr. Beryl Keane DO Signed Normal [facility] 12 Lead EKGon 06-14-2024 12 Lead EKG [facility] Cardiovascular Services [address] [place] [address] 12 Lead EKG 06/14/24 1001 MR#: [id number] Acct: [id number] Name: CAMILLE BERNABE Rep #: [id number] : 1950 74 From: Link Jeffrey MD Attending Dr: Dr. Snehal Lozano DO Statu s: PRE SDC Ordering Dr: Snehal Lozano DO Date: 5 Location: [facility] Sex: F C Admitted: Test Reason : PREOP Blood Pressure : */* mmHG Vent. Rate : 86 BPM Atrial Rate : 86 BPM P-R Int : 156 ms QRS Dur : 84 ms QT Int : 408 ms P-R-T Axes : 63 45 64 degrees QTcB Int : 488 ms Normal sinus rhythm Minor ST changes Borderline Confirmed by Link Jeffrey ([id number]), sports editor RITA EVERETT ([id number]) on 2024 10:04:47 AM Referred By: Snehal Lozano Confirmed By: Link Jeffrey 06/15/24 1004 Date Link Jeffrey MD CC: Dr. Snehal Lozano DO; Dr. Beryl Keane DO Signed Normal [facility] Anion gap in Serum or Plasma Ordered By: Snehal Santos on 06-14-2024 Anion gap [Moles/Vol] 11 mmol/L 07-14 [facility] BUN/creatinine ratioOrdered By: Snehal Santos on 06-14-2024 Urea nitrogen/Creatinine [Mass ratio] 18.4 mg/mg 10-20 [facility] Bilirubin, totalOrdered By: Snehal Tom on 06-14-2024 Bilirubin [Mass/Vol] 0.25 mg/dL 0.00-1.30 [facility] CBC-Complete Blood Cnt No Di ffon 06-14-2024 Erythrocyte distribution width (RBC) [Ratio] 14.0 % Normal 11.6-14.6 [facility] Comment on above: Performed By: #### L 100.0500, L500.4050, BTSPAT #### [facility] [address] [place], [address] Hematocrit (Bld) [Volume fraction] 42.5 % Normal 37-47 [facility] Comment on above: Performed By: #### L 100.0500, L500.4050, BTSPAT #### [facility] [address] [place], [address] Hemoglobin (Bld) [Mass/Vol] 13.8 g/dL Normal 12.0-15.0 [facility] Comment on above: Performed By: #### L 100.0500, L500.4050, BTSPAT #### [facility] [address] [place], [address] MCH (RBC) [Entitic mass] 28.6 pg Normal 27.0-32.0 [facility] Comment on above: Performed By: #### L 100.0500, L500.4050, BTSPAT #### [facility] [address] [place], [address] MCHC (RBC) [Mass/Vol] 32.5 g/dL Normal 32-36 [facility] Comment on above: Performed By: #### L 100.0500, L500.4050, BTSPAT #### [facility] [address] [place], [address] MCV (RBC) [Entitic vol] 88.2 fL Normal 81-99 [facility] Comment on above: Performed By: #### L 100.0500, L500.4050, BTSPAT #### [facility] [address] [place], [address] Platelet mean volume (Bld) [Entitic vol] 9.6 fL Normal 6.2-12.0 [facility] Comment on above: Performed By: #### L 100.0500, L500.4050, BTSPAT #### [facility] [address] [place], [address] Platelets (Bld) [#/Vol] 330 10*3/uL Normal 150-450 [facility] Comment on above: Performed By: #### L 100.0500, L500.4050, BTSPAT #### [facility] [address] [place], [address] RBC (Bld) [#/Vol] 4.82 10*6/uL Normal 4.2-5.4 [facility] Comment on above: Performed By: #### L 100.0500, L500.4050, BTSPAT #### [facility] [address] [place], [address] RDW SD 45.1 fl High 35.1-43.9 [facility] Comment on above: Performed By: #### L 100.0500, L500.4050, BTSPAT #### [facility] [address] [place], [address] WBC (Bld) [#/Vol] 6.5 10*3/uL Normal 4.4-11.0 [facility] Comment on above: Performed By: #### L 100.0500, L500.4050, BTSPAT #### [facility] [address] [place], [address] Carbon dioxide, total [Moles /volume] in Central venous bloodOrdered By: Snehal Santos on 06-14-2024 CO2 [Moles/Vol] 26.8 mmol/L 21.0-32.0 [facility] Chloride assayOrdered By: Can cotton Tom on 06-14-2024 Chloride [Moles/Vol] 101 mmol/L 98-108 [facility] Comprehensive Metabolic Prof ilon 06-14-2024 Albumin [Mass/Vol] 4.2 g/dL Normal 3.4-4.8 [facility] Comment on above: Performed By: #### L 100.0500, L500.4050, BTSPAT ####[facility] [address] [place], [address] Albumin/Globulin [Mass ratio] 1.3 {ratio} Normal 0.9-2.4 [facility] Comment on above: Performed By: #### L 100.0500, L500.4050, BTSPAT ####[facility] [address] [place], [address] ALK PHOS 106 U/L High 35-104 [facility] Comment on above: Performed By: #### L 100.0500, L500.4050, BTSPAT ####[facility] [address] [place], [address] ALT [Catalytic activity/Vol] 16 U/L Normal <=34 [facility] Comment on above: Performed By: #### L 100.0500, L500.4050, BTSPAT ####[facility] [address] [place], [address] AST [Catalytic activity/Vol] 22 U/L Normal <=31 [facility] Comment on above: Result Comment: Hemo lysis present, Results??could be affected. ?? Performed By: #### L 100.0500, L500.4050, BTSPAT ####[facility] [address] [place], [address] Bilirubin [Mass/Vol] 0.25 mg/dL Normal 0.00-1.30 [facility] Comment on above: Performed By: #### L 100.0500, L500.4050, BTSPAT ####[facility] [address] [place], [address] BUN/CRE 18.4 RATIO Normal 10-20 [facility] Comment on above: Performed By: #### L 100.0500, L500.4050, BTSPAT ####[facility] [address] [place], [address] Calcium [Mass/Vol] 9.5 mg/dL Normal 7.6-11.0 [facility] Comment on above: Performed By: #### L 100.0500, L500.4050, BTSPAT ####[facility] [address] [place], [address] Chloride [Moles/Vol] 101 mmol/L Normal 98-108 [facility] Comment on above: Performed By: #### L 100.0500, L500.4050, BTSPAT ####[facility] [address] [place], [address] CO2 [Moles/Vol] 26.8 mmol/L Normal 21.0-32.0 [facility] Comment on above: Performed By: #### L 100.0500, L500.4050, BTSPAT ####[facility] [address] [place], [address] Creatinine [Mass/Vol] 0.73 mg/dL Normal 0.70-1.20 [facility] Comment on above: Performed By: #### L 100.0500, L500.4050, BTSPAT ####[facility] [address] [place], [address] GAP 11 Normal 5-15 [facility] Comment on above: Performed By: #### L 100.0500, L500.4050, BTSPAT ####[facility] [address] [place], [address] GFR/1.73 sq M.predicted among non-blacks MDRD (S/P/Bld) [Vol rate/Area] 86 mL/min/{1.73_m2} Normal >60 [facility] Comment on above: Result Comment: mL/m in/1.73m2 CKD-EPI Creatinine Equation (2020) Performed By: #### L 100.0500, L500.4050, BTSPAT ####[facility] [address] [place], [address] Globulin (S) [Mass/Vol] 3.1 g/dL Normal 2.2-4.[address] [facility] Comment on above: Performed By: #### L 100.0500, L500.4050, BTSPAT ####[facility] [address] [place], [address] Glucose [Mass/Vol] 143 mg/dL High 70-99 [facility] Comment on above: Performed By: #### L 100.0500, L500.4050, BTSPAT ####[facility] [address] [place], [address] Potassium [Moles/Vol] 4.3 mmol/L Normal 3.3-5.1 [facility] Comment on above: Result Comment: Hemo lysis present, Results??could be affected. ?? Performed By: #### L 100.0500, L500.4050, BTSPAT ####[facility] [address] [place], [address] Sodium [Moles/Vol] 139 mmol/L Normal 133-145 [facility] Comment on above: Performed By: #### L 100.0500, L500.4050, BTSPAT ####[facility] [address] [place], [address] T PROT 7.3 g/dL Normal 5.9-8.4 [facility] Comment on above: Performed By: #### L 100.0500, L500.4050, BTSPAT ####[facility] [address] [place], [place], [address] Urea nitrogen [Mass/Vol] 14 mg/dL Normal 4-19 [facility] Comment on above: Performed By: #### L 100.0500, L500.4050, BTSPAT ####[facility] [address] [place], [address] Erythrocyte distribution wid th ratioOrdered By: Snehal Santos on 06-14-2024 Erythrocyte distribution width (RBC) [Ratio] 14.0 % 11.6-14.6 [facility] Erythrocyte distribution wid th standard deviationOrdered By: Snehal Santos on 06-14-2024 Erythrocyte distribution width (RBC) [Ratio] 45.1 fl High 35.1-43.9 [facility] Glomerular filtration rate ( GFR) estimation/1.73 sq m using serum, plasma, or whole bOrdered By: Snehal Santos on 06-14-2024 GFR/1.73 sq M.predicted among non-blacks MDRD (S/P/Bld) [Vol rate/Area] 86 mL/min/{1.73_m2} >60 [facility] Comment on above: mL/min/1.73m2 CKD-EP I Creatinine Equation (2020) Hematocrit Auto (Bld) [Volum e fraction]Ordered By: Snehal Santos on 06-14-2024 Hematocrit (Bld) [Volume fraction] 42.5 % 37-47 [facility] Hemoglobin measurementOrdere d By: Snehal Santos on 06-14-2024 Hemoglobin (Bld) [Mass/Vol] 13.8 g/dL 12.0-15.0 [facility] Laboratory - Chemistry and C hemistry - challengeOrdered By: Snehal Santos on 06-14-2024 AST [Catalytic activity/Vol] 22 U/L <32 [facility] Comment on above: Hemolysis present, R esults could be affected. MCV (mean corpuscular volume ) determinationOrdered By: Snehal Santos on 06-14-2024 MCV (RBC) [Entitic vol] 88.2 fL 81-[address] [facility] MR/PAT.SAHARAsandra 06-14-2024 MR/PAT.ANE [facility] Medical Records Department [address] [place] [address] PAT - Anesthesia 06/14/24 1518 MR#: [id number] Acct: [id number] Name: CAMILLE BERNABE Rep #: [id number] : 1950 74 From: Hernan Rodriguez MD PCP: Dr. Beryl Keane, DO Status:PRE SDC Y Race: C [place] [facility] [place] Pre-Assessment Diagnosis/Proposed Procedure Planned Operative Procedure(s): HYSTERSCOPY D C, POLYPECTOMY Anesthesia History Anesthesia History - medicaid plan compliance director: Anesthesia History - medicaid plan compliance director Hx Hospitalization No 06/09/24 11:32 Any Problems [...] take am of surgery PONV PONV - medicaid plan compliance director: PONV - medicaid plan compliance director Female Yes 06/09/24 11:32 HX of Motion [...] 04/25/24 11:09 Respiratory Assessment Respiratory Assessment - medicaid plan compliance director: Respiratory Tract Infection Hx - medicaid plan compliance director Hx Respiratory Tract Infection No 06/09/24 11:32 STOP Sleep Apnea STOP Sleep Apnea - medicaid plan compliance director: STOP Sleep Apnea - medicaid plan compliance director Hx Hypertension No 06/09/24 11:32 Hx Sleep [...] Tobacco Use History Tobacco Use History - 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 confused, unrespo /Reproductio n History /Reproductiv e History - medicaid plan compliance director: /Reproductiv e Hx- medicaid plan compliance director Hx Now No 06/09/24 11:32 Gestational Age (in weeks): EDC: Hx Hx Para Hx Section SAB No 06/09/24 11:32 PFS Medical History (Updated 06/09/24 @ 17:33 by [...] kcal/15 mL oral oil (MCT Oil) omega 3-C0-C51P29-N-ZD-yege oil 600 1 cap PO DAILY 04/25/24 Unknown Hi story mg-20 mg-500 mcg-800 mcg capsule A (more content not included)... Normal [facility] Mean corpuscular hemoglobin (MCH) determinationOrdered By: Snehal Santos on 06-14-2024 MCH (RBC) [Entitic mass] 28.6 pg 27.0-32.0 [facility] Mean corpuscular hemoglobin concentration (MCHC) determinationOrdered By: Snehal Santos on 06-14-2024 MCHC (RBC) [Mass/Vol] 32.5 g/dL 32-36 [facility] Mean platelet volume determi nationOrdered By: Snehal Santos on 06-14-2024 Platelet mean volume (Bld) [Entitic vol] 9.6 fL 6.2-12.0 [facility] Platelet countOrdered By: Can Santos on 06-14-2024 Platelets (Bld) [#/Vol] 330 10*3/uL 150-450 [facility] Potassium measurement (mass/ volume)Ordered By: Snehal Santos on 06-14-2024 Potassium (Unsp spec) [Mass/Vol] 4.3 mmol/L 3.3-5.1 [facility] Comment on above: Hemolysis present, R esults could be affected. RBC Auto (Bld) [#/Vol]Ordere d By: Snehal Santos on 06-14-2024 RBC (Bld) [#/Vol] 4.82 10*6/uL 4.2-5.4 [facility] Serum creatinine measurement (mass/volume)Ordered By: Senhal Santos on 06-14-2024 Creatinine [Mass/Vol] 0.73 mg/dL 0.70-1.20 [facility] Serum globulin measurementOr dered By: Snehal Santos on 06-14-2024 Globulin (S) [Mass/Vol] 3.1 g/dL 2.2-4.2 [facility] Serum glucose measurement (m ass/volume)Ordered By: Snehal Santos on 06-14-2024 Glucose [Mass/Vol] 143 mg/dL High 70-99 [facility] Serum or plasma alanine mireles otransferase (ALT) measurementOrdered By: Snehal Santos on 06-14-2024 ALT [Catalytic activity/Vol] 16 U/L <35 [facility] Serum or plasma albumin tung urement (mass/volume)Ordered By: Snehal Santos on 06-14-2024 Albumin [Mass/Vol] 4.2 g/dL 3.4-4.8 [facility] Serum or plasma albumin/glob ulin mass ratioOrdered By: Snehal Santos on 06-14-2024 Albumin/Globulin [Mass ratio] 1.3 {ratio} 0.9-2.4 [facility] Serum or plasma alkaline deonna sphatase measurementOrdered By: Snehal Santos on 06-14-2024 ALP [Catalytic activity/Vol] 106 U/L High 35-104 [facility] Serum or plasma calcium tung urement (mass/volume)Ordered By: Snehal Santos on 06-14-2024 Calcium [Mass/Vol] 9.5 mg/dL 7.6-11.0 [facility] Serum or plasma urea nitroge n measurement (mass/volume)Ordered By: Snehal Santos on 06-14-2024 Urea nitrogen [Mass/Vol] 14 mg/dL 4-19 [facility] Sodium levelOrdered By: Katharine Santos on 06-14-2024 Sodium [Moles/Vol] 139 mmol/L 133-145 [facility] Total proteinOrdered By: Chloé Santos on 06-14-2024 Protein [Mass/Vol] 7.3 g/dL 5.9-8.4 [facility] Type AND Screen - PAT ONLYon 06-14-2024 Ab SCREEN GEL Negative Normal [facility] Comment on above: Order Comment: [place] for Laboratory Test [id number]/ANNSHYSTERSCOPY, D C Performed By: #### L 100.0500, L500.4050, BTSPAT ####[facility] [address] [place], [address] White blood cell (WBC) count Ordered By: Snehal Santos on 06-14-2024 WBC (Bld) [#/Vol] 6.5 10*3/uL 4.4-11.0 [facility] Vehicle Body Maker Office Visit Reporton 06-09-2024 Vehicle Body Maker Office Visit Report [facility]'[address], [address] [place] [address] OFFICE VISIT Date of Service: 06/09/24 MR#: [id number] Acct: [id number] Name: CAMILLE BERNABE Rep #: [id number] : 1950 Provider: Dr. 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 Normal [facility] Echo Completeon 05-30-2024 Echo Complete [facility] [address] [place] [address] Echo Complete 05/30/24 1359 MR#: [id number] Acct: [id number] Name: CAMILLE BERNABE Rep #: [id number] : 1950 73 From: Larry Hays MD Attending Dr: Dr. Beryl Keane DO [...] 1454 Date Larry Hays MD CC: Dr. Beryl Keane DO Date Dictated: 05/30/24 1359 Date Transcribed: 05/30/24 145 Narcotics Agent: Signed Normal [facility] Echocardiogram study reportO rdered By: Larry Hays on 05-30-2024 Study report [facility] [address] [place] [address] Echo Complete 05/30/24 1359 MR#: [id number] Acct: [id number] Name: CAMILLE BERNABE Rep #:[id number] : 1950 73 From: Larry Baird Attending Dr: Dr. Beryl Keane, DO Status: REG CLI Ordering Dr: Beryl Keane DO Date: 05/30/24 Location: [facility] Sex: F C Admitted: Reason For Study [...] By: Ted Otero RCS 05/30/24 1454 Date _ Larry Hays MD CC: Dr. Beryl Keane, DO ~ Date Dictated: 05/30/24 1359 Date Transcribed: 05/30/24 1454 Narcotics Agent: Signed [facility] Work Phone: Surgical pathology reportOrd ered By: Juvenal Baig on 04-27-2024 Surgical pathology study [facility] Other Vehicle Body Maker Office Visit Reporton 04-25-2024 Vehicle Body Maker Office Visit Report [facility] [address], [address] [place] [address] OFFICE VISIT Date of Service: 04/25/24 MR#: [id number] Acct: [id number] Name: CAMILLE BERNABE Rep #: [id number] : 1950 Provider: Dr. 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 Snehal Lozano, DO) Ingrown toenail Hypothyroidism Essential hypertension Thoracic [...] as documente (more content not included)... Normal [facility] Surgery Specimen Level Jatin 04-25-2024 Surgery Specimen Level IV -------- Patient Age/Sex Location Account Attending Physician -------- CAMILLE BERNABE 73/F LABSPEC [id number] Dr. Snehal Lozano, Oli -------- Specimen: [id number] Received: 04/25/24 Status: OG Howell Num: [id number] Spec Type: CERV Subm Dr: Dr. Snehal Lozano, HEAD OPERATION: Polypectomy PRE-OP DIAGNOSIS: Cervical polyp TISSUE SUBMITTED: A- Cervical polyp, B- Endometrial lining -------- MICROSCOPIC DIAGNOSIS A. Cervical polyp, polypectomy: Fragments of inflamed benign endometrial polyp with focal area of infarction. See comment. B. Endometrial biopsy: Strips of benign endometrial epithelium. Polypoid fragments of endometrial tissue may represent fragments of endometrial polyp with disordered proliferative endometrium. See comment. . 04/27/2024 COMMENT A. The specimen shows disordered [...] specimen is totally submitted in one cassette. 04/26/2024 TC:5 CPT:03308t4 -------- Patient Age/Sex Location Account Attending Physician -------- CAMILLE BERNABE 73/F LABSPEC [id number] Oli Craft -------- Signed (signature on file) Dr. Juvenal Baig MD 04/27/24 1144 -------- Normal [facility] Comment on above: Performed By: #### Ac JAMES ####[facility] [address] [place], [address] Chest PA and Lateralon 04-12 Chest PA and Lateral [facility] Imaging Services [address] [place], [place] [address] Chest PA and Lateral MR#: [id number] Acct: [id number] Name: CAMILLE BERNABE Rep #: [id number] : 1950 F 73 From: Malcolm Espinosa MD PCP: Dr. Beryl Keane DO Status: DEP AMB Study: Chest PA and Lateral Date of Exam: 04/12/24 Exam# [id number] Ordering Dr: Araceli Wills ESTIMATOR AND DRAFTER-C EXAM: XR Chest, 2 Views CLINICAL INDICATION: TECHNIQUE: Frontal and lateral views of the chest. COMPARISON: No relevant prior studies available. FINDINGS: LUNGS AND PLEURAL SPACES: See below. HEART: Cardiomegaly with mild congestion. MEDIASTINUM: Unremarkable. Normal mediastinal contour. BONES/JOINTS: Unremarkable. No acute fracture. RAD/Chest PA and Lateral IMPRESSION: Cardiomegaly with mild congestion. Reading [facility] CC: ESTIMATOR AND DRAFTER-C Araceli Wills; Dr. Beryl Keane DO Narcotics Agent: Signed Normal [facility] PT D/C Summary (1)on 025 PT D/C Summary (1) [facility] Physical Therapy [facility] [address] [place] [address] [address] [place] [address] / REHABILITATION SERVICES DISCHARGE SUMMARY MR#: [id number] Acct: [id number] Name: CAMILLE BERNABE Rep #: [id number] : 1950 73 From: Kimani Wills DPT, OCS, CSCS Referring DrSonny: Dr. Beryl Keane DO Status: REG RCR Insurance: [employer]URANCE Discharge [...] please feel free to call me at [phone]. Thank you for the referral of this patient. Sincerely, Kimani Wills, DPT, OCS, CSCS Balance/Gait/Function al tests Balance/Special Test Scores Quick DASH Score: 6.8175 Improvement % Improvement: 50 04/08/24 1325 CC: Dr. Beryl Keane DO EBG Signed Normal [facility] Pelvic (Non )on 02-01 Pelvic (Non ) [facility] Imaging Services [address] [place] [address] Pelvic (Non ) MR#: [id number] Acct: [id number] Name: CAMILLE BERNABE Rep #: [id number] : 1950 F 73 From: Jimenez Iniguez MD PCP: Dr. Beryl Keane DO Status: REG CLI Study: Pelvic (Non ) Date of Exam: 02/29/24 Exam# [id number] Ordering Dr: Beryl Keane DO [id number] STUDY: ULTRASOUND OF THE FEMALE PELVIS - [...] at 13:43 EST , CC: Dr. Beryl Keane DO Narcotics Agent: Signed Normal [facility] Inital Evaluation (1) - PTon 02-03-2024 Inital Evaluation (1) - PT [facility] Physical Therapy [facility] [place] [address] / REHABILITATION SERVICES INITIAL EVALUATION MR#: [id number] Acct: [id number] Name: CAMILLE BERNABE Rep #: [id number] : 1950 73 From: Kimani Wills DPT, [...] Date of Evaluation: 02/03/24 Physical Therapist: Kimani Wills DPT, OCS, CSCS Visit Plan Frequency: 2x [...] PT slowly but I without antalgia today. Trasnfers chair I and bed I. cervical aROM [...] motor function and To increase tolerance to activity/condition/po sition Therapeutic Exercise to Include: Strength training, Postural training, In an aquatic setting, Passive ROM and Active ROM For the Purpose of:: To decrease pain, To improve nutrient delivery to tissue, To improve muscle performance and motor function, To improve ability of physical actions for home/community/work/l eisure and To improve gait and locomotor functions Text: Thank you for the opportunity to evaluate your patient. For Medicare and Medicare HMO plans, please review the plan of care and approve it. It will need to be FAXED BACK to us at [phone] for Medicare purposes. For Medicare only, by signing this I certify the plan of care. Please let me know if there are questions or concerns regarding this plan of care. Physician Signature: Date : 02/03/24 1157 CC: Dr. Beryl Keane DO JOSE Signed Normal [facility] Amylaseon 10-02-2023 JOE 42 U/L Normal 25-115 [facility] Comment on above: Performed By: #### L 100.0100, L500.2500, L501.2450, L501.2400, L500.3400 ####[facility] [address] [place], [address] Basic Metabolic Profile (BMP )on 10-02-2023 BUN/CRE 16.4 RATIO Normal 10-20 [facility] Comment on above: Performed By: #### L 100.0100, L500.2500, L501.2450, L501.2400, L500.3400 ####[facility] [address] [place], [address] CA,Total 9.4 mg/dL Normal 8.5-10.1 [facility] Comment on above: Performed By: #### L 100.0100, L500.2500, L501.2450, L501.2400, L500.3400 ####[facility] [address] [place], [address] Chloride [Moles/Vol] 106 mmol/L Normal 98-107 [facility] Comment on above: Performed By: #### L 100.0100, L500.2500, L501.2450, L501.2400, L500.3400 ####[facility] [address] [place], [address] CO2 [Moles/Vol] 30.0 mmol/L Normal 21.0-32.0 [facility] Comment on above: Performed By: #### L 100.0100, L500.2500, L501.2450, L501.2400, L500.3400 ####[facility] [address] [place], [address] Creatinine [Mass/Vol] 0.79 mg/dL Normal 0.55-1.02 [facility] Comment on above: Result Comment: The validity of the calculated GFR GFRAA in patients over 70 years has not been determined. Clinical correlation is essential. Performed By: #### L 100.0100, L500.2500, L501.2450, L501.2400, L500.3400 ####[facility] [address] [place], [address] EST GFR - AA 91 mL/min Normal >60 [facility] Comment on above: Result Comment: Afri can Icelandic GFR Calc Performed By: #### L 100.0100, L500.2500, L501.2450, L501.2400, L500.3400 ####[facility] [address] [place], [address] GAP 5 Normal 5-15 [facility] Comment on above: Performed By: #### L 100.0100, L500.2500, L501.2450, L501.2400, L500.3400 ####[facility] [address] [place], [address] GFR/1.73 sq M.predicted among non-blacks MDRD (S/P/Bld) [Vol rate/Area] 76 mL/min/{1.73_m2} Normal >60 [facility] Comment on above: Result Comment: Non- GFR Calc Performed By: #### L 100.0100, L500.2500, L501.2450, L501.2400, L500.3400 ####[facility] [address] [place], [address] Glucose [Mass/Vol] 124 mg/dL High 74-106 [facility] Comment on above: Result Comment: Fast ing Glucose result from 100 to 125 mg/dL suggests IMPAIRED HOMEOSTASIS per A.D.A. criteria. Performed By: #### L 100.0100, L500.2500, L501.2450, L501.2400, L500.3400 ####[facility] [address] [place], [address] Potassium [Moles/Vol] 4.5 mmol/L Normal 3.5-5.1 [facility] Comment on above: Performed By: #### L 100.0100, L500.2500, L501.2450, L501.2400, L500.3400 ####[facility] [address] [place], [address] Sodium [Moles/Vol] 141 mmol/L Normal 136-145 [facility] Comment on above: Performed By: #### L 100.0100, L500.2500, L501.2450, L501.2400, L500.3400 ####[facility] [address] [place], [address] Urea nitrogen [Mass/Vol] 13 mg/dL Normal 7-18 [facility] Comment on above: Performed By: #### L 100.0100, L500.2500, L501.2450, L501.2400, L500.3400 ####[facility] [address] [place], [address] CBC W/Diff, Automatedon 08-0 2-2023 Absolute Lymph 1.73 X10 3/uL Normal 0.83-4.51 [facility] Comment on above: Performed By: #### L 100.0100, L500.2500, L501.2450, L501.2400, L500.3400 ####[facility] [address] [place], [address] Absolute Neut 4.4 X10 3/uL Normal 2.0-7.7 [facility] Comment on above: Performed By: #### L 100.0100, L500.2500, L501.2450, L501.2400, L500.3400 ####[facility] [address] [place], [address] Basophils/100 WBC (Bld) 0.4 % Normal 0-[address] [facility] Comment on above: Performed By: #### L 100.0100, L500.2500, L501.2450, L501.2400, L500.3400 ####[facility] [address] [place], [address] Eosinophils/100 WBC (Bld) 0.0 % Normal 0-5 [facility] Comment on above: Performed By: #### L 100.0100, L500.2500, L501.2450, L501.2400, L500.3400 ####[facility] [address] [place], [address] Erythrocyte distribution width (RBC) [Ratio] 13.4 % Normal 11.6-14.6 [facility] Comment on above: Performed By: #### L 100.0100, L500.2500, L501.2450, L501.2400, L500.3400 ####[facility] [address] [place], [address] Hematocrit (Bld) [Volume fraction] 44.0 % Normal 37-47 [facility] Comment on above: Performed By: #### L 100.0100, L500.2500, L501.2450, L501.2400, L500.3400 ####[facility] [address] [place], [address] Hemoglobin (Bld) [Mass/Vol] 13.8 g/dL Normal 12.0-15.0 [facility] Comment on above: Performed By: #### L 100.0100, L500.2500, L501.2450, L501.2400, L500.3400 ####[facility] [address] [place], [address] IG% 0.300 Normal 0.0-0.9 [facility] Comment on above: Result Comment: IG% - Immature Granulocytes (promyelocytes, myelocytes and metamyelocytes) > 1% indicates that a LEFT SHIFT is Present. Performed By: #### L 100.0100, L500.2500, L501.2450, L501.2400, L500.3400 ####[facility] [address] [place], [address] Lymphocytes/100 WBC (Bld) 25.4 % Normal 19-41 [facility] Comment on above: Performed By: #### L 100.0100, L500.2500, L501.2450, L501.2400, L500.3400 ####[facility] [address] [place], [address] MCH (RBC) [Entitic mass] 28.0 pg Normal 27.0-32.0 [facility] Comment on above: Performed By: #### L 100.0100, L500.2500, L501.2450, L501.2400, L500.3400 ####[facility] [address] [place], [address] MCHC (RBC) [Mass/Vol] 31.4 g/dL Low 32-36 [facility] Comment on above: Performed By: #### L 100.0100, L500.2500, L501.2450, L501.2400, L500.3400 ####[facility] [address] [place], [address] MCV (RBC) [Entitic vol] 89.2 fL Normal 81-[address] [facility] Comment on above: Performed By: #### L 100.0100, L500.2500, L501.2450, L501.2400, L500.3400 ####[facility] [address] [place], [address] Monocytes/100 WBC (Bld) 8.5 % Normal 0-[address] [facility] Comment on above: Performed By: #### L 100.0100, L500.2500, L501.2450, L501.2400, L500.3400 ####[facility] [address] [place], [address] Neutrophils/100 WBC (Bld) 65.4 % Normal 47-70 [facility] Comment on above: Performed By: #### L 100.0100, L500.2500, L501.2450, L501.2400, L500.3400 ####[facility] [address] [place], [address] Nucleated RBC (Bld) [#/Vol] 0 10*3/uL Normal 0-5 [facility] Comment on above: Performed By: #### L 100.0100, L500.2500, L501.2450, L501.2400, L500.3400 ####[facility] [address] [place], [address] Platelet mean volume (Bld) [Entitic vol] 9.9 fL Normal 6.2-12.0 [facility] Comment on above: Performed By: #### L 100.0100, L500.2500, L501.2450, L501.2400, L500.3400 ####[facility] [address] [place], [address] Platelets (Bld) [#/Vol] 357 10*3/uL Normal 150-450 [facility] Comment on above: Performed By: #### L 100.0100, L500.2500, L501.2450, L501.2400, L500.3400 ####[facility] [address] [place], [address] RBC (Bld) [#/Vol] 4.93 10*6/uL Normal 4.2-5.4 [facility] Comment on above: Performed By: #### L 100.0100, L500.2500, L501.2450, L501.2400, L500.3400 ####[facility] [address] [place], [address] RDW SD 43.9 fl Normal 35.1-43.9 [facility] Comment on above: Performed By: #### L 100.0100, L500.2500, L501.2450, L501.2400, L500.3400 ####[facility] [address] [place], [address] WBC (Bld) [#/Vol] 6.8 10*3/uL Normal 4.4-11.0 [facility] Comment on above: Performed By: #### L 100.0100, L500.2500, L501.2450, L501.2400, L500.3400 ####[facility] [address] [place], [address] Knee 4 or More Viewson 10-01 Knee 4 or More Views [facility] [address] [place] [address] Knee 4 or More Views MR#: [id number] Acct: [id number] Name: CAMILLE BERNABE Rep #: [id number] : [id number] F 73 From: Davide Segura MD PCP: Dr. Beryl Keane, DO Status: DEP AMB Study: Knee 4 or More Views Date of Exam: 10/02/23 Exam# [id number] Ordering Dr: Araceli Wills ESTIMATOR AND DRAFTER-C [id number] STUDY: X-RAY - RIGHT KNEE REASON FOR [...] CC: SANDEEP Wills; Dr. Beryl Keane DO Narcotics Agent: Signed Normal [facility] Lipaseon 10-02-2023 Lipase [Catalytic activity/Vol] 30 U/L Normal 13-75 [facility] Comment on above: Result Comment: Tsering mejía note: LIPASE revised reference range effective 22. New Lipase methodology. Expected to produce lower values than the previous assay method. NEW Reference Range: 13 - 75 U/L Performed By: #### L 100.0100, L500.2500, L501.2450, L501.2400, L500.3400 ####[facility] [address] [place], [place], [id number] Liver Profileon 10-02-2023 Albumin [Mass/Vol] 3.7 g/dL Normal 3.2-5.0 [facility] Comment on above: Performed By: #### L 100.0100, L500.2500, L501.2450, L501.2400, L500.3400 ####[facility] [address] [place], [place], [id number] ALK P 101 U/L Normal 45-117 [facility] Comment on above: Performed By: #### L 100.0100, L500.2500, L501.2450, L501.2400, L500.3400 ####[facility] [address] [place], [address] ALT [Catalytic activity/Vol] 33 U/L Normal 13-56 [facility] Comment on above: Performed By: #### L 100.0100, L500.2500, L501.2450, L501.2400, L500.3400 ####[facility] [address] [place], [address] AST [Catalytic activity/Vol] 25 U/L Normal 15-37 [facility] Comment on above: Performed By: #### L 100.0100, L500.2500, L501.2450, L501.2400, L500.3400 ####[facility] [address] [place], [address] Bilirubin [Mass/Vol] 0.30 mg/dL Normal 0.20-1.00 [facility] Comment on above: Result Comment: For patients on eltrombopag therapy, use of Dimension [place] TBIL is not recommended. Performed By: #### L 100.0100, L500.2500, L501.2450, L501.2400, L500.3400 ####[facility] [address] [place], [address] Bilirubin.direct [Mass/Vol] 0.11 mg/dL Normal 0.00-0.30 [facility] Comment on above: Performed By: #### L 100.0100, L500.2500, L501.2450, L501.2400, L500.3400 ####[facility] [address] [place], [address] Globulin (S) [Mass/Vol] 3.7 g/dL Normal 2.2-4.2 [facility] Comment on above: Performed By: #### L 100.0100, L500.2500, L501.2450, L501.2400, L500.3400 ####[facility] [address] [place], [address] T PROT 7.4 g/dL Normal 6.4-8.2 [facility] Comment on above: Performed By: #### L 100.0100, L500.2500, L501.2450, L501.2400, L500.3400 ####[facility] [address] [place], [address] Blood Glucose , Office (8296 2)Ordered By: Ashwinartis Shah on 01-01-2023 Glucose Glucometer (BldC) [Moles/Vol] 124 1 Normal [facility]; [facility] Work Phone: HgA1C , Office ([phone])Ordere d By: Ashwinartis Shah on 01-01-2023 HbA1c (Bld) [Mass fraction] 6.5 % Normal 4.6 - 7.1 [facility]; [facility] Work Phone: Blood Glucose , Office ([phone])Ordered By: Ashwinartis Shah on 09-25-2022 Glucose Glucometer (BldC) [Moles/Vol] 140 1 Normal [facility]; [facility] Work Phone: HgA1C , Office (95698)Ordere d By: Ashwinartis Shah on 09-25-2022 HbA1c (Bld) [Mass fraction] 6.3 % Normal 4.6 - 7.1 [facility]; [facility] Work Phone: CALCIFIDIOL (81993) VIT D 25 Ordered By: Proctologist on 09-17-2022 25-hydroxyvitamin D [Mass/Vol] 48.5 ng/mL Normal 30.0-100.0 [facility]; [facility] Work Phone: Comment on above: Vitamin D deficiency has been defined by the [place] of[place]icine and an Endocrine Society practice guideline as alevel of serum 25-OH vitamin D less than 20 ng/mL (1,2).The Endocrine Society went on to further define vitamin Dinsufficiency as a level between 21 and 29 ng/mL (2).1. IOM ([place] of Medicine). 2010. Dietary reference intakes for calcium and D. [place]: The National Academies Press.2. Jenny MF, Ryan ALEJANDRO, [facility] S[facility]SA, et al. Evaluation, treatment, and prevention of vitamin D deficiency: an Endocrine Society clinical practice guideline. JCEM. 2010; 96(7):1911-30. PATIENT WAS FASTINGP ERFORMED BY: CB [facility] Nfhhcj8432 [address]ublin [place] [id number] CBC W/AUTO DIFF WBC (98072)O rdered By: Proctologist on 09-17-2022 Basophils (Bld) [#/Vol] 0.1 10*3/uL Normal 0.0-0.2 [facility]; [facility] Work Phone: Comment on above: PATIENT WAS FASTINGP ERFORMED BY: CB [facility] Ednzok9037 [address]Dublin [place] [id number] Basophils/100 WBC (Bld) 1 % Normal C omprehensive [facility]; [facility] Work Phone: Comment on above: PATIENT WAS FASTINGP ERFORMED BY: CB [facility] Hyspyd7008 [address]Dublin [place] [id number] Eosinophils (Bld) [#/Vol] 0.2 10*3/uL Normal 0.0-0.4 [facility]; [facility] Work Phone: Comment on above: PATIENT WAS FASTINGP ERFORMED BY: CB [facility] Yxrawm9483 [address]Dublin [place] [id number] Eosinophils/100 WBC (Bld) 3 % Normal [facility]; [facility] Work Phone: Comment on above: PATIENT WAS FASTINGP ERFORMED BY: CB [facility] Rvjkpv6991 [address] RoadDublin [place] [id number] Erythrocyte distribution width (RBC) [Ratio] 12.8 % Normal 11.7-15.4 [facility]; [facility] Work Phone: Comment on above: PATIENT WAS FASTINGP ERFORMED BY: CB [facility] Ofwspb4101 [address]Dublin [place] [id number] Hematocrit (Bld) [Volume fraction] 39.8 % Normal 34.0-46.6 [facility]; [facility] Work Phone: Comment on above: PATIENT WAS FASTINGP ERFORMED BY: CHITRA Vitaliy Teozdh8151 [facility] [id number] Hemoglobin (Bld) [Mass/Vol] 13.0 g/dL Normal 11.1-15.9 [facility]; [facility] Work Phone: Comment on above: PATIENT WAS FASTINGP ERFORMED BY: CHITRA [facility] Deluiz5862 [facility] [id number] Immature granulocytes (Bld) [#/Vol] 0.0 10*3/uL Normal 0.0-0.1 [facility]; [facility] Work Phone: Comment on above: PATIENT WAS FASTINGP ERFORMED BY: CHITRA [facility] Vskrea6433 [facility] [id number] Immature granulocytes/100 WBC (Bld) 0 % Normal [facility]; [facility] Work Phone: Comment on above: PATIENT WAS FASTINGP ERFORMED BY: CHITRA Arlynshon Giipui9981 [facility] [id number] Lymphocytes (Bld) [#/Vol] 1.8 10*3/uL Normal 0.7-3.1 [facility]; [facility] Work Phone: Comment on above: PATIENT WAS FASTINGP ERFORMED BY: CHITRA ArlynTina V[place] 9873570 [facility] [id number] Lymphocytes/100 WBC (Bld) 28 % Normal [facility]; [facility] Work Phone: Comment on above: PATIENT WAS FASTINGP ERFORMED BY: CHITRA Arlynshon Crtcjf2246 [facility] [id number] MCH (RBC) [Entitic mass] 28.6 pg Normal 26.6-33.0 [facility]; [facility] Work Phone: Comment on above: PATIENT WAS FASTINGP ERFORMED BY: CHITRA Gooden6370 [address]Dublin [place] [id number] MCHC (RBC) [Mass/Vol] 32.7 g/dL Normal 31.5-35.7 [facility] prehensive Internal Medicine; [facility] Work Phone: Comment on above: PATIENT WAS FASTINGP ERFORMED BY: CHITRA Labshamika FregosoDwouec0816 [address]Dublin [place] [id number] MCV (RBC) [Entitic vol] 88 fL Normal 79-97 C omprehensive [facility]; [facility] Work Phone: Comment on above: PATIENT WAS FASTINGP ERFORMED BY: CHITRA Labshon Ngtsdg4000 [address]Dublin [place] [id number] Monocytes (Bld) [#/Vol] 0.6 10*3/uL Normal 0.1-0.9 [facility]; [facility] Work Phone: Comment on above: PATIENT WAS FASTINGP ERFORMED BY: CHITRA Burks Fwzozk0537 [address]Dublin [place] [id number] Monocytes/100 WBC (Bld) 9 % Normal C [facility]; [facility] Work Phone: Comment on above: PATIENT WAS FASTINGP ERFORMED BY: CHITRA Gooden6370 [address]ublin [place] [id number] Neutrophils (Bld) [#/Vol] 3.8 10*3/uL Normal 1.4-7.0 [facility]; [facility] Work Phone: Comment on above: PATIENT WAS FASTINGP ERFORMED BY: CHITRA Labco Hpopzx2145 [address]Dublin [place] [id number] Neutrophils/100 WBC (Bld) 59 % Normal [facility]; [facility] Work Phone: Comment on above: PATIENT WAS FASTINGP ERFORMED BY: CHITRA Labshamika FregosoQyktxt9758 [address]Dublin [place] [id number] Platelets (Bld) [#/Vol] 378 10*3/uL Normal 150-450 [facility]; [facility] Work Phone: Comment on above: PATIENT WAS FASTINGP ERFORMED BY: CHITRA [facility] Fncsxd4661 [address]Dublin [place] [id number] RBC (Bld) [#/Vol] 4.55 10*6/uL Normal 3.77-5.28 [facility]; [facility] Work Phone: Comment on above: PATIENT WAS FASTINGP ERFORMED BY: CHITRA [facility] Tlosgp5063 [address]Dublin [place] [id number] WBC (Bld) [#/Vol] 6.4 10*3/uL Normal 3.4-10.8 [facility]; [facility] Work Phone: Comment on above: PATIENT WAS FASTINGP ERFORMED BY: CHITRA Labcodavid FregosoHlnfns8913 [address] RoadDublin [place] [id number] LIPID PANEL (67230)Ordered B y: Proctologist on 09-17-2022 Cholesterol [Mass/Vol] 205 mg/dL Abnormal 100-199 [facility]; [facility] Work Phone: Comment on above: PATIENT WAS FASTINGP ERFORMED BY: CHITRA Labcodavid Tbpuyz1517 [address]Dublin [place] [id number] Cholesterol in HDL [Mass/Vol] 66 mg/dL Normal [facility]; [facility] Work Phone: Comment on above: PATIENT WAS FASTINGP ERFORMED BY: CHITRA [facility] Upkjeu6953 [address]Dublin [place] [id number] Triglyceride [Mass/Vol] 148 mg/dL Normal 0-149 C [facility]; [facility] Work Phone: Comment on above: PATIENT WAS FASTINGP ERFORMED BY: CHITRA [facility] Tzgsjv8970 [address]Dublin [place] [id number] LIPID PANEL (93189) 26 mg/dL Normal 5-40 Compr ensive [facility]; [facility] Work Phone: Comment on above: PATIENT WAS FASTINGP ERFORMED BY: CHITRA [facility] Mpxbnm5663 [address]Dublin [place] [id number] LIPID PANEL (97779) 113 mg/dL Abnormal 0-99 [facility]; [facility] Work Phone: Comment on above: PATIENT WAS FASTINGP ERFORMED BY: CHITRA Fregosolin6370 [facility] [id number] LIPID PANEL (69261) 1.7 {ratio} Normal 0.0-3.2 Comp [facility]; [facility] Work Phone: Comment on above: LDL/HDL Ratio Men Wo men 1/2 Avg.Risk 1.0 1.5 Avg.Risk 3.6 3.2 2X Avg.Risk 6.2 5.0 3X Avg.Risk 8.0 6.1 PATIENT WAS FASTINGP ERFORMED BY: CHITRA Fregosolin6370 [facility] [id number] METABOLIC PANEL, COMPREHENSI VE (80804)Ordered By: Proctologist on 09-17-2022 Albumin [Mass/Vol] 4.3 g/dL Normal 3.8-4.8 [facility]; [facility] Work Phone: Comment on above: Please note refere nce interval change PATIENT WAS FASTINGP ERFORMED BY: CHITRA Fregosolin6370 [facility] [id number] Albumin/Globulin [Mass ratio] 1.8 {ratio} Normal 1.2-2.2 [facility]; [facility] Work Phone: Comment on above: PATIENT WAS FASTINGP ERFORMED BY: CHITRA Fregosolin6370 [facility] [id number] ALP [Catalytic activity/Vol] 94 U/L Normal 44-121 [facility]; [facility] Work Phone: Comment on above: PATIENT WAS FASTINGP ERFORMED BY: CHITRA Labshamika FregosoNcxayl[address] [facility] [id number] ALT [Catalytic activity/Vol] 14 U/L Normal 0-32 [facility]; [facility] Work Phone: Comment on above: PATIENT WAS FASTINGP ERFORMED BY: CHITRA Labshamika FregosoSjsmoz1218 [facility] [id number] AST [Catalytic activity/Vol] 17 U/L Normal 0-40 [facility]; [facility] Work Phone: Comment on above: PATIENT WAS FASTINGP ERFORMED BY: CHITRA Gooden6370 [facility] [id number] Bilirubin [Mass/Vol] 0.3 mg/dL Normal 0.0-1.2 [facility] rehensive Internal Medicine; [facility] Work Phone: Comment on above: PATIENT WAS FASTINGP ERFORMED BY: [facility] Xpuqxx7085 [facility] [id number] Calcium [Mass/Vol] 9.7 mg/dL Normal 8.7-10.3 [facility]; [facility] Work Phone: Comment on above: PATIENT WAS FASTINGP ERFORMED BY: [facility] Qblhtd3591 [facility] [id number] Chloride [Moles/Vol] 99 mmol/L Normal 96-106 [facility] rehensive Internal Medicine; [facility] Work Phone: Comment on above: PATIENT WAS FASTINGP ERFORMED BY: [facility]fre[facility] Ibzspw4554 [facility] [id number] CO2 [Moles/Vol] 28 mmol/L Normal 20-29 [facility]; [facility] Work Phone: Comment on above: PATIENT WAS FASTINGP ERFORMED BY: [facility] Tsyenj1108 [facility] [id number] Creatinine [Mass/Vol] 0.80 mg/dL Normal 0.57-1.00 [facility]; [facility] Work Phone: Comment on above: PATIENT WAS FASTINGP ERFORMED BY: [facility] Hfwtka6259 [facility] [id number] GFR/1.73 sq M.predicted among non-blacks MDRD (S/P/Bld) [Vol rate/Area] 79 mL/min/{1.73_m2} Normal Comprehensiv e [facility]; [facility] Work Phone: Comment on above: PATIENT WAS FASTINGP ERFORMED BY: [facility] Ydonwo4998 [address]Dublin [place] [id number] Globulin (S) [Mass/Vol] 2.4 g/dL Normal 1.5-4.5 C omprehensive [facility]; [facility] Work Phone: Comment on above: PATIENT WAS FASTINGP ERFORMED BY: CB [facility] Drdlpo7663 [address]Dublin [place] [id number] Glucose [Mass/Vol] 113 mg/dL Abnormal 70-99 [facility]; [facility] Work Phone: Comment on above: PATIENT WAS FASTINGP ERFORMED BY: CB [facility] Ihtdhe0183 [address] RoadDublin [place] [id number] Potassium [Moles/Vol] 4.9 mmol/L Normal 3.5-5.2 [facility] prehensive Internal Medicine; [facility] Work Phone: Comment on above: PATIENT WAS FASTINGP ERFORMED BY: [facility] Oyirbu9859 [address]Dublin [place] [id number] Protein [Mass/Vol] 6.7 g/dL Normal 6.0-8.5 [facility]; [facility] Work Phone: Comment on above: PATIENT WAS FASTINGP ERFORMED BY: [facility] Jaoavx3139 [address]Dublin [place] [id number] Sodium [Moles/Vol] 139 mmol/L Normal 134-144 [facility]; [facility] Work Phone: Comment on above: PATIENT WAS FASTINGP ERFORMED BY: [facility] Atfioz0511 [address]Dublin [place] [id number] Urea nitrogen [Mass/Vol] 13 mg/dL Normal 8-27 [facility]; [facility] Work Phone: Comment on above: PATIENT WAS FASTINGP ERFORMED BY: CB [facility] Ufdkpp0680 [address]Dublin [place] [id number] Urea nitrogen/Creatinine [Mass ratio] 16 mg/mg Normal 12-28 [facility]; [facility] Work Phone: Comment on above: PATIENT WAS FASTINGP ERFORMED BY: CHITRA Labcodavid rFegosoXhgtsu3223 [address] RoadDublin [place] [id number] MICROALBUMINOrdered By: [employer] Tape Librarian on 09-17-2022 Albumin DL <= 20 mg/L (U) [Mass/Vol] 14.8 ug/mL Normal [facility]; [facility] Work Phone: Comment on above: PATIENT WAS FASTINGP ERFORMED BY: CHITRA [facility] Ppuusm0589 [address]Dublin [place] [id number] Albumin/Creatinine (U) [Mass ratio] 15 {mg/g_creat} Normal 0-29 [facility]; [facility] Work Phone: Comment on above: Normal: 0 - 29 Moder ately increased: 30 - 300 Severely increased: >300 PATIENT WAS FASTINGP ERFORMED BY: CHITRA Labcodavid Zkrehr9021 [address]Dublin [place] [id number] Creatinine (U) [Mass/Vol] 97.5 mg/dL Normal [facility]; [facility] Work Phone: Comment on above: PATIENT WAS FASTINGP ERFORMED BY: CHITRA Labshamika FregosoSrcijc4740 [address] RoadDublin [place] [id number] TSH ([id number])Ordered By: Mis Tape Librarian on 09-17-2022 TSH Qn 2.890 {uIU/mL} Normal 0.450-4.500 Comprehen sive [facility] Medicine; [facility] Work Phone: Comment on above: PATIENT WAS FASTINGP ERFORMED BY: CHITRA Labcodavid Dmrhrr6517 [address]Dublin [place] [id number] URINALYSIS, W/ MICRO (90727) Ordered By: Proctologist on 09-17-2022 Appearance (U) Clear Normal Comprehens estela [facility]; [facility] Work Phone: Comment on above: PATIENT WAS FASTINGP ERFORMED BY: CHITRA Labcodavid Hhuabo2071 [address]Dublin [place] [id number] Bilirubin Ql (U) Negative Normal Comprehe nsive Internal Medicine; [facility] Work Phone: Comment on above: PATIENT WAS FASTINGP ERFORMED BY: CHITRA Gooden6370 [address]Dublin [place] [id number] Color (U) Yellow Normal [facility]; [facility] Work Phone: Comment on above: PATIENT WAS FASTINGP ERFORMED BY: CHITRA Gooden6370 [address] [place] [id number] Glucose Ql (U) Negative Normal Comprehens estela [facility]; [facility] Work Phone: Comment on above: PATIENT WAS FASTINGP ERFORMED BY: CHITRA Gooden6370 [address] [place] [id number] Hemoglobin Ql (U) Negative Normal Compreh ensive [facility]; [facility] Work Phone: Comment on above: PATIENT WAS FASTINGP ERFORMED BY: CHITRA Gooden6370 [address] [place] [id number] Ketones Ql (U) Negative Normal Comprehens estela [facility]; [facility] Work Phone: Comment on above: PATIENT WAS FASTINGP ERFORMED BY: CHITRA Gooden6370 [address] [place] [id number] Leukocyte esterase Test strip Ql (U) 1+ Abnormal [facility]; [facility] Work Phone: Comment on above: PATIENT WAS FASTINGP ERFORMED BY: CHITRA Gooden6370 [address]Dublin [place] [id number] Microscopic observation LM Nom (Urine sed) See below: Normal [facility]; [facility] Work Phone: Comment on above: Microscopic was rikki cated and was performed. PATIENT WAS FASTINGP ERFORMED BY: CHITRA Fregosolin6370 [address]Dublin [place] [id number] Nitrite Ql (U) Negative Normal Comprehens estela [facility]; [facility] Work Phone: Comment on above: PATIENT WAS FASTINGP ERFORMED BY: CHITRA Fregosolin6370 [address]Dublin [place] [id number] pH (U) 7.5 [pH] Normal 5.0-7.5 [facility]; [facility] Work Phone: Comment on above: PATIENT WAS FASTINGP ERFORMED BY: [facility] Tuhfaj[address] [facility] [id number] Protein Ql (U) Negative Normal Comprehens estela [facility]; [facility] Work Phone: Comment on above: PATIENT WAS FASTINGP ERFORMED BY: [facility] Qxmluy2501 [facility] [id number] Specific gravity (U) [Rel density] 1.016 1 Normal 1.005-1.030 [facility]; [facility] Work Phone: Comment on above: PATIENT WAS FASTINGP ERFORMED BY: [facility] Sjywiz[address] [facility]UNC [facility] [id number] Urobilinogen (U) [Mass/Vol] 0.2 mg/dL Normal 0.2-1.0 [facility]; [facility] Work Phone: Comment on above: PATIENT WAS FASTINGP ERFORMED BY: [facility] Uytlpd9710 [facility] [id number] Blood Glucose , Office (7096 2)Ordered By: Mick Das on 06-18-2022 Glucose Glucometer (BldC) [Moles/Vol] 140 1 Normal [facility]; [facility] Work Phone: HgA1C , Office ([phone])Ordere d By: Mick Das on 06-18-2022 HbA1c (Bld) [Mass fraction] 6.2 % Normal 4.6 - 7.1 [facility]; [facility] Work Phone: Blood Glucose , Office ([phone])Ordered By: Mick Das on 03-19-2022 Glucose Glucometer (BldC) [Moles/Vol] 111 1 Normal [facility]; [facility] Work Phone: HgA1C , Office (51036)Ordere d By: Mick Das on 03-19-2022 HbA1c (Bld) [Mass fraction] 6.0 % Normal 4.6 - 7.1 [facility]; [facility] Work Phone: CALCIFEDIOL ([phone])Ordered B y: Proctologist on 03-11-2022 25-hydroxyvitamin D [Mass/Vol] 51.9 ng/mL Normal 30.0-100.0 [facility]; [facility] Work Phone: Comment on above: Vitamin D deficiency has been defined by the [place] of[place]icine and an Endocrine Society practice guideline as alevel of serum 25-OH vitamin D less than 20 ng/mL (1,2).The Endocrine Society went on to further define vitamin Dinsufficiency as a level between 21 and 29 ng/mL (2).1. IOM ([place] of [employer]). 2010. Dietary reference intakes for calcium and D. [place]: The National Academies Press.2. Jenny MF, Ryan ALEJANDRO, [facility], et al. Evaluation, treatment, and prevention of vitamin D deficiency: an Endocrine Society clinical practice guideline. JCEM. 2010; 96(7):1911-30. PATIENT WAS FASTINGP ERFORMED BY: Zetera6370 [employer] [place] [id number] CBC W/AUTO DIFF WBC (93644)O rdered By: Proctologist on 03-11-2022 Basophils (Bld) [#/Vol] 0.0 10*3/uL Normal 0.0-0.2 [facility]; [facility] Work Phone: Comment on above: PATIENT WAS FASTINGP ERFORMED BY: [employer]ast [facility] Fowzez8160 [facility] [id number] Basophils/100 WBC (Bld) 1 % Normal C omprehensive Internal Medicine; [facility] Work Phone: Comment on above: PATIENT WAS FASTINGP ERFORMED BY: Zetera6370 [employer]3in [place] [id number] Eosinophils (Bld) [#/Vol] 0.2 10*3/uL Normal 0.0-0.4 [facility]; [facility] Work Phone: Comment on above: PATIENT WAS FASTINGP ERFORMED BY: [facility] Edffoe8883 [address] RoadDublin [place] [id number] Eosinophils/100 WBC (Bld) 3 % Normal [facility]; [facility] Work Phone: Comment on above: PATIENT WAS FASTINGP ERFORMED BY: [facility] Gecpnc2664 [address] Roadblin [place] [id number] Erythrocyte distribution width (RBC) [Ratio] 12.5 % Normal 11.7-15.4 [facility]; [facility] Work Phone: Comment on above: PATIENT WAS FASTINGP ERFORMED BY: [facility] Vttayx8101 [address] Roadblin [place] [id number] Hematocrit (Bld) [Volume fraction] 41.8 % Normal 34.0-46.6 [facility]; [facility] Work Phone: Comment on above: PATIENT WAS FASTINGP ERFORMED BY: [facility] Rjaocw6555 Tamayo RoadEcu Health Duplin Hospitalin [place] [id number] Hemoglobin (Bld) [Mass/Vol] 13.7 g/dL Normal 11.1-15.9 [facility]; [facility] Work Phone: Comment on above: PATIENT WAS FASTINGP ERFORMED BY: [facility] Bxplys7343 Tam[address]o Roadblin [place] [id number] Immature granulocytes (Bld) [#/Vol] 0.0 10*3/uL Normal 0.0-0.1 [facility]; [facility] Work Phone: Comment on above: PATIENT WAS FASTINGP ERFORMED BY: [facility] Xsqiwu9169 [address]o RoadDublin [place] [id number] Immature granulocytes/100 WBC (Bld) 0 % Normal [facility]; [facility] Work Phone: Comment on above: PATIENT WAS FASTINGP ERFORMED BY: [facility] Iiebib5176 [address] RoadDublin [place] [id number] Lymphocytes (Bld) [#/Vol] 1.5 10*3/uL Normal 0.7-3.1 [facility]; [facility] Work Phone: Comment on above: PATIENT WAS FASTINGP ERFORMED BY: CB [facility] Roqoya3153 [address]o RoadDublin [place] [id number] Lymphocytes/100 WBC (Bld) 23 % Normal [facility]; [facility] Work Phone: Comment on above: PATIENT WAS FASTINGP ERFORMED BY: CB [facility] Clpqqc1512 [address] RoadDublin [place] [id number] MCH (RBC) [Entitic mass] 29.3 pg Normal 26.6-33.0 [facility]; [facility] Work Phone: Comment on above: PATIENT WAS FASTINGP ERFORMED BY: CB [facility] Vloaem6644 [address] RoadDublin [place] [id number] MCHC (RBC) [Mass/Vol] 32.8 g/dL Normal 31.5-35.7 [facility] prehensive Internal Medicine; [facility] Work Phone: Comment on above: PATIENT WAS FASTINGP ERFORMED BY: CB [facility] Wcvvyz7865 [address] RoadDublin [place] [id number] MCV (RBC) [Entitic vol] 90 fL Normal 79-97 C omprehensive Internal Medicine; [facility] Work Phone: Comment on above: PATIENT WAS FASTINGP ERFORMED BY: [facility] Gvvisc4916 [address] RoadDublin [place] [id number] Monocytes (Bld) [#/Vol] 0.4 10*3/uL Normal 0.1-0.9 [facility]; [facility] Work Phone: Comment on above: PATIENT WAS FASTINGP ERFORMED BY: CB [facility] Ngpiur7764 [address] RoadDublin [place] [id number] Monocytes/100 WBC (Bld) 7 % Normal C omprehensive [facility]; [facility] Work Phone: Comment on above: PATIENT WAS FASTINGP ERFORMED BY: CB [facility] Xzdghi3965 [address] RoadDublin [place] [id number] Neutrophils (Bld) [#/Vol] 4.4 10*3/uL Normal 1.4-7.0 [facility]; [facility] Work Phone: Comment on above: PATIENT WAS FASTINGP ERFORMED BY: CHITRA Fregosolin6370 [address] RoadDublin [place] [id number] Neutrophils/100 WBC (Bld) 66 % Normal [facility]; [facility] Work Phone: Comment on above: PATIENT WAS FASTINGP ERFORMED BY: CHITRA Fregosolin6370 [address] RoadDublin [place] [id number] Platelets (Bld) [#/Vol] 338 10*3/uL Normal 150-450 [facility]; [facility] Work Phone: Comment on above: PATIENT WAS FASTINGP ERFORMED BY: CHITRA Gooden6370 [address] RoadDublin [place] [id number] RBC (Bld) [#/Vol] 4.67 10*6/uL Normal 3.77-5.28 [facility]; [facility] Work Phone: Comment on above: PATIENT WAS FASTINGP ERFORMED BY: CHITRA Fregosolin6370 [address] RoadDublin [place] [id number] WBC (Bld) [#/Vol] 6.5 10*3/uL Normal 3.4-10.8 [facility] Internal [facility]; [facility] Work Phone: Comment on above: PATIENT WAS FASTINGP ERFORMED BY: CHITRA Fregosolin6370 [address] RoadDublin [place] [id number] LIPID PANEL (96805)Ordered B y: Proctologist on 03-11-2022 Cholesterol [Mass/Vol] 180 mg/dL Normal 100-199 [facility]; [facility] Work Phone: Comment on above: PATIENT WAS FASTINGP ERFORMED BY: CHITRA Labshamika FregosoCsxprg2324 [address] RoadDublin [place] [id number] Cholesterol in HDL [Mass/Vol] 71 mg/dL Normal [facility]; [facility] Work Phone: Comment on above: PATIENT WAS FASTINGP ERFORMED BY: CHITRA Labshamika FregosoOzexif5202 [address] RoadDublin [place] [id number] Triglyceride [Mass/Vol] 82 mg/dL Normal 0-149 [facility]; [facility] Work Phone: Comment on above: PATIENT WAS FASTINGP ERFORMED BY: CHITRA Fregosolin6370 [facility] [id number] LIPID PANEL (97895) 15 mg/dL Normal 5-40 Compr ensive Internal Medicine; [facility] Work Phone: Comment on above: PATIENT WAS FASTINGP ERFORMED BY: CHITRA Labshamika FregosoZnxidr6607 [facility] [id number] LIPID PANEL (50235) 94 mg/dL Normal 0-99 Compr ensive Internal Medicine; [facility] Work Phone: Comment on above: PATIENT WAS FASTINGP ERFORMED BY: CHITRA Fregosolin6370 [facility] [id number] LIPID PANEL (30077) 1.3 {ratio} Normal 0.0-3.2 Comp [facility]; [facility] Work Phone: Comment on above: LDL/HDL Ratio Men Wo men 1/2 Avg.Risk 1.0 1.5 Avg.Risk 3.6 3.2 2X Avg.Risk 6.2 5.0 3X Avg.Risk 8.0 6.1 PATIENT WAS FASTINGP ERFORMED BY: CHITRA Fregosolin6370 [facility] [id number] METABOLIC PANEL, COMPREHENSI VE (97047)Ordered By: Proctologist on 03-11-2022 Albumin [Mass/Vol] 4.5 g/dL Normal 3.8-4.8 [facility] Internal Medicine; [facility] Work Phone: Comment on above: PATIENT WAS FASTINGP ERFORMED BY: CHITRA Labshamika FregosoVmxiar6089 [facility] [id number] Albumin/Globulin [Mass ratio] 2.0 {ratio} Normal 1.2-2.2 [facility]; [facility] Work Phone: Comment on above: PATIENT WAS FASTINGP ERFORMED BY: CHITRA Fregosolin6370 [address] RoadDublin [place] [id number] ALP [Catalytic activity/Vol] 94 U/L Normal 44-121 [facility]; [facility] Work Phone: Comment on above: PATIENT WAS FASTINGP ERFORMED BY: CB [facility] Xvfzrr3267 [address] RoadDublin [place] [id number] ALT [Catalytic activity/Vol] 16 U/L Normal 0-32 [facility]; [facility] Work Phone: Comment on above: PATIENT WAS FASTINGP ERFORMED BY: [facility] Puwals0961 [address] RoadDublin [place] [id number] AST [Catalytic activity/Vol] 16 U/L Normal 0-40 [facility]; [facility] Work Phone: Comment on above: PATIENT WAS FASTINGP ERFORMED BY: [facility] Qafpsy3040 [address] RoadDublin [place] [id number] Bilirubin [Mass/Vol] 0.3 mg/dL Normal 0.0-1.2 Comp rehensive Internal Medicine; [facility] Work Phone: Comment on above: PATIENT WAS FASTINGP ERFORMED BY: [facility] Znzhrz2312 [address] RoadDublin [place] [id number] Calcium [Mass/Vol] 9.3 mg/dL Normal 8.7-10.3 [facility] Internal Medicine; [facility] Work Phone: Comment on above: PATIENT WAS FASTINGP ERFORMED BY: [facility] Moynmz6830 [address] RoadDublin [place] [id number] Chloride [Moles/Vol] 101 mmol/L Normal 96-106 Comp rehensive Internal Medicine; [facility] Work Phone: Comment on above: PATIENT WAS FASTINGP ERFORMED BY: CB [facility] Yespvk6213 [address] RoadDublin [place] [id number] CO2 [Moles/Vol] 25 mmol/L Normal 20-29 [facility]; [facility] Work Phone: Comment on above: PATIENT WAS FASTINGP ERFORMED BY: [facility] Infela3510 [address] RoadDublin [place] [id number] Creatinine [Mass/Vol] 0.81 mg/dL Normal 0.57-1.00 [facility] prehensive Internal Medicine; [facility] Work Phone: Comment on above: PATIENT WAS FASTINGP ERFORMED BY: [facility] Vkysjy3098 [address] [facility]bl[facility] [place] [id number] GFR/1.73 sq M.predicted among non-blacks MDRD (S/P/Bld) [Vol rate/Area] 78 mL/min/{1.73_m2} Normal Comprehensiv e Internal Medicine; [facility] Work Phone: Comment on above: PATIENT WAS FASTINGP ERFORMED BY: [facility] Camlfn5627 [address] [facility] [id number] Globulin (S) [Mass/Vol] 2.2 g/dL Normal 1.5-4.5 [facility]ensive [facility]; [facility] Work Phone: Comment on above: PATIENT WAS FASTINGP ERFORMED BY: [facility] Wuhxuf0647 [address] [facility]in [place] [id number] Glucose [Mass/Vol] 98 mg/dL Normal 70-99 [facility]; [facility] Work Phone: Comment on above: PATIENT WAS FASTINGP ERFORMED BY: [facility] Qiwczm8692 [address] [facility]in [place] [id number] Potassium [Moles/Vol] 4.2 mmol/L Normal 3.5-5.2 [facility] prehensive Internal Medicine; [facility] Work Phone: Comment on above: PATIENT WAS FASTINGP ERFORMED BY: [facility] Osfjkg0460 [address] [facility]in [place] [id number] Protein [Mass/Vol] 6.7 g/dL Normal 6.0-8.5 [facility] Internal [facility]; [facility] Work Phone: Comment on above: PATIENT WAS FASTINGP ERFORMED BY: [facility] Wombgm2731 [address] [facility]bl[facility] [place] [id number] Sodium [Moles/Vol] 142 mmol/L Normal 134-144 [facility] Internal [facility]; [facility] Work Phone: Comment on above: PATIENT WAS FASTINGP ERFORMED BY: CHITRA [facility] Nmgquh4609 [address] [facility] Medicalblin [place] [id number] Urea nitrogen [Mass/Vol] 14 mg/dL Normal 8-27 [facility]; [facility] Work Phone: Comment on above: PATIENT WAS FASTINGP ERFORMED BY: CB [facility] Udbvwj3994 Tamayo RoadEcu Health Duplin Hospitalin [place] [id number] Urea nitrogen/Creatinine [Mass ratio] 17 mg/mg Normal 12-28 [facility]; [facility] Work Phone: Comment on above: PATIENT WAS FASTINGP ERFORMED BY: CHITRA [facility] Aotsdj6314 [address] [facility] [id number] MICROALBUMINOrdered By: [employer] em Tape Librarian on 03-11-2022 Albumin DL <= 20 mg/L (U) [Mass/Vol] 7.9 ug/mL Normal [facility]; [facility] Work Phone: Comment on above: PATIENT WAS FASTINGP ERFORMED BY: CHITRA [facility] Aykmhj8375 [address] [facility]in [place] [id number] Albumin/Creatinine (U) [Mass ratio] 8 {mg/g_creat} Normal 0-29 [facility]; [facility] Work Phone: Comment on above: Normal: 0 - 29 Moder ately increased: 30 - 300 Severely increased: >300 PATIENT WAS FASTINGP ERFORMED BY: CB [facility] Szsagt9043 [address] [facility]in [place] [id number] Creatinine (U) [Mass/Vol] 98.4 mg/dL Normal [facility]; [facility] Work Phone: Comment on above: PATIENT WAS FASTINGP ERFORMED BY: CHITRA [facility] Kumvys9705 [address] [facility]bl[facility] [place] [id number] TSH ([id number])Ordered By: MNG International Investmentse m Tape Librarian on 03-11-2022 TSH Qn 2.970 {uIU/mL} Normal 0.450-4.500 Comprehen sive Internal Medicine; [facility] Work Phone: Comment on above: PATIENT WAS FASTINGP ERFORMED BY: CHITRA Gooden[address] [facility]bl[facility] [place] [id number] URINALYSIS, W/ MICRO ([id number]) Ordered By: Proctologist on 03-11-2022 Appearance (U) Cloudy Abnormal Comprehens estela Internal Medicine; [facility] Work Phone: Comment on above: PATIENT WAS FASTINGP ERFORMED BY: CHITRA Gooden[address]370 [address] [facility]in [place] [id number] Bilirubin Ql (U) Negative Normal Comprehe nsive Internal Medicine; [facility] Work Phone: Comment on above: PATIENT WAS FASTINGP ERFORMED BY: CHITRA Fregosolin6370 [address] [facility] [id number] Color (U) Yellow Normal [facility]; [facility] Work Phone: Comment on above: PATIENT WAS FASTINGP ERFORMED BY: CHITRA Fregosolin6370 [address] [facility] [id number] Glucose Ql (U) Negative Normal Comprehens estela Internal Medicine; [facility] Work Phone: Comment on above: PATIENT WAS FASTINGP ERFORMED BY: CHITRA Fregosolin6370 [address] [facility] [id number] Hemoglobin Ql (U) Negative Normal Compreh ensive Internal Medicine; [facility] Work Phone: Comment on above: PATIENT WAS FASTINGP ERFORMED BY: CHITRA Gooden[address]370 [address] [facility] [id number] Ketones Ql (U) Negative Normal Comprehens estela Internal Medicine; [facility] Work Phone: Comment on above: PATIENT WAS FASTINGP ERFORMED BY: CHITRA Fregosolin[address]370 [address] [facility] [id number] Leukocyte esterase Test strip Ql (U) 1+ Abnormal [facility]; [facility] Work Phone: Comment on above: PATIENT WAS FASTINGP ERFORMED BY: CHITRA Fregosolin[address]370 [address] [facility] [id number] Microscopic observation LM Nom (Urine sed) See below: Normal [facility]; [facility] Work Phone: Comment on above: Microscopic was rikki cated and was performed. PATIENT WAS FASTINGP ERFORMED BY: [facility] Fpecdc1023 [address] RoadDublin [place] [id number] Nitrite Ql (U) Negative Normal Comprehens estela Internal Medicine; [facility] Work Phone: Comment on above: PATIENT WAS FASTINGP ERFORMED BY: [facility] Yxcutm6726 [address] [facility]in [place] [id number] pH (U) 6.0 [pH] Normal 5.0-7.5 [facility]; [facility] Work Phone: Comment on above: PATIENT WAS FASTINGP ERFORMED BY: [facility] Lprdxe9928 [address] [facility] [place] [id number] Protein Ql (U) Negative Normal Comprehens estela Internal Medicine; [facility] Work Phone: Comment on above: PATIENT WAS FASTINGP ERFORMED BY: [facility] Lhsxxg3050 [facility] [place] [id number] Specific gravity (U) [Rel density] 1.019 1 Normal 1.005-1.030 [facility]; [facility] Work Phone: Comment on above: PATIENT WAS FASTINGP ERFORMED BY: [facility] Bvbtwk6559 [address] [facility] [id number] Urobilinogen (U) [Mass/Vol] 0.2 mg/dL Normal 0.2-1.0 [facility]; [facility] Work Phone: Comment on above: PATIENT WAS FASTINGP ERFORMED BY: [facility] Uocxmx5334 [address] [facility] [id number] Blood Glucose , Office ([phone])Ordered By: Mick Das on 12-11-2021 Glucose Glucometer (BldC) [Moles/Vol] 115 1 Normal [facility]; [facility] Work Phone: HgA1C , Office ([phone])Ordere d By: Mick Das on 12-11-2021 HbA1c (Bld) [Mass fraction] 6.1 % Normal 4.6 - 7.1 [facility]; [facility] Work Phone: Blood Glucose , Office ([phone])Ordered By: Anaya Orlando on 09-05-2021 Glucose Glucometer (BldC) [Moles/Vol] 125 1 Normal [facility]; [facility] Work Phone: HgA1C , Office ([phone])Ordere d By: Anaya Orlando on 09-05-2021 HbA1c (Bld) [Mass fraction] 6.0 % Normal 4.6 - 7.1 [facility]; [facility] Work Phone: CALCIFIDIOL ([id number]) VIT D 25 Ordered By: Proctologist on 08-29-2021 25-hydroxyvitamin D [Mass/Vol] 44.4 ng/mL Normal 30.0-100.0 [facility]; [facility] Work Phone: Comment on above: Vitamin D deficiency has been defined by the [place] of[place]icine and an Endocrine Society practice guideline as alevel of serum 25-OH vitamin D less than 20 ng/mL (1,2).The Endocrine Society went on to further define vitamin Dinsufficiency as a level between 21 and 29 ng/mL (2).1. IOM ([place] of [employer]). 2010. Dietary reference intakes for calcium and D. [place]: The National Academies Press.2. Jenny MF, Ryan ALEJANDRO, [facility], et al. Evaluation, treatment, and prevention of vitamin D deficiency: an Endocrine Society clinical practice guideline. JCEM. 2010; 96(7):1911-30. PATIENT WAS FASTINGP ERFORMED BY: LabcoRunnells Specialized HospitalIpvqxx5176 [facility] [id number] CBC W/AUTO DIFF WBC ([id number])O rdered By: Proctologist on 08-29-2021 Basophils (Bld) [#/Vol] 0.0 10*3/uL Normal 0.0-0.2 [facility]; [facility] Work Phone: Comment on above: PATIENT WAS FASTINGP ERFORMED BY: CB [facility] Pgstpk8604 [address] RoadDublin [place] [id number] Basophils/100 WBC (Bld) 0 % Normal C omprehensive Internal Medicine; [facility] Work Phone: Comment on above: PATIENT WAS FASTINGP ERFORMED BY: CB [facility] Rqzqqf5028 [address] RoadDublin [place] [id number] Eosinophils (Bld) [#/Vol] 0.2 10*3/uL Normal 0.0-0.4 [facility]; [facility] Work Phone: Comment on above: PATIENT WAS FASTINGP ERFORMED BY: CB [facility] Leguiw8768 [address] RoadDublin [place] [id number] Eosinophils/100 WBC (Bld) 3 % Normal [facility]; [facility] Work Phone: Comment on above: PATIENT WAS FASTINGP ERFORMED BY: [facility] Ljgosy4670 [address] RoadDublin [place] [id number] Erythrocyte distribution width (RBC) [Ratio] 12.4 % Normal 11.7-15.4 [facility]; [facility] Work Phone: Comment on above: PATIENT WAS FASTINGP ERFORMED BY: [facility] Ghxnuo1197 [address] RoadDublin [place] [id number] Hematocrit (Bld) [Volume fraction] 41.6 % Normal 34.0-46.6 [facility]; [facility] Work Phone: Comment on above: PATIENT WAS FASTINGP ERFORMED BY: CB [facility] Rgilhl2076 [address] RoadDublin [place] [id number] Hemoglobin (Bld) [Mass/Vol] 13.5 g/dL Normal 11.1-15.9 [facility]; [facility] Work Phone: Comment on above: PATIENT WAS FASTINGP ERFORMED BY: CB [facility] Oiwhgn7293 [address] RoadDublin [place] [id number] Immature granulocytes (Bld) [#/Vol] 0.0 10*3/uL Normal 0.0-0.1 [facility]; [facility] Work Phone: Comment on above: PATIENT WAS FASTINGP ERFORMED BY: [facility] Awzeea0232 [address] [facility]in [place] [id number] Immature granulocytes/100 WBC (Bld) 0 % Normal [facility]; [facility] Work Phone: Comment on above: PATIENT WAS FASTINGP ERFORMED BY: LabcoRunnells Specialized HospitalKiardu4843 [address] [facility]in [place] [id number] Lymphocytes (Bld) [#/Vol] 1.9 10*3/uL Normal 0.7-3.1 [facility]; [facility] Work Phone: Comment on above: PATIENT WAS FASTINGP ERFORMED BY: LabcoRunnells Specialized HospitalVrhiln2520 [address] [facility] [id number] Lymphocytes/100 WBC (Bld) 25 % Normal [facility]; [facility] Work Phone: Comment on above: PATIENT WAS FASTINGP ERFORMED BY: [facility]Har[facility]6370 [facility] [id number] MCH (RBC) [Entitic mass] 29.5 pg Normal 26.6-33.0 [facility]; [facility] Work Phone: Comment on above: PATIENT WAS FASTINGP ERFORMED BY: LabHarper [facility] Hospital6370 [address] [facility] [id number] MCHC (RBC) [Mass/Vol] 32.5 g/dL Normal 31.5-35.7 [facility]; [facility] Work Phone: Comment on above: PATIENT WAS FASTINGP ERFORMED BY: [facility] Atzvyu7551 [address] [facility]in [place] [id number] MCV (RBC) [Entitic vol] 91 fL Normal 79-97 C omprehensive Internal Medicine; [facility] Work Phone: Comment on above: PATIENT WAS FASTINGP ERFORMED BY: [facility] Khcidu1557 [address] [facility]in [place] [id number] Monocytes (Bld) [#/Vol] 0.6 10*3/uL Normal 0.1-0.9 [facility]; [facility] Work Phone: Comment on above: PATIENT WAS FASTINGP ERFORMED BY: CB [facility] Sjfgsl1044 [address] RoadDublin [place] [id number] Monocytes/100 WBC (Bld) 8 % Normal C omprehensive Internal Medicine; [facility] Work Phone: Comment on above: PATIENT WAS FASTINGP ERFORMED BY: CB [facility] Tbryzv4015 [address] RoadDublin [place] [id number] Neutrophils (Bld) [#/Vol] 4.7 10*3/uL Normal 1.4-7.0 [facility]; [facility] Work Phone: Comment on above: PATIENT WAS FASTINGP ERFORMED BY: CB [facility] Hetgye6405 [address] RoadDublin [place] [id number] Neutrophils/100 WBC (Bld) 64 % Normal [facility]; [facility] Work Phone: Comment on above: PATIENT WAS FASTINGP ERFORMED BY: CB [facility] Tdwazl8822 [address] RoadDublin [place] [id number] Platelets (Bld) [#/Vol] 318 10*3/uL Normal 150-450 [facility]; [facility] Work Phone: Comment on above: PATIENT WAS FASTINGP ERFORMED BY: CB [facility] Kekgrf2932 [address] RoadDublin [place] [id number] RBC (Bld) [#/Vol] 4.58 10*6/uL Normal 3.77-5.28 [facility]; [facility] Work Phone: Comment on above: PATIENT WAS FASTINGP ERFORMED BY: CB [facility] Vhcbmw0373 [address] RoadDublin [place] [id number] WBC (Bld) [#/Vol] 7.4 10*3/uL Normal 3.4-10.8 Compre [facility] Internal Medicine; [facility] Work Phone: Comment on above: PATIENT WAS FASTINGP ERFORMED BY: CB [facility] Venfth6216 [address] RoadDublin [place] [id number] LIPID PANEL (73707)Ordered B y: Proctologist on 08-29-2021 Cholesterol [Mass/Vol] 189 mg/dL Normal 100-199 Co [facility] hospitalehensive [facility]; [facility] Work Phone: Comment on above: PATIENT WAS FASTINGP ERFORMED BY: CHITRA Labcodavid Oofeua2356 [address] RoadDublin [place] [id number] Cholesterol in HDL [Mass/Vol] 67 mg/dL Normal [facility]; [facility] Work Phone: Comment on above: PATIENT WAS FASTINGP ERFORMED BY: CHITRA [facility] Hykdss2085 [address] RoadDublin [place] [id number] Triglyceride [Mass/Vol] 136 mg/dL Normal 0-149 C omprehensive Internal Medicine; [facility] Work Phone: Comment on above: PATIENT WAS FASTINGP ERFORMED BY: CHITRA Labcodavid FregosoLrwfui0295 [address] RoadDublin [place] [id number] LIPID PANEL (32159) 24 mg/dL Normal 5-40 Compr ensive Internal Medicine; [facility] Work Phone: Comment on above: PATIENT WAS FASTINGP ERFORMED BY: CHITRA [facility] Njlgis4154 [address] RoadDublin [place] [id number] LIPID PANEL (56419) 98 mg/dL Normal 0-99 Compr ensive Internal Medicine; [facility] Work Phone: Comment on above: PATIENT WAS FASTINGP ERFORMED BY: CHITRA [facility] Vminmg8521 [address] RoadDublin [place] [id number] LIPID PANEL (84654) 1.5 {ratio} Normal 0.0-3.2 Comp [facility]; [facility] Work Phone: Comment on above: LDL/HDL Ratio Men Wo men 1/2 Avg.Risk 1.0 1.5 Avg.Risk 3.6 3.2 2X Avg.Risk 6.2 5.0 3X Avg.Risk 8.0 6.1 PATIENT WAS FASTINGP ERFORMED BY: CHITRA [facility] Ruydtl9184 [address] RoadDublin [place] [id number] METABOLIC PANEL, COMPREHENSI VE (38057)Ordered By: Proctologist on 08-29-2021 Albumin [Mass/Vol] 4.4 g/dL Normal 3.8-4.8 [facility] Internal Medicine; [facility] Work Phone: Comment on above: PATIENT WAS FASTINGP ERFORMED BY: CHITRA [facility] Qswbqh4453 [address]o RoadDublin [place] [id number] Albumin/Globulin [Mass ratio] 1.7 {ratio} Normal 1.2-2.2 [facility]; [facility] Work Phone: Comment on above: PATIENT WAS FASTINGP ERFORMED BY: CHITRA [facility] Qcijew5434 [address]o RoadDublin [place] [id number] ALP [Catalytic activity/Vol] 87 U/L Normal 44-121 [facility]; [facility] Work Phone: Comment on above: PATIENT WAS FASTINGP ERFORMED BY: CHITRA Lab[facility] Pycscq0768 [address] RoadDublin [place] [id number] ALT [Catalytic activity/Vol] 16 U/L Normal 0-32 [facility]; [facility] Work Phone: Comment on above: PATIENT WAS FASTINGP ERFORMED BY: CHITRA [facility] Lxlaag9100 [address] RoadDublin [place] [id number] AST [Catalytic activity/Vol] 17 U/L Normal 0-40 [facility]; [facility] Work Phone: Comment on above: PATIENT WAS FASTINGP ERFORMED BY: CHITRA [facility] Vjbquk1672 [address] RoadDublin [place] [id number] Bilirubin [Mass/Vol] 0.4 mg/dL Normal 0.0-1.2 [facility]; [facility] Work Phone: Comment on above: PATIENT WAS FASTINGP ERFORMED BY: CB [facility] Qixool9078 [address] RoadDublin [place] [id number] Calcium [Mass/Vol] 9.8 mg/dL Normal 8.7-10.3 [facility]; [facility] Work Phone: Comment on above: PATIENT WAS FASTINGP ERFORMED BY: CHITRA [facility] Oybktz5110 [address] RoadDublin [place] [id number] Chloride [Moles/Vol] 102 mmol/L Normal 96-106 Comp rehensive Internal Medicine; [facility] Work Phone: Comment on above: PATIENT WAS FASTINGP ERFORMED BY: CHITRA [facility] Ijmdry1779 [address] RoadDublin [place] [id number] CO2 [Moles/Vol] 25 mmol/L Normal 20-29 Comprehen [facility]; [facility] Work Phone: Comment on above: PATIENT WAS FASTINGP ERFORMED BY: CB [facility] Ycansd1714 [address] RoadDublin [place] [id number] Creatinine [Mass/Vol] 0.83 mg/dL Normal 0.57-1.00 Com [facility]; [facility] Work Phone: Comment on above: PATIENT WAS FASTINGP ERFORMED BY: CHITRA [facility] Aovfxa4160 [address] RoadDublin [place] [id number] GFR/1.73 sq M.predicted among non-blacks MDRD (S/P/Bld) [Vol rate/Area] 76 mL/min/{1.73_m2} Normal Comprehensiv e Internal Medicine; [facility] Work Phone: Comment on above: PATIENT WAS FASTINGP ERFORMED BY: CHITRA [facility] Ahmrqi3396 [address] RoadDublin [place] [id number] Globulin (S) [Mass/Vol] 2.6 g/dL Normal 1.5-4.5 C ompselect [facility]; [facility] Work Phone: Comment on above: PATIENT WAS FASTINGP ERFORMED BY: CB [facility] Tdzvfa1937 [address] RoadDublin [place] [id number] Glucose [Mass/Vol] 108 mg/dL Abnormal 65-99 Compre [facility] Internal Medicine; [facility] Work Phone: Comment on above: PATIENT WAS FASTINGP ERFORMED BY: CB [facility] Tqxtml5642 [address] RoadDublin [place] [id number] Potassium [Moles/Vol] 4.2 mmol/L Normal 3.5-5.2 [facility] prehensive Internal Medicine; [facility] Work Phone: Comment on above: PATIENT WAS FASTINGP ERFORMED BY: CHITRA [facility] FregosoIzzsbs7282 [address] RoadDublin [place] [id number] Protein [Mass/Vol] 7.0 g/dL Normal 6.0-8.5 [facility] Internal Medicine; [facility] Work Phone: Comment on above: PATIENT WAS FASTINGP ERFORMED BY: CB [facility] Mvpnpv5651 [address] RoadDublin [place] [id number] Sodium [Moles/Vol] 142 mmol/L Normal 134-144 [facility] Internal Medicine; [facility] Work Phone: Comment on above: PATIENT WAS FASTINGP ERFORMED BY: CHITRA [facility] Eivdca0759 [address] RoadDublin [place] [id number] Urea nitrogen [Mass/Vol] 11 mg/dL Normal 8-27 [facility]; [facility] Work Phone: Comment on above: PATIENT WAS FASTINGP ERFORMED BY: CHITRA [facility] Sgiumb1570 [address] RoadDuin [place] [id number] Urea nitrogen/Creatinine [Mass ratio] 13 mg/mg Normal 12-28 [facility]; [facility] Work Phone: Comment on above: PATIENT WAS FASTINGP ERFORMED BY: CHITRA [facility] Rmnbza4282 [address] [facility]in [place] [id number] MICROALBUMINOrdered By: Syst em Tape Librarian on 08-29-2021 Albumin DL <= 20 mg/L (U) [Mass/Vol] 5.4 ug/mL Normal [facility]; [facility] Work Phone: Comment on above: PATIENT WAS FASTINGP ERFORMED BY: [facility] Ujxsgn7634 [address]blin [place] [id number] Albumin/Creatinine (U) [Mass ratio] 9 {mg/g_creat} Normal 0-29 [facility]; [facility] Work Phone: Comment on above: Normal: 0 - 29 Moder ately increased: 30 - 300 Severely increased: >300 PATIENT WAS FASTINGP ERFORMED BY: CHITRA [facility] Llzcnk9883 [address] RoadDublin [place] [id number] Creatinine (U) [Mass/Vol] 57.0 mg/dL Normal [facility]; [facility] Work Phone: Comment on above: PATIENT WAS FASTINGP ERFORMED BY: CHITRA Labshamika FregosoZstevd4503 [address] RoadDublin [place] [id number] TSH ([id number])Ordered By: MNG International Investmentse m Tape Librarian on 08-29-2021 TSH Qn 1.500 {uIU/mL} Normal 0.450-4.500 Comprehen sive Internal Medicine; [facility] Work Phone: Comment on above: PATIENT WAS FASTINGP ERFORMED BY: CHITRA Lab[facility] FregosoAfqnuc6036 [address] RoadDublin [place] [id number] URINALYSIS, W/ MICRO ([id number]) Ordered By: Proctologist on 08-29-2021 Appearance (U) Clear Normal Comprehens estela Internal Medicine; [facility] Work Phone: Comment on above: PATIENT WAS FASTINGP ERFORMED BY: CHITRA Lab[facility] FregosoAsjqrq0038 [address] RoadDublin [place] [id number] Bilirubin Ql (U) Negative Normal Comprehe nsive Internal Medicine; [facility] Work Phone: Comment on above: PATIENT WAS FASTINGP ERFORMED BY: CHITRA Lab[facility] FregosoWuoqnf7235 [address] RoadDublin [place] [id number] Color (U) Yellow Normal [facility]; [facility] Work Phone: Comment on above: PATIENT WAS FASTINGP ERFORMED BY: CHITRA [facility] Hsxtua4912 [address] RoadDublin [place] [id number] Glucose Ql (U) Negative Normal Comprehens estela Internal Medicine; [facility] Work Phone: Comment on above: PATIENT WAS FASTINGP ERFORMED BY: CHITRA [facility] Lksysg3569 [address] RoadDublin [place] [id number] Hemoglobin Ql (U) Negative Normal Compreh ensive Internal Medicine; [facility] Work Phone: Comment on above: PATIENT WAS FASTINGP ERFORMED BY: CHITRA Gooden6370 [address] RoadDublin [place] [id number] Ketones Ql (U) Negative Normal Comprehens estela [facility]; [facility] Work Phone: Comment on above: PATIENT WAS FASTINGP ERFORMED BY: CHITRA Gooden6370 [address] RoadDublin [place] [id number] Leukocyte esterase Test strip Ql (U) Negative Normal [facility]; [facility] Work Phone: Comment on above: PATIENT WAS FASTINGP ERFORMED BY: CHITRA Gooden6370 [address] RoadDublin [place] [id number] Microscopic observation LM Nom (Urine sed) MICRON Normal [facility]; [facility] Work Phone: Comment on above: Microscopic follows if indicated. PATIENT WAS FASTINGP ERFORMED BY: CHITRA Fregosolin6370 [address] RoadDublin [place] [id number] Microscopic observation LM Nom (Urine sed) See below: Normal [facility]; [facility] Work Phone: Comment on above: Microscopic was rikki cated and was performed. PATIENT WAS FASTINGP ERFORMED BY: CHITRA Fregosolin6370 [address] RoadDublin [place] [id number] Nitrite Ql (U) Negative Normal Comprehens estela [facility]; [facility] Work Phone: Comment on above: PATIENT WAS FASTINGP ERFORMED BY: CHITRA Fregosolin6370 [address] RoadDublin [place] [id number] pH (U) 7.5 [pH] Normal 5.0-7.5 [facility]; [facility] Work Phone: Comment on above: PATIENT WAS FASTINGP ERFORMED BY: CHITRA Lab[facility]id FregosoWcadjw0267 [address] RoadDublin [place] [id number] Protein Ql (U) Negative Normal Comprehens estela [facility]; [facility] Work Phone: Comment on above: PATIENT WAS FASTINGP ERFORMED BY: CHITRA Labshamika FregosoYmsaoy2872 [address] RoadDublin [place] [id number] Specific gravity (U) [Rel density] 1.012 1 Normal 1.005-1.030 [facility]; [facility] Work Phone: Comment on above: PATIENT WAS FASTINGP ERFORMED BY: [place] Pkcity3899 [facility] [id number] Urobilinogen (U) [Mass/Vol] 0.2 mg/dL Normal 0.2-1.0 [facility]; [facility] Work Phone: Comment on above: PATIENT WAS FASTINGP ERFORMED BY: [place] Dvqszc5763 [facility] [id number] HEPATITIS C ANTIBODY ([id number]) Ordered By: Proctologist on 06-17-2021 HCV Ab Signal/Cutoff IA [Rel units/Vol] {ratio} Normal 0.0-0.9 [facility]; [facility] Work Phone: Comment on above: Negative: < 0.8 Inde terminate: 0.8 - 0.9 Positive: > 0.9 . The CDC recommends that a positive HCV antibody result be followed up with a HCV Nucleic Acid Amplification test (477109). PATIENT NOT FASTINGP ERFORMED BY: [place] Uaulsi5525 [facility] [id number] Blood Glucose , Office (8296 2)Ordered By: Obdulia Bernard on 05-16-2021 Glucose Glucometer (BldC) [Moles/Vol] 125 1 Normal [facility]; [facility] Work Phone: HgA1C , Office ([id number])Ordere d By: Obdulia Bernard on 05-16-2021 HbA1c (Bld) [Mass fraction] 6.0 % Normal 4.6 - 7.1 [facility]; [facility] Work Phone: CALCIFEDIOL (37150)Ordered B y: Proctologist on 02-01-2021 25-hydroxyvitamin D [Mass/Vol] 72.9 ng/mL Normal 30.0-100.0 [facility]; [facility] Work Phone: Comment on above: Vitamin D deficiency has been defined by the [place] and an Endocrine Society practice guideline as alevel of serum 25-OH vitamin D less than 20 ng/mL (1,2).The Endocrine Society went on to further define vitamin Dinsufficiency as a level between 21 and 29 ng/mL (2).1. IOM ([place] [employer]). 2010. Dietary reference intakes for calcium and D. [place]: The National Academies Press.2. Jenny MF, Ryan [place], [facility], et al. Evaluation, treatment, and prevention of vitamin D deficiency: an Endocrine Society clinical practice guideline. JCEM. 2010; 96(6):1911-30. PATIENT WAS FASTINGP ERFORMED BY: CB [facility] Heyyzm5851 [address] RoadDublin [place] [id number] CBC W/AUTO DIFF WBC (24015)O rdered By: Proctologist on 02-01-2021 Basophils (Bld) [#/Vol] 0.0 10*3/uL Normal 0.0-0.2 [facility]; [facility] Work Phone: Comment on above: PATIENT WAS FASTINGP ERFORMED BY: CB [facility] Azfaby5766 [address] RoadDublin [place] [id number] Basophils/100 WBC (Bld) 0 % Normal C omprehensive Internal Medicine; [facility] Work Phone: Comment on above: PATIENT WAS FASTINGP ERFORMED BY: Vast [facility] Udjkce0767 [address] RoadDublin [place] [id number] Eosinophils (Bld) [#/Vol] 0.0 10*3/uL Normal 0.0-0.4 [facility]; [facility] Work Phone: Comment on above: PATIENT WAS FASTINGP ERFORMED BY: CB [facility] Ytsopo3362 [address] RoadDublin [place] [id number] Eosinophils/100 WBC (Bld) 1 % Normal [facility]; [facility] Work Phone: Comment on above: PATIENT WAS FASTINGP ERFORMED BY: Vast [facility] Uwoxlm6087 [address] RoadDublin [place] [id number] Erythrocyte distribution width (RBC) [Ratio] 12.9 % Normal 11.7-15.4 [facility]; [facility] Work Phone: Comment on above: PATIENT WAS FASTINGP ERFORMED BY: CHITRA Labcodavid Wvfipt7492 [address] RoadDublin [place] [id number] Hematocrit (Bld) [Volume fraction] 42.6 % Normal 34.0-46.6 [facility]; [facility] Work Phone: Comment on above: PATIENT WAS FASTINGP ERFORMED BY: CB [facility] Kygpza7407 [address] Roadblin [place] [id number] Hemoglobin (Bld) [Mass/Vol] 14.4 g/dL Normal 11.1-15.9 [facility]; [facility] Work Phone: Comment on above: PATIENT WAS FASTINGP ERFORMED BY: CHITRA Lab[facility] FregosoJlxjkf3112 [address] [facility]bl[facility] [place] [id number] Immature granulocytes (Bld) [#/Vol] 0.0 10*3/uL Normal 0.0-0.1 [facility]; [facility] Work Phone: Comment on above: PATIENT WAS FASTINGP ERFORMED BY: [facility] Razrff6917 [address] Roadblin [place] [id number] Immature granulocytes/100 WBC (Bld) 0 % Normal [facility]; [facility] Work Phone: Comment on above: PATIENT WAS FASTINGP ERFORMED BY: [facility] Dnuntz0027 [address] [facility]bl[facility] [place] [id number] Lymphocytes (Bld) [#/Vol] 1.3 10*3/uL Normal 0.7-3.1 [facility]; [facility] Work Phone: Comment on above: PATIENT WAS FASTINGP ERFORMED BY: [facility] Upnbfd7456 [address] RoadDublin [place] [id number] Lymphocytes/100 WBC (Bld) 25 % Normal [facility]; [facility] Work Phone: Comment on above: PATIENT WAS FASTINGP ERFORMED BY: CB [facility] Thxgfs5970 [address] RoadDublin [place] [id number] MCH (RBC) [Entitic mass] 30.1 pg Normal 26.6-33.0 [facility]; [facility] Work Phone: Comment on above: PATIENT WAS FASTINGP ERFORMED BY: CHITRA [facility] Isaejc1749 [address] RoadDublin [place] [id number] MCHC (RBC) [Mass/Vol] 33.8 g/dL Normal 31.5-35.7 [facility] prehensive Internal Medicine; [facility] Work Phone: Comment on above: PATIENT WAS FASTINGP ERFORMED BY: CHITRA [facility] Wxvvba2395 [address] RoadDublin [place] [id number] MCV (RBC) [Entitic vol] 89 fL Normal 79-97 C omprehensive Internal Medicine; [facility] Work Phone: Comment on above: PATIENT WAS FASTINGP ERFORMED BY: CHITRA Labcodavid FregosoLdvxec3335 [address] RoadDublin [place] [id number] Monocytes (Bld) [#/Vol] 0.9 10*3/uL Normal 0.1-0.9 [facility]; [facility] Work Phone: Comment on above: PATIENT WAS FASTINGP ERFORMED BY: CHITRA [facility] Wrasbw6965 [address] RoadDublin [place] [id number] Monocytes/100 WBC (Bld) 17 % Normal C [facility]rehens[facility]; [facility] Work Phone: Comment on above: PATIENT WAS FASTINGP ERFORMED BY: CHITRA [facility] Gtgjar8664 [address] RoadDublin [place] [id number] Neutrophils (Bld) [#/Vol] 3.0 10*3/uL Normal 1.4-7.0 [facility]; [facility] Work Phone: Comment on above: PATIENT WAS FASTINGP ERFORMED BY: CB [facility] Hymehw4001 [address] RoadDublin [place] [id number] Neutrophils/100 WBC (Bld) 57 % Normal [facility]; [facility] Work Phone: Comment on above: PATIENT WAS FASTINGP ERFORMED BY: CHITRA [facility] Edevlk7001 [address] RoadDublin [place] [id number] Platelets (Bld) [#/Vol] 262 10*3/uL Normal 150-450 [facility]; [facility] Work Phone: Comment on above: PATIENT WAS FASTINGP ERFORMED BY: CHITRA Labshamika Gooden6370 [address] RoadDublin [place] [id number] RBC (Bld) [#/Vol] 4.79 10*6/uL Normal 3.77-5.28 Compr ensive Internal Medicine; [facility] Work Phone: Comment on above: PATIENT WAS FASTINGP ERFORMED BY: CHITRA [facility] Ghpiyq7390 [address] RoadDublin [place] [id number] WBC (Bld) [#/Vol] 5.3 10*3/uL Normal 3.4-10.8 Compre [facility] Internal Medicine; [facility] Work Phone: Comment on above: PATIENT WAS FASTINGP ERFORMED BY: CHITRA Labshamika FregosoTxnxgz3202 [address] Roadblin [place] [id number] LIPID PANEL (36127)Ordered B y: Proctologist on 02-01-2021 Cholesterol [Mass/Vol] 159 mg/dL Normal 100-199 [facility]; [facility] Work Phone: Comment on above: PATIENT WAS FASTINGP ERFORMED BY: CHITRA Labshamika Gooden6370 [address] RoadDublin [place] [id number] Cholesterol in HDL [Mass/Vol] 64 mg/dL Normal [facility]; [facility] Work Phone: Comment on above: PATIENT WAS FASTINGP ERFORMED BY: CHITRA [facility] Jarpzk8907 [address] RoadDublin [place] [id number] Triglyceride [Mass/Vol] 105 mg/dL Normal 0-149 C ompselect [facility]ensive [facility]; [facility] Work Phone: Comment on above: PATIENT WAS FASTINGP ERFORMED BY: CHITRA [facility] Nfzjpn2481 [address] RoadDublin [place] [id number] LIPID PANEL (99341) 19 mg/dL Normal 5-40 Compr ensive Internal Medicine; [facility] Work Phone: Comment on above: PATIENT WAS FASTINGP ERFORMED BY: CB [facility] Nydwza9777 [address] RoadDublin [place] [id number] LIPID PANEL (06811) 76 mg/dL Normal 0-99 [facility] Internal Medicine; [facility] Work Phone: Comment on above: PATIENT WAS FASTINGP ERFORMED BY: CB [facility] Osmfxj8888 [address] RoadDublin [place] [id number] LIPID PANEL (44345) 1.2 {ratio} Normal 0.0-3.2 [facility] Internal Medicine; [facility] Work Phone: Comment on above: LDL/HDL Ratio Men Wo men 1/2 Avg.Risk 1.0 1.5 Avg.Risk 3.6 3.2 2X Avg.Risk 6.2 5.0 3X Avg.Risk 8.0 6.1 PATIENT WAS FASTINGP ERFORMED BY: CB [facility] Eofqhk7871 [address] RoadDublin [place] [id number] METABOLIC PANEL, COMPREHENSI VE (92299)Ordered By: Proctologist on 02-01-2021 Albumin [Mass/Vol] 4.3 g/dL Normal 3.8-4.8 [facility] Internal Medicine; [facility] Work Phone: Comment on above: PATIENT WAS FASTINGP ERFORMED BY: CB [facility] Eycfey2813 [address] RoadDublin [place] [id number] Albumin/Globulin [Mass ratio] 1.6 {ratio} Normal 1.2-2.2 [facility]; [facility] Work Phone: Comment on above: PATIENT WAS FASTINGP ERFORMED BY: CB [facility] Fsotmp6514 [address] RoadDublin [place] [id number] ALP [Catalytic activity/Vol] 85 U/L Normal 44-121 [facility]; [facility] Work Phone: Comment on above: Please note refere nce interval change PATIENT WAS FASTINGP ERFORMED BY: CB [facility] Szygof0586 [address] RoadDublin [place] [id number] ALT [Catalytic activity/Vol] 26 U/L Normal 0-32 [facility]; [facility] Work Phone: Comment on above: PATIENT WAS FASTINGP ERFORMED BY: CB [facility] Rmmoiz8040 [address] RoadDublin [place] [id number] AST [Catalytic activity/Vol] 24 U/L Normal 0-40 [facility]; [facility] Work Phone: Comment on above: PATIENT WAS FASTINGP ERFORMED BY: CB [facility] Avwthv3499 [address] RoadDublin [place] [id number] Bilirubin [Mass/Vol] 0.3 mg/dL Normal 0.0-1.2 Comp rehensive Internal Medicine; [facility] Work Phone: Comment on above: PATIENT WAS FASTINGP ERFORMED BY: CB [facility] Ppthvb0218 [address] RoadDublin [place] [id number] Calcium [Mass/Vol] 9.4 mg/dL Normal 8.7-10.3 [facility] Internal Medicine; [facility] Work Phone: Comment on above: PATIENT WAS FASTINGP ERFORMED BY: CB [facility] Zgavse6862 [address] RoadDublin [place] [id number] Chloride [Moles/Vol] 99 mmol/L Normal 96-106 Comp rehensive Internal Medicine; [facility] Work Phone: Comment on above: PATIENT WAS FASTINGP ERFORMED BY: CB [facility] Idvatk5121 [address] RoadDublin [place] [id number] CO2 [Moles/Vol] 25 mmol/L Normal 20-29 [facility]; [facility] Work Phone: Comment on above: PATIENT WAS FASTINGP ERFORMED BY: CB [facility] Kmwkjb2782 [address] RoadDublin [place] [id number] Creatinine [Mass/Vol] 0.78 mg/dL Normal 0.57-1.00 [facility]; [facility] Work Phone: Comment on above: PATIENT WAS FASTINGP ERFORMED BY: CB [facility] Hkbhet0666 [address] RoadDublin [place] [id number] GFR/1.73 sq M.predicted among blacks CKD-EPI (S/P/Bld) [Vol rate/Area] 90 mL/min/1.73 Normal [facility]; [facility] Work Phone: Comment on above: In accordance with recommendations from the NKF-ASN Task force, [facility] is in the process of updating its eGFR calculation to the 2020 CKD-EPI creatinine equation that estimates kidney function without a race variable. PATIENT WAS FASTINGP ERFORMED BY: Vitaliy Jganyj2480 [facility] [id number] GFR/1.73 sq M.predicted among non-blacks CKD-EPI (S/P/Bld) [Vol rate/Area] 78 mL/min/1.73 Normal [facility]; [facility] Work Phone: Comment on above: PATIENT WAS FASTINGP ERFORMED BY: V[facility]iy Dytewo7829 [facility] [id number] Globulin (S) [Mass/Vol] 2.7 g/dL Normal 1.5-4.5 C omprehensive Internal Medicine; [facility] Work Phone: Comment on above: PATIENT WAS FASTINGP ERFORMED BY: Vitaliy Titzat2590 [facility] [id number] Glucose [Mass/Vol] 106 mg/dL Abnormal 65-99 [facility]; [facility] Work Phone: Comment on above: PATIENT WAS FASTINGP ERFORMED BY: Vitaliy Frbgcq6877 [facility] [id number] Potassium [Moles/Vol] 4.5 mmol/L Normal 3.5-5.2 [facility] prehensive Internal Medicine; [facility] Work Phone: Comment on above: PATIENT WAS FASTINGP ERFORMED BY: Vitaliy Kgrafs5594 [facility] [id number] Protein [Mass/Vol] 7.0 g/dL Normal 6.0-8.5 [facility] Internal Medicine; [facility] Work Phone: Comment on above: PATIENT WAS FASTINGP ERFORMED BY: V[facility]iy Sgnoga3379 [facility] [id number] Sodium [Moles/Vol] 139 mmol/L Normal 134-144 [facility] Internal Medicine; [facility] Work Phone: Comment on above: PATIENT WAS FASTINGP ERFORMED BY: [facility] Sdjojo2025 [address] RoadDuin [place] [id number] Urea nitrogen [Mass/Vol] 13 mg/dL Normal 8- [facility]; [facility] Work Phone: Comment on above: PATIENT WAS FASTINGP ERFORMED BY: CB [facility] Jwqobp9264 [address] RoadDuin [place] [id number] Urea nitrogen/Creatinine [Mass ratio] 17 mg/mg Normal 12- [facility]; [facility] Work Phone: Comment on above: PATIENT WAS FASTINGP ERFORMED BY: CB [facility] Agdmzi6510 [address] [facility] [id number] TSH ([id number])Ordered By: Mis m Tape Librarian on 02-01-2021 TSH Qn 1.790 {uIU/mL} Normal 0.450-4.500 [facility]; [facility] Work Phone: Comment on above: PATIENT WAS FASTINGP ERFORMED BY: CB [facility] Gcljqv7546 [address] [facility]in [place] [id number] Blood Glucose , Office (8296 2)Ordered By: Anaya Orlando on 11-21-2020 Glucose Glucometer (BldC) [Moles/Vol] 98 1 Normal [facility]; [facility] Work Phone: HgA1C , Office (27054)Ordere d By: Anaya Orlando on 11-21-2020 HbA1c (Bld) [Mass fraction] 6.0 % Normal 4.6 - 7.1 [facility]; [facility] Work Phone: CALCIFIDIOL (79722) VIT D 25 Ordered By: Proctologist on 09-13-2020 25-hydroxyvitamin D [Mass/Vol] 44.0 ng/mL Normal 30.0-100.0 [facility]; [facility] Work Phone: Comment on above: Vitamin D deficiency has been defined by the [place] of[place] and an Endocrine Society practice guideline as alevel of serum 25-OH vitamin D less than 20 ng/mL (1,2).The Endocrine Society went on to further define vitamin Dinsufficiency as a level between 21 and 29 ng/mL (2).1. IOM ([place] [employer]). 2010. Dietary reference intakes for calcium and D. [place]: The National Academies Press.2. Jenny MF, Ryan ALEJANDRO, [facility] S[facility]SA, et al. Evaluation, treatment, and prevention of vitamin D deficiency: an Endocrine Society clinical practice guideline. JCEM. 2010; 96(7):1911-30. Test(s) 503152-GPG-B ; 747174-ZVC-E; 970227-Jscdofkisyxeo; 492953-Hossbytvepk, Total; 434467-NCA-I (Total); 354637-Vmnvp LDL-P; 118071-JJW Size; 345054-MF-KP Scorewas developed and its performance characteristics determinedby [employer]. It has not been cleared or approved by the Foodand Drug Administration.PATIENT WAS FASTINGPERFORMED BY: MexxBooks1447 [facility] [id number] BY: CYPHER Znasvh8728 [facility] [id number] NMR Profile (07836)Ordered B y: Proctologist on 09-13-2020 Cholesterol [Mass/Vol] 192 mg/dL Normal 100-199 [facility]; [facility] Work Phone: Comment on above: Test(s) 577886-LKQ-C ; 883012-ZTV-U; 905317-Xqcbmwmftmehz; 469701-Bymlmgjvthr, Total; 580410-HRD-D (Total); 494633-Zaqzh LDL-P; 417590-JCO Size; 197071-YV-XQ Scorewas developed and its performance characteristics determinedby [employer]. It has not been cleared or approved by the Foodand Drug Administration.PATIENT WAS FASTINGPERFORMED BY: Amulaire Thermal Technologyton1447 [facility] [id number] BY: TrendBent6370 [facility] [id number] Cholesterol in HDL [Mass/Vol] 80 mg/dL Normal [facility]; [facility] Work Phone: Comment on above: Test(s) 966058-AFX-P ; 115548-CUX-B; 223369-Mjgjjavfbqjcz; 424395-Chiecaqlumm, Total; 325628-MJN-T (Total); 161462-Khwsj LDL-P; 282415-GAE Size; 759484-EO-ZH Scorewas developed and its performance characteristics determinedby [employer]. It has not been cleared or approved by the Foodand Drug Administration.PATIENT WAS FASTINGPERFORMED BY: [employer] [id number] BY: TrendBent6370 [facility] [id number] Lipoprotein.alpha [Moles/Vol] 45.9 umol/L Normal [facility]; [facility] Work Phone: Comment on above: Test(s) 397009-OMZ-B ; 473997-SZW-C; 388576-Wqgkgignkxbrj; 876140-Xnkhlujrmqj, Total; 371043-RDT-O (Total); 269414-Avqol LDL-P; 311304-NOR Size; 810572-KN-NR Scorewas developed and its performance characteristics determinedby [employer]. It has not been cleared or approved by the Foodand Drug Administration.PATIENT WAS FASTINGPERFORMED BY: [employer] [id number] BY: TrendBent6370 [facility] [id number] Lipoprotein.beta.subpar ticle [Entitic length] 21.2 nm Normal [facility]; [facility] Work Phone: [...] <-Small (Pattern B)-> 23.0 20.6 20.5 19.0 Smal l LDL-P and LDL Size are associated with CVD risk, but not afterLDL-P is taken into account. Test(s) 083367-ZZB-K ; 981348-RJS-S; 572639-Ivibakzqdbywr; 923380-Gtkqjxxrxem, Total; 941791-LID-N (Total); 728162-Avqey LDL-P; 452344-QYI Size; 492059-IK-UU Scorewas developed and its performance characteristics determinedby [employer]. It has not been cleared or approved by the Foodand Drug Administration.PATIENT WAS FASTINGPERFORMED BY: HERMEL DELOR [address] [id number] BY: HERMEL DELOR [address] [id number] Lipoprotein.beta.subpar ticle [Moles/Vol] 1019 nmol/L Abnormal [facility]; [facility] Work Phone: Comment on above: Low < 1000 Moderate 1000 - 1299 Borderline-High 1300 - 1599 High 1600 - 2000 Very High > 2000 Test(s) 506321-KIA-U ; 857705-OLU-N; 505799-Rwoxozpnqvdif; 224144-Vwssjeoktgu, Total; 738121-EPI-C (Total); 738729-Rguel LDL-P; 257521-JBE Size; 332122-JR-WY Scorewas developed and its performance characteristics determinedby [employer]. It has not been cleared or approved by the Foodand Drug Administration.PATIENT WAS FASTINGPERFORMED BY: [employer] [address] [id number] BY: BodyGuardzRunnells Specialized HospitalKhtvyn7086 [facility] [id number] Lipoprotein.beta.subpar ticle.small [Moles/Vol] 463 nmol/L Normal Comprehe nsive Internal Medicine; [facility] Work Phone: Comment on above: Test(s) 292165-QDP-S ; 510995-IJG-S; 643170-Ynvdavknbslwz; 148622-Wugrikpuflo, Total; 278005-JQW-W (Total); 239117-Owspx LDL-P; 110852-MIR Size; 592917-JX-OE Scorewas developed and its performance characteristics determinedby [employer]. It has not been cleared or approved by the Foodand Drug Administration.PATIENT WAS FASTINGPERFORMED BY: [employer] [id number] BY: BodyGuardz Wjqdag8445 [facility] [id number] Triglyceride [Mass/Vol] 102 mg/dL Normal 0-149 C omprehensive Internal Medicine; [facility] Work Phone: Comment on above: Test(s) 298647-RHO-N ; 935699-KOI-Q; 235178-Yykvcrypxofde; 269064-Qbpzxsaxjtc, Total; 026264-RNY-R (Total); 227053-Tmuxw LDL-P; 939845-VEB Size; 879831-VY-PE Scorewas developed and its performance characteristics determinedby Game[employer]. It has not been cleared or approved by the Foodand Drug Administration.PATIENT WAS FASTINGPERFORMED BY: [employer] [address] [id number] BY: BodyGuardzRunnells Specialized HospitalEtezpd3163 [facility] [id number] NMR Profile (20168) 94 mg/dL Normal 0-99 Compr ehensive Internal [facility]; [facility] Work Phone: Comment on above: . Optimal < 100 Abov e optimal 100 - 129 Borderline 130 - 159 High 160 - 189 Very high > 189 . Test(s) 948051-SMX-D ; 482832-RWR-W; 131257-Wdjxjmaqykjnn; 471676-Ybrwfuxzbox, Total; 061570-XDC-V (Total); 361161-Gvzkj LDL-P; 011065-FVB Size; 660360-UQ-BE Scorewas developed and its performance characteristics determinedby Gdd Hcanalyticsfreeman heart institute. It has not been cleared or approved by the Foodand Drug Administration.PATIENT WAS FASTINGPERFORMED BY: [address] [id number] BY: BodyGuardzRunnells Specialized HospitalMfqkle3388 [facility] [id number] C-REACT PROT HIGH SENS(hsCRP ) (29227)Ordered By: Proctologist on 08-01-2020 CRP High sensitivity method [Mass/Vol] 12.00 mg/L Abnormal 0.00-3.00 [facility]; [facility] Work Phone: Comment on above: Relative Risk for Fu ture Cardiovascular Event Low <1.00 Average 1.00 - 3.00 High >3.00 Fax Results to ; A courtesy copy of this report has been sent to [phone] NOT FASTINGPERFORMED BY: BodyGuardzRunnells Specialized HospitalXyzvpa8226 [facility] [id number] CALCIFEDIOL (42300)Ordered B y: Proctologist on 08-01-2020 25-hydroxyvitamin D [Mass/Vol] 39.5 ng/mL Normal 30.0-100.0 [facility]; [facility] Work Phone: Comment on above: Vitamin D deficiency has been defined by the [place] [employer] and an Endocrine Society practice guideline as alevel of serum 25-OH vitamin D less than 20 ng/mL (1,2).The Endocrine Society went on to further define vitamin Dinsufficiency as a level between 21 and 29 ng/mL (2).1. IOM ([place] of [place]). 2010. Dietary reference intakes for calcium and D. [place]: The National Academies Press.2. Jenny STEEL, Ryan ALEJANDRO, [facility], et al. Evaluation, treatment, and prevention of vitamin D deficiency: an Endocrine Society clinical practice guideline. JCEM. 2010; 96(7):1911-30. Fax Results to [phone]; A courtesy copy of this report has been sent to [phone] NOT FASTINGPERFORMED BY: [employer]oceros70 [employer] [place] [id number] HEPATITIS C ANTIBODY (08976) Ordered By: Proctologist on 08-01-2020 HCV Ab Signal/Cutoff IA [Rel units/Vol] {ratio} Normal 0.0-0.9 [facility]; [facility] Work Phone: Comment on above: Negative: < 0.8 Inde terminate: 0.8 - 0.9 Positive: > 0.9 . The CDC recommends that a positive HCV antibody result be followed up with a HCV Nucleic Acid Amplification test (841161). PATIENT NOT FASTINGP ERFORMED BY: TrendBent6370 [employer] [place] [id number] HGB A1C (00751)Ordered By: S GiveMeSporttem Tape Librarian on 08-01-2020 HbA1c (Bld) [Mass fraction] 6.1 % Abnormal 4.8-5.6 [facility]; [facility] Work Phone: Comment on above: . Prediabetes: 5.7 - 6.4 Diabetes: >6.4 Glycemic control for adults with diabetes: <7.0 Fax Results to ; A courtesy copy of this report has been sent to [phone] NOT FASTINGPERFORMED BY: TrendBent6370 [employer] [place] [id number] METABOLIC PANEL, COMPREHENSI VE (03585)Ordered By: Proctologist on 08-01-2020 Albumin [Mass/Vol] 4.5 g/dL Normal 3.8-4.8 [facility] Internal Medicine; [facility] Work Phone: Comment on above: Fax Results to ; A courtesy copy of this report has been sent to [phone] NOT FASTINGPERFORMED BY: [facility] Kexoat0844 [facility] [id number] Information: [facility] Albumin/Globulin [Mass ratio] 1.9 {ratio} Normal 1.2-2.2 [facility]; [facility] Work Phone: Comment on above: Fax Results to [phone]; A courtesy copy of this report has been sent to [phone] NOT FASTINGPERFORMED BY: [facility]6370 [facility] [id number] Information: [facility] ALP [Catalytic activity/Vol] 82 U/L Normal 48-121 [facility]; [facility] Work Phone: Comment on above: Fax Results to ; A courtesy copy of this report has been sent to [phone] NOT FASTINGPERFORMED BY: [place] 6999870 [facility] [id number] Information: [facility] ALT [Catalytic activity/Vol] 18 U/L Normal 0-32 [facility]; [facility] Work Phone: Comment on above: Fax Results to [phone]; A courtesy copy of this report has been sent to [phone] NOT FASTINGPERFORMED BY: [facility] Jhagss7622 [facility] [id number] Information: [facility] AST [Catalytic activity/Vol] 16 U/L Normal 0-40 [facility]; [facility] Work Phone: Comment on above: Fax Results to ; A courtesy copy of this report has been sent to [phone] NOT FASTINGPERFORMED BY: Gdd HcanalyticsOzarks Medical Center Dwrdtg2658 [facility] [id number] Information: [facility] Bilirubin [Mass/Vol] 0.3 mg/dL Normal 0.0-1.2 Comp rehensive Internal Medicine; [facility] Work Phone: Comment on above: Fax Results to ; A courtesy copy of this report has been sent to [phone] NOT FASTINGPERFORMED BY: [employer]Guardz Rjtpef0616 [facility] [id number] Information: [facility] Calcium [Mass/Vol] 9.8 mg/dL Normal 8.7-10.3 [facility] Internal Medicine; [facility] Work Phone: Comment on above: Fax Results to ; A courtesy copy of this report has been sent to [phone] NOT FASTINGPERFORMED BY: CHITRA BodyGuardz Qvzgkl6123 [facility] [id number] Information: [facility] Chloride [Moles/Vol] 102 mmol/L Normal 96-106 [facility] rehensive Internal Medicine; [facility] Work Phone: Comment on above: Fax Results to [phone]; A courtesy copy of this report has been sent to [phone] NOT FASTINGPERFORMED BY: BodyGuardz Enpdsq9261 [facility] [id number] Information: [facility] CO2 [Moles/Vol] 27 mmol/L Normal 20-29 [facility]; [facility] Work Phone: Comment on above: Fax Results to ; A courtesy copy of this report has been sent to [phone] NOT FASTINGPERFORMED BY: Gdd HcanalyticsBeaumont Hospital6370 [facility] [id number] Information: [facility] Creatinine [Mass/Vol] 0.73 mg/dL Normal 0.57-1.00 [facility]; [facility] Work Phone: Comment on above: Fax Results to [phone]; A courtesy copy of this report has been sent to [phone] NOT FASTINGPERFORMED BY: BodyGuardzRunnells Specialized HospitalBuivsk2784 [facility] [id number] Information: [facility] GFR/1.73 sq M.predicted among blacks CKD-EPI (S/P/Bld) [Vol rate/Area] 97 mL/min/1.73 Normal [facility]; [facility] Work Phone: Comment on above: [facility] currently reports eGFR in compliance with the current recommendations of the National Kidney Foundation. [facility] will update reporting as new guidelines are published from the NKF-ASN Task force. Fax Results to [phone]; A courtesy copy of this report has been sent to [phone] NOT FASTINGPERFORMED BY: [facility] CenterAllegiance Health FoundationTohatchi Health Care CenterUamvuz9788 [facility] [id number] Information: [facility] GFR/1.73 sq M.predicted among non-blacks CKD-EPI (S/P/Bld) [Vol rate/Area] 84 mL/min/1.73 Normal [facility]; [facility] Work Phone: Comment on above: Fax Results to ; A courtesy copy of this report has been sent to [phone] NOT FASTINGPERFORMED BY: [facility] CenterAllegiance Health FoundationRunnells Specialized HospitalFxltwf9897 [facility] [id number] Information: [facility] Globulin (S) [Mass/Vol] 2.4 g/dL Normal 1.5-4.5 C omprehensive Internal Medicine; [facility] Work Phone: Comment on above: Fax Results to [phone]; A courtesy copy of this report has been sent to [phone] NOT FASTINGPERFORMED BY: BodyGuardzRunnells Specialized HospitalCltzer8084 [facility] [id number] Information: [facility] Glucose [Mass/Vol] 111 mg/dL Abnormal 65-99 Compre hensive Internal Medicine; [facility] Work Phone: Comment on above: Fax Results to [phone]; A courtesy copy of this report has been sent to [phone] NOT FASTINGPERFORMED BY: CHITRA BodyGuardzdavid FregosoGlympl7724 [facility] [id number] Information: [facility] Potassium [Moles/Vol] 4.7 mmol/L Normal 3.5-5.2 [facility] Internal [facility]; [facility] Work Phone: Comment on above: Fax Results to [facility] [phone]; A courtesy copy of this report has been sent to [phone] NOT FASTINGPERFORMED BY: CHITRA Gdd HcanalyticsShamika FregosoUlksxe1842 [facility] [id number] Information: [facility] Protein [Mass/Vol] 6.9 g/dL Normal 6.0-8.5 [facility] Internal [facility]; [facility] Work Phone: Comment on above: Fax Results to [facility] [phone]; A courtesy copy of this report has been sent to [phone] NOT FASTINGPERFORMED BY: CHITRA BodyGuardzdavid FregosoNjsbcz7075 [facility] [id number] Information: [facility] Sodium [Moles/Vol] 141 mmol/L Normal 134-144 [facility] Internal Medicine; [facility] Work Phone: Comment on above: Fax Results to [facility]6 [phone]; A courtesy copy of this report has been sent to [phone] NOT FASTINGPERFORMED BY: CHITRA BodyGuardzdavid FregosoAczqbz0318 [facility] [id number] Information: [facility] Urea nitrogen [Mass/Vol] 11 mg/dL Normal 8-27 [facility]; [facility] Work Phone: Comment on above: Fax Results to ; A courtesy copy of this report has been sent to [phone] NOT FASTINGPERFORMED BY: CHITRA BodyGuardz Pvrycj8963 [facility] [id number] Information: [facility] Urea nitrogen/Creatinine [Mass ratio] 15 mg/mg Normal 12-28 [facility]; [facility] Work Phone: Comment on above: Fax Results to ; A courtesy copy of this report has been sent to [phone] NOT FASTINGPERFORMED BY: CHITRA [facility]6370 [facility] [id number] Information: [facility] TSH (THYROID STIMULATING HOR JOHN) (78456)Ordered By: Proctologist on 08-01-2020 TSH Qn 0.543 {uIU/mL} Normal 0.450-4.500 [facility]; [facility] Work Phone: Comment on above: Fax Results to ; A courtesy copy of this report has been sent to [phone] NOT FASTINGPERFORMED BY: BodyGuardzRunnells Specialized HospitalBhbmoe8775 [facility] [id number] CBC with auto diff (84800)Or dered By: Proctologist on 05-01-2020 Basophils (Bld) [#/Vol] 0.0 {x10E3/uL} Normal 0.0-0.2 [facility]; [facility] Work Phone: Comment on above: Test(s) 905064-UHV-R ; 558729-LBQ-K; 686555-Qirbqnkzsnazw; 036919-Hvefglpuykw, Total; 918548-STT-X (Total); 655486-Txrkt LDL-P; 637527-IDX Size; 486523-TO-QX Scorewas developed and its performance characteristics determinedby Game[employer]. It has not been cleared or approved by the Foodand Drug Administration.PATIENT WAS FASTINGPERFORMED BY: [place] [address] [facility] [id number] BY: [facility]6370 [facility] [id number] Basophils (Bld) [#/Vol] 0.0 10*3/uL Normal 0.0-0.2 [facility]; [facility] Work Phone: Comment on above: Test(s) 550315-AAH-J ; 824766-BDB-P; 052645-Wfpoznzflqsuk; 986320-Hqybndurqsx, Total; 264889-MCZ-D (Total); 459522-Khfni LDL-P; 581622-MNW Size; 159349-OX-RB Scorewas developed and its performance characteristics determinedby [employer]. It has not been cleared or approved by the Foodand Drug Administration.PATIENT WAS FASTINGPERFORMED BY: [employer] [address] [id number] BY: Bioceros70 [employer] [id number] Basophils/100 WBC (Bld) 1 % Normal C ompunm [facility] Internal Medicine; [facility] Work Phone: Comment on above: Test(s) 458136-ASZ-C ; 307612-KBI-D; 799419-Rqpbmbofsuffe; 088044-Fuwgvgopkvf, Total; 059978-NOS-J (Total); 693445-Fzqyy LDL-P; 924084-YVA Size; 109498-SU-IY Scorewas developed and its performance characteristics determinedby [employer]. It has not been cleared or approved by the Foodand Drug Administration.PATIENT WAS FASTINGPERFORMED BY: [employer] [address] [id number] BY: TrendBent6370 [employer] [facility] [id number] Eosinophils (Bld) [#/Vol] 0.2 {x10E3/uL} Normal 0.0-0.4 [facility]; [facility] Work Phone: Comment on above: Test(s) 797902-IJD-M ; 781759-BRO-I; 262168-Vrecegsapgovh; 015462-Qqiavepnlor, Total; 149446-HDE-E (Total); 006887-Cyzaj LDL-P; 637260-KQW Size; 014510-OP-JZ Scorewas developed and its performance characteristics determinedby [employer]. It has not been cleared or approved by the Foodand Drug Administration.PATIENT WAS FASTINGPERFORMED BY: [employer] [address] [id number] BY: TrendBent6370 [facility] [id number] Eosinophils (Bld) [#/Vol] 0.2 10*3/uL Normal 0.0-0.4 [facility]; [facility] Work Phone: Comment on above: Test(s) 568413-OBD-O ; 125913-ARV-L; 038210-Gprxltuifueum; 974501-Hnjpasifwvw, Total; 369843-HKT-U (Total); 229465-Ztykh LDL-P; 101236-ZVR Size; 470718-PZ-TD Scorewas developed and its performance characteristics determinedby [employer]. It has not been cleared or approved by the Foodand Drug Administration.PATIENT WAS FASTINGPERFORMED BY: [employer] [id number] BY: TrendBent6370 Tamayo Syn[facility] MedicalUNC [facility] Caldwell [id number] Eosinophils/100 WBC (Bld) 2 % Normal [facility]; [facility] Work Phone: Comment on above: Test(s) 591737-TRO-V ; 504333-SNR-K; 149858-Ggbzyyzrbyzki; 382341-Mogplekinoh, Total; 251258-GYK-Q (Total); 388947-Ewtxu LDL-P; 349965-XFR Size; 789041-TL-BB Scorewas developed and its performance characteristics determinedby [employer]. It has not been cleared or approved by the Foodand Drug Administration.PATIENT WAS FASTINGPERFORMED BY: [employer] [address] [id number] BY: Advanced Catheter TherapiesRunnells Specialized HospitalLcoigj7462 [facility] [id number] Erythrocyte distribution width (RBC) [Ratio] 12.5 % Normal 11.7-15.4 [facility]; [facility] Work Phone: Comment on above: Test(s) 501007-IZC-Y ; 233994-PAN-R; 461438-Fbyfksukrjlqq; 406437-Vmwlmyqdhlv, Total; 959944-HEL-W (Total); 979337-Mnjbf LDL-P; 222254-LRK Size; 361999-EP-UB Scorewas developed and its performance characteristics determinedby [employer]. It has not been cleared or approved by the Foodand Drug Administration.PATIENT WAS FASTINGPERFORMED BY: [employer] [address] [id number] BY: CYPHER Depnkz5902 [facility] [id number] Hematocrit (Bld) [Volume fraction] 41.3 % Normal 34.0-46.6 [facility]; [facility] Work Phone: Comment on above: Test(s) 497255-JBY-K ; 538694-HSL-J; 979245-Akqsfokwrahev; 504746-Aamrsirxcxn, Total; 722045-CTY-S (Total); 653656-Hqmuf LDL-P; 801170-ZNJ Size; 793224-RR-CN Scorewas developed and its performance characteristics determinedby [employer]. It has not been cleared or approved by the Foodand Drug Administration.PATIENT WAS FASTINGPERFORMED BY: [employer] [address] [id number] BY: CYPHER Jsjfpo8253 [facility] [id number] Hemoglobin (Bld) [Mass/Vol] 13.8 g/dL Normal 11.1-15.9 [facility]; [facility] Work Phone: Comment on above: Test(s) 233209-GDR-Z ; 099119-MFE-A; 867390-Zfqtbvigakfps; 763139-Hgmjwwyxjdf, Total; 058153-TDK-X (Total); 272556-Juejg LDL-P; 684570-OWP Size; 675920-FC-ZO Scorewas developed and its performance characteristics determinedby [employer]. It has not been cleared or approved by the Foodand Drug Administration.PATIENT WAS FASTINGPERFORMED BY: BN [facility]Co[address] [id number] BY: [employer] Luaamg3787 [facility] [id number] Immature granulocytes (Bld) [#/Vol] 0.0 {x10E3/uL} Normal 0.0-0.1 [facility]; [facility] Work Phone: Comment on above: Test(s) 883945-VHJ-B ; 432285-XIL-C; 280894-Sgcngvqgnccmd; 922568-Hkbvbzofzzw, Total; 720605-WXC-N (Total); 034933-Cuyqv LDL-P; 321273-OXG Size; 667711-WR-CA Scorewas developed and its performance characteristics determinedby [employer]. It has not been cleared or approved by the Foodand Drug Administration.PATIENT WAS FASTINGPERFORMED BY: [employer] [address] [id number] BY: [employer]70 [facility] [id number] Immature granulocytes (Bld) [#/Vol] 0.0 10*3/uL Normal 0.0-0.1 [facility]; [facility] Work Phone: Comment on above: Test(s) 408912-CWP-D ; 590671-NQZ-Q; 956580-Kdspeezghnxbu; 120533-Uwrlxxqxaxl, Total; 137456-AQZ-A (Total); 322544-Hhshk LDL-P; 045557-WHY Size; 117211-ZE-UD Scorewas developed and its performance characteristics determinedby [employer]. It has not been cleared or approved by the Foodand Drug Administration.PATIENT WAS FASTINGPERFORMED BY: AKAMON ENTERTAINMENT [address] [id number] BY: Social Pluslin6370 [facility] [id number] Immature granulocytes/100 WBC (Bld) 0 % Normal [facility]; [facility] Work Phone: Comment on above: Test(s) 384201-UOJ-V ; 994806-ZIC-C; 589919-Tddfwhmoayptt; 942216-Xefnloldkxw, Total; 973056-CJE-U (Total); 966975-Liewg LDL-P; 899320-HSF Size; 245657-JD-YV Scorewas developed and its performance characteristics determinedby [employer]. It has not been cleared or approved by the Foodand Drug Administration.PATIENT WAS FASTINGPERFORMED BY: BodyGuardz[address] [id number] BY: BodyGuardzBrandon [place] 5389670 [facility] [id number] Lymphocytes (Bld) [#/Vol] 1.8 {x10E3/uL} Normal 0.7-3.1 [facility]; [facility] Work Phone: Comment on above: Test(s) 215619-ITB-Z ; 356887-XYP-Z; 919185-Tjoibrcacpdgx; 830324-Ydskhqidfpn, Total; 681968-DWU-A (Total); 534427-Wmnnh LDL-P; 831185-FGH Size; 542991-VZ-YS Scorewas developed and its performance characteristics determinedby [employer]. It has not been cleared or approved by the Foodand Drug Administration.PATIENT WAS FASTINGPERFORMED BY: BodyGuardz[address] [id number] BY: BodyGuardzRunnells Specialized HospitalQvwcep1817 [facility] [id number] Lymphocytes (Bld) [#/Vol] 1.8 10*3/uL Normal 0.7-3.1 [facility]; [facility] Work Phone: Comment on above: Test(s) 851903-AFK-W ; 304640-TIK-Q; 905683-Lcpcozxvhuczc; 598343-Trxtdiimijz, Total; 784989-GJO-F (Total); 896688-Amqfe LDL-P; 517361-ZAM Size; 927460-FY-LL Scorewas developed and its performance characteristics determinedby [employer]. It has not been cleared or approved by the Foodand Drug Administration.PATIENT WAS FASTINGPERFORMED BY: BodyGuardz[address] [id number] BY: Advanced Catheter TherapiesRunnells Specialized HospitalBnbxbo5103 [facility] [id number] Lymphocytes/100 WBC (Bld) 27 % Normal [facility]; [facility] Work Phone: Comment on above: Test(s) 506509-DWA-Z ; 219303-LUP-G; 171383-Flcxqrpfpmmos; 641366-Cprmnufyejh, Total; 012842-ONY-D (Total); 166332-Duaex LDL-P; 805064-RYI Size; 365710-KL-CV Scorewas developed and its performance characteristics determinedby [employer]. It has not been cleared or approved by the Foodand Drug Administration.PATIENT WAS FASTINGPERFORMED BY: AKAMON ENTERTAINMENT [address] [id number] BY: TrendBent6370 [facility] [id number] MCH (RBC) [Entitic mass] 29.7 pg Normal 26.6-33.0 [facility] Internal [facility]; [facility] Work Phone: Comment on above: Test(s) 934402-CDC-F ; 947414-AQZ-V; 799318-Acwkhcvpiuuij; 362297-Gkspzvungyx, Total; 477304-SHQ-H (Total); 654492-Fleuv LDL-P; 980389-VMI Size; 175861-CI-QZ Scorewas developed and its performance characteristics determinedby [employer]. It has not been cleared or approved by the Foodand Drug Administration.PATIENT WAS FASTINGPERFORMED BY: [employer] [id number] BY: Advanced Catheter TherapiesRunnells Specialized HospitalUmmjrq1143 [facility] [id number] MCHC (RBC) [Mass/Vol] 33.4 g/dL Normal 31.5-35.7 [facility] prehensive Internal Medicine; [facility] Work Phone: Comment on above: Test(s) 436571-DKQ-B ; 495798-BTW-V; 885935-Fgaoznmujlmza; 175568-Xnqygbdyrma, Total; 779399-UAZ-X (Total); 238753-Sqbkn LDL-P; 811652-ETK Size; 314970-ZL-FP Scorewas developed and its performance characteristics determinedby [employer]. It has not been cleared or approved by the Foodand Drug Administration.PATIENT WAS FASTINGPERFORMED BY: AKAMON ENTERTAINMENT [address] [id number] BY: BodyGuardz Tpoyud5613 Tam[place]o Barefoot NetworksAtrium Health Union [id number] MCV (RBC) [Entitic vol] 89 fL Normal 79-97 C omprehensive [facility]; [facility] Work Phone: Comment on above: Test(s) 564931-JSU-Q ; 745805-ODN-R; 209477-Xaaumpzgrwkji; 095964-Qttcijpcodm, Total; 050554-ZFS-Y (Total); 175379-Iyezk LDL-P; 683673-PGY Size; 349451-DZ-CV Scorewas developed and its performance characteristics determinedby [employer]. It has not been cleared or approved by the FoodInline.me Drug Administration.PATIENT WAS FASTINGPERFORMED BY: AKAMON ENTERTAINMENT [address] [id number] BY: [employer]70 [facility] [id number] Monocytes (Bld) [#/Vol] 0.6 {x10E3/uL} Normal 0.1-0.9 [facility]; [facility] Work Phone: Comment on above: Test(s) 025230-VNF-U ; 211928-VVH-G; 678487-Idvrrxvvvcajo; 782007-Naknmvovrhm, Total; 143436-ZXR-A (Total); 724094-Tfklr LDL-P; 615758-ZEV Size; 264259-ZM-ZG Scorewas developed and its performance characteristics determinedby [employer]. It has not been cleared or approved by the Foodand Drug Administration.PATIENT WAS FASTINGPERFORMED BY: AKAMON ENTERTAINMENT [address] [id number] BY: Bioceros70 [facility] [id number] Monocytes (Bld) [#/Vol] 0.6 10*3/uL Normal 0.1-0.9 [facility]; [facility] Work Phone: Comment on above: Test(s) 663311-QFS-F ; 783618-KXT-S; 402909-Oitxowwakdnxo; 698631-Fsfkaljjzzo, Total; 650178-SRM-N (Total); 174446-Gqopp LDL-P; 178808-FMC Size; 302500-BR-DG Scorewas developed and its performance characteristics determinedby [employer]. It has not been cleared or approved by the Foodand Drug Administration.PATIENT WAS FASTINGPERFORMED BY: [employer] [id number] BY: TrendBent6370 [facility] [id number] Monocytes/100 WBC (Bld) 9 % Normal C [facility] Internal [facility]; [facility] Work Phone: Comment on above: Test(s) 849844-IAM-R ; 525207-WOS-W; 889416-Fnsymzqdkoiln; 289432-Cdxfzmrwksd, Total; 781179-PGI-E (Total); 370314-Xorak LDL-P; 400541-SHS Size; 503834-WQ-KI Scorewas developed and its performance characteristics determinedby [employer]. It has not been cleared or approved by the Foodand Drug Administration.PATIENT WAS FASTINGPERFORMED BY: AKAMON ENTERTAINMENT [address] [id number] BY: TrendBent6370 [facility] [id number] Neutrophils (Bld) [#/Vol] 4.0 {x10E3/uL} Normal 1.4-7.0 [facility]; [facility] Work Phone: Comment on above: Test(s) 896460-NHQ-E ; 441645-TLF-Y; 274999-Tytonvqofyhlv; 179810-Fvogoqstwct, Total; 728931-EGP-W (Total); 129515-Hvjpz LDL-P; 328087-YYC Size; 375467-YO-DP Scorewas developed and its performance characteristics determinedby [employer]. It has not been cleared or approved by the Foodand Drug Administration.PATIENT WAS FASTINGPERFORMED BY: AKAMON ENTERTAINMENT [address] [id number] BY: Bioc[employer]70 [facility]oJohn [facility] [id number] Neutrophils (Bld) [#/Vol] 4.0 10*3/uL Normal 1.4-7.0 [facility]; [facility] Work Phone: Comment on above: Test(s) 873779-UYQ-X ; 392107-NIQ-G; 208147-Drtcezbhvmsbp; 876648-Zajgdstpbdn, Total; 731426-TRN-H (Total); 529208-Lpxri LDL-P; 367601-XNK Size; 442956-JF-BA Scorewas developed and its performance characteristics determinedby [employer]. It has not been cleared or approved by the Foodand Drug Administration.PATIENT WAS FASTINGPERFORMED BY: AKAMON ENTERTAINMENT [address] [id number] BY: Bioceros70 DocASAPUNC Health Caldwell [id number] Neutrophils/100 WBC (Bld) 61 % Normal [facility]; [facility] Work Phone: Comment on above: Test(s) 236496-MRL-J ; 532088-CCX-S; 796092-Hrzzyctvmxezs; 342720-Htbncpeidwz, Total; 412802-FYS-T (Total); 876226-Xwwnw LDL-P; 949784-BQG Size; 629382-TK-OK Scorewas developed and its performance characteristics determinedby [employer]. It has not been cleared or approved by the Foodand Drug Administration.PATIENT WAS FASTINGPERFORMED BY: AKAMON ENTERTAINMENT [address] [id number] BY: TrendBent6370 [facility] [id number] Platelets (Bld) [#/Vol] 332 {x10E3/uL} Normal 150-450 [facility]; [facility] Work Phone: Comment on above: Test(s) 734825-PEV-B ; 966106-XBL-S; 257753-Qgexmcfcypbuf; 496464-Dpdegvkdqqb, Total; 964274-RXV-D (Total); 958456-Whiko LDL-P; 607086-RAO Size; 000153-XV-ZD Scorewas developed and its performance characteristics determinedby [employer]. It has not been cleared or approved by the Foodand Drug Administration.PATIENT WAS FASTINGPERFORMED BY: [employer] [id number] BY: Bioceros70 Tam[place]o [facility] [id number] Platelets (Bld) [#/Vol] 332 10*3/uL Normal 150-450 [facility]; [facility] Work Phone: Comment on above: Test(s) 721914-TSA-Z ; 340126-QBR-G; 230890-Pehvbjlbvlkcv; 092501-Ygavpaeduxj, Total; 664348-ESR-D (Total); 108028-Tbiwl LDL-P; 467141-NKC Size; 059486-IT-DB Scorewas developed and its performance characteristics determinedby [employer]. It has not been cleared or approved by the Foodand Drug Administration.PATIENT WAS FASTINGPERFORMED BY: [employer] [id number] BY: Bioceros70 [facility] [id number] RBC (Bld) [#/Vol] 4.64 {x10E6/uL} Normal 3.77-5.28 [facility] Internal Medicine; [facility] Work Phone: Comment on above: Test(s) 331528-QHL-H ; 333646-NGZ-U; 550585-Jhmxhaqljiggb; 976415-Fxrjkgdukbl, Total; 920365-GII-T (Total); 047003-Vvnez LDL-P; 465398-AML Size; 323462-SX-ZG Scorewas developed and its performance characteristics determinedby Lab250ok. It has not been cleared or approved by the Foodand Drug Administration.PATIENT WAS FASTINGPERFORMED BY: BodyGuardz[address] [id number] BY: BodyGuardzRunnells Specialized HospitalPxqnuj5392 [facility] [id number] RBC (Bld) [#/Vol] 4.64 10*6/uL Normal 3.77-5.28 [facility] ehensive Internal Medicine; [facility] Work Phone: Comment on above: Test(s) 640877-BTR-J ; 472887-RZY-D; 305968-Rcqbzlhmtkrvc; 874456-Pjkirhfmeef, Total; 336812-JPB-R (Total); 160582-Kweyq LDL-P; 278272-JJY Size; 463006-BQ-CH Scorewas developed and its performance characteristics determinedby Lab250ok. It has not been cleared or approved by the Foodand Drug Administration.PATIENT WAS FASTINGPERFORMED BY: HERMEL DELOR [address] [id number] BY: BodyGuardzRunnells Specialized HospitalWikrfz8009 [facility] [id number] WBC (Bld) [#/Vol] 6.6 {x10E3/uL} Normal 3.4-10.8 [facility]; [facility] Work Phone: Comment on above: Test(s) 288142-SAK-H ; 547529-PDB-U; 504799-Gaoufwoiyjkli; 080887-Rvtuzaiqjtz, Total; 922787-FCK-Q (Total); 290644-Cavis LDL-P; 813647-PNW Size; 628991-TZ-MI Scorewas developed and its performance characteristics determinedby [employer]. It has not been cleared or approved by the Foodand Drug Administration.PATIENT WAS FASTINGPERFORMED BY: BodyGuardz[address] [id number] BY: BodyGuardzRunnells Specialized HospitalUmtvgb7625 [facility] [id number] WBC (Bld) [#/Vol] 6.6 10*3/uL Normal 3.4-10.8 [facility] Internal Medicine; [facility] Work Phone: Comment on above: Test(s) 646072-YMN-O ; 625223-ICA-W; 924498-Zqylvulhczfoa; 435251-Txjolzdvcuu, Total; 497531-TUO-R (Total); 362595-Nkjwb LDL-P; 702377-WYO Size; 943883-JD-PE Scorewas developed and its performance characteristics determinedby [employer]. It has not been cleared or approved by the Foodand Drug Administration.PATIENT WAS FASTINGPERFORMED BY: [employer] [id number] BY: CYPHER Fpbppk0981 [facility] [id number] HGB A1C (72959)Ordered By: S ystem Tape Librarian on 05-01-2020 HbA1c (Bld) [Mass fraction] 6.1 % Abnormal 4.8-5.6 [facility]; [facility] Work Phone: Comment on above: . Prediabetes: 5.7 - 6.4 Diabetes: >6.4 Glycemic control for adults with diabetes: <7.0 do in 3mo ( may 19 210; Test(s) 357132-AME-Q; 688249-NDH-C; 319382-Aoajxvmpnexdw; 174778-Rdduhthqiec, Total; 973077-PEN-A (Total); 014378-Utwvv LDL-P; 262485-ASF Size; 184610-HV-EO Scorewas developed and its performance characteristics determinedby [employer]. It has not been cleared or approved by the Foodand Drug Administration.PATIENT WAS FASTINGPERFORMED BY: AKAMON ENTERTAINMENT [address] [id number] BY: CYPHER Daoepy8225 [facility] [id number] METABOLIC PANEL, COMPREHENSI VE (58536)Ordered By: Proctologist on 05-01-2020 Albumin [Mass/Vol] 4.2 g/dL Normal 3.8-4.8 [facility] Internal Medicine; [facility] Work Phone: Comment on above: Test(s) 299864-WNJ-Q ; 158887-GUM-U; 154462-Hukzvkzphlkwe; 660691-Bmnchzttqhr, Total; 935918-ZTH-V (Total); 535318-Vonbg LDL-P; 021754-DAS Size; 406729-NQ-AT Scorewas developed and its performance characteristics determinedby [employer]. It has not been cleared or approved by the Foodand Drug Administration.PATIENT WAS FASTINGPERFORMED BY: AKAMON ENTERTAINMENT [address] [id number] BY: Bioceros70 DocASAPUNC Health Caldwell [id number] Albumin/Globulin [Mass ratio] 1.4 {ratio} Normal 1.2-2.2 [facility] Internal Medicine; [facility] Internal Medicine Work Phone: Comment on above: Test(s) 230366-OGO-D ; 016022-OIC-M; 299918-Wcvvdnlylumcl; 867477-Bjsirjokujr, Total; 595213-CRT-I (Total); 558888-Cnjmf LDL-P; 258265-BGM Size; 955662-VB-YP Scorewas developed and its performance characteristics determinedby [employer]. It has not been cleared or approved by the Foodand Drug Administration.PATIENT WAS FASTINGPERFORMED BY: AKAMON ENTERTAINMENT [address] [id number] BY: TrendBent6370 [facility]oJohn [facility] [id number] ALP [Catalytic activity/Vol] 88 [iU]/L Normal 39-117 [facility] Internal Medicine; [facility] Internal Medicine Work Phone: Comment on above: Test(s) 175395-OCP-N ; 765899-JJS-E; 757916-Votxfibcfogwo; 058675-Hedbbsxwkmp, Total; 292974-LOX-M (Total); 206702-Jstln LDL-P; 741070-PIF Size; 744740-DJ-RA Scorewas developed and its performance characteristics determinedby [employer]. It has not been cleared or approved by the Foodand Drug Administration.PATIENT WAS FASTINGPERFORMED BY: [employer] [id number] BY: BodyGuardzRunnells Specialized HospitalRvhsgk9077 [facility] [id number] ALP [Catalytic activity/Vol] 88 U/L Normal 39-117 [facility]; [facility] Work Phone: Comment on above: Test(s) 137854-MZE-B ; 452177-KYW-N; 957531-Mdcjjjcvrblmw; 594348-Kvmsvooqpjk, Total; 150312-LJI-A (Total); 024304-Fgzca LDL-P; 541352-HWD Size; 036521-JV-AY Scorewas developed and its performance characteristics determinedby [employer]. It has not been cleared or approved by the [place] Drug Administration.PATIENT WAS FASTINGPERFORMED BY: AKAMON ENTERTAINMENT [address] [id number] BY: [employer] Hdfsvt7379 [facility] [id number] ALT [Catalytic activity/Vol] 19 [iU]/L Normal 0-32 [facility]; [facility] Work Phone: Comment on above: Test(s) 189667-RQE-Y ; 111325-GER-M; 209277-Poyhpxwpzpxph; 719069-Hxpvmleachq, Total; 998516-TLH-A (Total); 287316-Pscgx LDL-P; 087228-OGL Size; 027049-VE-VI Scorewas developed and its performance characteristics determinedby [employer]. It has not been cleared or approved by the Foodand Drug Administration.PATIENT WAS FASTINGPERFORMED BY: [employer] [id number] BY: Advanced Catheter TherapiesRunnells Specialized HospitalZpglzb8370 [facility] [id number] ALT [Catalytic activity/Vol] 19 U/L Normal 0-32 [facility]; [facility] Work Phone: Comment on above: Test(s) 156316-EEB-U ; 766077-CEU-S; 956407-Oqvrxbrvykfrr; 433149-Zozatzzoosh, Total; 365840-DOB-L (Total); 657992-Kouis LDL-P; 800932-SKT Size; 420154-AC-ON Scorewas developed and its performance characteristics determinedby [employer]. It has not been cleared or approved by the Foodand Drug Administration.PATIENT WAS FASTINGPERFORMED BY: BodyGuardz[address] [id number] BY: BodyGuardz TopguestAtrium Health Union [id number] AST [Catalytic activity/Vol] 13 [iU]/L Normal 0-40 [facility]; [facility] Work Phone: Comment on above: Test(s) 911468-ISS-J ; 198204-YIQ-X; 814197-Gvqinrlvjjjud; 854251-Sgiykwcpauw, Total; 256359-BPD-N (Total); 462768-Fgtej LDL-P; 015350-XPE Size; 100247-IJ-RF Scorewas developed and its performance characteristics determinedby [employer]. It has not been cleared or approved by the Foodand Drug Administration.PATIENT WAS FASTINGPERFORMED BY: BodyGuardz[address] [id number] BY: [employer]70 [employer] [id number] AST [Catalytic activity/Vol] 13 U/L Normal 0-40 [facility]; [facility] Work Phone: Comment on above: Test(s) 829396-EDU-E ; 131057-PUN-C; 402067-Vhjyfjbkbcpbb; 036739-Rbgsqvmcfon, Total; 667583-SGU-A (Total); 735401-Kshir LDL-P; 809403-HAQ Size; 983239-RR-XU Scorewas developed and its performance characteristics determinedby [employer]. It has not been cleared or approved by the Foodand Drug Administration.PATIENT WAS FASTINGPERFORMED BY: BodyGuardz[address] [id number] BY: [employer] Ofuoft0675 [employer]3[facility] [id number] Bilirubin [Mass/Vol] 0.2 mg/dL Normal 0.0-1.[address] [facility] [address] [facility]; [facility] Work Phone: Comment on above: Test(s) 989453-PPZ-W ; 182676-TAJ-K; 398547-Wsickvfgnxzvj; 161315-Jdjfcjgqebj, Total; 396069-GUR-U (Total); 914854-Sjyjy LDL-P; 580129-ILR Size; 816002-NZ-AQ Scorewas developed and its performance characteristics determinedby [employer]. It has not been cleared or approved by the Foodand Drug Administration.PATIENT WAS FASTINGPERFORMED BY: [employer] [id number] BY: [employer]oc[employer]70 [facility] [id number] Calcium [Mass/Vol] 9.8 mg/dL Normal 8.7-10.3 [facility] Internal Medicine; [facility] Work Phone: Comment on above: Test(s) 078680-UYC-J ; 499892-XNC-I; 120999-Tenddoujbtofk; 906190-Reybxlltpwk, Total; 719115-UVA-S (Total); 980427-Kqscs LDL-P; 759274-NYX Size; 046300-TX-NV Scorewas developed and its performance characteristics determinedby [employer]. It has not been cleared or approved by the Foodand Drug Administration.PATIENT WAS FASTINGPERFORMED BY: [employer] [id number] BY: CYPHER Pxslxb1660 [facility] [id number] Chloride [Moles/Vol] 101 mmol/L Normal 96-106 [facility] Internal Medicine; [facility] Work Phone: Comment on above: Test(s) 266313-WOV-K ; 486673-DCD-N; 352541-Wsdeoicikxryi; 881478-Gijfefkoxqa, Total; 509306-DUQ-E (Total); 037598-Ftbqb LDL-P; 177465-HWX Size; 584195-TS-FW Scorewas developed and its performance characteristics determinedby [employer]. It has not been cleared or approved by the Foodand Drug Administration.PATIENT WAS FASTINGPERFORMED BY: [employer] [address] [id number] BY: TrendBent6370 [facility] [id number] CO2 [Moles/Vol] 26 mmol/L Normal 20-29 [facility] Internal [facility]; [facility] Work Phone: Comment on above: Test(s) 527731-GZK-P ; 114635-CSR-R; 853167-Srmxsliupwxhq; 746617-Hhdpczguytf, Total; 152196-TRP-X (Total); 221694-Nihsj LDL-P; 355471-RBF Size; 464092-ML-WK Scorewas developed and its performance characteristics determinedby [employer]. It has not been cleared or approved by the Foodand Drug Administration.PATIENT WAS FASTINGPERFORMED BY: [employer] [id number] BY: TrendBent6370 [facility] [id number] Creatinine [Mass/Vol] 0.76 mg/dL Normal 0.57-1.00 [facility] Internal Medicine; [facility] Work Phone: Comment on above: Test(s) 185706-WVS-T ; 160035-KMO-F; 167677-Uxkvfdqviwmjq; 873086-Rmeudwyuaxq, Total; 908266-AXV-E (Total); 710381-Dyybd LDL-P; 312457-QRX Size; 960163-II-AW Scorewas developed and its performance characteristics determinedby [employer]. It has not been cleared or approved by the Foodand Drug Administration.PATIENT WAS FASTINGPERFORMED BY: [employer] [address] [id number] BY: TrendBent6370 [facility] [id number] GFR/1.73 sq M predicted among blacks CKD-EPI (S/P/Bld) [Vol rate/Area] 93 mL/min/1.73 Normal [facility]; [facility] Work Phone: Comment on above: Test(s) 986595-HJT-K ; 075591-WOM-X; 920739-Utmrrjkhhrisb; 722896-Okiddipwtuc, Total; 544962-XIL-F (Total); 086632-Rkiai LDL-P; 238018-ONF Size; 304420-AO-HV Scorewas developed and its performance characteristics determinedby [employer]. It has not been cleared or approved by the Foodand Drug Administration.PATIENT WAS FASTINGPERFORMED BY: [employer] [id number] BY: [employer] [facility] [id number] GFR/1.73 sq M predicted among non-blacks CKD-EPI (S/P/Bld) [Vol rate/Area] 81 mL/min/1.73 Normal [facility]; [facility] Work Phone: Comment on above: Test(s) 870641-VNK-E ; 502104-JGY-B; 552695-Liwrzdtrbdscn; 365983-Txhffvjcfxc, Total; 402055-CTI-R (Total); 357183-Tmxlb LDL-P; 204714-LLU Size; 985282-XO-OF Scorewas developed and its performance characteristics determinedby [employer]. It has not been cleared or approved by the Foodand Drug Administration.PATIENT WAS FASTINGPERFORMED BY: [employer] [id number] BY: CYPHER Nxbwlf3489 [facility] [id number] Globulin (S) [Mass/Vol] 2.9 g/dL Normal 1.5-4.5 C omprehensive Internal Medicine; [facility] Work Phone: Comment on above: Test(s) 243454-OSV-B ; 970868-WAS-O; 254864-Vhhfedhndqowu; 951979-Hipurwgzfoa, Total; 980069-MPQ-C (Total); 302208-Tvihn LDL-P; 996005-UBY Size; 500840-MT-UI Scorewas developed and its performance characteristics determinedby [employer]. It has not been cleared or approved by the Foodand Drug Administration.PATIENT WAS FASTINGPERFORMED BY: AK[employer]TERTAIN[employer] [address] [id number] BY: TrendBent6370 [facility] [id number] Glucose [Mass/Vol] 115 mg/dL Abnormal 65-99 [facility] Internal Medicine; [facility] Work Phone: Comment on above: Test(s) 916350-EYV-C ; 450218-ZQC-N; 552869-Qkywfkzcwbnls; 197919-Rwglvgbgufa, Total; 145881-KBX-E (Total); 838582-Uirts LDL-P; 504054-CQU Size; 559908-DU-FT Scorewas developed and its performance characteristics determinedby [employer]. It has not been cleared or approved by the Foodand Drug Administration.PATIENT WAS FASTINGPERFORMED BY: AK[employer]TER[employer] [address] [id number] BY: TrendBent6370 [place] Barefoot NetworksAtrium Health Union [id number] Potassium [Moles/Vol] 4.5 mmol/L Normal 3.5-5.2 [facility] Internal Medicine; [facility] Work Phone: Comment on above: Test(s) 221952-HVZ-R ; 390928-YUS-D; 748079-Pehjhssvqxzgg; 282848-Oqxqxxdlbat, Total; 654712-JFF-H (Total); 233685-Uqlmc LDL-P; 115592-ANQ Size; 308081-YI-KI Scorewas developed and its performance characteristics determinedby [employer]. It has not been cleared or approved by the Foodand Drug Administration.PATIENT WAS FASTINGPERFORMED BY: [employer] [address] [id number] BY: TrendBent6370 [facility] [id number] Protein [Mass/Vol] 7.1 g/dL Normal 6.0-8.5 [facility] Internal Medicine; [facility] Work Phone: Comment on above: Test(s) 060694-BNL-X ; 018369-PGW-E; 682187-Eoalxmkxfjmqf; 090483-Hlefyyzkacx, Total; 518912-OWO-Q (Total); 809250-Szhzq LDL-P; 281605-EBR Size; 189180-PU-ZA Scorewas developed and its performance characteristics determinedby [employer]. It has not been cleared or approved by the Foodand Drug Administration.PATIENT WAS FASTINGPERFORMED BY: [employer] [address] [id number] BY: Bioceros70 [employer] [id number] Sodium [Moles/Vol] 140 mmol/L Normal 134-144 [facility] Internal Medicine; [facility] Work Phone: Comment on above: Test(s) 508677-TFT-K ; 661525-SQT-Q; 072679-Xowjqyzklfhey; 734686-Siaozepvtin, Total; 370483-XYD-Z (Total); 858707-Ptceq LDL-P; 093112-ZNT Size; 353375-JQ-CJ Scorewas developed and its performance characteristics determinedby [employer]. It has not been cleared or approved by the Foodand Drug Administration.PATIENT WAS FASTINGPERFORMED BY: [employer] [address] [id number] BY: Bioceros70 [employer]3[facility] [id number] Urea nitrogen [Mass/Vol] 14 mg/dL Normal 8-27 [facility]; [facility] Work Phone: Comment on above: Test(s) 275280-CLQ-H ; 018306-HQG-E; 683919-Sdqelmfmtawhf; 652164-Obpfabahgof, Total; 778461-OMP-Y (Total); 820905-Dkimo LDL-P; 997025-VDE Size; 981898-KB-GU Scorewas developed and its performance characteristics determinedby [employer]. It has not been cleared or approved by the Foodand Drug Administration.PATIENT WAS FASTINGPERFORMED BY: Amulaire Thermal Technologyton1447 [facility] [id number] BY: Bioceros70 [employer]3[facility] [id number] Urea nitrogen/Creatinine [Mass ratio] 18 mg/mg Normal 12-28 [facility]; [facility] Work Phone: Comment on above: Test(s) 858721-HFX-O ; 749441-NCE-B; 760816-Ktqysbayhyret; 182115-Wdkyuylrlju, Total; 927147-IOD-R (Total); 725903-Szxoh LDL-P; 930636-JBX Size; 635079-PE-AQ Scorewas developed and its performance characteristics determinedby [employer]. It has not been cleared or approved by the Foodand Drug Administration.PATIENT WAS FASTINGPERFORMED BY: Amulaire Thermal Technologyton1447 [facility] [id number] BY: TrendBent6370 [employer] [id number] MICROALBUMINOrdered By: Syst em Tape Librarian on 05-01-2020 Albumin DL <= 20 mg/L (U) [Mass/Vol] 15.9 ug/mL Normal [facility]; [facility] Work Phone: Comment on above: Test(s) 781166-UJH-L ; 219237-XMF-T; 087342-Zcxgrmkcduiyy; 214617-Qcuwdikkbco, Total; 277585-VMY-L (Total); 098706-Hedhy LDL-P; 548614-XAD Size; 532427-AK-KM Scorewas developed and its performance characteristics determinedby [employer]. It has not been cleared or approved by the Foodand Drug Administration.PATIENT WAS FASTINGPERFORMED BY: [employer] Technology[address] [id number] BY: TrendBent6370 [place] Syn[facility] MedicalUNC Health Caldwell [id number] Albumin/Creatinine (U) [Mass ratio] 49 {mg/g_creat} Abnormal 0-29 [facility]; [facility] Work Phone: Comment on above: Normal: 0 - 29 Moder ately increased: 30 - 300 Severely increased: >300 Test(s) 532403-HGI-K ; 942247-ODL-V; 952687-Fjdycsgtdyopv; 542671-Sievkkplqqy, Total; 377744-KSM-J (Total); 796858-Ztges LDL-P; 276682-BGR Size; 789434-JW-DW Scorewas developed and its performance characteristics determinedby [employer]. It has not been cleared or approved by the Foodand Drug Administration.PATIENT WAS FASTINGPERFORMED BY: [employer] [id number] BY: Innovational FundingAtrium Health Union [id number] Creatinine (U) [Mass/Vol] 32.3 mg/dL Normal [facility]; [facility] Work Phone: Comment on above: Test(s) 147306-OXO-K ; 970044-GWJ-R; 316548-Zmbmlodsaithh; 875231-Uulmtwlishf, Total; 054134-XPB-W (Total); 941621-Lodao LDL-P; 571730-IOW Size; 555269-KV-OG Scorewas developed and its performance characteristics determinedby [employer]. It has not been cleared or approved by the Foodand Drug Administration.PATIENT WAS FASTINGPERFORMED BY: [employer] [address] [id number] BY: TrendBent6370 [facility]John [facility] [id number] NMR Profile (62404)Ordered B y: Proctologist on 05-01-2020 Cholesterol [Mass/Vol] 178 mg/dL Normal 100-199 [facility] Internal [facility]; [facility] Work Phone: Comment on above: Test(s) 697064-KTW-K ; 906214-BBQ-P; 522316-Evsgjofcstrwy; 144965-Plrsemqakml, Total; 781897-VIF-P (Total); 724870-Mjyie LDL-P; 283518-BMJ Size; 975787-CP-PL Scorewas developed and its performance characteristics determinedby [employer]. It has not been cleared or approved by the Foodand Drug Administration.PATIENT WAS FASTINGPERFORMED BY: [employer] [address] [id number] BY: [employer]6370 [facility] [id number] Lipoprotein.alpha [Moles/Vol] 45.9 umol/L Normal [facility] Internal Medicine; [facility] Work Phone: Comment on above: Test(s) 452903-BUZ-O ; 780778-MFK-R; 506690-Paxxtookqwrar; 498169-Yuzabidfvhq, Total; 938016-DXU-F (Total); 584714-Gagcs LDL-P; 930581-JDL Size; 545212-MB-NN Scorewas developed and its performance characteristics determinedby [employer]. It has not been cleared or approved by the Foodand Drug Administration.PATIENT WAS FASTINGPERFORMED BY: [employer] [address] [id number] BY: CYPHER Ejgqul6190 [facility] [id number] Lipoprotein.beta.subpar ticle [Entitic length] 21.1 nm Normal [facility] Internal [facility]; [facility] Work Phone: [...] <-Small (Pattern B)-> 23.0 20.6 20.5 19.0 Smal l LDL-P and LDL Size are associated with CVD risk, but not afterLDL-P is taken into account. Test(s) 334749-AIG-A ; 373794-FYE-C; 993443-Jbwescufgamdy; 632146-Khfqjrhqvnj, Total; 807656-QLR-A (Total); 990170-Nedyi LDL-P; 343991-SBU Size; 747006-NB-NF Scorewas developed and its performance characteristics determinedby [employer]. It has not been cleared or approved by the Foodand Drug Administration.PATIENT WAS FASTINGPERFORMED BY: [employer] [id number] BY: Innovational FundingAtrium Health Union [id number] Lipoprotein.beta.subpar ticle [Moles/Vol] 1015 nmol/L Abnormal [facility]; [facility] Work Phone: Comment on above: Low < 1000 Moderate 1000 - 1299 Borderline-High 1300 - 1599 High 1600 - 2000 Very High > 2000 Test(s) 964516-EBE-A ; 953079-POJ-Z; 943206-Gmhqyuwqkonyg; 012113-Bjhesjddzvu, Total; 928186-UMK-M (Total); 031838-Pfykh LDL-P; 596209-BHR Size; 184834-BQ-QU Scorewas developed and its performance characteristics determinedby [employer]. It has not been cleared or approved by the Foodand Drug Administration.PATIENT WAS FASTINGPERFORMED BY: [employer] [address] [id number] BY: ViCloneUNC Health Caldwell [id number] Lipoprotein.beta.subpar ticle.small [Moles/Vol] 405 nmol/L Normal Comprehe nsive Internal Medicine; [facility] Work Phone: Comment on above: Test(s) 499789-RIR-Y ; 964806-OZX-J; 468415-Isegmuuvnmkks; 328784-Zaxwqctmbds, Total; 950772-XCQ-R (Total); 575190-Mvtel LDL-P; 114229-TBP Size; 841827-RT-FQ Scorewas developed and its performance characteristics determinedby [employer]. It has not been cleared or approved by the Foodand Drug Administration.PATIENT WAS FASTINGPERFORMED BY: [employer] [address] [id number] BY: Bioceros70 [facility] [id number] Triglyceride [Mass/Vol] 116 mg/dL Normal 0-149 C ompselect [facility]ensive Internal [facility]; [facility] Work Phone: Comment on above: Test(s) 156090-QIZ-F ; 799089-RYF-F; 401237-Vpvratfbsrfgu; 216198-Xdzprvrjryx, Total; 387892-HLU-F (Total); 531230-Dhehc LDL-P; 129873-JAE Size; 833793-LB-EE Scorewas developed and its performance characteristics determinedby [employer]. It has not been cleared or approved by the Foodand Drug Administration.PATIENT WAS FASTINGPERFORMED BY: [employer] [id number] BY: TrendBent6370 [facility] [id number] NMR Profile (61639) 73 mg/dL Normal Compr ehensive Internal Medicine; [facility] Work Phone: Comment on above: Test(s) 547683-ZKD-T ; 966518-OSQ-I; 013770-Lohzkziiiiaes; 910663-Vgvhuheicfb, Total; 155608-CVC-O (Total); 337983-Natuo LDL-P; 888330-LZF Size; 192614-QU-KS Scorewas developed and its performance characteristics determinedby [employer]. It has not been cleared or approved by the Foodand Drug Administration.PATIENT WAS FASTINGPERFORMED BY: [employer] [address] [id number] BY: Bioceros70 [facility]ayoJohn J. Pershing [facility] [id number] NMR Profile (97040) 85 mg/dL Normal 0-99 Compr ehensive Internal Medicine; [facility] Work Phone: Comment on above: . Optimal < 100 Abov e optimal 100 - 129 Borderline 130 - 159 High 160 - 189 Very high > 189 . Test(s) 325274-YQL-D ; 806452-XRV-P; 303605-Cgsqxnbmrcwjb; 718409-Askdrtobcxl, Total; 959981-YRQ-H (Total); 874018-Dltvp LDL-P; 104350-KCV Size; 894142-GK-JH Scorewas developed and its performance characteristics determinedby [employer]. It has not been cleared or approved by the Foodand Drug Administration.PATIENT WAS FASTINGPERFORMED BY: Buz [facility] [id number] BY: Bioceros70 Opt[employer]3[facility] [id number] TSH (THYROID STIMULATING HOR JOHN) (69592)Ordered By: Proctologist on 05-01-2020 TSH Qn 0.514 {uIU/mL} Normal 0.450-4.500 Comprehen [facility] Internal Medicine; [facility] Work Phone: Comment on above: Test(s) 020351-ZVQ-S ; 098572-IGZ-F; 171276-Sisvfgecdrxvh; 589088-Murqwqwhwpf, Total; 779912-AFO-I (Total); 266343-Ybryh LDL-P; 793391-FWC Size; 361511-QH-FQ Scorewas developed and its performance characteristics determinedby [employer]. It has not been cleared or approved by the Foodand Drug Administration.PATIENT WAS FASTINGPERFORMED BY: Amulaire Thermal Technologyton1447 [facility] [id number] BY: TrendBent6370 [facility] [id number] EVELINE (ANTINUCLEAR ANTIBODY) ( 31665)Ordered By: Proctologist on 02-08-2020 Nuclear Ab Ql (S) Negative Normal Compreh ensive Internal Medicine; [facility] Work Phone: Comment on above: Test(s) 250684-Spoyw ic, Blood; 841776-Ympgfet, Blood; 205422-Jbkgayq, Bloodwas developed and its performance characteristics determinedby HERMEL DELOR. It has not been cleared or approved by the Foodand Drug Administration.PATIENT NOT FASTINGPERFORMED BY: AK[employer] [address] [id number] BY: [employer] [place] [id number] Nuclear Ab Ql (S) Negative Normal Compreh ensive Internal Medicine; [facility] Work Phone: Comment on above: Test(s) 484000-Nebtg ic, Blood; 339808-Hxcwxdt, Blood; 499795-Fnzbspz, Bloodwas developed and its performance characteristics determinedby HERMEL DELOR. It has not been cleared or approved by the Foodand Drug Administration.PATIENT NOT FASTINGPERFORMED BY: AK[employer] [address] [id number] BY: Bioceros70 [employer]3[facility] [id number] CBC & PLATELETS (AUTO) (8502 7)Ordered By: Proctologist on 02-08-2020 Erythrocyte distribution width (RBC) [Ratio] 12.5 % Normal 11.7-15.4 [facility]; [facility] Work Phone: Comment on above: Test(s) 433110-Zgfha ic, Blood; 793176-Pusihpi, Blood; 838436-Qmsettv, Bloodwas developed and its performance characteristics determinedby HERMEL DELOR. It has not been cleared or approved by the Foodand Drug Administration.PATIENT NOT FASTINGPERFORMED BY: [employer] [address] [id number] BY: Bioceros70 [employer]3[facility] [id number] Hematocrit (Bld) [Volume fraction] 39.1 % Normal 34.0-46.6 [facility]; [facility] Work Phone: Comment on above: Test(s) 637040-Ijhxq ic, Blood; 513691-Nniryop, Blood; 489142-Zfcvkdl, Bloodwas developed and its performance characteristics determinedby HERMEL DELOR. It has not been cleared or approved by the Foodand Drug Administration.PATIENT NOT FASTINGPERFORMED BY: BodyGuardz[address] [id number] BY: BodyGuardzRunnells Specialized HospitalFtwnqw6831 [place] Syntilla MedicalUNC Health [facility] [id number] Hemoglobin (Bld) [Mass/Vol] 12.8 g/dL Normal 11.1-15.9 [facility] Internal Medicine; [facility] Work Phone: Comment on above: Test(s) 420434-Saxgl ic, Blood; 698462-Qcqfkal, Blood; 956528-Hbaipon, Bloodwas developed and its performance characteristics determinedby HERMEL DELOR. It has not been cleared or approved by the Foodand Drug Administration.PATIENT NOT FASTINGPERFORMED BY: BodyGuardz[address] [id number] BY: BodyGuardzRunnells Specialized HospitalQroevu4990 [facility] [id number] MCH (RBC) [Entitic mass] 29.2 pg Normal 26.6-33.0 [facility] Internal Medicine; [facility] Work Phone: Comment on above: Test(s) 564349-Sqpxp ic, Blood; 565214-Bxbgucv, Blood; 189111-Ltblyyl, Bloodwas developed and its performance characteristics determinedby HERMEL DELOR. It has not been cleared or approved by the Foodand Drug Administration.PATIENT NOT FASTINGPERFORMED BY: BodyGuardz[address] [id number] BY: BodyGuardzRunnells Specialized HospitalFnlqbq8482 [facility] [id number] MCHC (RBC) [Mass/Vol] 32.7 g/dL Normal 31.5-35.7 [facility] prehensive Internal Medicine; [facility] Work Phone: Comment on above: Test(s) 563299-Mzwrn ic, Blood; 063294-Dulbivt, Blood; 361859-Ggdpnrz, Bloodwas developed and its performance characteristics determinedby HERMEL DELOR. It has not been cleared or approved by the Foodand Drug Administration.PATIENT NOT FASTINGPERFORMED BY: BodyGuardz[address] [id number] BY: BodyGuardzRunnells Specialized HospitalQqyjou2021 [facility] [id number] MCV (RBC) [Entitic vol] 89 fL Normal 79-97 C omprehensive Internal Medicine; [facility] Work Phone: Comment on above: Test(s) 806179-Wiwvj ic, Blood; 607819-Mewcxje, Blood; 044511-Lultwym, Bloodwas developed and its performance characteristics determinedby [employer]. It has not been cleared or approved by the Foodand Drug Administration.PATIENT NOT FASTINGPERFORMED BY: BodyGuardzrp [address] [id number] BY: BodyGuardzRunnells Specialized HospitalCgvhbm7697 [facility]oJohn J. Pershing [facility] [id number] Platelets (Bld) [#/Vol] 359 {x10E3/uL} Normal 150-450 [facility]; [facility] Work Phone: Comment on above: Test(s) 527604-Fnyda ic, Blood; 899441-Cgircdb, Blood; 975180-Tyvmjku, Bloodwas developed and its performance characteristics determinedby [employer]. It has not been cleared or approved by the Foodand Drug Administration.PATIENT NOT FASTINGPERFORMED BY: BodyGuardz[address] [id number] BY: BodyGuardzRunnells Specialized HospitalCllhcw0806 [facility] [id number] Platelets (Bld) [#/Vol] 359 10*3/uL Normal 150-450 [facility]; [facility] Work Phone: Comment on above: Test(s) 880528-Yydni ic, Blood; 693634-Mtngvip, Blood; 122710-Nlfsyon, Bloodwas developed and its performance characteristics determinedby [employer]. It has not been cleared or approved by the Foodand Drug Administration.PATIENT NOT FASTINGPERFORMED BY: BodyGuardz[address] [id number] BY: BodyGuardzRunnells Specialized HospitalAwrcao0876 [facility] [id number] RBC (Bld) [#/Vol] 4.39 {x10E6/uL} Normal 3.77-5.28 [facility] Internal Medicine; [facility] Work Phone: Comment on above: Test(s) 205324-Usaix ic, Blood; 232815-Bqeyruk, Blood; 135640-Lfsjpjg, Bloodwas developed and its performance characteristics determinedby LabAllegiance Health Foundation. It has not been cleared or approved by the Foodand Drug Administration.PATIENT NOT FASTINGPERFORMED BY: BodyGuardz[address] [id number] BY: BodyGuardzBrandon [place] 5389670 [facility] [id number] RBC (Bld) [#/Vol] 4.39 10*6/uL Normal 3.77-5.28 [facility] Internal [facility] [place]; [facility] Work Phone: Comment on above: Test(s) 176565-Vwrfh ic, Blood; 722665-Lfwpjwe, Blood; 952326-Tchhkyl, Bloodwas developed and its performance characteristics determinedby [employer]. It has not been cleared or approved by the Foodand Drug Administration.PATIENT NOT FASTINGPERFORMED BY: BodyGuardz[address] [id number] BY: BodyGuardzBrandon [place] 5389670 [facility] [id number] WBC (Bld) [#/Vol] 6.3 {x10E3/uL} Normal 3.4-10.8 [facility] Internal Medicine; [facility] Work Phone: Comment on above: Test(s) 822508-Bsezx ic, Blood; 322985-Spquuhl, Blood; 552847-Plpethz, Bloodwas developed and its performance characteristics determinedby LabAllegiance Health Foundation. It has not been cleared or approved by the Foodand Drug Administration.PATIENT NOT FASTINGPERFORMED BY: BodyGuardz[address] [id number] BY: [facility] CenterAllegiance Health FoundationBrandon Ville 5389670 [facility] [id number] WBC (Bld) [#/Vol] 6.3 10*3/uL Normal 3.4-10.8 [facility] Internal Medicine; [facility] Work Phone: Comment on above: Test(s) 540008-Pvzig ic, Blood; 431507-Tjcslir, Blood; 340692-Spxnxqa, Bloodwas developed and its performance characteristics determinedby HERMEL DELOR. It has not been cleared or approved by the Foodand Drug Administration.PATIENT NOT FASTINGPERFORMED BY: [employer] [address] [id number] BY: Bioceros70 [employer]3[facility] [id number] HEAVY METAL SCREEN (64517)Or dered By: Proctologist on 02-08-2020 Arsenic (Bld) [Mass/Vol] 6 ug/L Normal 2-23 [facility]; [facility] Work Phone: Comment on above: Detection Limit = 1 Test(s) 139198-Ijkyw ic, Blood; 325289-Gigldwz, Blood; 473121-Wqusobz, Bloodwas developed and its performance characteristics determinedby HERMEL DELOR. It has not been cleared or approved by the Foodand Drug Administration.PATIENT NOT FASTINGPERFORMED BY: [employer] [address] [id number] BY: HERMEL DELOR Ifqsdw4729 TamayoJohn J. Pershing [facility] [id number] Cadmium (Bld) [Mass/Vol] <0.5 Normal 0.0-1.2 [facility]; [facility] Work Phone: Comment on above: Environmental Exposu re: Nonsmokers 0.3 - 1.2 Smokers 0.6 - 3.9 Occupational Exposure: OSHA Cadmium Std 5.0 RAJANI 5.0 . Detection Limit = 0.5 Test(s) 034190-Aideo ic, Blood; 085966-Iwdxuea, Blood; 927452-Hlcodka, Bloodwas developed and its performance characteristics determinedby HERMEL DELOR. It has not been cleared or approved by the Foodand Drug Administration.PATIENT NOT FASTINGPERFORMED BY: [address] [id number] BY: [facility]6370 [facility] [id number] Lead (Bld) [Mass/Vol] ug/dL Normal 0-4 [facility] prehensive Internal Medicine; [facility] Work Phone: Comment on above: Testing performed by Inductively coupled plasma/Mass Spectrometry. Environmental Exposure: WHO Recommendation <20 Occupational Exposure: OSHA Lead Std 40 RAJANI 30 . Detection Limit = 1 . This test was developed and its performance characteristics determined by HERMEL DELOR. It has not been cleared or approved by the Food and Drug Administration. Test(s) 984285-Moqmx ic, Blood; 732283-Rzkzzpw, Blood; 813921-Qzaujjh, Bloodwas developed and its performance characteristics determinedby HERMEL DELOR. It has not been cleared or approved by the Foodand Drug Administration.PATIENT NOT FASTINGPERFORMED BY: BodyGuardz[address] [id number] BY: [facility] CenterAllegiance Health FoundationRunnells Specialized HospitalHqndlu7491 [facility] [id number] Lead (Bld) [Mass/Vol] ug/dL Normal 0-4 [facility] prehensive Internal Medicine; [facility] Work Phone: Comment on above: Testing performed by Inductively coupled plasma/Mass Spectrometry. Environmental Exposure: WHO Recommendation <20 Occupational Exposure: OSHA Lead Std 40 RAJANI 30 . Detection Limit = 1 . This test was developed and its performance characteristics determined by HERMEL DELOR. It has not been cleared or approved by the Food and Drug Administration. Test(s) 600978-Ivfvw ic, Blood; 130846-Xjznfqx, Blood; 151224-Zjdkhew, Bloodwas developed and its performance characteristics determinedby HERMEL DELOR. It has not been cleared or approved by the Foodand Drug Administration.PATIENT NOT FASTINGPERFORMED BY: Lab[address] [id number] BY: [facility] Medical CenterCoRunnells Specialized HospitalAyltmh8260 [facility] [id number] Mercury (Bld) [Mass/Vol] <1.0 Normal 0.0-14.9 [facility]; [facility] Work Phone: Comment on above: Environmental Exposu re: <15.0 Occupational Exposure: RAJANI - Inorganic Mercury: 15.0 . Detection Limit = 1.0 Test(s) 613764-Cyzsh ic, Blood; 756516-Kyvykzh, Blood; 996879-Tbodpun, Bloodwas developed and its performance characteristics determinedby HERMEL DELOR. It has not been cleared or approved by the Foodand Drug Administration.PATIENT NOT FASTINGPERFORMED BY: BodyGuardz[address] [id number] BY: BodyGuardzRunnells Specialized HospitalHvdxqs57[address] [place] [address] [id number] HEPATITIS C ANTIBODY (27792) Ordered By: Proctologist on 02-08-2020 HCV Ab Signal/Cutoff IA [Rel units/Vol] {ratio} Normal 0.0-0.9 [facility]; [facility] Work Phone: Comment on above: Negative: < 0.8 Inde terminate: 0.8 - 0.9 Positive: > 0.9 . The CDC recommends that a positive HCV antibody result be followed up with a HCV Nucleic Acid Amplification test (935030). Test(s) 963029-Ehzsk ic, Blood; 027342-Xmufmhm, Blood; 363505-Kpnrski, Bloodwas developed and its performance characteristics determinedby HERMEL DELOR. It has not been cleared or approved by the Foodand Drug Administration.PATIENT NOT FASTINGPERFORMED BY: BodyGuardz[address] [id number] BY: BodyGuardzRunnells Specialized HospitalMqsacy6693 [facility] [id number] HCV Ab Signal/Cutoff IA [Rel units/Vol] {ratio} Normal 0.0-0.9 [facility]; [facility] Work Phone: Comment on above: Negative: < 0.8 Inde terminate: 0.8 - 0.9 Positive: > 0.9 . The CDC recommends that a positive HCV antibody result be followed up with a HCV Nucleic Acid Amplification test (814307). Test(s) 280939-Uxjyy ic, Blood; 650187-Bcbecko, Blood; 898999-Iwdeamm, Bloodwas developed and its performance characteristics determinedby HERMEL DELOR. It has not been cleared or approved by the Foodand Drug Administration.PATIENT NOT FASTINGPERFORMED BY: HERMEL DELOR [address] [id number] BY: Body[employer] Rizbvh3666 Tamayo Roadblin [place] [id number] HGB A1C (30719)Ordered By: Matt Bernard on 02-08-2020 HbA1c (Bld) [Mass fraction] 5.7 % Normal 4.6 - 7.1 [facility]; [facility] Work Phone: Comment on above: do now METABOLIC PANEL, COMPREHENSI VE (31212)Ordered By: Proctologist on 02-08-2020 Albumin [Mass/Vol] 4.3 g/dL Normal 3.8-4.8 [facility]; [facility] Work Phone: Comment on above: Test(s) 558004-Pzmwg ic, Blood; 297562-Uypmoys, Blood; 948815-Qkyklbi, Bloodwas developed and its performance characteristics determinedby HERMEL DELOR. It has not been cleared or approved by the Foodand Drug Administration.PATIENT NOT FASTINGPERFORMED BY: [employer]ON [employer] [address] [id number] BY: [employer]6370 [address] Syntilla MedicalUNC Health Caldwell [id number] Albumin/Globulin [Mass ratio] 1.6 {ratio} Normal 1.2-2.2 [facility]; [facility] Work Phone: Comment on above: Test(s) 431374-Uzohq ic, Blood; 824868-Jvblbxx, Blood; 067016-Tfjidot, Bloodwas developed and its performance characteristics determinedby HERMEL DELOR. It has not been cleared or approved by the Foodand Drug Administration.PATIENT NOT FASTINGPERFORMED BY: HERMEL DELOR [address] [id number] BY: HERMEL DELOR Ofvxxa1183 [address] [facility] CenterDublin [place] [id number] ALP [Catalytic activity/Vol] 88 [iU]/L Normal 39-117 [facility]; [facility] Work Phone: Comment on above: Test(s) 793693-Xdctp ic, Blood; 088127-Vwabccc, Blood; 385842-Aviuiex, Bloodwas developed and its performance characteristics determinedby HERMEL DELOR. It has not been cleared or approved by the Foodand Drug Administration.PATIENT NOT FASTINGPERFORMED BY: HERMEL DELOR [address] [id number] BY: [employer] [address] Syntilla MedicalUNC [facility] [id number] ALP [Catalytic activity/Vol] 88 U/L Normal 39-117 [facility]; [facility] Work Phone: Comment on above: Test(s) 083973-Arskn ic, Blood; 372740-Eketdvm, Blood; 237496-Jdrvhdt, Bloodwas developed and its performance characteristics determinedby HERMEL DELOR. It has not been cleared or approved by the Foodand Drug Administration.PATIENT NOT FASTINGPERFORMED BY: BodyGuardz[address] [id number] BY: [employer] Sbarmt3536 Optimus3[facility] [id number] ALT [Catalytic activity/Vol] 17 [iU]/L Normal 0-32 [facility]; [facility] Work Phone: Comment on above: Test(s) 901835-Bdxss ic, Blood; 712722-Dvbvfjh, Blood; 222944-Iudgvec, Bloodwas developed and its performance characteristics determinedby HERMEL DELOR. It has not been cleared or approved by the Foodand Drug Administration.PATIENT NOT FASTINGPERFORMED BY: BodyGuardz[address] [id number] BY: [employer] Nlhdar9476 [address] Syntilla MedicalUNC [facility] [id number] ALT [Catalytic activity/Vol] 17 U/L Normal 0-32 [facility]; [facility] Work Phone: Comment on above: Test(s) 581680-Rhccw ic, Blood; 582345-Umzogka, Blood; 617597-Hhyqhms, Bloodwas developed and its performance characteristics determinedby LabAllegiance Health Foundationrp. It has not been cleared or approved by the Foodand Drug Administration.PATIENT NOT FASTINGPERFORMED BY: [address] [id number] BY: [facility]6370 [facility] [id number] AST [Catalytic activity/Vol] 18 [iU]/L Normal 0-40 [facility]; [facility] Work Phone: Comment on above: Test(s) 516989-Zwgez ic, Blood; 696156-Lbpfxoe, Blood; 442332-Muvcvjr, Bloodwas developed and its performance characteristics determinedby [employer]. It has not been cleared or approved by the Foodand Drug Administration.PATIENT NOT FASTINGPERFORMED BY: Gdd Hcanalytics[address] [id number] BY: BodyGuardzBrandon [place] 5389670 [facility] [id number] AST [Catalytic activity/Vol] 18 U/L Normal 0-40 [facility]; [facility] Work Phone: Comment on above: Test(s) 394311-Ekofn ic, Blood; 122905-Hewycqv, Blood; 262584-Qcvfgbd, Bloodwas developed and its performance characteristics determinedby [employer]. It has not been cleared or approved by the Foodand Drug Administration.PATIENT NOT FASTINGPERFORMED BY: [address] [id number] BY: [place] 6999870 [facility] [id number] Bilirubin [Mass/Vol] 0.3 mg/dL Normal 0.0-1.2 [facility] Internal Medicine; [facility] Work Phone: Comment on above: Test(s) 093493-Fnqey ic, Blood; 659543-Bjzhitz, Blood; 885067-Otairet, Bloodwas developed and its performance characteristics determinedby [employer]. It has not been cleared or approved by the Foodand Drug Administration.PATIENT NOT FASTINGPERFORMED BY: Gdd Hcanalytics[address] [id number] BY: BodyGuardzrp Vimwzb1202 Tamayo RoadDublin [place] [id number] Calcium [Mass/Vol] 9.6 mg/dL Normal 8.7-10.3 [facility] Internal Medicine; [facility] Work Phone: Comment on above: Test(s) 703532-Pfcxc ic, Blood; 877919-Pctkapp, Blood; 628446-Xnumltn, Bloodwas developed and its performance characteristics determinedby [employer]. It has not been cleared or approved by the Foodand Drug Administration.PATIENT NOT FASTINGPERFORMED BY: HERMEL DELOR [address] [id number] BY: [employer]6[address] Syntilla MedicalDublin [place] [id number] Chloride [Moles/Vol] 101 mmol/L Normal 96-106 [facility]; [facility] Work Phone: Comment on above: Test(s) 115010-Olykv ic, Blood; 457790-Qvbnxqg, Blood; 680021-Hqlrzbt, Bloodwas developed and its performance characteristics determinedby HERMEL DELOR. It has not been cleared or approved by the Foodand Drug Administration.PATIENT NOT FASTINGPERFORMED BY: BodyGuardz[address] [id number] BY: BodyGuardzrp Yubiql0083 [address] Barefoot Networksin [place] [id number] CO2 [Moles/Vol] 26 mmol/L Normal 20-29 [facility]; [facility] Work Phone: Comment on above: Test(s) 633186-Gvjdy ic, Blood; 314697-Qhcaljr, Blood; 602101-Aiomxnu, Bloodwas developed and its performance characteristics determinedby HERMEL DELOR. It has not been cleared or approved by the Foodand Drug Administration.PATIENT NOT FASTINGPERFORMED BY: BodyGuardz[address] [id number] BY: BodyGuardzrp Mfnysi0672 Tamayo RoadDublin [place] [id number] Creatinine [Mass/Vol] 0.77 mg/dL Normal 0.57-1.00 [facility] prehensive Internal Medicine; [facility] Work Phone: Comment on above: Test(s) 894294-Mlhbc ic, Blood; 862475-Nmvtqck, Blood; 136092-Qcmwvru, Bloodwas developed and its performance characteristics determinedby HERMEL DELOR. It has not been cleared or approved by the Foodand Drug Administration.PATIENT NOT FASTINGPERFORMED BY: [employer] [address] [id number] BY: [employer]70 [facility] [id number] GFR/1.73 sq M predicted among blacks CKD-EPI (S/P/Bld) [Vol rate/Area] 92 mL/min/1.73 Normal [facility]; [facility] Work Phone: Comment on above: Test(s) 738015-Aprvz ic, Blood; 320482-Vreesmo, Blood; 691073-Gfzvrji, Bloodwas developed and its performance characteristics determinedby HERMEL DELOR. It has not been cleared or approved by the Foodand Drug Administration.PATIENT NOT FASTINGPERFORMED BY: HERMEL DELOR [address] [id number] BY: [employer] Kqecar5407 [address] Syntilla MedicalUNC Health [facility] [id number] GFR/1.73 sq M predicted among non-blacks CKD-EPI (S/P/Bld) [Vol rate/Area] 80 mL/min/1.73 Normal [facility]; [facility] Work Phone: Comment on above: Test(s) 427583-Fmxxu ic, Blood; 620076-Ndzzxay, Blood; 910641-Gqroemr, Bloodwas developed and its performance characteristics determinedby HERMEL DELOR. It has not been cleared or approved by the Foodand Drug Administration.PATIENT NOT FASTINGPERFORMED BY: HERMEL DELOR [address] [id number] BY: BodyGuardzRunnells Specialized HospitalUxfcwe6529 [facility] [id number] Globulin (S) [Mass/Vol] 2.7 g/dL Normal 1.5-4.5 C omprehensive Internal Medicine; [facility] Work Phone: Comment on above: Test(s) 566277-Dyzvr ic, Blood; 405524-Xlcfmgy, Blood; 207678-Snyhmab, Bloodwas developed and its performance characteristics determinedby HERMEL DELOR. It has not been cleared or approved by the Foodand Drug Administration.PATIENT NOT FASTINGPERFORMED BY: [employer] [address] [id number] BY: [employer]70 [employer]3[facility] [id number] Glucose [Mass/Vol] 105 mg/dL Abnormal 65-99 [facility] Internal Medicine; [facility] Work Phone: Comment on above: Test(s) 211110-Xpsct ic, Blood; 652421-Kpylngt, Blood; 507253-Uhnaitx, Bloodwas developed and its performance characteristics determinedby HERMEL DELOR. It has not been cleared or approved by the Foodand Drug Administration.PATIENT NOT FASTINGPERFORMED BY: [employer] [address] [id number] BY: [employer]70 [employer]3[facility] [id number] Potassium [Moles/Vol] 4.4 mmol/L Normal 3.5-5.2 [facility]; [facility] Work Phone: Comment on above: Test(s) 131452-Jslgl ic, Blood; 882084-Dtkears, Blood; 993027-Bxhkxob, Bloodwas developed and its performance characteristics determinedby HERMEL DELOR. It has not been cleared or approved by the Foodand Drug Administration.PATIENT NOT FASTINGPERFORMED BY: HERMEL DELOR [address] [id number] BY: [employer]6370 [address] Barefoot NetworksAtrium Health Union [id number] Protein [Mass/Vol] 7.0 g/dL Normal 6.0-8.5 [facility] Internal Medicine; [facility] Work Phone: Comment on above: Test(s) 735513-Kuebe ic, Blood; 677214-Xsjosvi, Blood; 732390-Cprbtpw, Bloodwas developed and its performance characteristics determinedby [facility] [facility]. It has not been cleared or approved by the Foodand Drug Administration.PATIENT NOT FASTINGPERFORMED BY: BodyGuardz[address] [id number] BY: [employer] Zhpjpj1317 [address] Syntilla MedicalUNC Health [facility] [id number] Sodium [Moles/Vol] 140 mmol/L Normal 134-144 [facility] Internal Medicine; [facility] Work Phone: Comment on above: Test(s) 346736-Tanec ic, Blood; 634117-Spbscop, Blood; 393691-Hmanduf, Bloodwas developed and its performance characteristics determinedby HERMEL DELOR. It has not been cleared or approved by the Foodand Drug Administration.PATIENT NOT FASTINGPERFORMED BY: BodyGuardz[address] [id number] BY: BodyGuardzRunnells Specialized HospitalZjfdce9926 [place] Syntilla MedicalUNC Health [facility]dwell [id number] Urea nitrogen [Mass/Vol] 11 mg/dL Normal 8-27 [facility]; [facility] Work Phone: Comment on above: Test(s) 987950-Xrwpa ic, Blood; 222227-Qomgkot, Blood; 081608-Tntguir, Bloodwas developed and its performance characteristics determinedby HERMEL DELOR. It has not been cleared or approved by the Foodand Drug Administration.PATIENT NOT FASTINGPERFORMED BY: BodyGuardz[address] [id number] BY: BodyGuardzRunnells Specialized HospitalApyggk4700 [place] Syntilla MedicalUNC Health [facility] [id number] Urea nitrogen/Creatinine [Mass ratio] 14 mg/mg Normal 12-28 [facility]; [facility] Work Phone: Comment on above: Test(s) 768285-Npxtw ic, Blood; 223289-Tlnqcmx, Blood; 111288-Wzyxgbx, Bloodwas developed and its performance characteristics determinedby [employer]. It has not been cleared or approved by the Foodand Drug Administration.PATIENT NOT FASTINGPERFORMED BY: BodyGuardz[address] [id number] BY: [employer] Ybxygi2852 Mark MedicalAdventHealth Manchester [id number] SED RATE ERYTHROCYTE (85293) Ordered By: Proctologist on 02-08-2020 ESR (Bld) [Velocity] 9 mm/h Normal 0-[address] [facility] [address] [facility]; [facility] Work Phone: Comment on above: Test(s) 565618-Nbnlz ic, Blood; 890181-Viyakkp, Blood; 855526-Hpzckhc, Bloodwas developed and its performance characteristics determinedby HERMEL DELOR. It has not been cleared or approved by the Foodand Drug Administration.PATIENT NOT FASTINGPERFORMED BY: HERMEL DELOR [address] [id number] BY: [employer] Gixist0938 [employer]3[facility] [id number] Serum Protein Electrophoresi s (SPEP) (85297)Ordered By: Proctologist on 02-08-2020 Albumin [Mass/Vol] 3.6 g/dL Normal 2.9-4.4 [facility] Internal [facility]; [facility] Work Phone: Comment on above: Test(s) 825013-Xknrv ic, Blood; 548251-Yxvxadx, Blood; 130336-Tykuupn, Bloodwas developed and its performance characteristics determinedby HERMEL DELOR. It has not been cleared or approved by the Foodand Drug Administration.PATIENT NOT FASTINGPERFORMED BY: BodyGuardz[address] [id number] BY: BodyGuardzRunnells Specialized HospitalJlpasj3482 DocASAPUNC Health [facility]dwell [id number] Albumin/Globulin [Mass ratio] 1.1 {ratio} Normal 0.7-1.7 [facility]; [facility] Work Phone: Comment on above: Test(s) 281269-Uyyig ic, Blood; 468748-Utztdbt, Blood; 430181-Pdbafnf, Bloodwas developed and its performance characteristics determinedby HERMEL DELOR. It has not been cleared or approved by the Foodand Drug Administration.PATIENT NOT FASTINGPERFORMED BY: Gdd Hcanalytics[address] [id number] BY: [place] 6999870 [facility] [id number] Alpha 1 globulin Elph [Mass/Vol] 0.3 g/dL Normal 0.0-0.4 [facility]; [facility] Work Phone: Comment on above: Test(s) 493750-Sqtfa ic, Blood; 258593-Ezeftze, Blood; 685092-Qpwhzei, Bloodwas developed and its performance characteristics determinedby HERMEL DELOR. It has not been cleared or approved by the Foodand Drug Administration.PATIENT NOT FASTINGPERFORMED BY: BodyGuardz[address] [id number] BY: [facility] CenterAllegiance Health FoundationBrandon Ville 5389670 [facility] [id number] Alpha 2 globulin Elph [Mass/Vol] 0.9 g/dL Normal 0.4-1.0 [facility]; [facility] Work Phone: Comment on above: Test(s) 411128-Kdbxi ic, Blood; 798854-Jwososz, Blood; 456319-Lpymqsz, Bloodwas developed and its performance characteristics determinedby HERMEL DELOR. It has not been cleared or approved by the Foodand Drug Administration.PATIENT NOT FASTINGPERFORMED BY: BodyGuardz[address] [id number] BY: [facility]6370 [facility] [id number] Beta globulin Elph [Mass/Vol] 1.2 g/dL Normal 0.7-1.3 [facility]; [facility] Work Phone: Comment on above: Test(s) 958035-Xkhta ic, Blood; 003978-Kohmnzh, Blood; 660562-Tzxwgrz, Bloodwas developed and its performance characteristics determinedby HERMEL DELOR. It has not been cleared or approved by the Foodand Drug Administration.PATIENT NOT FASTINGPERFORMED BY: BodyGuardz[address] [id number] BY: [employer] Cdejsl5510 [facility] [id number] Gamma globulin Elph [Mass/Vol] 1.1 g/dL Normal 0.4-1.8 [facility]; [facility] Work Phone: Comment on above: Test(s) 094522-Mdfhr ic, Blood; 603900-Vamhsvb, Blood; 066727-Sughauj, Bloodwas developed and its performance characteristics determinedby HERMEL DELOR. It has not been cleared or approved by the Foodand Drug Administration.PATIENT NOT FASTINGPERFORMED BY: BodyGuardz[address] [id number] BY: [employer] Ycfnuw8661 [facility] [id number] Globulin (S) [Mass/Vol] 3.4 g/dL Normal 2.2-3.9 C omprehensive Internal Medicine; [facility] Work Phone: Comment on above: Test(s) 335844-Adygo ic, Blood; 915960-Vkesttm, Blood; 486310-Tufbpxr, Bloodwas developed and its performance characteristics determinedby HERMEL DELOR. It has not been cleared or approved by the Foodand Drug Administration.PATIENT NOT FASTINGPERFORMED BY: BodyGuardz[address] [id number] BY: [employer] Ymracn9784 [facility] [id number] Laboratory comment Bryan (Report) RUST Normal [facility]; [facility] Work Phone: Comment on above: Protein electrophore sis scan will follow via computer, mail, orcourier delivery. Test(s) 500068-Aincf ic, Blood; 191669-Mwktdrd, Blood; 748261-Qkjjety, Bloodwas developed and its performance characteristics determinedby HERMEL DELOR. It has not been cleared or approved by the Foodand Drug Administration.PATIENT NOT FASTINGPERFORMED BY: BodyGuardz[address] [id number] BY: BodyGuardzRunnells Specialized HospitalNbnjdb9042 [facility] [id number] Laboratory report . Normal Compreh ensive Internal Medicine; [facility] Work Phone: Comment on above: Test(s) 791729-Djczw ic, Blood; 809496-Jfrxlir, Blood; 231655-Peqrmhq, Bloodwas developed and its performance characteristics determinedby [employer]. It has not been cleared or approved by the Foodand Drug Administration.PATIENT NOT FASTINGPERFORMED BY: [employer] [address] [id number] BY: [employer]70 Mark MedicalAdventHealth Manchester [id number] Protein.monoclonal Elph [Mass/Vol] Not Observed Normal [facility]; [facility] Work Phone: Comment on above: Test(s) 413159-Zbsgt ic, Blood; 208744-Olhnbnk, Blood; 332630-Siuwuch, Bloodwas developed and its performance characteristics determinedby HERMEL DELOR. It has not been cleared or approved by the Foodand Drug Administration.PATIENT NOT FASTINGPERFORMED BY: [employer] [address] [id number] BY: [employer]70 [employer]3[facility] [id number] TSH (THYROID STIMULATING HOR JOHN) (10279)Ordered By: Proctologist on 02-08-2020 TSH Qn 1.020 {uIU/mL} Normal 0.450-4.500 Comprehen sive Internal Medicine; [facility] Work Phone: Comment on above: Test(s) 061518-Sjcbq ic, Blood; 416111-Dshxeby, Blood; 910373-Mntpgkc, Bloodwas developed and its performance characteristics determinedby HERMEL DELOR. It has not been cleared or approved by the Foodand Drug Administration.PATIENT NOT FASTINGPERFORMED BY: [employer] [address] [id number] BY: Social Pluslin6370 [address] Barefoot NetworksAtrium Health Union [id number] VITAMIN B-12 (CYANOCOBALAMIN ) (20165)Ordered By: Proctologist on 02-08-2020 Cobalamin (Vitamin B12) [Mass/Vol] 717 pg/mL Normal 232-1245 [facility]; [facility] Work Phone: Comment on above: Test(s) 947789-Mumgs ic, Blood; 700173-Aaheona, Blood; 778400-Tabsdsx, Bloodwas developed and its performance characteristics determinedby HERMEL DELOR. It has not been cleared or approved by the Foodand Drug Administration.PATIENT NOT FASTINGPERFORMED BY: [employer] [address] [id number] BY: Social Pluslin6370 [facility]oJohn [facility] [id number] HgA1C , Office (76991)Ordere d By: Jannie Saenz on 11-04-2019 HbA1c (Bld) [Mass fraction] 6.0 % Normal 4.6 - 7.1 [facility] Work Phone: CBC W/AUTO DIFF WBC (54281)O rdered By: Proctologist on 10-26-2019 Basophils (Bld) [#/Vol] 0.0 {x10E3/uL} Normal 0.0-0.2 [facility] Work Phone: Comment on above: Test(s) 038711-PCW-W ; 972689-EYA-A; 206302-XAJ-G; 897973-Pmosmyscnrmet; 008762-Zbdduajxfhe, Total; 588982-ORL-A (Total);263110-Uazvy LDL-P; 608487-NHF Size; 477801-MT-AO Scorewas developed and its performance characteristics determinedby HERMEL DELOR. It has not been cleared or approved by the Foodand Drug Administration.PATIENT WAS FASTINGPERFORMED BY: [employer] [address] [id number] BY: Social Pluslin6370 [facility]oJohn [facility]. [facility] [id number] Basophils (Bld) [#/Vol] 0.0 10*3/uL Normal 0.0-0.2 [facility]; [facility] Work Phone: Comment on above: Test(s) 194775-IAN-I ; 203683-IOL-O; 712944-RQE-F; 195141-Gutcnacnjnyfe; 549228-Rzsfpcfqaah, Total; 217262-BLU-D (Total);514518-Qvtrz LDL-P; 847203-CVF Size; 644250-YV-HW Scorewas developed and its performance characteristics determinedby HERMEL DELOR. It has not been cleared or approved by the Foodand Drug Administration.PATIENT WAS FASTINGPERFORMED BY: [employer] [address] [id number] BY: CYPHER Kcyqyp4471 [facility] [id number] Basophils/100 WBC (Bld) 1 % Normal C ompunm [facility] Internal Medicine Work Phone: Comment on above: Test(s) 813348-SIF-Q ; 431947-BUZ-U; 755045-BYJ-B; 423554-Xmvjfgfualdcq; 001786-Uacpockyanf, Total; 427687-AFF-Y (Total);179466-Adcgf LDL-P; 511467-URW Size; 461354-TB-DR Scorewas developed and its performance characteristics determinedby HERMEL DELOR. It has not been cleared or approved by the Foodand Drug Administration.PATIENT WAS FASTINGPERFORMED BY: [employer] [address] [id number] BY: TrendBent6370 [facility] [id number] Eosinophils (Bld) [#/Vol] 0.1 {x10E3/uL} Normal 0.0-0.4 [facility] Work Phone: Comment on above: Test(s) 219126-MML-R ; 775248-TYO-G; 928907-SYP-V; 433393-Ybepijrqyvcoz; 004509-Eiwhokgbxfk, Total; 407656-ICV-I (Total);754901-Snetn LDL-P; 082720-CBB Size; 664957-UB-YE Scorewas developed and its performance characteristics determinedby HERMEL DELOR. It has not been cleared or approved by the Foodand Drug Administration.PATIENT WAS FASTINGPERFORMED BY: BN LabCo[address] [id number] BY: BodyGuardzRunnells Specialized HospitalQpubmm8292 [facility] [id number] Eosinophils (Bld) [#/Vol] 0.1 10*3/uL Normal 0.0-0.4 [facility]; [facility] Work Phone: Comment on above: Test(s) 974141-VIE-F ; 183174-AXH-V; 570280-NRW-G; 269431-Itsvvxhypyhtt; 890978-Upqjfjvaoom, Total; 273466-ZGL-Q (Total);289489-Viscr LDL-P; 817065-APT Size; 469961-CQ-GQ Scorewas developed and its performance characteristics determinedby HERMEL DELOR. It has not been cleared or approved by the Foodand Drug Administration.PATIENT WAS FASTINGPERFORMED BY: [employer] [address] [id number] BY: TrendBent6370 [facility] [id number] Eosinophils/100 WBC (Bld) 2 % Normal [facility] Work Phone: Comment on above: Test(s) 228232-SWC-H ; 086063-SIL-T; 854332-KYU-G; 081317-Gvwqbszuxitnc; 800337-Xqkjwajfxhf, Total; 076672-HKD-N (Total);821097-Kdhfi LDL-P; 703612-OKK Size; 135493-HC-FR Scorewas developed and its performance characteristics determinedby HERMEL DELOR. It has not been cleared or approved by the Foodand Drug Administration.PATIENT WAS FASTINGPERFORMED BY: [employer] [id number] BY: [employer] Zobsld0705 [facility] [id number] Erythrocyte distribution width (RBC) [Ratio] 12.7 % Normal 11.7-15.4 [facility] Work Phone: Comment on above: Test(s) 773475-BEF-V ; 587921-JFC-S; 599461-ZHF-F; 288747-Ygfmgtfzufxjv; 538422-Zpnyefdlgim, Total; 001945-KOG-K (Total);151582-Ebpnm LDL-P; 211070-PSV Size; 995752-CJ-QV Scorewas developed and its performance characteristics determinedby HERMEL DELOR. It has not been cleared or approved by the Foodand Drug Administration.PATIENT WAS FASTINGPERFORMED BY: [employer] [address] [id number] BY: [employer]70 [facility] [id number] Hematocrit (Bld) [Volume fraction] 40.8 % Normal 34.0-46.6 [facility] Work Phone: Comment on above: Test(s) 369024-PNA-M ; 937525-RPL-W; 539590-ZFC-X; 271161-Bzqlvlzaqqrcw; 673245-Jssarnewttq, Total; 043815-VDI-J (Total);397220-Aiyhf LDL-P; 625538-UMB Size; 834657-UZ-QU Scorewas developed and its performance characteristics determinedby HERMEL DELOR. It has not been cleared or approved by the Foodand Drug Administration.PATIENT WAS FASTINGPERFORMED BY: [employer] [address] [id number] BY: CYPHER Szygnf2144 [facility] [id number] Hemoglobin (Bld) [Mass/Vol] 13.4 g/dL Normal 11.1-15.9 [facility] Work Phone: Comment on above: Test(s) 177628-VZQ-A ; 259691-JVV-G; 600773-UGD-Q; 888378-Cwxuwqdgjpzkh; 284857-Nkckuvircpq, Total; 816568-KDJ-M (Total);252875-Blxcz LDL-P; 389236-KNI Size; 114892-JP-KV Scorewas developed and its performance characteristics determinedby HERMEL DELOR. It has not been cleared or approved by the Foodand Drug Administration.PATIENT WAS FASTINGPERFORMED BY: [employer] [address] [id number] BY: [employer]6370 [facility] [id number] Immature granulocytes (Bld) [#/Vol] 0.0 {x10E3/uL} Normal 0.0-0.1 [facility] Work Phone: Comment on above: Test(s) 224207-ZJN-P ; 444713-XMJ-O; 026947-YWV-X; 874492-Yeyouxwytinol; 586448-Uzrafqawqyp, Total; 111237-IEV-P (Total);053259-Bzaqt LDL-P; 846703-KTU Size; 171958-PU-ZD Scorewas developed and its performance characteristics determinedby HERMEL DELOR. It has not been cleared or approved by the Foodand Drug Administration.PATIENT WAS FASTINGPERFORMED BY: [employer] [address] [id number] BY: [employer]6370 [facility] [id number] Immature granulocytes (Bld) [#/Vol] 0.0 10*3/uL Normal 0.0-0.1 [facility]; [facility] Work Phone: Comment on above: Test(s) 015452-HZV-B ; 411916-GTX-F; 979294-TVM-Y; 000010-Mhnoyopdonlkk; 033763-Ilvpfwpogfb, Total; 669156-JGW-Z (Total);709976-Zwqkq LDL-P; 349181-QIR Size; 161021-OH-ZS Scorewas developed and its performance characteristics determinedby HERMEL DELOR. It has not been cleared or approved by the Foodand Drug Administration.PATIENT WAS FASTINGPERFORMED BY: [employer] [address] [id number] BY: [employer]70 [facility] [id number] Immature granulocytes/100 WBC (Bld) 0 % Normal [facility] Work Phone: Comment on above: Test(s) 874721-SAG-B ; 226275-JMP-H; 315719-JSQ-K; 957586-Ouoalgemjmxbm; 416900-Fywjhhirsex, Total; 333769-VUM-W (Total);693492-Ousbd LDL-P; 257894-XEZ Size; 459215-RC-KH Scorewas developed and its performance characteristics determinedby HERMEL DELOR. It has not been cleared or approved by the Foodand Drug Administration.PATIENT WAS FASTINGPERFORMED BY: HERMEL DELOR [address] [id number] BY: HERMEL DELOR Vyrdii9116 [facility] [id number] Lymphocytes (Bld) [#/Vol] 1.5 {x10E3/uL} Normal 0.7-3.1 [facility] Work Phone: Comment on above: Test(s) 452627-MEO-I ; 304851-WMX-T; 357756-KGL-A; 329569-Ytcmyevozggul; 098103-Rjqqkosxqrp, Total; 940093-LAO-G (Total);046902-Npybh LDL-P; 317352-SDS Size; 370800-WR-PJ Scorewas developed and its performance characteristics determinedby HERMEL DELOR. It has not been cleared or approved by the Foodand Drug Administration.PATIENT WAS FASTINGPERFORMED BY: HERMEL DELOR [address] [id number] BY: HERMEL DELOR Tqanop1942 [facility] [id number] Lymphocytes (Bld) [#/Vol] 1.5 10*3/uL Normal 0.7-3.1 [facility]; [facility] Work Phone: Comment on above: Test(s) 149264-OBO-D ; 492973-QOO-T; 279717-CQG-V; 206753-Luqodlgjbzmlk; 634001-Jrzqrvbikbs, Total; 073961-LLQ-V (Total);671232-Entfl LDL-P; 266743-HVL Size; 696499-PT-YD Scorewas developed and its performance characteristics determinedby HERMEL DELOR. It has not been cleared or approved by the Foodand Drug Administration.PATIENT WAS FASTINGPERFORMED BY: [employer] [address] [id number] BY: [employer]70 [facility] [id number] Lymphocytes/100 WBC (Bld) 22 % Normal [facility] Internal Medicine Work Phone: Comment on above: Test(s) 757938-LEB-C ; 289830-MAW-I; 830661-ZIX-H; 045501-Nhtbvlgufpbsv; 554781-Dzmilxzuyyj, Total; 804569-OJK-B (Total);228555-Tbarj LDL-P; 404871-CCZ Size; 124163-EL-QW Scorewas developed and its performance characteristics determinedby HERMEL DELOR. It has not been cleared or approved by the Foodand Drug Administration.PATIENT WAS FASTINGPERFORMED BY: [employer] [address] [id number] BY: [employer]70 [facility] [id number] MCH (RBC) [Entitic mass] 29.9 pg Normal 26.6-33.0 [facility] Internal Medicine Work Phone: Comment on above: Test(s) 866876-GNL-X ; 682864-DDT-K; 511741-FSH-K; 486734-Kejqdketzppsq; 362881-Fevxklkxvws, Total; 517640-OUN-E (Total);008004-Zyuuc LDL-P; 906703-IBE Size; 313778-UC-SZ Scorewas developed and its performance characteristics determinedby HERMEL DELOR. It has not been cleared or approved by the Foodand Drug Administration.PATIENT WAS FASTINGPERFORMED BY: [employer] [address] [id number] BY: [employer]6370 [facility] [id number] MCHC (RBC) [Mass/Vol] 32.8 g/dL Normal 31.5-35.7 [facility] prehensive Internal Medicine Work Phone: Comment on above: Test(s) 571851-MFU-B ; 332197-UNA-C; 224406-OBZ-I; 473978-Bfcnbrkoilsjs; 669517-Wepwxspoesf, Total; 413665-USQ-G (Total);210174-Dziof LDL-P; 224407-SBU Size; 300785-BM-RQ Scorewas developed and its performance characteristics determinedby HERMEL DELOR. It has not been cleared or approved by the Foodand Drug Administration.PATIENT WAS FASTINGPERFORMED BY: [employer] [address] [id number] BY: [employer]70 [facility] [id number] MCV (RBC) [Entitic vol] 91 fL Normal 79-97 [facility] Internal Medicine Work Phone: Comment on above: Test(s) 711730-XNN-I ; 323870-YRM-D; 000948-XSI-S; 738199-Etqwebqvjjand; 338258-Jserffogsuu, Total; 085099-EFK-R (Total);695111-Fdptc LDL-P; 542108-EYO Size; 234419-OJ-ZR Scorewas developed and its performance characteristics determinedby HERMEL DELOR. It has not been cleared or approved by the Foodand Drug Administration.PATIENT WAS FASTINGPERFORMED BY: [employer] [address] [id number] BY: TrendBent6370 [facility] [id number] Monocytes (Bld) [#/Vol] 0.6 {x10E3/uL} Normal 0.1-0.9 [facility] Work Phone: Comment on above: Test(s) 956699-ACP-W ; 125874-OQJ-O; 310222-TMA-N; 070448-Cnuvgnqbudoni; 788896-Hvsxkhnrsms, Total; 764327-YXE-O (Total);041198-Thaop LDL-P; 827539-NJF Size; 951552-IJ-VN Scorewas developed and its performance characteristics determinedby HERMEL DELOR. It has not been cleared or approved by the Foodand Drug Administration.PATIENT WAS FASTINGPERFORMED BY: [employer] [address] [id number] BY: [facility] TherapiesRunnells Specialized HospitalVdrumq9576 [facility] [id number] Monocytes (Bld) [#/Vol] 0.6 10*3/uL Normal 0.1-0.9 [facility]; [facility] Work Phone: Comment on above: Test(s) 549627-XEN-M ; 341466-OGA-A; 951318-DNG-C; 274911-Fxyikfcfuqjmy; 060551-Xwbcndyqsxg, Total; 941799-NEZ-R (Total);827498-Yzgff LDL-P; 300857-JVF Size; 815790-YR-DZ Scorewas developed and its performance characteristics determinedby HERMEL DELOR. It has not been cleared or approved by the Foodand Drug Administration.PATIENT WAS FASTINGPERFORMED BY: [employer] [address] [id number] BY: TrendBent6370 [facility] [id number] Monocytes/100 WBC (Bld) 9 % Normal [facility] Internal Medicine Work Phone: Comment on above: Test(s) 568483-MMN-A ; 500510-JHJ-Q; 719336-HNL-J; 622648-Lhorixyewmeln; 990132-Lgwsqyumquj, Total; 637820-ASX-R (Total);269307-Cdsua LDL-P; 707232-BGX Size; 790661-JJ-TG Scorewas developed and its performance characteristics determinedby HERMEL DELOR. It has not been cleared or approved by the Foodand Drug Administration.PATIENT WAS FASTINGPERFORMED BY: [employer] [address] [id number] BY: Social Pluslin6370 [facility] [id number] Neutrophils (Bld) [#/Vol] 4.3 {x10E3/uL} Normal 1.4-7.0 [facility] Internal Medicine Work Phone: Comment on above: Test(s) 720375-SVS-L ; 022596-CZQ-Q; 157200-STQ-C; 900144-Xnqaejjohrvtn; 016235-Zbqmxpwkxfh, Total; 567716-BIJ-R (Total);241148-Ghydh LDL-P; 872940-JVN Size; 307627-CI-GA Scorewas developed and its performance characteristics determinedby HERMEL DELOR. It has not been cleared or approved by the Foodand Drug Administration.PATIENT WAS FASTINGPERFORMED BY: [employer] [address] [id number] BY: CYPHER Oygkhv3862 [facility] [id number] Neutrophils (Bld) [#/Vol] 4.3 10*3/uL Normal 1.4-7.0 [facility]; [facility] Work Phone: Comment on above: Test(s) 674097-LJC-A ; 321628-WXK-W; 244390-HZX-L; 642061-Zvceokxypduxu; 882039-Bjowhjesobe, Total; 896779-HGY-A (Total);079050-Czjzo LDL-P; 474718-RKQ Size; 960078-WA-FR Scorewas developed and its performance characteristics determinedby HERMEL DELOR. It has not been cleared or approved by the Foodand Drug Administration.PATIENT WAS FASTINGPERFORMED BY: [employer] [address] [id number] BY: Trend[employer]ent6370 [facility] [id number] Neutrophils/100 WBC (Bld) 66 % Normal [facility] Work Phone: Comment on above: Test(s) 273818-TIF-C ; 937340-IJW-I; 123978-GAM-S; 799392-Alnyzoqeaoqeg; 620811-Kninttojrhz, Total; 989350-YKT-K (Total);353961-Jfiiz LDL-P; 390379-LFD Size; 588288-XO-KA Scorewas developed and its performance characteristics determinedby HERMEL DELOR. It has not been cleared or approved by the Foodand Drug Administration.PATIENT WAS FASTINGPERFORMED BY: [employer] [address] [id number] BY: [employer]rend[employer]ent6370 [employer] [id number] Platelets (Bld) [#/Vol] 331 {x10E3/uL} Normal 150-450 [facility] Internal Medicine Work Phone: Comment on above: Test(s) 814590-DSU-Y ; 220560-WWH-O; 433570-IVD-O; 046136-Hsyrqhgkzkrpm; 622265-Mruxrloffnh, Total; 866504-VGA-M (Total);328132-Udpzu LDL-P; 188558-ZIY Size; 684616-HG-GV Scorewas developed and its performance characteristics determinedby HERMEL DELOR. It has not been cleared or approved by the Foodand Drug Administration.PATIENT WAS FASTINGPERFORMED BY: [employer] [id number] BY: [employer]70 [employer] [id number] Platelets (Bld) [#/Vol] 331 10*3/uL Normal 150-450 [facility]; [facility] Internal Medicine Work Phone: Comment on above: Test(s) 629296-FUT-F ; 297986-UGQ-D; 793793-PDB-S; 318587-Tjdgpaonmnqym; 564043-Zxwswkletwp, Total; 078904-TCB-I (Total);832769-Fcvnj LDL-P; 265241-SFF Size; 109846-EF-QG Scorewas developed and its performance characteristics determinedby HERMEL DELOR. It has not been cleared or approved by the Foodand Drug Administration.PATIENT WAS FASTINGPERFORMED BY: [employer] Thermal Technologyton1447 [facility] [id number] BY: [employer]70 [employer] [id number] RBC (Bld) [#/Vol] 4.48 {x10E6/uL} Normal 3.77-5.28 [facility] Internal Medicine Work Phone: Comment on above: Test(s) 571232-HXW-C ; 953725-RHJ-K; 509416-HTA-H; 593278-Qolhbxizgrsws; 769196-Ematjcicgap, Total; 934274-LNT-R (Total);801728-Pyzjb LDL-P; 150787-QXY Size; 273901-UA-XC Scorewas developed and its performance characteristics determinedby HERMEL DELOR. It has not been cleared or approved by the Foodand Drug Administration.PATIENT WAS FASTINGPERFORMED BY: HERMEL DELOR [address] [id number] BY: HERMEL DELOR Yqhvmm1999 [facility] [id number] RBC (Bld) [#/Vol] 4.48 10*6/uL Normal 3.77-5.28 [facility] ehensive Internal Medicine; [facility] Internal Medicine Work Phone: Comment on above: Test(s) 922093-IYV-J ; 930500-FTQ-O; 778838-UCT-Y; 409751-Ejawhwrvtiqxv; 226477-Ungmydyuunr, Total; 349806-RVX-P (Total);722488-Bmmiv LDL-P; 617877-MEH Size; 414539-OW-IK Scorewas developed and its performance characteristics determinedby HERMEL DELOR. It has not been cleared or approved by the Foodand Drug Administration.PATIENT WAS FASTINGPERFORMED BY: HERMEL DELOR [address] [id number] BY: HERMEL DELOR Ewnwky2097 [facility] [id number] WBC (Bld) [#/Vol] 6.6 {x10E3/uL} Normal 3.4-10.8 [facility] Work Phone: Comment on above: Test(s) 038658-XQW-L ; 122559-NHO-S; 689245-MDG-K; 711041-Mkolccegevafb; 006579-Cmevbyjkngq, Total; 468741-TEK-L (Total);460105-Bdvxu LDL-P; 542114-VUP Size; 013192-HW-IP Scorewas developed and its performance characteristics determinedby HERMEL DELOR. It has not been cleared or approved by the Foodand Drug Administration.PATIENT WAS FASTINGPERFORMED BY: [employer] [id number] BY: [employer]70 [employer] [id number] WBC (Bld) [#/Vol] 6.6 10*3/uL Normal 3.4-10.8 [facility] Internal Medicine; [facility] Internal Medicine Work Phone: Comment on above: Test(s) 566591-BEG-B ; 385290-VTK-F; 848676-QKW-A; 841957-Znelnquejoipo; 926369-Kqabdboezxw, Total; 454779-ZOQ-E (Total);292638-Cfjha LDL-P; 585205-HPE Size; 421334-CR-PB Scorewas developed and its performance characteristics determinedby HERMEL DELOR. It has not been cleared or approved by the Foodand Drug Administration.PATIENT WAS FASTINGPERFORMED BY: [employer] [id number] BY: TrendBent6370 [place] Barefoot NetworksAtrium Health Union [id number] METABOLIC PANEL, COMPREHENSI VE (62270)Ordered By: Proctologist on 10-26-2019 Albumin [Mass/Vol] 4.5 g/dL Normal 3.8-4.8 [facility] Internal Medicine Work Phone: Comment on above: Test(s) 436653-XOW-Q ; 786917-LXM-W; 828959-NCE-I; 366716-Tgchczqmxrtab; 962832-Cubwrnzuwtw, Total; 118235-HLV-J (Total);946116-Cmomt LDL-P; 019957-WBP Size; 582312-MN-ZB Scorewas developed and its performance characteristics determinedby HERMEL DELOR. It has not been cleared or approved by the Foodand Drug Administration.PATIENT WAS FASTINGPERFORMED BY: [employer] [id number] BY: TrendBent6370 [facility] [id number] Albumin/Globulin [Mass ratio] 2.0 {ratio} Normal 1.2-2.2 [facility] Work Phone: Comment on above: Test(s) 544445-LXD-J ; 078264-ISS-M; 336393-SAZ-N; 734386-Edfblelytxiyz; 899201-Ozvftvejkwq, Total; 350674-VFB-M (Total);941628-Sntxg LDL-P; 392659-TAC Size; 036465-WL-ZB Scorewas developed and its performance characteristics determinedby HERMEL DELOR. It has not been cleared or approved by the Foodand Drug Administration.PATIENT WAS FASTINGPERFORMED BY: [employer] [id number] BY: [employer]70 [facility] [id number] ALP [Catalytic activity/Vol] 79 [iU]/L Normal 39-117 [facility] Work Phone: Comment on above: Test(s) 245879-DKO-M ; 541896-NQM-O; 959759-XGQ-Y; 351961-Wsmqrhnjitfch; 914666-Btulauicjym, Total; 600932-YMH-S (Total);688837-Ahnqr LDL-P; 885240-DNQ Size; 262091-EB-YE Scorewas developed and its performance characteristics determinedby HERMEL DELOR. It has not been cleared or approved by the Foodand Drug Administration.PATIENT WAS FASTINGPERFORMED BY: [employer] [address] [id number] BY: [employer]70 [facility] [id number] ALP [Catalytic activity/Vol] 79 U/L Normal 39-117 [facility]; [facility] Work Phone: Comment on above: Test(s) 391707-BXH-C ; 705874-GWC-B; 563636-NKY-J; 039054-Xlefqodzycrir; 225318-Bmxsrrkdgfb, Total; 170483-YWW-J (Total);937863-Pheio LDL-P; 899579-WPS Size; 699717-YV-NF Scorewas developed and its performance characteristics determinedby HERMEL DELOR. It has not been cleared or approved by the Foodand Drug Administration.PATIENT WAS FASTINGPERFORMED BY: Body[employer]z[address] [id number] BY: BodyGuardzRunnells Specialized HospitalCxmmyw8635 [facility] [id number] ALT [Catalytic activity/Vol] 22 [iU]/L Normal 0-32 [facility] Work Phone: Comment on above: Test(s) 300049-MWA-F ; 223418-TMQ-B; 357678-NVQ-E; 689833-Dqaugsycoyfrz; 986954-Omdlpnfoewh, Total; 891839-RND-Z (Total);851522-Fygzr LDL-P; 065332-CGY Size; 256618-QQ-HI Scorewas developed and its performance characteristics determinedby HERMEL DELOR. It has not been cleared or approved by the Foodand Drug Administration.PATIENT WAS FASTINGPERFORMED BY: HERMEL DELOR [address] [id number] BY: BodyGuardzRunnells Specialized HospitalRmaxck0239 [facility] [id number] ALT [Catalytic activity/Vol] 22 U/L Normal 0-32 [facility]; [facility] Work Phone: Comment on above: Test(s) 155223-XAI-N ; 094727-RAM-K; 258976-FYS-O; 476536-Bcobmuqyjlfof; 766079-Xwunpqopxsp, Total; 185726-UFI-N (Total);977618-Pgkty LDL-P; 265029-RUC Size; 890514-RN-UH Scorewas developed and its performance characteristics determinedby HERMEL DELOR. It has not been cleared or approved by the Foodand Drug Administration.PATIENT WAS FASTINGPERFORMED BY: BodyGuardz[address] [id number] BY: BodyGuardzRunnells Specialized HospitalZrzhmk8036 [facility] [id number] AST [Catalytic activity/Vol] 19 [iU]/L Normal 0-40 [facility] Work Phone: Comment on above: Test(s) 636304-HJO-E ; 073214-WJX-V; 179802-QIC-D; 257795-Uhfxkikoiahes; 582533-Qvhrakkabna, Total; 158946-JND-H (Total);020939-Tdrkh LDL-P; 606160-DIF Size; 899541-IB-EE Scorewas developed and its performance characteristics determinedby HERMEL DELOR. It has not been cleared or approved by the Foodand Drug Administration.PATIENT WAS FASTINGPERFORMED BY: [employer] [address] [id number] BY: [employer]70 [employer] [id number] AST [Catalytic activity/Vol] 19 U/L Normal 0-40 [facility]; [facility] Work Phone: Comment on above: Test(s) 736814-VZP-B ; 826768-PME-L; 879070-IKY-Z; 564761-Txvhkjommpaue; 370009-Kxpnyzhxysr, Total; 255240-ONB-Y (Total);048278-Czgaz LDL-P; 212251-SWM Size; 405232-XB-FJ Scorewas developed and its performance characteristics determinedby HERMEL DELOR. It has not been cleared or approved by the Foodand Drug Administration.PATIENT WAS FASTINGPERFORMED BY: HERMEL DELOR [address] [id number] BY: TrendBent6370 [facility]oJohn [facility] [id number] Bilirubin [Mass/Vol] 0.3 mg/dL Normal 0.0-1.2 [facility] Internal Medicine Work Phone: Comment on above: Test(s) 172718-UIO-J ; 386978-YGO-S; 440829-GVT-J; 856541-Ylrqygynblnjc; 094420-Xlansderkuz, Total; 434745-UXS-N (Total);852326-Lzxoc LDL-P; 090392-NNT Size; 452469-US-UP Scorewas developed and its performance characteristics determinedby HERMEL DELOR. It has not been cleared or approved by the Foodand Drug Administration.PATIENT WAS FASTINGPERFORMED BY: [employer] Internationalrp Vkzocdfpyd3135 [facility] [id number] BY: [employer] Tazztq1949 [place] Barefoot NetworksAtrium Health Union [id number] Calcium [Mass/Vol] 9.5 mg/dL Normal 8.7-10.3 [facility] Internal Medicine Work Phone: Comment on above: Test(s) 514278-KVO-W ; 905758-OPQ-A; 368640-LFS-J; 748793-Xegsruqhsdxae; 379672-Nmuhemblgic, Total; 122461-FCG-J (Total);051308-Efmzm LDL-P; 005523-WQN Size; 868674-XS-LU Scorewas developed and its performance characteristics determinedby HERMEL DELOR. It has not been cleared or approved by the Foodand Drug Administration.PATIENT WAS FASTINGPERFORMED BY: [employer] [id number] BY: TrendBent6370 [facility] [id number] Chloride [Moles/Vol] 99 mmol/L Normal 96-106 [facility] Internal Medicine Work Phone: Comment on above: Test(s) 563650-ZZE-L ; 645003-IBT-Z; 477050-BMM-G; 642156-Saitcrileooln; 579136-Mdhwqtlwgfr, Total; 426670-FAW-U (Total);834028-Kpyqd LDL-P; 308451-KLR Size; 927995-YO-CG Scorewas developed and its performance characteristics determinedby HERMEL DELOR. It has not been cleared or approved by the Foodand Drug Administration.PATIENT WAS FASTINGPERFORMED BY: [employer] [address] [id number] BY: [employer] Vlndiv1318 [facility] [id number] CO2 [Moles/Vol] 28 mmol/L Normal 20-29 [facility] Internal Medicine Work Phone: Comment on above: Test(s) 510232-KRG-D ; 766828-MDO-L; 935094-OOJ-Q; 448031-Rhjhgowjvyvgq; 509881-Xiepafdgmpg, Total; 618490-MZD-I (Total);835935-Murgx LDL-P; 021303-WHA Size; 466949-JN-EK Scorewas developed and its performance characteristics determinedby HERMEL DELOR. It has not been cleared or approved by the Foodand Drug Administration.PATIENT WAS FASTINGPERFORMED BY: [employer] [address] [id number] BY: HERMEL DELOR Bzbbyt8726 [facility] [id number] Creatinine [Mass/Vol] 0.75 mg/dL Normal 0.57-1.00 [facility] prehensive Internal Medicine Work Phone: Comment on above: Test(s) 514875-APU-I ; 004621-YAF-Z; 296888-NLW-O; 832968-Ybnfmznmpfldo; 623769-Vjxqbvdoohi, Total; 407314-XPR-Z (Total);861102-Ilcmd LDL-P; 587128-ISC Size; 404024-UC-KZ Scorewas developed and its performance characteristics determinedby HERMEL DELOR. It has not been cleared or approved by the Foodand Drug Administration.PATIENT WAS FASTINGPERFORMED BY: HERMEL DELOR [address] [id number] BY: HERMEL DELOR [id number] [facility] [id number] GFR/1.73 sq M predicted among blacks CKD-EPI (S/P/Bld) [Vol rate/Area] 95 mL/min/1.73 Normal [facility] Work Phone: Comment on above: Test(s) 630689-KTP-F ; 678636-VNJ-O; 617122-XSY-O; 507181-Fhwmffnmqynlv; 151780-Bcmxabfdboq, Total; 711038-DJC-E (Total);792604-Kgkdv LDL-P; 595633-DHN Size; 308183-CP-DK Scorewas developed and its performance characteristics determinedby HERMEL DELOR. It has not been cleared or approved by the Foodand Drug Administration.PATIENT WAS FASTINGPERFORMED BY: [employer] [id number] BY: Bi[employer]70 [facility] [id number] GFR/1.73 sq M predicted among non-blacks CKD-EPI (S/P/Bld) [Vol rate/Area] 82 mL/min/1.73 Normal [facility] Work Phone: Comment on above: Test(s) 077944-XHG-L ; 713574-NVN-E; 109724-VKU-A; 119169-Qwydgbxlebjes; 327553-Bfduzkitcwg, Total; 001158-MVM-W (Total);445401-Uofvr LDL-P; 862962-RGH Size; 590651-FQ-WN Scorewas developed and its performance characteristics determinedby HERMEL DELOR. It has not been cleared or approved by the Foodand Drug Administration.PATIENT WAS FASTINGPERFORMED BY: [employer] [id number] BY: TrendBent6370 [facility] [id number] Globulin (S) [Mass/Vol] 2.3 g/dL Normal 1.5-4.5 C [facility] Internal Medicine Work Phone: Comment on above: Test(s) 328114-MMY-W ; 608014-ZRF-P; 251056-LVE-B; 849897-Qkdmxhechlrjs; 051032-Aretohmxtfy, Total; 793685-DDJ-O (Total);975835-Dmyca LDL-P; 850791-XLR Size; 363797-FI-UU Scorewas developed and its performance characteristics determinedby HERMEL DELOR. It has not been cleared or approved by the Foodand Drug Administration.PATIENT WAS FASTINGPERFORMED BY: [employer] [id number] BY: TrendBent6370 [facility] [id number] Glucose [Mass/Vol] 110 mg/dL Abnormal 65-99 [facility] Internal Medicine Work Phone: Comment on above: Test(s) 646833-LXE-L ; 241814-LGH-T; 811120-JXL-H; 738212-Aaqcotmbcttis; 435282-Wkfkwwskyge, Total; 029499-PEZ-V (Total);333133-Dgmyx LDL-P; 331946-FJN Size; 775361-FF-VV Scorewas developed and its performance characteristics determinedby HERMEL DELOR. It has not been cleared or approved by the Foodand Drug Administration.PATIENT WAS FASTINGPERFORMED BY: [employer] [address] [id number] BY: Bioceros70 Tamayo Synt[facility] MedicalUNC [facility] Caldwell [id number] Potassium [Moles/Vol] 4.8 mmol/L Normal 3.5-5.2 [facility] Internal Medicine Work Phone: Comment on above: Test(s) 234186-JQN-V ; 874131-ICJ-H; 273990-FDU-H; 892769-Rbkweebqwtohl; 625202-Gngcnsszhvv, Total; 857100-LTF-H (Total);716776-Ccgry LDL-P; 370442-OIS Size; 780838-UL-MG Scorewas developed and its performance characteristics determinedby HERMEL DELOR. It has not been cleared or approved by the Foodand Drug Administration.PATIENT WAS FASTINGPERFORMED BY: [employer] [address] [id number] BY: TrendBent6370 [facility] [id number] Protein [Mass/Vol] 6.8 g/dL Normal 6.0-8.5 [facility] Internal Medicine Work Phone: Comment on above: Test(s) 312032-SSX-I ; 442609-UDW-C; 983609-YEF-J; 879575-Dceaxiabhkpxj; 451876-Hgsudaliihs, Total; 940386-WOZ-W (Total);110757-Watxv LDL-P; 298510-SSE Size; 404305-DW-LD Scorewas developed and its performance characteristics determinedby HERMEL DELOR. It has not been cleared or approved by the Foodand Drug Administration.PATIENT WAS FASTINGPERFORMED BY: [employer] [address] [id number] BY: [employer]70 [facility] [id number] Sodium [Moles/Vol] 141 mmol/L Normal 134-144 [facility] Internal Medicine Work Phone: Comment on above: Test(s) 067014-EMR-J ; 799280-ZRP-C; 373346-ONK-F; 722869-Ixqakjbqsqnis; 636947-Nqljkxoeaqh, Total; 146822-LXG-R (Total);287504-Husby LDL-P; 432632-AEP Size; 674968-GI-FH Scorewas developed and its performance characteristics determinedby HERMEL DELOR. It has not been cleared or approved by the Foodand Drug Administration.PATIENT WAS FASTINGPERFORMED BY: [employer] [id number] BY: [employer]70 [facility] [id number] Urea nitrogen [Mass/Vol] 12 mg/dL Normal 8- [facility] Internal Medicine Work Phone: Comment on above: Test(s) 312865-WFH-I ; 095503-PPO-H; 768026-OXO-V; 419176-Bhhdgtqncaeqk; 875982-Cmpacyrfhbt, Total; 285560-PIO-P (Total);866827-Qeqgp LDL-P; 315039-TLL Size; 298741-JR-SV Scorewas developed and its performance characteristics determinedby HERMEL DELOR. It has not been cleared or approved by the Foodand Drug Administration.PATIENT WAS FASTINGPERFORMED BY: [employer] [address] [id number] BY: CYPHER Udrjbr1991 [facility] [id number] Urea nitrogen/Creatinine [Mass ratio] 16 mg/mg Normal 12- [facility] Work Phone: Comment on above: Test(s) 086458-WMF-C ; 202399-ZJG-D; 224741-YHG-J; 497088-Juhxhvaxbggnp; 017874-Roxnzlcnnqc, Total; 898640-LCJ-W (Total);532357-Rfcpf LDL-P; 182629-LLK Size; 541302-QL-CD Scorewas developed and its performance characteristics determinedby HERMEL DELOR. It has not been cleared or approved by the Foodand Drug Administration.PATIENT WAS FASTINGPERFORMED BY: [employer] [address] [id number] BY: Bioc[employer]70 [facility] [id number] MICROALBUMINOrdered By: Syst em Tape Librarian on 10-26-2019 Albumin DL <= 20 mg/L (U) [Mass/Vol] 14.8 ug/mL Normal [facility] Work Phone: Comment on above: Test(s) 545161-UND-K ; 539039-ESN-D; 500724-FPA-B; 966640-Nlelxfvwvopgm; 028718-Zibvrzxjukm, Total; 218462-BEE-G (Total);624568-Zzjmn LDL-P; 897663-BIK Size; 723147-WD-GA Scorewas developed and its performance characteristics determinedby HERMEL DELOR. It has not been cleared or approved by the Foodand Drug Administration.PATIENT WAS FASTINGPERFORMED BY: [employer] [address] [id number] BY: Bioceros70 [facility] [id number] Albumin/Creatinine (U) [Mass ratio] 35 {mg/g_creat} Abnormal 0-29 [facility] Work Phone: Comment on above: Normal: 0 - 29 Moder ately increased: 30 - 300 Severely increased: >300 Please note reference interval change Test(s) 535708-NXS-A ; 360092-VVM-E; 707112-ROW-E; 434002-Pjyoowhvpxzjf; 203402-Drxvofpipme, Total; 511367-QNM-I (Total);555550-Xtkso LDL-P; 282396-YCG Size; 863502-JZ-VQ Scorewas developed and its performance characteristics determinedby HERMEL DELOR. It has not been cleared or approved by the Foodand Drug Administration.PATIENT WAS FASTINGPERFORMED BY: [employer] [address] [id number] BY: Bioceros70 DocASAPUNC Health Caldwell [id number] Creatinine (U) [Mass/Vol] 42.4 mg/dL Normal [facility] Work Phone: Comment on above: Test(s) 439982-IAL-A ; 582982-CIO-J; 890354-RIK-M; 211528-Elzakfjbomzve; 906269-Rfasejlhyay, Total; 392063-RFB-Y (Total);564065-Yjily LDL-P; 185724-CMV Size; 418306-FM-DS Scorewas developed and its performance characteristics determinedby HERMEL DELOR. It has not been cleared or approved by the Foodand Drug Administration.PATIENT WAS FASTINGPERFORMED BY: [employer] [address] [id number] BY: Bioceros70 Tamayo Syntilla MedicalUNC [facility] [id number] NMR Profile (20101)Ordered B y: Proctologist on 10-26-2019 Cholesterol [Mass/Vol] 179 mg/dL Normal 100-199 [facility] Internal Medicine Work Phone: Comment on above: Test(s) 330083-OXS-U ; 254386-YRY-C; 779729-AVR-G; 446429-Hplvlxrbkxbpq; 596727-Bfdsghyjkcz, Total; 993187-TNM-G (Total);961733-Hqwkn LDL-P; 169698-WOF Size; 638693-DH-FR Scorewas developed and its performance characteristics determinedby HERMEL DELOR. It has not been cleared or approved by the Foodand Drug Administration.PATIENT WAS FASTINGPERFORMED BY: [employer] [address] [id number] BY: Bioceros70 [facility] [id number] Lipoprotein.alpha [Moles/Vol] 44.0 umol/L Normal [facility] Internal Medicine Work Phone: Comment on above: Test(s) 935236-ZGQ-Q ; 014079-ZRC-L; 224244-ZUM-Q; 402323-Sqqmnaifjayme; 081993-Ewmcuxhmibg, Total; 197083-SVQ-B (Total);388257-Cduvq LDL-P; 104153-OJZ Size; 218381-KV-XC Scorewas developed and its performance characteristics determinedby [employer]. It has not been cleared or approved by the Foodand Drug Administration.PATIENT WAS FASTINGPERFORMED BY: BN LabCoMibio Bxtxkvfptr4737 [facility] [id number] BY: CB [facility] Dsllln1941 [facility] [id number] Lipoprotein.beta.subpar ticle [Entitic length] 21.1 nm Normal [facility] Internal [facility] Work Phone: Comment on above: [...] <-Small (Pattern B)-> 23.0 20.6 20.5 19.0 Smal l LDL-P and LDL Size are associated with CVD risk, but not afterLDL-P is taken into account. Test(s) 531600-WXT-B ; 151595-PRG-V; 859757-XTP-A; 036592-Ebbkgczwidmdn; 232355-Nzgsbdtgnpc, Total; 291410-GKG-V (Total);118896-Efxay LDL-P; 312316-OEQ Size; 366544-NO-JU Scorewas developed and its performance characteristics determinedby HERMEL DELOR. It has not been cleared or approved by the Foodand Drug Administration.PATIENT WAS FASTINGPERFORMED BY: HERMEL DELOR [address] [id number] BY: HERMEL DELOR Ryyjtc2874 [facility] [id number] Lipoprotein.beta.subpar ticle [Moles/Vol] 780 nmol/L Normal [facility] Work Phone: Comment on above: Low < 1000 Moderate 1000 - 1299 Borderline-High 1300 - 1599 High 1600 - 2000 Very High > 2000 Test(s) 593713-YTR-L ; 330257-HMH-W; 794321-HZK-Y; 195768-Tdwxcfmcdxiqp; 502072-Dzebsobahpy, Total; 364428-LYK-I (Total);312393-Tlwql LDL-P; 791432-GDK Size; 885834-LI-FU Scorewas developed and its performance characteristics determinedby HERMEL DELOR. It has not been cleared or approved by the Foodand Drug Administration.PATIENT WAS FASTINGPERFORMED BY: BodyGuardz[address] [id number] BY: Tymphanylin6370 [facility] [id number] Lipoprotein.beta.subpar ticle.small [Moles/Vol] 409 nmol/L Normal Comprehe [facility] Internal Medicine Work Phone: Comment on above: Test(s) 515209-FLG-T ; 825367-FST-P; 960718-GNT-Y; 011985-Jddyqjxidvjew; 338832-Czbtvpbymqt, Total; 371656-YTV-C (Total);667934-Pvoqo LDL-P; 100614-YKA Size; 072270-YU-DG Scorewas developed and its performance characteristics determinedby HERMEL DELOR. It has not been cleared or approved by the Foodand Drug Administration.PATIENT WAS FASTINGPERFORMED BY: [employer] [address] [id number] BY: Advanced Catheter TherapiesTohatchi Health Care CenterMqqkpj9405 [facility] [id number] Triglyceride [Mass/Vol] 131 mg/dL Normal 0-149 [facility] Work Phone: Comment on above: Test(s) 898841-AVD-Z ; 603694-CGB-N; 997292-NIR-W; 962699-Setkqbiqtoevm; 362550-Vuhgvwcodkg, Total; 833123-SEX-X (Total);389800-Jjzch LDL-P; 427930-LPL Size; 982122-FK-TB Scorewas developed and its performance characteristics determinedby HERMEL DELOR. It has not been cleared or approved by the Foodand Drug Administration.PATIENT WAS FASTINGPERFORMED BY: [employer] [id number] BY: CYPHER Nrnxfv1692 [facility] [id number] NMR Profile (32883) 72 mg/dL Normal [facility] Internal Medicine Work Phone: Comment on above: Test(s) 621692-IJG-M ; 700506-NZA-W; 035890-HGY-R; 875122-Ljmrxhmtyascn; 860070-Ovgtitnkmbt, Total; 407785-ZBE-K (Total);497995-Hxtpk LDL-P; 282658-TEB Size; 176201-IL-BC Scorewas developed and its performance characteristics determinedby HERMEL DELOR. It has not been cleared or approved by the Foodand Drug Administration.PATIENT WAS FASTINGPERFORMED BY: [employer] [address] [id number] BY: BodyGuardzRunnells Specialized HospitalZmzlfs2519 [facility] [id number] NMR Profile (71081) 81 mg/dL Normal 0-99 [facility] Internal Medicine Work Phone: Comment on above: . Optimal < 100 Abov e optimal 100 - 129 Borderline 130 - 159 High 160 - 189 Very high > 189 .Effective October 31, 2019, HERMEL DELOR is implementing an improvedequation to calculate Low Density Lipoprotein Cholesterol (LDL-C)concentrations, to be used in all lipid panels that report calculatedLDL-C. This equation was developed through a collaboration with [facility] ([facility]).[1] The NIHcalculation overcomes the limitations of the existing FriedewaldLDL-C equation and performs equally well in both fasting andnon-fasting individuals.1. Valentin M, Brenda Georges, Brigida Q, et al. A new equation forcalculation of low-density lipoprotein cholesterol inpatients with normolipidemia and/or hypertriglyceridemia.RAMAN Cardiol. 2019Apr 27. Doi:10.1001/jamacardio.2020.0013.LDL-C is inaccurate if patient is non-fasting. Test(s) 685448-UMV-T ; 547331-VCG-O; 029272-SYG-M; 818390-Nmbwxobozkvyq; 846319-Elexaaxsjbr, Total; 114119-HXK-H (Total);367523-Ncvkp LDL-P; 086125-LZB Size; 988322-MW-DT Scorewas developed and its performance characteristics determinedby HERMEL DELOR. It has not been cleared or approved by the Foodand Drug Administration.PATIENT WAS FASTINGPERFORMED BY: HERMEL DELOR [address] [id number] BY: HERMEL DELOR Xwqfqw3914 [facility] [id number] TSH (91203)Ordered By: Mis fields Tape Librarian on 10-26-2019 TSH Qn 0.807 {uIU/mL} Normal 0.450-4.500 Meli vasquez Internal Medicine Work Phone: Comment on above: Test(s) 283252-EBW-J ; 460407-XIH-K; 022807-XDB-B; 088117-Jjchvsattmxmg; 336333-Sxderxeclok, Total; 310365-GPQ-G (Total);315873-Hioqn LDL-P; 994391-ELI Size; 719260-LU-HJ Scorewas developed and its performance characteristics determinedby HERMEL DELOR. It has not been cleared or approved by the Foodand Drug Administration.PATIENT WAS FASTINGPERFORMED BY: [employer] [address] [id number] BY: BodyGuardz Axsmzm6361 [facility] [id number] URINALYSIS, W/ MICRO (71480) Ordered By: Proctologist on 10-26-2019 Appearance (U) Clear Normal Comprehens estela Internal Medicine Work Phone: Comment on above: Test(s) 806203-FUU-G ; 474509-VPT-B; 116928-RAP-X; 518537-Pnxopxadnxkhl; 831789-Nvuvnlfgnwd, Total; 839574-KUO-Y (Total);842769-Lrstg LDL-P; 001785-JIK Size; 763889-FV-VO Scorewas developed and its performance characteristics determinedby HERMEL DELOR. It has not been cleared or approved by the Foodand Drug Administration.PATIENT WAS FASTINGPERFORMED BY: [employer] [address] [id number] BY: [employer]6370 Tamayo Syntilla MedicalUNC [facility] [id number] Bilirubin Ql (U) Negative Normal Comprehe nsive Internal Medicine Work Phone: Comment on above: Test(s) 249366-FFM-T ; 099514-XYO-G; 462092-VTH-C; 509901-Qthkatmsrlltm; 188519-Vxitqzjccbx, Total; 296027-DKF-S (Total);794430-Rpzuz LDL-P; 635831-APL Size; 300780-LV-DH Scorewas developed and its performance characteristics determinedby HERMEL DELOR. It has not been cleared or approved by the Foodand Drug Administration.PATIENT WAS FASTINGPERFORMED BY: [employer] [address] [id number] BY: BodyGuardzTohatchi Health Care CenterGezpsk4568 [facility] [id number] Bilirubin Ql (U) Negative Normal Comprehe nsive Internal Medicine; [facility] Work Phone: Comment on above: Test(s) 970954-MQJ-R ; 176233-IXY-I; 974475-KDW-L; 057946-Cfhkddgyqhsih; 389126-Cksyzvxoswb, Total; 573017-CRI-R (Total);870512-Bpwij LDL-P; 821159-PFH Size; 659996-SP-WN Scorewas developed and its performance characteristics determinedby HERMEL DELOR. It has not been cleared or approved by the Foodand Drug Administration.PATIENT WAS FASTINGPERFORMED BY: [employer] [id number] BY: TrendBent6370 [facility] [id number] Color (U) Yellow Normal [facility] Internal Medicine Work Phone: Comment on above: Test(s) 651306-BYZ-H ; 970688-FVP-Z; 171437-GBM-C; 640070-Vvxujpqequkrw; 099033-Fszuvingukp, Total; 907265-REY-H (Total);813760-Wsjsj LDL-P; 175356-IAZ Size; 648888-WD-NL Scorewas developed and its performance characteristics determinedby HERMEL DELOR. It has not been cleared or approved by the Foodand Drug Administration.PATIENT WAS FASTINGPERFORMED BY: [employer] [address] [id number] BY: CYPHER Wdpwrz3949 [facility] [id number] Glucose Ql (U) Negative Normal [facility] Internal Medicine Work Phone: Comment on above: Test(s) 038722-PYS-G ; 280106-DWF-X; 733467-MJM-U; 239632-Zaummkohggyum; 631772-Qzzhaydywvj, Total; 149116-IXQ-Q (Total);550039-Cjais LDL-P; 521487-MKB Size; 630609-DV-YJ Scorewas developed and its performance characteristics determinedby HERMEL DELOR. It has not been cleared or approved by the Foodand Drug Administration.PATIENT WAS FASTINGPERFORMED BY: [employer] [id number] BY: TrendBent6370 [facility] [id number] Glucose Ql (U) Negative Normal Comprehens estela Internal Medicine; [facility] Work Phone: Comment on above: Test(s) 088359-TQZ-O ; 561787-BIF-R; 811815-TCH-R; 581741-Cbymnpvyboygf; 388614-Vgcucsnqcqe, Total; 393898-GSF-J (Total);609700-Bvvie LDL-P; 128580-PDF Size; 181799-JS-KX Scorewas developed and its performance characteristics determinedby HERMEL DELOR. It has not been cleared or approved by the Foodand Drug Administration.PATIENT WAS FASTINGPERFORMED BY: [employer] [address] [id number] BY: TrendBent6370 [facility] [id number] Hemoglobin Ql (U) Negative Normal Compreh ensive Internal Medicine Work Phone: Comment on above: Test(s) 711411-VDC-P ; 068297-BUO-Q; 037522-NER-R; 682573-Jvlxeecjzfytj; 633831-Qnugqqkoqfr, Total; 154466-FBE-D (Total);617206-Mekwy LDL-P; 551926-LXA Size; 171796-NA-FL Scorewas developed and its performance characteristics determinedby HERMEL DELOR. It has not been cleared or approved by the Foodand Drug Administration.PATIENT WAS FASTINGPERFORMED BY: [employer] [address] [id number] BY: CYPHER Prsshb6280 [facility] [id number] Hemoglobin Ql (U) Negative Normal Compreh ensive Internal Medicine; [facility] Work Phone: Comment on above: Test(s) 420841-IWF-N ; 242946-DTF-H; 796529-VQE-C; 805998-Zjoluigkdcgjz; 968698-Qkkxgjkwgqr, Total; 487814-ODP-J (Total);110010-Ukmrx LDL-P; 941468-VDL Size; 556719-NM-QI Scorewas developed and its performance characteristics determinedby HERMEL DELOR. It has not been cleared or approved by the Foodand Drug Administration.PATIENT WAS FASTINGPERFORMED BY: [employer] [address] [id number] BY: TrendBent6370 [employer] [id number] Ketones Ql (U) Negative Normal Comprehens estela Internal Medicine Work Phone: Comment on above: Test(s) 142315-HQV-E ; 009964-JCJ-N; 171208-KZY-D; 114133-Iskhleueuninu; 417358-Uwqzbngihoy, Total; 927941-RBF-T (Total);504354-Bxqsf LDL-P; 118302-IUO Size; 525239-RO-OE Scorewas developed and its performance characteristics determinedby HERMEL DELOR. It has not been cleared or approved by the Foodand Drug Administration.PATIENT WAS FASTINGPERFORMED BY: [employer] [address] [id number] BY: TrendBent6370 [employer] [id number] Ketones Ql (U) Negative Normal Comprehens estela Internal [facility]; [facility] Work Phone: Comment on above: Test(s) 173450-BTI-G ; 578836-DYQ-K; 626879-YJR-J; 292484-Uyldqtkovycrr; 352647-Qiznzmkwxjf, Total; 577441-SWY-G (Total);673878-Jfehb LDL-P; 488901-QAI Size; 783269-OB-JJ Scorewas developed and its performance characteristics determinedby HERMEL DELOR. It has not been cleared or approved by the Foodand Drug Administration.PATIENT WAS FASTINGPERFORMED BY: AK[employer]ON [employer] [address] [id number] BY: TrendBent6370 [employer] [id number] Leukocyte esterase Test strip Ql (U) 3+ Abnormal [facility] Work Phone: Comment on above: Test(s) 210611-TTX-M ; 964641-LQX-G; 596405-FGH-B; 864869-Skzmrmqzyqxuy; 103104-Gytujpbfuhr, Total; 556089-JZA-Z (Total);186022-Phrxi LDL-P; 752988-GPT Size; 642518-RV-JT Scorewas developed and its performance characteristics determinedby HERMEL DELOR. It has not been cleared or approved by the Foodand Drug Administration.PATIENT WAS FASTINGPERFORMED BY: [employer] [id number] BY: [employer]oc[employer]70 Tam[place]o Syntilla MedicalUNC Health Caldwell [id number] Microscopic observation LM Nom (Urine sed) See below: Normal [facility] Work Phone: Comment on above: Microscopic was rikki cated and was performed. Test(s) 923989-ZLE-D ; 850189-LAA-J; 675412-MWF-O; 555938-Bdmfotoeqbujj; 757313-Hdflskexcfi, Total; 993256-XCG-E (Total);252963-Xpvty LDL-P; 758503-QCX Size; 469526-PV-QE Scorewas developed and its performance characteristics determinedby HERMEL DELOR. It has not been cleared or approved by the Foodand Drug Administration.PATIENT WAS FASTINGPERFORMED BY: [employer] [address] [id number] BY: TrendBent6370 Tamayo Barefoot NetworksAtrium Health Union [id number] Nitrite Ql (U) Negative Normal Comprehens estela Internal Medicine Work Phone: Comment on above: Test(s) 463162-VAU-F ; 709960-SWE-S; 271357-QOH-C; 559669-Hryspnecawyqk; 933671-Yquoeczxcpo, Total; 365051-DXT-U (Total);057665-Hjmkl LDL-P; 337884-QOP Size; 998083-UW-LM Scorewas developed and its performance characteristics determinedby HERMEL DELOR. It has not been cleared or approved by the Foodand Drug Administration.PATIENT WAS FASTINGPERFORMED BY: BN LabCo[address] [id number] BY: BodyGuardzTohatchi Health Care CenterOhgyfn9657 [facility] [id number] Nitrite Ql (U) Negative Normal Comprehens estela [facility]; [facility] Work Phone: Comment on above: Test(s) 515576-YKP-C ; 936344-EPY-K; 967262-QPL-U; 106962-Yohkmumjbbkhp; 446191-Bqqqtczyezc, Total; 476195-NHT-W (Total);221888-Qjefv LDL-P; 268743-JRD Size; 614716-MP-GF Scorewas developed and its performance characteristics determinedby HERMEL DELOR. It has not been cleared or approved by the Foodand Drug Administration.PATIENT WAS FASTINGPERFORMED BY: [employer] [address] [id number] BY: TrendBent6370 [facility] [id number] pH (U) 8.0 [pH] Abnormal 5.0-7.5 [facility] Work Phone: Comment on above: Test(s) 022673-LPX-L ; 646828-SKL-G; 365478-WXE-R; 260480-Hbxinaqeieynd; 295661-Dmulbciddvy, Total; 401639-WLW-Q (Total);138218-Dekyc LDL-P; 241884-YDP Size; 443189-MK-LN Scorewas developed and its performance characteristics determinedby HERMEL DELOR. It has not been cleared or approved by the Foodand Drug Administration.PATIENT WAS FASTINGPERFORMED BY: [employer] [id number] BY: Advanced Catheter TherapiesRunnells Specialized HospitalDbyfoh6734 [facility] [id number] Protein Ql (U) Negative Normal Comprehens estela Internal Medicine Work Phone: Comment on above: Test(s) 752852-ATD-D ; 784126-PIU-R; 227755-QSK-H; 011804-Hzvtffvevijnu; 063531-Vswrzbrsaim, Total; 828391-PVW-W (Total);700054-Cncvf LDL-P; 391339-BBP Size; 563408-XI-BS Scorewas developed and its performance characteristics determinedby HERMEL DELOR. It has not been cleared or approved by the Foodand Drug Administration.PATIENT WAS FASTINGPERFORMED BY: [employer] [address] [id number] BY: [employer]70 [employer] [id number] Protein Ql (U) Negative Normal Comprehens [facility]; [facility] Work Phone: Comment on above: Test(s) 298704-VYM-Q ; 536750-NOL-J; 337196-ZMV-K; 049492-Cbhcpnmseczfv; 843054-Lbfqxraqlyu, Total; 943792-HDH-H (Total);742451-Kgdkz LDL-P; 139049-UGG Size; 449607-BA-SL Scorewas developed and its performance characteristics determinedby HERMEL DELOR. It has not been cleared or approved by the FoodInline.me Drug Administration.PATIENT WAS FASTINGPERFORMED BY: AKAMON [employer]TER[employer] [address] [id number] BY: Bioceros70 Tam[place]o Barefoot NetworksAtrium Health Union [id number] Specific gravity (U) [Rel density] 1.010 1 Normal 1.005-1.030 [facility] Work Phone: Comment on above: Test(s) 587735-BUZ-M ; 629822-NIB-Q; 712162-VKA-K; 932315-Clgznhphpanpp; 946109-Plloneqpchr, Total; 483798-PWV-U (Total);116130-Ojpqm LDL-P; 289013-VXF Size; 898575-XZ-WP Scorewas developed and its performance characteristics determinedby HERMEL DELOR. It has not been cleared or approved by the Foodand Drug Administration.PATIENT WAS FASTINGPERFORMED BY: AKAMON [employer]TERTAIN[employer] [address] [id number] BY: Bioceros70 Tam[place]o TrivnetAdventHealth Manchester [id number] Urobilinogen (U) [Mass/Vol] 0.2 mg/dL Normal 0.2-1.0 [facility]; [facility] Work Phone: Comment on above: Test(s) 369937-HBW-P ; 691577-YJP-E; 792151-GSZ-Y; 053832-Zwjdfdiseyltv; 748290-Ohslzcvqlrx, Total; 536856-CCB-I (Total);948536-Wtpyx LDL-P; 045419-CGS Size; 563244-OM-ER Scorewas developed and its performance characteristics determinedby HERMEL DELOR. It has not been cleared or approved by the Foodand Drug Administration.PATIENT WAS FASTINGPERFORMED BY: [employer] [id number] BY: [employer]6370 Tam[place]o [employer] [place] [id number] Urobilinogen Test strip (U) [Mass/Vol] 0.2 mg/dL Normal 0.2-1.0 [facility] Work Phone: Comment on above: Test(s) 546187-DLW-Y ; 413695-YHU-E; 734508-ODR-Z; 239819-Gawgrlhxzidua; 978349-Lbcjozffnda, Total; 127412-SYM-L (Total);622887-Mkvnk LDL-P; 535409-YFI Size; 901319-ZB-LY Scorewas developed and its performance characteristics determinedby HERMEL DELOR. It has not been cleared or approved by the Foodand Drug Administration.PATIENT WAS FASTINGPERFORMED BY: AK[employer]TER[employer] [address] [id number] BY: TrendBent6370 Tam[place]o Barefoot NetworksAtrium Health Union [id number] Blood Glucose , Office ([phone])Ordered By: Obdulia Bernard on 08-03-2019 Glucose Glucometer (BldC) [Moles/Vol] 105 1 Normal [facility] Work Phone: HgA1C , Office ([phone])Ordere d By: Obdulia Bernard on 08-03-2019 HbA1c (Bld) [Mass fraction] 6.0 % Normal 4.6 - 7.1 [facility] Work Phone: CBC W/AUTO DIFF WBC (92592)O rdered By: Proctologist on 04-21-2019 Basophils (Bld) [#/Vol] 0.0 {x10E3/uL} Normal 0.0-0.2 [facility] Work Phone: Comment on above: Test(s) 746272-OLD-K ; 377467-LHX-O; 327573-VKL-V; 945833-Evqvucxslrzfd; 682605-Cylciaymbow, Total; 411814-GKS-M (Total);839038-Frryk LDL-P; 631340-DMU Size; 781150-PU-EH Scorewas developed and its performance characteristics determinedby HERMEL DELOR. It has not been cleared or approved by the Foodand Drug Administration.PATIENT WAS FASTINGPERFORMED BY: Buz [facility] [id number] BY: Bioceros70 Tam[place]o Syntilla MedicalUNC Health Caldwell [id number] Basophils (Bld) [#/Vol] 0.0 10*3/uL Normal 0.0-0.2 [facility]; [facility] Work Phone: Comment on above: Test(s) 504484-JLE-O ; 481985-KRS-G; 746611-QJU-A; 674038-Qhesjozaavffg; 289600-Ntupiqmqdrg, Total; 356848-ZYA-R (Total);567707-Yedfw LDL-P; 549784-KAN Size; 877168-IP-JL Scorewas developed and its performance characteristics determinedby HERMEL DELOR. It has not been cleared or approved by the Foodand Drug Administration.PATIENT WAS FASTINGPERFORMED BY: Buz [facility] [id number] BY: TrendBent6370 DocASAPUNC Health Caldwell [id number] Basophils/100 WBC (Bld) 1 % Normal C omprehensive [facility] Medicine Work Phone: Comment on above: Test(s) 764336-TXC-P ; 088929-WCZ-E; 495894-HEI-P; 690436-Tugbnlteputip; 824534-Faqzlccljkh, Total; 119753-RFV-N (Total);481023-Jhizj LDL-P; 746115-ITT Size; 569832-RI-OK Scorewas developed and its performance characteristics determinedby HERMEL DELOR. It has not been cleared or approved by the Foodand Drug Administration.PATIENT WAS FASTINGPERFORMED BY: HERMEL DELOR [address] [id number] BY: HERMEL DELOR Ddbyyu5076 [facility] [id number] Eosinophils (Bld) [#/Vol] 0.1 {x10E3/uL} Normal 0.0-0.4 [facility] Work Phone: Comment on above: Test(s) 314439-PSX-E ; 642955-VOL-W; 857271-WZK-J; 971947-Wltjpsgumknxc; 372878-Nhievfnnolj, Total; 331953-GKB-N (Total);093638-Whnls LDL-P; 180549-UPZ Size; 408058-WD-QB Scorewas developed and its performance characteristics determinedby HERMEL DELOR. It has not been cleared or approved by the Foodand Drug Administration.PATIENT WAS FASTINGPERFORMED BY: HERMEL DELOR [address] [id number] BY: BodyGuardzRunnells Specialized HospitalZsdwnh1789 [facility] [id number] Eosinophils (Bld) [#/Vol] 0.1 10*3/uL Normal 0.0-0.4 [facility]; [facility] Work Phone: Comment on above: Test(s) 942138-TUL-D ; 187862-NOC-T; 412028-WWV-T; 164496-Rkavnyqjksivv; 978622-Xriyybxleqp, Total; 474061-SPI-C (Total);764882-Mdqaa LDL-P; 922184-ICU Size; 986750-GP-QM Scorewas developed and its performance characteristics determinedby HERMEL DELOR. It has not been cleared or approved by the Foodand Drug Administration.PATIENT WAS FASTINGPERFORMED BY: AKAMON [employer]TER[employer] [address] [id number] BY: Bioceros70 [facility] [id number] Eosinophils/100 WBC (Bld) 1 % Normal [facility] Work Phone: Comment on above: Test(s) 794663-ZWR-T ; 378660-IKD-K; 389067-GPP-J; 905419-Ngjwrasdzcsiu; 788845-Mrmtspgjclp, Total; 911396-BIG-O (Total);411327-Vtmqt LDL-P; 969534-KRK Size; 093954-KO-IW Scorewas developed and its performance characteristics determinedby HERMEL DELOR. It has not been cleared or approved by the Foodand Drug Administration.PATIENT WAS FASTINGPERFORMED BY: AKAMON [employer]TER[employer] [address] [id number] BY: TrendBent6370 [facility] [id number] Erythrocyte distribution width (RBC) [Ratio] 12.8 % Normal 11.7-15.4 [facility] Work Phone: Comment on above: Test(s) 105862-BBH-I ; 979546-VPJ-H; 784208-NNM-L; 282778-Fheaemcwbsyux; 776648-Knbgcrpwymt, Total; 803481-QBS-K (Total);576755-Acpin LDL-P; 110246-YSD Size; 575386-GA-KE Scorewas developed and its performance characteristics determinedby HERMEL DELOR. It has not been cleared or approved by the Foodand Drug Administration.PATIENT WAS FASTINGPERFORMED BY: AKAMON [employer]TERTAIN[employer] [address] [id number] BY: CYPHER Xbkefp9216 [facility] [id number] Hematocrit (Bld) [Volume fraction] 41.7 % Normal 34.0-46.6 [facility] Work Phone: Comment on above: Test(s) 845468-ISJ-N ; 188395-MAR-Y; 011603-TEK-H; 832060-Jsgpefuouswvi; 150211-Nerpemjroeg, Total; 088564-BJK-V (Total);590301-Oxmez LDL-P; 989495-RJD Size; 766663-CQ-SW Scorewas developed and its performance characteristics determinedby HERMEL DELOR. It has not been cleared or approved by the Foodand Drug Administration.PATIENT WAS FASTINGPERFORMED BY: AK[employer]TER[employer] [address] [id number] BY: HERMEL DELOR Dfbhaz1217 [facility] [id number] Hemoglobin (Bld) [Mass/Vol] 13.4 g/dL Normal 11.1-15.9 [facility] Work Phone: Comment on above: Test(s) 362648-XHU-Q ; 355774-EET-D; 563863-KOK-V; 636983-Qpswurljwcwux; 269321-Egrcxvcngli, Total; 693140-LZZ-J (Total);997395-Nbeqp LDL-P; 826525-KLP Size; 520549-DU-XZ Scorewas developed and its performance characteristics determinedby HERMEL DELOR. It has not been cleared or approved by the Foodand Drug Administration.PATIENT WAS FASTINGPERFORMED BY: HERMEL DELOR [address] [id number] BY: HERMEL DELOR Clasoc0946 [facility] [id number] Immature granulocytes (Bld) [#/Vol] 0.0 {x10E3/uL} Normal 0.0-0.1 [facility] Work Phone: Comment on above: Test(s) 844037-DAE-N ; 853170-TFN-Y; 596515-TKD-H; 468631-Sgnlyhsfqfpzi; 448186-Higtmzqwnbf, Total; 005356-TBI-Y (Total);020682-[place] LDL-P; 415274-LVS Size; 492155-LU-WK Scorewas developed and its performance characteristics determinedby HERMEL DELOR. It has not been cleared or approved by the Foodand Drug Administration.PATIENT WAS FASTINGPERFORMED BY: [employer] [id number] BY: BodyGuardz Msbqat5903 [facility] [id number] Immature granulocytes (Bld) [#/Vol] 0.0 10*3/uL Normal 0.0-0.1 [facility]; [facility] Work Phone: Comment on above: Test(s) 133491-VFR-F ; 856668-BKU-Q; 922585-HNJ-Y; 861128-Nyezbzvplyzes; 860202-Baqhdxpkvhy, Total; 349973-AZN-U (Total);817877-Izuib LDL-P; 296824-PKL Size; 272373-CF-CJ Scorewas developed and its performance characteristics determinedby HERMEL DELOR. It has not been cleared or approved by the Foodand Drug Administration.PATIENT WAS FASTINGPERFORMED BY: AKAMON [employer]TERTAIN[employer] [address] [id number] BY: Bioceros70 Tam[place]o Syntilla MedicalUNC Health Caldwell [id number] Immature granulocytes/100 WBC (Bld) 0 % Normal [facility] Work Phone: Comment on above: Test(s) 017618-VPE-I ; 242246-LJN-I; 539402-WMV-P; 116909-Zjstgwwhdxgxg; 802561-Gjzcpjbhtzf, Total; 285859-SWS-Q (Total);915568-Xjyfy LDL-P; 599939-ADO Size; 925035-XB-OO Scorewas developed and its performance characteristics determinedby HERMEL DELOR. It has not been cleared or approved by the Foodand Drug Administration.PATIENT WAS FASTINGPERFORMED BY: AKAMON ENTERTAIN[employer] [address] [id number] BY: BodyGuardzRunnells Specialized HospitalElegaw3007 [place] Syntilla MedicalUNC Health Caldwell [id number] Lymphocytes (Bld) [#/Vol] 1.6 {x10E3/uL} Normal 0.7-3.1 [facility] Work Phone: Comment on above: Test(s) 340011-ENA-E ; 270278-HTP-G; 607812-CMZ-C; 086863-Spmwitvfegxdz; 999526-Trcalzsalor, Total; 457856-AKX-S (Total);155607-Czuzw LDL-P; 546837-OFI Size; 052560-FA-XE Scorewas developed and its performance characteristics determinedby HERMEL DELOR. It has not been cleared or approved by the Foodand Drug Administration.PATIENT WAS FASTINGPERFORMED BY: HERMEL DELOR [address] [id number] BY: HERMEL DELOR Nfgvac8704 [facility] [id number] Lymphocytes (Bld) [#/Vol] 1.6 10*3/uL Normal 0.7-3.1 [facility]; [facility] Work Phone: Comment on above: Test(s) 694504-NYI-D ; 126428-MEO-N; 617188-WVJ-S; 329197-Sucquvdauvufd; 140208-Mmongklfahr, Total; 464304-TAI-E (Total);904427-Mcacw LDL-P; 043924-YMM Size; 941067-NA-OY Scorewas developed and its performance characteristics determinedby HERMEL DELOR. It has not been cleared or approved by the Foodand Drug Administration.PATIENT WAS FASTINGPERFORMED BY: HERMEL DELOR [address] [id number] BY: TrendBent6370 [facility] [id number] Lymphocytes/100 WBC (Bld) 29 % Normal [facility] Work Phone: Comment on above: Test(s) 018383-BHH-F ; 336694-GVZ-G; 587702-VXQ-X; 012147-Nsouwdzowkqqo; 947107-Pihcsoetmej, Total; 001040-VEC-C (Total);946865-Wmfog LDL-P; 113156-SBL Size; 072962-SD-RP Scorewas developed and its performance characteristics determinedby HERMEL DELOR. It has not been cleared or approved by the Foodand Drug Administration.PATIENT WAS FASTINGPERFORMED BY: [employer] [id number] BY: [employer] Srxufs6355 Tam[place]o Barefoot NetworksAtrium Health Union [id number] MCH (RBC) [Entitic mass] 29.3 pg Normal 26.6-33.0 [facility] Internal Medicine Work Phone: Comment on above: Test(s) 697626-IWZ-Y ; 533245-KES-P; 633024-IZK-V; 208468-Dbdosfayzhxbi; 812385-Dnrkkfwpnhr, Total; 805324-ESA-N (Total);917217-Ahrqh LDL-P; 983189-EEJ Size; 251219-BP-MI Scorewas developed and its performance characteristics determinedby HERMEL DELOR. It has not been cleared or approved by the Foodand Drug Administration.PATIENT WAS FASTINGPERFORMED BY: [employer] [id number] BY: Bioceros70 CoxhealthMarginPointAtrium Health Union [id number] MCHC (RBC) [Mass/Vol] 32.1 g/dL Normal 31.5-35.7 [facility] Internal Medicine Work Phone: Comment on above: Test(s) 527778-AIP-M ; 213928-TVJ-N; 184532-DBX-Z; 544971-Ihhriolwtagxf; 612389-Ruivemtivbv, Total; 223533-FZL-E (Total);126468-Gnyzs LDL-P; 347434-UTW Size; 006411-DD-RQ Scorewas developed and its performance characteristics determinedby HERMEL DELOR. It has not been cleared or approved by the Foodand Drug Administration.PATIENT WAS FASTINGPERFORMED BY: AKAMON ENTERTAIN[employer] [address] [id number] BY: [employer] Ydpudt6000 [facility] [id number] MCV (RBC) [Entitic vol] 91 fL Normal 79-97 C [facility] Internal Medicine Work Phone: Comment on above: Test(s) 061674-QJN-Z ; 158193-YIY-U; 409367-YUT-S; 055431-Jbxxcjspmvsxl; 804807-Untbudqzprp, Total; 349189-XLD-L (Total);597010-Jznmo LDL-P; 176721-SNB Size; 924169-UT-WB Scorewas developed and its performance characteristics determinedby HERMEL DELOR. It has not been cleared or approved by the Foodand Drug Administration.PATIENT WAS FASTINGPERFORMED BY: BodyGuardz[address] [id number] BY: BodyGuardzBrandon Ville 5389670 [facility] [id number] Monocytes (Bld) [#/Vol] 0.6 {x10E3/uL} Normal 0.1-0.9 [facility] Work Phone: Comment on above: Test(s) 076706-PXQ-O ; 095309-EDS-X; 648875-LHW-P; 761389-Hvtkgiicuvxno; 482546-Dqimfxquaen, Total; 559778-ARX-M (Total);468878-Sbfjx LDL-P; 153136-KZZ Size; 257568-XN-UX Scorewas developed and its performance characteristics determinedby HERMEL DELOR. It has not been cleared or approved by the Foodand Drug Administration.PATIENT WAS FASTINGPERFORMED BY: BodyGuardz[address] [id number] BY: BodyGuardzRunnells Specialized HospitalJjpiwf1344 [facility] [id number] Monocytes (Bld) [#/Vol] 0.6 10*3/uL Normal 0.1-0.9 [facility]; [facility] Work Phone: Comment on above: Test(s) 079237-WBD-W ; 734996-FFV-E; 354354-ILT-E; 188585-Phjeukaiaurtw; 873521-Ggvbnkqpegu, Total; 812408-TAM-Q (Total);233106-Uepqx LDL-P; 647455-PQI Size; 347392-CT-AS Scorewas developed and its performance characteristics determinedby HERMEL DELOR. It has not been cleared or approved by the Foodand Drug Administration.PATIENT WAS FASTINGPERFORMED BY: AKAMON ENTERTAIN[employer] [address] [id number] BY: [employer] Gwcczf8216 Tam[place]o Barefoot NetworksAtrium Health Union [id number] Monocytes/100 WBC (Bld) 10 % Normal C ompunm [facility] Internal Medicine Work Phone: Comment on above: Test(s) 999516-QYA-S ; 732535-TJG-B; 786232-YTN-R; 172487-Kqhjwjvgbkyik; 921178-Sildqloqpqg, Total; 053684-UOD-B (Total);022162-Wanqi LDL-P; 541503-WXS Size; 307427-VH-BB Scorewas developed and its performance characteristics determinedby HERMEL DELOR. It has not been cleared or approved by the Foodand Drug Administration.PATIENT WAS FASTINGPERFORMED BY: [employer] [id number] BY: TrendBent6370 [facility] [id number] Neutrophils (Bld) [#/Vol] 3.3 {x10E3/uL} Normal 1.4-7.0 [facility] Work Phone: Comment on above: Test(s) 136050-SSU-F ; 396524-GFL-P; 915802-EWW-G; 011539-Kyezfuphkkgss; 084151-Lrgemuvmbmu, Total; 277208-JCX-F (Total);626791-Yjdrp LDL-P; 918297-VXQ Size; 078710-DQ-ND Scorewas developed and its performance characteristics determinedby HERMEL DELOR. It has not been cleared or approved by the Foodand Drug Administration.PATIENT WAS FASTINGPERFORMED BY: AKAMON [employer]TERTAIN[employer] [address] [id number] BY: BodyGuardzRunnells Specialized HospitalQcizdb8664 [facility] [id number] Neutrophils (Bld) [#/Vol] 3.3 10*3/uL Normal 1.4-7.0 [facility]; [facility] Work Phone: Comment on above: Test(s) 798496-RKR-D ; 619012-RLB-P; 552055-VIG-V; 403529-Krrclzwwypmop; 776515-Xtwbiljcora, Total; 527315-JHL-R (Total);091726-Kbkld LDL-P; 903776-NUL Size; 870312-WD-LH Scorewas developed and its performance characteristics determinedby HERMEL DELOR. It has not been cleared or approved by the Foodand Drug Administration.PATIENT WAS FASTINGPERFORMED BY: AKAMON [employer]TER[employer] [address] [id number] BY: Bioc[employer]70 [facility]ayoJohn [facility]. [facility] [id number] Neutrophils/100 WBC (Bld) 59 % Normal [facility] Work Phone: Comment on above: Test(s) 761470-HNN-E ; 082915-GBQ-S; 225892-DZS-B; 721630-Fhvtlewxyezcu; 960335-Ommgqnmkydm, Total; 893937-KBL-R (Total);032887-Uppnk LDL-P; 367058-DTM Size; 165970-ZY-MR Scorewas developed and its performance characteristics determinedby HERMEL DELOR. It has not been cleared or approved by the Foodand Drug Administration.PATIENT WAS FASTINGPERFORMED BY: AKAMON [employer]TER[employer] [address] [id number] BY: TrendBent6370 TamayoJohn J. Pershing [facility] [id number] Platelets (Bld) [#/Vol] 339 {x10E3/uL} Normal 150-450 [facility] Work Phone: Comment on above: Test(s) 764045-MXB-A ; 746346-JWI-U; 302471-XJN-U; 104149-Rnrkexrqibyrm; 776602-Trtqtvzjadl, Total; 100702-BXM-Q (Total);448049-Tpocf LDL-P; 963574-ZLH Size; 891519-ZX-SX Scorewas developed and its performance characteristics determinedby HERMEL DELOR. It has not been cleared or approved by the Foodand Drug Administration.PATIENT WAS FASTINGPERFORMED BY: [employer] Care Internationalrp Dqmomietup3041 [facility] [id number] BY: [facility] Utveeh2265 Tam[place]o Barefoot NetworksAtrium Health Union [id number] Platelets (Bld) [#/Vol] 339 10*3/uL Normal 150-450 [facility] Internal Medicine; [facility] Internal Medicine Work Phone: Comment on above: Test(s) 341791-OJF-T ; 311873-YJS-N; 625877-BDG-T; 908515-Jdnnzhvkpzduf; 361176-Wuxyhhpmbov, Total; 654757-ZTE-S (Total);178081-Obwgb LDL-P; 352076-RGI Size; 829859-RW-GD Scorewas developed and its performance characteristics determinedby HERMEL DELOR. It has not been cleared or approved by the Foodand Drug Administration.PATIENT WAS FASTINGPERFORMED BY: [employer] Care Internationalrp Cqrwaovbxu6931 [facility] [id number] BY: Advanced C[employer]ter Therapiesrp Twajsv8341 [facility] [id number] RBC (Bld) [#/Vol] 4.57 {x10E6/uL} Normal 3.77-5.28 [facility] Internal [facility] Work Phone: Comment on above: Test(s) 842742-UKW-Q ; 901756-NYO-J; 247234-SYR-E; 756008-Nbgdvirzpgtaw; 017446-Pjoptjysvdh, Total; 051892-CXX-F (Total);959505-Cvmtt LDL-P; 866794-LXW Size; 216106-HR-PU Scorewas developed and its performance characteristics determinedby HERMEL DELOR. It has not been cleared or approved by the Foodand Drug Administration.PATIENT WAS FASTINGPERFORMED BY: Lailaihui [facility] Rztdzhonmy8093 [facility] [id number] BY: [facility] Lpqksi4918 [facility] [id number] RBC (Bld) [#/Vol] 4.57 10*6/uL Normal 3.77-5.28 [facility] Internal Medicine; [facility] Work Phone: Comment on above: Test(s) 686200-JFX-T ; 585715-TAC-F; 519838-ZYI-P; 343507-Ygskqbojambir; 376681-Ldwqvkastzg, Total; 754935-IRG-S (Total);381459-Lhqyd LDL-P; 312327-CFB Size; 392956-OG-YD Scorewas developed and its performance characteristics determinedby HERMEL DELOR. It has not been cleared or approved by the Foodand Drug Administration.PATIENT WAS FASTINGPERFORMED BY: [employer] [id number] BY: [employer]70 [facility] [id number] WBC (Bld) [#/Vol] 5.6 {x10E3/uL} Normal 3.4-10.8 [facility] Internal Medicine Work Phone: Comment on above: Test(s) 319021-KWM-D ; 665816-QBI-Y; 985998-DHA-A; 954679-Londllviqbigt; 110219-Yrmymdztleg, Total; 773114-EPF-G (Total);491513-Wsfwg LDL-P; 582916-EQH Size; 262335-SV-IR Scorewas developed and its performance characteristics determinedby HERMEL DELOR. It has not been cleared or approved by the Foodand Drug Administration.PATIENT WAS FASTINGPERFORMED BY: [employer] [address] [id number] BY: TrendBent6370 [facility] [id number] WBC (Bld) [#/Vol] 5.6 10*3/uL Normal 3.4-10.8 [facility] Internal Medicine; [facility] Work Phone: Comment on above: Test(s) 937348-OFU-D ; 062680-ODZ-S; 547935-EHU-H; 331133-Dojgvncglmlko; 476328-Avdbicjjxhd, Total; 867471-JKT-J (Total);004408-Zfavw LDL-P; 838252-YVE Size; 680045-EQ-YG Scorewas developed and its performance characteristics determinedby HERMEL DELOR. It has not been cleared or approved by the Foodand Drug Administration.PATIENT WAS FASTINGPERFORMED BY: [employer] [address] [id number] BY: BodyGuardzRunnells Specialized HospitalMurdkw2276 [facility] [id number] HGB A1C (17304)Ordered By: S ystem Tape Librarian on 04-21-2019 HbA1c (Bld) [Mass fraction] 6.0 % Abnormal 4.8-5.6 [facility] Work Phone: Comment on above: . Prediabetes: 5.7 - 6.4 Diabetes: >6.4 Glycemic control for adults with diabetes: <7.0 standing order every 4months; Test(s) 834009-QJS-O; 314764-FLY-Q; 511382-FCP-V; 687858-Jqqewacwgthrc; 499291-Agfchtiddqy, Total; 875945-RBF-V (Total);743366-Auzku LDL-P; 292134-RJL Size; 757248-WK-HP Scorewas developed and its performance characteristics determinedby HERMEL DELOR. It has not been cleared or approved by the Foodand Drug Administration.PATIENT WAS FASTINGPERFORMED BY: [employer] [address] [id number] BY: HERMEL DELOR Nkscxz7337 [facility] [id number] METABOLIC PANEL, COMPREHENSI VE (83034)Ordered By: Proctologist on 04-21-2019 Albumin [Mass/Vol] 4.7 g/dL Normal 3.8-4.8 [facility] Internal Medicine Work Phone: Comment on above: Please note refere nce interval change Test(s) 855624-ZNG-N ; 820037-RRL-S; 198255-WDL-O; 674915-Nihjedgamzoyk; 175053-Shnqtkrkogh, Total; 870825-JRV-L (Total);498947-Bmxej LDL-P; 901989-WXD Size; 576026-TC-XT Scorewas developed and its performance characteristics determinedby HERMEL DELOR. It has not been cleared or approved by the Foodand Drug Administration.PATIENT WAS FASTINGPERFORMED BY: BodyGuardz[address] [id number] BY: BodyGuardzRunnells Specialized HospitalHhdzhc5309 [facility] [id number] Albumin/Globulin [Mass ratio] 1.8 {ratio} Normal 1.2-2.2 [facility] Work Phone: Comment on above: Test(s) 734209-NVD-S ; 314870-RFZ-V; 244995-WJL-W; 446844-Iztnglvhquuhf; 951168-Xbjihvtocae, Total; 940544-MIH-F (Total);671488-Vwwmj LDL-P; 203469-FDS Size; 048991-JD-EG Scorewas developed and its performance characteristics determinedby HERMEL DELOR. It has not been cleared or approved by the Foodand Drug Administration.PATIENT WAS FASTINGPERFORMED BY: HERMEL DELOR [address] [id number] BY: BodyGuardzTohatchi Health Care CenterGuopzg5353 [facility] [id number] ALP [Catalytic activity/Vol] 94 [iU]/L Normal 39-117 [facility] Work Phone: Comment on above: Test(s) 335363-TIC-T ; 164126-OXV-K; 089818-SUK-W; 278877-Hescftbklamzr; 693608-Zxrhzlehcxi, Total; 684317-ERF-D (Total);700910-Pepvw LDL-P; 483930-GKM Size; 812129-MS-KR Scorewas developed and its performance characteristics determinedby HERMEL DELOR. It has not been cleared or approved by the Foodand Drug Administration.PATIENT WAS FASTINGPERFORMED BY: BodyGuardz[address] [id number] BY: BodyGuardzRunnells Specialized HospitalAhubaq6230 [facility] [id number] ALP [Catalytic activity/Vol] 94 U/L Normal 39-117 [facility]; [facility] Work Phone: Comment on above: Test(s) 466297-YZA-T ; 249217-UTA-J; 601464-XAO-Y; 236240-Rflrafwtnhmyn; 163383-Swtnzlaoleu, Total; 942607-QIY-A (Total);237417-Mfimb LDL-P; 897514-FEJ Size; 808587-AU-JR Scorewas developed and its performance characteristics determinedby HERMEL DELOR. It has not been cleared or approved by the Foodand Drug Administration.PATIENT WAS FASTINGPERFORMED BY: BodyGuardz[address] [id number] BY: BodyGuardzRunnells Specialized HospitalQfgvsp8940 [facility] [id number] ALT [Catalytic activity/Vol] 19 [iU]/L Normal 0-32 [facility] Internal Medicine Work Phone: Comment on above: Test(s) 419470-YLY-T ; 053726-ZBF-M; 353412-IHL-Y; 364207-Phcmwkgsqbcnt; 080123-Nkgzpcsuper, Total; 760832-KBE-F (Total);729802-Difhn LDL-P; 860672-TUN Size; 392393-MB-LG Scorewas developed and its performance characteristics determinedby HERMEL DELOR. It has not been cleared or approved by the Foodand Drug Administration.PATIENT WAS FASTINGPERFORMED BY: BodyGuardz[address] [id number] BY: BodyGuardzRunnells Specialized HospitalKdrwse1786 [facility] [id number] ALT [Catalytic activity/Vol] 19 U/L Normal 0-32 [facility]; [facility] Work Phone: Comment on above: Test(s) 461839-UPL-S ; 583774-TIM-J; 199323-SVI-N; 458919-Qqlllwtjcvzkz; 420677-Axqyhchwfer, Total; 072278-RVX-Q (Total);835488-Bedqj LDL-P; 951476-ESJ Size; 037761-BY-AV Scorewas developed and its performance characteristics determinedby HERMEL DELOR. It has not been cleared or approved by the Foodand Drug Administration.PATIENT WAS FASTINGPERFORMED BY: BodyGuardz[address] [id number] BY: BodyGuardzTohatchi Health Care CenterYbwerf3116 [facility] [id number] AST [Catalytic activity/Vol] 19 [iU]/L Normal 0-40 [facility] Work Phone: Comment on above: Test(s) 120810-EVP-C ; 743378-HWO-D; 860684-WUL-Q; 233747-Ocudbchrqqkmf; 643448-Yxwecujkbbm, Total; 512061-LZC-C (Total);175346-Maqmp LDL-P; 088074-WQV Size; 211945-NE-VT Scorewas developed and its performance characteristics determinedby HERMEL DELOR. It has not been cleared or approved by the Foodand Drug Administration.PATIENT WAS FASTINGPERFORMED BY: [employer] [address] [id number] BY: Body[employer] Jxvybe5732 [facility] [id number] AST [Catalytic activity/Vol] 19 U/L Normal 0-40 [facility]; [facility] Work Phone: Comment on above: Test(s) 699804-WZO-N ; 069893-TYD-I; 186427-GSC-N; 665059-Uwdppeocthffh; 850985-Smjobggzrhu, Total; 187824-JJG-E (Total);173884-Raigf LDL-P; 776804-PXL Size; 915930-BT-MO Scorewas developed and its performance characteristics determinedby HERMEL DELOR. It has not been cleared or approved by the Foodand Drug Administration.PATIENT WAS FASTINGPERFORMED BY: BodyGuardz[address] [id number] BY: BodyGuardzRunnells Specialized HospitalGodtsw3427 [facility] [id number] Bilirubin [Mass/Vol] 0.3 mg/dL Normal 0.0-1.[address] [facility] Work Phone: Comment on above: Test(s) 477598-GBW-M ; 912891-JYA-P; 686573-TWS-M; 875365-Voibkomjosatj; 151956-Nopqwtamggz, Total; 354494-ESU-O (Total);122355-Aspyp LDL-P; 164189-JWI Size; 208634-CJ-CA Scorewas developed and its performance characteristics determinedby HERMEL DELOR. It has not been cleared or approved by the Foodand Drug Administration.PATIENT WAS FASTINGPERFORMED BY: [employer] [address] [id number] BY: CYPHER Glxlkm9060 [facility] [id number] Calcium [Mass/Vol] 9.6 mg/dL Normal 8.7-10.3 [facility] Internal Medicine Work Phone: Comment on above: Test(s) 399785-DDA-W ; 868302-HDW-X; 312328-DWJ-M; 075250-Dnbbnmkpgjzps; 004984-Jawbnhvzqse, Total; 615482-PHK-H (Total);241061-Flyir LDL-P; 395799-KRS Size; 847478-OM-IQ Scorewas developed and its performance characteristics determinedby HERMEL DELOR. It has not been cleared or approved by the Foodand Drug Administration.PATIENT WAS FASTINGPERFORMED BY: [employer] [address] [id number] BY: TrendBent6370 [facility] [id number] Chloride [Moles/Vol] 102 mmol/L Normal 96-106 [facility] Internal Medicine Work Phone: Comment on above: Test(s) 090098-DWD-E ; 563548-HCS-P; 966764-SZP-Z; 867915-Anwglbviblvhb; 064954-Vlpdvvsmosg, Total; 936475-GCB-X (Total);394405-Dzrpp LDL-P; 823443-QZD Size; 701669-PL-HK Scorewas developed and its performance characteristics determinedby HERMEL DELOR. It has not been cleared or approved by the Foodand Drug Administration.PATIENT WAS FASTINGPERFORMED BY: BN LabCo[address] [id number] BY: BodyGuardzTohatchi Health Care CenterBmlumq8316 [facility] [id number] CO2 [Moles/Vol] 27 mmol/L Normal 20-29 Meli [facility] Internal Medicine Work Phone: Comment on above: Test(s) 721900-HBC-C ; 016075-GLS-Q; 314488-CRI-B; 845496-Mmmpbwgcudkia; 419502-Kusemiiwjzu, Total; 285650-XPU-E (Total);075414-Bjbic LDL-P; 827895-ZLD Size; 453970-QM-TJ Scorewas developed and its performance characteristics determinedby HERMEL DELOR. It has not been cleared or approved by the Foodand Drug Administration.PATIENT WAS FASTINGPERFORMED BY: AK[employer] [address] [id number] BY: [employer] Systems6370 [facility] [id number] Creatinine [Mass/Vol] 0.78 mg/dL Normal 0.57-1.00 [facility] Internal Medicine Work Phone: Comment on above: Test(s) 840522-FVR-A ; 961326-XUW-J; 865736-AGD-L; 218429-Adaxtngawcnil; 973432-Ovbarjhxzxl, Total; 409656-BWW-G (Total);795394-Qpaer LDL-P; 728304-BJO Size; 542932-NX-AP Scorewas developed and its performance characteristics determinedby HERMEL DELOR. It has not been cleared or approved by the Foodand Drug Administration.PATIENT WAS FASTINGPERFORMED BY: HERMEL DELOR [address] [id number] BY: Tymphanylin6370 [facility] [id number] GFR/1.73 sq M predicted among blacks CKD-EPI (S/P/Bld) [Vol rate/Area] 91 mL/min/1.73 Normal [facility] Internal Medicine Work Phone: Comment on above: Test(s) 676922-MLM-B ; 131642-IUV-Y; 510085-MSO-A; 744293-Atwzsnzufsnjh; 433603-Xvjxhwwybks, Total; 954360-OFO-M (Total);755292-Aljsw LDL-P; 607360-YYX Size; 639613-KD-WN Scorewas developed and its performance characteristics determinedby HERMEL DELOR. It has not been cleared or approved by the Foodand Drug Administration.PATIENT WAS FASTINGPERFORMED BY: [employer] [address] [id number] BY: CYPHER Jpicag7945 [facility] [id number] GFR/1.73 sq M predicted among non-blacks CKD-EPI (S/P/Bld) [Vol rate/Area] 79 mL/min/1.73 Normal [facility] Work Phone: Comment on above: Test(s) 193451-WPE-F ; 448635-EMB-T; 805624-MWO-H; 734153-Rfzhsouuaevgf; 933378-Tpozqidqbob, Total; 616457-EXY-I (Total);780733-Yqukl LDL-P; 281686-CYK Size; 728251-WW-DK Scorewas developed and its performance characteristics determinedby HERMEL DELOR. It has not been cleared or approved by the Foodand Drug Administration.PATIENT WAS FASTINGPERFORMED BY: [employer] [address] [id number] BY: CYPHER Lzaemi7839 [facility] [id number] Globulin (S) [Mass/Vol] 2.6 g/dL Normal 1.5-4.5 C o[facility] Work Phone: Comment on above: Test(s) 420672-FUR-C ; 322439-WFG-F; 220928-GKM-S; 501483-Wqetkvcovxins; 288013-Upmzloetqup, Total; 913227-FTU-M (Total);658526-Wutll LDL-P; 027567-XOZ Size; 221354-GD-TS Scorewas developed and its performance characteristics determinedby HERMEL DELOR. It has not been cleared or approved by the Foodand Drug Administration.PATIENT WAS FASTINGPERFORMED BY: [employer] [address] [id number] BY: Body[employer]z Kxuehg8710 [facility] [id number] Glucose [Mass/Vol] 111 mg/dL Abnormal 65-99 [facility] Internal Medicine Work Phone: Comment on above: Test(s) 262508-XBI-A ; 556122-XUU-E; 597050-PMZ-A; 632151-Ighasaesuvqtt; 001458-Coofnhnclfh, Total; 579067-KPK-I (Total);651159-Caaib LDL-P; 353491-DVS Size; 025489-WZ-ZU Scorewas developed and its performance characteristics determinedby HERMEL DELOR. It has not been cleared or approved by the Foodand Drug Administration.PATIENT WAS FASTINGPERFORMED BY: [employer] [id number] BY: TrendBent6370 Tamayo Barefoot NetworksAtrium Health Union [id number] Potassium [Moles/Vol] 4.8 mmol/L Normal 3.5-5.2 [facility] Internal Medicine Work Phone: Comment on above: Test(s) 873682-RJR-V ; 067933-WOW-Y; 400138-IBH-N; 086803-Pidzdymectkjb; 283388-Xgmvcjgxuav, Total; 933452-ZJM-X (Total);960016-Wutep LDL-P; 495730-XLB Size; 368299-MC-MV Scorewas developed and its performance characteristics determinedby HERMEL DELOR. It has not been cleared or approved by the Foodand Drug Administration.PATIENT WAS FASTINGPERFORMED BY: AK[employer] [address] [id number] BY: [employer] Dmzexx1543 [facility] [id number] Protein [Mass/Vol] 7.3 g/dL Normal 6.0-8.5 [facility] Internal Medicine Work Phone: Comment on above: Test(s) 622873-WZW-B ; 480226-IMH-R; 242771-OYW-C; 940778-Shwyevpfgcvbt; 718927-Bonoilqyljs, Total; 280226-BEV-Y (Total);663201-Lpodh LDL-P; 977164-CRK Size; 323650-WN-OT Scorewas developed and its performance characteristics determinedby HERMEL DELOR. It has not been cleared or approved by the Foodand Drug Administration.PATIENT WAS FASTINGPERFORMED BY: [employer] [address] [id number] BY: Bioc[employer]70 [facility] [id number] Sodium [Moles/Vol] 142 mmol/L Normal 134-144 [facility] Internal Medicine Work Phone: Comment on above: Test(s) 243328-HOZ-B ; 522286-OSJ-Q; 520267-XUZ-N; 346311-Uvyxfshafwztv; 896823-Kqqqbelvxjy, Total; 658897-BVG-G (Total);210690-Eqmyk LDL-P; 471537-DJU Size; 274844-BG-HW Scorewas developed and its performance characteristics determinedby HERMEL DELOR. It has not been cleared or approved by the Foodand Drug Administration.PATIENT WAS FASTINGPERFORMED BY: [employer] [address] [id number] BY: TrendBent6370 [facility] [id number] Urea nitrogen [Mass/Vol] 12 mg/dL Normal 8-27 [facility] Internal Medicine Work Phone: Comment on above: Test(s) 229419-MLH-C ; 473054-TXC-F; 195722-ASF-A; 371425-Qrgrvkvfvocuh; 287066-Ogtnsmfaahq, Total; 990330-ZFY-N (Total);985887-Tqtpo LDL-P; 616140-IUY Size; 139564-NL-EA Scorewas developed and its performance characteristics determinedby HERMEL DELOR. It has not been cleared or approved by the Foodand Drug Administration.PATIENT WAS FASTINGPERFORMED BY: [employer] [id number] BY: TrendBent6370 [facility] [id number] Urea nitrogen/Creatinine [Mass ratio] 15 mg/mg Normal - [facility] Work Phone: Comment on above: Test(s) 340193-WTY-Q ; 389600-EEY-Y; 236241-CAK-H; 433551-Ytdugtqaogehv; 670291-Vtlemsnzzlx, Total; 482525-RRC-I (Total);855107-Dsjmv LDL-P; 599288-YAF Size; 570487-KW-XS Scorewas developed and its performance characteristics determinedby HERMEL DELOR. It has not been cleared or approved by the Foodand Drug Administration.PATIENT WAS FASTINGPERFORMED BY: [employer] [id number] BY: [employer]oceros70 [facility] [id number] MICROALBUMINOrdered By: Syst em Tape Librarian on 04-21-2019 Albumin DL <= 20 mg/L (U) [Mass/Vol] mg/dL Normal [facility] Work Phone: Comment on above: Test(s) 600537-MAC-B ; 039206-HVP-Z; 715454-NKG-B; 244525-Ahykswqcqdexa; 002643-Gdgbtkonfch, Total; 257029-ZVT-C (Total);439847-Dzshn LDL-P; 804925-SMD Size; 809091-PV-IG Scorewas developed and its performance characteristics determinedby HERMEL DELOR. It has not been cleared or approved by the Foodand Drug Administration.PATIENT WAS FASTINGPERFORMED BY: [employer] [address] [id number] BY: Social Pluslin6370 [facility] [id number] Albumin DL <= 20 mg/L (U) [Mass/Vol] mg/dL Normal [facility]; [facility] Work Phone: Comment on above: Test(s) 424344-NPW-T ; 935937-JLT-Q; 429574-OBO-M; 539395-Hmhlmlqlvxhed; 058810-Dtssvjgdsjg, Total; 282899-SBJ-X (Total);591933-Rjfoc LDL-P; 481306-MEG Size; 361539-KK-FS Scorewas developed and its performance characteristics determinedby HERMEL DELOR. It has not been cleared or approved by the Foodand Drug Administration.PATIENT WAS FASTINGPERFORMED BY: [employer] [address] [id number] BY: [employer]oc[employer]70 [facility] [id number] Albumin/Creatinine (U) [Mass ratio] <23 Normal 0-29 [facility] Work Phone: Comment on above: Normal: 0 - 29 Moder ately increased: 30 - 300 Severely increased: >300 Please note reference interval change Test(s) 091830-ZOJ-L ; 996327-LTC-I; 002521-ZOR-M; 326622-Cksbmxhbavfpz; 860811-Ictoqoibvuf, Total; 536791-LNI-U (Total);870948-Zwwez LDL-P; 580696-LHK Size; 267121-TO-EV Scorewas developed and its performance characteristics determinedby HERMEL DELOR. It has not been cleared or approved by the Foodand Drug Administration.PATIENT WAS FASTINGPERFORMED BY: AK[employer]ON [employer] [address] [id number] BY: Bioceros70 Tamayo Syntilla MedicalUNC Health [facility] [id number] Creatinine (U) [Mass/Vol] 13.2 mg/dL Normal [facility] Work Phone: Comment on above: Test(s) 861939-BFO-C ; 949446-MTC-T; 807473-MCR-U; 630052-Vszhttvwezkvm; 303174-Bboqerzkssh, Total; 435041-UTY-U (Total);685162-Vfqvr LDL-P; 598787-EEL Size; 719513-MC-SO Scorewas developed and its performance characteristics determinedby HERMEL DELOR. It has not been cleared or approved by the Foodand Drug Administration.PATIENT WAS FASTINGPERFORMED BY: [employer] [id number] BY: BodyGuard[employer] Ofvesp5861 [facility] [id number] NMR Profile (24328)Ordered B y: Proctologist on 04-21-2019 Cholesterol [Mass/Vol] 200 mg/dL Abnormal 100-199 [facility] Internal Medicine Work Phone: Comment on above: Test(s) 033735-YGJ-B ; 355001-VXB-L; 713994-SQI-B; 850298-Sixphblkfczlg; 329236-Xzojhllbuom, Total; 005102-SPJ-L (Total);380097-Nshuu LDL-P; 233060-QEZ Size; 294015-KO-RA Scorewas developed and its performance characteristics determinedby HERMEL DELOR. It has not been cleared or approved by the Foodand Drug Administration.PATIENT WAS FASTINGPERFORMED BY: [employer] [id number] BY: [employer]6370 [facility] [id number] Lipoprotein.alpha [Moles/Vol] 47.8 umol/L Normal [facility] Internal Medicine Work Phone: Comment on above: Test(s) 161601-CVB-O ; 023729-RLS-I; 376702-RHR-K; 739263-Hgarkgqwcsnmo; 451759-Fpvdtdeinsf, Total; 687971-PWU-G (Total);324251-Flsar LDL-P; 519793-WGE Size; 399578-JX-DA Scorewas developed and its performance characteristics determinedby HERMEL DELOR. It has not been cleared or approved by the Foodand Drug Administration.PATIENT WAS FASTINGPERFORMED BY: [employer] [id number] BY: BodyGuardzTohatchi Health Care CenterEmxovn6308 [facility] [id number] Lipoprotein.beta.subpar ticle [Entitic length] 21.1 nm Normal [facility] Internal [facility] Work Phone: Comment on above: [...] <-Small (Pattern B)-> 23.0 20.6 20.5 19.0 Smal l LDL-P and LDL Size are associated with CVD risk, but not afterLDL-P is taken into account. Test(s) 691602-IWR-J ; 108729-KNR-N; 692413-ADN-C; 942033-Nytjzkhyasgqu; 890454-Ypnarufrepr, Total; 051326-TJX-V (Total);098174-Ufltv LDL-P; 539758-JKI Size; 647557-EF-RK Scorewas developed and its performance characteristics determinedby HERMEL DELOR. It has not been cleared or approved by the Foodand Drug Administration.PATIENT WAS FASTINGPERFORMED BY: BN [employer] [address] [id number] BY: LabAllegiance Health FoundationRunnells Specialized HospitalEylphn7523 [facility] [id number] Lipoprotein.beta.subpar ticle [Moles/Vol] 996 nmol/L Normal [facility] Work Phone: Comment on above: Low < 1000 Moderate 1000 - 1299 Borderline-High 1300 - 1599 High 1600 - 2000 Very High > 2000 Test(s) 315638-IDI-T ; 431485-VYB-X; 096162-FRR-U; 173317-Amwcrzhwjgyvy; 164802-Vrqnakwfypw, Total; 571862-VZI-S (Total);603146-Gjqqm LDL-P; 839860-TCS Size; 433209-SL-VE Scorewas developed and its performance characteristics determinedby HERMEL DELOR. It has not been cleared or approved by the Foodand Drug Administration.PATIENT WAS FASTINGPERFORMED BY: AK[employer] [address] [id number] BY: CYPHER Nfyujl2763 [facility] [id number] Lipoprotein.beta.subpar ticle.small [Moles/Vol] 335 nmol/L Normal Comprehe nsive Internal Medicine Work Phone: Comment on above: Test(s) 598861-KWP-D ; 484662-RLR-U; 201088-DMH-E; 863436-Onwvpncoezcgo; 475171-Ebgyepotpph, Total; 865094-THR-G (Total);269202-Gkbrm LDL-P; 666812-SRG Size; 677775-HK-YK Scorewas developed and its performance characteristics determinedby HERMEL DELOR. It has not been cleared or approved by the Foodand Drug Administration.PATIENT WAS FASTINGPERFORMED BY: [employer] [address] [id number] BY: CYPHER Bflrxi1892 [facility] [id number] Triglyceride [Mass/Vol] 127 mg/dL Normal 0-149 [facility] Internal [facility] Work Phone: Comment on above: Test(s) 708202-GVP-I ; 372937-MIF-B; 289690-EAQ-F; 346875-Fpvjsmklqsqod; 052289-Ralabvbpkdw, Total; 611600-AIH-E (Total);760158-Icfla LDL-P; 112084-XOF Size; 520033-AS-VS Scorewas developed and its performance characteristics determinedby HERMEL DELOR. It has not been cleared or approved by the Foodand Drug Administration.PATIENT WAS FASTINGPERFORMED BY: BN [facility] Dukzhrcdsu6181 [facility] [id number] BY: TrendBent6370 DocASAPUNC Health Caldwell [id number] NMR Profile (58327) 92 mg/dL Normal 0-99 [facility] Internal Medicine Work Phone: Comment on above: . Optimal < 100 Abov e optimal 100 - 129 Borderline 130 - 159 High 160 - 189 Very high > 189 .LDL-C is inaccurate if patient is non-fasting. Test(s) 945824-WKO-B ; 359075-MTJ-M; 779466-WNU-K; 274138-Tjuscwjrlogdv; 139308-Hipongdomdg, Total; 832843-GZL-V (Total);297495-Mghxw LDL-P; 695217-QAH Size; 416043-EZ-XF Scorewas developed and its performance characteristics determinedby HERMEL DELOR. It has not been cleared or approved by the Foodand Drug Administration.PATIENT WAS FASTINGPERFORMED BY: [employer] [id number] BY: TrendBent6370 [employer] [id number] NMR Profile (58521) 83 mg/dL Normal [facility] Internal Medicine Work Phone: Comment on above: Test(s) 579725-OIJ-K ; 521383-TMW-P; 560612-BXS-T; 505236-Hbphieyjwktpe; 773059-Ofxhofrlihw, Total; 980480-DWD-J (Total);573642-Snaux LDL-P; 796166-ESN Size; 685319-UL-BQ Scorewas developed and its performance characteristics determinedby HERMEL DELOR. It has not been cleared or approved by the Foodand Drug Administration.PATIENT WAS FASTINGPERFORMED BY: [employer] [id number] BY: TrendBent6370 Tamayo Syntilla MedicalUNC Health [facility] [id number] URINALYSIS, W/ MICRO (12947) Ordered By: Proctologist on 04-21-2019 Appearance (U) Clear Normal Comprehens estela Internal Medicine Work Phone: Comment on above: Test(s) 432061-YZE-D ; 953945-MOT-E; 929207-EUJ-F; 996074-Voflljtpkskhd; 299142-Lbqyhnnfqcl, Total; 512910-TPG-B (Total);471024-Dktzy LDL-P; 537133-YWV Size; 395984-LE-XH Scorewas developed and its performance characteristics determinedby HERMEL DELOR. It has not been cleared or approved by the Foodand Drug Administration.PATIENT WAS FASTINGPERFORMED BY: AK[employer] [address] [id number] BY: [employer] [facility] [id number] Bilirubin Ql (U) Negative Normal Comprehe nsive Internal Medicine Work Phone: Comment on above: Test(s) 322026-EVZ-G ; 867708-TUW-N; 689419-EOA-Q; 590839-Zhjkkbjsmhhln; 866622-Fneqynukxvt, Total; 180022-ZQV-F (Total);039798-Layro LDL-P; 200006-CCT Size; 629264-UE-QS Scorewas developed and its performance characteristics determinedby HERMEL DELOR. It has not been cleared or approved by the Foodand Drug Administration.PATIENT WAS FASTINGPERFORMED BY: [employer] [address] [id number] BY: TrendBent6370 [facility] [id number] Bilirubin Ql (U) Negative Normal Comprehe nsive Internal Medicine; [facility] Work Phone: Comment on above: Test(s) 006530-FSJ-R ; 462597-AUS-M; 003465-DGF-J; 964990-Qvrzrytsbvind; 559298-Omatvziguww, Total; 566879-RNK-W (Total);332543-Ceyfl LDL-P; 213511-YYE Size; 987915-OF-TY Scorewas developed and its performance characteristics determinedby HERMEL DELOR. It has not been cleared or approved by the Foodand Drug Administration.PATIENT WAS FASTINGPERFORMED BY: [employer] [id number] BY: BodyGuardzRunnells Specialized HospitalKzeebt1182 [facility] [id number] Color (U) Yellow Normal [facility] Work Phone: Comment on above: Test(s) 384459-NTL-D ; 423121-MBL-C; 004444-IOE-H; 479631-Rwzxdrnfvrvjm; 104986-Zttwbmufhtt, Total; 907199-BDK-X (Total);723541-Niqvi LDL-P; 643071-VAE Size; 571742-WQ-XO Scorewas developed and its performance characteristics determinedby HERMEL DELOR. It has not been cleared or approved by the Foodand Drug Administration.PATIENT WAS FASTINGPERFORMED BY: [employer] [address] [id number] BY: [employer]70 [facility] [id number] Glucose Ql (U) Negative Normal Comprehens estela Internal Medicine Work Phone: Comment on above: Test(s) 068208-RKQ-N ; 923670-OEQ-J; 268391-WZR-I; 467931-Uvwrfzhjlkrqu; 697240-Femmfdrmwxu, Total; 095996-RWW-P (Total);557628-Cowbl LDL-P; 722702-IKU Size; 271980-EO-DV Scorewas developed and its performance characteristics determinedby HERMEL DELOR. It has not been cleared or approved by the Foodand Drug Administration.PATIENT WAS FASTINGPERFORMED BY: [employer] [id number] BY: BodyGuardzRunnells Specialized HospitalMvdpvv3597 [facility] [id number] Glucose Ql (U) Negative Normal Comprehens estela Internal Medicine; [facility] Work Phone: Comment on above: Test(s) 263713-IBP-E ; 449489-WMY-E; 489151-JSZ-P; 892916-Dflaqiyoqsvzk; 607847-Qjpghalviyh, Total; 197628-MMX-B (Total);839556-Tctac LDL-P; 466820-JEY Size; 500559-YI-QS Scorewas developed and its performance characteristics determinedby HERMEL DELOR. It has not been cleared or approved by the Foodand Drug Administration.PATIENT WAS FASTINGPERFORMED BY: [employer] [address] [id number] BY: Body[employer] [id number] Tamayo Syntilla MedicalUNC [facility] [id number] Hemoglobin Ql (U) Negative Normal Compreh ensive Internal Medicine Work Phone: Comment on above: Test(s) 184271-JJB-I ; 907653-XXK-E; 870403-VNZ-I; 899093-Gvgjoirsndkqr; 948785-Hntkcmhronz, Total; 929529-QBC-K (Total);744748-Akvff LDL-P; 745115-CQN Size; 645197-EX-AL Scorewas developed and its performance characteristics determinedby HERMEL DELOR. It has not been cleared or approved by the Foodand Drug Administration.PATIENT WAS FASTINGPERFORMED BY: [employer] [address] [id number] BY: [email or web address] DocASAPUNC Health Caldwell [id number] Hemoglobin Ql (U) Negative Normal Compreh ensive Internal Medicine; [facility] Work Phone: Comment on above: Test(s) 383166-SXX-Q ; 541336-LWV-F; 865000-IMC-V; 609264-Mgjhvonqgyops; 833568-Pmzzqjidhre, Total; 057479-NWY-G (Total);833767-Qjybr LDL-P; 450086-PTL Size; 133874-MC-AP Scorewas developed and its performance characteristics determinedby HERMEL DELOR. It has not been cleared or approved by the Foodand Drug Administration.PATIENT WAS FASTINGPERFORMED BY: [employer] [id number] BY: BodyGuardzRunnells Specialized HospitalSsxfqk1364 DocASAPUNC Health Caldwell [id number] Ketones Ql (U) Negative Normal Comprehens estela Internal Medicine Work Phone: Comment on above: Test(s) 474257-SNJ-R ; 249096-YEC-O; 999580-KLL-B; 757442-Tqvwnzmytysly; 336208-Npafweygehh, Total; 983973-WMS-Y (Total);492484-Dwhhc LDL-P; 382324-NCL Size; 066686-BO-VX Scorewas developed and its performance characteristics determinedby HERMEL DELOR. It has not been cleared or approved by the Foodand Drug Administration.PATIENT WAS FASTINGPERFORMED BY: [employer] [address] [id number] BY: [email or web address] DocASAPUNC Health [facility] [id number] Ketones Ql (U) Negative Normal Comprehens [facility] Internal Medicine; [facility] Work Phone: Comment on above: Test(s) 091260-UKD-C ; 158074-JEN-Q; 678890-ZXP-Z; 993780-Duopwwcaehwiq; 773398-Lycbobaixos, Total; 038364-IAF-R (Total);865872-Cweas LDL-P; 229340-VHI Size; 854189-PU-XS Scorewas developed and its performance characteristics determinedby HERMEL DELOR. It has not been cleared or approved by the Foodand Drug Administration.PATIENT WAS FASTINGPERFORMED BY: [employer] [address] [id number] BY: [employer]oc[employer]70 [facility] [id number] Leukocyte esterase Test strip Ql (U) Negative Normal [facility] Work Phone: Comment on above: Test(s) 769913-WTJ-C ; 054009-RAQ-B; 580155-NXL-F; 669008-Yeewbgixspfkl; 681093-Vwvcuqlikzm, Total; 261649-LGG-T (Total);048722-Cndrw LDL-P; 739869-WGU Size; 962750-LQ-XX Scorewas developed and its performance characteristics determinedby HERMEL DELOR. It has not been cleared or approved by the Foodand Drug Administration.PATIENT WAS FASTINGPERFORMED BY: [employer] [id number] BY: [employer] Nxgcll1899 DocASAPUNC Health [facility] [id number] Leukocyte esterase Test strip Ql (U) Negative Normal [facility]; [facility] Work Phone: Comment on above: Test(s) 825145-IYY-R ; 566042-BVE-A; 846760-MZI-O; 190935-Lywewbmktyibt; 681129-Nhmxrcunawp, Total; 011602-TZC-R (Total);046923-Odihh LDL-P; 905459-DDF Size; 174527-IZ-KA Scorewas developed and its performance characteristics determinedby HERMEL DELOR. It has not been cleared or approved by the Foodand Drug Administration.PATIENT WAS FASTINGPERFORMED BY: [employer] [id number] BY: [employer]70 Tamayo Syntilla MedicalUNC Health [facility] [id number] Microscopic observation LM Nom (Urine sed) See below: Normal [facility] Work Phone: Comment on above: Microscopic was rikki cated and was performed. Test(s) 699037-ITJ-F ; 350824-RUV-W; 606134-JEO-P; 352376-Ocdsitwsjvgim; 000940-Zcrgtrtaspj, Total; 373633-MFD-Z (Total);714733-Nzkim LDL-P; 961161-WBY Size; 482009-FS-OB Scorewas developed and its performance characteristics determinedby HERMEL DELOR. It has not been cleared or approved by the Foodand Drug Administration.PATIENT WAS FASTINGPERFORMED BY: [employer] [address] [id number] BY: [employer] [id number] [facility] [id number] Microscopic observation LM Nom (Urine sed) MICRON Normal [facility] Work Phone: Comment on above: Microscopic follows if indicated. Test(s) 267499-VXV-M ; 573281-KAV-Y; 309127-SME-W; 002351-Jhxuxgoijxvhy; 874931-Gctcifvcaub, Total; 553702-XAH-K (Total);978228-Xutrx LDL-P; 549172-WIO Size; 312090-ET-JX Scorewas developed and its performance characteristics determinedby HERMEL DELOR. It has not been cleared or approved by the Foodand Drug Administration.PATIENT WAS FASTINGPERFORMED BY: [employer] [address] [id number] BY: [employer]70 [facility] [id number] Nitrite Ql (U) Negative Normal Comprehens estela Internal Medicine Work Phone: Comment on above: Test(s) 251671-DEQ-V ; 222888-MRI-K; 860054-RBJ-S; 098362-Flhkmgbxboaie; 278232-Eqwevddapdr, Total; 358026-ZBF-G (Total);208058-Xmfoc LDL-P; 664044-MFM Size; 301629-TH-HP Scorewas developed and its performance characteristics determinedby HERMEL DELOR. It has not been cleared or approved by the Foodand Drug Administration.PATIENT WAS FASTINGPERFORMED BY: [employer] [id number] BY: [employer]70 [facility] [id number] Nitrite Ql (U) Negative Normal Comprehens estela Internal Medicine; [facility] Work Phone: Comment on above: Test(s) 144698-ZCM-R ; 819300-OAO-P; 914263-ETM-U; 358527-Sqohxuvljmrbr; 760379-Qnduqhsevsf, Total; 675474-OLS-K (Total);451533-Yvgpo LDL-P; 983961-ODC Size; 541772-QF-PJ Scorewas developed and its performance characteristics determinedby HERMEL DELOR. It has not been cleared or approved by the Foodand Drug Administration.PATIENT WAS FASTINGPERFORMED BY: [employer] [address] [id number] BY: [employer] [facility] [id number] pH (U) 7.5 [pH] Normal 5.0-7.5 [facility] Work Phone: Comment on above: Test(s) 821418-GTE-V ; 461023-SAR-V; 886488-GJK-C; 470959-Oylxzpvzvjxvq; 310991-Ktvmlrubfzc, Total; 452533-YCQ-Z (Total);312634-Mpisi LDL-P; 965231-VZU Size; 890402-RR-FV Scorewas developed and its performance characteristics determinedby HERMEL DELOR. It has not been cleared or approved by the Foodand Drug Administration.PATIENT WAS FASTINGPERFORMED BY: [employer] [id number] BY: [employer]6370 [facility] [id number] Protein Ql (U) Negative Normal Comprehens estela Internal Medicine Work Phone: Comment on above: Test(s) 578815-BOY-B ; 820620-KWA-I; 429968-QCO-P; 962846-Serfsoccmyxqv; 953296-Slntgpqopjg, Total; 074387-FBX-W (Total);422728-Obcoa LDL-P; 810339-VLS Size; 142932-DA-YZ Scorewas developed and its performance characteristics determinedby HERMEL DELOR. It has not been cleared or approved by the Foodand Drug Administration.PATIENT WAS FASTINGPERFORMED BY: [employer] [address] [id number] BY: BodyGuardzRunnells Specialized HospitalSnllrg8084 [facility] [id number] Protein Ql (U) Negative Normal Comprehens estela Internal Medicine; [facility] Work Phone: Comment on above: Test(s) 780881-YKN-D ; 104883-RYJ-G; 828422-LCI-G; 767254-Idsrmsnffrvjy; 609391-Wrknaogszoj, Total; 969517-IZF-W (Total);727288-Vgush LDL-P; 452327-SWF Size; 602729-RC-ND Scorewas developed and its performance characteristics determinedby HERMEL DELOR. It has not been cleared or approved by the Foodand Drug Administration.PATIENT WAS FASTINGPERFORMED BY: [employer] [address] [id number] BY: Bioc[employer]70 DocASAPUNC [facility] [id number] Specific gravity (U) [Rel density] 1.005 1 Normal 1.005-1.030 [facility] Work Phone: Comment on above: Test(s) 716933-PZC-T ; 534733-RBE-J; 301022-NVX-J; 389218-Qmmkurczgpndz; 511377-Dojsdenygny, Total; 571955-HRD-S (Total);412428-Nyikx LDL-P; 637334-XKK Size; 701570-GG-FY Scorewas developed and its performance characteristics determinedby HERMEL DELOR. It has not been cleared or approved by the Foodand Drug Administration.PATIENT WAS FASTINGPERFORMED BY: [employer] [address] [id number] BY: [email or web address] DocASAPUNC [facility] [id number] Urobilinogen (U) [Mass/Vol] 0.2 mg/dL Normal 0.2-1.0 [facility]; [facility] Work Phone: Comment on above: Test(s) 089843-BET-H ; 523305-GLF-H; 953209-SAP-E; 706005-Ehlvrrkwkkucg; 853037-Okpxtrolvgw, Total; 177516-SBB-A (Total);837278-Lrzha LDL-P; 029034-VEZ Size; 849704-PE-GM Scorewas developed and its performance characteristics determinedby HERMEL DELOR. It has not been cleared or approved by the Foodand Drug Administration.PATIENT WAS FASTINGPERFORMED BY: [employer] [address] [id number] BY: T[employer]ent6370 Tamayo Syntilla MedicalUNC [facility] [id number] Urobilinogen Test strip (U) [Mass/Vol] 0.2 mg/dL Normal 0.2-1.0 [facility] Work Phone: Comment on above: Test(s) 732327-FUY-T ; 939220-TET-T; 663315-PZB-H; 764114-Ovwutgaulvoaw; 968196-Gzasjnxgpqs, Total; 775963-QCG-U (Total);570039-Zqflj LDL-P; 914320-PIH Size; 385891-GC-HC Scorewas developed and its performance characteristics determinedby HERMEL DELOR. It has not been cleared or approved by the Foodand Drug Administration.PATIENT WAS FASTINGPERFORMED BY: HERMEL DELOR [address] [id number] BY: CB [employer]ra Fyskzy3626 [facility] [id number] Vital Signs Date Time Vital Sign Value Performing Clinician Facility 07-05-2024 15:40-0400 Body height 160.[address] Beryl Keaen DO Work Phone: [facility] 07-05-2024 15:33-0400 Body mass index (BMI) [Ratio] 44.4 kg/m2 Dr. Beryl Keane DO Work Phone: [facility] 07-05-2024 15:33-0400 Body weight 113.[address] Beryl Keane DO Work Phone: [facility] 07-05-2024 15:33-0400 Diastolic blood pressure 93 mm[Hg] Dr. Beryl Keane DO Work Phone: [facility] 07-05-2024 15:33-0400 Systolic blood pressure 180 mm[Hg] Dr. Beryl Keane DO Work Phone: [facility] 06-21-2024 15:50-0400 Body temperature 97 [degF] Dr. Beryl Keane DO Work Phone: [facility] 06-21-2024 15:50-0400 Diastolic blood pressure 73 mm[Hg] Dr. Beryl Keane DO Work Phone: [facility] 06-21-2024 15:50-0400 Heart rate 76 /min Dr. Beryl Keane DO Work Phone: [facility] 06-21-2024 15:50-0400 Respiratory rate 16 /min Dr. Beryl Keane DO Work Phone: [facility] 06-21-2024 15:50-0400 SaO2% (BldA) [Mass fraction] 98 % Dr. Beryl Keane DO Work Phone: [facility] 06-21-2024 15:50-0400 Systolic blood pressure 138 mm[Hg] Dr. Beryl Keane DO Work Phone: [facility] 06-21-2024 11:45-0400 Body mass index (BMI) [Ratio] 44.2 kg/m2 Dr. Beryl Keane DO Work Phone: [facility] 06-21-2024 11:45-0400 Body weight 113.[address] Beryl Keane DO Work Phone: [facility] 06-09-2024 09:54-0400 Body mass index (BMI) [Ratio] 44.1 kg/m2 Dr. Beryl Keane DO Work Phone: [facility] 06-09-2024 09:54-0400 Body weight 112.[address] Beryl Keane DO Work Phone: [facility] 06-09-2024 09:54-0400 Diastolic blood pressure 94 mm[Hg] Dr. Beryl Keane DO Work Phone: [facility] 06-09-2024 09:54-0400 Systolic blood pressure 174 mm[Hg] Dr. Beryl Keane DO Work Phone: [facility] 04-25-2024 11:09-0500 Body height 160.[address] Beryl Keane DO Work Phone: [facility] 04-25-2024 11:09-0500 Body mass index (BMI) [Ratio] 43.6 kg/m2 Dr. Beryl Keane DO Work Phone: [facility] 04-25-2024 11:09-0500 Body weight 111.[address] Beryl Keane DO Work Phone: [facility] 04-25-2024 11:09-0500 Diastolic blood pressure 81 mm[Hg] Dr. Beryl Keane DO Work Phone: [facility] 04-25-2024 11:09-0500 Systolic blood pressure 166 mm[Hg] Dr. Beryl Keane DO Work Phone: [facility] 01-01-2023 09:02-0400 Body height 162.56 cm [facility]; [facility] Work Phone: 01-01-2023 09:02-0400 Body mass index (BMI) [Ratio] 41.77 kg/m2 [facility]; [facility] Work Phone: 01-01-2023 09:02-0400 Body surface area Derived from formula 2.13 m2 [facility]; [facility] Work Phone: 01-01-2023 09:02-0400 Body temperature 97.4 [degF] [facility]; [facility] Work Phone: 01-01-2023 09:02-0400 Body weight 110.39 kg [facility]; [facility] Work Phone: 01-01-2023 09:02-0400 Diastolic blood pressure 74 mm[Hg] [facility]; [facility] Work Phone: Comment on above: Patient Position: Sitting; Cuff Location : Left Arm; Cuff Size: Standard 01-01-2023 09:02-0400 Heart rate 75 /min [facility]; [facility] Work Phone: Comment on above: Pattern: Regular 01-01-2023 09:02-0400 Respiratory rate 16 /min Ashwin Alyssa [facility]; [facility] Work Phone: Comment on above: Pattern: Unlabored 01-01-2023 09:02-0400 SaO2% (BldA) [Mass fraction] 99 % Ashwin Alyssa [facility]; [facility] Work Phone: Comment on above: Room air 01-01-2023 09:02-0400 Systolic blood pressure 120 mm[Hg] Ashwin Osceola [facility]; [facility] Work Phone: Comment on above: Patient Position: Sitting; Cuff Location : Left Arm; Cuff Size: Standard 10-22-2022 08:36-0400 Body height 162.56 cm Gisselle Slarb [facility]; [facility] Work Phone: 10-22-2022 08:36-0400 Body mass index (BMI) [Ratio] 41.22 kg/m2 Gisselle Slarb [facility]; [facility] Work Phone: 10-22-2022 08:36-0400 Body surface area Derived from formula 2.11 m2 Gisselle Slarb [facility]; [facility] Work Phone: 10-22-2022 08:36-0400 Body temperature 97.6 [degF] Gisselle Slarb [facility]; [facility] Work Phone: Comment on above: Method: Temporal 10-22-2022 08:36-0400 Body weight 108.92 kg Gisselle Slarb [employer] [facility]; [facility] Work Phone: 10-22-2022 08:36-0400 Diastolic blood pressure 76 mm[Hg] Gisselle Slarb [employer] [facility]; [facility] Work Phone: Comment on above: Patient Position: Sitting; Cuff Location : Left Arm; Cuff Size: Standard 10-22-2022 08:36-0400 Heart rate 74 /min Gisselle Garcia [facility]; [facility] Work Phone: Comment on above: Pattern: Regular 10-22-2022 08:36-0400 Respiratory rate 16 /min Gisselle Garcia [facility]; [facility] Work Phone: Comment on above: Pattern: Unlabored 10-22-2022 08:36-0400 SaO2% (BldA) [Mass fraction] 97 % Gisselle Garcia [facility]; [facility] Work Phone: Comment on above: Room air 10-22-2022 08:36-0400 Systolic blood pressure 116 mm[Hg] Gisselle Garcia [facility]; [facility] Work Phone: Comment on above: Patient Position: Sitting; Cuff Location : Left Arm; Cuff Size: Standard 09-25-2022 07:19-0400 Body height 162.56 cm [facility]; [facility] Work Phone: 09-25-2022 07:19-0400 Body mass index (BMI) [Ratio] 41.22 kg/m2 [facility]; [facility] Work Phone: 09-25-2022 07:19-0400 Body surface area Derived from formula 2.11 m2 [facility]; [facility] Work Phone: 09-25-2022 07:19-0400 Body temperature 96.9 [degF] [facility]; [facility] Work Phone: 09-25-2022 07:19-0400 Body weight 108.92 kg [facility]; [facility] Work Phone: 09-25-2022 07:19-0400 Diastolic blood pressure 72 mm[Hg] [facility]; [facility] Work Phone: Comment on above: Patient Position: Sitting; Cuff Location : Left Arm; Cuff Size: Standard 09-25-2022 07:19-0400 Heart rate 79 /min [facility]; [facility] Work Phone: Comment on above: Pattern: Regular 09-25-2022 07:19-0400 Respiratory rate 16 /min [facility]; [facility] Work Phone: Comment on above: Pattern: Unlabored 09-25-2022 07:19-0400 SaO2% (BldA) [Mass fraction] 96 % [facility]; [facility] Work Phone: Comment on above: Room air 09-25-2022 07:19-0400 Systolic blood pressure 118 mm[Hg] [facility]; [facility] Work Phone: Comment on above: Patient Position: Sitting; Cuff Location : Left Arm; Cuff Size: Standard 06-19-2022 08:14-0400 Body height 162.56 cm [facility]; [facility] Work Phone: 06-19-2022 08:14-0400 Body mass index (BMI) [Ratio] 40.04 kg/m2 [facility]; [facility] Work Phone: 06-19-2022 08:14-0400 Body surface area Derived from formula 2.09 m2 [facility]; [facility] Work Phone: 06-19-2022 08:14-0400 Body temperature 98.4 [degF] [facility] Comprehensiv e Internal Medicine; [facility] Work Phone: 06-19-2022 08:14-0400 Body weight 105.8 kg [facility]; [facility] Work Phone: 06-19-2022 08:14-0400 Diastolic blood pressure 80 mm[Hg] [facility]; [facility] Work Phone: Comment on above: Patient Position: Sitting; Cuff Location : Left Arm; Cuff Size: Standard 06-19-2022 08:14-0400 Heart rate 88 /min [facility] [place] [facility]; [facility] Work Phone: Comment on above: Pattern: Regular 06-19-2022 08:14-0400 Respiratory rate 16 /min Mick Tran Comprehensiv e Internal Medicine; [facility] Work Phone: Comment on above: Pattern: Unlabored 06-19-2022 08:14-0400 SaO2% (BldA) [Mass fraction] 98 % [facility]; [facility] Work Phone: Comment on above: Room air 06-19-2022 08:14-0400 Systolic blood pressure 130 mm[Hg] [facility]; [facility] Work Phone: Comment on above: Patient Position: Sitting; Cuff Location : Left Arm; Cuff Size: Standard 03-19-2022 08:19-0500 Body height 162.56 cm [facility]; [facility] Work Phone: 03-19-2022 08:19-0500 Body mass index (BMI) [Ratio] 40.04 kg/m2 [facility]; [facility] Work Phone: 03-19-2022 08:19-0500 Body surface area Derived from formula 2.09 m2 [facility]; [facility] Work Phone: 03-19-2022 08:19-0500 Body temperature 96.9 [degF] [facility] Comprehensiv e Internal Medicine; [facility] Work Phone: 03-19-2022 08:19-050 Body weight 105.8 kg [facility]; [facility] Work Phone: 03-19-2022 08:19-0500 Diastolic blood pressure 80 mm[Hg] [facility]; [facility] Work Phone: Comment on above: Patient Position: Sitting; Cuff Location : Left Arm; Cuff Size: Standard 03-19-2022 08:19-0500 Heart rate 71 /min [facility] [facility]; [facility] Work Phone: Comment on above: Pattern: Regular 03-19-2022 08:19-0500 Respiratory rate 16 /min Mick Das [facility] Comprehensiv e Internal Medicine; [facility] Work Phone: Comment on above: Pattern: Unlabored 03-19-2022 08:19-0500 SaO2% (BldA) [Mass fraction] 99 % [facility] [place] [facility]; [facility] Work Phone: Comment on above: Room air 03-19-2022 08:19-0500 Systolic blood pressure 130 mm[Hg] [facility] [place] [facility]; [facility] Work Phone: Comment on above: Patient Position: Sitting; Cuff Location : Left Arm; Cuff Size: Standard 12-11-2021 08:13-0400 Body height 162.56 cm [facility]; [facility] Work Phone: 12-11-2021 08:13-0400 Body mass index (BMI) [Ratio] 40.51 kg/m2 [facility]; [facility] Work Phone: 12-11-2021 08:13-0400 Body surface area Derived from formula 2.1 m2 [facility]; [facility] Work Phone: 12-11-2021 08:13-0400 Body temperature 96.9 [degF] [facility] [place] Comprehensiv e Internal [facility]; [facility] Work Phone: 12-11-2021 08:13-0400 Body weight 107.05 kg [facility]; [facility] Work Phone: 12-11-2021 08:13-0400 Diastolic blood pressure 80 mm[Hg] [facility]; [facility] Work Phone: Comment on above: Patient Position: Sitting; Cuff Location : Left Arm; Cuff Size: Standard 12-11-2021 08:13-0400 Heart rate 69 /min Mick Tranford [facility]; [facility] Work Phone: Comment on above: Pattern: Regular 12-11-2021 08:13-0400 Respiratory rate 16 /min Mick Tranford [facility] Comprehensiv e Internal Medicine; [facility] Work Phone: Comment on above: Pattern: Unlabored 12-11-2021 08:13-0400 SaO2% (BldA) [Mass fraction] 98 % Mick Tranford [facility]; [facility] Work Phone: Comment on above: Room air 12-11-2021 08:13-0400 Systolic blood pressure 142 mm[Hg] Maritzarockrowan TranPippa [facility]; [facility] Work [...] 12:39-0400 Body height 162.56 cm Obdulia Bernard [facility]; [facility] Work Phone: 07-10-2021 12:39-0400 Body mass index (BMI) [Ratio] 40.94 kg/m2 Obdulia Bernard [facility]; [facility] Work Phone: 07-10-2021 12:39-0400 Body surface area Derived from formula 2.11 m2 Obdulia Alius [facility]; [facility] Work Phone: 07-10-2021 12:39-0400 Body weight 108.18 kg Obdulia Bernard [facility]; [facility] Work Phone: 07-10-2021 12:39-0400 Diastolic blood pressure 83 mm[Hg] Obdulia Bernard [facility]; [facility] Work Phone: Comment on above: Patient Position: Sitting; Cuff Location : Left Arm; Cuff Size: Standard 07-10-2021 12:39-0400 Heart rate 70 /min Obdulia Alius [facility]; [facility] Work Phone: Comment on above: Pattern: Regular 07-10-2021 12:39-0400 Systolic blood pressure 138 mm[Hg] Obdulia Bernard [employer] [facility]; [facility] Work [...] mass index (BMI) [Ratio] 40.94 kg/m2 Beryl Keane DO Work Phone: [facility]; [facility] Work Phone: Comment on above: ate ham and easter dinner yesterday - bp normally 120-130 06-17-2021 08:32-0400 Body surface area Derived from formula 2.11 m2 Beryl Keane DO Work Phone: [facility] [...] 06-17-2021 08:32-0400 Body weight 108.18 kg Beryl Keane DO Work Phone: [facility]; [facility] Work Phone: Comment on above: ate ham and easter dinner yesterday - bp normally 120-130 06-17-2021 08:32-0400 Diastolic blood pressure 80 mm[Hg] Beryl Keane DO Work Phone: [facility]; [facility] Work Phone: Comment on above: Patient Position: Sitting; Cuff Location : Left Arm; Cuff Size: Standard ate ham and easter d inner yesterday - bp normally 120-130 06-17-2021 08:32-0400 Heart rate 75 /min Beryl Keane DO Work Phone: [facility]; [facility] Work Phone: Comment on above: Pattern: Regular ate ham and easter d inner yesterday - bp normally 120-130 06-17-2021 08:32-0400 Respiratory rate 16 /min Beryl Martinezon DO Work Phone: [facility]; [facility] Work Phone: Comment on above: Pattern: Unlabored ate ham and easter d inner yesterday - bp normally 120-130 06-17-2021 08:32-0400 SaO2% (BldA) [Mass fraction] 95 % Beryl Martinezon DO Work Phone: [facility]; [facility] Work Phone: Comment on above: Room air ate ham and easter d inner yesterday - bp normally 120-130 06-17-2021 08:32-0400 Systolic blood pressure 140 mm[Hg] Beryl Martinezon DO Work Phone: [facility]; [facility] Work Phone: Comment on above: Patient Position: Sitting; Cuff Location : Left Arm; Cuff Size: Standard ate ham and easter d inner yesterday - bp normally 120-130 05-16-2021 07:11-0400 Body height 162.56 cm Obdulia [facility]; [facility] Work Phone: 05-16-2021 07:11-0400 Body mass index (BMI) [Ratio] 40.59 kg/m2 Obdulia [facility]; [facility] Work Phone: 05-16-2021 07:11-0400 Body surface area Derived from formula 2.1 m2 [facility]; [facility] Work Phone: 05-16-2021 [id number] Body temperature 97.3 [degF] Obdulia Bernard CMA Comprehensiv e Internal Medicine; [facility] Work Phone: Comment on above: Method: Infrared 05-16-2021 [id number] Body weight 107.28 kg Obdulia Bernard [facility]; [facility] Work Phone: 05-16-2021 07:11-0400 Diastolic blood pressure 78 mm[Hg] Obdulia Bernard [facility]; [facility] Work Phone: Comment on above: Patient Position: Sitting; Cuff Location : Left Arm; Cuff Size: Standard 05-16-2021 07:11-0400 Heart rate 76 /min Obdulia Bernard [facility]; [facility] Work Phone: Comment on above: Pattern: Regular 05-16-2021 07:11-0400 Respiratory rate 18 /min Obdulia Bernard [facility] Comprehensiv e [facility]; [facility] Work Phone: Comment on above: Pattern: Unlabored 05-16-2021 07:11-0400 SaO2% (BldA) [Mass fraction] 94 % Obdulia Bernard [facility]; [facility] Work Phone: Comment on above: Room air 05-16-2021 07:11-0400 Systolic blood pressure 136 mm[Hg] Obdulia Bernard [facility]; [facility] Work Phone: Comment on above: Patient Position: Sitting; Cuff Location : Left Arm; Cuff Size: Standard 02-13-2021 08:26-0500 Body height 162.56 cm Stephanie Mata LPN [facility]; [facility] Work Phone: Comment on above: virtual, reported by pt 02-13-2021 08:26-0500 Body mass index (BMI) [Ratio] 36.99 kg/m2 Stephanie Mata [facility]; [facility] Work Phone: Comment on above: virtual, reported by pt 02-13-2021 08:26-0500 Body surface area Derived from formula 2.02 m2 Stephanie Mata LPN [facility]; [facility] Work Phone: Comment on above: virtual, reported by pt 02-13-2021 08:26-0500 Body temperature 98.5 [degF] Stephanie Mata LPN [facility]; [facility] Work Phone: Comment on above: virtual, reported by pt 02-13-2021 08:26-0500 Body weight 97.75 kg Stephanie Mata MICHAEL [facility]; [facility] Work Phone: Comment on above: virtual, reported by pt 02-13-2021 08:26-0500 Diastolic blood pressure 74 mm[Hg] Stephanie Mata LPN [facility]; [facility] Work Phone: Comment on above: Patient Position: Sitting; Cuff Location : Left Arm; Cuff Size: Standard virtual, reported by pt 02-13-2021 08:26-0500 Heart rate 83 /min Stephanie Mata LPN [facility]; [facility] Work Phone: Comment on above: Pattern: Regular virtual, reported by pt 02-13-2021 08:26-0500 SaO2% (BldA) [Mass fraction] 96 % Stephanie Mata [employer]PER[employer] [facility]; [facility] Work Phone: Comment on above: Room air virtual, reported by pt 02-13-2021 08:26-0500 Systolic blood pressure 110 mm[Hg] Stephaniecristiano Mata MICHAEL [facility]; [facility] [...] Internal Medicine; [facility] Work Phone: 09-22-2021 10:20-0400 Body surface area Derived from formula [...] 10-10-2020 10:22-0400 Systolic blood pressure 108 mm[Hg] Stephanie Mata LPN [facility]; [...] Derived from formula 2.09 m2 Stephanie Mata MICHAEL [facility]; [...] Standard 08-22-2020 12:04-0400 Body height 162.56 cm Jocelyn Hsu [facility]; [facility] Work Phone: 08-22-2020 12:04-0400 Body mass index (BMI) [Ratio] 40.68 kg/m2 Jocelyn Hsu [facility]; [facility] Work Phone: 08-22-2020 12:04-0400 Body surface area Derived from formula 2.1 m2 Jocelyn Hsu [facility]; [facility] Work Phone: 08-22-2020 12:04-0400 Body temperature 97.1 [degF] Jocelyn Hsu [facility]; [facility] Work Phone: Comment on above: Method: Thermal Scan 08-22-2020 12:04-0400 Body weight 107.5 kg Jocelyn Hsu [facility]; [facility] Work Phone: 08-22-2020 12:04-0400 Diastolic blood pressure 70 mm[Hg] Jocelyn Hsu [facility]; [facility] Work Phone: Comment on above: Patient Position: Sitting; Cuff Location : Left Arm; Cuff Size: Standard 08-22-2020 12:04-0400 Heart rate 70 /min Jocelyn Hsu [facility]; [facility] Work Phone: Comment on above: Pattern: Regular 08-22-2020 12:04-0400 Respiratory rate 16 /min Jocelyn Hsu [facility]; [facility] Work Phone: Comment on above: Pattern: Unlabored 08-22-2020 12:04-0400 SaO2% (BldA) [Mass fraction] 98 % Jocelyn Hsu [facility]; [facility] Work Phone: Comment on above: Room air 08-22-2020 12:04-0400 Systolic blood pressure 118 mm[Hg] Jocelyn Hsu [facility]; [facility] Work Phone: Comment on above: Patient Position: Sitting; Cuff Location : Left Arm; Cuff Size: Standard 06-08-2020 07:58-0400 Body height 162.56 cm [facility]; [facility] Work Phone: 06-08-2020 07:58-0400 Body mass index (BMI) [Ratio] 40.85 kg/m2 [facility]; [facility] Work Phone: 06-08-2020 07:58-0400 Body surface area Derived from formula 2.11 m2 [facility]; [facility] Work Phone: 06-08-2020 07:58-0400 Body weight 107.96 kg [facility]; [facility] Work Phone: 06-08-2020 07:58-0400 Diastolic blood pressure 85 mm[Hg] [facility]; [facility] Work Phone: Comment on above: Patient Position: Sitting; Cuff Location : Left Arm; Cuff Size: Standard 06-08-2020 07:58-0400 Heart rate 75 /min [facility]; [facility] Work Phone: Comment on above: Pattern: Regular 06-08-2020 07:58-0400 Systolic blood pressure 118 mm[Hg] [facility]; [facility] Work Phone: Comment on above: Patient Position: Sitting; Cuff Location : Left Arm; Cuff Size: Standard 05-11-2020 14:08-0500 BMI (Body Mass Index) 40.85 kg/m2 [facility]; [facility] Work Phone: 05-11-2020 14:08-0500 Body Temperature 97.1 [degF] [facility]; [facility] Work Phone: Comment on above: Method: Thermal Scan 05-11-2020 14:08-0500 Body weight 107.96 kg [facility]; [facility] Work Phone: 05-11-2020 14:08-0500 BP Diastolic 70 mm[Hg] [facility]; [facility] Work Phone: Comment on above: Patient Position: Sitting; Cuff Location : Left Arm; Cuff Size: Standard 05-11-2020 14:08-0500 BP Systolic 122 mm[Hg] [facility]; [facility] Work Phone: Comment on above: Patient Position: Sitting; Cuff Location : Left Arm; Cuff Size: Standard 05-11-2020 14:08-0500 BSA (Body Surface Area) 2.11 m2 [facility]; [facility] Work Phone: 05-11-2020 14:08-0500 Height 162.56 cm [facility]; [facility] Work Phone: 05-11-2020 14:08-0500 Pulse (Heart Rate) 88 /min Jannie Saenz [facility] Comprehensiv e Internal [facility]; [facility] Work Phone: Comment on above: Pattern: Regular 05-11-2020 14:08-0500 Pulse Oximetry 93 % Beryl Keane [facility]; [facility] Work Phone: Comment on above: Room air 05-11-2020 14:08-0500 Respiratory Rate 16 /min [facility]; [facility] Work Phone: Comment on above: Pattern: Unlabored 05-11-2020 14:08-0500 SaO2% (BldA) [Mass fraction] 93 % [facility]; [facility] Work Phone: Comment on above: Room air 02-08-2020 08:02-0500 BMI (Body Mass Index) 39.69 kg/m2 Stephaniecristiano Marcumman [facility]; [facility] Work Phone: Comment on above: reported by pt 02-08-2020 08:02-0500 Body Temperature 97.5 [degF] Stephanie Mata [facility]; [facility] Work Phone: Comment on above: reported by pt 02-08-2020 08:02-0500 Body weight 104.89 kg Stephanie Mata [facility]; [facility] Work Phone: Comment on above: reported by pt 02-08-2020 08:02-0500 BP Diastolic 73 mm[Hg] Stephanie Mata [facility]; [facility] Work Phone: Comment on above: Patient Position: Sitting; Cuff Location : Left Arm; Cuff Size: Standard reported by pt 02-08-2020 08:02-0500 BP Systolic 115 mm[Hg] Stephanie Adolfo [facility]; [facility] Work Phone: Comment on above: Patient Position: Sitting; Cuff Location : Left Arm; Cuff Size: Standard reported by pt 02-08-2020 08:02-0500 BSA (Body Surface Area) 2.08 m2 Stephanie Mata [facility] Internal Medicine; [facility] Work Phone: Comment on above: reported by pt 02-08-2020 08:02-0500 Height 162.56 cm Stephanie Adolfo [facility]; [facility] Work Phone: Comment on above: reported by pt 02-08-2020 08:02-0500 Pulse (Heart Rate) 71 /min Stephanie Adolfo [facility] Internal Medicine; [facility] Medicine Work Phone: Comment on above: Pattern: Regular reported by pt 11-02-2019 13:46-0400 BMI (Body Mass Index) 40.51 kg/m2 [facility] Internal Medicine Work Phone: 11-02-2019 13:46-0400 Body Temperature 97.1 [degF] [facility] Work Phone: Comment on above: Method: Thermal Scan 11-02-2019 13:46-0400 Body weight 107.06 kg [facility] Work Phone: 11-02-2019 13:46-0400 BP Diastolic 68 mm[Hg] [facility] Work Phone: Comment on above: Patient Position: Sitting; Cuff Location : Left Arm; Cuff Size: Standard 11-02-2019 13:46-0400 BP Systolic 120 mm[Hg] [facility] Work Phone: Comment on above: Patient Position: Sitting; Cuff Location : Left Arm; Cuff Size: Standard 11-02-2019 13:46-0400 BSA (Body Surface Area) 2.1 m2 [facility] Internal Medicine Work Phone: [...] BMI (Body Mass Index) 41.71 kg/m2 Gisselle Garcia [employer] [facility] Work Phone: 08-03-2019 13:20-0400 Body Temperature 97.4 [degF] Gisselle Davidrb [employer] [facility] Work Phone: 08-03-2019 13:20-0400 Body weight 110.22 kg Gisselle Garcia [employer] [facility] Work Phone: 08-03-2019 13:20-0400 BP Diastolic 78 mm[Hg] Gisselle Davidrb [employer] [facility] Work Phone: Comment on above: Patient Position: Sitting; Cuff Location : Left Arm; Cuff Size: Standard 08-03-2019 13:20-0400 BP Systolic 136 mm[Hg] Gisselle Slarb [employer] [facility] Work Phone: Comment on above: Patient Position: Sitting; Cuff Location : Left Arm; Cuff Size: Standard 08-03-2019 13:20-0400 BSA (Body Surface Area) 2.12 m2 Gisselle Slarb [employer]PER[employer] [facility] Work Phone: 08-03-2019 13:20-0400 [...] (BldA) [Mass fraction] 94 % Gisselle Garcia LPN [facility]; [facility] Work Phone: Comment on above: Room air 06-22-2019 08:25-0400 BMI (Body Mass Index) 42.29 kg/m2 Beryl Lakhwinder DO Work Phone: [facility] Work Phone: Comment on above: readings at home are 129/64, 142/78, 128 /76 06-22-2019 08:25-0400 Body Temperature 96.6 [degF] Beryl Keane DO Work Phone: [facility] Work Phone: Comment on above: Method: Temporal readings at home are 129/64, 142/78, 128/76 06-22-2019 08:25-0400 Body weight 111.76 kg Beryl Martinezon DO Work Phone: [facility] Work Phone: Comment on above: readings at home are 129/64, 142/78, 128 /76 06-22-2019 08:25-0400 BP Diastolic 98 mm[Hg] Beryl Martinezon DO Work Phone: [facility] Work Phone: Comment on above: Patient Position: Sitting; Cuff Location : Left Arm; Cuff Size: Standard readings at home are 129/64, 142/78, 128/76 06-22-2019 08:25-0400 BP Systolic 162 mm[Hg] Beryl Keane [...] (Body Mass Index) 41.77 kg/m2 Gisselle Garcia [employer]PER[employer] [facility] Internal Medicine Work Phone: Comment on above: pt took own vitals 06-01-2019 07:49-0400 Body Temperature 98.3 [degF] Gisselle Garcia [employer] [facility] Work Phone: Comment on above: pt took own vitals 06-01-2019 07:49-0400 Body weight 110.39 kg Gisselle Garcia [employer] [facility] Work Phone: Comment on above: pt took own vitals 06-01-2019 07:49-0400 BP Diastolic 99 mm[Hg] Gisselle Garcia [employer]PER[employer] [facility] Internal Medicine Work Phone: Comment on above: Patient Position: Sitting; Cuff Location : Left Arm; Cuff Size: Standard pt took own vitals 06-01-2019 07:49-0400 BP Systolic 139 mm[Hg] Gisselle Garcia [employer]PER[employer] [facility] Internal Medicine Work Phone: Comment on above: Patient Position: Sitting; Cuff Location : Left Arm; Cuff Size: Standard pt took own vitals 06-01-2019 07:49-0400 BSA (Body Surface Area) 2.13 m2 Gisselle Garcia [employer] OPERATOR [facility] Internal Medicine Work Phone: Comment on above: pt took own vitals 06-01-2019 07:49-0400 Height 162.56 cm Gissellerowan Garcia [employer] OPERATOR [facility] Work Phone: Comment on above: pt took own vitals 06-01-2019 07:49-0400 Pulse (Heart Rate) 77 /min Gisselle Garcia [employer] [facility] Work Phone: Comment on above: Pattern: Regular pt took own vitals 05-04-2019 08:34-0500 BMI (Body Mass Index) 41.88 kg/m2 Stephanie Mata [employer]PER[employer] [facility] Internal Medicine Work Phone: Comment on above: Rechecked BP: 148/74 05-04-2019 08:34-0500 Body Temperature 97.2 [degF] Stephanie Mata LPN [facility] Internal Medicine Work Phone: Comment on above: Rechecked BP: 148/74 05-04-2019 08:34-0500 Body weight 110.68 kg Stephanie Mata LPN [facility] Medicine Work Phone: Comment on above: Rechecked BP: 148/74 05-04-2019 08:34-0500 BP Diastolic 86 mm[Hg] Stephanie Mata LPN [facility] Medicine Work Phone: Comment on above: Patient Position: Sitting; Cuff Location : Left Arm; Cuff Size: Standard Rechecked BP: 148/74 05-04-2019 08:34-0500 BP Systolic 150 mm[Hg] Stephanie Mata LPN [facility] Internal Medicine Work Phone: Comment on above: Patient Position: Sitting; Cuff Location : Left Arm; Cuff Size: Standard Rechecked BP: 148/74 05-04-2019 08:34-0500 BSA (Body Surface Area) 2.13 m2 Stephanie Mata LPN [facility] Internal Medicine Work Phone: Comment on above: Rechecked BP: 148/74 05-04-2019 08:34-0500 Height 162.56 cm Stephanie Mata LPN [facility] Internal Medicine Work Phone: Comment on above: Rechecked BP: 148/74 05-04-2019 08:34-0500 Pulse (Heart Rate) 82 /min Stephanie Mata LPN [facility] Internal Medicine Work Phone: Comment on above: Pattern: Regular Rechecked BP: 148/74 05-04-2019 08:34-0500 Pulse Oximetry 95 % Beryl Keane [facility] Internal Medicine Work Phone: Comment on above: Room air Rechecked BP: 148/74 05-04-2019 08:34-0500 Respiratory Rate 16 /min Stephanie Mata LPN [facility] Internal Medicine Work Phone: Comment on above: Pattern: Unlabored Rechecked BP: 148/74 05-04-2019 08:34-0500 SaO2% (BldA) [Mass fraction] 95 % Stephanie Mata LPN [facility]; [facility] Work Phone: Comment on above: Room air Rechecked BP: 148/74 04-04-2019 13:22-0500 BMI (Body Mass Index) 41.77 kg/m2 Gisselle Garcia LPN [facility] Work Phone: Comment on above: hearing [facility]ld[facility] eye exams with [place] [facility] 04-04-2019 13:22-0500 Body Temperature 97.1 [degF] Gisselle Garcia LPN [facility] Work Phone: Comment on above: Method: Temporal hearing wnldoes eye exams with [place] [facility] 04-04-2019 13:22-0500 Body weight 110.39 kg Gisselle Garcia LPN [facility] Work Phone: Comment on above: hearing wnldoes eye exams with [place] [facility] 04-04-2019 13:22-0500 BP Diastolic 98 mm[Hg] Gisselle Garcia LPN [facility] Work Phone: Comment on above: Patient Position: Sitting; Cuff Location : Left Arm; Cuff Size: Standard hearing wnldoes eye exams with [place] [facility] 04-04-2019 13:22-0500 BP Systolic 168 mm[Hg] Gisselle Garcia LPN [facility] Work Phone: Comment on above: Patient Position: Sitting; Cuff Location : Left Arm; Cuff Size: Standard hearing wnldoes eye exams with [place] [facility] 04-04-2019 13:22-0500 BSA (Body Surface Area) 2.13 m2 Gisselle Garcia LPN [facility] Work Phone: Comment on above: hearing wnldoes eye exams with [place] [facility] 04-04-2019 13:22-0500 Height 162.56 cm Gisselle Garcia LPN [facility] Work Phone: Comment on above: hearing wnldoes eye exams with [place] [facility] 04-04-2019 13:22-0500 Pulse (Heart Rate) 74 /min Gisselle Garcia LPN [facility] Work Phone: Comment on above: Pattern: Regular hearing wnldoes eye exams with [place] [facility] 04-04-2019 13:22-0500 Pulse Oximetry 96 % Beryl Keane [facility] Work Phone: Comment on above: Room air hearing wnldoes eye exams with [place] [facility] 04-04-2019 13:22-0500 Respiratory Rate 18 /min Gisselle Garcia LPN [facility] Work Phone: Comment on above: Pattern: Unlabored hearing wnldoes eye exams with [place] [facility] 04-04-2019 13:22-0500 SaO2% (BldA) [Mass fraction] 96 % Gisselle Garcia LPN [facility]; [facility] Work Phone: Comment on above: Room air hearing wnldoes eye exams with [place] [facility] 09-15-2016 14:31-0400 BMI (Body Mass Index) 39.72 kg/m2 Gisselle Garcia LPN [facility] Work Phone: 09-15-2016 14:31-0400 Body Temperature 98.2 [degF] Gisselle Garcia LPN [facility] Work Phone: 09-15-2016 14:31-0400 Body weight 104.95 kg Gisselle Garcia LPN [facility] Work Phone: 09-15-2016 14:31-0400 BP Diastolic 78 mm[Hg] Gisselle Garcia LPN [facility] Work Phone: Comment on above: Patient Position: Sitting; Cuff Location : Left Arm; Cuff Size: Standard 09-15-2016 14:31-0400 BP Systolic 126 mm[Hg] Gisselle Radha RODRIGUEZ [facility] Work Phone: Comment on above: Patient Position: Sitting; Cuff Location : Left Arm; Cuff Size: Standard 09-15-2016 14:31-0400 BSA (Body Surface Area) 2.08 m2 Gisselle Garcia LPN [facility] Work Phone: 09-15-2016 14:31-0400 Height 162.56 cm Gisselle Slarb [employer] OPERATOR [facility] Work Phone: 09-15-2016 14:31-0400 Pulse (Heart Rate) 109 /min Gisselle Slarb FORGE PRESS OPERATOR [facility] Work Phone: Comment on above: Pattern: Regular 09-15-2016 14:31-0400 Pulse Oximetry 95 % Beryl Keane [facility] Work Phone: Comment on above: Room air 09-15-2016 14:31-0400 Respiratory Rate 16 /min Gisselle Slarb FORGE PRESS OPERATOR [facility] Work Phone: Comment on above: Pattern: Unlabored 09-15-2016 14:31-0400 SaO2% (BldA) [Mass fraction] 95 % Gisselle Slarb FORGE PRESS OPERATOR [facility]; [facility] Work Phone: Comment on above: Room air 09-09-2016 08:15-0400 BMI (Body Mass Index) 39.65 kg/m2 Gisselle Slarb FORGE PRESS OPERATOR [facility] Work Phone: 09-09-2016 08:15-0400 Body Temperature 97.9 [degF] Gisselle Slarb FORGE PRESS OPERATOR [facility] Work Phone: 09-09-2016 08:15-0400 Body weight 104.78 kg Gisselle Slarb FORGE PRESS OPERATOR [facility] Work Phone: 09-09-2016 08:15-0400 BP Diastolic 84 mm[Hg] Gisselle Slarb FORGE PRESS OPERATOR [facility] Work Phone: Comment on above: Patient Position: Sitting; Cuff Location : Left Arm; Cuff Size: Standard 09-09-2016 08:15-0400 BP Systolic 128 mm[Hg] Gisselle Slarb FORGE PRESS OPERATOR [facility] Work Phone: Comment on above: Patient Position: Sitting; Cuff Location : Left Arm; Cuff Size: Standard 09-09-2016 08:15-0400 BSA (Body Surface Area) 2.08 m2 Gisselle Slarb FORGE PRESS OPERATOR [facility] Work Phone: 09-09-2016 08:15-0400 Height 162.56 cm Gisselle Slarb FORGE PRESS OPERATOR [facility] Work Phone: 09-09-2016 08:15-0400 [...] Date Encounter Type Care Provider Facility Start: 09-07-2024 ambulatory Beryl Keane Facilit y:[facility] Start: 08-29-2024 End: 08-29-[address] Beryl Keane DO Work Phone: -Physical Therapy Start: 08-29-2024 End: 08-29-[address] Beryl Keane DO -Physical Therapy Work Phone: Start: 08-22-2024 Non-patient / Non-visit Dr. Rowley [facility] Work Phone: Start: 08-22-[address] Iveth Keane DO -Cat Scan [facility] Work Phone: Start: 08-22-2024 ambulatory Beryl Keane Facilit y:[facility] Start: 08-17-[address] Renay Keane DO -Physical Therapy Work Phone: Start: 08-13-2024 End: 08-13-[address] Beryl Keane DO Work Phone: [facility] Work Phone: Start: 08-13-2024 End: 08-13-[address] Beryl Keane DO [facility] Work Phone: Start: 08-13-2024 End: 08-13-2024 ambulatory Beryl Keane Facility:[facility] Start: 07-08-2024 Encounter for other preprocedural examination Snehal Lozano [facility] Start: 07-05-2024 End: 07-05-[address] Snehal Lozano DO [facility] Work Phone: Start: 07-05-2024 End: 07-05-2024 ambulatory Beryl Keane Facility:[facility] Start: 06-21-2024 Non-patient / Non-visit Dr. Can Lozano DO [facility] Start: 06-21-2024 End: 06-21-2024 Admission to same day surgery center Dr. Snehal Lozano DO [facility] Start: 06-21-2024 End: 06-21-2024 ambulatory Snehal Lozano Facility:[facility] Start: 06-14-2024 End: 06-14-2024 ambulatory Beryl Keane Facility:[facility] Start: 06-14-2024 End: 06-14-2024 Non-patient / Non-visit Dr. Link Jeffrey MD -[facility] Work Phone: Start: 06-09-2024 End: 06-09-[address] Snehal Lozano DO [facility] Work Phone: Start: 06-09-2024 End: 06-09-2024 ambulatory Beryl Keane Facility:[facility] Start: 05-30-2024 Non-patient / Non-visit Dr. Verna COFFEY -[facility] Start: 05-30-2024 End: 05-30-[address] Beryl Keane DO Work Phone: [facility] Work Phone: Start: 05-30-2024 End: 05-30-[address] Beryl Keane DO -Cardiovascular Services Work Phone: Start: 05-30-2024 End: 05-30-2024 ambulatory Beryl Keane Facility:[facility] Start: 04-25-2024 End: 04-25-[address] Beryl Keane DO Work Phone: [facility] Work Phone: Start: 04-25-2024 End: 04-25-[address] Snehal Lozano DO -Laboratory, Specimen Work Phone: Start: 04-25-2024 End: 04-25-[address] Snehal Lozano DO -[facility] Work Phone: Start: 04-25-2024 End: 04-25-2024 ambulatory Beryl Keane Facility:[facility] Start: 04-25-2024 End: 04-25-2024 ambulatory Beryl Keane Facility:[facility] Start: 04-12-2024 End: 04-12-[address] Larry Hays MD -[facility] Start: 04-12-2024 End: 04-12-2024 ambulatory Beryl Keane Facility:[facility] Start: 04-08-2024 End: 04-08-2024 ambulatory Beryl Keane Facility:[facility] Start: 04-08-2024 End: 04-08-[address] Beryl Keane DO -Physical Therapy Work Phone: Start: 02-29-2024 End: 02-29-[address] Beryl Keane DO -Ultrasound, [facility] Work Phone: Start: 02-29-2024 End: 02-29-2024 ambulatory Beryl Keane Facility:[facility] Start: 10-02-2023 End: 10-02-2023 ambulatory Beryl Keane Facility:[facility] Start: 10-02-2023 End: 10-02-2023 ambulatory Beryl Keane Facility:[facility] Start: 01-01-2023 End: 01-01-2023 Office outpatient visit 25 minutes Beryl Keane DO Work Phone: [facility] Start: 01-01-2023 Review Beryl Martinezo n DO Work Phone: [facility] Start: 10-29-2022 End: 10-29-[address] Beryl Keane Work Phone: [facility] Work Phone: Start: 10-29-2022 End: 10-29-[address] Beryl Keane Work Phone: [facility]-Cat Scan, [facility] Work Phone: Start: 10-22-2022 End: 10-22-2022 Office outpatient visit 15 minutes Beryl Keane DO Work Phone: [facility] Internal Medicine Start: 10-01-2022 End: 10-01-[address] Beryl Keane Work Phone: [facility] Work Phone: Start: 10-01-2022 End: 10-01-[address] Beryl Keane Work Phone: [facility] [place], [facility] Work Phone: Start: 09-25-2022 End: 09-25-[address] Beryl Keane Work Phone: [facility] Start: 09-25-2022 End: 09-25-2022 Office outpatient visit 25 minutes Beryl Keane DO Work Phone: [facility] Start: 09-25-2022 Review Beryl Magana n DO Work Phone: [facility] Start: 06-19-2022 ambulatory Beryl Keane DO [facility] Start: 06-19-2022 End: 06-19-[address] Beryl Keane Work Phone: [facility] Start: 06-19-2022 End: 06-19-2022 Office outpatient [...] 08-03-2019 Office outpatient visit 25 minutes Beryl Keane [facility] Start: 06-22-2019 End: 06-22-2019 [...] Work Phone: Patient encounter procedure Jannie Saenz [facility]; [facility] Work Phone: End: 08-22-2020 Patient encounter procedure Jair Mcleod [facility]; [facility] Work Phone: Patient encounter procedure Stephanie Mata [facility]; [facility] Work Phone: Patient encounter procedure Stephanie Mata [facility]; [facility] Work Phone: Patient encounter procedure Obdulia Bernard [facility]; [facility] Work Phone: Patient encounter procedure Mick Das [facility]; [facility] Work Phone: Patient encounter procedure Mick Das [facility]; [facility] Work Phone: Patient encounter procedure Mick Das [facility]; [facility] Work Phone: Patient encounter procedure Mick Das [facility]; [facility] Work Phone: Patient encounter procedure Ashwin Shah [facility]; [facility] Work Phone: Patient encounter procedure Gisselle Garcia FORGE PRESS OPERATOR [facility]; [facility] Work Phone: Patient encounter procedure Ashwin Shah FORGE PRESS OPERATOR [facility]; [facility] Work Phone: Procedures Date Procedure Procedure Detail Performing Clinician Start: 08-22-2024 CT angiography of coronary arteries Dr. Beryl Keane DO Work Phone: Start: 08-13-2024 MRI of lumbar spine Dr. Beryl Keane DO Work Phone: Start: 04-12-2024 X-ray of chest, PA and lateral views Dr. Beryl Keane DO Work Phone: Start: 02-29-[address] Beryl Keane DO Work Phone: Start: 10-29-2022 Computed tomography of abdomen and pelvis with contrast Dr. Beryl Keane Work Phone: Start: 10-29-2022 End: 10-29-2022 Abdomen/Pelvis WITH Contrast Procedure Note: See Note; NOTES: [facility] Imaging Services [address] [place] [address] Abdomen/Pelvis WITH Contrast MR#: [id number] Acct: [id number] Name: CAMILLE BERNABE Rep #: [id number] : 1950 F 72 From: Preeti ott MD PCP: Dr. Beryl Keane DO Status: REG CLI Study: Abdomen/Pelvis WITH Contrast Date of Exam: Exam# [id number] Ordering Dr: Beryl Keane DO HISTORY: right [...] at 9:15 EDT , CC: Dr. Beryl Keane DO Narcotics Agent: Signed Beryl Keane DO Work Phone: Start: 10-01-[address] Beryl Keane Work Phone: Start: 10-01-2022 End: 10-02-2022 Abdomen Limited Procedure Note: See Note; NOTES: [facility] Imaging Services [address] [place] [address] Abdomen Limited MR#: [id number] Acct: [id number] Name: CAMILLE BERNABE Rep #: [id number] : 1950 F 72 From: Mario coyle MD PCP: Dr. Beryl Keane DO Status: REG CLI Study: Abdomen Limited Date of Exam: 10/01/22 Exam# [id number] Ordering Dr: Beryl Keane DO STUDY: ABDOMINAL [...] EDT , CC: Dr. Beryl Keane DO Narcotics Agent: Signed Beryl Keane DO Work Phone: Start: 09-25-2022 End: 09-29-2022 Abdomen Single View Procedure Note: See Note; NOTES: [facility] [address] [place] [address] Abdomen Single View MR#: [id number] Acct: [id number] Name: CAMILLE BERNABE Rep #: [id number] : 1950 F 72 From: Jimenez Baird PCP: Dr. Beryl Keane DO Status: DEP AMB Study: Abdomen Single View Date of Exam: 09/25/22 Exam# [id number] Ordering Dr: Beryl Keane DO INDICATION: RUQ [...] Signed: Jimenez Briceno MD at 20:21 EDT Reading Location ID and State: [facility] / [place] Tel , Service support , CC: Dr. Beryl Keane DO Narcotics Agent: Signed Beryl Keane DO Work Phone: Start: 09-25-2022 Diagnostic radiography of abdomen Dr. Beryl Keane Work Phone: Start: 06-19-2022 End: 06-19-2022 Chest PA and Lateral Procedure Note: See Note; NOTES: [facility] [address] [place] [address] Chest PA and Lateral MR#: [id number] Acct: [id number] Name: CAMILLE BERNABE Rep #: [id number] : 1950 F 72 From: Denver Strong DO PCP: Dr. Beryl Keane DO Status: DEP AMB Study: Chest PA and Lateral Date of Exam: 06/19/22 Exam# [id number] Ordering Dr: Beryl Keane DO STUDY: X-RAY [...] 17:17 EDT Reading Location ID and State: [address] [place] [address] Tel [phone], Service support , CC: Dr. Beryl Keane DO Narcotics Agent: Signed Beryl Keane DO Work Phone: Start: 06-19-2022 Plain chest X-ray Dr. Beryl Keane Work Phone: Start: 04-02-2022 End: 04-02-2022 HIP, UNI W/ Pelvis 2-3 Views Procedure Note: See Note; NOTES: [facility] [address] [place] [address] HIP, UNI W/ Pelvis 2-3 Views MR#: [id number] Acct: [id number] Name: CAMILLE BERNABE Rep #: [id number] : 1950 F 71 From: Baudilio Tristan DO PCP: Dr. Beryl Keane DO Status: DEP AMB Study: HIP, UNI W/ Pelvis 2-3 Views Date of Exam: 03/24 Exam# [id number] Ordering Dr: Beryl Keane DO INDICATION: having [...] 22:10 EST Reading Location ID and State: [facility] / [place] Tel [phone], Service support , CC: Dr. Beryl Keane DO Narcotics Agent: Signed Beryl Keane DO Work Phone: Start: 06-20-2021 End: 06-27-2021 Dexa Bone Density Study Comments: See Note; NOTES: [facility] Imaging Services [address] [place] [address] Dexa Bone Density Study MR#: [id number] Acct: [id number] Name: CAMILLE BERNABE Rep #: [id number] : 1950 F 71 From: Mario coyle MD PCP: Dr. Beryl Keane DO Status: REG CLI Study: Dexa Bone Density Study Date of Exam: 06/20/21 Exam# [id number] Ordering Dr: Lakhwinder,Beryl DO STUDY: DUAL ENERGY [...] EDT , CC: Dr. Beryl Keane DO Narcotics Agent: Signed Beryl Keane DO Work Phone: Start: 05-16-2021 End: 05-16-2021 Cerv Spine 2 or 3 Views Comments: See Note; NOTES: [facility] [address] [place] [address] Cerv Spine 2 or 3 Views MR#: [id number] Acct: [id number] Name: CAMILLE BERNABE Rep #: [id number] : 1950 F 70 From: Justin Carlin DO PCP: Dr. Beryl Keane DO Status: DEP AMB Study: Cerv Spine 2 or 3 Views Date of Exam: 05/16/21 Exam# [id number] Ordering Dr: Beryl Keane DO INDICATION: RADICULOPATHY [...] EDT , CC: Dr. Beryl Keane DO Narcotics Agent: Signed Beryl Keane DO Work Phone: Start: 03-08-2021 End: 03-08-2021 Cardiology Visit Report Comments: See Note; NOTES: [facility] [address] [place] [address]. [address] [place] [address] OFFICE VISIT Date of Service: 03/08/21 MR#: [id number] Acct: [id number] Name: CAMILLE BERNABE Rep #: [id number] : 1950 Provider: Dr. eNstor begum MD Age/Sex: 70/F Location: [facility] Status: Signed [facility] HPI History of Present Illness Details: This [...] I10 03/08/21 1441 <Electronically signed by Nestor oD MD> Date Nestro Do MD Cosigner Signature: Date (if applicable) CC: DO Beryl Barnett DO Work Phone: Start: 09-13-2020 End: 09-13-2020 Venous Duplex US, Unilateral Comments: See Note; NOTES: [facility] [address] [place] [address] Venous Duplex US, Unilateral 09/13/20 1539 MR#: [id number] Acct: [id number] Name: CAMILLE BERNABE Rep #: [id number] : 1950 70 From: Jigar Lawrence MD [...] Performed By: Rolly Liz RVT 09/13/201953 Date Jiagr Lawrence MD CC: Dr. Beryl Keane DO Date Dictated: 09/13/20 1539 Date Transcribed: 09/13/201953 Narcotics Agent: Radha Keane DO Work Phone: Start: 11-04-2019 End: 11-04-2019 Cardiology Visit Report Comments: See Note; NOTES: [facility] [address] [place], [place] [address]. 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 This note was generated with GeeYuuation software. It may contain incorrect words, spelling, and punctuation that were not noted in checking the note before signing. 08/02/1950 <Electronically signed by Nestor Do MD> Date Nestor Do MD CC: Dr. Beryl Keane, DO; Dr. Nestor Do MD Date Dictated: 08/02/19932 Date Transcribed: 08/02/19932 Narcotics Agent: PM Signed Beryl Keane Start: 08-02-2019 End: 08-02-2019 Echo Complete Comments: See Note; NOTES: [facility] [place] [address] Echo Complete 08/02/19903 MR#: [id number] Acct: [id number] Name: CAMILLE BERNABE Rep #: [id number] : 1950 69 From: Nestor Do MD Attending Dr: Dr. Nestor Do MD Status: RE G CLI Ordering Dr: Nestor Do MD Date: 08/02/19 Location: [facility] Sex: F C Admitted: Reason [...] Keane Performed By: Nidia Dickey, RDCS, RVT 08/02/198 Date Nestor Do MD CC: Dr. Beryl Keane DO; Dr. Nestor Do MD Date Dictated: 08/02/1904 Date Transcribed: 08/02/191637 Narcotics Agent: Signed Nestor Do Work Phone: Start: 07-28-2019 End: 08-03-2019 Renal Artery Duplex Ultrasound Comments: See Note; NOTES: [facility] [address] [place] [address] Renal Artery Duplex Ultrasound 07/28/19 0858 MR#: [id number] Acct: [id number] Name: CAMILLE BERNABE Rep #: [id number] : 1950 69 From: Miguel Angel Alicea MD Attending Dr: Dr. Nestor Do MD Status: RE G CLI Ordering Dr: Nestor Do MD Date: 07/28/19 Location: [facility] Sex: F C Admitted: Reason For Study: [...] Nestor Do Performed By: Rolly Liz RVT 08/03/19821 Date Miguel Angel Alicea MD CC: Dr. Beryl Keane DO; Dr. Nestor Do MD Date Dictated: 07/28/19857 Date Transcribed: 08/03/19821 Narcotics Agent: Signed Nestor Do Work Phone: Start: 07-14-2019 End: 07-14-2019 12 Lead EKG performed by [facility] Comments: See Note; NOTES: [facility] [address] [place] [address] 12 Lead EKG performed by [facility] 07/14/19 1059 MR#: [id number] Acct: [id number] Name: CAMILLE BERNABE Rep #: [id number] : 1950 69 From: Nestor Do MD Attending Dr: Dr. Nestor Do MD Status: DE P BEKAH Ordering Dr: Nestor Do MD Date: 07/14/19 [place] [facility] Sex: F C Admitted: BMS/12 Lead EKG performed by [facility] ECG Report Interpretation Si nus Rhythm Electronically signed on 07/14/2019 at 13:11 by Nestor Do Software Version 8610 07/14/19 1331 Date Nestor Do MD CC: Dr. Beryl Keane, Date Dictated: 07/14/19 105 Date Transcribed: 07/14/191058 Narcotics Agent: PM Signed Nestor Do Work Phone: Start: 07-14-2019 End: 07-14-2019 MR/[email or web address] Comments: See Note; NOTES: [facility] [address] [place] [address]. [address] [place] [address] OFFICE VISIT Date of Service: 07/14/19 MR#: [id number] Acct: [id number] Name: CAMILLE BERNABE Rep #: [id number] : 1950 Provider: Dr. Nestor begum MD Age/Sex: 69/F Location: [facility] Status: Signed HPI HPI History of Present [...] Visit Reasons: CP, LT ARM PAIN RADIATING. Greenhouse Laborer Required: No Accompanied by: Self Allergies latex [...] thyroid 0.5 g PO BID 07/14/19 [History] PFSH Medical History Hypothyroidism (Chronic) Essential hypertension [...] >= 40) Time Spent (min) 45 Comment 68752 Coding Level of Care Code Off vis,new,level 4 Diagnoses Chest pain, unspecified R07.9 Essential hypertension I10 Obesity E66.9 ?Obesity classification: adult class 3 (BMI >= 40) Time Spent (min) 45 Comment 96259 Supplemental Info Supplemental Information Stress Echo: 09/25/2017 [...] CC: Dr. Beryl Keane, DO Beryl Keane Start: 04-21-2019 End: 04-22-2019 Dexa Bone Density Study Comments: See Note; NOTES: [facility] Imaging Services [address] [place] [address] Dexa Bone Density Study MR#: [id number] Acct: [id number] Name: CAMILLE BERNABE Rep #: [id number] : 1950 F 68 From: Mario Randolph MD PCP: Beryl Keane DO Status: REG CLI Study: Dexa Bone Density Study Date of Exam: 04/21/19 Exam# [id number] Ordering Dr: Beryl Keane DO STUDY: DUAL [...] Service support , CC: Beryl Keane DO Narcotics Agent: Signed Beryl Keane Work Phone: Start: 04-21-2019 End: 04-21-2019 SCREEN MAMM (CAD) W/AMPARO BILAT Comments: See Note; NOTES: [facility] Imaging Services [address] [place] [address] SCREEN MAMM (CAD) W/AMPARO BILAT MR#: [id number] Acct: [id number] Name: CAMILLE BERNABE Rep #: [id number] : 1950 F 68 From: Mario Randolph MD PCP: Beryl Keane DO Status: REG CLI Study: SCREEN MAMM (CAD) W/AMPARO BILAT Date of Exam: 04/21/19 Exam# [id number] Ordering Dr: Beryl Keane DO MAMMOGRAPHY - [...] delay biopsy of a clinically suspicious abnormality. [id number] Electronically Signed: Mario Randolph, at 15:36 EST , Service support , CC: Beryl Keane DO Narcotics Agent: Signed Beryl Keane Work Phone: Plan of Treatment Date Care Activity Detail Author Start: 06-21-2024 Anes hysteroscopy&/hysterosalping ography w/bx ANESTH HYSTEROSCOPE/GRAPH [facility] Start: 06-21-2024 Hysteroscopy bx endometrium&/polypc w/wo d&c HYSTEROSCOPY BIOPSY [facility] Start: 06-21-2024 Ambulation without limitation [facility] Start: 06-21-2024 Medical regimen orders management [facility] Start: 06-21-2024 Medication education [facility] Start: 06-21-2024 Patient discharge [facility] Start: 06-21-2024 Procedure discontinued [facility] Start: 06-21-2024 Taking patient vital signs [facility] Start: 06-21-[address] [facility] Start: 06-21-2024 [facility] Start: 06-09-2024 Electrocardiographic procedure [facility] Start: 01-01-2023 Procedure Education Eprescribed prescriptions (G8553) [facility]; [facility] Work Phone: Start: 01-01-2023 Provider Instructions for Treatment [facility]; [facility] Work Phone: Start: 01-01-2023 25 hydroxy includes fractions if performed CALCIFIDIOL (35648) VIT D 25 [facility]; [facility] Work Phone: Start: 01-01-2023 Assay of thyroid stimulating hormone tsh TSH (09534) [facility]; [facility] Work Phone: Start: 01-01-2023 Urnls dip stick/tablet reagent auto microscopy URINALYSIS, W/ MICRO (46067) [facility]; [facility] Work Phone: Start: 01-01-2023 Urine albumin quantitative MICROALBUMIN: CREATININE RATIO (35850) AND (58831) [facility]; [facility] Work Phone: Start: 01-01-2023 Comprehensive metabolic panel METABOLIC PANEL, COMPREHENSIVE (86627) [facility]; [facility] Work Phone: Start: 01-01-2023 Lipid panel LIPID PANEL (04934) [facility]; [facility] Work Phone: Start: 01-01-2023 Blood count complete auto&auto difrntl wbc CBC W/AUTO DIFF WBC (79490) [facility]; [facility] Work Phone: Start: 10-22-2022 Procedure Education Eprescribed prescriptions (G8553) [facility]; [facility] Work Phone: Start: 09-25-2022 Procedure Education Eprescribed prescriptions (G8553) [facility]; [facility] Work Phone: Start: 09-25-2022 Provider Instructions for Treatment [facility]; [facility] Work Phone: Start: 06-19-2022 Procedure Education Eprescribed prescriptions (G8553) [facility]; [facility] Work Phone: Start: 06-19-2022 Provider Instructions for Treatment [facility]; [facility] Work Phone: Start: 06-19-2022 25 hydroxy includes fractions if performed CALCIFIDIOL (71518) VIT D 25 [facility]; [facility] Work Phone: Start: 06-19-2022 Urnls dip stick/tablet reagent auto microscopy URINALYSIS, W/ MICRO (36640) [facility]; [facility] Work Phone: Start: 06-19-2022 Urine albumin quantitative MICROALBUMIN: CREATININE RATIO (59571) AND (28905) [facility]; [facility] Work Phone: Start: 06-19-2022 Comprehensive metabolic panel METABOLIC PANEL, COMPREHENSIVE (14962) [facility]; [facility] Work Phone: Start: 06-19-2022 Lipid panel LIPID PANEL (15094) [facility]; [facility] Work Phone: Start: 06-19-2022 Blood count complete auto&auto difrntl wbc CBC W/AUTO DIFF WBC (59922) [facility]; [facility] Work Phone: Start: 06-19-2022 Assay of thyroid stimulating hormone tsh TSH (28255) [facility]; [facility] Work Phone: Start: 03-19-2022 Procedure Education Eprescribed prescriptions (G8553) [facility]; [facility] Work Phone: Start: 03-19-2022 Provider Instructions for Treatment [facility]; [facility] Work Phone: Start: 12-11-2021 Procedure Education Eprescribed prescriptions (G8553) [facility]; [facility] Work Phone: Start: 12-11-2021 Provider Instructions for Treatment [facility]; [facility] Work Phone: Start: 12-11-2021 25 hydroxy includes fractions if performed CALCIFEDIOL (22753) [facility]; [facility] Work Phone: Start: 12-11-2021 Urnls dip stick/tablet reagent auto microscopy URINALYSIS, W/ MICRO (42843) [facility]; [facility] Work Phone: Start: 12-11-2021 Urine albumin quantitative MICROALBUMIN: CREATININE RATIO (41181) AND (40998) [facility]; [facility] Work Phone: Start: 12-11-2021 Comprehensive metabolic panel METABOLIC PANEL, COMPREHENSIVE (59088) [facility]; [facility] Work Phone: Start: 12-11-2021 Lipid panel LIPID PANEL (66755) [facility]; [facility] Work Phone: Start: 12-11-2021 Blood count complete auto&auto difrntl wbc CBC W/AUTO DIFF WBC (45820) [facility]; [facility] Work Phone: Start: 12-11-2021 Assay of thyroid stimulating hormone tsh TSH (17185) [facility]; [facility] Work Phone: Start: 09-05-2021 Procedure Education Eprescribed prescriptions (G8553) [facility]; [facility] Work Phone: Start: 09-05-2021 Provider Instructions for Treatment [facility]; [facility] Work Phone: Start: 07-10-2021 Procedure Education Eprescribed prescriptions (G8553) [facility]; [facility] Work Phone: Start: 07-10-2021 Provider Instructions for Treatment Reviewed Diagnostic Tests [facility]; [facility] Work Phone: Start: 06-17-2021 Procedure Education Eprescribed prescriptions (G8553) [facility]; [facility] Work Phone: Start: 06-17-2021 Provider Instructions for Treatment [facility]; [facility] Work Phone: Start: 05-16-2021 Procedure Education Eprescribed prescriptions (G8553) [facility]; [facility] Work Phone: Start: 05-16-2021 Provider Instructions for Treatment [facility]; [facility] Work Phone: Start: 05-16-2021 25 hydroxy includes fractions if performed CALCIFIDIOL (81734) VIT D 25 [facility]; [facility] Work Phone: Start: 05-16-2021 Urnls dip stick/tablet reagent auto microscopy URINALYSIS, W/ MICRO (56254) [facility]; [facility] Work Phone: Start: 05-16-2021 Urine albumin quantitative MICROALBUMIN: CREATININE RATIO (40509) AND (60040) [facility]; [facility] Work Phone: Start: 05-16-2021 Comprehensive metabolic panel METABOLIC PANEL, COMPREHENSIVE (29736) [facility]; [facility] Work Phone: Start: 05-16-2021 Lipid panel LIPID PANEL (21674) [facility]; [facility] Work Phone: Start: 05-16-2021 Blood count complete auto&auto difrntl wbc CBC W/AUTO DIFF WBC (73428) [facility]; [facility] Work Phone: Start: 05-16-2021 Assay of thyroid stimulating hormone tsh TSH (60038) [facility]; [facility] Work Phone: Start: 02-13-2021 Procedure Education Eprescribed prescriptions (G8553) [facility]; [facility] Work Phone: Start: 02-13-2021 Provider Instructions for Treatment [facility]; [facility] Work Phone: Start: 11-21-2020 Procedure Education Eprescribed prescriptions (G8553) [facility]; [facility] Work Phone: Start: 11-21-2020 Provider Instructions for Treatment [facility]; [facility] Work Phone: Start: 11-21-2020 Urnls dip stick/tablet reagent auto microscopy URINALYSIS, W/ MICRO (52918) [facility]; [facility] Work Phone: Start: 11-21-2020 Urine albumin quantitative MICROALBUMIN: CREATININE RATIO (14050) AND (87276) [facility]; [facility] Work Phone: Start: 10-10-2020 Procedure Education Eprescribed prescriptions (G8553) [facility]; [facility] Work Phone: Start: 10-10-2020 Provider Instructions for Treatment [facility]; [facility] Work Phone: Start: 09-13-2020 Procedure Education Eprescribed prescriptions (G8553) [facility]; [facility] Work Phone: Start: 08-22-2020 Procedure Education Eprescribed prescriptions (G8553) [facility]; [facility] Work Phone: Start: 08-22-2020 Provider Instructions for Treatment [facility]; [facility] Work Phone: Start: 08-22-2020 25 hydroxy includes fractions if performed CALCIFIDIOL (55821) VIT D 25 [facility]; [facility] Work Phone: Start: 08-22-2020 Lipoprotein blood bronson numbers & subclasses NMR Profile (57483) [facility]; [facility] Work Phone: Start: 08-01-2020 C-reactive protein high sensitivity C-REACT PROT HIGH SENS(hsCRP) (10304) [facility]; [facility] Work Phone: Comment on above: Fax Results to [phone] Start: 08-01-2020 25 hydroxy includes fractions if performed CALCIFEDIOL (88861) [facility]; [facility] Work Phone: Comment on above: Fax Results to [phone] Start: 08-01-2020 Assay of thyroid stimulating hormone tsh TSH (THYROID STIMULATING HORMONE) (90865) [facility]; [facility] Work Phone: Comment on above: Fax Results to [phone] Start: 08-01-2020 Comprehensive metabolic panel METABOLIC PANEL, COMPREHENSIVE (72705) [facility]; [facility] Work Phone: Comment on above: Fax Results to [phone] Start: 08-01-2020 Hemoglobin glycosylated a1c HGB A1C (36547) [facility] Work Phone: Comment on above: Fax Results to [phone] Start: 06-08-2020 Procedure Education Eprescribed prescriptions (G8553) [facility]; [facility] Work Phone: Start: 06-08-2020 Provider Instructions for Treatment [facility]; [facility] Work Phone: Start: 06-08-2020 Hepatitis c antibody HEPATITIS C ANTIBODY (28904) [facility]; [facility] Work Phone: Start: 05-11-2020 Procedure Education Eprescribed prescriptions (G8553) [facility]; [facility] Work Phone: Start: 05-11-2020 Provider Instructions for Treatment [facility]; [facility] Work Phone: Start: 02-08-2020 Procedure Education Eprescribed prescriptions (G8553) [facility]; [facility] Work Phone: Start: 02-08-2020 Provider Instructions for Treatment [facility]; [facility] Work Phone: Start: 02-08-2020 Blood count complete automated CBC & PLATELETS (AUTO) (00861) [facility]; [facility] Work Phone: Start: 02-08-2020 Cobalamin (Vitamin B12) [Mass/Vol] VITAMIN B-12 (CYANOCOBALAMIN) (14737) [facility]; [facility] Work Phone: Start: 02-08-2020 Heavy metal qualitative any analytes HEAVY METAL SCREEN (41737) [facility]; [facility] Work Phone: Start: 02-08-2020 Hepatitis c antibody HEPATITIS C ANTIBODY (96808) [facility]; [facility] Work Phone: Start: 02-08-2020 Nuclear Ab IF (S) [Titer] EVELINE (ANTINUCLEAR ANTIBODY) (13087) [facility]; [facility] Work Phone: Start: 02-08-2020 Protein [Mass/Vol] Serum Protein Electrophoresis (SPEP) (58531) [facility]; [facility] Work Phone: Start: 02-08-2020 Sedimentation rate rbc non-automated SED RATE ERYTHROCYTE (79176) [facility]; [facility] Work Phone: Start: 02-08-2020 HbA1c (Bld) [Mass fraction] HGB A1C (47476) [facility]; [facility] Work Phone: Comment on above: do in 3mo ( april Start: 02-08-2020 Lipoprotein blood bronson numbers & subclasses NMR Profile (34604) [facility]; [facility] Work Phone: Start: 02-08-2020 TSH Qn TSH (THYROID STIMULATING HORMONE) (93877) [facility]; [facility] Work Phone: Start: 02-08-2020 Urine albumin quantitative MICROALBUMIN: CREATININE RATIO (25435) AND (93385) [facility]; [facility] Work Phone: Start: 02-08-2020 Comprehensive metabolic panel METABOLIC PANEL, COMPREHENSIVE (38871) [facility]; [facility] Work Phone: Start: 02-08-2020 Blood count complete auto&auto difrntl wbc CBC with auto diff (47870) [facility]; [facility] Work Phone: Start: 11-02-2019 Procedure Education Eprescribed prescriptions (G8553) [facility] Work Phone: Start: 11-02-2019 Provider Instructions for Treatment [facility] Work Phone: Start: 08-03-2019 Procedure Education Eprescribed prescriptions (G8553) [facility] Work Phone: Start: 08-03-2019 Provider Instructions for Treatment [facility] Work Phone: Start: 08-03-2019 Lipoprotein blood bronson numbers & subclasses NMR Profile (50494) [facility] Work Phone: Start: 08-03-2019 Urnls dip stick/tablet reagent auto microscopy URINALYSIS, W/ MICRO (74071) [facility] Work Phone: Start: 08-03-2019 TSH Qn TSH (08021) [facility] Work Phone: Start: 08-03-2019 Urine albumin quantitative MICROALBUMIN: CREATININE RATIO (80297) AND (70124) [facility] Work Phone: Start: 08-03-2019 Comprehensive metabolic panel METABOLIC PANEL, COMPREHENSIVE (45839) [facility] Work Phone: Start: 08-03-2019 Blood count complete auto&auto difrntl wbc CBC W/AUTO DIFF WBC (56724) [facility] Work Phone: Start: 06-22-2019 Procedure Education Eprescribed prescriptions (G8553) [facility] Work Phone: Start: 06-22-2019 Provider Instructions for Treatment [facility] Work Phone: Start: 06-01-2019 Procedure Education Eprescribed prescriptions (G8553) [facility] Work Phone: Start: 06-01-2019 Provider Instructions for Treatment [facility] Work Phone: Start: 05-04-2019 Procedure Education Eprescribed prescriptions (G8553) [facility] Work Phone: Start: 05-04-2019 Provider Instructions for Treatment [facility] Work Phone: Start: 04-04-2019 Oncology colorectal screening bronson 10 dna markrs Cologuard - Strool Based DNA Test, CRC SCREEN (80250) [facility] Work Phone: Start: 04-04-2019 Procedure Education Eprescribed prescriptions (G8553) [facility] Work Phone: Start: 04-04-2019 Provider Instructions for Treatment [facility] Work Phone: Start: 09-15-2016 Procedure Education Eprescribed prescriptions (G8553) [facility] Work Phone: Start: 09-15-2016 Provider Instructions for Treatment Follow up if no improvement or if symptoms worsen [facility] Work Phone: Start: 09-09-2016 Procedure Education Eprescribed prescriptions (G8553) [facility] Work Phone: Start: 09-09-2016 Provider Instructions for Treatment [facility] Work Phone: Patient referral [facility] Work Phone: [facility] Work Phone: [facility] Work Phone: [facility] Work Phone: [facility] Work Phone: [facility]; [facility] Work Phone[facility]; [facility] Work Phone: [facility]; [facility] Work Phone: [facility]; [facility] Work Phone: [facility]; [facility] Work Phone: [facility]; [facility] Work Phone: [facility]; [facility] Work Phone: [facility]; [facility] Work Phone: [facility]; [facility] Work Phone: [facility]; [facility] Work Phone: Payers Date Payer Category Payer Unknown 2023 Self-pay [id number] 2023 Medicare [id number] 2021 Medicare [id number] 2021 Unknown [id number] 2016 Private Health Insurance [id number] 1950 Unknown [id number] Unknown [facility] [id number] Unknown [id number] Unknown [id number] [id number] Unknown [id number] [id number] Unknown [id number] 2.840.1.461504.3.579.2.462 Unknown [id number] [id number] Unknown [id number] 2.840.1.702773.3.579.2.462 Unknown [id number] 2.840.1.942650.3.579.2.462 Unknown [id number] 2.16.840.1.445654.3.579.2.462 Unknown [id number] 2.16.840.1.707806.3.579.2.462 Unknown [id number] 2.16.840.1.174436.3.579.2.462 Unknown [id number] 2.16840.1.244374.3.579.2.462 Unknown [id number] 2.16.840.1.308155.3.579.2.462 Unknown [id number] 2.16.840.1.226687.3.579.2.462 Unknown [id number] 2.16.840.1.165070.3.579.2.462 Unknown [id number] 2.16.840.1.941622.3.579.2.462 Unknown [id number] 2.16840.1.711540.3.579.2.462 Unknown [id number] 2.16.840.1.095040.3.579.2.462 Unknown [id number] 2.16.840.1.106460.3.579.2.462 Unknown [id number] 2.16.840.1.098292.3.579.2.462 Unknown [id number] 2.16.840.1.839877.3.579.2.462 Social History Date Type Detail Facility Alcohol use: Alcohol use: [facility] Work Phone: Tobacco use: Tobacco use: [facility] Work Phone: Alcohol use: Alcohol use: [facility]; [facility] Work Phone: Tobacco use: Tobacco use: [facility]; [facility] Work Phone: Start: 03-08-2021 Tobacco smoking status NHIS Unknown if ever smoked [facility] Start: 09-24-2017 None [facility] Start: 09-27-2017 Non-smoker [facility] Start: 1950 Sex Assigned At Female [facility] Start: 04-25-2024 End: 06-09-2024 Tobacco smoking status NHIS Never smoked tobacco (finding) [facility] Start: 05-06-2024 End: 06-01-2024 Sex Female (finding) [facility] NEGATED: Highlighted row Not [facility] Goals Date Patient Goal Desired Activity /State Functional Status Date Assessment Result Facility 09-13-2020 [...] component of a physician's clinical assessment. Test(s) 553614-QHY-M ; 206623-FJI-Z; 475429-Luaaijtsecfjk; 367249-Rshvkzrynqt, Total; 046795-NGY-R (Total); 774936-Ajdoc LDL-P; 246232-LWB Size; 041615-MY-OL Scorewas developed and its performance characteristics determinedby [employer]. It has not been cleared or approved by the Foodand Drug Administration.PATIENT WAS FASTINGPERFORMED BY: [employer] [address] [id number] BY: [employer] [facility] [id number] 05-01-2020 LP-IR Score LP-IR Score 43 [facility]; [facility] Work Phone: Comment on above: INSULIN RESISTANCE M ARKER <--Insulin Sensitive Insulin Resistant--> Percentile in Reference PopulationInsulin Resistance ScoreLP-IR Score Low 25th 50th 75th High <27 27 45 63 >63LP-IR Score is inaccurate if patient is non-fasting. .The LP-IR score is a laboratory developed index that has beenassociated with insulin resistance and diabetes risk and should beused as one component of a physician's clinical assessment. Test(s) 839968-IYS-N ; 048224-CRS-U; 071641-Xuldxgrioklah; 323569-Antfxjxsrzk, Total; 524765-XAB-W (Total); 063033-Pszsu LDL-P; 136979-CLI Size; 274259-SF-TG Scorewas developed and its performance characteristics determinedby [employer]. It has not been cleared or approved by the Foodand Drug Administration.PATIENT WAS FASTINGPERFORMED BY: [employer] [address] [id number] BY: [email or web address] [facility] [id number] 10-26-2019 LP-IR Score LP-IR Score 37 [facility] Work Phone: Comment on above: INSULIN RESISTANCE M ARKER <--Insulin Sensitive Insulin Resistant--> Percentile in Reference PopulationInsulin Resistance ScoreLP-IR Score Low 25th 50th 75th High <27 27 45 63 >63LP-IR Score is inaccurate if patient is non-fasting. .The LP-IR score is a laboratory developed index that has beenassociated with insulin resistance and diabetes risk and should beused as one component of a physician's clinical assessment. Test(s) 081711-RYM-C ; 975169-CTU-E; 197480-ZXS-L; 647163-Lliollaaqvpiy; 012473-Wxmfzunggyl, Total; 455863-ZOJ-X (Total);516537-Lkcnx LDL-P; 884584-RQO Size; 619588-TV-XQ Scorewas developed and its performance characteristics determinedby [employer]. It has not been cleared or approved by the Foodand Drug Administration.PATIENT WAS FASTINGPERFORMED BY: [employer] [address] [id number] BY: [employer] [facility] [id number] 04-21-2019 LP-IR Score LP-IR Score 35 [facility] [...] component of a physician's clinical assessment. Test(s) 280579-IWS-Y ; 207936-SAJ-P; 305666-TMR-K; 424257-Fkukbuactubst; 789933-Eqtftjbbxbe, Total; 662067-QAP-S (Total);775620-Mgesj LDL-P; 427772-PMY Size; 840150-CT-ZM Scorewas developed and its performance characteristics determinedby [employer]MEL DELOR. It has not been cleared or approved by the Foodand Drug Administration.PATIENT WAS FASTINGPERFORMED BY: [employer] [address] [id number] BY: [employer] [facility] [id number] Mental Status Date Assessment Result Facility 06-21-2024 Cognitive function Voice/Name [facility] Work Phone: Clinical Notes 04-25-2024 to 08-29-2024 Note Date & Type Note Facility 08-29-2024 Discharge summary Note Date/Time August 29, 2024 7:00 pm [facility] [address] [place] [address] / REHABILITATION SERVICES DISCHARGE SUMMARY MR#: [id number] Acct: [id number] Name: CAMILLE BERNABE Rep #: [id number] : 1950 74 From: Gisselle Salinas Referring Dr.: Dr. Beryl Keane DO Status: REG RCR Insurance: [employer]URANCE Discharge Summary D/C summary: It has been my pleasure to treat CAMILLE BERNABE referred by Dr. Beryl Keane DO, with the diagnosis of IT band tendonitis/leg pain. R/o spinal stenosis for a total of 9 visit(s). Discharge Date: 08/29/24 Please see the following information for a summary of their discharge status. Subjective Subjective: Pt feels that the rollator inside her house makes her more functional. They did an MRI on the Lumbar and going to do one on the thoracic. She is not walking much better unless she uses the rollator. She has gotten some good exercises to learn how to do some exercises at home. She was just notdoing well with the weather and she hurt so bad. She follow up with her Dr this and next MRI on the . Pain Back pain: Pain Intensity (Out of 10): 0 hip pain: Pain Intensity (Out of 10): 2 B leg pain: Pain Intensity (Out of 10): 2 Overall Improvement % Improvement: 35 Objective Objective/Function: Gait: Walked all the way back to the treatment room with some SOB but did not have to stop to rest on the way back to the treatment room. Goals Goal 1:: I HEP Goal Progress: Goal Met Goal 2:: Be able to walk back to the treatment rooms without having to stop fromthe waiting room Goal Progress: Goal Met Goal 3:: Decrease R leg pain by 50% with walking Goal Progress: Not Progressing Plan Plan: DC PT back to the Dr for further evaluation D/C Information Discharge Comments: DC PT d/c sentence: If there are questions or concerns regarding this patient's physical therapy, please feel free to call me at [phone]. Thank you for the referral of thispatient. Sincerely, ALVERTO Pierre Balance/Gait/Functional tests Balance/Special Test Scores Lower Extremity Functional Score: 19 Improvement % Improvement: 35 <Electronically signed by Gisselle Domingo MPT> 08/29/24 1355 CC: Dr. Beryl Keane DO ~ Signed [facility] Work Phone: 1(475) 539-715406-30-2025 Discharge summary [facility] [address] [place] [address]. [address] [place] [address] / REHABILITATION SERVICES DISCHARGE SUMMARY MR#: [id number] Acct: [id number] Name: CAMILLE BERNABE Rep #: [id number] : 1950 74 From: Gisselle Domingo MP T Referring Dr.: Dr. Beryl Keane DO Status: REG RCR Insurance: [employer] INSURANCE Discharge Summary D/C summary: It has been my pleasure to treat CAMILLE BERNABE referred by Dr. Beryl Keane DO, with thediagnosis of IT band tendonitis/leg pain. R/o spinal stenosis for a total of 9 visit(s). Discharge Date: 08/29/24 Please see the following information for a summary of their discharge status. Subjective Subjective: Pt feels that the rollator inside her house makes her more functional. They did an MRI on the Lumbar and going to do one on the thoracic. She is not walking much better unless she uses the rollator. She has gotten some good exercises to learn how to do some exercises at home. She was just notdoing well with the weather and she hurt so bad. She follow up with her Dr this and next MRI on the . Pain Back pain: Pain Intensity (Out of 10): 0 hip pain: Pain Intensity (Out of 10): 2 B leg pain: Pain Intensity (Out of 10): 2 Overall Improvement % Improvement: 35 Objective Objective/Function: Gait: Walked all the way back to the treatment room with some SOB but did not have to stop to rest on the way back to the treatment room. Goals Goal 1:: I HEP Goal Progress: Goal Met Goal 2:: Be able to walk back to the treatment rooms without having to stop fromthe waiting room Goal Progress: Goal Met Goal 3:: Decrease R leg pain by 50% with walking Goal Progress: Not Progressing Plan Plan: DC PT back to the Dr for further evaluation D/C Information Discharge Comments: DC PT d/c sentence: If there are questions or concerns regarding this patient's physical therapy, please feel free to call me at [phone]. Thank you for the referral of thispatient. Sincerely, Gisselle Domingo, MPT Balance/Gait/Functional tests Balance/Special Test Scores Lower Extremity Functional Score: 19 Improvement % Improvement: 35 08/29/24 1355 CC: Dr. Beryl Keane, DO ~ Signed [facility]04-22-2025 [facility] Medical Records Department [address] [place] [id number] History Physical Exam 06/21/24 1143 MR#: [id number] Acct: [id number] Name: CAMILLE BERNABE Rep #: [id number] : 1950 74 From: Snehal Lozano DO PCP: Dr. Beryl eKane, DO Status:[facility] [place]: [place] [address] History and Physical Date of Admission: 06/21/24 Intake Vital Signs 04/25/2510:09 06/09/2508:54 Height 5 ft 3 in 5 ft 3 in Weight: 246 lb 4 oz 249 lb BMI 43.6 44.1 BP 166/81 H 174/94 H Intake Visit Reasons: D C polypectomy [employer] Required: No Is patient in pain?: No [...] kcal/15 mL oral oil (MCT Oil) omega [id number] oil 600 1 cap PO DAILY 04/25/24 [...] management. I have disc (more content not included)...[facility]04-10-2025 Evaluation note* Diagnosis Onset Date Resolution Status Admit Date Postmenopausal bleeding acute A pril 2024 9:38am Thickened endometrium acute Apr il 2024 9:38am Postmenopausal bleeding acute A pril 2024 11:07am Thickened endometrium acute Apr il 2024 11:07am Postmenopausal bleeding acute M ay 2024 3:25pm Thickened endometrium acute July 05, 2024 3:25pm [facility] Work Phone: 1(746) 174-202202-24-2025 Evaluation note* Diagnosis Onset Date Resolution Status Admit Date Postmenopausal bleeding acute F ebruary 2024 10:19am [facility] Work Phone: 1(653) 468-144102-24-2025 Evaluation note* Diagnosis Onset Date Resolution Status Admit Date Postmenopausal bleeding acute F ebruary 2024 10:19am Postmenopausal bleeding acute A pril 2024 9:38am Thickened endometrium acute Apr il 2024 9:38am Postmenopausal bleeding acute A pril 2024 11:07am Thickened endometrium acute Apr il 2024 11:07am Postmenopausal bleeding acute M ay 2024 3:25pm Thickened endometrium acute July 05, 2024 3:25pm [facility] Work Phone: Evaluation noteNo assessment information available [facility] Work Phone: Instructions* Name Dates Details How to Access Health Informa tion Online using Patient Portal and [employer] Apps Indication:Nonsmoker Start:08-Jun-2020 Instruction Type:Patient Education Patient Instructions Indication:Nonsmoker Start:08-Jun-2020 Instruction Type:Provider Instructions for Treatment How to Access Health Informa tion Online using Patient Portal and [employer] Apps Indication:Nonsmoker Start:11-May-2020 Instruction Type:Patient Education Patient Instructions Indication:Nonsmoker Start:11-May-2020 Instruction Type:Provider Instructions for Treatment How to Access Health Informa tion Online using Patient Portal and [employer] Apps Indication:BMI 40.0-44.9, adult Start:08-Feb-2020 Instruction Type:Patient [...] Informa tion Online using Patient Portal and [employer] Apps Indication:Nonsmoker Start:08-Jun-2020 Instruction Type:Patient Education Patient Instructions Indication:Nonsmoker Start:08-Jun-2020 Instruction Type:Provider Instructions for Treatment How to Access Health Informa tion Online using Patient Portal and [employer] Apps Indication:Nonsmoker Start:11-May-2020 Instruction Type:Patient Education Patient Instructions Indication:Nonsmoker Start:11-May-2020 Instruction Type:Provider Instructions for Treatment How to Access Health Informa tion Online using Patient Portal and [employer] Apps Indication:BMI 40.0-44.9, adult Start:08-Feb-2020 Instruction Type:Patient [...] Informa tion Online using Patient Portal and [employer] Apps Indication:Nonsmoker Start:08-Jun-2020 Instruction Type:Patient Education [...] Informa tion Online using Patient Portal and [employer] Apps Indication:Nonsmoker Start:08-Jun-2020 Instruction Type:Patient Education [...] Informa tion Online using Patient Portal and [employer] Apps Indication:Nonsmoker Start:11-May-2020 Instruction Type:Patient Education Patient Instructions Indication:Nonsmoker Start:11-May-2020 Instruction Type:Provider Instructions for Treatment How to Access Health Informa tion Online using Patient Portal and [employer] Apps Indication:BMI 40.0-44.9, adult Start:08-Feb-2020 Instruction [...] Informa tion Online using Patient Portal and [employer] Apps Indication:BMI 40.0-44.9, adult Start:19-Mar-2022 Instruction Type:Patient [...] Informa tion Online using Patient Portal and [employer] Apps Indication:BMI 40.0-44.9, adult Start:19-Mar-2022 Instruction Type:Patient Education Patient Instructions Indication:BMI 40.0-44.9, adult Start:11-Dec-2021 Instruction Type:Provider Instructions for Treatment How to Access Health Informa tion Online using Patient Portal and [employer] Apps Indication:BMI 40.0-44.9, adult Start:11-Dec-2021 Instruction Type:Patient Education Patient Instructions Indication:Type II diabetes mellitus, well controlled Start:05-Sep-2021 Instruction Type:Provider Instructions for Treatment How to Access Health Informa tion Online using Patient Portal and [employer] Apps Indication:Type II diabetes mellitus, well controlled Start:05-Sep-2021 Instruction Type:Patient Education Patient Instructions Indication:Nonsmoker Start:10-Jul-2021 Instruction Type:Provider Instructions for Treatment How to Access Health Informa tion Online using Patient Portal and [employer] Apps Indication:Nonsmoker Start:10-Jul-2021 Instruction Type:Patient Education obesity counseling Indication:Type II diabetes mellitus, well controlled Start:17-Jun-2021 Instruction Type:Provider Instructions for Treatment Patient Instructions Indication:Nonsmoker Start:17-Jun-2021 Instruction Type:Provider Instructions for Treatment How to Access Health Informa tion Online using Patient Portal and [employer] Apps Indication:Nonsmoker Start:17-Jun-2021 Instruction Type:Patient Education Patient [...] Informa tion Online using Patient Portal and [employer] Apps Indication:BMI 40.0-44.9, adult Start:19-Jun-2022 Instruction Type:Patient Education Patient Instructions Indication:BMI 40.0-44.9, adult Start:19-Mar-2022 Instruction Type:Provider Instructions for Treatment How to Access Health Informa tion Online using Patient Portal and [employer] Apps Indication:BMI 40.0-44.9, adult Start:19-Mar-2022 Instruction [...] Informa tion Online using Patient Portal and [employer] Apps Indication:Nonsmoker Start:25-Sep-2022 Instruction Type:Patient Education Patient [...] Informa tion Online using Patient Portal and [employer] Apps Indication:BMI 40.0-44.9, adult Start:01-Jan-2023 Instruction Type:Patient Education Patient Instructions Indication:Nonsmoker Start:22-Oct-2022 Instruction Type:Provider Instructions for Treatment How to Access Health Informa tion Online using Patient Portal and [employer] Apps Indication:Nonsmoker Start:22-Oct-2022 Instruction Type:Patient Education [...] for referral (narrative)No reason for referral [facility] available[facility] Work Phone: Family History No Family History [...] Informa tion Online using Patient Portal and [employer] Apps Indication:BMI 40.0-44.9, adult Start:08-Feb-2020 Instruction [...] Informa tion Online using Patient Portal and [employer] Apps Indication:BMI 40.0-44.9, adult Start:08-Feb-2020 Instruction Type:Patient [...] Informa tion Online using Patient Portal and [employer] Apps Indication:BMI 40.0-44.9, adult Start:08-Feb-2020 Instruction Type:Patient [...] Informa tion Online using Patient Portal and [employer] Apps Indication:BMI 40.0-44.9, adult Start:08-Feb-2020 Instruction Type:Patient [...] Informa tion Online using Patient Portal and [employer] Apps Indication:Nonsmoker Start:11-May-2020 Instruction Type:Patient Education Patient Instructions Indication:Nonsmoker Start:11-May-2020 Instruction Type:Provider Instructions for Treatment How to Access Health Informa tion Online using Patient Portal and [employer] Apps Indication:BMI 40.0-44.9, adult Start:08-Feb-2020 Instruction Type:Patient [...] unspecified. Scanned Document is available upon request. Effective:5-2020 Advance Directive Response Recorded Date/ Time Living Will Yes September 24, 2017 2:22pm Power of Jtac Yes September 24 2:22pm Name Dates Details Living Will - [...] Directive Response Recorded Date/ Time Living Will No June 09, 2024 11:32am Do you have a Healthcare Power of Jtac? No June 09, 2024 11:32am Summary Purpose Chief Complaint and Reason for [...] and resp systems May 30, 2024 1:37pm Chief Complaint Admit Date ENLARGED FIBROID UTERUS (CIM) April 032024 10:19am Symptoms involving circ and resp systems May 30, 2024 1:37pm D&C polypectomy June 09, 2024 9:3 8am PREOP June 14, 2024 10: 01am Hysteroscopy,Dilation and Curettage, Azeem ypectomy June 21, 2024 11:07am Hysteroscopy,Dilation and Curettage, Azeem ypectomy June 21, 2024 11:43am 2 wk D&C polypectomy July 05, 2024 3:25p m PAIN IN LEG August 13, 2024 8:05 am LEG PAIN. RX HERE August 17, 2024 1:00 pm Reason for Visit Admit Date Postmenopausal bleeding April 25 10:19am Postmenopausal bleeding June 09, 2024 9:38am Thickened endometrium June 09, 2024 9 :38am Postmenopausal bleeding June 21, 2024 11:07am Thickened endometrium June 21, 2024 1 1:07am Postmenopausal bleeding July 05, 2024 3: 25pm Thickened endometrium July 05, 2024 3:25 pm Chief Complaint Admit Date Symptoms involving circ and resp systems May 30, 2024 1:37pm D&C polypectomy June 09, 2024 9:3 8am PREOP June 14, 2024 10: 01am Hysteroscopy,Dilation and Curettage, Azeem ypectomy June 21, 2024 11:07am Hysteroscopy,Dilation and Curettage, Azeem ypectomy June 21, 2024 11:43am 2 wk D&C polypectomy July 05, 2024 3:25p m PAIN IN LEG August 13, 2024 8:05 am Type II diabetes mellitus well controlle d August 22, 2024 2:21pm CT CALCIUM SCORING August 22, 2024 2:28 pm LEG PAIN. RX HERE August 29, 2024 1:30 pm Reason for Visit Admit Date Postmenopausal bleeding June 09, 2024 9:38am Thickened endometrium June 09, 2024 9 :38am Postmenopausal bleeding June 21, 2024 11:07am Thickened endometrium June 21, 2024 1 1:07am Postmenopausal bleeding July 05, 2024 3: 25pm Thickened endometrium July 05, 2024 3:25 pm Additional Source Comments INFORMATION SOURCE (unrecogn ized section and content) DATE CREATED AUTHOR 06/19/2022 [facility] DATE CREATED AUTHOR AUTHOR'S ORGANIZ ATION 09/02/2024 [facility] Care Teams (unrecognized sec tion and content) Team Status: Active Member Role Status Dates Dr. Tim Hernandez , DO Family Provider Active Dr. Beryl Keane , DO Primary Care Provider Active Team Status: Inactive Member Role Status Dates Dr. Beryl Keane , DO Primary Care Provider Active Dr. Larry Hays MD Attending Provider Active Team Status: Inactive Member Role Status Dates Dr. Beryl Keane , DO Primary Care Pr ovider, Attending Provider, [...] Provider Active S tart: May 30, 2024 Team Status: Inactive Member Role Status Dates Dr. Beryl Keane DO Primary Care Provider Active Start: June 09, 2024 End: June 09, 2024 Dr. Beryl Keane DO Referring Provider Active Start: June 09, 2024 End: June 09, 2024 Dr. Snehal Lozano DO Attending Provider Activ e Start: June 09, 2024 End: June 09, 2024 Team Status: Active Member Role Status Dates Dr. Beryl Keane DO Primary Care Provider Active Start: June 14, 2024 End: June 14, 2024 Dr. Link Jeffrey MD Attending Provider Active Start: June 14, 2024 End: June 14, 2024 Dr. Snehal Lozano DO Referring Provider Activ e Start: June 14, 2024 End: June 14, 2024 Team Status: Inactive Member Role Status Dates Dr. Beryl Keane DO Primary Care Provider Active Start: June 21, 2024 End: June 21, 2024 Dr. Snehal Lozano DO Attending Provider Activ e Start: June 21, 2024 End: June 21, 2024 Dr. Snehal Lozano DO Referring Provider Activ e Start: June 21, 2024 End: June 21, 2024 Team Status: Active Member Role Status Dates Dr. Beryl Keane DO Primary Care Provider Active Start: June 21, 2024 Dr. Snehal Lozano DO Attending Provider Activ e Start: June 21, 2024 Dr. Snehal Lozano DO Referring Provider Activ e Start: June 21, 2024 Dr. Snehal Lozano DO Other Provider Active Start: June 21, 2024 Team Status: Inactive Member Role Status Dates Dr. Beryl Keane DO Primary Care Provider Active Start: July 05, 2024 End: July 05, 2024 Dr. Beryl Keane DO Referring Provider Active Start: July 05, 2024 End: July 05, 2024 Dr. Snehal Lozano DO Attending Provider Activ e Start: July 05, 2024 End: July 05, 2024 Team Status: Inactive Member Role Status Dates Dr. Beryl Keane DO Primary Care Provider Active Start: August 13, 2024 End: August 13, 2024 Dr. Beryl Keane DO Attending Provider Active Start: August 13, 2024 End: August 13, 2024 Dr. Beryl Keane DO Referring Provider Active Start: August 13, 2024 End: August 13, 2024 Team Status: Active Member Role Status Dates Dr. Beryl Keane DO Primary Care Provider Active Start: August 17, 2024 Dr. Beryl Keane DO Attending Provider Active Start: August 17, 2024 Dr. Beryl Keane DO Referring Provider Active Start: August 17, 2024 Team Status: Active Member Role/Relationship Status Dates Dr. Beryl Keane DO Primary Care Provider Active Team Status: Inactive Member Role/Relationship Status Dates Dr. Beryl Keane DO Primary Care Provider Active Start: May 30, 2024 End: May 30, 2024 Dr. Beryl Keane DO Attending Provider Active Start: May 30, 2024 End: May 30, 2024 Dr. Beryl Keane DO Referring Provider Active Start: May 30, 2024 End: May 30, 2024 Team Status: Active Member Role/Relationship Status Dates Dr. Beryl Keane DO Primary Care Provider Active Start: May 30, 2024 Dr. Larry Hays MD Attending Provider Active S tart: May 30, 2024 Team Status: Inactive Member Role/Relationship Status Dates Dr. Beryl Keane DO Primary Care Provider Active Start: June 09, 2024 End: June 09, 2024 Dr. Beryl Keane DO Referring Provider Active Start: June 09, 2024 End: June 09, 2024 Dr. Snehal Lozano , DO Attending Provider Activ e Start: June 09, 2024 End: June 09, 2024 Team Status: Active Member Role/Relationship Status Dates Dr. Beryl Keane , DO Primary Care Provider Active Start: June 14, 2024 End: June 14, 2024 Dr. Link Jeffrey MD Attending Provider Active Start: June 14, 2024 End: June 14, 2024 Dr. Snehal Lozano , DO Referring Provider Activ e Start: June 14, 2024 End: June 14, 2024 Team Status: Inactive Member Role/Relationship Status Dates Dr. Beryl Keane , DO Primary Care Provider Active Start: June 21, 2024 End: June 21, 2024 Dr. Snehal Lozano , DO Attending Provider Activ e Start: June 21, 2024 End: June 21, 2024 Dr. Snehal Lozano , DO Referring Provider Activ e Start: June 21, 2024 End: June 21, 2024 Team Status: Active Member Role/Relationship Status Dates Dr. Beryl Keane , Primary Care Provider Active Start: June 21, 2024 Dr. Snehal Lozano , DO Attending Provider Activ e Start: June 21, 2024 Dr. Snehal Lozano , DO Referring Provider Activ e Start: June 21, 2024 Dr. Snehal Lozano , DO Other Provider Active Start: June 21, 2024 Team Status: Inactive Member Role/Relationship Status Dates Dr. Beryl Keane DO Primary Care Provider Active Start: July 05, 2024 End: July 05, 2024 Dr. Beryl Keane DO Referring Provider Active Start: July 05, 2024 End: July 05, 2024 Dr. Snehal Lozano , DO Attending Provider Activ e Start: July 05, 2024 End: July 05, 2024 Team Status: Inactive Member Role/Relationship Status Dates Dr. Beryl Keane , DO Primary Care Provider Active Start: August 13, 2024 End: August 13, 2024 Dr. Beryl Keane DO Attending Provider Active Start: August 13, 2024 End: August 13, 2024 Dr. Beryl Keane , DO Referring Provider Active Start: August 13, 2024 End: August 13, 2024 Team Status: Active Member Role/Relationship Status Dates Dr. Beryl Keane DO Primary Care Provider Active Start: August 22, 2024 Dr. Beryl Keane DO Attending Provider Active Start: August 22, 2024 Dr. Beryl Keane DO Referring Provider Active Start: August 22, 2024 Team Status: Active Member Role/Relationship Status Dates Dr. Beryl Keane DO Primary Care Provider Active Start: August 22, 2024 Dr. Larry Hays MD Attending Provider Active S tart: August 22, 2024 Dr. Larry Hays MD Referring Provider Active S tart: August 22, 2024 Team Status: Inactive Member Role/Relationship Status Dates Dr. Beryl Keane DO Primary Care Provider Active Start: August 29, 2024 End: August 29, 2024 Dr. Beryl Keane DO Attending Provider Active Start: August 29, 2024 End: August 29, 2024 Dr. Beryl Keane DO Referring Provider Active Start: August 29, 2024 End: August 29, 2024 Goals (unrecognized section and content) Goals [...] BE BASED ON THE PRIMARY CLINICAL RECORDS. [facility]. provides no warranty or guarantee of the accuracy or completeness of information in this document.
== END | disposition home or self-care (01) ==
PROVIDERS: PCP Internal Medicine; Referring Provider Internal Medicine; Visit Provider Internal Medicine
DX: M51.369 Other intervertebral disc degeneration, lumbar region without mention of lumbar back pain or lower extremity pain (principal); R93.7 Abnormal findings on diagnostic imaging of other parts of musculoskeletal system
CPT/HCPCS: 72157; 72158; A9575

== ENCOUNTER → 2024-09-19 | Outpatient (CLI) | payer MEDICARE, SELFPAY ==
--- NOTE | 2024-09-19 10:33 | BI_ITS ---
EXAM: SCRN MAMM (CAD)W/AMPARO BILAT DATE: 09/19/2024 CLINICAL HISTORY: F, Age 74 y/o , SCREENING TECHNIQUE: SCRN MAMM (CAD)W/AMPARO BILAT COMPARISON: Mammogram study dated 04/21/2019 FINDINGS: TISSUE DENSITY: There are scattered areas of fibroglandular density. Bilateral Breast Mammographic Findings: There are no suspicious masses, suspicious cluster of microcalcifications, architectural distortion or secondary signs of malignancy identified in either breast. Benign-appearing round microcalcifications are seen in both breast. Benign-appearing round microcalcifications are seen in both breasts. Benign-appearing secretory type calcifications are seen in the left breast. BI/SCRN MAMM (CAD)W/AMPARO BILAT IMPRESSION: Benign screening mammogram. OVERALL FINAL ASSESSMENT BI-RADS 2: BENIGN RECOMMENDATION: Routine annual follow-up in 1 Year A letter with findings and recommendations will be mailed to the patient. Reading Location: [id number]
== END | disposition home or self-care (01) ==
LOC: OPBI 10:32
PROVIDERS: PCP Internal Medicine; Referring Provider Internal Medicine; Visit Provider Internal Medicine
DX: Z12.31 Encounter for screening mammogram for malignant neoplasm of breast (principal)
CPT/HCPCS: 77063; 77067

== ENCOUNTER → 2024-11-01 | Outpatient (CLI) | payer MEDICARE, SELFPAY ==
--- NOTE | 2024-11-01 08:05 | US_ITS ---
PROCEDURE: ABDOMEN LIMITED 11/01/2024 REASON FOR EXAM: RUQ PAIN TECHNIQUE: Procedure Code: USABDL Modality: US Procedure: ABDOMEN LIMITED COMPARISON: Prior study dated October 01, 2022. FINDINGS: Liver: Diffusely echogenic suggesting fatty infiltration. The liver is enlarged and measures 23.5 cm. Gallbladder: No evidence of gallstones. The gallbladder wall is not thickened. Common bile duct: Normal measuring 3.5 mm . Pancreas: Normal Other: The right kidney measures 14.2 cm x 6.3 cm 4.2 cm. There is evidence of a 8.9 cm 9.7 cm 7.4 cm right renal cyst. No right upper quadrant ascites. US/Abdomen Limited IMPRESSION: Hepatomegaly and diffuse fatty infiltration of the liver. Right renal cyst. The gallbladder is unremarkable. Reading Location: [place] [address]
== END | disposition home or self-care (01) ==
PROVIDERS: PCP Internal Medicine; Referring Provider Internal Medicine; Visit Provider Internal Medicine
DX: R10.11 Right upper quadrant pain (principal)
CPT/HCPCS: 76705

== ENCOUNTER → 2024-11-03 | Outpatient (CLI) | payer MEDICARE, SELFPAY ==
--- NOTE | 2024-11-03 07:59 | NM_ITS ---
PROCEDURE: BONE SCAN LIMITED AREA 11/03/2024 REASON FOR EXAM: ABNORMAL MRI, LUMBAR SPINE (R93.7) TECHNIQUE: Procedure Code: NMBOL Modality: NM Procedure: BONE SCAN LIMITED AREA Anterior posterior and bilateral lateral static images of the lumbosacral spine and pelvis were obtained with imaging at 3.5 hours, following radiopharmaceutical injection. RADIOPHARMACEUTICAL: 26.0 mCi Technetium-99m MDP IV COMPARISON: MRI lumbar spine, 09/07/2024. CT abdomen and pelvis, 10/29/2022. FINDINGS: Bones: There is increased activity at the L4-5 level consistent with degenerative disc disease. No focal abnormalities are noted within the L5 vertebral body. There is a focus of increased activity in the area of the right SI joint. There is a cystic area contiguous with the right SI joint seen on the CT examination of 2022, consistent with a synovial cyst. Kidneys: There is a photopenic area in the lower pole of the right kidney consistent with a large cortical cyst. There is normal activity in the bladder. NM/Bone Scan Limited Area IMPRESSION: 1. Degenerative disc disease, L4-5. 2. Area of increased activity in the right SI joint consistent with a synovial cyst. 3. Other findings as noted. Reading Location: [id number]
== END | disposition home or self-care (01) ==
PROVIDERS: PCP Internal Medicine; Referring Provider Internal Medicine; Visit Provider Internal Medicine
DX: R93.7 Abnormal findings on diagnostic imaging of other parts of musculoskeletal system (principal)
CPT/HCPCS: 78300; A9503

== ENCOUNTER → 2024-11-25 | Outpatient (CLI) | payer MEDICARE, SELFPAY ==
--- NOTE | 2024-11-25 09:10 | US_ITS ---
PROCEDURE: ELASTOGRAPHY PARENCHYMA/ORGAN, 11/25/2024 REASON FOR EXAM: ELASTOGRAPHY PARENCHYMA/ORGAN (LIVER); US RUQ, NEED ELESTOGRAPHY COMPARISON: 10/29/2022 ; note that images only are available for review, the report is not available at the time of the dictation. TECHNIQUE: Elastography was performed for non-invasive assessment of liver tissue stiffness utilizing a Apollidon S-shear wave imaging unit. FINDINGS: Number of measurements: 6. US probe: CA1-7A. EQI median: 6.0 kPa EQI median velocity: 1.4 m/s IQR/Med: 16.3% (kPa) and 9.1% (m/s). If the IQR/Med is IQR/median >30% (for kPa) or >15% in m/s, the variance in the measurements is a large and the accuracy of the measurement may be in question. US/Elastography Parenchyma/Organ IMPRESSION: 1. Liver stiffness is 6.0 kPa. Per the below 2020 SRU criteria, this is suggest estela of compensated advanced chronic liver disease but requires further testing for confirmation. 2. Additional description as above. Assessment is per the Update to the SRU Liver Elastography Consensus Statement (2020) Note that the above assessment of liver fibrosis is vendor-neutral and intended for use in fibrosis related to viral etiologies and non-alcoholic fatty-liver disease (NAFLD); in causes other than viral hepat itis and NAFLD, the cutoff values are currently not well established. In some patients with NAFLD, the cutoff values for cACLD may be lower (7-9 kPa). Note also that in the setting of elevated LFTs, nonfasting or vascular congestion, the stage of lifer fibrosis may be overestimated. Previous SRU reference values: <1.37 m/s (5.7kPa): No to mild fibrosis 1.37 m/s - 2.2 m/s: Moderate to severe fibrosis >2.2 m/s (15kPa): Significant fibrosis / cirrhosis Reading Location: [id number]
== END | disposition home or self-care (01) ==
PROVIDERS: PCP Internal Medicine; Referring Provider Internal Medicine; Visit Provider Internal Medicine
DX: K76.0 Fatty (change of) liver, not elsewhere classified (principal)
CPT/HCPCS: 76981

== ENCOUNTER → 2024-12-01 | Outpatient (CLI) | payer MEDICARE, SELFPAY ==
--- NOTE | 2024-12-01 10:57 | NM_ITS ---
PROCEDURE: HEPATOBILLIARY IMG W/PHARM INT 12/01/2024 REASON FOR EXAM: HIDA SCAN W/ CCK; RUQ ABDOMINAL PAIN, US NONDIAGNOSTIC TECHNIQUE: Procedure Code: [id number] Modality: NM Procedure: HEPATOBILLIARY IMG W/PHARM INT Intravenous Choletec with planar imaging of the abdomen. 2.3 mcg Kinevac intravenously approximately 60 minutes after the radiopharmaceutical with additional anterior imaging and a region of interest drawn around the gallbladder to calculate a time-activity curve. RADIOPHARMACEUTICAL: Mebrofenin DOSE 5.8mCi COMPARISON: Available priors FINDINGS: There is good uptake of the radiopharmaceutical by the liver. Normal gallbladder visualization with the gallbladder identified by 30 minutes. Gallbladder Ejection Fraction: 68 % (Normal is >35%) Normal visualization of small bowel following the administration of CCK. NM/Hepatobilliary Img w/Pharm Int IMPRESSION: Normal hepatobiliary scan and ejection fraction. Reading Location: [facility]
--- NOTE | 2024-12-01 10:57 | NM_ITS ---
PROCEDURE: HEPATOBILLIARY IMG W/PHARM INT 12/01/2024 REASON FOR EXAM: HIDA SCAN W/ CCK; RUQ ABDOMINAL PAIN, US NONDIAGNOSTIC TECHNIQUE: Procedure Code: [id number] Modality: NM Procedure: HEPATOBILLIARY IMG W/PHARM INT Intravenous Choletec with planar imaging of the abdomen. 2.3 mcg Kinevac intravenously approximately 60 minutes after the radiopharmaceutical with additional anterior imaging and a region of interest drawn around the gallbladder to calculate a time-activity curve. RADIOPHARMACEUTICAL: Mebrofenin DOSE 5.8mCi COMPARISON: Available priors FINDINGS: There is good uptake of the radiopharmaceutical by the liver. Normal gallbladder visualization with the gallbladder identified by 30 minutes. Gallbladder Ejection Fraction: 68 % (Normal is >35%) Normal visualization of small bowel following the administration of CCK. NM/Hepatobilliary Img w/Pharm Int IMPRESSION: Normal hepatobiliary scan and ejection fraction. Reading Location: [facility]
--- NOTE | 2024-12-01 12:48 | BD_ITS ---
PROCEDURE: DEXA BONE DENSITY STUDY 12/01/2024 REASON FOR EXAM: F, age 74 y/o . Postmenopausal screening. TECHNIQUE: Procedure Code: BDDBD Modality: DX Procedure: DEXA BONE DENSITY STUDY COMPARISON: 2019 FINDINGS: BMD and T-SCORES Lumbar spine: 1.069 g/cm2, T-score 0.1 Levels: L2/L3 Change from prior: Increase of 8.1%. Left femoral neck: 0.843 g/cm2, T-score -0.1 Femoral neck comparison data not recommended for monitoring change. Prior T-score Left total hip: 0.922 g/cm2, T-score -0.2 Change from prior: Decrease of 10.4%. Right femoral neck: 0.583 g/cm2, T-score -2.4 Femoral neck comparison data not recommended for monitoring change. Prior T-score Right total hip: 0.953 g/cm2, T-score 0.1 Change from prior: Decrease of 4.6%. The World Health Organization has defined the following categories based on bone density: Normal bone density: T-score equal to or greater than -1.0 Osteopenia: T-score between -1.0 and -2.5 Osteoporosis: T-score equal to or less than -2.5 FRAX (or Comparable) Fracture Risk Assessment: 10 Year Probability of Fracture: Major Osteoporotic Fracture: 12% Hip Fracture: 3.0% (Note: FRAX is not to be reported in setting of normal range bone density, osteoporosis on DEXA, known history of osteoporosis, prior osteoporotic hip or vertebral fracture, or for any patient undergoing pharmacological treatment for bone loss.) The National Osteoporosis Foundation (NOF) recommends pharmacological treatment for patients with a FRAX 10-year risk of 3% or higher for a hip fracture, or 20% or higher for a major osteoporotic fracture, to prevent osteoporosis and reduce fracture risk. The patient does not meet the pharmacological treatment recommendations for prevention of osteoporosis. BD/Dexa Bone Density Study IMPRESSION: OSTEOPENIA. Recommend follow-up as clinically warranted. Reading Location: [id number]
== END | disposition home or self-care (01) ==
LOC: NM 10:54
PROVIDERS: PCP Internal Medicine; Referring Provider Internal Medicine; Visit Provider Internal Medicine
DX: R10.11 Right upper quadrant pain (principal); Z78.0 Asymptomatic menopausal state
CPT/HCPCS: 77080; 78227; A9537; J2805

== ENCOUNTER → 2025-01-18 | Outpatient (CLI) | payer MEDICARE, SELFPAY ==
--- NOTE | 2025-01-18 15:20 | MRI_ITS ---
EXAM: PELVIS (ROUTINE) 01/18/2025 CLINICAL HISTORY: SI JOINT CYSTIC LESION. TECHNIQUE: Procedure Code: MRIPEL Modality: MR Procedure: PELVIS (ROUTINE) Multiplanar and multisequence images were obtained pelvis without intravenous gadolinium contrast. CONTRAST: None COMPARISON: MR July 2024 FINDINGS: Joint space narrowing and osteophyte formation both superior sacroiliac joints righ slightly worse than left. No evidence of erosive changes. No fracture. Bony pelvis otherwise negative. Mild degenerative changes in the hips. Pubic rami negative. Remainder of the bony pelvis negative. Heterogeneous mass within the uterus measures 4.1 by 4.6 cm likely uterine leiomyoma. Remainder of the soft tissue pelvis negative. Remainder of exam negative. MRI/Pelvis (Routine) IMPRESSION: Age-appropriate degenerative changes of the sacroiliac joints without fracture. Presumed uterine leiomyoma. If symptomatic pelvic ultrasound maybe helpful. Reading Location: [place] [id number]
--- NOTE | 2025-01-18 15:20 | MRI_ITS ---
PROCEDURE: SPINE CERVICAL (ROUTINE) 01/18/2025 REASON FOR EXAM: CERVICAL MYELOPATHY TECHNIQUE: Procedure Code: MRISPC Modality: MR Procedure: SPINE CERVICAL (ROUTINE) Multiplanar and multisequence images were obtained without IV contrast administration. COMPARISON: X-ray cervical spine 05/16/2021. FINDINGS: Vertebrae: Cervical vertebral body heights are preserved. Bone marrow signal is unremarkable. Alignment: Anterolisthesis L3 on L4 by 1 mm. Spinal Cord: Cervical spinal cord is of normal size and signal intensities. Structures at the foramen magnum are unremarkable. C2-3: Facet joint arthropathy. No significant foraminal or canal stenosis. C3-4: Facet joints arthropathy. No significant foraminal or canal stenosis. C4-5: Disc osteophyte complex. Uncovertebral hypertrophy. Facet joints arthropathy. Moderate left and mild right foramina stenosis. No significant canal stenosis. C5-6: Disc desiccation. Uncovertebral hypertrophy. Facet joint arthropathy. Mild left foramina stenosis. No right foraminal or canal stenosis. C6-7: Disc desiccation. Disc bulge. Uncovertebral hypertrophy. Severe right and moderate left foramina stenosis. Mild canal stenosis. C7-T1: Unremarkable MRI/Spine Cervical (Routine) IMPRESSION: Degenerate changes predominantly for severe right and moderate left foramina st enosis at C6-C7. Moderate left foramina stenosis at C4-C5. No significant canal stenosis. Reading Location: [facility]
== END | disposition home or self-care (01) ==
PROVIDERS: PCP Internal Medicine; Referring Provider Orthopaedic Surgery Orthopaedic Surgery of the Spine; Visit Provider Orthopaedic Surgery Orthopaedic Surgery of the Spine
DX: M85.451 Solitary bone cyst, right pelvis (principal); G95.9 Disease of spinal cord, unspecified
CPT/HCPCS: 72141; 72195